=== PATIENT | female | born 1965 | race Caucasian/White ===

== ENCOUNTER 2021-10-06 10:02 | Outpatient (CLI) | payer OTHER, SELFPAY ==
--- OUTSIDE RECORDS SUMMARY | 2021-09-12 09:22 | XMS_ITS | Continuity of Care Document ---
:1965 Author Allergies, Adverse Reactions, Alerts Allergen Type Severity Reaction Last Updated Verified Status No Known Drug Allergy Unknown February Yes Active Allergy 2020 Social History Smoking Status Status Start Date End Date Date of Observat ion Never smoked tobacco March 182020 (finding) 4:28pm Observation Status Observation Response Date of Response History provided by Patient January 09, 2021 1 0:25pm Where do you live? Own home/apt January 09, 2021 1 0:25pm With whom do you live? Spouse January 09 10:25pm Additional Data Assigned Sex Female Problems Active Problems Medical Problem Onset Date Status Essential hypertension October 04, 2012 Active Hyperlipidemia October 04, 2012 Active Hypothyroidism October 04, 2012 Active Gastroesophageal Reflux October 04, 2012 Active Chronic osteoarthritis October 04, 2012 Active Total Shoulder Arthroplasty October 13, 2012 Active Lymphedema of both lower extremities Act chiquita Fatty liver Active Generalized anxiety disorder Active Diabetes mellitus, type II Active Morbid obesity with BMI of 50.0-59.9, Ac tive adult Medications Medication Status Dose Units Route Directions Qty Days Start End Ins tructions Date Date Amlodipine Active 5 MG PO Daily 30 Besylate Celecoxib Active 200 MG PO Daily (Celebrex) 200 Mg CAP Levothyroxine Active 125 MCG PO Daily 30 Sodium Lisinopril Active 40 MG PO Daily 30 Lorazepam Active 1 MG PO Bedtime as needed r 2020 9:17am Metformin Hcl Active 500 MG PO Twice Daily 60 With Meals Metoprolol Active 100 MG PO Twice A Day Tartrate Nystatin Active 1 NABIL TOP Twice A Day (Nystatin as needed Powder) 100,000 Unit/Gm POW Ondansetron Active 4 MG PO Every 6 20 Decembe Hcl Hours as r , (Ondansetron needed 2020 Odt) 4 Mg TAB 4:28pm Pantoprazole Active 40 MG PO Daily 30 Sodium Semaglutide Active 3 MG PO Daily (Rybelsus) 3 Mg TAB Simvastatin Active 10 MG PO Bedtime 30 Zolpidem Active 6.25 MG PO Bedtime as Tartrate Er needed Acetaminophen Disconti 650 MG PO Four Times 100 02 January De cemb nued Daily , er 2020, 11:10am 2020 4:26pm Acetaminophen Disconti 650 MG PO Once May (Tylenol) 325 nued , , Mg TAB 2018 2018 4:36pm 4:37pm Acetaminophen Disconti 1 TABLET PO Every 4-6 uar Au madina W/ Codeine nued Hours y , (Tylenol With 2011 2011 Codeine 11:44am 2:27pm Tablet (#3)) 1 Tablet TAB Acetaminophen Disconti 1-2 TAB PO Every 4 Dece b /Hydrocodone nued Hours as er er Bitart needed , , (Hydrocodone- 2013 2013 Acetaminophen 4:50pm 8:53am ) 5 Mg/325 Mg TAB Acetaminophen Disconti 1-2 TAB PO Q4-6H Prn 50 September /Hydrocodone nued , , Bitart 2012 2013 (Hydrocodone- 12:38pm 8:38am Acetaminophen ) 5 Mg/325 Mg TAB Acetaminophen Disconti 1-2 TAB PO Q4-6H Prn 50 October /Hydrocodone nued Bitart 2012 2013 (Hydrocodone- 3:38pm 8:38am Acetaminophen ) 5 Mg/325 Mg TAB Acetaminophen Disconti 1-2 TAB PO Q4-6H Prn 40 October /Hydrocodone nued , , Bitart 2012 2013 (Hydrocodone- 3:29pm 8:38am Acetaminophen ) 5 Mg/325 Mg TAB Acetaminophen Disconti 1 TABLET PO Every 4-6 Oct be PRN /Hydrocodone nued Hours r 4th, (FOR V ICODIN 5/500) 2010 (Vicodin) 5 9:47am Mg/500 Mg TAB Acetaminophen Disconti 1 - 2 TABLET PO Every 18 October Septem P RN /Hydrocodone nued Evening , Bitart 2006, (Vicodin) 5 2:27pm 2006 Mg/500 Mg TAB 10:01a m Alprazolam Disconti 0.5 MG PO Three Times 18 September Octobe (Xanax) 0.5 nued A Day as 18, r Mg TAB needed 2017, 8:53am 2020 8:19am Alprazolam Disconti 0.5 MG PO Three Times 30 Novemaugust (Xanax) 0.5 nued A Day as r , , Mg TAB needed 2016 2017 3:42pm 8:53am Aspirin Disconti 81 MG PO Daily 100 Novemb nued er 2020 9:09am Atenolol Disconti 50 MG PO Twice A Day August nued 2017 5:47pm Atenolol Disconti 2 TAB PO Daily Septembered 2012 7:27pm Atorvastatin Disconti 1 TABLET PO Daily 90 Februa Calcium nued ry (Lipitor) 10 , Mg TAB 2014 2:42pm Atorvastatin Disconti August Calcium nued , (Lipitor) 20 2007 Mg TAB 4:28pm Azelaic Acid Disconti 15 % EX Twice A Day September 10:24am 10:00a m Azelaic Acid Disconti 15 % EX Twice A Day August nued , 2018 7:54am 10:24a m Azelaic Acid Disconti 15 % EX Twice A Day 30 Februar Ju ne y 2018 2:33pm 7:54am Azelaic Acid Disconti 1 NABIL TOP Twice A Day 50 Novembe De cemb (Finacea) 15 nued r , er % AER 2018 01, 11:27am 2017 3:55pm Azelaic Acid Disconti 1 NABIL TOP Twice A Day 50 Novembe No vemb (Finacea) 15 nued r 29, er % AER 2017, 11:23am 2017 11:28a m Azithromycin Disconti 0 MG PO Daily September TA KE 500 MG (2 TABLETS) BY MOUTH TODAY, THEN 250 MG (1 TABLET) BY (Zithromax) nued r , MOUTH O NCE DAILY FOR 4 MORE DAYS. 250 Mg TAB 2007 2009 10:07am 1:30pm Azithromycin Disconti 0 MG PO Daily NAVI 2 TABLETS TOGETHER TODAY, THEN 1 TABLET ONCE DAILY FOR 4 MORE (Zithromax) nued er er DAYS 250 Mg TAB , 2007 9:23am 9:16am Azithromycin Disconti 0 MG PO Daily August TA KE 2 TABLETS TOGETHER TODAY, THEN 1 TABLET ONCE DAILY FOR 4 MORE (Zithromax) nued er , DAYS 250 Mg TAB 2007 4:28pm 10:43am Benzonatate Disconti 100 MG PO Three Times 15 May (Tessalon nued A Day as , , Saurabh) 100 needed 2018 2018 Mg CAP 5:02pm 11:09a m Benzonatate Disconti 100 MG PO Three Times Novem Mar ch nued A Day as r , , needed 2017 2018 6:19pm 4:08pm Cefadroxil Disconti 1 GM PO Twice A Day 20 Septemberb nued , er 2018 , 11:52am 2017 6:08pm Cefadroxil Disconti 1 GM PO Twice A Day 20 September nued , 2017 10:13am 11:29a m Celebrex Disconti 1 TAB PO Daily September 7:27pm Celecoxib Disconti 200 MG PO 1-2 Times Octoberem (Celebrex) nued Daily , apollo 200 Mg CAP 2006, 10:46am 2006 10:01a m Cephalexin Disconti 500 MG PO Four Times Decemb nued Daily er 2020 4:09pm Cephalexin Disconti 500 MG PO Three Times Octoberob e (Keflex) 500 nued A Day , r Mg CAP 2016, 8:07am 2016 10:31a m Cephalexin Disconti 750 MG PO Three Times Dece mb Monohydrate nued A Day r , er (Keflex) 750 2020, Mg CAP 9:15am 2020 1:36pm Clobetasol Disconti 1 NABIL TOP Twice A Day October e APPLY Propionate nued , r SPARINGLY TO (Clobetasol 2020, AFFECTED AREA Propionate 12:40pm 2020 Cream) 0.05 % 7:50am CRE Clobetasol Disconti 1 NABIL TOP Twice A Day July APPLY Propionate nued , , SPARINGLY TO (Clobetasol 2019 2020 AFFECTED AREA Propionate 10:20am 12:40p Cream) 0.05 % m CRE Clobetasol Disconti 1 NABIL TOP Three Times 15 Novembe Dece mb APPLY Propionate nued A Day as r 4th, er SPARI NGLY TO (Clobetasol needed 2015 04, AFFECTE D AREA Propionate 4:56pm 2019 Cream) 0.05 % 10:32a CRE m Clobetasol Disconti 0.05 % EX Bedtime December Propionate nued , , (Clobetasol 2012 2013 Propionate 4:06pm 8:38am Cream) 0.05 % CRE Cyclobenzapri Disconti 10 MG PO Three Times 30 Novembe M ay ne Hcl nued A Day as r , , needed 2018 2019 5:31pm 10:00a m Cyclobenzapri Disconti 10 MG PO Three Times 20 April J charles ne Hcl nued A Day as , , needed 2018 2018 10:10pm 11:09a m Cyclobenzapri Disconti 10 MG PO Three Times 09 January O ctobe ne Hcl nued A Day as 1st, r 2nd, needed 2015 2015 4:43pm 12:05a m Cyclobenzapri Disconti 10 MG PO Three Times May y ne Hcl nued A Day , , (Flexeril) 10 2012 2012 Mg TAB 9:54am 2:50pm Diazepam Disconti 5 MG PO Once 21 AugustSeptember 19 tab 30 (Valium) 5 Mg nued , 16, minute s prior TAB 2012 2012 to July 4:30pm 2:50pm repeat x1. Fluconazole Disconti 150 MG PO Once 2 Novembe Decemb ta ke 1 tab, nued r 1st, er repeat dose 2020, in 3 days if 2:16pm 2020 no relief in 4:26pm symptoms. Fluconazole Disconti 150 MG PO Once September Repe at dose (Diflucan) nued 17, er in 3 days if 150 Mg TAB 2017, needed. 11:52am 2017 6:08pm Fluconazole Disconti 150 MG PO Once September Repea t dose (Diflucan) nued , 17, in 3 days if 150 Mg TAB 2017 2017 needed. 12:13pm 11:29a m Fluconazole Disconti 150 MG PO Daily Marchem (Diflucan) nued , apollo 150 Mg TAB 2015, 10:15am 2015 1:47pm Fluconazole Disconti 150 MG PO Daily Marchem (Diflucan) nued , apollo 150 Mg TAB 2015, 11:46am 2015 1:47pm Furosemide Disconti 20 MG PO Daily as 15 Decemb (Lasix) 20 Mg nued needed r 3rd, er TAB 2020, 9:15am 2020 4:26pm Furosemide Disconti 20 MG PO Daily Marchem (Lasix) 20 Mg nued 18, apollo TAB 2015, 1:29pm 2015 1:47pm Ibuprofen Disconti 400 MG PO Four Times September nued Daily as , , needed 2017 2018 10:13am 11:09a m Ibuprofen Disconti 200 MG PO Q6h Prn Februa (Motrin Ib) nued ry 200 Mg TAB 2014 2:42pm Ivermectin Disconti 1 % EX Twice A Day 60 Decembe Jesus h Apply M&M (Rosacea) nued r , , sized am ount (Soolantra) 2017 to aff ected % CRE 3:52pm 4:08pm area twice daily Lactobacillus Disconti 1 TAB PO Three Times 90 18 January D ecemb May substitute with another probiotic instead, follow the (Lactobacillu nued A Day , er direct ions on the label, and complete 1 month course. s Probiotic) 2020, 1 Tab TAB 11:40am 2020 4:26pm Levofloxacin Disconti 500 MG PO Daily Octobe (Levaquin) nued er r 500 Mg TAB , , 2015 2016 2:02pm 10:31a m Levofloxacin Disconti 500 MG PO Daily Marchem (Levaquin) nued , apollo 500 Mg TAB 2015, 1:25pm 2015 1:47pm Levofloxacin Disconti 500 MG PO Daily Marchr (Levaquin) nued , y 500 Mg TAB 2015, 8:16am 2015 1:25pm Levothyroxine Disconti 125 MCG PO Daily 30 Januar Sodium nued y 7th, (Synthroid) 2016 150 Mcg TAB 1:31pm Levothyroxine Disconti Decemb Sodium nued er (Synthroid) 5th, 50 Mcg TAB 2007 9:16am Lisinopril Disconti 10 MG PO Daily 60 Decemb nued er 2014 8:27am Lorazepam Disconti 1 MG PO Bedtime as Decemb nued needed er 2020 1:36pm Lorazepam Disconti 0.5-1 MG PO Every 24 September nued Hours as , needed 2017 10:09a m Lorazepam Disconti 0.5 MG PO Once 1 May (Ativan) 0.5 nued er , , Mg TAB 2011 2012 8:37am 9:43am Melatonin Disconti 6 MG PO Bedtime as 60 18 January Decemb nued needed , er 2020, 11:10am 2020 4:26pm Methylprednis Disconti 1 TAB PO As Directed 09 November Ju ne DIRECTED olone (Medrol nued , ON PAC KAGE Dosepak) 4 Mg 2012 2013 [place] 9:04am 8:38am Methylprednis Disconti 1 PACK PO Once 1 Octobe TA KE olone (Medrol nued r 4th, DIREC LINDA ON Dose-[place]) 4 2010 PACKAGE Mg TAB 9:47am Nitrofurantoi Disconti 100 MG PO Twice A Day Dec emb n nued as needed er Monoh/Nitrofu , r Macro 2020 (Nitrofuranto 4:26pm in Monohydrate/M acrocrystalli ne) 100 Mg CAP Nitrofurantoi Disconti 100 MG PO Twice A Day 14 Decembe O ctobe n nued r , r Monoh/Nitrofu 2015, r Macro 5:00pm 2016 (Macrobid) 10:31a 100 Mg CAP m Oxycodone Hcl Disconti 5 MG PO Every 6 December Decem b nued Hours as , er needed 2020, 11:13am 2020 4:09pm Oxycodone Hcl Disconti 5 MG PO Every 4 September nued Hours as , , needed 2017 2017 10:13am 11:29a m Oxycodone/Palomo Disconti 1-2 TABLET PO Every 6 03 January Octo be taminophen nued Hours as 1st, r needed 2015, 4:43pm 2016 10:31a m Oxycodone/Palomo Disconti 1-2 TABLET PO Every 6 September taminophen nued Hours , , (Percocet) 2012 Mg/325 Mg TAB 7:32am 8:38am Oxymetazoline Disconti 1 % EX Every 60 Novembe Octobe Hcl (Topical) nued Morning r , r (Rhofade) 1 % 2018, CRE 10:24am 2020 7:50am Oxymetazoline Disconti 1 % EX Every 60 September Novemb Hcl (Topical) nued Morning 24, er (Rhofade) 1 % 2018, CRE 11:24am 2018 10:24a m Pantoprazole Disconti 40 MG PO Daily 30 Sodium nued ry (Protonix) 40 25th, Mg TABEC 2014 2:42pm Pantoprazole Disconti Septem Sodium nued apollo (Protonix) 40 25th, Mg TABEC 2006 10:01a m Phenazopyridi Disconti 200 MG PO Three Times 10 Decembe O ctobe ne Hcl nued A Day as r 2nd, r (Pyridium) needed 2015, 200 Mg TAB 5:00pm 2016 10:31a m Prednisone Disconti 20 MG PO Twice A Day July nued r , , 2018 2019 5:31pm 10:00a m Prednisone Disconti 40 MG PO Daily October nued 2011 3:02pm 9:43am Prednisone Disconti 40 MG PO Daily May nued er 2011 2:08pm 9:43am Promethazine Disconti 5 ML PO Qhs as 60 May cause dizziness/drowsiness. no driving while taking Hcl/Codeine nued needed , , medicat ion. (Promethazine 2018 2018 /Codeine 5:02pm 12:08a 6.25-10 Mg/5 m Ml) 1 Syp SYP Promethazine Disconti 1 - 2 TSP PO Every 4-6 120 Decembe Trish W/Codeine nued Hours as r , , (Phenergan W/ needed 2007 2009 Codeine) 6.25 10:07am 1:30pm Mg/10 Mg SYRP Promethazine Disconti 5 - ML PO Every 4-6 120 Sept Dece mb W/Codeine nued 10 Hours as er er (Phenergan W/ needed , , Codeine) 6.25 2007 2007 Mg/10 Mg SYRP 9:23am 9:16am Promethazine Disconti 1 EA PO Every 3-4 7 Sept em W/Codeine nued Hours er apollo (Phenergan W/ , , Codeine) 6.25 2006 2007 Mg/10 Mg SYRP 10:43am 9:01am Sulfacetamide Disconti 1 NABIL TOP Daily September Us e every Sodium nued , evening. (Klaron) 10 2018, LOT 11:22am 2020 7:50am Sulfamethoxaz Disconti 1 TABLET PO Twice A Day 14 [facility] ole-Trimethop nued er er rim (Bactrim , , Ds (800/160)) 2013 2013 800 Mg/160 Mg 4:50pm 8:53am TAB Tramadol Hcl Disconti 50 MG PO Every 6 March nued Hours as , , needed 2018 2018 10:10pm 4:08pm Tramadol Hcl Disconti 50-10 MG PO Every 4-6 [facility] (Ultram) 50 nued 0 Hours as r 11th, y 7th, MG /DAY Mg TAB needed 2014 2015 9:16am 1:30pm Tramadol Hcl Disconti 50-10 MG PO Every 6 May M AX 400 (Ultram) 50 nued 0 Hours as , , MG/DA Y Mg TAB needed 2014 2014 2:17pm 11:18a m Tramadol Hcl Disconti 50-10 MG PO Every 6 June M AX 400 (Ultram) 50 nued 0 Hours as , , MG/DA Y Mg TAB needed 2014 2014 11:17am 11:18a m Water Pill Disconti Septem nued apollo 2007 9:01am Zolpidem Disconti 5 MG PO Bedtime September Tartrate nued , , (Ambien) 5 Mg 2012 2013 TAB 7:32am 8:38am Immunizations Immunization Event Date Not Given Dose Hedge [employer] Manager Lot Vac cine Reason Number Number Informatio n Statement (VIS) Deta il COVID-19 Pfizer February 192019 COVID-19 Pfizer April 02, 2020 COVID-19 Pfizer November 222020 Influenza January 03, 1 2014 Influenza December 22, 5 2017 Influenza December 26, 2 2015 Influenza December 26, 3 2016 Influenza January 06, 4 2016 Influenza December 30, 6 2017 Influenza December 26, 8 2019 Influenza November 262019 Influenza December 21, 1 Flublock 2018 Pneumovax Adult March 30, 2019 Shingrix March 30, 2019 Tetanus/Diptheri December 22, 1 a 2011 Tdap December 22, 1 (adolescent/adul 2011 t) Tdap January 01, 2 (adolescent/adul 2011 t) Advance Directives Advance Directive Response Recorded Date/Time Does Pt have Health Care No April 21, 2 016 1:37am Directive? Has patient completed a No March 18, 2 021 4:28pm Health Care Directive? Insurance Providers Guarantor Fide White Address [address] [place] [address] Contact Info. Home Phone: Payer Policy Id Coverage Subscriber's Subscriber Effective Expira tion Id Name Id Date Date Preferred [id number] Rsoie White Plan of Treatment Future Tests Future scheduled test information is unavailable Pending Tests Pending diagnostic test information is unavailable Future Visits Future appointment information is unavailable Referrals to Other Providers Reason for Referral Start Provider Provider Contact Provider Address Referral Date Information Prior auth rec'd, patient going on vacation next week. [facility] will call for [facility], Orthopedic appointment. Services @ Prior auth rec'd, patient going on vacation next week. [facility] will call for NH+C, Orthopedic appointment. Services @ Future Procedures Future procedure information is unavailable Future Medications Future medication information is unavailable Patient Instructions Acetaminophen (By mouth) Oxycodone, Rapid Release (By mouth) Melatonin (By mouth) Probiotic (By mouth) Cellulitis (GEN)
--- NOTE | 2021-10-06 10:15 | CRLHL7_ITS ---
For Patients: As a result of the Century Cures Act, medical imaging exams and procedure reports are released immediately into your electronic medical record. You may view this report before your referring provider. If you have questions, please contact your health care provider. BILATERAL MAMMOGRAM WITH COMPUTER-AIDED DETECTION AND TOMOSYNTHESIS TECHNIQUE: CC and MLO views were obtained. These mammographic images have been obtained using full-field digital technique. These mammographic images were interpreted with the benefit of computer-aided detection. Breast Tomosynthesis was used in this interpretation. COMPARISON FILM: 10/03/2020, 10/03/2019, 06/03/2018. FINDINGS: There are scattered areas of fibroglandular density IMPRESSION: There is no radiographic evidence for malignancy. ASSESSMENT: BI-RADS Category 1: Negative RECOMMENDATION: Routine screening mammogram in 1 year. A lay language report of this examination will be provided to the patient. Jose Martinez M.D. Diagnostic Radiologist [email or web address] CHARLINE/nicko maharaj/Dictated by: Jose Martinez MD @ 10/06/2021 12:23:00 PM (Electronically Signed)
== END 2021-10-06 10:03 | disposition home or self-care (01) ==
PROVIDERS: PCP Family Medicine; Visit Provider Family Medicine
DX: Z12.31 Encounter for screening mammogram for malignant neoplasm of breast (principal)
CPT/HCPCS: 77063; 77067

== ENCOUNTER 2022-10-09 09:59 | Outpatient (CLI) | payer OTHER, SELFPAY ==
--- NOTE | 2022-10-09 10:15 | CRLHL7_ITS ---
For Patients: As a result of the Century Cures Act, medical imaging exams and procedure reports are released immediately into your electronic medical record. You may view this report before your referring provider. If you have questions, please contact your health care provider. BILATERAL SCREENING MAMMOGRAM WITH COMPUTER-AIDED DETECTION AND TOMOSYNTHESIS TECHNIQUE: CC and MLO views were obtained. These mammographic images have been obtained using full-field digital technique. These mammographic images were interpreted with the benefit of computer-aided detection. Breast Tomosynthesis was used in this interpretation. COMPARISON FILM: 10/06/21, 10/03/20, 01/25/20. FINDINGS: There are scattered areas of fibroglandular density IMPRESSION: There is no radiographic evidence for malignancy. ASSESSMENT: BI-RADS Category 2: Benign RECOMMENDATION: Routine screening mammogram in 1 year. A lay language report of this examination will be provided to the patient. Ozzy Franks M.D. Diagnostic/Nuclear Medicine Radiologist [email or web address] NEVA/Dictated by: Ozzy Franks MD @ 10/09/2022 11:31:00 AM (Electronically Signed)
== END 2022-10-09 10:00 | disposition home or self-care (01) ==
LOC: MAMMO 10:02
PROVIDERS: Visit Provider Family Medicine
DX: Z12.31 Encounter for screening mammogram for malignant neoplasm of breast (principal)
CPT/HCPCS: 77063; 77067

== ENCOUNTER 2022-12-04 12:50 | Outpatient (CLI) | payer OTHER, SELFPAY ==
--- NOTE | 2022-12-04 13:00 | CRLHL7_ITS ---
For Patients: As a result of the Century Cures Act, medical imaging exams and procedure reports are released immediately into your electronic medical record. You may view this report before your referring provider. If you have questions, please contact your health care provider. CLINICAL HISTORY: Right eye lump and swelling. TECHNIQUE: CT of the paranasal sinuses without contrast. Multiplanar reformats are included. COMPARISON: Sinus CT from 01/08/2021. FINDINGS: Frontal sinuses/frontal sinus drainage pathways and anterior ethmoid air cells: The frontal sinuses and anterior ethmoid air cells are well aerated. The frontoethmoidal drainage pathways are not obstructed. Posterior sinus group (posterior ethmoid air cells and sphenoid sinuses)/sphenoethmoidal recesses: The sphenoid sinuses and posterior ethmoid air cells are well aerated. The sphenoethmoidal drainage pathways and obstructed. Maxillary sinuses and ostiomeatal complexes: The maxillary sinuses are well aerated, and the maxillary sinus drainage pathways are nonobstructed. Turbinates: Left middle turbinate ce bullosa. Nasal septum: Moderate rightward nasal septal deviation and septal spur. Nasal cavity: No obstructive lesion within the nasal cavity. Skullbase, maxilla, TMJ: Keros type 2 on the left. Keros type 2 on the right. No lytic or blastic osseous lesions. No periapical tooth lucencies. Mastoid air cells are clear. Orbital contents: Within normal limits. Imaged intracranial contents: Within normal limits. Imaged soft tissues structures: Within normal limits. IMPRESSION: 1. No mass or other focal lesion within the right orbital/periorbital region. 2. Paranasal sinuses are well aerated, and their outflow tracts are not obstructed. 3. Moderate rightward nasal septal deviation and septal spur. Please note that all CT scans at this facility use dose modulation, iterative reconstruction, and/or weight-based dosing when appropriate to reduce radiation dose to as low as reasonably achievable. Dictated by Michele Galicia MD @ 12/04/2022 2:33:26 PM (Electronically Signed)
== END 2022-12-04 12:51 | disposition home or self-care (01) ==
LOC: CT 12:52
PROVIDERS: PCP Family Medicine; Visit Provider Nurse Practitioner Family
DX: R22.0 Localized swelling, mass and lump, head (principal); J34.2 Deviated nasal septum
CPT/HCPCS: 70486

== ENCOUNTER 2023-01-13 15:11 | Outpatient (CLI) | payer OTHER, SELFPAY ==
--- NOTE | 2023-01-13 15:30 | CRLHL7_ITS ---
For Patients: As a result of the Century Cures Act, medical imaging exams and procedure reports are released immediately into your electronic medical record. You may view this report before your referring provider. If you have questions, please contact your health care provider. INDICATION: Neck swelling. TECHNIQUE: Face MRI with contrast. The following sequences were obtained. Multiplanar T1 weighted, T2 weighted, stir and post contrast sequences. 20 cc of Dotarem intravenous contrast agent was used. COMPARISON: Sinus CT from 12/04/2022. FINDINGS: There is mild ill-defined enhancement underlying the marker at the right anterior maxillary/nasal junction, series 8, image 10. No mass or inflammatory process elsewhere within the imaged facial soft tissues. Deep spaces of the suprahyoid neck are normal. Visualized intracranial structures are within normal limits. Orbital contents within normal limits. No signal abnormality within the paranasal sinuses or mastoid air cells. No marrow replacing lesions. IMPRESSION: 1. Mild ill-defined enhancement at the right maxillary/nasal junction underlying the skin marker. Nonspecific and could be inflammatory in etiology. No discrete mass is visible at this location or elsewhere within the soft tissues of the neck. 2. No other significant soft tissue findings. Dictated by Michele Galicia MD @ 01/14/2023 3:56:47 PM (Electronically Signed)
== END 2023-01-13 15:12 | disposition home or self-care (01) ==
LOC: MRI 15:11
PROVIDERS: PCP Family Medicine; Visit Provider Otolaryngology
DX: R22.0 Localized swelling, mass and lump, head (principal)
CPT/HCPCS: 70543; A9575

== ENCOUNTER 2023-07-25 19:57 | Emergency (ER) | payer OTHER, SELFPAY ==
[2023-07-25 20:03] VITALS: BP 148/85; PULSE 109; RESP 18; TEMP 36.3; O2SAT 97; BMI 50.9
--- NOTE | 2023-07-25 20:25 | ED_ITS ---
HPI - General Adult General Chief complaint: Extremity Pain/Injury, Lower Stated complaint: R knee pain Time Seen by Provider: 07/25/23 20:15 History of Present Illness HPI narrative: Having on going right knee pain after an injury from December 2022. He right knee is bone on bone . Cortisone shot 3 months ago, and rooster cone injection was at [facility]. No pain relief. 58-year-old woman presenting to the emergency depart with complaint of right knee pain. Describes bone on bone related pain. Has seen orthopedics. She had a fall and injury in December of 2022. Was seen in urgent care I believe through [facility] at that time and directed to [facility] Orthopedics. Has had another flare of pain describing intense shocks of pain from the medial right knee. Notes though being evaluated to have ?ihrz-by-ajkq? in the right knee and recommended for weight loss which she finds rather discouraging at this point preceding knee replacement. Recent cortisone shot now about 3 months ago and also had ?restricted comb? injection as well. Pain has escalated but with this new co mponent. She also is starting to have some pain more in the left knee presumably from compensation. She has a lot of discomfort in attempts to straighten the knee in particular. Walking as course is painful as well. Clarified later that does have Celebrex but this just has not been enough. Does have an older meniscal injury/repair in the right knee some years ago at [facility]. Related Data Home Medications Medication Instructions Recorded Confirmed amlodipine 5 mg tablet 5 mg PO 12/15/21 07/27/23 blood sugar diagnostic (Contour #10 ea 12/15/21 01/21/23 Next Test Strips) blood-glucose meter (Contour Next #1 ea 12/15/21 01/21/23 Meter) celecoxib 200 mg capsule 200 mg PO QDAY 12/15/21 07/27/23 lancets (Microlet Lancet) #100 ea 12/15/21 01/21/23 levothyroxine 125 mcg tablet 125 mcg PO QDAY 12/15/21 07/27/23 lisinopril 40 mg tablet 40 mg PO QDAY 12/15/21 07/27/23 metoprolol tartrate 100 mg tablet 100 mg PO BID 12/15/21 07/27/23 pantoprazole 40 mg tablet,delayed ea PO 12/15/21 07/27/23 release semaglutide 14 mg tablet (Rybelsus) ea PO 12/15/21 07/27/23 simvastatin 10 mg tablet 10 mg PO QDAY 12/15/21 07/27/23 metformin 750 mg tablet,extended 750 mg PO DAILY 11/03/22 07/27/23 release 24 hr Previous Rx's Medication Instructions Recorded clobetasol 0.05 % topical cream 1 applic topical BID PRN itching 11/22/21 #15 grams Allergies Allergy/AdvReac Type Severity Reaction Status Date / Time No Known Drug Allergies Allergy Verified 07/27/23 15:27 Review of Systems Status of ROS: Reports: 6 or more systems reviewed and unremarkable except as noted in History and below PFSH PFSH Surgical History Hx of cholecystectomy ?Z90.49 - Acquired absence of other specified parts of digestive tract (ICD- 10) H/O section ?Z98.891 - History of uterine scar from previous surgery (ICD-10) History of arthroscopy of right knee (11/07/08) ?Z98.890 - Other specified postprocedural states (ICD-10) History of hysteroscopy (01/26/11) ?Z98.890 - Other specified postprocedural states (ICD-10) History of arthroscopy of left shoulder (10/12/12) ?Z98.890 - Other specified postprocedural states (ICD-10) History of arthroscopy of left knee (05/17/14) ?Z98.890 - Other specified postprocedural states (ICD-10) History of arthroscopy of right shoulder (02/21/15) ?Z98.890 - Other specified postprocedural states (ICD-10) Social History Smoking Status: Never smoker Exam Narrative: Exam Narrative: Pleasant. Seated uncomfortably on the edge of the bed. Overweight. Examination of the right knee in question shows reproducible tenderness in the area of the pes anserine bursa. There does appear to be mild joint effusion. Describes pain across the infrapatellar area of the anterior knee. No distal edema. Const: Vital Signs, click to edit/add: Vital Signs - 24 hr 07/25/23 20:03 Temperature 97.4 F L Pulse Rate [Right Pulse Oximeter] 109 H Respiratory Rate 18 Blood Pressure [Ri ght Upper Arm] 148/85 H Pulse Oximetry 97 Oxygen Delivery Me thod Room Air Documenting provider has reviewed patient's vital signs: yes Course Vital Signs Vital signs: Initial Vital Signs Temperature 97.4 F L 07/25/23 20:03 Temperature Source Temporal Artery Scan 07/25/23 20:03 Pulse Rate 109 H 07/25/23 20:03 Pulse Rhythm Regular 07/25/23 20:03 Respiratory Rate 18 07/25/23 20:03 Blood Pressure 148/85 H 07/25/23 20:03 Blood Pressure Mean 106 H 07/25/23 20:03 Blood Pressure Position Sitting 07/25/23 20:03 Pulse Oximetry 97 07/25/23 20:03 Oxygen Delivery Method Room Air 07/25/23 20:03 Vital Signs Temperature 97.4 F L 07/25/23 20:03 Pulse Rate 109 H 07/25/23 20:03 Respiratory Rate 18 07/25/23 20:03 Blood Pressure 148/85 H 07/25/23 20:03 Pulse Oximetry 97 07/25/23 20:03 Oxygen Delivery Method Room Air 07/25/23 20:03 Temperature 97.4 F L 07/25/23 20:03 Pulse Rate 109 H 07/25/23 20:03 Respiratory Rate 18 07/25/23 20:03 Blood Pressure 148/85 H 07/25/23 20:03 Pulse Oximetry 97 07/25/23 20:03 Oxygen Delivery Method Room Air 07/25/23 20:03 Medical Decision Making [facility] Narrative Medical decision making narrative: I am sure she does have osteoarthritic related pain at this point. I think there is a small joint effusion. Primarily need pain management in part to help with sleep lately as well. I do not know that further imaging will be beneficial here today. Cannot provide MRI either. Tenderness over this pes anserine bursa; I think this is the aspect related to major escalation in pain. Would not be injecting this area today. Will give some handout on pes anserine bursa. Would ice this area. Will provide pain management. I have discussed also with orthopedics on-call for close follow-up. Provided with crutches. It sounds like knee immobilizer would be too uncomfortable. See patient discharge plan for further discussion Medical Records Medical records reviewed: Yes I reviewed the patient's medical records Discharge Plan Discharge Clinical Impression: Knee joint pain Patient Disposition: Home w/ Parent or Adult Condition: Stable Additional Instructions: At least over the next few days it seems that resting your knee either with use of crutches or simply less ambulation would be a good idea. With a little food can continue with ibuprofen or at least your Celebrex. Can add up to 1000 mg of acetaminophen per dose. Prescribing [place] which contains 325 mg of acetaminophen per tablet and Flexeril from [facility]. Pending my conversation with Orthopedics I would anticipate then reaching out to you on Wednesday. It seems that you might have some component of this pes anserine bursitis. Take this paperwork in to your follow-up appointment. Like you, I do not think this explains all of your knee pain. Prescriptions: No Action metformin 750 mg tablet extended release 24 hr 750 mg PO DAILY Rybelsus 14 mg tablet PO Patient Comments: TAKE 1 TABLET BY MOUTH EVERY DAY BEFORE A MEAL amlodipine 5 mg tablet 5 mg PO metoprolol tartrate 100 mg tablet 100 mg PO BID lisinopril 40 mg tablet 40 mg PO QDAY levothyroxine 125 mcg tablet 125 mcg PO QDAY pantoprazole 40 mg tablet,delayed release (DR/EC) PO simvastatin 10 mg tablet 10 mg PO QDAY celecoxib 200 mg capsule 200 mg PO QDAY (DME) lancets [Microlet Lancet] Misc See Rx Instructions .ROUTE .MEDSUPPLY Qty: 100 Patient Comments: TEST DAILY Rx Instructions: As directed (DME) Contour Next Test Strips Strip See Rx Instructions .ROUTE .MEDSUPPLY Qty: 10 Patient Comments: TEST DAILY Rx Instructions: As directed (DME) blood-glucose meter [Contour Next Meter] Misc See Rx Instructions .ROUTE .MEDSUPPLY Qty: 1 Patient Comments: USE DIRECTED Rx Instructions: As directed clobetasol 0.05 % cream 1 applic topical BID PRN (Reason: itching) Qty: 15 2RF Follow Up/Referrals: Joann Brown DO [Primary Care Provider] - Stand Alone Forms: [facility] Info Instructions
--- OUTSIDE RECORDS SUMMARY | 2023-07-25 20:47 | XMS_ITS | Encounter Summary ---
Author Name Unknown [facility] Address [address] [address] Care Team Providers Care Ecotherapist Name Role Phone Found, No Pcp Primary Care Provider Unavailab le Encounter Details Date Type Department Care Team (Latest Contact Info) Description 10/04/1996 Orders Only Emilio Dewey MD Social History Tobacco Use Types Packs/Day Years Used Date Smoking Tobacco: Never Assessed Sex and Gender Information Value Date Recorded Sex Assigned at Not on file Gender Identity Not on file Sexual Orientation Not on file documented as of this encounter Plan of Treatment Not on file documented as of this encounter Visit Diagnoses Not on filedocumented in this encounter Care Teams Ecotherapist Relationship Specialty Start Date End Date Found, No Pcp, [address] [place] [address] PCP - General 07/05/23 documented as of this encounter
--- OUTSIDE RECORDS SUMMARY | 2023-07-25 20:47 | XMS_ITS | Encounter Summary ---
Author Name Unknown Organization [facility] Address [address] [address] Care Team Providers Care Bridal Service Sales And Management Name Role Phone Found, No Pcp Primary Care Provider Unavailab le Encounter Details Date Type Department Care Team (Latest Contact Info) Description 05/12/1998 Orders Only Garcia Grijalva Social History Tobacco Use Types Packs/Day Years Used Date Smoking Tobacco: Never Assessed Sex and Gender Information Value Date Recorded Sex Assigned at Not on file Gender Identity Not on file Sexual Orientation Not on file documented as of this encounter Plan of Treatment Not on file documented as of this encounter Visit Diagnoses Not on filedocumented in this encounter Care Teams Bridal Service Sales And Management Relationship Specialty Start Date End Date Found, No Pcp, [address] [place] [address] PCP - General 07/05/23 documented as of this encounter
--- OUTSIDE RECORDS SUMMARY | 2023-07-25 20:47 | XMS_ITS | Encounter Summary ---
Author Name Unknown Organization [facility] Address [address] [place] [address] Care Team Providers Care Wool Washer Name Role Phone Inés Lozada MD Primary Care Provider [phone] Reason for Visit * Reason Comments Refill Encounter Details Date Type Department Care Team (Late st Contact Info) Description 03/30/2023 Refill [facility] [address] [place] [address] Topher Smith MD [address] [place] [id number] Refill Social History Tobacco Use Types Packs/Day Years Used Date Smoking Tobacco: Never Assessed Sex and Gender Information Value Date Recorded Sex Assigned at Not on file Gender Identity Not on file Sexual Orientation Not on file documented as of this encounter Nursing Notes * Carmina Fajardo RN - 03/30/2023 4:36 PM CST Med refill was cancelled. ICATION MANAGER * Rian Mora - 03/30/2023 4:28 PM CST Patient called stating they do not need the medication refill. ICATION MANAGER * Carmina Fajardo RN - 03/30/2023 8:22 AM CST Refill request came in for Diclofenac from the pt's pharmacy. Digital Retoucher l/m on an unidentified vm asking the pt to [facility]. Given the mainline phone number and our hours of operation. Need to know if this is a refill that the pt. Is requesting, or if this is an automated refill request coming from the pharmacy. ICATION MANAGER documented in this encounter Plan of Treatment Not on file documented as of this encounter Visit Diagnoses Diagnosis Primary osteoarthritis of right knee- Primary Primary localized osteoarthrosis, lower leg Rotator cuff syndrome of right shoulder Disorders of bursae and tendons in shoulder region, unspecified documented in this encounter Care Teams Wool Washer Relationship Specialty Start Date End Date Inés Lozada MD [address] [place] [address] PCP - General 02/27/00 06/30/23 documented as of this encounter
--- OUTSIDE RECORDS SUMMARY | 2023-07-25 20:47 | XMS_ITS | Encounter Summary ---
Author Name Unknown Organization [facility] Address [address] [address] Care Team Providers Care Regulatory Administrator Name Role Phone Found, No Pcp Primary Care Provider Unavailab le Encounter Details Date Type Department Care Team (Latest Contact Info) Description 12/19/1996 Orders Only Inés Stauffer Social History Tobacco Use Types Packs/Day Years Used Date Smoking Tobacco: Never Assessed Sex and Gender Information Value Date Recorded Sex Assigned at Not on file Gender Identity Not on file Sexual Orientation Not on file documented as of this encounter Plan of Treatment Not on file documented as of this encounter Visit Diagnoses Not on filedocumented in this encounter Care Teams Regulatory Administrator Relationship Specialty Start Date End Date Found, No Pcp, [address] [place] [address] PCP - General 07/05/23 documented as of this encounter
--- OUTSIDE RECORDS SUMMARY | 2023-07-25 20:47 | XMS_ITS | Encounter Summary ---
Author Name Unknown Organization [facility] Address [address] [place] [address] Care Team Providers Care X Ray Technician Name Role Phone Found, No Pcp Primary Care Provider Unavailab le Encounter Details Date Type Department Care Team (Latest Contact Info) Description 06/12/1999 Orders Only Inés Lozada MD [address] [facility] [place] [address] Social History Tobacco Use Types Packs/Day Years Used Date Smoking Tobacco: Never Assessed Sex and Gender Information Value Date Recorded Sex Assigned at Not on file Gender Identity Not on file Sexual Orientation Not on file documented as of this encounter Plan of Treatment Not on file documented as of this encounter Visit Diagnoses Not on filedocumented in this encounter Care Teams X Ray Technician Relationship Specialty Start Date End Date Found, No PcpMD [address] [place] [address] PCP - General 07/05/23 documented as of this encounter
--- OUTSIDE RECORDS SUMMARY | 2023-07-25 20:47 | XMS_ITS | Clinical Summary ---
Author Name Unknown Organization [facility] Address [address] [place] [address] Care Team Providers Care Campaign Manager Name Role Phone Found, No Pcp MD Primary Care Provider Unavailab le Source Comments You are receiving this document as you are listed as the primary care provider,follow-up provider, or the patient has been referred to you for consultation.This is in compliance with the Medicare and[facility] Hospital[facility] EHR Incentive Program,which states Providers who transition their patient to another setting of careor provider of care or refers their patient to another provider of care shouldprovide summary care record for each transition of care or referral. Pending sale to [facility] Allergies No known active allergies Medications Medication Sig Dispensed Refills Start Date End Date Status amLODIPine (NORVASC) 5 MG tablet Take 1 Tablet (5 mg) by mouth daily. 12/13/2022 Active celecoxib (CELEBREX) 200 MG capsule Take 1 Capsule (200 mg) by mouth daily. 12/31/2022 Active ibuprofen (MOTRIN) 600 MG tablet Take 1 Tablet (600 mg) by mouth every 8 hours. 01/01/2023 Active levothyroxine (SYNTHROID) 125 MCG tablet Take 1 Tablet (125 mcg) by mouth daily. 12/09/2022 Active lisinopril (ZESTRIL) 40 MG tablet Take 1 Tablet (40 mg) by mouth daily. 01/27/2023 Active metFORMIN XR (GLUCOPHAGE XR) 750 MG 24 hour release tablet Take 1 Tablet (750 mg) by mouth daily. 12/31/2022 Active metoprolol tartrate (LOPRESSOR) 100 MG tablet Take 1 Tablet (100 mg) by mouth two times a day. 12/28/[address] (PROTONIX) 40 MG tablet Take 1 Tablet (40 mg) by mouth daily. 12/09/2022 Active RYBELSUS 14 MG tablet Take 1 Tablet by mouth daily. 01/10/2023 Active simvastatin (ZOCOR) 10 MG tablet Take 1 Tablet (10 mg) by mouth daily. 11/10/2022 Active cyclobenzaprine (FLEXERIL) 10 MG tablet Take 1 Tablet (10 mg) by mouth three times a day as needed for Muscle Spasms. 30 Tablet 01/31/2023 Active diclofenac (VOLTAREN) 75 MG enteric coated tablet Take 1 Tablet (75 mg) by mouth two times daily as needed. 30 Tablet 1 01/31/2023 Active Encounters Date Type Department Care Team Description 06/04/2023 9:20 AM CDT Office Visit [facility] [address] [place] [phone] Corona Hansen MD Primary osteoarthritis of right knee (Primary Dx) 05/14/2023 10:20 AM AEMT Office Visit [facility] [address] [place] [phone] Corona Hansen MD Primary osteoarthritis of right knee (Primary Dx) 05/14/2023 Telephone [facility] [id number] [place] [phone] Corona Hansen MD Prior Authorization Request (Gel injection) from Last 3 Months Immunizations Name Administration Dates Next Due PPSV23 (Pneumovax) 06/11/2000 Td 01/16/1998,03/20/1988 Varicella 11/07/1997(Deferred: Immune by Tj loredo) Social History Tobacco Use Types Packs/Day Years Used Date Smoking Tobacco: Never Smokeless Tobacco: Never Tobacco Cessation:Counseling Given: Not Answered Sex and Gender Information Value Date Recorded Sex Assigned at Not on file Gender Identity Not on file Sexual Orientation Not on file Last Filed Vital Signs Vital Sign Reading Time Taken Comments Blood Pressure - - Pulse - - Temperature 37.1 ??C (98.7 ??F) 01/31/2023 4:36 PM CS T Respiratory Rate - - Oxygen Saturation - - Inhaled Oxygen Concentration - - Weight 156.5 kg (345 lb) 05/14/2023 10:00 AM AEMT Height 175.3 cm (5' 9) 05/14/2023 10:00 AM AEMT Body Mass Index 50.95 05/14/2023 10:00 AM AEMT Plan of Treatment Health Maintenance Due Date Last Done Comments Cervical Cancer Screening Due 1965 Colon Cancer Screening Plan Due 1964 Hep C Screening (Preventive Services) 1965 Mammogram 1964 HIV Screening (Preventive Services) 1980 HepB (1) 1983 Adult Preventive Visit 01/16/1999 01/16/1998 Cholesterol 2009 01/16/1998 Diabetes Screening- (based on age and BMI) 02/10/2026 02/10/2023, 11/09/2022, 07/13/2022, Additional history exists DTaP/Tdap/Td (5 - Tdap) 07/13/2032 07/14/19, 01/02/2012, 12/23/2011, Additional history exists Zoster/Shingles Completed 05/19/2021, 03/30/2019 Pneumococcal Aged Out 07/13/2022, 11/2019, 06/11/2000 No longer eligible based on patient's age to complete this topic COVID-19 Vaccine Completed 01/22/2023, , 07/10/2021, Additional history exists Influenza Completed 01/22/2023, 11/21, 12/18/2020, Additional history exists HepA Aged Out No longer eligi ble based on patient's age to complete this topic Hib Aged Out No longer eligi ble based on patient's age to complete this topic IPV (Polio) Aged Out No longer eligi ble based on patient's age to complete this topic MCV4 Aged Out No longer eligi ble based on patient's age to complete this topic Procedures Procedure Name Priority Date/Time Associated Diagnosis Comments HGB A1C (EXTERNAL RESULT) Routine 02/10/2023 2:51 PM AEMT CHOLESTEROL (TOTAL) Routine 01/16/1998 1 1:49 AM AEMT from Last 3 Months or Most Recently Relevant to Health Maintenance Results * (ABNORMAL) CHOLESTEROL (TOTAL) (01/16/1998 11:49 AM AEMT) Cholesterol 238(H) <200 mg/dl [facility] Cholesterol Result should not be interpreted without the patient's history of cardiovascular risk factors. [facility] 01/16/1998 11:4 9 AM AEMT 01/16/1998 11:50 AM AEMT Emilio Dewey MD [facility] [address] [phone] from Last 3 Months or Most Recently Relevant to Health Maintenance Care Teams Campaign Manager Relationship Specialty Start Date End Date Found, No Pcp, [address] [place] [address] PCP - General 07/05/23
--- OUTSIDE RECORDS SUMMARY | 2023-07-25 20:47 | XMS_ITS | Encounter Summary ---
Author Name Unknown Organization [facility] Address [address] [place] [address] Care Team Providers Care Follow Up Clerk Name Role Phone Inés Lozada MD Primary Care Provider [phone] Reason for Visit * Reason Comments CONSULT Pt states she fell p december and has had pain since. Pt treating pain with Tylenol, ib profen, ice, elevation Pt states she will get zingers of pain that shoot down the middle of the knee. Encounter Details Date Type Department Care Team (Latest Contact Info) Description 05/14/2023 10:20 AM FAMILY HELPER Office Visit [facility] [address] [place] [address] Corona Hansen MD [address] [facility] [address] [place] [address] Primary osteoarthritis of right knee (Primary Dx) Social History Tobacco Use Types Packs/Day Years Used Date Smoking Tobacco: Never Smokeless Tobacco: Never Tobacco Cessation:Counseling Given: Not Answered Sex and Gender Information Value Date Recorded Sex Assigned at Not on file Gender Identity Not on file Sexual Orientation Not on file documented as of this encounter Last Filed Vital Signs Vital Sign Reading Time Taken Comments Blood Pressure - - Pulse - - Temperature - - Respiratory Rate - - Oxygen Saturation - - Inhaled Oxygen Concentration - - Weight 156.5 kg (345 lb) 05/14/2023 10:00 AM FAMILY HELPER Height 175.3 cm (5' 9) 05/14/2023 10:00 AM FAMILY HELPER Body Mass Index 50.95 05/14/2023 10:00 AM FAMILY HELPER documented in this encounter Progress Notes * Corona Hansen MD - 05/14/2023 10:20 AM CST Chief Complaint: Right knee pain. History: Patient presents for evaluation of right knee pain. She had an injury to her right knee back on 01/01/2023. She had a fall onto her right side. She was seen in the emergency department and x-rays had been obtained for some complaints of knee and shoulder pain. She was subsequently seen in [facility] on 01/31/2023. At that time they had reviewed her x-rays and noted right knee osteoarthritis. A corticosteroid injection was performed to try in give the patient pain relief. She did note some temporary improvement after the corticosteroid injection but it did not last for more than a couple of weeks. Patient has a prior history of what sounds like arthroscopic surgery on her right knee approximately 8-10 years ago. Records for that procedure are not available. At this point she is having pain on a daily basis with any type of weight- bearing activities. Pain symptoms are significant and are interfering with her ability to do normal daily activities. Improvement with the corticosteroid injection was short-lived. She has tried rest and activity modification. She is tried low-impact exercise activity for the knee. She is tried snpc-pzl-xqbzkkf arthritis medications for the knee pain. All of these have been ineffective at providing meaningful pain relief. Meds, PMHx, PSHx, and allergies - see EMR. ROS: Musculoskeletal ROS is significant for right knee issues outlined above. Exam: Awake and alert. Fully oriented. Range motion of the right knee is satisfactory but with crepitation. There is no erythema or excessive warmth associated with the right knee. BMI is 51. Right knee is stable to varus and valgus stress. Patellar mobility and tracking appears appropriate. CMS intact. Skin intact. Imaging: X-rays from 01/01/2023 were reviewed and show evidence of osteoarthritic change in the right knee with joint space narrowing and joint line osteophytes. Assessment: Right knee osteoarthritis Plan: Treatment options were discussed with the patient. She has failed appropriate conservative management for her knee pain. I recommended to her that the next step would be to try viscosupplementation injection. We will initiate prior authorization for viscosupplementation injection for the right knee. A total of 20 minutes was spent between pre-visit chart review, review of imaging, and direct face to face consultation with the patient. LY HELPER documented in this encounter Plan of Treatment Not on file documented as of this encounter Visit Diagnoses Diagnosis Primary osteoarthritis of right knee- Primary Primary localized osteoarthrosis, lower leg documented in this encounter Care Teams Follow Up Clerk Relationship Specialty Start Date End Date Inés Lozada MD [address] [place] [address] PCP - General 02/27/00 06/30/23 documented as of this encounter
--- OUTSIDE RECORDS SUMMARY | 2023-07-25 20:47 | XMS_ITS | Encounter Summary ---
Author Name Unknown Organization [facility] Address [address] [place] [address] Care Team Providers Care Cyber Security Architect Name Role Phone Inés Lozada MD Primary Care Provider [phone] Reason for Visit * Reason Comments Prior Authorization Request Gel injectio n Encounter Details Date Type Department Care Team (Late st Contact Info) Description 05/14/2023 Telephone [facility] [address] [place] [address] Corona Hansen MD [address] [facility] [address] [place] [address] Prior Authorization Request (Gel injection) Social History Tobacco Use Types Packs/Day Years Used Date Smoking Tobacco: Never Smokeless Tobacco: Never Sex and Gender Information Value Date Recorded Sex Assigned at Not on file Gender Identity Not on file Sexual Orientation Not on file documented as of this encounter Nursing Notes * Lay Ho OA - 05/26/2023 1:46 PM CST LVM for pt that NATANAEL was approved and provided scheduling information. EY ASSOCIATE * Naeem Barahona - 05/26/2023 8:54 AM CST Prior Authorization Approval PA has been approved Date Entered: 05/26/23 8:48 AM JCODE: [id number] Medication: Durolane Dosing/Frequency:60mg once into right knee DX: M17.11 Provider: Tyrone Location: Mien Atkins: /TID: [id number] Insurance: Clarissa Contact/Submission: Clarissa Auth #: [id number] Auth Dates: 05/19/23 - 11/26/23 EY ASSOCIATE * Paola Fajardo CMA - 05/19/2023 3:50 PM CST Routing to PA dept.since the notes are in per provider. EY ASSOCIATE * Paola Fajardo CMA - 05/18/2023 5:42 PM CST Routing to provider and OA EY ASSOCIATE * Naeem Barahona - 05/18/2023 12:23 PM CST Hello, We have been unable to start this PA, as Dr. Hansen's office note is not available. Please let us know when he has dictated it and it is in the chart. Thank you EY ASSOCIATE * Paola Fajardo CMA - 05/14/2023 10:52 AM CST To Whom it May Concern: We are requesting Prior Authorization for this patient's next plan of care. Once approval has been granted we will assist in contacting the patient or scheduling the patient for their appropriate services. Patient Name Fide Millan 1965 Patient Insurance [employer] Body Part Right Knee Procedure Name Gel injection Durolane, Gelyns-3 Euflexxa Ordering Provider Corona Hansen Requesting Location [facility] EY ASSOCIATE documented in this encounter Plan of Treatment Not on file documented as of this encounter Visit Diagnoses Not on filedocumented in this encounter Care Teams Cyber Security Architect Relationship Specialty Start Date End Date Inés Lozada MD [address] [place] [address] PCP - General 02/27/00 06/30/23 documented as of this encounter
--- OUTSIDE RECORDS SUMMARY | 2023-07-25 20:47 | XMS_ITS | Encounter Summary ---
Author Name Unknown Organization [facility] Address [address], [place] [address] Care Team Providers Care Refractory Products Supervisor Name Role Phone Found, No Pcp Primary Care Provider Unavailab le Encounter Details Date Type Department Care Team (Latest Contact Info) Description 11/20/1998 Orders Only Emilio Dewey MD Social History [...] on filedocumented in this encounter Care Teams Refractory Products Supervisor Relationship Specialty Start Date End Date Found, No Pcp, [address] [place] [address] PCP - General 07/05/23 documented as of this encounter
--- OUTSIDE RECORDS SUMMARY | 2023-07-25 20:47 | XMS_ITS | Encounter Summary ---
Author Name Unknown Organization [facility]ending [facility] Address [address], [place] [address] Care Team Providers Care Electrical Equipment Tester Name Role Phone Found, No Pcp Primary Care Provider Unavailab le Encounter Details Date Type Department Care Team (Latest Contact Info) Description 06/11/1999 Orders Only Emilio Dewey MD Social History [...] on filedocumented in this encounter Care Teams Electrical Equipment Tester Relationship Specialty Start Date End Date Found, No Pcp, [address] [place] [address] PCP - General 07/05/23 documented as of this encounter
--- OUTSIDE RECORDS SUMMARY | 2023-07-25 20:47 | XMS_ITS | Encounter Summary ---
Author Name Unknown Organization [facility] Address [address] [place] [address] Care Team Providers Care Plane Tableman Name Role Phone Inés Lozada MD Primary Care Provider [phone] Reason for Referral * (Routine) - New Request Specialty Diagnoses / Procedures Referred By Contac t Referred To Contact Diagnoses Primary osteoarthritis of right knee Procedures DUROLANE (per 1 MG)- quantity =60 Corona Hansen MD [address] [facility] [address] [place] [address] Referral ID Status Reason Start Date Expiration Date V isits Requested Visits Authorized [id number] New Request 07/13/2023 10/11/2024 1 1 Reason for Visit * Reason Comments Follow-up Right knee durolane gel injection Encounter Details Date Type Department Care Team (Latest Contact Info) Description 06/04/2023 9:20 AM CDT Office Visit [facility] [address] [place] [address] Corona Hansen MD [address] [facility] [address] [place] [address] Primary osteoarthritis of right knee (Primary Dx) Social History Tobacco Use Types Packs/Day Years Used Date Smoking Tobacco: Never Smokeless Tobacco: Never Sex and Gender Information Value Date Recorded Sex Assigned at Not on file Gender Identity Not on file Sexual Orientation Not on file documented as of this encounter Patient Instructions * Patient Instructions* Paola Fajardo CMA - 06/04/2023 9:20 AM CDT The right knee was injected with Durolane. Avoid Strenuous Activity for the remainder of the day and avoid activities that cause pain for one to two weeks following the injection. Signs and Symptoms to watch for: If you have any redness, warmth or increasing pain at the site of the injection or develop a fever,please call [phone] Thank you for choosing [facility] for your health care visit today. Corona Hansen MD Orthopedic Surgeon Lower Extremity [facility] Advanced Imaging Scheduling: To schedule advanced imaging including MRI's, CT Scans, Ultrasounds and Fluoroscopic guided injections at a [facility] location please call [phone]. Medication Requests: Prescriptions are not filled on weekends or on weekdays after 3:00 PM. For all medication refills: Request a refill using [employer] or contact your pharmacy. [facility] Workers[employer] [address] [place] [address] (Phone) Email: [email or web address] What is Know Your Cost? Know Your Cost is a service for patients and patient/members to call and receive personalized cost information and estimates across our care group. The phone number is (COST) Wednesday - Wednesday 8 AM to 5 PM Release of Information: Radiology/Imaging Health Information Management [address] [facility] [address] [place] [address] [place] [address] (Phone) [phone] (Phone) [employer] documented in this encounter Progress Notes * Corona Hansen MD - 06/04/2023 9:20 AM CDT Chief Complaint: Right knee pain. History: Patient returns for viscosupplementation injection for her right knee. She has right knee osteoarthritis. Meds, PMHx, PSHx, and allergies - see EMR. ROS: Musculoskeletal ROS is significant for right knee issues outlined above. Exam: Awake and alert. Fully oriented. Range motion of the right knee is satisfactory but with crepitation. There is no obvious swelling or joint effusion. There is no erythema or excessive warmth associated with the right knee. CMS intact. Skin intact. Imaging: No new imaging Assessment: Right knee osteoarthritis Plan: Risks and complications associated with a viscosupplementation injection were discussed with the patient. Verbal informed consent was obtained. After sterile prep of the right knee, the right knee was injected with 60 units of Durolane solution without noted complication. Follow up on an as-needed basis. documented in this encounter Plan of Treatment Not on file documented as of this encounter Visit Diagnoses Diagnosis Primary osteoarthritis of right knee- Primary Primary localized osteoarthrosis, lower leg documented in this encounter Care Teams Plane Tableman Relationship Specialty Start Date End Date Inés Lozada MD [address] [place] [address] PCP - General 02/27/00 06/30/23 documented as of this encounter
--- OUTSIDE RECORDS SUMMARY | 2023-07-25 20:47 | XMS_ITS | Encounter Summary ---
Author Name Unknown Organization [facility] Address [address] [place] [address] Care Team Providers Care Permastone Applicator Name Role Phone Found, No Pcp Primary Care Provider Unavailab le Encounter Details Date Type Department Care Team (Latest Contact Info) Description 08/17/1996 Orders Only Paulina Villegas MD [address] [facility] [address] [place], [place] [address] Social History Tobacco Use Types Packs/Day Years Used Date Smoking Tobacco: Never Assessed Sex and Gender Information Value Date Recorded Sex Assigned at Not on file Gender Identity Not on file Sexual Orientation Not on file documented as of this encounter Plan of Treatment Not on file documented as of this encounter Visit Diagnoses Not on filedocumented in this encounter Care Teams Permastone Applicator Relationship Specialty Start Date End Date Found, No PcpMD [address] [place] [address] PCP - General 07/05/23 documented as of this encounter
--- OUTSIDE RECORDS SUMMARY | 2023-07-25 20:47 | XMS_ITS | Encounter Summary ---
Author Name Unknown Organization [facility] Address [address], [place] [address] Care Team Providers Care Director Medical Safety Name Role Phone Found, No Pcp Primary Care Provider Unavailab le Encounter Details Date Type Department Care Team (Latest Contact Info) Description 04/05/1997 Orders Only Emilio Dewey MD Social History [...] on filedocumented in this encounter Care Teams Director Medical Safety Relationship Specialty Start Date End Date Found, No Pcp, [address] [place] [address] PCP - General 07/05/23 documented as of this encounter
--- OUTSIDE RECORDS SUMMARY | 2023-07-25 20:47 | XMS_ITS | Encounter Summary ---
Author Name Unknown Organization [facility] Address [address], [place] [address] Care Team Providers Care Volcanology Teacher Name Role Phone Found, No Pcp Primary Care Provider Unavailab le Encounter Details Date Type Department Care Team (Latest Contact Info) Description 05/01/1997 Orders Only Dasia Wayne DDS Social History Tobacco Use Types Packs/Day Years Used Date Smoking Tobacco: Never Assessed Sex and Gender Information Value Date Recorded Sex Assigned at Not on file Gender Identity Not on file Sexual Orientation Not on file documented as of this encounter Plan of Treatment Not on file documented as of this encounter Visit Diagnoses Not on filedocumented in this encounter Care Teams Volcanology Teacher Relationship Specialty Start Date End Date Found, No Pcp, [address] [place] [address] PCP - General 07/05/23 documented as of this encounter
--- OUTSIDE RECORDS SUMMARY | 2023-07-25 20:47 | XMS_ITS | Encounter Summary ---
Author Name Unknown Organization [facility] Address [address] [place] [address] Care Team Providers Care Security Attendant Name Role Phone Found, No Pcp Primary Care Provider Unavailab le Encounter Details Date Type Department Care Team (Latest Contact Info) Description 06/30/1997 Orders Only Kyree Coronado MD [address] [place], [place] [id number] Social History Tobacco Use Types Packs/Day Years Used Date Smoking Tobacco: Never Assessed Sex and Gender Information Value Date Recorded Sex Assigned at Not on file Gender Identity Not on file Sexual Orientation Not on file documented as of this encounter Plan of Treatment Not on file documented as of this encounter Visit Diagnoses Not on filedocumented in this encounter Care Teams Security Attendant Relationship Specialty Start Date End Date Found, No Pcp, [address] [place] [address] PCP - General 07/05/23 documented as of this encounter
--- OUTSIDE RECORDS SUMMARY | 2023-07-25 20:47 | XMS_ITS | Encounter Summary ---
Author Name Unknown Organization [facility] Address [address], [place] [address] Care Team Providers Care Ict Help Desk Technician Name Role Phone Found, No Pcp Primary Care Provider Unavailab le Encounter Details Date Type Department Care Team (Latest Contact Info) Description 01/21/1998 Orders Only Emilio Dewey MD Social History [...] on filedocumented in this encounter Care Teams Ict Help Desk Technician Relationship Specialty Start Date End Date Found, No Pcp, [address] [place] [address] PCP - General 07/05/23 documented as of this encounter
--- OUTSIDE RECORDS SUMMARY | 2023-07-25 20:47 | XMS_ITS | Encounter Summary ---
Author Name Unknown Organization [facility] Address [address] [place] [address] Care Team Providers Care Sourcing Internship Name Role Phone Found, No Pcp Primary Care Provider Unavailab le Encounter Details Date Type Department Care Team (Latest Contact Info) Description 12/22/1997 Orders Only Nikhil Ceja MD [address] [place], [place] [address] Social History Tobacco Use Types Packs/Day Years Used Date Smoking Tobacco: Never Assessed Sex and Gender Information Value Date Recorded Sex Assigned at Not on file Gender Identity Not on file Sexual Orientation Not on file documented as of this encounter Plan of Treatment Not on file documented as of this encounter Visit Diagnoses Not on filedocumented in this encounter Care Teams Sourcing Internship Relationship Specialty Start Date End Date Found, No Pcp, [address] [place] [address] PCP - General 07/05/23 documented as of this encounter
--- OUTSIDE RECORDS SUMMARY | 2023-07-25 20:47 | XMS_ITS | Encounter Summary ---
Author Name Unknown Organization [facility] Address [address], [place] [address] Care Team Providers Care Foundry Laborer Coreroom Name Role Phone Found, No Pcp Primary Care Provider Unavailab le Encounter Details Date Type Department Care Team (Latest Contact Info) Description 05/13/1998 Orders Only Per Elias MD Social History Tobacco Use Types Packs/Day Years Used Date Smoking Tobacco: Never Assessed Sex and Gender Information Value Date Recorded Sex Assigned at Not on file Gender Identity Not on file Sexual Orientation Not on file documented as of this encounter Plan of Treatment Not on file documented as of this encounter Visit Diagnoses Not on filedocumented in this encounter Care Teams Foundry Laborer Coreroom Relationship Specialty Start Date End Date Found, No Pcp, [address] [place] [address] PCP - General 07/05/23 documented as of this encounter
--- OUTSIDE RECORDS SUMMARY | 2023-07-25 20:48 | XMS_ITS | Encounter Summary ---
Author Name Unknown Organization [facility] Address [address], [place] [address] Care Team Providers Care University Controller Name Role Phone Found, No Pcp Primary Care Provider Unavailab le Encounter Details Date Type Department Care Team (Latest Contact Info) Description 06/19/1994 Orders Only Inés Stauffer Social History Tobacco [...] on filedocumented in this encounter Care Teams University Controller Relationship Specialty Start Date End Date Found, No Pcp, [address] [place] [address] PCP - General 07/05/23 documented as of this encounter
--- OUTSIDE RECORDS SUMMARY | 2023-07-25 20:48 | XMS_ITS | Encounter Summary ---
Author Name Unknown Organization [facility] Address [address], [place] [address] Care Team Providers Care Fan Installer Name Role Phone Found, No Pcp Primary Care Provider Unavailab le Encounter Details Date Type Department Care Team (Latest Contact Info) Description 12/07/1995 Orders Only Inés Stauffer Social History Tobacco [...] on filedocumented in this encounter Care Teams Fan Installer Relationship Specialty Start Date End Date Found, No Pcp, [address] [place] [address] PCP - General 07/05/23 documented as of this encounter
--- OUTSIDE RECORDS SUMMARY | 2023-07-25 20:48 | XMS_ITS | Encounter Summary ---
Author Name Unknown Organization [facility] Address [address] [address] Care Team Providers Care Field Sales Executive Name Role Phone Found, No Pcp Primary Care Provider Unavailab le Encounter Details Date Type Department Care Team (Latest Contact Info) Description 07/25/1996 Orders Only Inés Stauffer Social History Tobacco [...] on filedocumented in this encounter Care Teams Field Sales Executive Relationship Specialty Start Date End Date Found, No Pcp, [address] [place] [address] PCP - General 07/05/23 documented as of this encounter
--- OUTSIDE RECORDS SUMMARY | 2023-07-25 20:48 | XMS_ITS | Encounter Summary ---
Author Name Unknown Organization [facility] Address [address] [address] Care Team Providers Care Cryogenics Engineer Name Role Phone Found, No Pcp Primary Care Provider Unavailab le Encounter Details Date Type Department Care Team (Latest Contact Info) Description 08/12/1996 Orders Only Joshua Váz[place] [address] [place] [address] Social History Tobacco Use Types Packs/Day Years Used Date Smoking Tobacco: Never Assessed Sex and Gender Information Value Date Recorded Sex Assigned at Not on file Gender Identity Not on file Sexual Orientation Not on file documented as of this encounter Plan of Treatment Not on file documented as of this encounter Visit Diagnoses Not on filedocumented in this encounter Care Teams Cryogenics Engineer Relationship Specialty Start Date End Date Found, No Pcp, [address] [place] [address] PCP - General 07/05/23 documented as of this encounter
--- OUTSIDE RECORDS SUMMARY | 2023-07-25 20:48 | XMS_ITS | Referral Summary ---
Author Name Unknown Organization [facility] Address [address] [place] [address]. [place] [address] Care Team Providers Care Attenuator Name Role Phone Mp Brown Primary Care Provider [phone] Allergies No known active allergies Medications Medication Sig Dispensed Refills Start Date End Date Status cyclobenzaprine (FLEXERIL) 10 MG tablet Take 1 tablet (10 mg) by mouth 3 times daily as needed for muscle spasms 15 tablet 01/01/2023 Active ibuprofen (ADVIL/MOTRIN) 600 MG tablet Take 1 tablet (600 mg) by mouth every 8 hours as needed for moderate pain 30 tablet 01/01/2023 Active Social History Tobacco Use Types Packs/Day Years Used Date Smoking Tobacco: Never Assessed Adolescent Education Answer Date Record ed Getting School Help Needed Not on file 01/01 Sex and Gender Information Value Date Recorded Sex Assigned at Not on file Gender Identity Not on file Sexual Orientation Not on file Last Filed Vital Signs Vital Sign Reading Time Taken Comments Blood Pressure 177/98 01/01/2023 12:27 PM CDT Pulse 97 01/01/2023 12:27 PM CDT Temperature 37.2 ??C (99 ??F) 01/01/2023 12: 27 PM CDT Respiratory Rate 18 01/01/2023 12:2 7 PM CDT Oxygen Saturation 99% 01/01/2023 12: 27 PM CDT Inhaled Oxygen Concentration - - Weight 158.3 kg (348 lb 15.8 oz) 2022 12:27 PM CDT Height 175.3 cm (5' 9) 01/01/2023 12:2 7 PM CDT Body Mass Index 51.54 01/01/2023 12:27 PM CDT Plan of Treatment Not on file Care Teams Attenuator Relationship Specialty Start Date End Date Mp Brown DO [address] [place] [address] PCP - General 01/01/23
--- OUTSIDE RECORDS SUMMARY | 2023-07-25 20:48 | XMS_ITS | Encounter Summary ---
Author Name Unknown Organization [facility] Address [address] [address] Care Team Providers Care Applications Programmer Name Role Phone Found, No Pcp Primary Care Provider Unavailab le Encounter Details Date Type Department Care Team (Latest Contact Info) Description 07/02/1994 [place] [address] [place] [address] Social History Tobacco Use Types [...] on filedocumented in this encounter Care Teams Applications Programmer Relationship Specialty Start Date End Date Found, No Pcp, [address] [facility] [place] [address] PCP - General 07/05/23 documented as of this encounter
--- OUTSIDE RECORDS SUMMARY | 2023-07-25 20:48 | XMS_ITS | Encounter Summary ---
Author Name Unknown Organization [facility] Address [address] [address] Care Team Providers Care Relationship Associate Name Role Phone Found, No Pcp Primary Care Provider Unavailab le Encounter Details Date Type Department Care Team (Latest Contact Info) Description 07/31/1994 Orders Only Emilio Dewey MD Social History [...] on filedocumented in this encounter Care Teams Relationship Associate Relationship Specialty Start Date End Date Found, No Pcp, [address] [place] [address] PCP - General 07/05/23 documented as of this encounter
--- OUTSIDE RECORDS SUMMARY | 2023-07-25 20:48 | XMS_ITS | Encounter Summary ---
Author Name Unknown Organization [facility] Address [address] [address] Care Team Providers Care Investigator Fraud Name Role Phone Found, No Pcp Primary Care Provider Unavailab le Encounter Details Date Type Department Care Team (Latest Contact Info) Description 01/15/1995 Orders Only Emilio Dewey MD Social History [...] on filedocumented in this encounter Care Teams Investigator Fraud Relationship Specialty Start Date End Date Found, No Pcp, [address] [place] [address] PCP - General 07/05/23 documented as of this encounter
--- OUTSIDE RECORDS SUMMARY | 2023-07-25 20:48 | XMS_ITS | Encounter Summary ---
Author Name Unknown Organization [facility] Address [address] [address] Care Team Providers Care Wet Mixer Name Role Phone Found, No Pcp Primary Care Provider Unavailab le Encounter Details Date Type Department Care Team (Late st Contact Info) Description 06/05/1995 Orders Only [facility] Scott Pedroza MD [address] [address] Social History Tobacco Use Types Packs/Day Years Used Date Smoking Tobacco: Never Assessed Sex and Gender Information Value Date Recorded Sex Assigned at Not on file Gender Identity Not on file Sexual Orientation Not on file documented as of this encounter Plan of Treatment Not on file documented as of this encounter Visit Diagnoses Not on filedocumented in this encounter Care Teams Wet Mixer Relationship Specialty Start Date End Date Found, No Pcp, [address] [place] [address] PCP - General 07/05/23 documented as of this encounter
--- OUTSIDE RECORDS SUMMARY | 2023-07-25 20:48 | XMS_ITS | Encounter Summary ---
Author Name Unknown Organization [facility] Address [address] [address] Care Team Providers Care Certified Surgical Technologist Name Role Phone Found, No Pcp Primary Care Provider Unavailab le Encounter Details Date Type Department Care Team (Latest Contact Info) Description 07/06/1994 [place] [address] [address] [facility] [place] [address] Social History Tobacco Use Types Packs/Day Years Used Date Smoking Tobacco: Never Assessed Sex and Gender Information Value Date Recorded Sex Assigned at Not on file Gender Identity Not on file Sexual Orientation Not on file documented as of this encounter Plan of Treatment Not on file documented as of this encounter Visit Diagnoses Not on filedocumented in this encounter Care Teams Certified Surgical Technologist Relationship Specialty Start Date End Date Found, No PcpMD [address] [place] [address] PCP - General 07/05/23 documented as of this encounter
--- OUTSIDE RECORDS SUMMARY | 2023-07-25 20:48 | XMS_ITS | Encounter Summary ---
Author Name Unknown Organization [facility] Address [address], [place] [address] Care Team Providers Care Metal Bonder Name Role Phone Found, No Pcp Primary Care Provider Unavailab le Encounter Details Date Type Department Care Team (Latest Contact Info) Description 05/09/1996 Orders Only Inés Stauffer Social History Tobacco [...] on filedocumented in this encounter Care Teams Metal Bonder Relationship Specialty Start Date End Date Found, No Pcp, [address] [place] [address] PCP - General 07/05/23 documented as of this encounter
--- OUTSIDE RECORDS SUMMARY | 2023-07-25 20:48 | XMS_ITS | Encounter Summary ---
Author Name Unknown Organization [facility] Address [address] [address] Care Team Providers Care Bevel Mill Operator Name Role Phone Found, No Pcp Primary Care Provider Unavailab le Encounter Details Date Type Department Care Team (Latest Contact Info) Description 07/13/1994 Orders Only Adele Garsia Social History Tobacco Use Types Packs/Day Years Used Date Smoking Tobacco: Never Assessed Sex and Gender Information Value Date Recorded Sex Assigned at Not on file Gender Identity Not on file Sexual Orientation Not on file documented as of this encounter Plan of Treatment Not on file documented as of this encounter Visit Diagnoses Not on filedocumented in this encounter Care Teams Bevel Mill Operator Relationship Specialty Start Date End Date Found, No Pcp, [address] [place] [address] PCP - General 07/05/23 documented as of this encounter
--- OUTSIDE RECORDS SUMMARY | 2023-07-25 20:48 | XMS_ITS | Encounter Summary ---
Author Name Unknown Organization [facility] Address [address] [address] Care Team Providers Care Instructional Specialist Name Role Phone Found, No Pcp Primary Care Provider Unavailab le Encounter Details Date Type Department Care Team (Latest Contact Info) Description 07/16/1994 Orders Only Adele Garsia Social History Tobacco [...] on filedocumented in this encounter Care Teams Instructional Specialist Relationship Specialty Start Date End Date Found, No Pcp, [address] [place] [address] PCP - General 07/05/23 documented as of this encounter
--- OUTSIDE RECORDS SUMMARY | 2023-07-25 20:48 | XMS_ITS | Encounter Summary ---
Author Name Unknown Organization [facility] Address [address], [place] [address] Care Team Providers Care Refinery Operator Helper Name Role Phone Found, No Pcp Primary Care Provider Unavailab le Encounter Details Date Type Department Care Team (Latest Contact Info) Description 02/18/1996 Orders Only Emilio Dewey MD Social History [...] on filedocumented in this encounter Care Teams Refinery Operator Helper Relationship Specialty Start Date End Date Found, No Pcp, [address] [place] [address] PCP - General 07/05/23 documented as of this encounter
--- OUTSIDE RECORDS SUMMARY | 2023-07-25 20:48 | XMS_ITS | Encounter Summary ---
Author Name Unknown Organization [facility] Address [address], [place] [address] Care Team Providers Care Practice Support Specialist Name Role Phone Found, No Pcp Primary Care Provider Unavailab le Encounter Details Date Type Department Care Team (Latest Contact Info) Description 07/08/1994 Orders Only Emilio Dewey MD Social History [...] on filedocumented in this encounter Care Teams Practice Support Specialist Relationship Specialty Start Date End Date Found, No Pcp, [address] [place] [address] PCP - General 07/05/23 documented as of this encounter
--- OUTSIDE RECORDS SUMMARY | 2023-07-25 20:48 | XMS_ITS | Clinical Summary ---
Author Name Unknown Organization [facility] Address [place], [place] [address] Care Team Providers Care Tree Trimming Supervisor Name Role Phone Joann Brown DO Primary Care Provider Allergies No known active allergies Medications Medication Sig Dispensed Refills Start Date End Date Status miscellaneous medical supply miscIndications:Foot pain, bilateral,Heel pain, bilateral,Diabetes mellitus type 2, uncontrolled, without complications As directed. Orthotic foot inserts - 1 pair 1 Each 9 Active CPAPIndications:Obstruct chiquita sleep apnea CPAP machine for home use at pressure: 5-15 cmw , Heated humidifier x 1 q 5 yr, Humidifier chamber x 1 q 6 mo, nasal mask x1 q 3mos, with cushion x 2 q mo, standard tubing x 1 q 3 mo, Headgear x 1 q 6 mo, Filters: Disposable x 2 q mo non-disposable filters x1 q 6mo, Length of Need: 99 months, Frequency of use: Daily 1 Device 11 0 Active lancets (Accu-Chek Softclix Lancets)Indications:Type 2 diabetes mellitus without complication, without long-term current use of insulin (HC) TEST DAILY 100 Each 3 1 Active blood-glucose meterIndications:Uncontr olled type 2 diabetes mellitus with hyperglycemia (HC) Dispense meter, test strips, lancets covered by pt ins. E11.9 NIDDM type II - Test 1 time/day 1 Each 1 Active blood sugar diagnostic (FreeStyle Test) stripIndications:Uncontr olled type 2 diabetes mellitus with hyperglycemia (HC) Dispense item covered by pt ins. E11.9 NIDDM type II - Test 1 time/day 100 Each 3 1 Active nystatin powder (Nystop) powderIndications:Yeast infection of the skin Apply topically to affected area(s) one time if needed (Topical yeast infection). 15 g 3 3 Active clobetasol cream 0.05% (TEMOVATE) 0.05 % creamIndications:Dermati tis Use daily as needed 30 g 1 3 Active nitrofurantoin macrocrystals/monohydrat e (Macrobid) 100 mg capsuleIndications:Recur rent UTI Take 1 Capsule (100 mg) by mouth every 12 hours. Use dose before intercourse and dose after intercourse 12 hours after first dose 60 Capsule 3 Active metoprolol tartrate (LOPRESSOR) 100 mg tabletIndications:Essent ial hypertension Take 1 Tablet (100 mg) by mouth two times daily. 180 Tablet 3 3 Active levothyroxine (SYNTHROID) 125 mcg tabletIndications:Hypoth yroidism, unspecified type Take 1 Tablet (125 mcg) by mouth before breakfast. 90 Tablet 3 3 Active pantoprazole (PROTONIX) 40 mg delayed-release tabletIndications:Gastro esophageal reflux disease, unspecified whether esophagitis present Take 1 Tablet (40 mg) by mouth once daily. 90 Tablet 3 3 Active amLODIPine (NORVASC) 5 mg tabletIndications:Essent ial hypertension Take 1 Tablet (5 mg) by mouth once daily. 90 Tablet 3 3 Active metFORMIN (GLUCOPHAGE XR) 750 mg Extended-Release tabletIndications:Type 2 diabetes mellitus without complication, without long-term current use of insulin (HC) Take 1 Tablet (750 mg) by mouth once daily. 90 Tablet 3 3 Active simvastatin (ZOCOR) 10 mg tabletIndications:Pure hypercholesterolemia Take 1 Tablet (10 mg) by mouth at bedtime. 90 Tablet 3 3 Active semaglutide (Rybelsus) 14 mg tabletIndications:Type 2 diabetes mellitus without complication, without long-term current use of insulin (HC) Take 14 mg by mouth once daily before a meal. 30 Tablet 6 4 Active LORazepam (ATIVAN) 1 mg tabletIndications:Insomn ia, idiopathic Take 1 Tablet (1 mg) by mouth at bedtime if needed for Anxiety or Sleep. 15 Tablet 4 Active celecoxib (CELEBREX) 200 mg capsuleIndications:Osteo arthritis, unspecified osteoarthritis type, unspecified site Take 1 Capsule (200 mg) by mouth once daily with a meal. 90 Capsule 4 Active lisinopriL (PRINIVIL; ZESTRIL) 40 mg tabletIndications:Essent ial hypertension Take 1 Tablet (40 mg) by mouth once daily. 30 Tablet 4 Active celecoxib (CELEBREX) 200 mg capsuleIndications:Osteo arthritis, unspecified osteoarthritis type, unspecified site Take 1 Capsule (200 mg) by mouth once daily with a meal. 90 Capsule 3 3 024 Discontin ued(Reord er (E-cancel not sent)) LORazepam (ATIVAN) 1 mg tabletIndications:Insomn ia, idiopathic Take 1 Tablet (1 mg) by mouth at bedtime if needed for Anxiety or Sleep. 15 Tablet 3 024 Discontin ued(Reord er (E-cancel not sent)) lisinopriL (PRINIVIL; ZESTRIL) 40 mg tabletIndications:Essent ial hypertension Take 1 Tablet (40 mg) by mouth once daily. 90 Tablet 3 3 024 Discontin ued(Reord er (E-cancel not sent)) lisinopriL (PRINIVIL; ZESTRIL) 40 mg tabletIndications:Essent ial hypertension Take 1 Tablet (40 mg) by mouth once daily. 30 Tablet 4 024 Discontin ued(Reord er (E-cancel not sent)) Active Problems Problem Noted Date Diagnosed Date Diabetes mellitus type 2, un controlled, without complications 10/12/2018 Obesity 02/21/2013 YOKO 11/23/2012 AHI-38 11/29/2012 Restless legs syndrome (RLS) 11/14/2007 Sleep Apnea 11/2007 RDI-6.2, AHI-4.2 11/14/2007 Unspecified essential hypertension 02/14/2007 Unspecified hypothyroidism 02/14/2007 Pure hypercholesterolemia 02/14/2007 Urinary tract infection, site not specified 01/21 Overview: abx proph after intercourse Resolved Problems Problem Noted Date Diagnosed Date Resolved Date Routine adult health maintenance 01/01/2016 04/15/2020 Overview: Colonoscopy 12/2015 normal repeat in 10 years Encounters Date Type Department Care Team Description 07/12/2023 Refill [facility] [address] [place] [address] Shaqra, Joann Arianna, DO Refill Request (Lisinopril, Celebrex) 07/02/2023 Refill [facility] [address] [place] [address] Shaqra, Joann Arianna, DO Refill Request (LISINOPRIL) 06/30/2023 Refill [facility] [address] [place] [address] Shaqra, Joann Arianna, DO Refill Request (LORazepam (ATIVAN) 1 mg tablet) from Last 3 Months Immunizations Name Administration Dates Next Due COVID-19 Vaccine Spikevax (M oderna 50mcg/0.5mL) 12YO+ 3329-3902 Formula PF 01/22/2023 COVID-19 vaccine (Pfizer-Bio NTech 30mcg/0.3mL) 12YO+ BIVALENT PF, MDV 05/07/2022 COVID-19 vaccine (Pfizer-Bio NTech 30mcg/0.3mL) 12YO+ BRUCE-SUCROSE PF, MDV 07/10/2021 COVID-19 vaccine (Pfizer-Bio NTech 30mcg/0.3mL) PF, MDV 12/16/2020,04/02/2020,03/13/2020 Hepatitis B (Adult) 07/13/2022 Influenza A (H1N1), Live Intranasal 01/17/2014 Influenza RIV4 (Age 18+ Year s) PRESERV FREE 12/21/2018 Influenza, IIV3 (Age 6-35 mos) 12/27/2019 Influenza, IIV3 (Age >=3 years) 12/31/19 18,12/03/2015,01/03/2013,2007 Influenza, IIV4 01/22/2023,12/17/2021 Influenza, IIV4 (=>6mos) MDV 12/18/2020,12/27/19 20 Influenza, Intradermal Inactivated 01/03/2015 Pneumococcal Conj 20-valent (Prevnar 20) 07/13/2022 Pneumococcal Poly,23-Valent (Pneumovax) 03/30/2019 Td (Age >=7 Years) 12/20/1997 Tdap 07/13/2022,12/23/2011,02/14/2007 Zoster (Shingrix-RZV, recombinant) 05/19/2021, Family History Medical History Relation Name Comments No Known Problems Brother Hypertension Father Lung cancer Father Atrial fibrillation Sister Relation Name Status Comments Brother Father Mother Alive Sister Social History Tobacco Use Types Packs/Day Years Used Date Smoking Tobacco: Never Smokeless Tobacco: Never Tobacco Cessation:Counseling Given: Yes Alcohol Use Standard Drinks/Week Comments Not Currently 0 (1 standard drink = 0.6 oz pur e alcohol) a couple times a year PHQ-2 Answer Date Recorded PHQ-2 TOTAL SCORE 0 05/19/2021 Social Connections Answer Date Recorded Frequency of Communication with Friends and Fami ly 0 11/09/2022 Financial Resource Strain Answer Date R ecorded Difficulty of Paying Living Expenses 3 11/09/2022 Difficulty of Paying Living Expenses Not on file 11/09/2022 Food Insecurity Answer Date Recorded Worried About Running Out of Food in the Last Ye ar 1 11/09/2022 Transportation Needs Answer Date Record ed Lack of Transportation (Medical) 1 11/09/2022 Housing Stability Answer Date Recorded Unable to Pay for Housing in the Last Year 1 11/09/2022 Sex and Gender Information Value Date Recorded Sex Assigned at Not on file Gender Identity Not on file Sexual Orientation Not on file Obstetrics History Para Term AB IAB SAB Ectopic Multiple Livin g Live Births 2 2 2 0 0 0 0 0 2 Date Outcome GA Total Labor Labor/2nd/3rd Weight Sex Delivery Anes PTL Arianna A1 A5 Name Cl in Term Term Last Filed Vital Signs Vital Sign Reading Time Taken Comments Blood Pressure 136/82 02/10/2023 3:42 PM [facility] Pulse 99 02/10/2023 3:03 PM [facility] Temperature 36.7 ??C (98.1 ??F) 09/27/2021 12:06 PM C DT Respiratory Rate 20 10/29/2021 2:30 PM CDT Oxygen Saturation 98% 02/10/2023 3:03 PM [facility] Inhaled Oxygen Concentration - - Weight 153 kg (337 lb 6.4 oz) 02/10/2023 3:03 PM [facility] Height 172.7 cm (5' 8) 02/10/2023 3:03 PM [facility] Body Mass Index 51.3 02/10/2023 3:03 PM [facility] Plan of Treatment Upcoming Encounters Date Type Department Care Team (Late st Contact Info) Description 09/01/2023 3:25 PM CDT Office Visit [facility] [address] [place] [address] Joann Brown Arianna, DO [address] [place], [place] [id number] Health Maintenance Due Date Last Done Comments HIV for age 15-65 1979 Mammogram for age 45-75 10/03/2021 10/04/19 21, 10/03/2019, 06/03/2018, Additional history exists Depression screening for age 12+ 05/19/2022 05/19/2021, 04/15/2020, 07/24/2019, Additional history exists Hepatitis B series for Diabe sherif (2 of 3 - 19+ 3-dose series) 08/10/2022 07/13/2022 Influenza for age 50-64 11/21/2023 01/23/20 23, 12/17/2021, 12/18/2020, Additional history exists BMI (ht and wt on same day) for age 18+ 02/11/2024 02/10/2023, 07/13/2022, 05/19/2021, Additional history exists Pap test for age 21-65 04/15/2025 , 04/15/2020, 03/18/2017, Additional history exists Colonoscopy through age 75 12/29/2025 12/30/2015, Lipids for age 45-75 07/14/2027 07/13/2022, 02/17/2021, 04/15/2020, Additional history exists Tetanus booster 07/13/2032 07/13/2022, 05/2011, 02/14/2007, Additional history exists Hepatitis C screening for ag e 18-79 Completed 03/30/2019 Zoster (shingles) series for age 50+ Completed 05/19/2021, 03/30/2019 Pneumococcal series for age 6-64 Completed 07/14/19, 03/30/2019 Tdap Completed 07/13/2022, 05/2011, 02/14/2007 COVID-19 vaccine series Completed 01/23/20, 05/07/2022, 07/10/2021, Additional history exists Procedures Procedure Name Priority Date/Time Associated Diagnosis Comments LC LIPID PANEL AND CHOL/HDL RATIO Routine 07/13/2022 3:05 PM CDT Pure hypercholesterolemia SCAN-MAMMOGRAPHY REPORT 10/03/2020 12:00 AM CDT GOOD HUMOR VENDOR THIN PREP PAP SCREEN IMAGED Routine 04/15/2020 8:45 AM [facility] Pap smear for cervical cancer screening ANTI HCV Routine 03/30/2019 12:27 PM [facility] Need for hepatitis C screening test SCAN-COLONOSCOPY 12/30/2015 12:0 0 AM CDT from Last 3 Months or Most Recently Relevant to Health Maintenance Results * (ABNORMAL) LC LIPID PANEL AND CHOL/HDL RATIO (07/13/2022 3:05 PM CDT) Cholesterol, Total 207(H) 100 - 199 mg/dL 07/15/2022 11:09 AM CDT [facility] Triglycerides 160(H) 0 - 149 mg/dL 07/15/2022 11:09 AM CDT [facility] HDL Cholesterol 73 >39 mg/dL 11:09 AM CDT [facility] VLDL Cholesterol Alex 27 5 - 40 mg/dL 07/15/2022 11:09 AM T [facility] ([facility]) LDL Chol Calc ([facility]) 107(H) 0 - 99 mg/dL 07/15/2022 11:09 AM CDT [facility] ([facility]) T. Chol/HDL Ratio 2.8 0.0 - 4.4 ratio 07/15/2022 11:09 AM T [facility] ([facility]) Comment: ?T. Chol/HDL Ratio ?Men ??Women ?1/2 Avg.Risk ??3.4 ?3.3 ?Avg.Risk ??5.0 ?4.4 ? 2X Avg.Risk ??9.6 ?7.1 ? 3X Avg.Risk 23.4 ?? 11.0 Blood BLOOD SPECIMEN / Unknown Venipuncture / Unknown 07/13/2022 3:05 PM CDT 07/13/2022 3:07 PM CDT Narrative [facility] ([facility]) - 07/15/2022 11:09 AM CDT Performed at: ??01 - [facility] [address] [place], [place] ??[id number] Enrollment Processor: Ugo Marshall MD, Phone: ??[phone] Joann Brown DO SEND OUTS [facility] ([facility]) [facility] [place] [address], * SCAN-MAMMOGRAPHY REPORT (10/03/2020 12:00 AM CDT) Anatomical Region Laterality Modality Other Scanner OTHER * GOOD HUMOR VENDOR THIN PREP PAP SCREEN IMAGED [[id number]] (04/15/2020 8:45 AM [facility]) Case Report Gynecologic Cytology Report ? Case: [id number] ? Authorizing Provider: ??Sherrie Doyle MD ? Collected: ? 04/15/2020 0845 ? Ordering Location: ? [facility] ?? Received: ?04/15/2020 1020 ? Clinic ? First Screen: ?Alexandra, Giselle ? Specimen: ?GOOD HUMOR VENDOR ThinPrep Vial Screening, Cervical ? 04/23/2020 2:58 PM [facility] INTERPRETATION/ RESULT NEGATIVE FOR INTRAEPITHELIAL LESION OR MALIGNANCY (NIL) (none) 04/23/2020 2:58 PM [facility] IMEN ADEQUACY Satisfactory for evaluation Endocervical component present 04/23/2020 2:58 PM [facility] HPV REQUEST HPV and PAP 04/23/2020 2:58 PM [facility] Date of LMP uncertain 04/23/2020 2:58 PM [facility] Last Pap Date 03/18/17 04/23/2020 2:58 PM [facility] Last Pap Result NIL 2:58 PM [facility] Abnormal Pap or Delaplaine Bx in last 5 years No 04/23/2020 2:58 PM [facility] Menstrual Status Postmenopausal 04/23/2020 2:58 PM [facility] Delaplaine Bx Done Today No 04/23/2020 2:58 PM [facility] Additional Information None given 04/23/2020 2:58 PM [facility] Comment: Cytology is screened at [facility] - [address], [place] [address] and [facility] - [address], [place] [address] and [facility] - [address], [place] [address] Interpreted at [facility] - [address], [place] [address] Automated Review Successful 04/23/2020 2:58 PM [facility] Comment:Specimen processed s uccessfully by automated custom car builder device, ThinPrep Imaging System, [employer] ANCILLARY TESTING GOOD HUMOR VENDOR HPV Ordered, Please see separate report 04/23/2020 2:58 PM [facility] Note The pap test is a screening technique, not a diagnostic procedure. It is used primarily to screen for squamous cancers and precursor lesions. Published studies have shown that it is subject to both false negative and false positive results. The pap test should not be used as the sole means to diagnose or exclude pre-malignant and malignant lesions. 04/23/2020 2:58 PM [facility] Other (Cervical) Non-Blood / Unknown 04/15/2020 8:45 AM [facility] 04/15/2020 10:20 AM [facility] Sherrie Doyle MD PATHOLOGY/CYTOLOGY Performing Organization Address [facility]/ZIP Co de Phone Number [facility] [address] [place] [address], [place] * ANTI HCV (03/30/2019 12:27 PM [facility]) HEPATITIS C ANTIBODY Non-React chiquita Non-React chiquita 03/30/2019 7:09 PM [facility] [employer] [facility] Comment:Antibodies to HCV no t detected; does not exclude the possibility of exposure to HCV. Blood BLOOD SPECIMEN / Unknown Butterfly / Unknown 03/30/2019 12:27 PM [facility] 03/30/2019 12:27 PM [facility] Sherrie Doyle MD SEND OUTS [facility] [address] [place] [address], [place] * SCAN-COLONOSCOPY (12/30/2015 12:00 AM CDT) Scanner OTHER from Last 3 Months or Most Recently Relevant to Health Maintenance Care Teams Tree Trimming Supervisor Relationship Specialty Start Date End Date Joann Brown DO [address] [place] [address] PCP - General Family Practice 07/13/22
--- OUTSIDE RECORDS SUMMARY | 2023-07-25 20:48 | XMS_ITS | Encounter Summary ---
Author Name Unknown Organization [facility] Address [address], [place] [address] Care Team Providers Care Geospatial Applications Developer Name Role Phone Found, No Pcp Primary Care Provider Unavailab le Encounter Details Date Type Department Care Team (Latest Contact Info) Description 06/06/1996 Orders Only Inés Stauffer Social History Tobacco [...] on filedocumented in this encounter Care Teams Geospatial Applications Developer Relationship Specialty Start Date End Date Found, No Pcp, [address] [place] [address] PCP - General 07/05/23 documented as of this encounter
--- OUTSIDE RECORDS SUMMARY | 2023-07-25 20:48 | XMS_ITS | Encounter Summary ---
Author Name Unknown Organization [facility] Address [address], [place] [address] Care Team Providers Care Dye Operator Name Role Phone Found, No Pcp Primary Care Provider Unavailab le Encounter Details Date Type Department Care Team (Latest Contact Info) Description 06/08/1996 Orders Only Inés Stauffer Social History Tobacco [...] on filedocumented in this encounter Care Teams Dye Operator Relationship Specialty Start Date End Date Found, No Pcp, [address] [place] [address] PCP - General 07/05/23 documented as of this encounter
--- OUTSIDE RECORDS SUMMARY | 2023-07-25 20:48 | XMS_ITS | Encounter Summary ---
Author Name Unknown Organization [facility] Address [address], [place] [address] Care Team Providers Care Admissions Officer Name Role Phone Found, No Pcp Primary Care Provider Unavailab le Encounter Details Date Type Department Care Team (Latest Contact Info) Description 01/15/1996 Orders Only Jarod Cooper MD [address] [place] [address] [id number] Social History Tobacco Use Types Packs/Day Years Used Date Smoking Tobacco: Never Assessed Sex and Gender Information Value Date Recorded Sex Assigned at Not on file Gender Identity Not on file Sexual Orientation Not on file documented as of this encounter Plan of Treatment Not on file documented as of this encounter Visit Diagnoses Not on filedocumented in this encounter Care Teams Admissions Officer Relationship Specialty Start Date End Date Found, No PcpMD [address] [place] [address] PCP - General 07/05/23 documented as of this encounter
--- OUTSIDE RECORDS SUMMARY | 2023-07-25 20:48 | XMS_ITS | Encounter Summary ---
Author Name Unknown Organization [facility] Address [address] [address] Care Team Providers Care Asphalt Mixing Machine Operator Name Role Phone Found, No Pcp Primary Care Provider Unavailab le Encounter Details Date Type Department Care Team (Latest Contact Info) Description 04/27/1994 Orders Only Emilio Dewey MD Social History [...] on filedocumented in this encounter Care Teams Asphalt Mixing Machine Operator Relationship Specialty Start Date End Date Found, No Pcp, [address] [place] [address] PCP - General 07/05/23 documented as of this encounter
--- OUTSIDE RECORDS SUMMARY | 2023-07-25 20:48 | XMS_ITS | Encounter Summary ---
Author Name Unknown Organization [facility] Address [address] [address] Care Team Providers Care Community Health Nurse Staff Name Role Phone Found, No Pcp Primary Care Provider Unavailab le Encounter Details Date Type Department Care Team (Latest Contact Info) Description 06/02/1994 Orders Only Jarod Cooper MD [address] [place] [address] [id number] Social History Tobacco Use Types Packs/Day Years Used Date Smoking Tobacco: Never Assessed Sex and Gender Information Value Date Recorded Sex Assigned at Not on file Gender Identity Not on file Sexual Orientation Not on file documented as of this encounter Plan of Treatment Not on file documented as of this encounter Visit Diagnoses Not on filedocumented in this encounter Care Teams Community Health Nurse Staff Relationship Specialty Start Date End Date Found, No PcpMD [address] [place] [address] PCP - General 07/05/23 documented as of this encounter
--- OUTSIDE RECORDS SUMMARY | 2023-07-25 20:48 | XMS_ITS | Encounter Summary ---
Author Name Unknown Organization [facility] Address [address], [place] [address] Care Team Providers Care Special Education Resource Teacher Name Role Phone Found, No Pcp Primary Care Provider Unavailab le Encounter Details Date Type Department Care Team (Latest Contact Info) Description 05/27/1994 Orders Only Emilio Dewey MD Social History [...] on filedocumented in this encounter Care Teams Special Education Resource Teacher Relationship Specialty Start Date End Date Found, No Pcp, [address] [place] [address] PCP - General 07/05/23 documented as of this encounter
--- OUTSIDE RECORDS SUMMARY | 2023-07-25 20:48 | XMS_ITS | Encounter Summary ---
Author Name Unknown Organization [facility] Address [address] [place] [address] Care Team Providers Care Hospital Administrator Name Role Phone Found, No Pcp Primary Care Provider Unavailab le Encounter Details Date Type Department Care Team (Latest Contact Info) Description 09/20/1995 Orders Only Kyree Coronado MD [address] [place], [place] [id number] Social History Tobacco Use Types Packs/Day Years Used Date Smoking Tobacco: Never Assessed Sex and Gender Information Value Date Recorded Sex Assigned at Not on file Gender Identity Not on file Sexual Orientation Not on file documented as of this encounter Plan of Treatment Not on file documented as of this encounter Visit Diagnoses Not on filedocumented in this encounter Care Teams Hospital Administrator Relationship Specialty Start Date End Date Found, No Pcp, [address] [place] [address] PCP - General 07/05/23 documented as of this encounter
--- OUTSIDE RECORDS SUMMARY | 2023-07-25 20:48 | XMS_ITS | Encounter Summary ---
Author Name Unknown Organization [facility] Address [address], [place] [address] Care Team Providers Care Bottle Filler Name Role Phone Found, No Pcp Primary Care Provider Unavailab le Encounter Details Date Type Department Care Team (Latest Contact Info) Description 01/04/1996 Orders Only Inés Stauffer Social History Tobacco [...] on filedocumented in this encounter Care Teams Bottle Filler Relationship Specialty Start Date End Date Found, No Pcp, [address] [place] [address] PCP - General 07/05/23 documented as of this encounter
--- OUTSIDE RECORDS SUMMARY | 2023-07-25 20:48 | XMS_ITS | Clinical Summary ---
Author Name Unknown Organization [facility] Address [address] [place] [address]. [place] [address] Care Team Providers Care Cellophane Worker Name Role Phone Mp Brown DO Primary Care Provider [phone] Allergies No known active allergies Medications Medication [...] 01/01/2023 12:27 PM CDT Plan of Treatment Health Maintenance Due Date Last Done Comments ADVANCE CARE PLANNING 1964 ANNUAL REVIEW OF HM ORDERS 1964 CT COLONOGRAPHY 1964 FIT 1964 FLEX SIG 1964 GLUCOSE 1964 MAMMO SCREENING 1964 sDNA (Cologuard) 1964 COLONOSCOPY 1974 COLORECTAL CANCER SCREENING 1974 HIV SCREENING 1979 HEPATITIS C SCREENING 1982 PAP 1985 LIPID 2004 HEPATITIS B IMMUNIZATION (2 of 3 - 19+ 3-dose series) 08/10/2022 07/13/2022 COVID-19 Vaccine ( season) 2022 05/07/2022, 07/10/2021, 12/16/2020, Additional history exists PHQ-2 (once per calendar year) 2023 YEARLY PREVENTIVE VISIT 07/14/2023 07/14/19 23, 05/19/2021, 04/15/2020 INFLUENZA VACCINE (Season Ended) 2023 12/17/2021, 12/18/2020, 12/27/2019, Additional history exists DTAP/TDAP/TD IMMUNIZATION (5 - Td or Tdap) 07/13/2032 07/13/2022, 01/02/2012, 12/23/2011, Additional history exists ZOSTER IMMUNIZATION Completed 05/19/2021, 0 Pneumococcal Vaccine: Pediatrics (0 to 5 Years) and At-Risk Patients (6 to 64 Years) Aged Out 07/13/2022, 03/30/2019 No longer eligibl e based on patient's age to complete this topic HPV IMMUNIZATION Aged Out No longer e ligible based on patient's age to complete this topic IPV IMMUNIZATION Aged Out No longer e ligible based on patient's age to complete this topic MENINGITIS IMMUNIZATION Aged Out No l onger eligible based on patient's age to complete this topic RSV MONOCLONAL ANTIBODY Aged Out No l onger eligible based on patient's age to complete this topic Care Teams Cellophane Worker Relationship Specialty Start Date End Date Mp Brown DO [address] [place] [address] PCP - General 01/01/23
--- OUTSIDE RECORDS SUMMARY | 2023-07-25 20:48 | XMS_ITS | Encounter Summary ---
Author Name Unknown Organization [facility] Address [address] [address] Care Team Providers Care Production Consultant Name Role Phone Found, No Pcp Primary Care Provider Unavailab le Encounter Details Date Type Department Care Team (Latest Contact Info) Description 07/02/1995 Orders Only Be Bl[facility] [address] [facility], [address] Social History Tobacco Use Types Packs/Day Years Used Date Smoking Tobacco: Never Assessed Sex and Gender Information Value Date Recorded Sex Assigned at Not on file Gender Identity Not on file Sexual Orientation Not on file documented as of this encounter Plan of Treatment Not on file documented as of this encounter Visit Diagnoses Not on filedocumented in this encounter Care Teams Production Consultant Relationship Specialty Start Date End Date Found, No Pcp, [address] [place] [address] PCP - General 07/05/23 documented as of this encounter
--- OUTSIDE RECORDS SUMMARY | 2023-07-25 20:48 | XMS_ITS | Encounter Summary ---
Author Name Unknown Organization [facility] Address [address], [place] [address] Care Team Providers Care Button Puncher Name Role Phone Found, No Pcp Primary Care Provider Unavailab le Encounter Details Date Type Department Care Team (Latest Contact Info) Description 06/11/1994 Orders Only Inés Stauffer Social History Tobacco [...] on filedocumented in this encounter Care Teams Button Puncher Relationship Specialty Start Date End Date Found, No Pcp, [address] [place] [address] PCP - General 07/05/23 documented as of this encounter
--- OUTSIDE RECORDS SUMMARY | 2023-07-25 20:48 | XMS_ITS | Encounter Summary ---
Author Name Unknown Organization [facility] Address [address], [place] [address] Care Team Providers Care Molder Pipe Covering Name Role Phone Found, No Pcp Primary Care Provider Unavailab le Encounter Details Date Type Department Care Team (Latest Contact Info) Description 08/23/1995 Orders Only Emilio Dewey MD Social History [...] on filedocumented in this encounter Care Teams Molder Pipe Covering Relationship Specialty Start Date End Date Found, No Pcp, [address] [place] [address] PCP - General 07/05/23 documented as of this encounter
== END 2023-07-25 21:33 | disposition home or self-care (01) ==
PROVIDERS: Emergency Provider Family Medicine; PCP Family Medicine
DX: M25.561 Pain in right knee (principal)
CPT/HCPCS: 99283; 99284

== ENCOUNTER 2023-08-08 20:36 | Emergency (ER) | payer OTHER, SELFPAY ==
[2023-08-08] VITALS (39 sets, daily range): BP systolic 79–186; BP diastolic 55–152; PULSE 85–176; RESP 12–24; TEMP 36.7; O2SAT 93–100; BMI 48.4
--- NOTE | 2023-08-08 21:02 | ED.GENADULT ---
HPI - General Adult General Chief complaint: Arrhythmia/Palpitations Stated complaint: fast heartbeat Time Seen by Provider: 08/08/23 20:52 History of Present Illness HPI narrative: josiah ambulatory on arrival, c/o very fast HR that started about 8 minutes before arrival , reports she was just sitting watching TV when in started , states occasianal flutter feeling in the past but no previous instances of rapid HR like this, denies chest pain, reports some SOB 58-year-old woman presenting to the emergency department with concern very rapid heart rate. She had been at rest when this began. She feels some fluttering sometimes. Never had an episode like this. Denies history of SVT or atrial fibrillation. She is feeling short of breath. Minimally anxious. Not having chest pain. Little lightheaded. She is quite clear that this began shortly before arrival. Underlying history of diabetes and hypertension. Last seen by me in this department with severe knee pain and anticipating knee replacement. She has been attempting to lose some weight in anticipation of this and has been following a ketogenic diet. Related Data Home Medications ?Medication ?Instructions ?Recorded ?Confirmed amlodipine 5 mg tablet 5 mg PO 12/15/21 08/02/23 blood sugar diagnostic (Contour #10 ea 12/15/21 08/02/23 Next Test Strips) blood-glucose meter (Contour Next #1 ea 12/15/21 08/02/23 Meter) celecoxib 200 mg capsule 200 mg PO QDAY 12/15/21 08/02/23 lancets (Microlet Lancet) #100 ea 12/15/21 08/02/23 levothyroxine 125 mcg tablet 125 mcg PO QDAY 12/15/21 08/02/23 lisinopril 40 mg tablet 40 mg PO QDAY 12/15/21 08/02/23 metoprolol tartrate 100 mg tablet 100 mg PO BID 12/15/21 08/02/23 pantoprazole 40 mg tablet,delayed ea PO 12/15/21 08/02/23 release semaglutide 14 mg tablet (Rybelsus) ea PO 12/15/21 08/02/23 simvastatin 10 mg tablet 10 mg PO QDAY 12/15/21 08/02/23 metformin 750 mg tablet,extended 750 mg PO DAILY 11/03/22 08/02/23 release 24 hr Previous Rx's ?Medication ?Instructions ?Recorded clobetasol 0.05 % topical cream 1 applic topical BID PRN itching 11/22/21 #15 grams apixaban 5 mg tablet 5 mg PO BID #60 tabs 08/09/23 Allergies Allergy/AdvReac Type Severity Reaction Status Date / Time No Known Drug Allergies Allergy Verified 08/02/23 15:28 Review of Systems Status of ROS: Reports: 6 or more systems reviewed and unremarkable except as noted in History and below PFSH PFSH Surgical History Hx of cholecystectomy ?Z90.49 - Acquired absence of other specified parts of digestive tract (ICD-10) H/O section ?Z98.891 - History of uterine scar from previous surgery (ICD-10) History of arthroscopy of right knee (11/07/08) ?Z98.890 - Other specified postprocedural states (ICD-10) History of hysteroscopy (01/26/11) ?Z98.890 - Other specified postprocedural states (ICD-10) History of arthroscopy of left shoulder (10/12/12) ?Z98.890 - Other specified postprocedural states (ICD-10) History of arthroscopy of left knee (05/17/14) ?Z98.890 - Other specified postprocedural states (ICD-10) History of arthroscopy of right shoulder (02/21/15) ?Z98.890 - Other specified postprocedural states (ICD-10) Social History Smoking Status: Never smoker Non-prescribed substance use: denies use Exam Narrative: Exam Narrative: Flushed. Appears anxious and uncomfortable. Cranial nerves 2-12 intact. Mildly labored in her breathing. Oxygenating 98%. Lungs appear to be clear. Skin is warm and dry. She is well-perfused. Heart is quite tachycardic. Here with appropriately attentive spouse. Const: Vital Signs, click to edit/add: Vital Signs - 24 hr 08/08/23 21:00 08/08/23 21:03 08/08/23 21:08 Temperature 98.1 F Pulse Rate 160 H 138 H Pulse Rate [Pulse Oximeter] 176 H Respiratory Rate 24 20 Blood Pressure 110/61 Blood Pressure [Ri ght Upper Arm] 186/152 H Pulse Oximetry 98 99 100 Oxygen Delivery Me thod Room Air Oxygen Flow Rate 08/08/23 21:15 08/08/23 21:16 08/08/23 21:17 Temperature Pulse Rate 124 H 98 125 H Pulse Rate [Pulse Oximeter] Respiratory Rate 18 Blood Pressure 127/64 Blood Pressure [Ri ght Upper Arm] Pulse Oximetry 95 97 97 Oxygen Delivery Me thod Oxygen Flow Rate 08/08/23 21:30 08/08/23 21:32 08/08/23 21:47 Temperature Pulse Rate 113 H 117 H 120 H Pulse Rate [Pulse Oximeter] Respiratory Rate 18 Blood Pressure 147/86 H Blood Pressure [Ri ght Upper Arm] Pulse Oximetry 96 97 96 Oxygen Delivery Me thod Oxygen Flow Rate 08/08/23 21:58 08/08/23 22:00 08/08/23 22:02 Temperature Pulse Rate 108 H 133 H 124 H Pulse Rate [Pulse Oximeter] Respiratory Rate 16 16 Blood Pressure 121/77 120/103 H Blood Pressure [Ri ght Upper Arm] Pulse Oximetry 94 94 94 Oxygen Delivery Me thod Oxygen Flow Rate 08/08/23 22:03 08/08/23 22:15 08/08/23 22:17 Temperature Pulse Rate 143 H 116 H 156 H Pulse Rate [Pulse Oximeter] Respiratory Rate 16 Blood Pressure 86/68 L Blood Pressure [Ri ght Upper Arm] Pulse Oximetry 94 95 93 Oxygen Delivery Me thod Oxygen Flow Rate 08/08/23 22:19 08/08/23 22:20 08/08/23 22:21 Temperature Pulse Rate 156 H 145 H Pulse Rate [Pulse Oximeter] Respiratory Rate Blood Pressure 79/62 L 115/77 Blood Pressure [Ri ght Upper Arm] Pulse Oximetry 96 96 Oxygen Delivery Me thod Oxygen Flow Rate 08/08/23 22:22 08/08/23 22:30 08/08/23 22:32 Temperature Pulse Rate 127 H 156 H Pulse Rate [Pulse Oximeter] Respiratory Rate 16 Blood Pressure 115/77 116/97 H Blood Pressure [Ri ght Upper Arm] Pulse Oximetry 94 95 Oxygen Delivery Me thod Oxygen Flow Rate 08/08/23 22:45 08/08/23 22:46 08/08/23 22:47 Temperature Pulse Rate 128 H 119 H 147 H Pulse Rate [Pulse Oximeter] Respiratory Rate Blood Pressure 101/83 Blood Pressure [Ri ght Upper Arm] Pulse Oximetry 96 97 95 Oxygen Delivery Me thod Oxygen Flow Rate 08/08/23 23:00 08/08/23 23:01 08/08/23 23:15 Temperature Pulse Rate 132 H 114 H 136 H Pulse Rate [Pulse Oximeter] Respiratory Rate 16 16 13 Blood Pressure 101/83 Blood Pressure [Ri ght Upper Arm] Pulse Oximetry 95 97 96 Oxygen Delivery Me thod Nasal Cannula Nasal Cannula Oxygen Flow Rate 4 08/08/23 23:17 08/08/23 23:27 08/08/23 23:28 Temperature Pulse Rate 149 H 90 88 Pulse Rate [Pulse Oximeter] Respiratory Rate 20 18 15 Blood Pressure 107/78 113/55 L Blood Pressure [Ri ght Upper Arm] Pulse Oximetry 97 98 97 Oxygen Delivery Me thod Nasal Cannula Nasal Cannula Oxygen Flow Rate 4 1 08/08/23 23:30 08/08/23 23:32 08/08/23 23:33 Temperature Pulse Rate 89 88 86 Pulse Rate [Pulse Oximeter] Respiratory Rate 13 13 13 Blood Pressure 114/59 L Blood Pressure [Ri ght Upper Arm] Pulse Oximetry 96 97 96 Oxygen Delivery Me thod Nasal Cannula Nasal Cannula Oxygen Flow Rate 1 1 08/08/23 23:37 08/08/23 23:41 08/08/23 23:45 Temperature Pulse Rate 85 86 85 Pulse Rate [Pulse Oximeter] Respiratory Rate 12 16 17 Blood Pressure 112/65 120/67 Blood Pressure [Ri ght Upper Arm] Pulse Oximetry 97 97 97 Oxygen Delivery Me thod Oxygen Flow Rate 08/08/23 23:46 08/08/23 23:51 08/08/23 23:57 Temperature Pulse Rate 87 95 Pulse Rate [Pulse Oximeter] Respiratory Rate 13 16 20 Blood Pressure 117/59 L 122/73 116/69 Blood Pressure [Ri ght Upper Arm] Pulse Oximetry 97 97 Oxygen Delivery Me thod Oxygen Flow Rate 08/09/23 00:00 08/09/23 00:02 08/09/23 00:02 Temperature Pulse Rate 88 88 88 Pulse Rate [Pulse Oximeter] Respiratory Rate 21 Blood Pressure 107/58 L 107/58 L Blood Pressure [Ri ght Upper Arm] Pulse Oximetry 96 94 94 Oxygen Delivery Me thod Oxygen Flow Rate 08/09/23 00:02 08/09/23 00:07 08/09/23 00:08 Temperature Pulse Rate 88 87 83 Pulse Rate [Pulse Oximeter] Respiratory Rate Blood Pressure 107/58 L 93/53 L Blood Pressure [Ri ght Upper Arm] Pulse Oximetry 94 94 94 Oxygen Delivery Me thod Oxygen Flow Rate 08/09/23 00:11 08/09/23 00:15 08/09/23 00:16 Temperature Pulse Rate 86 83 85 Pulse Rate [Pulse Oximeter] Respiratory Rate Blood Pressure 107/64 90/65 Blood Pressure [Ri ght Upper Arm] Pulse Oximetry 94 96 94 Oxygen Delivery Me thod Oxygen Flow Rate 08/09/23 00:21 08/09/23 00:31 08/09/23 00:37 Temperature Pulse Rate 87 93 83 Pulse Rate [Pulse Oximeter] Respiratory Rate Blood Pressure 97/79 133/52 L Blood Pressure [Ri ght Upper Arm] Pulse Oximetry 95 97 96 Oxygen Delivery Me thod Oxygen Flow Rate 08/09/23 00:42 08/09/23 00:45 08/09/23 00:47 Temperature Pulse Rate 81 86 83 Pulse Rate [Pulse Oximeter] Respiratory Rate Blood Pressure 139/80 127/114 H Blood Pressure [Ri ght Upper Arm] Pulse Oximetry 96 98 86 L Oxygen Delivery Me thod Oxygen Flow Rate 08/09/23 00:52 08/09/23 00:57 08/09/23 01:00 Temperature Pulse Rate 83 83 87 Pulse Rate [Pulse Oximeter] Respiratory Rate Blood Pressure 124/83 130/69 Blood Pressure [Ri ght Upper Arm] Pulse Oximetry 97 96 96 Oxygen Delivery Me thod Oxygen Flow Rate 08/09/23 01:02 Temperature Pulse Rate Pulse Rate [Pulse Oximeter] Respiratory Rate Blood Pressure 127/58 L Blood Pressure [Ri ght Upper Arm] Pulse Oximetry Oxygen Delivery Me thod Oxygen Flow Rate Documenting provider has reviewed patient's vital signs: yes Course Vital Signs Vital signs: Initial Vital Signs Temperature 98.1 F 08/08/23 21:00 Temperature Source Temporal Artery Scan 08/08/23 21:00 Pulse Rate 176 H 08/08/23 21:00 Respiratory Rate 24 08/08/23 21:00 Blood Pressure 186/152 H 08/08/23 21:00 Blood Pressure Mean 163 H 08/08/23 21:00 Blood Pressure Position Supine 08/08/23 21:00 Pulse Oximetry 98 08/08/23 21:00 Oxygen Delivery Method Room Air 08/08/23 21:00 Vital Signs Temperature 98.1 F 08/08/23 21:00 Pulse Rate 176 H 08/08/23 21:00 Respiratory Rate 24 08/08/23 21:00 Blood Pressure 186/152 H 08/08/23 21:00 Pulse Oximetry 98 08/08/23 21:00 Oxygen Delivery Method Room Air 08/08/23 21:00 Temperature 98.1 F 08/08/23 21:00 Pulse Rate 87 08/09/23 01:00 Respiratory Rate 21 08/09/23 00:00 Blood Pressure 127/58 L 08/09/23 01:02 Pulse Oximetry 96 08/09/23 01:00 Oxygen Delivery Method Nasal Cannula 08/08/23 23:32 Oxygen Flow Rate 1 08/08/23 23:32 Medications Administered Medications: Discontinued Medications Generic Name Dose Route Start Last Admin Trade Name Freq PRN Reason Stop Dose Admin Diltiazem HCl 20 mg 08/08/23 21:02 08/08/23 21:05 Diltiazem 5 Mg/Ml Inj IVP 08/08/23 21:03 20 mg ONCE ONE Administration Potassium Chloride 10 meq in 100 mls @ 100 mls/hr 08/08/23 22:16 08/08/23 23:57 Potassium Chloride IVPB 08/08/23 23:15 Infused ONCE ONE Infusion Potassium Bicarbonate 50 meq 08/08/23 23:52 08/08/23 23:59 Potassium Bicarb 25 Meq Effervescent Tab PO 08/08/23 23:53 50 meq ONCE ONE Administration Propofol 100 mg 08/08/23 23:30 08/08/23 23:19 Propofol 10 Mg/Ml Inj IVP 08/08/23 23:31 100 mg ONCE ONE Administration Medical Decision Making MDM Narrative Medical decision making narrative: AFib with RVR. Initial EKG reviewed by me do show a rate of 168 and atrial fibrillation. Considering the rate I might have initially thought this to be supraventricular tachycardia. Consistent with what I am seeing on monitor as well and physical exam. Unknown trigger at this time. First event. Is not anticoagulated. Is symptomatic and should be safe for cardioversion if necessary but will give some IV fluids 1st, check electrolytes, hemoglobin and give a dosing of diltiazem. Potassium a little low at 3.1. Given replacement over time in the ER. On reassessment still rather tachycardic. Symptoms and tachycardia unresolved with IV fluids and diltiazem. Informed consent obtained and discussed with Dr. Cabrera who assists with sedation and airway as necessary. Given 100 mg of propofol IV. Cardioverted at 200 joules. Converted to normal sinus. Symptoms markedly improved. Appears more relaxed, relieved. Considering anticoagulation; chads Vasc 2 would score 3 points. Discussed with cardiology for follow-up. Will initiate Eliquis. First dose here in the emergency department See patient discharge plan for further discussion Lab Data Lab results reviewed: Yes I reviewed the patient's lab results Labs: Lab Results 08/08/23 Range/Units 21:25 WBC 7.33 (4.50-11.00) K/uL RBC 5.13 (4.00-5.20) m/uL Hgb 13.3 (12.0-16.0) gm/dL Hct 42.3 (33.0-51.0) % MCV 83 (80-100) fL MCH 26 (26-34) pg MCHC 31 L (32-36) gm/dL RDW Coeff of Aziza 14.0 (11.5-15.5) % Plt Count 274 (140-440) K/uL Neut % (Auto) 57.0 (42.0-72.0) % Lymph % (Auto) 32.3 (20-44) % Sierra % (Auto) 8.0 (0.0-11.0) % Eos % (Auto) 2.5 (0.0-7.0) % Baso % (Auto) 0.1 (0.0-3.0) % Neut # (Auto) 4.17 (1.7-7.0) K/uL Lymph # (Auto) 2.37 (0.90-2.90) K/uL Sierra # (Auto) 0.60 (0.00-0.90) K/UL Eos # (Auto) 0.18 (0.00-0.50) K/uL Baso # (Auto) 0.01 (0.00-0.30) K/uL Abs Immat Gran (auto) 0.01 (0.00-0.30) K/uL Imm/Tot Granulo (auto) 0.1 % Sodium 139 (135-149) mmol/L Potassium 3.1 L (3.6-5.1) mmol/L Chloride 108 (96-114) mmol/L Carbon Dioxide 19 L (20-32) mmol/L Anion Gap 12 (7-15) mEq/L BUN 16 (7-30) mg/dL Creatinine 0.8 (0.5-1.5) mg/dL Estimated Creat Clear 79.13 Estimated GFR 85 ml/min Glucose 124 H (60-115) mg/dL Calcium 9.3 (8.4-10.6) mg/dL Magnesium 1.8 (1.5-2.6) mg/dL C-Reactive Protein < 0.5 L (0.5-1.0) mg/dL TSH 2.300 (0.270-4.20) uIU/mL ECG Data Attestation: I personally reviewed and interpreted this ECG as follows: (Atrial fibrillation in RVR at a rate of 168. EKG # 2 following cardioversion shows normal sinus) Critical Care Time Critical Care Time Critical Care Time: Yes Attestation: The patient required my highest level preparedness to intervene emergently and I personally spent this critical care time directly and personally managing the patient. This critical care time included: Obtaining a history; Examining the patient; Pulse oximetry; Ordering and reviewing of studies; Arranging urgent treatment with development of a management plan; Evaluation of patients response to treatment; Frequent reassessment discussions with other providers. This critical care time was performed to assess and manage the high probability of imminent life-threatening deterioration that could result in multiorgan failure. It was exclusive of separate billable procedures and treating other patients and teaching time. Total Critical Care Time in Minutes: 60 Discharge Plan Discharge Clinical Impression: Atrial fibrillation with RVR, Hypokalemia Patient Disposition: Home w/ Parent or Adult Condition: Improved Additional Instructions: Stay well-hydrated particularly well doing this type of diet. Please follow-up with your doctor as planned. If your heart rate runs away from you again and it will not settle down in an hour or 2 or if you are feeling lightheaded or with shortness of breath or experiencing chest pain, please return to the emergency department. We have probably replaced your potassium to low normal level with dosing you got here. I would recheck level on follow-up visit. Initiating apixaban --prescription sent to pharmacy Prescriptions: New apixaban 5 mg tablet 5 mg PO BID Qty: 60 0RF No Action metformin 750 mg tablet extended release 24 hr 750 mg PO DAILY Rybelsus 14 mg tablet PO Patient Comments: TAKE 1 TABLET BY MOUTH EVERY DAY BEFORE A MEAL amlodipine 5 mg tablet 5 mg PO metoprolol tartrate 100 mg tablet 100 mg PO BID lisinopril 40 mg tablet 40 mg PO QDAY levothyroxine 125 mcg tablet 125 mcg PO QDAY pantoprazole 40 mg tablet,delayed release (DR/EC) PO simvastatin 10 mg tablet 10 mg PO QDAY celecoxib 200 mg capsule 200 mg PO QDAY (DME) lancets [Microlet Lancet] Misc See Rx Instructions .ROUTE .MEDSUPPLY Qty: 100 Patient Comments: TEST DAILY Rx Instructions: As directed (DME) Contour Next Test Strips Strip See Rx Instructions .ROUTE .MEDSUPPLY Qty: 10 Patient Comments: TEST DAILY Rx Instructions: As directed (DME) blood-glucose meter [Contour Next Meter] Misc See Rx Instructions .ROUTE .MEDSUPPLY Qty: 1 Patient Comments: USE DIRECTED Rx Instructions: As directed clobetasol 0.05 % cream 1 applic topical BID PRN (Reason: itching) Qty: 15 2RF Follow Up/Referrals: Joann Brown DO [Primary Care Provider] - Stand Alone Forms: [facility] Info Instructions Procedures Additional Procedures Procedure name: Electrical cardioversion Pre procedure diagnosis: Symptomatic atrial fibrillation with rapid ventricular response Post procedure diagnosis: Symptomatic atrial fibrillation with rapid ventricular response Written consent by: patient Site marking: not applicable Verification/time out: correct patient and correct procedure Estimated blood loss (if any): none Specimen sent: No Conclusion: patient tolerated procedure Additional comments: Sedated with 100 mg of propofol. Converted with 200 joules. No airway or rhythm complications. Tolerated procedure well.
[2023-08-08] MEDS: dilTIAZem 5 MG/ML inj 20 MG IVP (21:05)
[2023-08-08 21:33] LABS: Basophils Absolute Auto 0.01 K/uL (0.00-0.30); Basophils Percent Auto 0.1 % (0.0-3.0); Eosinophils Absolute Auto 0.18 K/uL (0.00-0.50); Eosinophils Percent Auto 2.5 % (0.0-7.0); Hematocrit 42.3 % (33.0-51.0); Hemoglobin* 13.3 gm/dL (12.0-16.0); Immature Granulocytes Abs Auto 0.01 K/uL (0.00-0.30); Immature Granulocytes Pct Auto 0.1 %; Lymphocytes Absolute Auto 2.37 K/uL (0.90-2.90); Lymphocytes Percent Auto 32.3 % (20-44); Mean Corpuscular HGB Conc 31 gm/dL (32-36); Mean Corpuscular Hemoglobin 26 pg (26-34); Mean Corpuscular Volume 83 fL (80-100); Neutrophils Absolute Auto 4.17 K/uL (1.7-7.0); Platelet Count* 274 K/uL (140-440); Red Blood Count 5.13 m/uL (4.00-5.20); White Blood Count* 7.33 K/uL (4.50-11.00)
[2023-08-08 21:34] LABS: Slide Review Reflex No
--- OUTSIDE RECORDS SUMMARY | 2023-08-08 21:36 | XMS_ITS | Encounter Summary ---
Author Name Unknown Organization [facility] Address [address] [address] Care Team Providers Care Supervisor [employer] Name Role Phone Found, No Pcp Primary [...] on filedocumented in this encounter Care Teams Supervisor [employer] Treatment Plant Relationship Specialty Start Date End Date Found, No Pcp, [address] [place] [address] PCP - General 07/05/23 documented as of this encounter
--- OUTSIDE RECORDS SUMMARY | 2023-08-08 21:36 | XMS_ITS | Encounter Summary ---
Author Name Unknown Organization [facility] Address [address] [place] [address] Care Team Providers Care Diploma Dental Assistant Name Role Phone Inés Lozada MD Primary Care Provider [phone] Reason for Visit * Reason Comments Prior Authorization Request Gel injectio n Encounter Details Date Type Department Care Team (Late st Contact Info) Description 05/14/2023 Telephone [facility] [address] [place] [address] Corona Hansen MD [address] [facility] [address] [place] [address] Prior Authorization Request (Gel injection) [...] NATANAEL was approved and provided scheduling information. E WINDER * Naeem Barahona - 05/26/2023 8:54 AM CST Prior Authorization Approval PA has been approved Date Entered: 05/26/23 8:48 AM JCODE: [id number] Medication: Durolane Dosing/Frequency:60mg once into right knee DX: M17.11 Provider: Tyrone Location: [facility]: /TID: [id number] Insurance: Clarissa Contact/Submission: Clarissa Auth #: [id number] Auth Dates: 05/19/23 - 11/26/23 E WINDER * Paola Fajardo CMA - 05/19/2023 3:50 PM CST Routing to PA dept.since the notes are in per provider. E WINDER * Paola Fajardo CMA - 05/18/2023 5:42 PM CST Routing to provider and OA E WINDER * Naeem Barahona - 05/18/2023 12:23 PM CST Hello, We have been unable to start this PA, as Dr. Hansen's office note is not available. Please let us know when he has dictated it and it is in the chart. Thank you E WINDER * Paola Fajardo CMA - 05/14/2023 10:52 [...] Euflexxa Ordering Provider Corona Hansen Requesting Location [facility] E WINDER documented in this encounter Plan of Treatment Not on file documented as of this encounter Visit Diagnoses Not on filedocumented in this encounter Care Teams Diploma Dental Assistant Relationship Specialty Start Date End Date Inés Lozada MD [address] [place] [address] PCP - General 02/27/00 06/30/23 documented as of this encounter
--- OUTSIDE RECORDS SUMMARY | 2023-08-08 21:36 | XMS_ITS | Encounter Summary ---
Author Name Unknown Organization [facility] Address [address], [place] [address] Care Team Providers Care Deputy Sheriff Bailiff Name Role Phone Inés Lozada MD Primary Care Provider [phone] Reason for Visit * Reason Comments CONSULT Pt states she fell p december and has had pain since. Pt treating pain with Tylenol, ib profen, ice, elevation Pt states she will get zingers of pain that shoot down the middle of the knee. Encounter Details Date Type Department Care Team (Latest Contact Info) Description 05/14/2023 10:20 AM AIR VALVE REPAIRER Office Visit [facility] [address] [place] [address] Corona Hansen MD [address] [facility] [address] [place] [address] Primary osteoarthritis of right knee [...] 156.5 kg (345 lb) 05/14/2023 10:00 AM AIR VALVE REPAIRER Height 175.3 cm (5' 9) 05/14/2023 10:00 AM AIR VALVE REPAIRER Body Mass Index 50.95 05/14/2023 10:00 AM AIR VALVE REPAIRER documented in this encounter Progress Notes * [...] shoulder pain. She was subsequently seen in [facility] on 01/31/2023. At that time they had [...] activity for the knee. She is tried [id number] arthritis medications for the knee pain. All [...] face to face consultation with the patient. VALVE REPAIRER documented in this encounter Plan of Treatment Not on file documented as of this encounter Visit Diagnoses Diagnosis Primary osteoarthritis of right knee- Primary Primary localized osteoarthrosis, lower leg documented in this encounter Care Teams Deputy Sheriff Bailiff Relationship Specialty Start Date End Date Inés Lozada MD [address] [place] [address] PCP - General 02/27/00 06/30/23 documented as of this encounter
--- OUTSIDE RECORDS SUMMARY | 2023-08-08 21:36 | XMS_ITS | Encounter Summary ---
Author Name Unknown Organization [facility] Address [address] [place] [address] Care Team Providers Care Account Installer Name Role Phone Found, No Pcp Primary Care Provider Unavailab le Encounter Details Date Type Department Care Team (Latest Contact Info) Description 06/12/1999 Orders Only Inés Lozada MD [address] [place] [address] Social History Tobacco Use Types Packs/Day Years Used Date Smoking Tobacco: Never Assessed Sex and Gender Information Value Date Recorded Sex Assigned at Not on file Gender Identity Not on file Sexual Orientation Not on file documented as of this encounter Plan of Treatment Not on file documented as of this encounter Visit Diagnoses Not on filedocumented in this encounter Care Teams Account Installer Relationship Specialty Start Date End Date Found, No PcpMD [address] [place] [address] PCP - General 07/05/23 documented as of this encounter
--- OUTSIDE RECORDS SUMMARY | 2023-08-08 21:36 | XMS_ITS | Encounter Summary ---
Author Name Unknown Organization [facility] Address [address] [place] [address] Care Team Providers Care Senior Portfolio Manager Name Role Phone Inés Lozada MD Primary Care Provider [phone] Reason for Referral * (Routine) - New Request Specialty Diagnoses / Procedures Referred By Contac t Referred To Contact Diagnoses Primary osteoarthritis of right knee Procedures DUROLANE (per 1 MG)- quantity =60 Corona Hansen MD [address] [facility] [address] [place] [address] Referral ID Status Reason Start Date Expiration Date V isits Requested Visits Authorized [id number] New Request 07/13/2023 10/11/2024 1 1 Reason for Visit * Reason Comments Follow-up Right knee durolane gel injection Encounter Details Date Type Department Care Team (Latest Contact Info) Description 06/04/2023 9:20 AM CDT Office Visit [facility] [address] [place] [address] Corona Hansen MD [address] [facility] [address] [place] [address] Primary osteoarthritis of right knee [...] the injection or develop a fever,please call [phone] Thank you for choosing [facility] for your health care visit today. Corona Hansen MD Orthopedic Surgeon Lower Extremity [facility] Advanced Imaging Scheduling: To schedule advanced imaging including MRI's, CT Scans, Ultrasounds and Fluoroscopic guided injections at a [facility] location please call [phone]. Medication Requests: Prescriptions are not filled on weekends or on weekdays after 3:00 PM. For all medication refills: Request a refill using [employer] or contact your pharmacy. [facility] Workers' Compensation [address] [place] [address] (Phone) Email: [email or web address] What is Know Your Cost? Know Your Cost is a service for patients and patient/members to call and receive personalized cost information and estimates across our care group. The phone number is (COST) Wednesday - Wednesday 8 AM to 5 PM Release of Information: Radiology/Imaging Health Information Management [address] [facility] [address] [place] [address] [place] [address] (Phone) [phone] (Phone) [employer] documented in this encounter Progress Notes * [...] leg documented in this encounter Care Teams Senior Portfolio Manager Relationship Specialty Start Date End Date Inés Lozada MD [address] [place] [address] PCP - General 02/27/00 06/30/23 documented as of this encounter
--- OUTSIDE RECORDS SUMMARY | 2023-08-08 21:36 | XMS_ITS | Encounter Summary ---
Author Name Unknown Organization [facility] Address [address] [place] [address] Care Team Providers Care Stage Set Designer Name Role Phone Inés Lozada MD Primary Care Provider Reason for Visit * Reason Comments Refill Encounter Details Date Type Department Care Team (Late st Contact Info) Description 03/30/2023 Refill [facility] [address] [place] [address] Topher Smith MD [address] [facility] [address] [place] [id number] Refill Social History Tobacco Use Types Packs/Day Years Used Date Smoking Tobacco: Never Assessed Sex and Gender Information Value Date Recorded Sex Assigned at Not on file Gender Identity Not on file Sexual Orientation Not on file documented as of this encounter Nursing Notes * Carmina Fajardo RN - 03/30/2023 4:36 PM CST Med refill was cancelled. LER TECHNICIAN * Rian Mora - 03/30/2023 4:28 PM CST Patient called stating they do not need the medication refill. LER TECHNICIAN * Carmina Fajardo RN - 03/30/2023 8:22 AM CST Refill request came in for Diclofenac from the pt's pharmacy. Cutter Hand l/m on an unidentified vm [place] [facility] [place] Given the mainline phone number and our hours of operation. Need to know if this is a refill that the pt. Is requesting, or if this is an automated refill request coming from the pharmacy. LER TECHNICIAN documented in this encounter Plan of Treatment Not on file documented as of this encounter Visit Diagnoses Diagnosis Primary osteoarthritis of right knee- Primary Primary localized osteoarthrosis, lower leg Rotator cuff syndrome of right shoulder Disorders of bursae and tendons in shoulder region, unspecified documented in this encounter Care Teams Stage Set Designer Relationship Specialty Start Date End Date Inés Lozada MD [address] [place] [address] PCP - General 02/27/00 06/30/23 documented as of this encounter
--- OUTSIDE RECORDS SUMMARY | 2023-08-08 21:36 | XMS_ITS | Clinical Summary ---
Author Name Unknown Organization [facility] Address [address] [place] [address] Care Team Providers Care Area Operations Director Name Role Phone Found, No Pcp MD Primary Care Provider Unavailab le Source Comments You are receiving this document as you are listed as the primary care provider,follow-up provider, or the patient has been referred to you for consultation.This is in compliance with the Medicare and[facility] Medical Cent[facility] EHR Incentive Program,which states Providers who transition their patient to another setting of careor provider of care or refers their patient to another provider of care shouldprovide summary care record for each transition of care or referral. [facility] Allergies No known active allergies Medications Medication [...] Description 06/04/2023 9:20 AM CDT Office Visit [facility] [address] [place] [phone] Corona Hansen MD Primary osteoarthritis of right knee (Primary Dx) 05/14/2023 10:20 AM RAILWAY SIGNAL TECHNICIAN Office Visit [facility] [address] [place] [phone] Corona Hansen MD Primary osteoarthritis of right knee (Primary Dx) 05/14/2023 Telephone [facility] [address] [place] [phone] Corona Hansen MD Prior Authorization Request (Gel [...] 156.5 kg (345 lb) 05/14/2023 10:00 AM RAILWAY SIGNAL TECHNICIAN Height 175.3 cm (5' 9) 05/14/2023 10:00 AM RAILWAY SIGNAL TECHNICIAN Body Mass Index 50.95 05/14/2023 10:00 AM RAILWAY SIGNAL TECHNICIAN Plan of Treatment Health Maintenance Due Date [...] A1C (EXTERNAL RESULT) Routine 02/10/2023 2:51 PM RAILWAY SIGNAL TECHNICIAN CHOLESTEROL (TOTAL) Routine 01/16/1998 1 1:49 AM RAILWAY SIGNAL TECHNICIAN from Last 3 Months or Most Recently Relevant to Health Maintenance Results * (ABNORMAL) CHOLESTEROL (TOTAL) (01/16/1998 11:49 AM RAILWAY SIGNAL TECHNICIAN) Cholesterol 238(H) <200 mg/dl [facility] Cholesterol Result should not be interpreted without the patient's history of cardiovascular risk factors. [facility] 01/16/1998 11:4 9 AM RAILWAY SIGNAL TECHNICIAN 01/16/1998 11:50 AM RAILWAY SIGNAL TECHNICIAN Emilio Dewey MD LAB[facility] [address] [address] from Last 3 Months or Most Recently Relevant to Health Maintenance Care Teams Area Operations Director Relationship Specialty Start Date End Date Found, No Pcp, [address] [place] [address] PCP - General 07/05/23
--- OUTSIDE RECORDS SUMMARY | 2023-08-08 21:37 | XMS_ITS | Encounter Summary ---
Author Name Unknown Organization [facility] Address [address] [address] Care Team Providers Care Transit Survey Worker Name Role Phone Found, No Pcp Primary [...] on filedocumented in this encounter Care Teams Transit Survey Worker Relationship Specialty Start Date End Date Found, No Pcp, [address] [place] [address] PCP - General 07/05/23 documented as of this encounter
--- OUTSIDE RECORDS SUMMARY | 2023-08-08 21:37 | XMS_ITS | Encounter Summary ---
Author Name Unknown Organization [facility] Address [address], [place] [address] Care Team Providers Care Supplier Manager Name Role Phone Found, No Pcp Primary [...] on filedocumented in this encounter Care Teams Supplier Manager Relationship Specialty Start Date End Date Found, No Pcp, [address] [place] [address] PCP - General 07/05/23 documented as of this encounter
--- OUTSIDE RECORDS SUMMARY | 2023-08-08 21:37 | XMS_ITS | Encounter Summary ---
Author Name Unknown Organization [facility] Address [address], [place] [address] Care Team Providers Care Waste Baler Name Role Phone Found, No Pcp Primary [...] on filedocumented in this encounter Care Teams Waste Baler Relationship Specialty Start Date End Date Found, No Pcp, [address] [place] [address] PCP - General 07/05/23 documented as of this encounter
--- OUTSIDE RECORDS SUMMARY | 2023-08-08 21:37 | XMS_ITS | Encounter Summary ---
Author Name Unknown Organization [facility] Address [address], [place] [address] Care Team Providers Care Youth Leader Name Role Phone Found, No Pcp Primary [...] on filedocumented in this encounter Care Teams Youth Leader Relationship Specialty Start Date End Date Found, No Pcp, [address] [place] [address] PCP - General 07/05/23 documented as of this encounter
--- OUTSIDE RECORDS SUMMARY | 2023-08-08 21:37 | XMS_ITS | Encounter Summary ---
Author Name Unknown Organization [facility] Address [address], [place] [address] Care Team Providers Care Body Wirer Name Role Phone Found, No Pcp Primary [...] on filedocumented in this encounter Care Teams Body Wirer Relationship Specialty Start Date End Date Found, No Pcp, [address] [place] [address] PCP - General 07/05/23 documented as of this encounter
--- OUTSIDE RECORDS SUMMARY | 2023-08-08 21:37 | XMS_ITS | Encounter Summary ---
Author Name Unknown Organization [facility] Address [address], [place] [address] Care Team Providers Care Solid Waste Management Engineer Name Role Phone Found, No Pcp [...] on filedocumented in this encounter Care Teams Solid Waste Management Engineer Relationship Specialty Start Date End Date Found, No Pcp, [address] [place] [address] PCP - General 07/05/23 documented as of this encounter
--- OUTSIDE RECORDS SUMMARY | 2023-08-08 21:37 | XMS_ITS | Referral Summary ---
Author Name Unknown Organization [facility] Address [address] [place] [address]. [place] [address] Care Team Providers Care Betting Agency Counter Clerk Name Role Phone Mp Brown Primary Care Provider [phone] Allergies No known active allergies Medications Medication [...] of Treatment Not on file Care Teams Betting Agency Counter Clerk Relationship Specialty Start Date End Date Mp Brown DO [address] [place] [address] PCP - General 01/01/23
--- OUTSIDE RECORDS SUMMARY | 2023-08-08 21:37 | XMS_ITS | Encounter Summary ---
Author Name Unknown Organization [facility] Address [address] [address] Care Team Providers Care Nailhead Setter Name Role Phone Found, No Pcp Primary [...] on filedocumented in this encounter Care Teams Nailhead Setter Relationship Specialty Start Date End Date Found, No PcpMD [address] [place] [address] PCP - General 07/05/23 documented as of this encounter
--- OUTSIDE RECORDS SUMMARY | 2023-08-08 21:37 | XMS_ITS | Encounter Summary ---
Author Name Unknown Organization [facility] Address [address] [address] Care Team Providers Care Relay Adjuster Name Role Phone Found, No Pcp Primary [...] on filedocumented in this encounter Care Teams Relay Adjuster Relationship Specialty Start Date End Date Found, No Pcp, [address] [place] [address] PCP - General 07/05/23 documented as of this encounter
--- OUTSIDE RECORDS SUMMARY | 2023-08-08 21:37 | XMS_ITS | Encounter Summary ---
Author Name Unknown Organization [facility] Address [address] [address] Care Team Providers Care Spooling Operator Name Role Phone Found, No Pcp [...] on filedocumented in this encounter Care Teams Spooling Operator Relationship Specialty Start Date End Date Found, No Pcp, [address] [place] [address] PCP - General 07/05/23 documented as of this encounter
--- OUTSIDE RECORDS SUMMARY | 2023-08-08 21:37 | XMS_ITS | Encounter Summary ---
Author Name Unknown Organization [facility] Address [address], [place] [address] Care Team Providers Care Carburetor Repairer Name Role Phone Found, No Pcp Primary [...] on filedocumented in this encounter Care Teams Carburetor Repairer Relationship Specialty Start Date End Date Found, No Pcp, [address] [place] [address] PCP - General 07/05/23 documented as of this encounter
--- OUTSIDE RECORDS SUMMARY | 2023-08-08 21:37 | XMS_ITS | Encounter Summary ---
Author Name Unknown Organization [facility] Address [address], [place] [address] Care Team Providers Care Staff Home Therapy Rn Name Role Phone Found, No Pcp Primary [...] on filedocumented in this encounter Care Teams Staff Home Therapy Rn Relationship Specialty Start Date End Date Found, No Pcp, [address] [place] [address] PCP - General 07/05/23 documented as of this encounter
--- OUTSIDE RECORDS SUMMARY | 2023-08-08 21:37 | XMS_ITS | Encounter Summary ---
Author Name Unknown Organization [facility] Address [address] [address] Care Team Providers Care After School Driver Name Role Phone Found, No Pcp Primary [...] on filedocumented in this encounter Care Teams After School Driver Relationship Specialty Start Date End Date Found, No Pcp, [address] [place] [address] PCP - General 07/05/23 documented as of this encounter
--- OUTSIDE RECORDS SUMMARY | 2023-08-08 21:37 | XMS_ITS | Encounter Summary ---
Author Name Unknown Organization [facility] Address [address] [address] Care Team Providers Care Concrete Craftsman Name Role Phone Found, No Pcp Primary Care Provider Unavailab le Encounter Details Date Type Department Care Team (Late st Contact Info) Description 06/05/1995 Orders Only [facility] Scott Pedroza MD [address] [place] [address] [address] Social History Tobacco Use Types Packs/Day Years Used Date Smoking Tobacco: Never Assessed Sex and Gender Information Value Date Recorded Sex Assigned at Not on file Gender Identity Not on file Sexual Orientation Not on file documented as of this encounter Plan of Treatment Not on file documented as of this encounter Visit Diagnoses Not on filedocumented in this encounter Care Teams Concrete Craftsman Relationship Specialty Start Date End Date Found, No Pcp, [address] [place] [address] PCP - General 07/05/23 documented as of this encounter
--- OUTSIDE RECORDS SUMMARY | 2023-08-08 21:37 | XMS_ITS | Clinical Summary ---
Author Name Unknown Organization [facility] Address [address] [place] [address]. [place] [address] Care Team Providers Care Gerentological Physiotherapist Name Role Phone Mp Brown DO Primary Care Provider [phone] Allergies No known active allergies Medications Medication [...] age to complete this topic Care Teams Gerentological Physiotherapist Relationship Specialty Start Date End Date Mp Brown DO [address] [place] [address] PCP - General 01/01/23
--- OUTSIDE RECORDS SUMMARY | 2023-08-08 21:37 | XMS_ITS | Encounter Summary ---
Author Name Unknown Organization [facility] Address [address], [place] [address] Care Team Providers Care Hand Shoe Cutter Name Role Phone Found, No Pcp Primary [...] on filedocumented in this encounter Care Teams Hand Shoe Cutter Relationship Specialty Start Date End Date Found, No Pcp, [address] [place] [address] PCP - General 07/05/23 documented as of this encounter
--- OUTSIDE RECORDS SUMMARY | 2023-08-08 21:37 | XMS_ITS | Encounter Summary ---
Author Name Unknown Organization [facility] Address [address], [place] [address] Care Team Providers Care Citrix Engineer Name Role Phone Found, No Pcp [...] on filedocumented in this encounter Care Teams Citrix Engineer Relationship Specialty Start Date End Date Found, No Pcp, [address] [place] [address] PCP - General 07/05/23 documented as of this encounter
--- OUTSIDE RECORDS SUMMARY | 2023-08-08 21:37 | XMS_ITS | Encounter Summary ---
Author Name Unknown Organization [facility] Address [address] [address] Care Team Providers Care Stores Laborer Name Role Phone Found, No Pcp Primary Care Provider Unavailab le Encounter Details Date Type Department Care Team (Latest Contact Info) Description 08/12/1996 Orders Only Joshua Váz[place] [address] [place] [address] Social History Tobacco Use Types [...] on filedocumented in this encounter Care Teams Stores Laborer Relationship Specialty Start Date End Date Found, No Pcp, [address] [place] [address] PCP - General 07/05/23 documented as of this encounter
--- OUTSIDE RECORDS SUMMARY | 2023-08-08 21:37 | XMS_ITS | Encounter Summary ---
Author Name Unknown Organization [facility] Address [address] [address] Care Team Providers Care Phone Banker Name Role Phone Found, No Pcp Primary [...] on filedocumented in this encounter Care Teams Phone Banker Relationship Specialty Start Date End Date Found, No Pcp, [address] [place] [address] PCP - General 07/05/23 documented as of this encounter
--- OUTSIDE RECORDS SUMMARY | 2023-08-08 21:37 | XMS_ITS | Encounter Summary ---
Author Name Unknown Organization [facility] Address [address], [place] [address] Care Team Providers Care Quiller Tender Name Role Phone Found, No Pcp Primary Care Provider Unavailab le Encounter Details Date Type Department Care Team (Latest Contact Info) Description 02/18/1996 Orders Only Emliio Dewey MD Social History Tobacco Use Types [...] on filedocumented in this encounter Care Teams Quiller Tender Relationship Specialty Start Date End Date Found, No Pcp, [address] [place] [address] PCP - General 07/05/23 documented as of this encounter
--- OUTSIDE RECORDS SUMMARY | 2023-08-08 21:37 | XMS_ITS | Encounter Summary ---
Author Name Unknown Organization [facility] Address [address] [address] Care Team Providers Care Commercial Assistant Name Role Phone Found, No Pcp Primary Care Provider Unavailab le Encounter Details Date Type Department Care Team (Latest Contact Info) Description 07/02/1994 [place] [address] [place] [address] Social History Tobacco Use Types [...] on filedocumented in this encounter Care Teams Commercial Assistant Relationship Specialty Start Date End Date Found, No Pcp, [address] [facility] [place] [address] PCP - General 07/05/23 documented as of this encounter
--- OUTSIDE RECORDS SUMMARY | 2023-08-08 21:37 | XMS_ITS | Encounter Summary ---
Author Name Unknown Organization [facility] Address [address] [place] [address] Care Team Providers Care Entry Level Chemist Name Role Phone Found, No Pcp Primary Care Provider Unavailab le Encounter Details Date Type Department Care Team (Latest Contact Info) Description 08/17/1996 Orders Only Paulina Villegas MD [address] [facility] [address] [place], [place] [address] Social History Tobacco Use Types Packs/Day Years Used Date Smoking Tobacco: Never Assessed Sex and Gender Information Value Date Recorded Sex Assigned at Not on file Gender Identity Not on file Sexual Orientation Not on file documented as of this encounter Plan of Treatment Not on file documented as of this encounter Visit Diagnoses Not on filedocumented in this encounter Care Teams Entry Level Chemist Relationship Specialty Start Date End Date Found, No PcpMD [address] [place] [address] PCP - General 07/05/23 documented as of this encounter
--- OUTSIDE RECORDS SUMMARY | 2023-08-08 21:37 | XMS_ITS | Encounter Summary ---
Author Name Unknown Organization [facility] Address [address] [place] [address] Care Team Providers Care Racquet Maker Name Role Phone Found, No Pcp Primary Care Provider Unavailab le Encounter Details Date Type Department Care Team (Latest Contact Info) Description 09/20/1995 Orders Only Kyree Coronado MD [address] [place], [place] [id number] Social History Tobacco Use Types Packs/Day Years Used Date Smoking Tobacco: Never Assessed Sex and Gender Information Value Date Recorded Sex Assigned at Not on file Gender Identity Not on file Sexual Orientation Not on file documented as of this encounter Plan of Treatment Not on file documented as of this encounter Visit Diagnoses Not on filedocumented in this encounter Care Teams Racquet Maker Relationship Specialty Start Date End Date Found, No Pcp, [address] [place] [address] PCP - General 07/05/23 documented as of this encounter
--- OUTSIDE RECORDS SUMMARY | 2023-08-08 21:37 | XMS_ITS | Encounter Summary ---
Author Name Unknown Organization [facility] Address [address], [place] [address] Care Team Providers Care Bending Roll Hand Name Role Phone Found, No Pcp Primary [...] on filedocumented in this encounter Care Teams Bending Roll Hand Relationship Specialty Start Date End Date Found, No Pcp, [address] [place] [address] PCP - General 07/05/23 documented as of this encounter
--- OUTSIDE RECORDS SUMMARY | 2023-08-08 21:37 | XMS_ITS | Encounter Summary ---
Author Name Unknown Organization [facility] Address [address] [place] [address] Care Team Providers Care Precision Honer Name Role Phone Found, No Pcp Primary Care Provider Unavailab le Encounter Details Date Type Department Care Team (Latest Contact Info) Description 06/30/1997 Orders Only Kyree Coronado MD [address] [place], [place] [id number] Social History Tobacco Use Types Packs/Day Years Used Date Smoking Tobacco: Never Assessed Sex and Gender Information Value Date Recorded Sex Assigned at Not on file Gender Identity Not on file Sexual Orientation Not on file documented as of this encounter Plan of Treatment Not on file documented as of this encounter Visit Diagnoses Not on filedocumented in this encounter Care Teams Precision Honer Relationship Specialty Start Date End Date Found, No Pcp, [address] [place] [address] PCP - General 07/05/23 documented as of this encounter
--- OUTSIDE RECORDS SUMMARY | 2023-08-08 21:37 | XMS_ITS | Encounter Summary ---
Author Name Unknown Organization [facility] Address [address] [address] Care Team Providers Care Computer Repair Instructor Name Role Phone Found, No Pcp Primary Care Provider Unavailab le Encounter Details Date Type Department Care Team (Latest Contact Info) Description 07/02/1995 Orders Only Be Blum [facility] [address] [facility], [address] Social History Tobacco Use Types Packs/Day Years Used Date Smoking Tobacco: Never Assessed Sex and Gender Information Value Date Recorded Sex Assigned at Not on file Gender Identity Not on file Sexual Orientation Not on file documented as of this encounter Plan of Treatment Not on file documented as of this encounter Visit Diagnoses Not on filedocumented in this encounter Care Teams Computer Repair Instructor Relationship Specialty Start Date End Date Found, No Pcp, [address] [place] [address] PCP - General 07/05/23 documented as of this encounter
--- OUTSIDE RECORDS SUMMARY | 2023-08-08 21:37 | XMS_ITS | Encounter Summary ---
Author Name Unknown Organization [facility] Address [address], [place] [address] Care Team Providers Care Leather Patcher Name Role Phone Found, No Pcp Primary [...] on filedocumented in this encounter Care Teams Leather Patcher Relationship Specialty Start Date End Date Found, No Pcp, [address] [place] [address] PCP - General 07/05/23 documented as of this encounter
--- OUTSIDE RECORDS SUMMARY | 2023-08-08 21:37 | XMS_ITS | Encounter Summary ---
Author Name Unknown Organization [facility] Address [address], [place] [address] Care Team Providers Care Livestock Showman Name Role Phone Found, No Pcp Primary Care Provider Unavailab le Encounter Details Date Type Department Care Team (Latest Contact Info) Description 07/06/1994 [place] [address] [facility] [place] [address] Social History Tobacco Use Types Packs/Day Years Used Date Smoking Tobacco: Never Assessed Sex and Gender Information Value Date Recorded Sex Assigned at Not on file Gender Identity Not on file Sexual Orientation Not on file documented as of this encounter Plan of Treatment Not on file documented as of this encounter Visit Diagnoses Not on filedocumented in this encounter Care Teams Livestock Showman Relationship Specialty Start Date End Date Found, No PcpMD [address] [place] [address] PCP - General 07/05/23 documented as of this encounter
--- OUTSIDE RECORDS SUMMARY | 2023-08-08 21:37 | XMS_ITS | Encounter Summary ---
Author Name Unknown Organization [facility] Address [address], [place] [address] Care Team Providers Care E Business Specialist Name Role Phone Found, No Pcp [...] on filedocumented in this encounter Care Teams E Business Specialist Relationship Specialty Start Date End Date Found, No Pcp, [address] [place] [address] PCP - General 07/05/23 documented as of this encounter
--- OUTSIDE RECORDS SUMMARY | 2023-08-08 21:37 | XMS_ITS | Encounter Summary ---
Author Name Unknown Organization [facility] Address [address] [address] Care Team Providers Care Dispatcher Service Chief Name Role Phone Found, No Pcp Primary [...] on filedocumented in this encounter Care Teams Dispatcher Service Chief Relationship Specialty Start Date End Date Found, No Pcp, [address] [place] [address] PCP - General 07/05/23 documented as of this encounter
--- OUTSIDE RECORDS SUMMARY | 2023-08-08 21:37 | XMS_ITS | Encounter Summary ---
Author Name Unknown Organization [facility] Address [address] [address] Care Team Providers Care Car Hop Name Role Phone Found, No Pcp Primary Care Provider Unavailab le Encounter Details Date Type Department Care Team (Latest Contact Info) Description 06/02/1994 Orders Only Jarod Cooper MD [address] [id number] Social History Tobacco Use Types Packs/Day Years Used Date Smoking Tobacco: Never Assessed Sex and Gender Information Value Date Recorded Sex Assigned at Not on file Gender Identity Not on file Sexual Orientation Not on file documented as of this encounter Plan of Treatment Not on file documented as of this encounter Visit Diagnoses Not on filedocumented in this encounter Care Teams Car Hop Relationship Specialty Start Date End Date Found, No PcpMD [address] [place] [address] PCP - General 07/05/23 documented as of this encounter
--- OUTSIDE RECORDS SUMMARY | 2023-08-08 21:37 | XMS_ITS | Encounter Summary ---
Author Name Unknown Organization [facility] Address [address] [place] [address] Care Team Providers Care Mine Engineering Manager Name Role Phone Found, No Pcp Primary Care Provider Unavailab le Encounter Details Date Type Department Care Team (Latest Contact Info) Description 12/22/1997 Orders Only Nikhil Ceja MD [address] [place], [place] [address] Social History Tobacco Use Types Packs/Day Years Used Date Smoking Tobacco: Never Assessed Sex and Gender Information Value Date Recorded Sex Assigned at Not on file Gender Identity Not on file Sexual Orientation Not on file documented as of this encounter Plan of Treatment Not on file documented as of this encounter Visit Diagnoses Not on filedocumented in this encounter Care Teams Mine Engineering Manager Relationship Specialty Start Date End Date Found, No Pcp, [address] [place] [address] PCP - General 07/05/23 documented as of this encounter
--- OUTSIDE RECORDS SUMMARY | 2023-08-08 21:37 | XMS_ITS | Encounter Summary ---
Author Name Unknown Organization [facility] Address [address], [place] [address] Care Team Providers Care Coil Inspector Name Role Phone Found, No Pcp Primary Care Provider Unavailab le Encounter Details Date Type Department Care Team (Latest Contact Info) Description 05/09/1996 Orders Only Inés Satuffer Social History Tobacco Use Types Packs/Day Years Used Date Smoking Tobacco: Never Assessed Sex and Gender Information Value Date Recorded Sex Assigned at Not on file Gender Identity Not on file Sexual Orientation Not on file documented as of this encounter Plan of Treatment Not on file documented as of this encounter Visit Diagnoses Not on filedocumented in this encounter Care Teams Coil Inspector Relationship Specialty Start Date End Date Found, No Pcp, [address] [place] [address] PCP - General 07/05/23 documented as of this encounter
--- OUTSIDE RECORDS SUMMARY | 2023-08-08 21:37 | XMS_ITS | Encounter Summary ---
Author Name Unknown Organization [facility] Address [address] [address] Care Team Providers Care Wellfield Technician Name Role Phone Found, No Pcp [...] on filedocumented in this encounter Care Teams Wellfield Technician Relationship Specialty Start Date End Date Found, No Pcp, [address] [place] [address] PCP - General 07/05/23 documented as of this encounter
--- OUTSIDE RECORDS SUMMARY | 2023-08-08 21:37 | XMS_ITS | Encounter Summary ---
Author Name Unknown [facility] Address [address] [address] Care Team Providers Care Whey Department Operator Name Role Phone Found, No Pcp [...] on filedocumented in this encounter Care Teams Whey Department Operator Relationship Specialty Start Date End Date Found, No Pcp, [address] [place] [address] PCP - General 07/05/23 documented as of this encounter
--- OUTSIDE RECORDS SUMMARY | 2023-08-08 21:37 | XMS_ITS | Encounter Summary ---
Author Name Unknown Organization [facility] Address [address], [place] [address] Care Team Providers Care Pairer Inspector Name Role Phone Found, No Pcp [...] on filedocumented in this encounter Care Teams Pairer Inspector Relationship Specialty Start Date End Date Found, No Pcp, [address] [place] [address] PCP - General 07/05/23 documented as of this encounter
--- OUTSIDE RECORDS SUMMARY | 2023-08-08 21:37 | XMS_ITS | Encounter Summary ---
Author Name Unknown Organization [facility] Address [address] [address] Care Team Providers Care Food Scientist Name Role Phone Found, No Pcp Primary [...] on filedocumented in this encounter Care Teams Food Scientist Relationship Specialty Start Date End Date Found, No Pcp, [address] [place] [address] PCP - General 07/05/23 documented as of this encounter
--- OUTSIDE RECORDS SUMMARY | 2023-08-08 21:37 | XMS_ITS | Encounter Summary ---
Author Name Unknown Organization [facility] Address [address], [place] [address] Care Team Providers Care Ball Rolling Machine Operator Name Role Phone Found, No Pcp Primary Care Provider Unavailab le Encounter Details Date Type Department Care Team (Latest Contact Info) Description 01/15/1996 Orders Only Jarod Cooper MD [address] [place] [address] [id number] Social History Tobacco Use Types Packs/Day Years Used Date Smoking Tobacco: Never Assessed Sex and Gender Information Value Date Recorded Sex Assigned at Not on file Gender Identity Not on file Sexual Orientation Not on file documented as of this encounter Plan of Treatment Not on file documented as of this encounter Visit Diagnoses Not on filedocumented in this encounter Care Teams Ball Rolling Machine Operator Relationship Specialty Start Date End Date Found, No PcpMD [address] [place] [address] PCP - General 07/05/23 documented as of this encounter
--- OUTSIDE RECORDS SUMMARY | 2023-08-08 21:38 | XMS_ITS | Clinical Summary ---
Author Name Unknown Organization [employer] [facility] Address [place], [place] [address] Care Team Providers Care Hand Counter Name Role Phone Joann Brown DO Primary Care Provider [phone] Allergies No known active allergies Medications Medication [...] mouth once daily. 30 Tablet 4 Active metFORMIN (GLUCOPHAGE XR) 750 mg Extended-Release tabletIndications:Type 2 diabetes mellitus without complication, without long-term current use of insulin (HC) Take 1 Tablet (750 mg) by mouth once daily. 90 Tablet 4 Active celecoxib (CELEBREX) 200 mg capsuleIndications:Osteo arthritis, unspecified osteoarthritis type, unspecified site Take 1 Capsule (200 mg) by mouth once daily with a meal. 90 Capsule 3 3 024 Discontin ued(Reord er (E-cancel not sent)) metFORMIN (GLUCOPHAGE XR) 750 mg Extended-Release tabletIndications:Type [...] Encounters Date Type Department Care Team Description 08/08/2023 Refill [facility] [address] [place] [address] Shaqra, Joann Arianna, DO Refill Request (Lisinopril) 07/29/2023 Telephone [facility] [address] [place] [address] Shaqra, Joann Arianna, DO Medication Management 07/26/2023 Telephone [facility] [address] [place] [address] Shaqra, Joann Arianna, DO Refill Request 07/12/2023 Refill [facility] [address] [place] [address] Shaqra, Joann Arianna, DO Refill Request (Lisinopril, Celebrex) 07/02/2023 Refill [facility] [address] [place] [address] Shaqra, Joann Arianna, DO Refill Request (LISINOPRIL) 06/30/2023 Refill [facility] [address] [place] [address] Shaqra, Joann Arianna, DO Refill Request (LORazepam (ATIVAN) 1 mg tablet) from Last 3 Months Immunizations Name Administration Dates Next Due COVID-19 Vaccine Spikevax (M oderna 50mcg/0.5mL) 12YO+ 4920-3622 Formula PF 01/22/2023 COVID-19 vaccine (Pfizer-Bio NTech [...] Comments Blood Pressure 136/82 02/10/2023 3:42 PM RUBBER DOWN Pulse 99 02/10/2023 3:03 PM RUBBER DOWN Temperature 36.7 ??C (98.1 ??F) 09/27/2021 12:06 PM C DT Respiratory Rate 20 10/29/2021 2:30 PM CDT Oxygen Saturation 98% 02/10/2023 3:03 PM RUBBER DOWN Inhaled Oxygen Concentration - - Weight 153 kg (337 lb 6.4 oz) 02/10/2023 3:03 PM RUBBER DOWN Height 172.7 cm (5' 8) 02/10/2023 3:03 PM RUBBER DOWN Body Mass Index 51.3 02/10/2023 3:03 PM RUBBER DOWN Plan of Treatment Upcoming Encounters Date Type Department Care Team (Late st Contact Info) Description 09/01/2023 3:25 PM CDT Office Visit [facility] [address] [place] [address] Joann Brown, DO [address] [place] [address] Health Maintenance Due Date Last Done Comments [...] hypercholesterolemia SCAN-MAMMOGRAPHY REPORT 10/03/2020 12:00 AM CDT FOAMITE MIXER THIN PREP PAP SCREEN IMAGED Routine 04/15/2020 8:45 AM RUBBER DOWN Pap smear for cervical cancer screening ANTI HCV Routine 03/30/2019 12:27 PM RUBBER DOWN Need for hepatitis C screening test SCAN-COLONOSCOPY 12/30/2015 12:0 0 AM CDT from Last 3 Months or Most Recently Relevant to Health Maintenance Results * (ABNORMAL) LC LIPID PANEL AND CHOL/HDL RATIO (07/13/2022 3:05 PM CDT) Cholesterol, Total 207(H) 100 - 199 mg/dL 07/15/2022 11:09 AM CDT [facility] ([facility]) Triglycerides 160(H) 0 - 149 mg/dL 07/15/2022 11:09 AM [facility] ([facility] HDL Cholesterol 73 >39 mg/dL 11:09 AM [facility] VLDL Cholesterol Alex 27 5 - 40 mg/dL 07/15/2022 11:09 AM [facility] LDL Chol Calc (NIH) 107(H) 0 - 99 mg/dL 07/15/2022 11:09 AM [facility] T. Chol/HDL Ratio 2.8 0.0 - 4.4 ratio 07/15/2022 11:09 AM [facility] ([facility]) Comment: ?T. Chol/HDL Ratio ?Men ??Women ?1/2 Avg.Risk ??3.4 ?3.3 ?Avg.Risk ??5.0 ?4.4 ? 2X Avg.Risk ??9.6 ?7.1 ? 3X Avg.Risk 23.4 ?? 11.0 Blood BLOOD SPECIMEN / Unknown Venipuncture / Unknown 07/13/2022 3:05 PM CDT 07/13/2022 3:07 PM CDT Narrative [facility] ([facility]) - 07/15/2022 11:09 AM CDT Performed at: ??01 - [facility] [address] [place], [place] ??[id number] Cloth Cutting Inspector: Ugo Marshall MD, Phone: ??[phone] Joann Brown DO SEND OUTS [facility] ([facility]) [facility] [place] [address], * SCAN-MAMMOGRAPHY REPORT (10/03/2020 12:00 AM CDT) Anatomical Region Laterality Modality Other Scanner OTHER * FOAMITE MIXER THIN PREP PAP SCREEN IMAGED [[id number]] (04/15/2020 8:45 AM RUBBER DOWN) Case Report Gynecologic Cytology Report ? Case: [id number] ? Authorizing Provider: ??Sherrie Doyle MD ? Collected: ? 04/15/2020 0845 ? Ordering Location: ? [facility] ?? Received: ?04/15/2020 1020 ? Clinic ? First Screen: ?Giselle Alexandra ? Specimen: ?FOAMITE MIXER ThinPrep Vial Screening, Cervical ? 04/23/2020 2:58 PM RUBBER DOWN [facility] LABORAT[facility]- ENTRAL LABORATORY INTERPRETATION/ RESULT NEGATIVE FOR INTRAEPITHELIAL LESION OR MALIGNANCY (NIL) (none) 04/23/2020 2:58 PM RUBBER DOWN [facility] IMEN ADEQUACY Satisfactory for evaluation Endocervical component present 04/23/2020 2:58 PM RUBBER DOWN [facility] HPV REQUEST HPV and PAP 04/23/2020 2:58 PM RUBBER DOWN [facility] Date of LMP uncertain 04/23/2020 2:58 PM RUBBER DOWN [facility] Last Pap Date 03/18/17 04/23/2020 2:58 PM RUBBER DOWN [facility] Last Pap Result NIL 2:58 PM RUBBER DOWN [facility] Abnormal Pap or [place] Bx in last 5 years No 04/23/2020 2:58 PM RUBBER DOWN [facility] Menstrual Status Postmenopausal 04/23/2020 2:58 PM RUBBER DOWN [facility] [place] Bx Done Today No 04/23/2020 2:58 PM RUBBER DOWN [facility] Additional Information None given 04/23/2020 2:58 PM RUBBER DOWN [facility] Comment: Cytology is screened at [facility] Laboratory - [address], [place] [address] and [facility] - [address] [place] [address] and [facility] - [address] [place] [address] Interpreted at [facility] - [address], [place] [address] Automated Review Successful 04/23/2020 2:58 PM RUBBER DOWN [facility] Comment:Specimen processed s uccessfully by automated upfitter device, ThinPrep Imaging System, [employer] ANCILLARY TESTING FOAMITE MIXER HPV Ordered, Please see separate report 04/23/2020 2:58 PM RUBBER DOWN [facility] Note The pap test is a screening technique, not a diagnostic procedure. It is used primarily to screen for squamous cancers and precursor lesions. Published studies have shown that it is subject to both false negative and false positive results. The pap test should not be used as the sole means to diagnose or exclude pre-malignant and malignant lesions. 04/23/2020 2:58 PM RUBBER DOWN [facility] Other (Cervical) Non-Blood / Unknown 04/15/2020 8:45 AM RUBBER DOWN 04/15/2020 10:20 AM RUBBER DOWN Sherrie Doyle MD PATHOLOGY/CYTOLOGY [facility] [address] [place] [address], [place] * ANTI HCV (03/30/2019 12:27 PM RUBBER DOWN) HEPATITIS C ANTIBODY Non-React chiquita Non-React chiquita 03/30/2019 7:09 PM RUBBER DOWN [facility] TRAL LABORATORY Comment:Antibodies to HCV no t detected; does not exclude the possibility of exposure to HCV. Blood BLOOD SPECIMEN / Unknown Butterfly / Unknown 03/30/2019 12:27 PM RUBBER DOWN 03/30/2019 12:27 PM RUBBER DOWN Sherrie Doyle MD SEND OUTS [facility] [address] [place] [address], [place] * SCAN-COLONOSCOPY (12/30/2015 12:00 AM CDT) Scanner OTHER from Last 3 Months or Most Recently Relevant to Health Maintenance Care Teams Hand Counter Relationship Specialty Start Date End Date Joann Brown DO [address] [place] [address] PCP - General Family Practice 07/13/22
[2023-08-08 21:48] LABS: Chloride* 108 mmol/L (96-114); Potassium* 3.1 mmol/L (3.6-5.1); Sodium* 139 mmol/L (135-149)
[2023-08-08 21:51] LABS: Anion Gap 12 mEq/L (7-15); Carbon Dioxide* 19 mmol/L (20-32); Creatinine* 0.8 mg/dL (0.5-1.5); Est. Creatinine Clearance* 79.13; Estimated Glomerular Filt Rate 85 ml/min
[2023-08-08 21:52] LABS: Blood Urea Nitrogen* 16 mg/dL (7-30); Calcium* 9.3 mg/dL (8.4-10.6); Glucose* 124 mg/dL (60-115); Magnesium* 1.8 mg/dL (1.5-2.6)
[2023-08-08 21:55] LABS: C Reactive Protein* < 0.5 mg/dL (0.5-1.0)
[2023-08-08] MEDS: POTASSIUM CHLORIDE 10 MEQ/100 ML PIGGYBACK 100 MEQ IVPB (22:27)
[2023-08-08] MEDS: PROPOFOL 10 MG/ML INJ 100 MG IVP (23:19)
[2023-08-08] MEDS: POTASSIUM BICARB 25 MEQ EFFERVESCENT TAB 50 MEQ PO (23:59)
[2023-08-09] VITALS (17 sets, daily range): BP systolic 90–139; BP diastolic 52–114; PULSE 81–93; RESP 21; O2SAT 86–98
== END 2023-08-09 01:08 | disposition home or self-care (01) ==
PROVIDERS: Emergency Provider Family Medicine; PCP Family Medicine
DX: I48.20 Chronic atrial fibrillation, unspecified (principal); E87.6 Hypokalemia
CPT/HCPCS: 92960; 36415; 80048; 83735; 84443; 85025; 86140; 93005; 96365; 96375; 99284; 99285; 99291; A9270; J2704; J3480

== ENCOUNTER 2023-09-30 08:57 | Day surgery (SDC) | payer OTHER, SELFPAY ==
[2023-09-30] VITALS (23 sets, daily range): BP systolic 94–145; BP diastolic 55–81; PULSE 72–99; RESP 16–20; TEMP 35.6–36.4; O2SAT 90–99; BMI 49.1
[2023-09-30] MEDS: MIDAZOLAM HCL 1 MG/ML inj IVP (08:24)
[2023-09-30] MEDS: fentaNYL 100 MCG/2 ML inj IVP (08:24)
[2023-09-30] MEDS: OXYCODONE (CR) 10 MG TAB.ER.12H PO (08:24)
[2023-09-30] MEDS: ACETAMINOPHEN 500 MG TABLET 1000 MG PO ×3 (08:24→22:18)
[2023-09-30] MEDS: CELECOXIB 200 MG CAPSULE PO (08:24)
[2023-09-30] MEDS: LACTATED RINGERS 1000 ML 1,000 ML 100 ML IV ×2 (08:25→13:06)
--- OUTSIDE RECORDS SUMMARY | 2023-09-30 09:00 | XMS_ITS | Encounter Summary ---
Author Organization [facility] Address [address], [place] [address] Care Team Providers Care Technology Trainer Name Role Phone Found, No Pcp Primary [...] on filedocumented in this encounter Care Teams Technology Trainer Relationship Specialty Start Date End Date Found, No Pcp, [address] [place] [address] PCP - General 07/05/23 documented as of this encounter
--- OUTSIDE RECORDS SUMMARY | 2023-09-30 09:00 | XMS_ITS | Encounter Summary ---
Author Organization [facility] Address [address] [place] [address] Care Team Providers Care Database Programmer Analyst Name Role Phone Found, No Pcp Primary Care Provider Unavailab le Encounter Details Date Type Department Care Team (Latest Contact Info) Description 12/22/1997 Orders Only Nikhil Ceja MD [address] [place], [place] [address] Social History Tobacco Use Types Packs/Day Years Used Date Smoking Tobacco: Never Assessed Sex and Gender Information Value Date Recorded Sex Assigned at Not on file Gender Identity Not on file Sexual Orientation Not on file documented as of this encounter Plan of Treatment Not on file documented as of this encounter Visit Diagnoses Not on filedocumented in this encounter Care Teams Database Programmer Analyst Relationship Specialty Start Date End Date Found, No Pcp, [address] [place] [address] PCP - General 07/05/23 documented as of this encounter
--- OUTSIDE RECORDS SUMMARY | 2023-09-30 09:00 | XMS_ITS | Encounter Summary ---
Author Organization [facility] Address [address], [place] [address] Care Team Providers Care Skeins Yarn Examiner Name Role Phone Found, No Pcp Primary [...] on filedocumented in this encounter Care Teams Skeins Yarn Examiner Relationship Specialty Start Date End Date Found, No Pcp, [address] [place] [address] PCP - General 07/05/23 documented as of this encounter
--- OUTSIDE RECORDS SUMMARY | 2023-09-30 09:00 | XMS_ITS | Encounter Summary ---
Author Organization [facility] Address [address] [place] [address] Care Team Providers Care Senior Procurement Manager Name Role Phone Found, No Pcp Primary Care Provider Unavailab le Encounter Details Date Type Department Care Team (Latest Contact Info) Description 06/30/1997 Orders Only Kyree Coronado MD [address] [place], [place] [id number] Social History Tobacco Use Types Packs/Day Years Used Date Smoking Tobacco: Never Assessed Sex and Gender Information Value Date Recorded Sex Assigned at Not on file Gender Identity Not on file Sexual Orientation Not on file documented as of this encounter Plan of Treatment Not on file documented as of this encounter Visit Diagnoses Not on filedocumented in this encounter Care Teams Senior Procurement Manager Relationship Specialty Start Date End Date Found, No Pcp, [address] [place] [address] PCP - General 07/05/23 documented as of this encounter
--- OUTSIDE RECORDS SUMMARY | 2023-09-30 09:00 | XMS_ITS | Encounter Summary ---
Author Organization [facility] Address [address], [place] [address] Care Team Providers Care Crew Team Member Name Role Phone Found, No Pcp Primary [...] on filedocumented in this encounter Care Teams Crew Team Member Relationship Specialty Start Date End Date Found, No Pcp, [address] [place] [address] PCP - General 07/05/23 documented as of this encounter
--- OUTSIDE RECORDS SUMMARY | 2023-09-30 09:00 | XMS_ITS | Encounter Summary ---
Author Organization [facility] Address [address], [place] [address] Care Team Providers Care Senior Software Engineering Manager Name Role Phone Found, No [...] filedocumented in this encounter Care Teams Senior Software Engineering Manager Relationship Specialty Start Date End Date Found, No Pcp, [address] [place] [address] PCP - General 07/05/23 documented as of this encounter
--- OUTSIDE RECORDS SUMMARY | 2023-09-30 09:00 | XMS_ITS | Encounter Summary ---
Author Organization [facility] Address [address] [place] [address] Care Team Providers Care Sexer Name Role Phone Found, No Pcp Primary Care Provider Unavailab le Encounter Details Date Type Department Care Team (Latest Contact Info) Description 08/12/1996 Orders Only Joshua Váz[place] [address] [place] [address] Social History Tobacco Use Types Packs/Day Years Used Date Smoking Tobacco: Never Assessed Sex and Gender Information Value Date Recorded Sex Assigned at Not on file Gender Identity Not on file Sexual Orientation Not on file documented as of this encounter Plan of Treatment Not on file documented as of this encounter Visit Diagnoses Not on filedocumented in this encounter Care Teams Sexer Relationship Specialty Start Date End Date Found, No Pcp, [address] [facility] [place] [address] PCP - General 07/05/23 documented as of this encounter
--- OUTSIDE RECORDS SUMMARY | 2023-09-30 09:00 | XMS_ITS | Encounter Summary ---
Author Organization [facility] Address [address], [place] [address] Care Team Providers Care Java Manager Name Role Phone Found, No Pcp [...] on filedocumented in this encounter Care Teams Java Manager Relationship Specialty Start Date End Date Found, No Pcp, [address] [place] [address] PCP - General 07/05/23 documented as of this encounter
--- OUTSIDE RECORDS SUMMARY | 2023-09-30 09:00 | XMS_ITS | Encounter Summary ---
Author Organization [facility] Address [address] [place] [address] Care Team Providers Care Hazard Mitigation Officer Name Role Phone Found, No Pcp Primary Care Provider Unavailab le Encounter Details Date Type Department Care Team (Latest Contact Info) Description 08/17/1996 Orders Only Paulina Villegas MD [address] [facility] [address] [place] [address] Social History Tobacco Use Types Packs/Day Years Used Date Smoking Tobacco: Never Assessed Sex and Gender Information Value Date Recorded Sex Assigned at Not on file Gender Identity Not on file Sexual Orientation Not on file documented as of this encounter Plan of Treatment Not on file documented as of this encounter Visit Diagnoses Not on filedocumented in this encounter Care Teams Hazard Mitigation Officer Relationship Specialty Start Date End Date Found, No Pcp, [address] [place] [address] PCP - General 07/05/23 documented as of this encounter
--- OUTSIDE RECORDS SUMMARY | 2023-09-30 09:00 | XMS_ITS | Encounter Summary ---
Author Organization [facility] Address [address], [place] [address] Care Team Providers Care Water Resource Agent Name Role Phone Found, No Pcp Primary [...] on filedocumented in this encounter Care Teams Water Resource Agent Relationship Specialty Start Date End Date Found, No Pcp, [address] [place] [address] PCP - General 07/05/23 documented as of this encounter
--- OUTSIDE RECORDS SUMMARY | 2023-09-30 09:00 | XMS_ITS | Encounter Summary ---
Author Organization [facility] Address [address] [address] Care Team Providers Care Wire Frame Maker Name Role Phone Found, No Pcp [...] on filedocumented in this encounter Care Teams Wire Frame Maker Relationship Specialty Start Date End Date Found, No Pcp, [address] [place] [address] PCP - General 07/05/23 documented as of this encounter
--- OUTSIDE RECORDS SUMMARY | 2023-09-30 09:00 | XMS_ITS | Clinical Summary ---
[facility] Address [address] [place] [address] Care Team Providers Care Gerontological Nurse Practitioner Name Role Phone Found, No Pcp MD Primary Care Provider Unavailab le Source Comments You are receiving this document as you are listed as the primary care provider,follow-up provider, or the patient has been referred to you for consultation.This is in compliance with the Medicare andSelect [facility] Hospital[facility] EHR Incentive Program,which states Providers who transition their patient to another setting of careor provider of care or refers their patient to another provider of care shouldprovide summary care record for each transition of care or referral. [facility] Allergies No known active allergies Medications Medication [...] as needed. 30 Tablet 1 01/31/2023 Active Immunizations Name Administration Dates Next Due PPSV23 [...] 156.5 kg (345 lb) 05/14/2023 10:00 AM COMPUTER ART INSTRUCTOR Height 175.3 cm (5' 9) 05/14/2023 10:00 AM COMPUTER ART INSTRUCTOR Body Mass Index 50.95 05/14/2023 10:00 AM COMPUTER ART INSTRUCTOR Plan of Treatment Health Maintenance Due Date Last Done Comments Cervical Cancer Screening Due 1965 Colon Cancer Screening Plan Due 1964 Hep C Screening (Preventive Services) 1964 Mammogram 1964 HIV Screening (Preventive Services) 1980 HepB (1) 1983 Adult Preventive Visit 01/16/1999 01/16/1998 Cholesterol 2009 01/16/1998 Influenza (#1) 2023 01/22/2023, 11/21, 12/18/2020, Additional history exists Diabetes Screening- (based on age and BMI) 02/10/2026 02/10/2023, 11/09/2022, 07/13/2022, Additional history exists DTaP/Tdap/Td (5 - Tdap) 07/13/2032 07/14/19, 01/02/2012, 12/23/2011, Additional history exists Zoster/Shingles Completed 05/19/2021, 03/30/2019 Pneumococcal Aged Out 07/13/2022, 11/2019, 06/11/2000 No longer eligible based on patient's age to complete this topic COVID-19 Vaccine Completed 01/22/2023, , 07/10/2021, Additional history exists HepA Aged Out No [...] A1C (EXTERNAL RESULT) Routine 02/10/2023 2:51 PM COMPUTER ART INSTRUCTOR CHOLESTEROL (TOTAL) Routine 01/16/1998 1 1:49 AM COMPUTER ART INSTRUCTOR from Last 3 Months or Most Recently Relevant to Health Maintenance Results * (ABNORMAL) CHOLESTEROL (TOTAL) (01/16/1998 11:49 AM COMPUTER ART INSTRUCTOR) Cholesterol 238(H) <200 mg/dl [facility] Cholesterol Result should not be interpreted without the patient's history of cardiovascular risk factors. [facility] 01/16/1998 11:4 9 AM COMPUTER ART INSTRUCTOR 01/16/1998 11:50 AM COMPUTER ART INSTRUCTOR Emilio Dewey MD LAB_1 [facility] [address] [address] from Last 3 Months or Most Recently Relevant to Health Maintenance Care Teams Gerontological Nurse Practitioner Relationship Specialty Start Date End Date Found, No Pcp, [address] [place] [address] PCP - General 07/05/23
--- OUTSIDE RECORDS SUMMARY | 2023-09-30 09:00 | XMS_ITS | Encounter Summary ---
Author Organization [facility] Address [address] [address] Care Team Providers Care Grey Goods Marker Name Role Phone Found, No Pcp Primary [...] on filedocumented in this encounter Care Teams Grey Goods Marker Relationship Specialty Start Date End Date Found, No Pcp, [address] [place] [address] PCP - General 07/05/23 documented as of this encounter
--- OUTSIDE RECORDS SUMMARY | 2023-09-30 09:00 | XMS_ITS | Encounter Summary ---
Author Organization [facility] Address [address] [address] Care Team Providers Care Tester Operator Name Role Phone Found, No Pcp [...] on filedocumented in this encounter Care Teams Tester Operator Relationship Specialty Start Date End Date Found, No Pcp, [address] [place] [address] PCP - General 07/05/23 documented as of this encounter
--- OUTSIDE RECORDS SUMMARY | 2023-09-30 09:00 | XMS_ITS | Encounter Summary ---
Author Organization [facility] Address [address] [address] Care Team Providers Care Netbackup Administrator Name Role Phone Found, No Pcp [...] on filedocumented in this encounter Care Teams Netbackup Administrator Relationship Specialty Start Date End Date Found, No Pcp, [address] [place] [address] PCP - General 07/05/23 documented as of this encounter
--- OUTSIDE RECORDS SUMMARY | 2023-09-30 09:00 | XMS_ITS | Encounter Summary ---
Author Organization [facility] Address [address] [place] [address] Care Team Providers Care Inspector Filters Name Role Phone Found, No Pcp Primary Care Provider Unavailab le Encounter Details Date Type Department Care Team (Latest Contact Info) Description 06/12/1999 Orders Only Inés Lozada MD [address] [place] [address] Social History Tobacco Use Types Packs/Day Years Used Date Smoking Tobacco: Never Assessed Sex and Gender Information Value Date Recorded Sex Assigned at Not on file Gender Identity Not on file Sexual Orientation Not on file documented as of this encounter Plan of Treatment Not on file documented as of this encounter Visit Diagnoses Not on filedocumented in this encounter Care Teams Inspector Filters Relationship Specialty Start Date End Date Found, No PcpMD [address] [place] [address] PCP - General 07/05/23 documented as of this encounter
--- OUTSIDE RECORDS SUMMARY | 2023-09-30 09:01 | XMS_ITS | Encounter Summary ---
Author Organization [facility] Address [address] [address] Care Team Providers Care Computer Architect Name Role Phone Found, No Pcp Primary [...] filedocumented in this encounter Care Teams Computer Architect Relationship Specialty Start Date End Date Found, No Pcp, [address] [place] [address] PCP - General 07/05/23 documented as of this encounter
--- OUTSIDE RECORDS SUMMARY | 2023-09-30 09:01 | XMS_ITS | Encounter Summary ---
Author Organization [facility] Address [address] [address] Care Team Providers Care Emt Dispatcher Name Role Phone Found, No Pcp Primary [...] on filedocumented in this encounter Care Teams Emt Dispatcher Relationship Specialty Start Date End Date Found, No Pcp, [address] [place] [address] PCP - General 07/05/23 documented as of this encounter
--- OUTSIDE RECORDS SUMMARY | 2023-09-30 09:01 | XMS_ITS | Encounter Summary ---
Author Organization [facility] Address [address] [address] Care Team Providers Care Commercial Coordinator Name Role Phone Found, No Pcp Primary Care Provider Unavailab le Encounter Details Date Type Department Care Team (Latest Contact Info) Description 07/06/1994 [place] [address] [place], [place] [address] Social History Tobacco Use Types Packs/Day Years Used Date Smoking Tobacco: Never Assessed Sex and Gender Information Value Date Recorded Sex Assigned at Not on file Gender Identity Not on file Sexual Orientation Not on file documented as of this encounter Plan of Treatment Not on file documented as of this encounter Visit Diagnoses Not on filedocumented in this encounter Care Teams Commercial Coordinator Relationship Specialty Start Date End Date Found, No PcpMD [address] [facility] [facility] [place] [address] PCP - General 07/05/23 documented as of this encounter
--- OUTSIDE RECORDS SUMMARY | 2023-09-30 09:01 | XMS_ITS | Encounter Summary ---
Author Organization [facility] Address [address], [place] [address] Care Team Providers Care Gas Mask Assembler Name Role Phone Found, No Pcp Primary Care Provider Unavailab le Encounter Details Date Type Department Care Team (Latest Contact Info) Description 07/02/1995 Orders Only Be Blum [facility] [address] [facility] [address] Social History Tobacco Use Types Packs/Day Years Used Date Smoking Tobacco: Never Assessed Sex and Gender Information Value Date Recorded Sex Assigned at Not on file Gender Identity Not on file Sexual Orientation Not on file documented as of this encounter Plan of Treatment Not on file documented as of this encounter Visit Diagnoses Not on filedocumented in this encounter Care Teams Gas Mask Assembler Relationship Specialty Start Date End Date Found, No Pcp, [address] [place] [address] PCP - General 07/05/23 documented as of this encounter
--- OUTSIDE RECORDS SUMMARY | 2023-09-30 09:01 | XMS_ITS | Encounter Summary ---
Author Organization [facility] Address [address], [place] [address] Care Team Providers Care Elevator Constructor Hydraulic Name Role Phone Found, No Pcp Primary [...] on filedocumented in this encounter Care Teams Elevator Constructor Hydraulic Relationship Specialty Start Date End Date Found, No Pcp, [address] [place] [address] PCP - General 07/05/23 documented as of this encounter
--- OUTSIDE RECORDS SUMMARY | 2023-09-30 09:01 | XMS_ITS | Referral Summary ---
Author Organization [facility] Address [address] [place] [address]. [place] [address] Care Team Providers Care Provider Contracting Consultant Name Role Phone Mp Brown DO Primary Care Provider [phone] Allergies No known active allergies Medications Medication [...] of Treatment Not on file Care Teams Provider Contracting Consultant Relationship Specialty Start Date End Date Mp Brown DO [address] [place] [address] PCP - General 01/01/23
--- OUTSIDE RECORDS SUMMARY | 2023-09-30 09:01 | XMS_ITS | Encounter Summary ---
Author Organization [facility] Address [address], [place] [address] Care Team Providers Care Buffing And Polishing Wheel Repairer Name Role Phone Found, No Pcp [...] on filedocumented in this encounter Care Teams Buffing And Polishing Wheel Repairer Relationship Specialty Start Date End Date Found, No Pcp, [address] [place] [address] PCP - General 07/05/23 documented as of this encounter
--- OUTSIDE RECORDS SUMMARY | 2023-09-30 09:01 | XMS_ITS | Encounter Summary ---
Author Organization [facility] Address [address] [address] Care Team Providers Care Tufting Machine Fixer Name Role Phone Found, No Pcp Primary Care Provider Unavailab le Encounter Details Date Type Department Care Team (Latest Contact Info) Description 06/02/1994 Orders Only Jarod Cooper MD [address] [place] [id number] Social History Tobacco Use Types Packs/Day Years Used Date Smoking Tobacco: Never Assessed Sex and Gender Information Value Date Recorded Sex Assigned at Not on file Gender Identity Not on file Sexual Orientation Not on file documented as of this encounter Plan of Treatment Not on file documented as of this encounter Visit Diagnoses Not on filedocumented in this encounter Care Teams Tufting Machine Fixer Relationship Specialty Start Date End Date Found, No PcpMD [address] [facility] [place] [place] [address] PCP - General 07/05/23 documented as of this encounter
--- OUTSIDE RECORDS SUMMARY | 2023-09-30 09:01 | XMS_ITS | Encounter Summary ---
Author Organization [facility] Address [address] [address] Care Team Providers Care Looping Machine Operator Name Role Phone Found, No [...] on filedocumented in this encounter Care Teams Looping Machine Operator Relationship Specialty Start Date End Date Found, No Pcp, [address] [place] [address] PCP - General 07/05/23 documented as of this encounter
--- OUTSIDE RECORDS SUMMARY | 2023-09-30 09:01 | XMS_ITS | Encounter Summary ---
Author Organization [facility] Address [address] [place] [address] Care Team Providers Care Day Haul Youth Supervisor Name Role Phone Found, No Pcp Primary Care Provider Unavailab le Encounter Details Date Type Department Care Team (Latest Contact Info) Description 09/20/1995 Orders Only Kyree Coronado MD [address] [place], [place] [id number] Social History Tobacco Use Types Packs/Day Years Used Date Smoking Tobacco: Never Assessed Sex and Gender Information Value Date Recorded Sex Assigned at Not on file Gender Identity Not on file Sexual Orientation Not on file documented as of this encounter Plan of Treatment Not on file documented as of this encounter Visit Diagnoses Not on filedocumented in this encounter Care Teams Day Haul Youth Supervisor Relationship Specialty Start Date End Date Found, No Pcp, [address] [place] [address] PCP - General 07/05/23 documented as of this encounter
--- OUTSIDE RECORDS SUMMARY | 2023-09-30 09:01 | XMS_ITS | Encounter Summary ---
Author Organization [facility] Address [address], [place] [address] Care Team Providers Care Comic Writer Name Role Phone Found, No Pcp Primary [...] on filedocumented in this encounter Care Teams Comic Writer Relationship Specialty Start Date End Date Found, No Pcp, [address] [place] [address] PCP - General 07/05/23 documented as of this encounter
--- OUTSIDE RECORDS SUMMARY | 2023-09-30 09:01 | XMS_ITS | Encounter Summary ---
Author Organization [facility] Address [address], [place] [address] Care Team Providers Care Taker Off Hemp Fiber Name Role Phone Found, No Pcp Primary [...] on filedocumented in this encounter Care Teams Taker Off Hemp Fiber Relationship Specialty Start Date End Date Found, No Pcp, [address] [place] [address] PCP - General 07/05/23 documented as of this encounter
--- OUTSIDE RECORDS SUMMARY | 2023-09-30 09:01 | XMS_ITS | Encounter Summary ---
Author Organization [facility] Address [address], [place] [address] Care Team Providers Care Kerrick Kleaner Operator Name Role Phone Found, No Pcp [...] on filedocumented in this encounter Care Teams Kerrick Kleaner Operator Relationship Specialty Start Date End Date Found, No Pcp, [address] [place] [address] PCP - General 07/05/23 documented as of this encounter
--- OUTSIDE RECORDS SUMMARY | 2023-09-30 09:01 | XMS_ITS | Encounter Summary ---
Author Organization [facility] Address [address], [place] [address] Care Team Providers Care Director External Communications Name Role Phone Found, No Pcp Primary [...] filedocumented in this encounter Care Teams Director External Communications Relationship Specialty Start Date End Date Found, No Pcp, [address] [place] [address] PCP - General 07/05/23 documented as of this encounter
--- OUTSIDE RECORDS SUMMARY | 2023-09-30 09:01 | XMS_ITS | Encounter Summary ---
Author Organization [facility] Address [address], [place] [address] Care Team Providers Care Door Clamp Operator Name Role Phone Found, No Pcp [...] on filedocumented in this encounter Care Teams Door Clamp Operator Relationship Specialty Start Date End Date Found, No Pcp, [address] [place] [address] PCP - General 07/05/23 documented as of this encounter
--- OUTSIDE RECORDS SUMMARY | 2023-09-30 09:01 | XMS_ITS | Encounter Summary ---
Author Organization [facility] Address [address], [place] [address] Care Team Providers Care Supportability Engineer Name Role Phone Found, No Pcp [...] on filedocumented in this encounter Care Teams Supportability Engineer Relationship Specialty Start Date End Date Found, No Pcp, [address] [place] [address] PCP - General 07/05/23 documented as of this encounter
--- OUTSIDE RECORDS SUMMARY | 2023-09-30 09:01 | XMS_ITS | Encounter Summary ---
Author Organization [facility] Address [address], [place] [address] Care Team Providers Care Jukebox Coin Collector Name Role Phone Found, No Pcp Primary [...] on filedocumented in this encounter Care Teams Jukebox Coin Collector Relationship Specialty Start Date End Date Found, No Pcp, [address] [place] [address] PCP - General 07/05/23 documented as of this encounter
--- OUTSIDE RECORDS SUMMARY | 2023-09-30 09:01 | XMS_ITS | Encounter Summary ---
Author Organization [facility] Address [address] [place] [address] Care Team Providers Care Control And Recovery Special Tactics Name Role Phone Found, No Pcp Primary Care Provider Unavailab le Encounter Details Date Type Department Care Team (Latest Contact Info) Description 07/02/1994 [place] [address] [place] [address] Social History Tobacco Use Types [...] on filedocumented in this encounter Care Teams Control And Recovery Special Tactics Relationship Specialty Start Date End Date Found, No Pcp, [address] [place] [address] PCP - General 07/05/23 documented as of this encounter
--- OUTSIDE RECORDS SUMMARY | 2023-09-30 09:01 | XMS_ITS | Encounter Summary ---
Author Organization [facility] Address [address] [address] Care Team Providers Care Administrative Staff Supervisor Name Role Phone Found, No Pcp Primary Care Provider Unavailab le Encounter Details Date Type Department Care Team (Latest Contact Info) Description 01/15/1996 Orders Only Jarod Cooper MD [address] [place] [id number] Social History Tobacco Use Types Packs/Day Years Used Date Smoking Tobacco: Never Assessed Sex and Gender Information Value Date Recorded Sex Assigned at Not on file Gender Identity Not on file Sexual Orientation Not on file documented as of this encounter Plan of Treatment Not on file documented as of this encounter Visit Diagnoses Not on filedocumented in this encounter Care Teams Administrative Staff Supervisor Relationship Specialty Start Date End Date Found, No PcpMD [address] [facility] [address] PCP - General 07/05/23 documented as of this encounter
--- OUTSIDE RECORDS SUMMARY | 2023-09-30 09:01 | XMS_ITS | Clinical Summary ---
Author Organization [facility] Address [address] [place] [address]. [place] [address] Care Team Providers Care Surgical Instrument Repair Specialist Name Role Phone Mp Brown DO Primary Care Provider [phone] Allergies No known active allergies Medications Medication [...] 07/14/2023 07/14/19 23, 05/19/2021, 04/15/2020 INFLUENZA VACCINE (#1) 2023 2, 12/18/2020, 12/27/2019, Additional history exists DTAP/TDAP/TD IMMUNIZATION [...] age to complete this topic Care Teams Surgical Instrument Repair Specialist Relationship Specialty Start Date End Date Mp Brown DO [address] [place] [address] PCP - General 01/01/23
--- OUTSIDE RECORDS SUMMARY | 2023-09-30 09:01 | XMS_ITS | Encounter Summary ---
Author Organization [facility] Address [address] [place] [address] Care Team Providers Care Workers Compensation Attorney Name Role Phone Found, No Pcp Primary Care Provider Unavailab le Encounter Details Date Type Department Care Team (Late st Contact Info) Description 06/05/1995 Orders Only [facility] Scott Pedroza MD [address] [address] Social History Tobacco Use Types Packs/Day Years Used Date Smoking Tobacco: Never Assessed Sex and Gender Information Value Date Recorded Sex Assigned at Not on file Gender Identity Not on file Sexual Orientation Not on file documented as of this encounter Plan of Treatment Not on file documented as of this encounter Visit Diagnoses Not on filedocumented in this encounter Care Teams Workers Compensation Attorney Relationship Specialty Start Date End Date Found, No Pcp, [address] [place] [address] PCP - General 07/05/23 documented as of this encounter
--- OUTSIDE RECORDS SUMMARY | 2023-09-30 09:01 | XMS_ITS | Encounter Summary ---
Author Organization [facility] Address [address], [place] [address] Care Team Providers Care City Letter Carrier Name Role Phone Found, No Pcp Primary [...] on filedocumented in this encounter Care Teams City Letter Carrier Relationship Specialty Start Date End Date Found, No Pcp, [address] [place] [address] PCP - General 07/05/23 documented as of this encounter
--- OUTSIDE RECORDS SUMMARY | 2023-09-30 09:01 | XMS_ITS | Encounter Summary ---
Author Organization [facility] Address [address] [address] Care Team Providers Care Product Support Analyst Name Role Phone Found, No Pcp [...] on filedocumented in this encounter Care Teams Product Support Analyst Relationship Specialty Start Date End Date Found, No Pcp, [address] [place] [address] PCP - General 07/05/23 documented as of this encounter
--- OUTSIDE RECORDS SUMMARY | 2023-09-30 09:01 | XMS_ITS | Encounter Summary ---
Author Organization [facility] Address [address], [place] [address] Care Team Providers Care Clinical Rn Manager Name Role Phone Found, No Pcp [...] on filedocumented in this encounter Care Teams Clinical Rn Manager Relationship Specialty Start Date End Date Found, No Pcp, [address] [place] [address] PCP - General 07/05/23 documented as of this encounter
--- OUTSIDE RECORDS SUMMARY | 2023-09-30 09:01 | XMS_ITS | Encounter Summary ---
Author Organization [facility] Address [address] [address] Care Team Providers Care Product Support Specialist Name Role Phone Found, No [...] in this encounter Care Teams Product Support Specialist Relationship Specialty Start Date End Date Found, No Pcp, [address] [place] [address] PCP - General 07/05/23 documented as of this encounter
--- OUTSIDE RECORDS SUMMARY | 2023-09-30 09:02 | XMS_ITS | Clinical Summary ---
Author Organization [facility] Address [place], [place] [address] Care Team Providers Care Credit Front Office Developer Name Role Phone Joann Brown DO Primary Care Provider [phone] Allergies No known active allergies Medications Medication [...] 1 time/day 100 Each 3 1 Active clobetasol cream 0.05% (TEMOVATE) 0.05 % creamIndications:Dermati tis Use daily as needed 30 g 1 3 Active LORazepam (ATIVAN) 1 mg tabletIndications:Insomn ia, idiopathic Take 1 Tablet (1 mg) by mouth at bedtime if needed for Anxiety or Sleep. 15 Tablet 4 Active semaglutide (Rybelsus) 14 mg tabletIndications:Type 2 diabetes mellitus without complication, without long-term current use of insulin (HC) Take 14 mg by mouth once daily before a meal. 30 Tablet 11 4 Active metFORMIN (GLUCOPHAGE XR) 750 mg Extended-Release tabletIndications:Type 2 diabetes mellitus without complication, without long-term current use of insulin (HC) Take 1 Tablet (750 mg) by mouth once daily. 90 Tablet 3 4 Active pantoprazole (PROTONIX) 40 mg delayed-release tabletIndications:Gastro esophageal reflux disease, unspecified whether esophagitis present Take 1 Tablet (40 mg) by mouth once daily. 90 Tablet 3 4 Active lisinopriL (PRINIVIL; ZESTRIL) 40 mg tabletIndications:Essent ial hypertension Take 1 Tablet (40 mg) by mouth once daily. 90 Tablet 3 4 Active levothyroxine (SYNTHROID) 125 mcg tabletIndications:Hypoth yroidism, unspecified type Take 1 Tablet (125 mcg) by mouth before breakfast. 90 Tablet 3 4 Active metoprolol tartrate (LOPRESSOR) 100 mg tabletIndications:Essent ial hypertension Take 1 Tablet (100 mg) by mouth two times daily. 180 Tablet 3 4 Active celecoxib (CELEBREX) 200 mg capsuleIndications:Osteo arthritis, unspecified osteoarthritis type, unspecified site Use once daily as needed for pain 90 Capsule 3 4 Active nitrofurantoin macrocrystals/monohydrat e (Macrobid) 100 mg capsuleIndications:Recur rent UTI Take 1 Capsule (100 mg) by mouth every 12 hours. Use dose before intercourse and dose after intercourse 12 hours after first dose 60 Capsule 4 Active Eliquis 5 mg tablet Take 5 mg by mouth two times daily. 4 Active nystatin powder (Nystop) powderIndications:Yeast infection of the skin Apply topically to affected area(s) one time if needed (Topical yeast infection). 15 g 3 4 Active rosuvastatin (CRESTOR) 10 mg tabletIndications:Pure hypercholesterolemia Take 1 Tablet (10 mg) by mouth at bedtime. 90 Tablet 3 4 Active dilTIAZem CD (CARDIZEM CD) 120 mg extended release 24 hr capsuleIndications:New onset atrial fibrillation (HC),Essential hypertension Take 1 Capsule (120 mg) by mouth once daily. 90 Capsule 3 4 Active nystatin powder (Nystop) powderIndications:Yeast infection of the skin Apply topically to affected area(s) one time if needed (Topical yeast infection). 15 g 3 3 024 Discontin ued(Reord er (E-cancel not sent)) nitrofurantoin macrocrystals/monohydrat e (Macrobid) 100 mg capsuleIndications:Recur rent UTI Take 1 Capsule (100 mg) by mouth every 12 hours. Use dose before intercourse and dose after intercourse 12 hours after first dose 60 Capsule 3 024 Discontin ued(Reord er (E-cancel not sent)) metoprolol tartrate (LOPRESSOR) 100 mg tabletIndications:Essent ial hypertension Take 1 Tablet (100 mg) by mouth two times daily. 180 Tablet 3 3 024 Discontin ued(Reord er (E-cancel not sent)) levothyroxine (SYNTHROID) 125 mcg tabletIndications:Hypoth yroidism, unspecified type Take 1 Tablet (125 mcg) by mouth before breakfast. 90 Tablet 3 3 024 Discontin ued(Reord er (E-cancel not sent)) pantoprazole (PROTONIX) 40 mg delayed-release tabletIndications:Gastro esophageal reflux disease, unspecified whether esophagitis present Take 1 Tablet (40 mg) by mouth once daily. 90 Tablet 3 3 024 Discontin ued(Reord er (E-cancel not sent)) amLODIPine (NORVASC) 5 mg tabletIndications:Essent ial hypertension Take 1 Tablet (5 mg) by mouth once daily. 90 Tablet 3 3 024 Discontin ued(Reord er (E-cancel not sent)) simvastatin (ZOCOR) 10 mg tabletIndications:Pure hypercholesterolemia Take 1 Tablet (10 mg) by mouth at bedtime. 90 Tablet 3 3 024 Discontin ued(Reord er (E-cancel not sent)) semaglutide (Rybelsus) 14 mg tabletIndications:Type 2 diabetes mellitus without complication, without long-term current use of insulin (HC) Take 14 mg by mouth once daily before a meal. 30 Tablet 6 4 024 Discontin ued(Reord er (E-cancel not sent)) celecoxib (CELEBREX) 200 mg capsuleIndications:Osteo arthritis, unspecified osteoarthritis type, unspecified site Take 1 Capsule (200 mg) by mouth once daily with a meal. 90 Capsule 4 024 Discontin ued(Reord er (E-cancel not sent)) metFORMIN (GLUCOPHAGE XR) 750 mg Extended-Release tabletIndications:Type 2 diabetes mellitus without complication, without long-term current use of insulin (HC) Take 1 Tablet (750 mg) by mouth once daily. 90 Tablet 4 024 Discontin ued(Reord er (E-cancel not sent)) lisinopriL (PRINIVIL; ZESTRIL) 40 mg tabletIndications:Essent ial hypertension Take 1 Tablet (40 mg) by mouth once daily. 30 Tablet 4 024 Discontin ued(Reord er (E-cancel not sent)) amLODIPine (NORVASC) 5 mg tabletIndications:Essent ial hypertension Take 1 Tablet (5 mg) by mouth once daily. 90 Tablet 3 4 024 Discontin ued(*Med complete/ Regimen complete/ Level of care change) simvastatin (ZOCOR) 10 mg tabletIndications:Pure hypercholesterolemia Take 1 Tablet (10 mg) by mouth at bedtime. 90 Tablet 3 4 024 Discontin ued(*Medi cation adjustmen t) Active Problems Problem Noted Date Diagnosed Date New onset atrial fibrillation 09/02/2023 Diabetes mellitus type 2, un controlled, without [...] Encounters Date Type Department Care Team Description 09/10/2023 10:10 AM CDT Preop Visit [facility] [address] [place] [address] Joann Brown, Preoperative Exam (09/30/23 - R total knee - [facility] - Dr. Javier) 09/10/2023 8:30 AM CDT Office Visit [facility] - [address] [place] [id number] Ayleen Berrios MD Consult (Initial Office Consult/Recent ECHO and Holter /New onset atrial fibrillation/PT states feeling pretty good./Discuss labs.) 09/10/2023 Travel 09/08/2023 9:00 AM CDT Ancillary Procedure [facility] [address] [facility] [address] [place] [address] 09/08/2023 Travel 09/06/2023 Travel 09/03/2023 Telephone [facility] [address] [place] [address] Kennqra Joann Arianna, DO Imaging 09/03/2023 Telephone [facility] [address] [place] [address] Kennqra Joann Arianna, DO 09/01/2023 3:25 PM CDT Office Visit [facility] [address] [place] [address] Kennqra Joann Arianna, DO Preoperative Exam (09/16/23 - R total knee - [facility] - Dr. Javier); Diabetes (6 month check); Hospital F/U 09/01/2023 9:45 AM CDT Office Visit [facility] [address] [place] [address] Dr Hart [address] [place] [id number] 09/01/2023 Travel 08/09/2023 Telephone [facility] [address] [place], [place] [id number] Danay Latham MD 08/08/2023 Orders Only [facility] Scanner 1 scan: (1-Ord) ABNORMAL ECG, 08/08/2023 08/08/2023 [facility]ill [facility] [address] [place] [address] Kennqra Joann Arianna, DO Refill Request (Lisinopril) 07/29/2023 Telephone [facility] [address] [place] [address] Kevinra Joann Arianna, DO Medication Management 07/26/2023 Telephone [facility] [address] [place] [address] Kennqra Joann Arianna, DO Refill Request 07/12/2023 Refill [facility] [address] [place] [address] Kennqra Joann Arianna, DO Refill Request (Lisinopril, Celebrex) 07/02/2023 Refill [facility] [address] [place] [address] Kennqra Joann Arianna, DO Refill Request (LISINOPRIL) from Last 3 Months Immunizations Name Administration Dates Next Due COVID-19 Vaccine Spikevax (M oderna 50mcg/0.5mL) 12YO+ [id number] Formula PF 01/22/2023 COVID-19 vaccine (Miscota-Bio NTech 30mcg/0.3mL) 12YO+ BIVALENT PF, MDV 05/07/2022 COVID-19 vaccine (Pfizer-Bio NTech 30mcg/0.3mL) 12YO+ BRUCE-SUCROSE PF, MDV 07/10/2021 COVID-19 vaccine (Pfizer-Bio NTech 30mcg/0.3mL) PF, MDV 07/10/2021,12/16/2020,04/02/2020,2019 Hepatitis B (Adult) 07/13/2022 Influenza A (H1N1), Live Intranasal 01/17/2014 Influenza RIV4 (Age 18+ Year s) PRESERV FREE 12/21/2018 Influenza, IIV3 (Age 6-35 mos) 12/27/2019 Influenza, IIV3 (Age >=3 years) 12/31/19 18,12/03/2015,01/03/2013,2007 Influenza, IIV4 01/22/2023,,01/06/2017,2015 Influenza, IIV4 (=>6mos) MDV 12/18/2020,12/27/19 20,12/26/2016 Influenza, Intradermal Inactivated 01/03/2015 Pneumococcal Conj 20-valent (Prevnar 20) 07/13/2022 Pneumococcal Poly,23-Valent (Pneumovax) 03/30/2019,06/11/2000 Td (Age >=7 Years) 01/16/1998,12/20/1997, 988 Tdap 07/13/2022,12/23/2011,02/14/2007 Zoster (Shingrix-RZV, recombinant) 05/19/2021, Family [...] Outcome GA Total Labor Labor/2nd/3rd Weight Sex Type Anes PTL Arianna A1 A5 Name Clin Term Term Last Filed Vital Signs Vital Sign Reading Time Taken Comments Blood Pressure 134/80 09/10/2023 10:26 AM CDT Pulse 93 09/10/2023 10:26 AM CDT Temperature 36.7 ??C (98.1 ??F) 09/27/2021 1 2:06 PM CDT Respiratory Rate 20 10/29/2021 2:30 PM CDT Oxygen Saturation 97% 09/10/2023 10: 26 AM CDT Inhaled Oxygen Concentration - - Weight 151.1 kg (333 lb 3.2 oz) 024 10:26 AM CDT Height 172.7 cm (5' 8) 09/10/2023 8:29 AM CDT Body Mass Index 50.66 09/10/2023 8:29 AM CDT Plan of Treatment Upcoming Encounters Date Type Department Care Team (Late st Contact Info) Description 01/05/2024 3:00 PM CDT Office Visit [facility] [address] [place] [address] Sebastien Rodriguez MD [address] [place] [address] Health Maintenance Due Date Last Done Comments Mammogram for age 45-75 10/03/2021 10/04/19, 10/03/2019, 06/03/2018, Additional history exists Depression screening for age 12+ 05/19/2022 05/19/2021, 04/15/2020, 07/24/2019, Additional history exists Hepatitis B series for Diabe sherif (2 of 3 - 19+ 3-dose series) 08/10/2022 07/13/2022 Influenza for age 50-64 11/21/2023 01/23/20 23, 12/17/2021, 12/18/2020, Additional history exists BMI (ht and wt on same day) for age 18+ 09/09/2024 09/10/2023, 09/01/2023, 02/10/2023, Additional history exists Pap test for age 21-65 04/15/2025 , 04/15/2020, 03/18/2017, Additional history exists Colonoscopy through age 75 12/29/2025 12/30/2015, Lipids for age 45-75 08/31/2028 09/01/2023, 07/13/2022, 02/17/2021, Additional history exists Tetanus booster 07/13/2032 07/13/2022, 05/2011, 02/14/2007, Additional history exists Hepatitis C screening for ag e 18-79 Completed 03/30/2019 Zoster (shingles) series for age 50+ Completed 05/19/2021, 03/30/2019 Pneumococcal series for age 6-64 Completed 07/13/2022, 03/30/2019, 06/11/2000 Tdap Completed 07/13/2022, 0 05/2011, 02/14/2007 COVID-19 vaccine series Completed 01/23/20, 05/07/2022, 07/10/2021, Additional history exists HIV for age 15-65 Completed 09/01/2023 Procedures Procedure Name Priority Date/Time Associated Diagnosis Comments EXTENDED HOLTER STAT 09/28/2023 New onset atrial fibrillation (HC) RED CELL MORPHOLOGY Routine 09/10/2023 11:17 AM CDT Pre-op evaluation PLATELET ESTIMATE Routine 09/10/2023 11: 17 AM CDT Pre-op evaluation HEMOGLOBIN Routine 09/10/2023 11:17 AM CDT Pre-op evaluation EKG 12 LEAD Today 09/10/2023 8:22 AM CDT New onset atrial fibrillation (HC) ECHO TTE COMPLETE WO CONTRAST ERIC 09/08/2023 9:24 AM CDT New onset atrial fibrillation (HC) BASIC METABOLIC PANEL Routine 09/01/2023 3:17 PM CDT Type 2 diabetes mellitus without complication, without long-term current use of insulin (HC) Unspecified essential hypertension LIPID PANEL W REFLEX MEASURED LDL Routine 09/01/2023 3:17 PM CDT Pure hypercholesterolemia TSH Routine 09/01/2023 3:17 PM CDT Hypothyroidism, unspecified type HEMOGLOBIN A1C Routine 09/01/2023 3:17 PM CDT Type 2 diabetes mellitus without complication, without long-term current use of insulin (HC) ANTI HIV 1/2 Routine 09/01/2023 3:17 PM CDT Screening for HIV (human immunodeficiency virus) SCAN-ELECTROCARDI OGRAM EKG 08/08/2023 12:00 AM CDT SCAN-MAMMOGRAPHY REPORT 10/03/2020 12:00 AM CDT ASSOCIATE PROFESSOR OF LIBRARY SCIENCE THIN PREP PAP SCREEN IMAGED Routine 04/15/2020 8:45 AM GLUE SPRAYER Pap smear for cervical cancer screening ANTI HCV Routine 03/30/2019 12:27 PM GLUE SPRAYER Need for hepatitis C screening test SCAN-COLONOSCOPY 12/30/2015 12:0 0 AM CDT from Last 3 Months or Most Recently Relevant to Health Maintenance Results * EXTENDED HOLTER (09/28/2023) Joann Brown DO CARDIAC SERVICES ORD * RED CELL MORPHOLOGY (09/10/2023 11:17 AM CDT) RBC COMMENT RBC morphology appears normal RBC morphology appears normal, RBC morphology within normal limits for newborns. 09/10/2023 12:19 PM CDT [facility] Blood BLOOD SPECIMEN / Unknown Venipuncture / Unknown 09/10/2023 11:17 AM CDT 09/10/2023 11:18 AM CDT Joann Brown DO HEMATOLOGY [facility] [address] [place] [address], [place] [phone] * PLATELET ESTIMATE (09/10/2023 11:17 AM CDT) PLATELET ESTIMATE Adequate Adequate, No estimate 09/10/2023 12:19 PM CDT [facility] Blood BLOOD SPECIMEN / Unknown Venipuncture / Unknown 09/10/2023 11:17 AM CDT 09/10/2023 11:18 AM CDT Joann Brown DO HEMATOLOGY [facility] [address] [place] [address], [place] [phone] * HEMOGLOBIN (09/10/2023 11:17 AM CDT) HEMOGLOBIN 13.1 12.0 - 16.0 g/dL 09/10/2023 12:19 PM CDT [facility] MCV 82 80 - 100 fL 09/10/2023 12:19 PM CDT [facility] Blood BLOOD SPECIMEN / Unknown Venipuncture / Unknown 09/10/2023 11:17 AM CDT 09/10/2023 11:18 AM CDT Joann Hawkq DO HEMATOLOGY [facility] [place] [address], * EKG 12 LEAD (09/10/2023 8:22 AM CDT) Interpretation Normal sinus rhythm Normal ECG No previous ECGs available Ventricular Rate 99 BPM Atrial Rate 99 BPM P-R Interval 172 ms QRS Duration 90 ms QT 350 ms QTc 449 ms P Alpine 68 degrees R Alpine 49 degrees T Alpine 48 degrees 09/10/2023 8:22 AM CDT 09/22/2023 1:11 PM CDT Ayleen Berrios MD EKG ORD * ECHO TTE COMPLETE WO CONTRAST (09/08/2023 9:24 AM CDT) AORTIC VALVE MEAN PG 5 mmHg EJECTION FRACTION 52 % LVEDD 4.8 cm EJECTION FRACTION 50 - 55% Anatomical Region Laterality Modality Ultrasound 09/08/2023 8:56 AM CDT Narrative 09/08/2023 9:45 AM CDT ECHOCARDIOGRAM FIDE WHITE ?Accession#: ?? [id number] : ?1965 58 years Study Date: ?? 09/08/2023 8:56:49 AM Gender: F ? BP: ? 147/88 mmHg Height: 173.00 cm ? BSA: ?2.53 m? ? ? Weight: 150.00 kg ? Tech: ? [facility] ?Referring MD: JOANN BROWN Site: ? [facility] Reading Location: MOBILE OP Patient Location: Outpatient. Procedure: 2D, Color Doppler and Spectral Doppler. Indication for study: AFIB Cardiac Rhythm: Normal sinus.Study quality: Fair. Final Impressions: 1. Normal left ventricular size, normal wall thickness, low normal global systolic function, calculated EF of 52 %. 2. Right ventricular cavity size is normal, global systolic RV function is normal. 3. Normal left atrium size. 4. The aortic valve is normal and trileaflet, no stenosis and no regurgitation. 5. The mitral valve is normal, no mitral regurgitation. 6. Tricuspid valve is normal. 7. No pericardial effusion. Chamber Sizes and Function Normal left ventricular size, normal wall thickness, low normal global systolic function, calculated EF of 52 %. Left atrial size is normal. Left atrial pressure is normal. Right ventricular cavity size is normal, global systolic RV function is normal. RV wall thickness is normal. The right atrium is normal. The pulmonary artery is of normal size and origin. The sinus of Valsalva is normal sized. The ascending aorta is normal sized. Valves, RV Pressures and Diastolic Function The aortic valve is normal in structure and trileaflet, no stenosis and no regurgitation. The mitral valve is normal in structure, no mitral regurgitation. Indeterminate pattern of LV diastolic filling. The tricuspid valve is normal in structure. Tricuspid regurgitation is regurgitation is not evident. The pulmonic valve is normal. No pulmonary regurgitation. Masses, Effusion, Shunts There is no pericardial effusion. The inferior vena cava is normal sized, respiratory size variation greater than 50%. No left to right shunting was detected by limited color flow Doppler interrogation of the interatrial septum. MEASUREMENTS AND CALCULATIONS 2-D Measurements and LV Function: LVID (d) 4.8 cm Planimetered EF 52 % LVID (s) 3.7 cm LV FS% (2D) ? 22 % IVS (d) ??0.9 cm LVOT diameter ?? 2.2 cm LVPW (d) 1.0 cm HR ?85 bpm Ao Sinus 3.2 cm LA Vol index ?24 ml/m2 ?RV Max 4C (d) ?? 4.1 cm Diastology: Mitral ?Tissue Doppler E Peak 0.7 m/s ??e', Septum ? 0.08 m/s A Peak 0.7 m/s ??e', Lateral ?0.08 m/s E/A ?1.0 ?E/e' Average ?? 8.69 DT ? 148 msec Aortic Valve: Vmax ? 1.3 m/s ??ROSARIO (V) ?? 3.47 cm? ? ? VTI ?0.32 m ?? ROSARIO (I) ?? 3.15 cm? ? ? LVOT V max 1.2 m/s ??Max PG ?7 mmHg LVOT VTI ?? 0.27 m ?? Mean PG ?? 5 mmHg SV ? 102 ml ?? Dim Index 0.84 SV index ?? 40 ml/m? ? ? CO ?8.7 l/min ?CI ?3.4 l/min/m? ? ? Mitral Valve: MVA ?5.1 cm? ? ? MV P 1/2 43 msec . This study was interpreted by an [facility] accredited facility. ??Final ?? Procedure Note Meeta Dodd, [facility] - 09/08/2023 ECHOCARDIOGRAM FIDE HWITE : 1965 58 years Study Date: 09/08/2023 8:56:49 AM Gender: F BP: 147/88 mmHg Height: 173.00 cm BSA: 2.53 m? ? ? Weight: 150.00 kg Tech: [facility] Referring MD: JOANN BROWN Site: [facility] Reading Location: MOBILE OP Patient Location: Outpatient. Procedure: 2D, Color Doppler and Spectral Doppler. Indication for study: AFIB Cardiac Rhythm: Normal sinus.Study quality: Fair. Final Impressions: 1. Normal left ventricular size, normal wall thickness, low normal globalsystolic function, calculated EF of 52 %. 2. Right ventricular cavity size is normal, global systolic RV functionis normal. 3. Normal left atrium size. 4. The aortic valve is normal and trileaflet, no stenosis and noregurgitation. 5. The mitral valve is normal, no mitral regurgitation. 6. Tricuspid valve is normal. 7. No pericardial effusion. Chamber Sizes and Function Normal left ventricular size, normal wall thickness, low normal globalsystolic function, calculated EF of 52 %. Left atrial size is normal. Leftatrial pressure is normal. Right ventricular cavity size is normal, globalsystolic RV function is normal. RV wall thickness is normal. The rightatrium is normal. The pulmonary artery is of normal size and origin. Thesinus of Valsalva is normal sized. The ascending aorta is normal sized. Valves, RV Pressures and Diastolic Function The aortic valve is normal in structure and trileaflet, no stenosis and noregurgitation. The mitral valve is normal in structure, no mitralregurgitation. Indeterminate pattern of LV diastolic filling. Thetricuspid valve is normal in structure. Tricuspid regurgitation isregurgitation is not evident. The pulmonic valve is normal. No pulmonaryregurgitation. Masses, Effusion, Shunts There is no pericardial effusion. The inferior vena cava is normal sized,respiratory size variation greater than 50%. No left to right shunting wasdetected by limited color flow Doppler interrogation of the interatrialseptum. MEASUREMENTS AND CALCULATIONS 2-D Measurements and LV Function: LVID (d) 4.8 cm Planimetered EF 52 % LVID (s) 3.7 cm LV FS% (2D) 22 % IVS (d) 0.9 cm LVOT diameter 2.2 cm LVPW (d) 1.0 cm HR 85 bpm Ao Sinus 3.2 cm LA Vol index 24 ml/m2 RV Max 4C (d) 4.1 cm Diastology: Mitral Tissue Doppler E Peak 0.7 m/s e', Septum 0.08 m/s A Peak 0.7 m/s e', Lateral 0.08 m/s E/A 1.0 E/e' Average 8.69 DT 148 msec Aortic Valve: Vmax 1.3 m/s ROSARIO (V) 3.47 cm? ? ? VTI 0.32 m ROSARIO (I) 3.15 cm? ? ? LVOT V max 1.2 m/s Max PG 7 mmHg LVOT VTI 0.27 m Mean PG 5 mmHg SV 102 ml Dim Index 0.84 SV index 40 ml/m? ? ? CO 8.7 l/min CI 3.4 l/min/m? ? ? Mitral Valve: MVA 5.1 cm? ? ? MV P 1/2 43 msec . This study was interpreted by an [facility] accredited facility. Final Joann Brown DO ECHO ORD * (ABNORMAL) LIPID PANEL W REFLEX MEASURED LDL (09/01/2023 3:17 PM CDT) CHOLESTEROL,TOTAL 264(H) 100 - 199 mg/dL 09/01/2023 11:47 PM T [facility] Comment: Cholesterol, Total Reference Ranges Desirable <200 mg/dL Borderline 200-239 mg/dL High >=240 mg/dL TRIGLYCERIDES 156(H) <150 mg/dL 09/01/2023 11:47 PM CDT [facility] HDL CHOLESTEROL 73 >40 mg/dL 11:47 PM T [facility] NON-HDL CHOLESTEROL 191(H) <145 mg/dl 09/01/2023 11:47 PM CDT [facility] CHOL/HDL RATIO 3.62 <4.50 09/01/2023 11:47 PM CDT [facility] LDL CHOLESTEROL 160(H) <=130 mg/dL 09/01/2023 11:47 PM T [facility] VLDL CHOLESTEROL 31(H) <=30 mg/dL 09/01/2023 11:47 PM T [facility] PROVIDER ORDERED STATUS RANDOM 09/01/2023 11:47 PM T [facility] Blood BLOOD SPECIMEN / Unknown Venipuncture / Unknown 09/01/2023 3:17 PM CDT 09/01/2023 3:19 PM CDT Joann Brown DO CHEMISTRY Performing Organization Address [facility] Co de Phone Number [facility] [address] [place] [phone], [place] * TSH (09/01/2023 3:17 PM CDT) TSH 2.28 0.27 - 4.20 uIU/mL 09/01/2023 11:47 PM CDT [facility] Blood BLOOD SPECIMEN / Unknown Venipuncture / Unknown 09/01/2023 3:17 PM CDT 09/01/2023 3:19 PM CDT Narrative [facility] - 09/01/2023 11:47 PM CDT In Adults, TSH values between 5.00 and 10.00 uIU/ml do not necessarily indicate the presence of Hypothyroidism. Correlation with clinical findings such as presence of goiter and/or Thyroperoxidase (TPO) Antibody may be helpful. For more information please refer to FRANCHESKA 2004; 291: 228-238. Joann Brown DO CHEMISTRY Performing Organization Address [facility] Co de Phone Number [facility] [address] [place] [address], [place] * ANTI HIV 1/2 [96071.0] (09/01/2023 3:17 PM CDT) HIV-1/HIV-2 SCREEN Non-Reacti ve Non-Reacti ve 09/01/2023 11:34 PM CDT [facility] Comment:HIV-1 p24 and HIV-1/ HIV-2 Ab Not Detected. Blood BLOOD SPECIMEN / Unknown Venipuncture / Unknown 09/01/2023 3:17 PM CDT 09/01/2023 3:19 PM CDT Joann Brown DO SEND OUTS Performing Organization Address City/[facility]/ZIP Co de Phone Number [facility] [address] [place] [address], * (ABNORMAL) HEMOGLOBIN A1C MONITORING (POCT) (09/01/2023 3:17 PM CDT) [facility] HEMOGLOBIN A1C MONITORING (POCT) 6.8(H) <=6.4 % 09/01/2023 3:33 PM CDT [facility] Blood BLOOD SPECIMEN / Unknown Venipuncture / Unknown 09/01/2023 3:17 PM CDT 09/01/2023 3:19 PM CDT Narrative [facility] - 09/01/2023 3:33 PM CDT ? (<=6.9%) ? Indicates good control ? (7.0% to 7.9%) ? Indicates fair control ? (>=8.0%) ? Indicates poor control ?? NOTE: ??These thresholds are guidelines and ?individual targets may vary. Falsely low levels may be seen with: Recent Transfusion, Recent Significant Blood Loss, Hemolytic Diseases, or Falsely elevated levels may be seen with: Untreated Anemias, Splenectomy ? Joann Brown DO CHEMISTRY [facility] [address] [place] [address], [place] [phone] * (ABNORMAL) BASIC METABOLIC PANEL (09/01/2023 3:17 PM CDT) [facility] SODIUM 140 136 - 145 mmol/L 09/01/2023 11:47 PM CDT [facility] POTASSIUM 4.2 3.5 - 5.1 mmol/L 09/01/2023 11:47 PM CDT [facility] CHLORIDE 100 98 - 107 mmol/L 09/01/2023 11:47 PM CDT [facility] CO2,TOTAL 24 22 - 29 mmol/L 09/01/2023 11:47 PM CDT [facility] ANION GAP 16 5 - 18 09/01/2023 11:47 PM CDT [facility] GLUCOSE 100(H) 70 - 99 mg/dL 09/01/2023 11:47 PM CDT [facility] CALCIUM 9.9 8.6 - 10.0 mg/dL 09/01/2023 11:47 PM CDT [facility] BUN 10 6 - 20 mg/dL 09/01/2023 11:47 PM CDT [facility] CREATININE 0.77 0.50 - 0.90 mg/dL 09/01/2023 11:47 PM CDT [facility] BUN/CREAT RATIO 13 10 - 20 11:47 PM CDT [facility] eGFR 89(L) >90 mL/min/1.7 3m2 09/01/2023 11:47 PM CDT [facility] Comment:As of 2021, eG FR is calculated by the CKD-EPI creatinine equation without race adjustment. ??eGFR can be influenced by muscle mass, exercise, and diet. ??The reported eGFR is an estimation only and is only applicable if the renal function is stable. Blood BLOOD SPECIMEN / Unknown Venipuncture / Unknown 09/01/2023 3:17 PM CDT 09/01/2023 3:19 PM CDT Joann Brown DO CHEMISTRY [facility] [address] [place] [id number], * SCAN-ELECTROCARDIOGRAM EKG (08/08/2023 12:00 AM CDT) Scanner OTHER * SCAN-MAMMOGRAPHY REPORT (10/03/2020 12:00 AM CDT) Anatomical Region Laterality Modality Other Scanner OTHER * ASSOCIATE PROFESSOR OF LIBRARY SCIENCE THIN PREP PAP SCREEN IMAGED [[id number]] (04/15/2020 8:45 AM GLUE SPRAYER) Case Report Gynecologic Cytology Report ? Case: [id number] ? Authorizing Provider: ??Sherrie Doyle MD ? Collected: ? 04/15/2020 0845 ? Ordering Location: ? [facility] ?? Received: ?04/15/2020 1020 ? Clinic ? First Screen: ?Giselle Alexandra ? Specimen: ?ASSOCIATE PROFESSOR OF LIBRARY SCIENCE ThinPrep Vial Screening, Cervical ? 04/23/2020 2:58 PM GLUE SPRAYER [employer] LABORATORY-C ENTRAL LABORATORY INTERPRETATION/ RESULT NEGATIVE FOR INTRAEPITHELIAL LESION OR MALIGNANCY (NIL) (none) 04/23/2020 2:58 PM GLUE SPRAYER [employer] [facility]AL LABORATORY IMEN ADEQUACY Satisfactory for evaluation Endocervical component present 04/23/2020 2:58 PM GLUE SPRAYER [facility] HPV REQUEST HPV and PAP 04/23/2020 2:58 PM GLUE SPRAYER [facility] Date of LMP uncertain 04/23/2020 2:58 PM GLUE SPRAYER [facility] Last Pap Date 03/18/17 04/23/2020 2:58 PM GLUE SPRAYER [facility] Last Pap Result NIL 2:58 PM GLUE SPRAYER [facility] Abnormal Pap or [place] Bx in last 5 years No 04/23/2020 2:58 PM GLUE SPRAYER [facility] Menstrual Status Postmenopausal 04/23/2020 2:58 PM [facility] [place] Bx Done Today No 04/23/2020 2:58 PM GLUE SPRAYER [facility] Additional Information None given 04/23/2020 2:58 PM GLUE SPRAYER [facility] Comment: Cytology is screened at [facility] - [address], [place] [address] and [facility] - [address] [place] [address] and [facility] - [address] [place] [address] Interpreted at [facility] - [address], [place] [address] Automated Review Successful 04/23/2020 2:58 PM GLUE SPRAYER [facility]ATORY Comment:Specimen processed s uccessfully by automated jointer operator device, ThinPrep Imaging System, [employer] ANCILLARY TESTING ASSOCIATE PROFESSOR OF LIBRARY SCIENCE HPV Ordered, Please see separate report 04/23/2020 2:[address] [facility] Note The pap test is a screening technique, not a diagnostic procedure. It is used primarily to screen for squamous cancers and precursor lesions. Published studies have shown that it is subject to both false negative and false positive results. The pap test should not be used as the sole means to diagnose or exclude pre-malignant and malignant lesions. 04/23/2020 2:58 PM GLUE SPRAYER [facility] Other (Cervical) Non-Blood / Unknown 04/15/2020 8:45 AM GLUE SPRAYER 04/15/2020 10:20 AM GLUE SPRAYER Sherrie Doyle MD PATHOLOGY/CYTOLOGY [facility] [address] [place] [address], [place] * ANTI HCV (03/30/2019 12:27 PM GLUE SPRAYER) HEPATITIS C ANTIBODY Non-React chiquita Non-React chiquita 03/30/2019 7:09 PM GLUE SPRAYER [facility] Comment:Antibodies to HCV no t detected; does not exclude the possibility of exposure to HCV. Blood BLOOD SPECIMEN / Unknown Butterfly / Unknown 03/30/2019 12:27 PM GLUE SPRAYER 03/30/2019 12:27 PM GLUE SPRAYER Sherrie Doyle MD SEND OUTS Performing Organization Address [facility]/ZIP Co de Phone Number [facility] [address] [place] [address], [place] * SCAN-COLONOSCOPY (12/30/2015 12:00 AM CDT) Scanner OTHER from Last 3 Months or Most Recently Relevant to Health Maintenance Care Teams Credit Front Office Developer Relationship Specialty Start Date End [place] [id number] PCP - General Family Practice 07/13/22
[2023-09-30] MEDS: SODIUM CHLORIDE 0.9 % (FLUSH) 10 ML SYRINGE IVF (10:01)
--- NOTE | 2023-09-30 10:49 | SUR.PREOP ---
TIME?OUT:?1040 right total knee PT/RN/MDA?VERIFICATION?OF?SURGICAL?SITE,?PROCEDURE,?AND?CONSENT OBTAINED?PRIOR?TO?INVASIVE?PROCEDURE. miriam Garrett mda
[2023-09-30] MEDS: CEFAZOLIN 1 GM inj 3 GM IVP (11:12)
--- NOTE | 2023-09-30 11:13 | P.NB_ITS ---
Nerve Block Nerve Block Time Seen by Provider: 10:45 Date Seen: 09/30/23 Type of block requested by surgeon for post-operative analgesia: adductor canal Side: right Time out performed: Yes Verification of patient name: Yes Verification of date of : Yes Site marking: site marked Name of person performing procedure: Gerry Continuous monitoring Was continuous monitoring of O2 sat, B/P, superintendent track, recorded every 15 minutes?: Yes Procedure Checklist: sterile prep, needles and gloves Ultrasound guided. Images saved: Yes Medications given in 5ml increments after negative aspiration: Ropivicaine %: 0.5 mL: 20 Needle gauge: 20 Decadron (mg): 10 Precedex (mcg): 25 Patient tolerated procedure well: Yes Additional comments: Needle noted adjacent to nerve Block Charges Block Charge (with Pro Fee): Femoral Nerve Use of Ultrasound Machine for Block: Yes- US Guidance/pain block
--- NOTE | 2023-09-30 11:14 | P.NB_ITS ---
Nerve Block Nerve Block Time Seen by Provider: 10:12 Date Seen: 09/30/23 Type of block requested by surgeon for post-operative analgesia: geniculars Side: right Time out performed: Yes Verification of patient name: Yes Verification of date of : Yes Site marking: site marked Name of person performing procedure: Gerry Continuous monitoring Was continuous monitoring of O2 sat, B/P, quantitative associate, recorded every 15 minutes?: Yes Procedure Checklist: sterile prep, needles and gloves Medications given in 5ml increments after negative aspiration: Ropivicaine %: 0.5 mL: 9 Needle gauge: 25 Patient tolerated procedure well: Yes Block Charges Block Charge (with Pro Fee): Genicular Nerve Block Use of Ultrasound Machine for Block: No
--- NOTE | 2023-09-30 11:14 | W.ANESCHARGE ---
Anesthesia Charges Start Date/Time Anesthesia Start Date: 09/30/23 Anesthesia Start Time: 10:57 Stop Date/Time Anesthesia Stop Date: 09/30/23 Anesthesia Stop Time: 13:35
[2023-09-30] MEDS: TRANEXAMIC ACID 100 MG/ML INJ 1000 MG IV (11:15)
--- NOTE | 2023-09-30 12:51 | CRLHL7_ITS ---
For Patients: As a result of the Century Cures Act, medical imaging exams and procedure reports are released immediately into your electronic medical record. You may view this report before your referring provider. If you have questions, please contact your health care provider. INDICATION: Postop TKA. TECHNIQUE: Two views of the right knee. FINDINGS: New right TKA. Components appear well seated. Adjacent postop soft tissue air. There is an oblique lucency overlying the proximal fibula on the lateral image, likely artifact. Dictated by Andi Awad MD @ 10/05/2023 8:17:23 AM (Electronically Signed)
--- NOTE | 2023-09-30 12:52 | PM.ORPRC ---
Procedure Note Date of procedure: 09/30/23 Procedure: PREOPERATIVE DIAGNOSIS: Right knee osteoarthritis POSTOPERATIVE DIAGNOSIS: Right knee osteoarthritis NAME OF OPERATION: Right total knee arthroplasty SURGEON: Houston Javier MD HOSPITALITY COORDINATOR: ELIZABETH Lara ANESTHESIA: Spinal ESTIMATED BLOOD LOSS: 0 mL COMPLICATIONS: None SPECIMENS: None DRAINS: None PREOPERATIVE ANTIBIOTICS: Ancef 3 grams, antibiotic impregnated cement IMPLANTS: 1. J&J Attune revision CRS # 5 posterior stabilized femur, with a 14 mm x 50 mm cemented stem 2. # 5 revision CRS fixed-bearing tibia, with a 14 mm x 50 mm cemented stem 3. # 5 posterior stabilized, 5 mm fixed-bearing polyethylene 4. 41 patella INDICATIONS: The patient is a 58-year-old with a longstanding history of severe, unrelenting right knee pain secondary to end-stage (grade IV) right knee osteoarthritis. Despite appropriate nonoperative management, including activity modification, anti-inflammatories, [id number]-ofowkja pain medication, bracing, physical therapy, and injections they continue to have pain and disability. Operative intervention was offered. The risks, benefits and expected outcomes were discussed in detail. These included but were not limited to: Infection, bleeding, injury to blood vessel or nerve, venous thromboembolism. All questions were answered to their satisfaction. Use of an assistant professor of german was necessary throughout the case for patient positioning and safety, soft tissue retraction, and closure. A modifier 22 should be added to this case. The patient's weight of 150 kg with a BMI of 50 and a 40 mm layer of subcutaneous fat over the extensor mechanism made the exposure difficult. For these reasons we elected to use stemmed components, to reduce the risk of aseptic loosening.. These factors added time and cost to complete the case. PROCEDURE: Spinal anesthesia was administered. The patient was placed supine on the operating table. The assistant professor of german made sure the patient was positioned appropriately. The lower extremity was prepped and draped in the usual sterile fashion. The limb was exsanguinated with the Neville bandage. The pneumatic tourniquet was inflated to 300 mmHg. A standard anterior incision was made with the knee in flexion. Subcutaneous dissection was sharply taken through fascial layer #1. Full-thickness medial and lateral flaps were elevated. The assistant professor of german retracted the soft tissues and protected them throughout the case. A standard subvastus approach was made. The patella was everted. The infrapatellar fat pad was debrided. The menisci and cruciate ligaments were sharply d?brided. Marginal osteophytes were d?brided with the rongeur. The drill was used to penetrate the femoral canal. The canal was aspirated and irrigated with pulse lavage. The intramedullary femoral guide was placed for a 5-degree valgus cut, removing 10 mm off the distal femur. The saw was used to make the cut. Whitesides line and the trans epicondylar axis were marked. The femoral sizing guide was pinned onto the distal femur. Three degrees of external rotation nicely parallels the transepicondylar axis. Pins were placed for posterior referencing. The four-in-one cutting guide was pinned onto the distal femur. The anterior, posterior, and chamfer cuts were made. The assistant professor of german protected the collateral ligaments. The revision trial was placed. The box cuts were made. The drill was used x2. The stemmed, boxed trial was placed and was an excellent fit. Attention was then turned to the proximal tibia. The extramedullary tibial guide was placed for a neutral varus/valgus cut with 5 degrees of posterior slope, removing 2 mm based off the medial tibial surface. The assistant professor of german protected the collateral ligaments and the neurovascular bundle. The saw was used to make the cut. Trial components were placed. The knee was nicely balanced in both flexion and extension. The trial components were removed. The tray was placed in appropriate rotation, parallel to our tibial cutting pins. It was pinned by the assistant professor of german and the drill x2 was used. The stemmed tibial trial was placed. The punch was used. The tray was removed. The punch was used again. Attention was then turned to the patella. [place] patellar thickness was 24 mm. The lobster claw resection guide was used with the 9.5 mm lázaro. The saw was used to make the cut. Drill holes were made by the assistant professor of german. The trial was placed and was an excellent fit. Cancellous surfaces were irrigated with pulse lavage and thoroughly dried by the assistant professor of german. We cemented the tibial component, then the femoral component. We impacted the 5 mm polyethylene onto the tibial tray. The knee was brought into full extension. We then cemented the patellar component. Excessive cement was removed. The cement was allowed to harden. The knee was taken through a range of motion and was found to be nicely balanced in both flexion and extension. The patella tracks centrally. The assistant professor of german did a three minute dilute Betadine solution soak. The assistant professor of german irrigated the wound with 3 liters of normal saline via pulse lavage. The assistant professor of german reapproximated the extensor mechanism with #1 Vicryl in an interrupted [id number] fashion. The assistant professor of german then ran the extensor mechanism with a #1 PDO Stratafix. The assistant professor of german closed the subcutaneous tissues with a 3-0 Stratafix and the skin with a running 3-0 Stratafix in a subcuticular fashion. Glue was used to seal the skin. The assistant professor of german placed a dry dressing. Sponge and needle counts were correct x2. The patient tolerated the procedure well. There were no apparent complications. They were carefully transferred to the hospital bed and taken to the postanesthesia care unit in satisfactory condition. PLAN: The patient will be mobilized with physical therapy. Her usual dose Eliquis can be restarted. They will be discharged to home once medically appropriate.
--- NOTE | 2023-09-30 13:39 | W.ANESCHARGE ---
Anesthesia Charges Start Date/Time Anesthesia Start Date: 09/30/23 Anesthesia Start Time: 10:57 Stop Date/Time Anesthesia Stop Date: 09/30/23 Anesthesia Stop Time: 13:35
[2023-09-30] MEDS: LACTATED RINGERS 1000 ML 1,000 ML 75 ML IV (14:13)
--- NOTE | 2023-09-30 15:54 | P.IMCN_ITS ---
Date of Consult Patient: Quin Patient Consult date: 09/30/23 Requesting Physician: Orthopedics Primary Care Provider: Joann Brown DO Consult Narrative Narrative: Fide Millan is a 58 year old female with hypertension, obesity, sleep apnea, new AFib seen after right knee arthroplasty performed today. She has seen in consultation for management of medical problems. There were no operative complications. Procedures performed by Dr. Javier who requests consultation. She reports feeling well after surgery. She is not having significant pain. No dyspnea or nausea. Other than knee pain she reports feeling well when she came to the hospital today. She had preop evaluation in the clinic. On September 09 she saw primary care physician as well as Cardiology regarding her new onset AFib. She was diagnosed with atrial fibrillation with rapid ventricular response on Aug 08 2023 in our emergency department. She underwent successful cardioversion at that time. Since then she has been on apixaban 5 mg b.i.d. for stroke prophylaxis. She is not aware of any recurrence of her AFib. Echocardiogram obtained on September 07 showed normal LV size with an ejection fraction of 52%. Right ventricular size and function was normal. No significant valvular disease. Vp Of Customer Experience Strategy as started her on diltiazem 120 mg daily as well as rosuvastatin 10 mg daily. She has chronically been on metoprolol 100 mg twice daily as well. Review of Systems Narrative: She reports no new health problems or concerns. [facility] Medical History (Updated 09/30/23 @ 19:36 by Joshua Hickey MD) Obstructive sleep apnea ?G47.33 - Obstructive sleep apnea (adult) (pediatric) (ICD-10) Chronic osteoarthritis (10/04/12) ?M19.90 - Unspecified osteoarthritis, unspecified site (ICD-10) Gastroesophageal reflux (10/04/12) ?K21.9 - Gastro-esophageal reflux disease without esophagitis (ICD-10) Generalized anxiety disorder ?F41.1 - Generalized anxiety disorder (ICD-10) Hyperlipidemia (10/04/12) ?E78.5 - Hyperlipidemia, unspecified (ICD-10) Hypothyroidism (10/04/12) ?E03.9 - Hypothyroidism, unspecified (ICD-10) Primary hypertension (10/04/12) ?I10 - Essential (primary) hypertension (ICD-10) Type 2 diabetes mellitus ?E11.9 - Type 2 diabetes mellitus without complications (ICD-10) Dupuytren's contracture of left hand ?M72.0 - Palmar fascial fibromatosis [Dupuytren] (ICD-10) Left carpal tunnel syndrome ?G56.02 - Carpal tunnel syndrome, left upper limb (ICD-10) New onset atrial fibrillation (09/02/23) ?I48.91 - Unspecified atrial fibrillation (ICD-10) Surgical History (Updated 09/30/23 @ 19:36 by Joshua Hickey MD) S/P total knee arthroplasty ?Z96.659 - Presence of unspecified artificial knee joint (ICD-10) Hx of cholecystectomy ?Z90.49 - Acquired absence of other specified parts of digestive tract (ICD- 10) H/O section ?Z98.891 - History of uterine scar from previous surgery (ICD-10) History of arthroscopy of right knee (11/07/08) ?Z98.890 - Other specified postprocedural states (ICD-10) History of hysteroscopy (01/26/11) ?Z98.890 - Other specified postprocedural states (ICD-10) History of arthroscopy of left shoulder (10/12/12) ?Z98.890 - Other specified postprocedural states (ICD-10) History of arthroscopy of left knee (05/17/14) ?Z98.890 - Other specified postprocedural states (ICD-10) History of arthroscopy of right shoulder (02/21/15) ?Z98.890 - Other specified postprocedural states (ICD-10) Family History Sister Atrial fibrillation Father Lung cancer High blood pressure Social History What is your current living situation?: I presently have a place to live Problems where you live: declined to answer In past 12 months, lack of transportation kept you from medical appts, meetings, work, or getting things needed for daily living: no In the past 12 mos, have been you worried that your food would run out before you had money to buy more?: never true In the past 12 mos, the food you bought just didn't last and you didn't have money to buy more?: never true Highest level of school completed/degree received: decline to answer Smoking Status: Never smoker Do you use any of these nicotine containing products: None How often do you have a drink containing alcohol: monthly or less Alcohol type: beer How many standard drinks containing alcohol do you have on a typical day: 1 or 2 How often do you have six or more drinks on one occasion: Never AUDIT-C Alcohol total score: 1 Non-prescribed substance use: denies use Caffeine: Yes How often does anyone, including family, friends and others, physically hurt you : never How often does anyone, including family, friends and others, insult or talk down to you: never How often does anyone, including family, friends and others, threaten you with harm: never How often does anyone, including family, friends and others, scream or curse at you: never service: No Meds Home Medications and Allergies Home Medications ?Medication ?Instructions ?Recorded ?Confirmed ?Type blood sugar diagnostic (Contour #10 ea 12/15/21 08/02/23 History Next Test Strips) blood-glucose meter (Contour Next #1 ea 12/15/21 08/02/23 History Meter) lancets (Microlet Lancet) #100 ea 12/15/21 08/02/23 History levothyroxine 125 mcg tablet 125 mcg PO DAILY 12/15/21 09/30/23 History lisinopril 40 mg tablet 40 mg PO DAILY 12/15/21 09/30/23 History metoprolol tartrate 100 mg tablet 100 mg PO BID 12/15/21 09/30/23 History metformin 750 mg tablet,extended 750 mg PO DAILY 11/03/22 09/30/23 History release 24 hr celecoxib 200 mg capsule 200 mg PO DAILY PRN 09/21/23 09/30/23 History diltiazem HCl 120 mg 120 mg PO DAILY 09/21/23 09/30/23 History capsule,extended release 24 hr lorazepam 1 mg tablet 1 mg PO HS PRN 09/21/23 09/30/23 History nitrofurantoin 100 mg PO Q12H PRN 09/21/23 09/30/23 History monohydrate/macrocrystals 100 mg capsule (Macrobid) nystatin 100,000 unit/gram topical 1 applic topical DAILY PRN 09/21/23 09/30/23 History powder (Nystop) pantoprazole 40 mg tablet,delayed 40 mg PO DAILY 09/21/23 09/30/23 History release rosuvastatin 10 mg tablet 10 mg PO HS 09/21/23 09/30/23 History semaglutide 14 mg tablet (Rybelsus) 14 mg PO DAILY 09/21/23 09/30/23 History Allergies Allergy/AdvReac Type Severity Reaction Status Date / Time No Known Drug Allergies Allergy Verified 09/30/23 09:12 Exam Narrative: Exam Narrative: She is alert and appears in no distress. Oropharynx with small airway. Neck is supple without mass or adenopathy. Respirations are clear to auscultation. Cardiovascular: S1, S2, regular rate and rhythm. No murmur gallop or rub. Abdomen: Bowel sounds active. Abdomen is soft without tenderness. Extremities with mild bilateral edema. Intact pulses and sensation and motion distally. Foot and ankle strength bilaterally normal. Const: Vital Signs, click to edit/add: Vital Signs - 24 hr 09/30/23 09:58 09/30/23 10:51 09/30/23 13:30 Temperature 97.2 F L 97.3 F L Pulse Rate 89 80 82 Respiratory Rate 18 18 20 Blood Pressure 145/71 H 124/60 95/55 L Pulse Oximetry 96 98 92 Oxygen Delivery Me thod Room Air Nasal Cannula Room Air Oxygen Flow Rate 3 09/30/23 13:35 09/30/23 13:40 09/30/23 13:45 Temperature 97.4 F L Pulse Rate 80 79 76 Respiratory Rate 18 20 20 Blood Pressure 94/58 L 96/68 96/62 Pulse Oximetry 99 99 99 Oxygen Delivery Me thod Nasal Cannula Nasal Cannula Nasal Cannula Oxygen Flow Rate 3 3 3 09/30/23 13:50 09/30/23 13:55 09/30/23 14:00 Temperature Pulse Rate 75 72 72 Respiratory Rate 18 16 18 Blood Pressure 118/57 L 116/81 109/81 Pulse Oximetry 99 98 98 Oxygen Delivery Me thod Nasal Cannula Nasal Cannula Nasal Cannula Oxygen Flow Rate 2 2 2 09/30/23 14:07 09/30/23 14:15 09/30/23 14:30 Temperature 97.4 F L 96.0 F L Pulse Rate 72 76 Respiratory Rate 16 16 16 Blood Pressure 112/69 125/55 L Pulse Oximetry 97 94 94 Oxygen Delivery Me thod Nasal Cannula Room Air Room Air Oxygen Flow Rate 2 2 09/30/23 14:39 09/30/23 14:46 09/30/23 15:00 Temperature Pulse Rate 76 77 77 Respiratory Rate 16 16 16 Blood Pressure 126/64 134/60 129/80 Pulse Oximetry 94 93 91 Oxygen Delivery Me thod Room Air Room Air Room Air Oxygen Flow Rate 2 09/30/23 15:00 09/30/23 15:31 09/30/23 15:31 Temperature Pulse Rate 76 Respiratory Rate 16 16 16 Blood Pressure 129/66 Pulse Oximetry 91 93 Oxygen Delivery Me thod Room Air Room Air Oxygen Flow Rate 2 Documenting provider has reviewed patient's vital signs: yes Assessment and Plan Assessment and plan (1) S/P total knee arthroplasty: Problem comment: Right knee arthroplasty, Dr. Javier, no complications Status: Acute (2) Obstructive sleep apnea: Problem comment: On home CPAP Status: Acute (3) Type 2 diabetes mellitus: Status: Acute (4) Primary hypertension: Problem comment: Continue home blood pressure medications as blood pressure allows Status: Acute Plan Admit for managing postoperative care for knee arthroplasty as well as chronic medical problems including sleep apnea, hypertension, AFib with RVR, anticoagulation, diabetes. Total Time Spent Total Time Spent: Total time spent today is 40 minutes in evaluation and management and discussion with patient and and other providers ongoing management postoperatively
[2023-09-30] MEDS: METFORMIN ER 500 MG 750 MG PO (17:15)
[2023-09-30] MEDS: CEFAZOLIN 3 GM in 0.9 % SODIUM CHLORIDE Mini-bag 100 ML IVPB (17:15)
[2023-09-30] MEDS: INSULIN ASPART 100 UNIT/ML SUBCUT ×2 (17:16→20:37)
[2023-09-30] MEDS: SENNOSIDES 1 TAB TABLET 2 TAB PO (20:36)
[2023-09-30] MEDS: OXYCODONE 5 MG TABLET PO (20:36)
[2023-09-30] MEDS: METOPROLOL TARTRATE 100 MG TABLET PO (20:36)
[2023-09-30] MEDS: ROSUVASTATIN CALCIUM 10 MG TABLET PO (20:37)
[2023-09-30] MEDS: hydrOXYzine pamoate 25 MG CAPSULE PO (22:18)
[2023-09-30] MEDS: LORazepam 1 MG TABLET PO (22:18)
[2023-10-01] MEDS: CEFAZOLIN 3 GM in 0.9 % SODIUM CHLORIDE Mini-bag 100 ML IVPB (01:36)
[2023-10-01] MEDS: OXYCODONE 5 MG TABLET PO ×3 (01:43→10:17)
[2023-10-01 03:00] VITALS: BP 105/44; PULSE 94; RESP 18; TEMP 36.4; O2SAT 94
[2023-10-01] MEDS: ACETAMINOPHEN 500 MG TABLET 1000 MG PO ×2 (03:13→10:14)
--- NOTE | 2023-10-01 05:59 | PC.NURSE ---
-: pleasant and cooperative. SBA w/ gb and walker, walked halls x 1, tolerating ambulation well. pt requested sleep aid, prn Ativan and Vistaril given - pt able to rest. prn oxy given for pain, offered relief. VSS. Dressing to surical site CDI, active ice on.
[2023-10-01] MEDS: LEVOTHYROXINE 125 MCG TABLET PO (06:27)
[2023-10-01] MEDS: OMEPRAZOLE 20 MG CAPSULE DR 40 MG PO (06:27)
[2023-10-01 06:41] LABS: Hematocrit 35.3 % (33.0-51.0); Immature Granulocytes Abs Auto 0.01 K/uL (0.00-0.30); Immature Granulocytes Pct Auto 0.1 %; Lymphocytes Percent Auto 11.2 % (20-44); Mean Corpuscular HGB Conc 31 gm/dL (32-36); Mean Corpuscular Hemoglobin 26 pg (26-34); Mean Corpuscular Volume 82 fL (80-100); Monocytes Percent Auto 7.4 % (0.0-11.0); Neutrophils Percent Auto 81.3 % (42.0-72.0); Platelet Count* 269 K/uL (140-440); RDW Coefficient of Variation % 14.4 % (11.5-15.5); Red Blood Count 4.32 m/uL (4.00-5.20); White Blood Count* 10.06 K/uL (4.50-11.00)
[2023-10-01 06:48] LABS: Slide Review Reflex No
[2023-10-01 06:58] LABS: Sodium* 135 mmol/L (135-149)
[2023-10-01 06:59] LABS: Potassium* 4.3 mmol/L (3.6-5.1)
[2023-10-01 07:01] LABS: INR 1.03 (0.91-1.10); Prothrombin Time 14.1 Seconds
[2023-10-01 07:02] LABS: Blood Urea Nitrogen* 12 mg/dL (7-30); Creatinine* 0.7 mg/dL (0.5-1.5); Est. Creatinine Clearance* 90.43; Estimated Glomerular Filt Rate 100 ml/min
[2023-10-01 07:15] VITALS: BP 140/74; PULSE 97; RESP 16; TEMP 37.3; O2SAT 96
[2023-10-01] MEDS: INSULIN ASPART 100 UNIT/ML SUBCUT (07:41)
[2023-10-01] MEDS: SENNOSIDES 1 TAB TABLET 2 TAB PO (08:47)
[2023-10-01] MEDS: dilTIAZem 120 MG CAP.ER.24H PO (08:47)
[2023-10-01] MEDS: APIXABAN 5 MG TABLET PO (08:47)
[2023-10-01] MEDS: lisinopriL 20 MG TABLET 40 MG PO (08:47)
[2023-10-01] MEDS: METOPROLOL TARTRATE 100 MG TABLET PO (08:47)
--- NOTE | 2023-10-01 08:49 | PM.ORPN ---
Subjective Subjective Time Seen by Provider: 07:15 Date Seen: 10/01/23 Principal diagnosis: Status post right knee replacement Interval history: Abril is comfortable in the recliner this morning. She will discharge to home today. Ortho Exam Narrative Exam Narrative: Alert and oriented x3. Patient is in no acute distress. Converses without labored breathing. Hearing is grossly intact. Ambulates with a walker. Examination of the right knee shows dressing is intact. Minimal swelling. No erythema or warmth or sign of infection. Bilateral calves are soft and nontender. CMS intact right lower extremity. She is able to slightly straight leg raise. Quad strength 5/5. Const Vital Signs, click to edit/add: Vital Signs - 24 hr 09/30/23 09:58 09/30/23 10:51 09/30/23 13:30 Temperature 97.2 F L 97.3 F L Pulse Rate 89 80 82 Pulse Rate [Right Pulse Oximeter] Respiratory Rate 18 18 20 Blood Pressure 145/71 H 124/60 95/55 L Blood Pressure [Right Arm] Pulse Oximetry 96 98 92 Oxygen Delivery Method Room Air Nasal Cannula Room Air Oxygen Flow Rate 3 09/30/23 13:35 09/30/23 13:40 09/30/23 13:45 Temperature 97.4 F L Pulse Rate 80 79 76 Pulse Rate [Right Pulse Oximeter] Respiratory Rate 18 20 20 Blood Pressure 94/58 L 96/68 96/62 Blood Pressure [Right Arm] Pulse Oximetry 99 99 99 Oxygen Delivery Method Nasal Cannula Nasal Cannula Nasal Cannula Oxygen Flow Rate 3 3 3 09/30/23 13:50 09/30/23 13:55 09/30/23 14:00 Temperature Pulse Rate 75 72 72 Pulse Rate [Right Pulse Oximeter] Respiratory Rate 18 16 18 Blood Pressure 118/57 L 116/81 109/81 Blood Pressure [Right Arm] Pulse Oximetry 99 98 98 Oxygen Delivery Method Nasal Cannula Nasal Cannula Nasal Cannula Oxygen Flow Rate 2 2 2 09/30/23 14:07 09/30/23 14:15 09/30/23 14:30 Temperature 97.4 F L 96.0 F L Pulse Rate 72 76 Pulse Rate [Right Pulse Oximeter] Respiratory Rate 16 16 16 Blood Pressure 112/69 125/55 L Blood Pressure [Right Arm] Pulse Oximetry 97 94 94 Oxygen Delivery Method Nasal Cannula Room Air Room Air Oxygen Flow Rate 2 2 09/30/23 14:39 09/30/23 14:46 09/30/23 15:00 Temperature Pulse Rate 76 77 77 Pulse Rate [Right Pulse Oximeter] Respiratory Rate 16 16 16 Blood Pressure 126/64 134/60 129/80 Blood Pressure [Right Arm] Pulse Oximetry 94 93 91 Oxygen Delivery Method Room Air Room Air Room Air Oxygen Flow Rate 2 09/30/23 15:00 09/30/23 15:15 09/30/23 15:31 Temperature Pulse Rate 74 Pulse Rate [Right Pulse Oximeter] Respiratory Rate 16 16 16 Blood Pressure 129/66 Blood Pressure [Right Arm] Pulse Oximetry 93 91 Oxygen Delivery Method Room Air Room Air Oxygen Flow Rate 09/30/23 15:31 09/30/23 16:00 09/30/23 16:36 Temperature 96.6 F L Pulse Rate 76 82 86 Pulse Rate [Right Pulse Oximeter] Respiratory Rate 16 16 16 Blood Pressure 125/78 128/70 131/64 Blood Pressure [Right Arm] Pulse Oximetry 93 92 93 Oxygen Delivery Method Room Air Room Air Room Air Oxygen Flow Rate 09/30/23 17:00 09/30/23 18:00 09/30/23 20:00 Temperature 97.6 F Pulse Rate 83 80 99 Pulse Rate [Right Pulse Oximeter] Respiratory Rate 16 16 18 Blood Pressure 128/64 124/65 133/68 Blood Pressure [Right Arm] Pulse Oximetry 93 94 94 Oxygen Delivery Method Room Air Room Air Room Air Oxygen Flow Rate 2 09/30/23 22:35 09/30/23 22:35 09/30/23 22:35 Temperature 97.6 F Pulse Rate Pulse Rate [Right Pulse Oximeter] 97 97 Respiratory Rate 18 18 18 Blood Pressure Blood Pressure [Right Arm] 128/56 L Pulse Oximetry 90 90 Oxygen Delivery Method Room Air Room Air Oxygen Flow Rate 10/01/23 03:00 10/01/23 07:15 Temperature 97.6 F 99.2 F Pulse Rate Pulse Rate [Right Pulse Oximeter] 94 97 Respiratory Rate 18 16 Blood Pressure Blood Pressure [Right Arm] 105/44 L 140/74 H Pulse Oximetry 94 96 Oxygen Delivery Method CPAP Room Air Oxygen Flow Rate Assessment and Plan Assessment and plan (1) Status post right knee replacement: Problem details: 09/30/2023 Status: Acute Assessment and Plan: Plan for discharge is today to home if they meet discharge criteria. DVT prophylaxis includes apixaban-she normally takes this for AFib, Compression stockings as needed for swelling. Frequent ambulation, every hour throughout the day. Remove dressing in 1 week. Observe wound and phone Orthopedics with any questions or concerns Return to clinic in 1 week for a wound check Return to clinic in 6 weeks with surgeon Minimize narcotic use. Wean off and discontinue soon as possible. Activities as tolerated. No strenuous activity. Outpatient physical therapy as scheduled. Ice and elevate the operative extremity. No restriction on ice.
--- NOTE | 2023-10-01 11:29 | PC.NURSE ---
End of Shift: Patient pleasant and cooperative. Patient vitally stable, lungs clear, BS WNL, IV removed, catheter intact. Patient rates right knee pain 1-3/10, scheduled tylenol given and 10 mg of oxy x2. Patient SBA/walker. Patient urinating and tolerating regular diet. Blood sugar 194. Right knee dressing C/D/I, acitve ice used. Patient signed belongings sheet and discharge form. Patient had no further questions regarding discharge. Patient left the floor by wheelchair to home at 1126.
== END 2023-10-01 11:26 | disposition home or self-care (01) ==
LOC: OR 08:58 → MEDSURG 09:01
PROVIDERS: PCP Family Medicine; Visit Provider Orthopaedic Surgery
PROC: (CPT 27447; principal; 2023-09-30 10:45)
DX: M17.11 Unilateral primary osteoarthritis, right knee (principal); E11.9 Type 2 diabetes mellitus without complications; I10 Essential (primary) hypertension; E66.9 Obesity, unspecified; Z68.43 Body mass index [BMI] 50.0-59.9, adult; I48.91 Unspecified atrial fibrillation; G47.33 Obstructive sleep apnea (adult) (pediatric); G89.18 Other acute postprocedural pain
CPT/HCPCS: 27447; 01402; 36415; 64447; 64454; 73560; 76942; 82565; 82962; 84132; 84295; 84520; 85025; 85610; 97110; 97116; 97161; 97165; 97530; 97535; A9270; C1776; J0690; J1100; J2250; J2371; J2405; J2704; J2765; J2795; J3010; J7120

== ENCOUNTER 2023-11-17 14:30 | Outpatient (RCR) | payer OTHER, SELFPAY | END 2023-11-23 09:34 | disposition home or self-care (01) | PROVIDERS: PCP Family Medicine; Visit Provider Orthopaedic Surgery | DX: M17.11 Unilateral primary osteoarthritis, right knee (principal); Z96.651 Presence of right artificial knee joint; Z51.89 Encounter for other specified aftercare | CPT/HCPCS: 97110; 97140; 97162; 97164; 97535 ==

== ENCOUNTER 2023-12-02 14:15 | Emergency (ER) | payer OTHER, SELFPAY ==
[2023-12-02 14:19] VITALS: BP 182/91; PULSE 94; RESP 18; TEMP 37; O2SAT 96; BMI 48.7
--- NOTE | 2023-12-02 16:13 | CRLHL7_ITS ---
For Patients: As a result of the Cures Act, medical imaging exams and procedure reports are released immediately into your electronic medical record. You may view this report before your referring provider. If you have questions, please contact your health care provider. Indication: Pain. Technique: Right knee, 3 views. Comparison: November 10, 2023. Findings/impression: Bones: Right knee arthroplasty changes are identified. Orthopedic hardware is in appropriate alignment without evidence of hardware fracture or loosening. No osseous fractures identified.. Small areas of sclerosis within the patella of unknown etiology. Joint spaces: Moderate suprapatellar effusion.. Soft tissues: Soft tissue swelling surrounding the knee.. Dictated by Silvana Salinas MD @ 12/02/2023 5:58:59 PM (Electronically Signed)
--- NOTE | 2023-12-02 16:54 | ED_ITS ---
HPI - General Adult General Time Seen by Provider: 16:54 Date Seen: 12/02/23 Chief complaint: Extremity Pain/Injury, Lower Stated complaint: R knee pain, swollen, surgery 1 month ago Time Seen by Provider: 12/02/23 16:51 Source: patient Mode of arrival: ambulatory Limitations: no limitations History of Present Illness HPI narrative: The 58-year-old female who underwent total knee replacement September 29 presents with knee pain. She notes that she stood up yesterday after sitting and had sharp pain in her anterior knee. This went away quickly, however she experie nced 2 more times overnight and today has more pain and swelling in the knee. Difficulty with ambulation unable to straighten the knee. Patient is on Eliquis for atrial fibrillation. Related Data Home Medications ?Medication ?Instructions ?Recorded ?Confirmed blood sugar diagnostic (Contour #10 ea 12/15/21 11/10/23 Next Test Strips) blood-glucose meter (Contour Next #1 ea 12/15/21 11/10/23 Meter) lancets (Microlet Lancet) #100 ea 12/15/21 11/10/23 levothyroxine 125 mcg tablet 125 mcg PO DAILY 12/15/21 12/02/23 lisinopril 40 mg tablet 40 mg PO DAILY 12/15/21 12/02/23 metoprolol tartrate 100 mg tablet 100 mg PO BID 12/15/21 12/02/23 metformin 750 mg tablet,extended 750 mg PO DAILY 11/03/22 12/02/23 release 24 hr celecoxib 200 mg capsule 200 mg PO DAILY PRN 09/21/23 12/02/23 diltiazem HCl 120 mg 120 mg PO DAILY 09/21/23 12/02/23 capsule,extended release 24 hr lorazepam 1 mg tablet 1 mg PO HS PRN 09/21/23 12/02/23 nitrofurantoin 100 mg PO Q12H PRN 09/21/23 11/10/23 monohydrate/macrocrystals 100 mg capsule (Macrobid) nystatin 100,000 unit/gram topical 1 applic topical DAILY PRN 09/21/23 11/10/23 powder (Nystop) pantoprazole 40 mg tablet,delayed 40 mg PO DAILY 09/21/23 11/10/23 release rosuvastatin 10 mg tablet 10 mg PO HS 09/21/23 11/10/23 semaglutide 14 mg tablet (Rybelsus) 14 mg PO DAILY 09/21/23 11/10/23 Previous Rx's ?Medication ?Instructions ?Recorded clobetasol 0.05 % topical cream 1 applic topical BID PRN itching 11/22/21 #15 grams apixaban 5 mg tablet 5 mg PO BID #60 tabs 08/09/23 Walker- 2 Wheels #1 ea 09/08/23 acetaminophen 500 mg capsule 500 - 1,000 mg (1 - 2 x 500 mg) PO 09/30/23 Q6H PRN pain #100 caps sennosides 8.6 mg tablet (Senna 17.2 mg (2 x 8.6 mg) PO BID PRN 09/30/23 Lax) constipation #100 tabs oxycodone 5 mg tablet 2.5 - 5 mg (0.5 - 1 x 5 mg) PO 10/27/23 Q4-6H PRN Pain #24 tabs Allergies Allergy/AdvReac Type Severity Reaction Status Date / Time No Known Drug Allergies Allergy Verified 11/10/23 14:56 PFSH PFSH Medical History Urinary tract infection, site not specified (02/14/07) ?N39.0 - Urinary tract infection, site not specified (ICD-10) Restless legs syndrome (RLS) (11/14/07) ?G25.81 - Restless legs syndrome (ICD-10) Pure hypercholesterolemia (02/14/07) ?E78.00 - Pure hypercholesterolemia, unspecified (ICD-10) Obesity (02/21/13) ?E66.9 - Obesity, unspecified (ICD-10) Obstructive sleep apnea ?G47.33 - Obstructive sleep apnea (adult) (pediatric) (ICD-10) Chronic osteoarthritis (10/04/12) ?M19.90 - Unspecified osteoarthritis, unspecified site (ICD-10) Gastroesophageal reflux (10/04/12) ?K21.9 - Gastro-esophageal reflux disease without esophagitis (ICD-10) Generalized anxiety disorder ?F41.1 - Generalized anxiety disorder (ICD-10) Hyperlipidemia (10/04/12) ?E78.5 - Hyperlipidemia, unspecified (ICD-10) Hypothyroidism (10/04/12) ?E03.9 - Hypothyroidism, unspecified (ICD-10) Primary hypertension (10/04/12) ?I10 - Essential (primary) hypertension (ICD-10) Type 2 diabetes mellitus ?E11.9 - Type 2 diabetes mellitus without complications (ICD-10) Dupuytren's contracture of left hand ?M72.0 - Palmar fascial fibromatosis [Dupuytren] (ICD-10) Left carpal tunnel syndrome ?G56.02 - Carpal tunnel syndrome, left upper limb (ICD-10) New onset atrial fibrillation (09/02/23) ?I48.91 - Unspecified atrial fibrillation (ICD-10) Surgical History Status post right knee replacement (09/30/23) ?Z96.651 - Presence of right artificial knee joint (ICD-10) Hx of cholecystectomy ?Z90.49 - Acquired absence of other specified parts of digestive tract (ICD- 10) H/O section ?Z98.891 - History of uterine scar from previous surgery (ICD-10) History of arthroscopy of right knee (11/07/08) ?Z98.890 - Other specified postprocedural states (ICD-10) History of hysteroscopy (01/26/11) ?Z98.890 - Other specified postprocedural states (ICD-10) History of arthroscopy of left shoulder (10/12/12) ?Z98.890 - Other specified postprocedural states (ICD-10) History of arthroscopy of left knee (05/17/14) ?Z98.890 - Other specified postprocedural states (ICD-10) History of arthroscopy of right shoulder (02/21/15) ?Z98.890 - Other specified postprocedural states (ICD-10) Family History Sister Atrial fibrillation Father Lung cancer High blood pressure Social History What is your current living situation?: I presently have a place to live Problems where you live: declined to answer In past 12 months, lack of transportation kept you from medical appts, meetings, work, or getting things needed for daily living: no In the past 12 mos, have been you worried that your food would run out before you had money to buy more?: never true In the past 12 mos, the food you bought just didn't last and you didn't have money to buy more?: never true Highest level of school completed/degree received: decline to answer Smoking Status: Never smoker Do you use any of these nicotine containing products: None How often do you have a drink containing alcohol: monthly or less Alcohol type: beer How many standard drinks containing alcohol do you have on a typical day: 1 or 2 How often do you have six or more drinks on one occasion: Never AUDIT-C Alcohol total score: 1 Non-prescribed substance use: denies use Caffeine: Yes How often does anyone, including family, friends and others, physically hurt you : never How often does anyone, including family, friends and others, insult or talk down to you: never How often does anyone, including family, friends and others, threaten you with harm: never How often does anyone, including family, friends and others, scream or curse at you: never service: No Exam Narrative: Exam Narrative: General: well nourished , NAD Head: Atraumatic and normocephalic ENT: External ears and external nose are normal Eyes: Conjunctiva clear, pupils are equal reactive, external ocular motions are intact Neck: Full spontaneous range of motion of the neck Lungs: No respiratory distress Musculoskeletal: Moderate to large joint effusion on the right Neurologic: No gross focal neurologic deficits Skin: No rashes Psych: Mood and affect are appropriate Const: Vital Signs, click to edit/add: Vital Signs - 24 hr 12/02/23 14:19 Temperature 98.6 F Pulse Rate [Right Pulse Oximeter] 94 Respiratory Rate 18 Blood Pressure [Ri ght Forearm] 182/91 H Pulse Oximetry 96 Oxygen Delivery Me thod Room Air Course Course ED Course: Reviewed most recent is urgent care evaluation from November 15 which was for upper respiratory symptoms, diagnosed with viral URI and prescribed Tessalon Perles. X-ray ordered from the lobby. Reevaluation(s) Time of Reevaluation #1: 17:35 Reevaluation #1: X-ray of the right knee independently interpreted by me demonstrates appropriate placement and alignment of the total knee arthroplasty, moderate suprapatellar effusion. On exam, knee is swollen, patient is able to extend but with pain, no warmth or redness, do not suspect septic arthritis or crystal arthropathy. Symptoms are most consistent with hemarthrosis or bursitis, either inflammatory or hemorrhagic. Care discussed with Orthopedics in the emergency department, recommends immobilizer and compression wrap, follow-up with ortho next week. Patient has an orthopedic surgery clinic appointment tomorrow. Vital Signs Vital signs: Initial Vital Signs Temperature 98.6 F 12/02/23 14:19 Temperature Source Temporal Artery Scan 12/02/23 14:19 Pulse Rate 94 12/02/23 14:19 Pulse Rhythm Regular 12/02/23 14:19 Pulse Strength 3+ Normal 12/02/23 14:19 Respiratory Rate 18 12/02/23 14:19 Blood Pressure 182/91 H 12/02/23 14:19 Blood Pressure Mean 121 H 12/02/23 14:19 Blood Pressure Position Sitting 12/02/23 14:19 Pulse Oximetry 96 12/02/23 14:19 Oxygen Delivery Method Room Air 12/02/23 14:19 Vital Signs Temperature 98.6 F 12/02/23 14:19 Pulse Rate 94 12/02/23 14:19 Respiratory Rate 18 12/02/23 14:19 Blood Pressure 182/91 H 12/02/23 14:19 Pulse Oximetry 96 12/02/23 14:19 Oxygen Delivery Method Room Air 12/02/23 14:19 Temperature 98.6 F 12/02/23 14:19 Pulse Rate 94 12/02/23 14:19 Respiratory Rate 18 12/02/23 14:19 Blood Pressure 182/91 H 12/02/23 14:19 Pulse Oximetry 96 12/02/23 14:19 Oxygen Delivery Method Room Air 12/02/23 14:19 Discharge Plan Discharge Clinical Impression: Acute pain of right knee, Suprapatellar bursitis of right knee, Chronic anticoagulation, History of total right knee replacement Patient Disposition: Home, Self-Care Condition: Stable Instructions: Knee Bursitis (ED), Knee Pain (ED) Additional Instructions: Palomo wrap for compression Wear immobilizer when you are up and walking, also at night Follow-up with orthopedics as scheduled Activity Level: Wear Brace Prescriptions: No Action metformin 750 mg tablet extended release 24 hr 750 mg PO DAILY metoprolol tartrate 100 mg tablet 100 mg PO BID lisinopril 40 mg tablet 40 mg PO DAILY levothyroxine 125 mcg tablet 125 mcg PO DAILY (DME) lancets [Microlet Lancet] Mis See Rx Instructions .ROUTE .MEDSUPPLY Qty: 100 Patient Comments: TEST DAILY Rx Instructions: As directed (DME) Contour Next Test Strips Strip See Rx Instructions .ROUTE .MEDSUPPLY Qty: 10 Patient Comments: TEST DAILY Rx Instructions: As directed (DME) blood-glucose meter [Contour Next Meter] [facility] See Rx Instructions .ROUTE .MEDSUPPLY Qty: 1 Patient Comments: USE DIRECTED Rx Instructions: As directed oxycodone 5 mg tablet 2.5 - 5 mg PO Q4-6H MDD 6 tabs per day PRN (Reason: Pain) Qty: 24 0RF Rx Instructions: Minimize. Discontinue as soon as possible sennosides [Senna Lax] 8.6 mg Tablet 17.2 mg PO BID PRN (Reason: constipation) Qty: 100 0RF acetaminophen 500 mg capsule 500 - 1,000 mg PO Q6H MDD 4000mg per day PRN (Reason: pain) Qty: 100 0RF apixaban 5 mg tablet 5 mg PO BID Qty: 60 0RF clobetasol 0.05 % cream 1 applic topical BID PRN (Reason: itching) Qty: 15 2RF (DME) Walker- 2 Wheels [facility] See Rx Instructions .Route Qty: 1 0RF Rx Instructions: As directed pantoprazole 40 mg tablet,delayed release (DR/EC) 40 mg PO DAILY Rybelsus 14 mg tablet 14 mg PO DAILY Patient Comments: TAKE 1 TABLET BY MOUTH EVERY DAY BEFORE A MEAL celecoxib 200 mg capsule 200 mg PO DAILY PRN lorazepam 1 mg tablet 1 mg PO HS PRN nitrofurantoin monohyd/m-cryst [Macrobid] 100 mg capsule 100 mg PO Q12H PRN Rx Instructions: must administer with a meal/food Take 1 cap by mouth every 12 hours. Use dose before intercourse and dose after intercourse 12 hour after first dose. rosuvastatin 10 mg tablet 10 mg PO HS nystatin [Nystop] 100,000 unit/gram powder 1 applic topical DAILY PRN diltiazem HCl 120 mg capsule,extended release 24hr 120 mg PO DAILY Follow Up/Referrals: Joann Brown DO [Primary Care Provider] - Stand Alone Forms: [facility] Info Instructions
--- OUTSIDE RECORDS SUMMARY | 2023-12-02 18:21 | XMS_ITS | Encounter Summary ---
Author Organization [facility] Address [address] [address] Care Team Providers Care Recruitment Manager Name Role Phone Found, No Pcp Primary Care Provider Unavailab le Encounter Details Date Type Department Care Team (Latest Contact Info) Description 01/15/1996 Orders Only Jarod Cooper MD [address] [place] [id number] Social History Tobacco Use Types Packs/Day Years Used Date Smoking Tobacco: Never Assessed Sex and Gender Information Value Date Recorded Sex Assigned at Not on file Gender Identity Not on file Sexual Orientation Not on file documented as of this encounter Plan of Treatment Not on file documented as of this encounter Visit Diagnoses Not on filedocumented in this encounter Care Teams Recruitment Manager Relationship Specialty Start Date End Date Found, No PcpMD [address] [facility] [place] [address] PCP - General 07/05/23 documented as of this encounter
--- OUTSIDE RECORDS SUMMARY | 2023-12-02 18:21 | XMS_ITS | Encounter Summary ---
Author Organization [facility] Address [address] [place] [address] Care Team Providers Care Ward Aide Name Role Phone Found, No Pcp Primary Care Provider Unavailab le Encounter Details Date Type Department Care Team (Latest Contact Info) Description 06/30/1997 Orders Only Kyree Coronado MD [address] [place], [place] [id number] Social History Tobacco Use Types Packs/Day Years Used Date Smoking Tobacco: Never Assessed Sex and Gender Information Value Date Recorded Sex Assigned at Not on file Gender Identity Not on file Sexual Orientation Not on file documented as of this encounter Plan of Treatment Not on file documented as of this encounter Visit Diagnoses Not on filedocumented in this encounter Care Teams Ward Aide Relationship Specialty Start Date End Date Found, No Pcp, [address] [place] [address] PCP - General 07/05/23 documented as of this encounter
--- OUTSIDE RECORDS SUMMARY | 2023-12-02 18:21 | XMS_ITS | Encounter Summary ---
Author Organization [facility] Address [address], [place] [address] Care Team Providers Care Progressive Die Maker Name Role Phone Found, No Pcp [...] on filedocumented in this encounter Care Teams Progressive Die Maker Relationship Specialty Start Date End Date Found, No Pcp, [address] [place] [address] PCP - General 07/05/23 documented as of this encounter
--- OUTSIDE RECORDS SUMMARY | 2023-12-02 18:21 | XMS_ITS | Encounter Summary ---
Author Organization [facility] Address [address] [place] [address] Care Team Providers Care Process Eng Name Role Phone Found, No Pcp Primary Care Provider Unavailab le Encounter Details Date Type Department Care Team (Latest Contact Info) Description 06/12/1999 Orders Only Inés Lozada MD [address] [place] [address] Social History Tobacco Use Types Packs/Day Years Used Date Smoking Tobacco: Never Assessed Sex and Gender Information Value Date Recorded Sex Assigned at Not on file Gender Identity Not on file Sexual Orientation Not on file documented as of this encounter Plan of Treatment Not on file documented as of this encounter Visit Diagnoses Not on filedocumented in this encounter Care Teams Process Eng Relationship Specialty Start Date End Date Found, No PcpMD [address] [place] [address] PCP - General 07/05/23 documented as of this encounter
--- OUTSIDE RECORDS SUMMARY | 2023-12-02 18:21 | XMS_ITS | Encounter Summary ---
Author Organization [facility] Address [address], [place] [address] Care Team Providers Care Machinist Name Role Phone Found, No Pcp Primary [...] on filedocumented in this encounter Care Teams Machinist Relationship Specialty Start Date End Date Found, No Pcp, [address] [place] [address] PCP - General 07/05/23 documented as of this encounter
--- OUTSIDE RECORDS SUMMARY | 2023-12-02 18:21 | XMS_ITS | Encounter Summary ---
Author Organization [facility] Address [address] [address] Care Team Providers Care Stripping Shovel Operator Name Role Phone Found, No Pcp [...] on filedocumented in this encounter Care Teams Stripping Shovel Operator Relationship Specialty Start Date End Date Found, No Pcp, [address] [place] [address] PCP - General 07/05/23 documented as of this encounter
--- OUTSIDE RECORDS SUMMARY | 2023-12-02 18:21 | XMS_ITS | Encounter Summary ---
Author Organization [facility] Address [address] [address] Care Team Providers Care Manual Arts Teacher Name Role Phone Found, No Pcp [...] on filedocumented in this encounter Care Teams Manual Arts Teacher Relationship Specialty Start Date End Date Found, No Pcp, [address] [place] [address] PCP - General 07/05/23 documented as of this encounter
--- OUTSIDE RECORDS SUMMARY | 2023-12-02 18:21 | XMS_ITS | Encounter Summary ---
Author Organization [facility] Address [address], [place] [address] Care Team Providers Care Material Handler Loader Name Role Phone Found, No Pcp Primary [...] on filedocumented in this encounter Care Teams Material Handler Loader Relationship Specialty Start Date End Date Found, No Pcp, [address] [place] [address] PCP - General 07/05/23 documented as of this encounter
--- OUTSIDE RECORDS SUMMARY | 2023-12-02 18:21 | XMS_ITS | Encounter Summary ---
Author Organization [facility] Address [address] [address] Care Team Providers Care Emergency Medicine Specialist Name Role Phone Found, No Pcp [...] on filedocumented in this encounter Care Teams Emergency Medicine Specialist Relationship Specialty Start Date End Date Found, No Pcp, [address] [place] [address] PCP - General 07/05/23 documented as of this encounter
--- OUTSIDE RECORDS SUMMARY | 2023-12-02 18:21 | XMS_ITS | Encounter Summary ---
Author Organization [facility] Address [address], [place] [address] Care Team Providers Care Surgical Scrub Technician Name Role Phone Found, No Pcp [...] on filedocumented in this encounter Care Teams Surgical Scrub Technician Relationship Specialty Start Date End Date Found, No Pcp, [address] [place] [address] PCP - General 07/05/23 documented as of this encounter
--- OUTSIDE RECORDS SUMMARY | 2023-12-02 18:21 | XMS_ITS | Encounter Summary ---
Author Organization [facility] Address [address] [place] [address] Care Team Providers Care Spray Gun Sizer Name Role Phone Found, No Pcp Primary [...] on filedocumented in this encounter Care Teams Spray Gun Sizer Relationship Specialty Start Date End Date Found, No Pcp, [address] [place] [address] PCP - General 07/05/23 documented as of this encounter
--- OUTSIDE RECORDS SUMMARY | 2023-12-02 18:21 | XMS_ITS | Encounter Summary ---
Author Organization [facility] Address [address] [address] Care Team Providers Care Band Sewer Name Role Phone Found, No Pcp Primary [...] on filedocumented in this encounter Care Teams Band Sewer Relationship Specialty Start Date End Date Found, No Pcp, [address] [place] [address] PCP - General 07/05/23 documented as of this encounter
--- OUTSIDE RECORDS SUMMARY | 2023-12-02 18:21 | XMS_ITS | Encounter Summary ---
Author Organization [facility] Address [address] [place] [address] Care Team Providers Care Actuarial Intern Name Role Phone Found, No Pcp Primary Care Provider Unavailab le Encounter Details Date Type Department Care Team (Latest Contact Info) Description 08/17/1996 Orders Only Paulina Villegas MD [address] [facility] [facility] [address] [place] [address] Social History Tobacco Use Types [...] on filedocumented in this encounter Care Teams Actuarial Intern Relationship Specialty Start Date End Date Found, No Pcp, [address] [place] [address] PCP - General 07/05/23 documented as of this encounter
--- OUTSIDE RECORDS SUMMARY | 2023-12-02 18:21 | XMS_ITS | Encounter Summary ---
Author Organization [facility] Address [address] [address] Care Team Providers Care Detention Sergeant Name Role Phone Found, No Pcp Primary [...] on filedocumented in this encounter Care Teams Detention Sergeant Relationship Specialty Start Date End Date Found, No Pcp, [address] [place] [address] PCP - General 07/05/23 documented as of this encounter
--- OUTSIDE RECORDS SUMMARY | 2023-12-02 18:21 | XMS_ITS | Encounter Summary ---
Author Organization [facility] Address [address] [address] Care Team Providers Care Hedis Review Nurse Name Role Phone Found, No Pcp Primary [...] on filedocumented in this encounter Care Teams Hedis Review Nurse Relationship Specialty Start Date End Date Found, No Pcp, [address] [place] [address] PCP - General 07/05/23 documented as of this encounter
--- OUTSIDE RECORDS SUMMARY | 2023-12-02 18:21 | XMS_ITS | Encounter Summary ---
Author Organization [facility] Address [address], [place] [address] Care Team Providers Care Eeg Technician Name Role Phone Found, No Pcp [...] on filedocumented in this encounter Care Teams Eeg Technician Relationship Specialty Start Date End Date Found, No Pcp, [address] [place] [address] PCP - General 07/05/23 documented as of this encounter
--- OUTSIDE RECORDS SUMMARY | 2023-12-02 18:21 | XMS_ITS | Encounter Summary ---
Author Organization [facility] Address [address] [address] Care Team Providers Care Family Medicine Physician Assistant Name Role Phone Found, No Pcp [...] on filedocumented in this encounter Care Teams Family Medicine Physician Assistant Relationship Specialty Start Date End Date Found, No Pcp, [address] [place] [address] PCP - General 07/05/23 documented as of this encounter
--- OUTSIDE RECORDS SUMMARY | 2023-12-02 18:21 | XMS_ITS | Clinical Summary ---
[facility] Organization [facility] Address [address] [place] [address] Care Team Providers Care Soundscriber Mechanic Name Role Phone Found, No Pcp MD Primary Care Provider Unavailab le Source Comments You are receiving this document as you are listed as the primary care provider,follow-up provider, or the patient has been referred to you for consultation.This is in compliance with the Medicare and[facility] EHR Incentive Program,which states Providers who transition their patient to another setting of careor provider of care or refers their patient to another provider of care shouldprovide summary care record for each transition of care or referral. [facility] Allergies No known active allergies Medications [...] 156.5 kg (345 lb) 05/14/2023 10:00 AM SWIMMING POOL SERVICE TECHNICIAN Height 175.3 cm (5' 9) 05/14/2023 10:00 AM SWIMMING POOL SERVICE TECHNICIAN Body Mass Index 50.95 05/14/2023 10:00 AM SWIMMING POOL SERVICE TECHNICIAN Plan of Treatment Health Maintenance Due Date Last Done Comments Cervical Cancer Screening Due 1964 Colon Cancer Screening Plan Due 1964 Hep C Screening (Preventive Services) 1964 MTM Covered 1964 Mammogram 1964 HIV Screening (Preventive Services) [...] Procedure Name Priority Date/Time Associated Diagnosis Comments CHOLESTEROL (TOTAL) Routine 01/16/1998 1 1:49 AM SWIMMING POOL SERVICE TECHNICIAN from Last 3 Months or Most Recently Relevant to Health Maintenance Results * (ABNORMAL) CHOLESTEROL (TOTAL) (01/16/1998 11:49 AM SWIMMING POOL SERVICE TECHNICIAN) Cholesterol 238(H) <200 mg/dl [facility] Result should not be interpreted without the patient's history of cardiovascular risk factors. [facility] 01/16/1998 11:4 9 AM SWIMMING POOL SERVICE TECHNICIAN 01/16/1998 11:50 AM SWIMMING POOL SERVICE TECHNICIAN mEilio Dewey MD LAB[facility] [facility] [address] [id number] from Last 3 Months or Most Recently Relevant to Health Maintenance Care Teams Soundscriber Mechanic Relationship Specialty Start Date End Date Found, No Pcp, [address] [place] [address] PCP - General 07/05/23
--- OUTSIDE RECORDS SUMMARY | 2023-12-02 18:21 | XMS_ITS | Encounter Summary ---
Author Organization [facility] Address [address] [place] [address] Care Team Providers Care Business Associate Name Role Phone Found, No Pcp Primary Care Provider Unavailab le Encounter Details Date Type Department Care Team (Latest Contact Info) Description 12/22/1997 Orders Only Nikhil Ceja MD [address] [place], [place] [id number] Social History Tobacco Use Types Packs/Day Years Used Date Smoking Tobacco: Never Assessed Sex and Gender Information Value Date Recorded Sex Assigned at Not on file Gender Identity Not on file Sexual Orientation Not on file documented as of this encounter Plan of Treatment Not on file documented as of this encounter Visit Diagnoses Not on filedocumented in this encounter Care Teams Business Associate Relationship Specialty Start Date End Date Found, No Pcp, [address] [place] [address] PCP - General 07/05/23 documented as of this encounter
--- OUTSIDE RECORDS SUMMARY | 2023-12-02 18:21 | XMS_ITS | Encounter Summary ---
Author Organization [facility] Address [address] [place] [address] Care Team Providers Care Fructose Loader Name Role Phone Found, No Pcp Primary Care Provider Unavailab le Encounter Details Date Type Department Care Team (Latest Contact Info) Description 08/12/1996 Orders Only Joshua Váz[place] [address] [place] [address] Social History Tobacco Use Types Packs/Day Years Used Date Smoking Tobacco: Never Assessed Sex and Gender Information Value Date Recorded Sex Assigned at Not on file Gender Identity Not on file Sexual Orientation Not on file documented as of this encounter Plan of Treatment Not on file documented as of this encounter Visit Diagnoses Not on filedocumented in this encounter Care Teams Fructose Loader Relationship Specialty Start Date End Date Found, No Pcp, [address] [facility] [facility] [place] [address] PCP - General 07/05/23 documented as of this encounter
--- OUTSIDE RECORDS SUMMARY | 2023-12-02 18:21 | XMS_ITS | Encounter Summary ---
Author Organization [facility]ending [facility] to [facility] Address [address] [address] Care Team Providers Care Vp Organizational Development Name Role Phone Found, No Pcp Primary [...] on filedocumented in this encounter Care Teams Vp Organizational Development Relationship Specialty Start Date End Date Found, No Pcp, [address] [place] [address] PCP - General 07/05/23 documented as of this encounter
--- OUTSIDE RECORDS SUMMARY | 2023-12-02 18:22 | XMS_ITS | Encounter Summary ---
Author Organization [facility] Address [address] [address] Care Team Providers Care Home Service Consultant Name Role Phone Found, No Pcp [...] on filedocumented in this encounter Care Teams Home Service Consultant Relationship Specialty Start Date End Date Found, No Pcp, [address] [place] [address] PCP - General 07/05/23 documented as of this encounter
--- OUTSIDE RECORDS SUMMARY | 2023-12-02 18:22 | XMS_ITS | Encounter Summary ---
Author Organization [facility] Address [address], [place] [address] Care Team Providers Care Manager Camp Name Role Phone Found, No Pcp Primary Care Provider Unavailab le Encounter Details Date Type Department Care Team (Latest Contact Info) Description 06/02/1994 Orders Only Jarod Cooper MD [address] [place] [id number] Social History Tobacco Use Types Packs/Day Years Used Date Smoking Tobacco: Never Assessed Sex and Gender Information Value Date Recorded Sex Assigned at Not on file Gender Identity Not on file Sexual Orientation Not on file documented as of this encounter Plan of Treatment Not on file documented as of this encounter Visit Diagnoses Not on filedocumented in this encounter Care Teams Manager Camp Relationship Specialty Start Date End Date Found, No PcpMD [address] [facility] [place] [place] [address] PCP - General 07/05/23 documented as of this encounter
--- OUTSIDE RECORDS SUMMARY | 2023-12-02 18:22 | XMS_ITS | Clinical Summary ---
Author Organization [employer] [facility] Address [place], [place] [address] Care Team Providers Care Computed Tomography Scanner Operator Name Role Phone Joann Brown DO Primary Care Provider [phone] Allergies No known active allergies Medications Medication Sig Dispensed Refills Start Date End Date Status miscellaneous medical supply miscIndications:Foot pain, bilateral,Heel pain, bilateral,Diabetes mellitus type 2, uncontrolled, without complications As directed. Orthotic foot inserts - 1 pair 1 Each 11/15/19 19 Active CPAPIndications:Obstruc tive sleep apnea CPAP machine for home use [...] Frequency of use: Daily 1 Device 11 11/16/19 20 Active lancets (Accu-Chek Softclix Lancets)Indications:Typ e 2 diabetes mellitus without complication, without long-term current use of insulin (HC) TEST DAILY 100 Each 3 12/18/19 21 Active blood-glucose meterIndications:Uncont rolled type 2 diabetes mellitus with hyperglycemia (HC) Dispense meter, test strips, lancets covered by pt ins. E11.9 NIDDM type II - Test 1 time/day 1 Each 03/17/20 21 Active blood sugar diagnostic (FreeStyle Test) stripIndications:Uncont rolled type 2 diabetes mellitus with hyperglycemia (HC) Dispense item covered by pt ins. E11.9 NIDDM type II - Test 1 time/day 100 Each 03/17/20 21 Active clobetasol cream 0.05% (TEMOVATE) 0.05 % creamIndications:Dermat itis Use daily as needed 30 g 1 07/14/19 23 Active semaglutide (Rybelsus) 14 mg tabletIndications:Type 2 diabetes mellitus without complication, without long-term current use of insulin (HC) Take 14 mg by mouth once daily before a meal. 30 Tablet 11 09/01/19 24 Active metFORMIN (GLUCOPHAGE XR) 750 mg Extended-Release tabletIndications:Type 2 diabetes mellitus without complication, without long-term current use of insulin (HC) Take 1 Tablet (750 mg) by mouth once daily. 90 Tablet 09/01/19 24 Active pantoprazole (PROTONIX) 40 mg delayed-release tabletIndications:Gastr oesophageal reflux disease, unspecified whether esophagitis present Take 1 Tablet (40 mg) by mouth once daily. 90 Tablet 3 09/01/19 24 Active lisinopriL (PRINIVIL; ZESTRIL) 40 mg tabletIndications:Essen tial hypertension Take 1 Tablet (40 mg) by mouth once daily. 90 Tablet 3 09/01/19 24 Active levothyroxine (SYNTHROID) 125 mcg tabletIndications:Hypot hyroidism, unspecified type Take 1 Tablet (125 mcg) by mouth before breakfast. 90 Tablet 09/01/19 24 Active metoprolol tartrate (LOPRESSOR) 100 mg tabletIndications:Essen tial hypertension Take 1 Tablet (100 mg) by mouth two times daily. 180 Tablet 3 09/01/19 24 Active celecoxib (CELEBREX) 200 mg capsuleIndications:Oste oarthritis, unspecified osteoarthritis type, unspecified site Use once daily as needed for pain 90 Capsule 3 09/01/19 24 Active nitrofurantoin macrocrystals/monohydra te (Macrobid) 100 mg capsuleIndications:Recu rrent UTI Take 1 Capsule (100 mg) by mouth every 12 hours. Use dose before intercourse and dose after intercourse 12 hours after first dose 60 Capsule 09/01/19 24 Active nystatin powder (Nystop) powderIndications:Yeast infection of the skin Apply topically to affected area(s) one time if needed (Topical yeast infection). 15 g 3 09/01/19 24 Active rosuvastatin (CRESTOR) 10 mg tabletIndications:Pure hypercholesterolemia Take 1 Tablet (10 mg) by mouth at bedtime. 90 Tablet 3 09/02/19 24 Active dilTIAZem CD (CARDIZEM CD) 120 mg extended release 24 hr capsuleIndications:New onset atrial fibrillation (HC),Essential hypertension Take 1 Capsule (120 mg) by mouth once daily. 90 Capsule 3 09/10/19 24 Active Eliquis 5 mg tabletIndications:New onset atrial fibrillation (HC) Take 1 Tablet (5 mg) by mouth two times daily. 180 Tablet 3 10/20/19 24 Active LORazepam (ATIVAN) 1 mg tabletIndications:Insom dutch, idiopathic TAKE 1 TABLET(1 MG) BY MOUTH AT BEDTIME NEEDED FOR ANXIETY OR SLEEP 15 Tablet 11/16/19 24 Active benzonatate (TESSALON) 200 mg capsuleIndications:Acut e cough Take 1 Capsule (200 mg) by mouth 3 times daily if needed for Cough. 21 Capsule 11/18/19 24 Active LORazepam (ATIVAN) 1 mg tabletIndications:Insom dutch, idiopathic Take 1 Tablet (1 mg) by mouth at bedtime if needed for Anxiety or Sleep. 15 Tablet 06/30/19 24 024 Discontinued Active Problems Problem Noted Date Diagnosed Date New onset atrial fibrillation 09/02/2023 Diabetes mellitus type 2, un controlled, without complications 10/12/2018 Obesity 02/21/2013 YOKO 11/23/2012 AHI-38 11/29/2012 Restless legs syndrome (RLS) 11/14/2007 Sleep Apnea 11/2007 RDI-6.2, AHI-4.2 11/14/2007 Unspecified essential hypertension 02/14/2007 Unspecified hypothyroidism 02/14/2007 Pure hypercholesterolemia 02/14/2007 Urinary tract infection, site not specified 01/21 Overview (02/14/2007): abx proph after intercourse Resolved Problems Problem Noted Date Diagnosed Date Resolved Date Routine adult health maintenance 01/01/2016 04/15/2020 Overview (01/01/2016): Colonoscopy 12/2015 normal repeat in 10 years Encounters Date Type Department Care Team Description 11/18/2023 4:25 PM CDT Telemedicine [facility] [address] [place] [phone] Rita Arnold, EXTRACTOR OPERATOR URI; Telehealth 11/18/2023 Travel 11/16/2023 Refill [facility] [address] [place] [address] Shaqra Joann Arianna, DO Refill Request (Lorazepam) 10/20/2023 Refill [facility] [address] [place] [address] Shaqra Joann Arianna, DO Refill Request 09/10/2023 10:10 AM CDT Preop Visit [facility] [address] [place] [address] Kennqra Joann Arianna, DO Preoperative Exam (09/30/23 - R total knee - [facility] - Dr. Javier) 09/10/2023 8:30 AM CDT Office Visit [facility] [place] [address] [facility] [address] [place] [phone] Ayleen Berrios MD Consult (Initial Office Consult/Recent ECHO and Holter /New onset atrial fibrillation/PT states feeling pretty good./Discuss labs.) 09/10/2023 Travel 09/08/2023 9:00 AM CDT Ancillary Procedure [facility] - [address] [place] [address] 09/08/2023 Travel 09/06/2023 Travel 09/03/2023 Telephone [facility] [address] [place] [address] Kennqra Joann Arianna, DO Imaging 09/03/2023 Telephone [facility] [address] [place] [address] Kennqra Joann Arianna, DO 09/01/2023 3:25 PM CDT Office Visit [facility] [address] [place] [address] Joann Brown, DO Preoperative Exam (09/16/23 - R total knee - [facility] - Dr. Javier); Diabetes (6 month check); Hospital F/U 09/01/2023 9:45 AM CDT Office Visit [place] [address] [place] [address] 09/01/2023 Travel from Last 3 Months Immunizations Name Administration Dates Next Due COVID-19 VACCINE SPIKEVAX (M ODERNA 50MCG/0.5ML) 12YO+ PFS 01/22/2023 COVID-19 vaccine (Pfizer-Bio NTech 30mcg/0.3mL) 12YO+ BIVALENT PF, MDV 05/07/2022 COVID-19 vaccine (Pfizer-Bio NTech 30mcg/0.3mL) 12YO+ BRUCE-SUCROSE PF, MDV 07/10/2021 COVID-19 vaccine (Pfizer-Bio NTech 30mcg/0.3mL) PF, MDV 07/10/2021,12/16/2020,04/02/2020,2019 Hepatitis B (Adult) 07/13/2022 Influenza A (H1N1), Live Intranasal 01/17/2014 Influenza RIV4 (Age 18+ Year s) PRESERV FREE 12/21/2018 Influenza, IIV3 (Age 6-35 mos) 12/27/2019 Influenza, IIV3 (Age >=3 years) 12/31/19 18,12/03/2015,01/03/2013,2007 Influenza, IIV4 01/22/2023, 2,01/06/2017,2015 Influenza, IIV4 (=>6mos) MDV 12/18/2020,12/27/19 20,12/26/2016 Influenza, [...] of Communication with Friends and Fami ly Not on file 11/16/2023 Financial Resource Strain Answer Date R ecorded [...] Description 01/05/2024 3:00 PM CDT Office Visit [facility] [address] [place] [address] Sebastien Rodriguez MD [address] [facility] [address] Health Maintenance Due Date Last Done Comments [...] Completed 07/13/2022, 03/30/2019, 06/11/2000 Tdap Completed 07/13/2022, 05/2011, 02/14/2007 COVID-19 vaccine [...] CDT Screening for HIV (human immunodeficiency virus) SCAN-MAMMOGRAPHY REPORT 10/03/2020 12:00 AM CDT CULINARY INSTRUCTOR THIN PREP PAP SCREEN IMAGED Routine 04/15/2020 8:45 AM PERSONAL LOAN SPECIALIST Pap smear for cervical cancer screening ANTI HCV Routine 03/30/2019 12:27 PM PERSONAL LOAN SPECIALIST Need for hepatitis C screening test SCAN-COLONOSCOPY 12/30/2015 12:0 0 AM CDT from Last 3 Months or Most Recently Relevant to Health Maintenance Results * EXTENDED HOLTER (09/28/2023) Joann Brown DO CARDIAC SERVICES ORD * RED CELL MORPHOLOGY (09/10/2023 11:17 AM CDT) RBC COMMENT RBC morphology appears normal RBC morphology appears normal, RBC morphology within normal limits for newborns. 09/10/2023 12:19 PM CDT [facility] Blood BLOOD SPECIMEN / Unknown Venipuncture / Unknown 09/10/2023 11:17 AM CDT 09/10/2023 11:18 AM CDT Joann Keller Kennlucio DO HEMATOLOGY [facility] [address] [place] [address], * PLATELET ESTIMATE (09/10/2023 11:17 AM CDT) PLATELET ESTIMATE Adequate Adequate, No estimate 09/10/2023 12:19 PM CDT [facility] Blood BLOOD SPECIMEN / Unknown Venipuncture / Unknown 09/10/2023 11:17 AM CDT 09/10/2023 11:18 AM CDT Joannjules Hawklucio PEREA HEMATOLOGY [facility] [address] [place] [address], * HEMOGLOBIN (09/10/2023 11:17 AM CDT) HEMOGLOBIN 13.1 12.0 - 16.0 g/dL 09/10/2023 12:19 PM CDT [facility] MCV 82 80 - 100 fL 09/10/2023 12:19 PM CDT [facility] Blood BLOOD SPECIMEN / Unknown Venipuncture / Unknown 09/10/2023 11:17 AM CDT 09/10/2023 11:18 AM CDT Joann Brown DO HEMATOLOGY [facility] [address] [place] [address], * EKG 12 LEAD (09/10/2023 8:22 AM CDT) Interpretation Normal sinus rhythm Normal ECG No previous ECGs available Ventricular Rate 99 BPM Atrial Rate 99 BPM P-R Interval 172 ms QRS Duration 90 ms QT 350 ms QTc 449 ms P Cresson 68 degrees R Cresson 49 degrees T Cresson 48 degrees 09/10/2023 8:22 AM CDT 09/22/2023 1:11 PM CDT Ayleen Berrios MD EKG ORD * ECHO TTE COMPLETE WO CONTRAST (09/08/2023 9:24 AM CDT) AORTIC VALVE MEAN PG 5 mmHg EJECTION FRACTION 52 % LVEDD 4.8 cm EJECTION FRACTION 50 - 55% Anatomical Region Laterality Modality Ultrasound 09/08/2023 8:56 AM CDT Narrative 09/08/2023 9:45 AM CDT ECHOCARDIOGRAM FIDE WHITE ?Accession#: ?? [id number] : ?1965 58 years Study Date: ?? 09/08/2023 8:56:49 AM Gender: F ? BP: ? 147/88 mmHg Height: 173.00 cm ? BSA: ?2.53 m? ? ? Weight: 150.00 kg ? Tech: ? HMG ?Referring MD: JOANN BROWN Site: ? [facility] Reading Location: MOBILE OP Patient Location: Outpatient. [...] . This study was interpreted by an [facility] accredited facility. ??Final ?? Procedure Note Meeta Dodd, [facility] - 09/08/2023 ECHOCARDIOGRAM FIDE WHITE : 1965 58 years Study Date: 09/08/2023 8:56:49 AM Gender: F BP: 147/88 mmHg Height: 173.00 cm BSA: 2.53 m? ? ? Weight: 150.00 kg Tech: ARMANDO Referring MD: JOANN BROWN Site: [facility] Reading Location: [facility] OP Patient Location: Outpatient. Procedure: 2D, Color [...] . This study was interpreted by an [facility] accredited facility. Final Joann Brown DO ECHO ORD * (ABNORMAL) LIPID PANEL W REFLEX MEASURED LDL (09/01/2023 3:17 PM CDT) CHOLESTEROL,TOTAL 264(H) 100 - 199 mg/dL 09/01/2023 11:47 PM CDT [facility] Comment: Cholesterol, Total Reference Ranges Desirable <200 mg/dL Borderline 200-239 mg/dL High >=240 mg/dL TRIGLYCERIDES 156(H) <150 mg/dL 09/01/2023 11:47 PM CDT [facility] HDL CHOLESTEROL 73 >40 mg/dL 11:47 PM CDT [facility] NON-HDL CHOLESTEROL 191(H) <145 mg/dl 09/01/2023 11:47 PM CDT [facility] CHOL/HDL RATIO 3.62 <4.50 09/01/2023 11:47 PM CDT [facility] LDL CHOLESTEROL 160(H) <=130 mg/dL 09/01/2023 11:47 PM CDT [facility] VLDL CHOLESTEROL 31(H) <=30 mg/dL 09/01/2023 11:47 PM CDT [facility] PROVIDER ORDERED STATUS RANDOM 09/01/2023 11:47 PM CDT [facility] Blood BLOOD SPECIMEN / Unknown Venipuncture / Unknown 09/01/2023 3:17 PM CDT 09/01/2023 3:19 PM CDT [employer] CHEMISTRY Performing Organization Address [facility] Co de Phone Number [facility] [address] [place] [address], [place] * TSH (09/01/2023 3:17 PM CDT) TSH 2.28 0.27 - 4.20 uIU/mL 09/01/2023 11:47 PM CDT [facility] Blood BLOOD SPECIMEN / Unknown Venipuncture / Unknown 09/01/2023 3:17 PM CDT 09/01/2023 3:19 PM CDT Narrative [facility] - 09/01/2023 11:47 PM CDT In Adults, TSH values between 5.00 and 10.00 uIU/ml do not necessarily indicate the presence of Hypothyroidism. Correlation with clinical findings such as presence of goiter and/or Thyroperoxidase (TPO) Antibody may be helpful. For more information please refer to FRANCHESKA 2004; 291: 228-238. [employer] CHEMISTRY Performing Organization Address [facility]/ZIP Co de Phone Number [facility] [address] [place] [address], [place] * ANTI HIV 1/2 [59602.0] (09/01/2023 3:17 PM CDT) HIV-1/HIV-2 SCREEN Non-Reacti ve Non-Reacti ve 09/01/2023 11:34 PM CDT [facility] Comment:HIV-1 p24 and HIV-1/ HIV-2 Ab Not Detected. Blood BLOOD SPECIMEN / Unknown Venipuncture / Unknown 09/01/2023 3:17 PM CDT 09/01/2023 3:19 PM CDT Joann Arianna Kevin DO SEND OUTS Performing Organization Address [facility]/ZIP Co de Phone Number [facility] [address] [place] [address], [place] * (ABNORMAL) HEMOGLOBIN A1C MONITORING (POCT) (09/01/2023 3:17 PM CDT) HEMOGLOBIN A1C MONITORING (POCT) 6.8(H) <=6.4 % 09/01/2023 3:33 PM CDT [facility] Blood BLOOD SPECIMEN / Unknown Venipuncture / Unknown 09/01/2023 3:17 PM CDT 09/01/2023 3:19 PM CDT Narrative [facility] - 09/01/2023 3:33 PM CDT ? (<=6.9%) [...] seen with: Untreated Anemias, Splenectomy ? Joann Arianna Hawklucio DO CHEMISTRY Performing Organization Address [facility]/ZIP Co de Phone Number [facility] [address] [place] [address], [place] [phone] * (ABNORMAL) BASIC METABOLIC PANEL (09/01/2023 3:17 PM CDT) SODIUM 140 136 - 145 mmol/L 09/01/2023 11:47 PM CDT [facility] POTASSIUM 4.2 3.5 - 5.1 mmol/L 09/01/2023 11:47 PM CDT [facility] CHLORIDE 100 98 - 107 mmol/L 09/01/2023 11:47 PM CDT [facility] CO2,TOTAL 24 22 - 29 mmol/L 09/01/2023 11:47 PM CDT [facility] ANION GAP 16 5 - 18 09/01/2023 11:47 PM CDT [facility] GLUCOSE 100(H) 70 - 99 mg/dL 09/01/2023 11:47 PM CDT [facility] CALCIUM 9.9 8.6 - 10.0 mg/dL 09/01/2023 11:47 PM CDT [facility] BUN 10 6 - 20 mg/dL 09/01/2023 11:47 PM CDT [facility] CREATININE 0.77 0.50 - 0.90 mg/dL 09/01/2023 11:47 PM CDT [facility] BUN/CREAT RATIO 13 10 - 20 11:47 PM CDT [facility] eGFR 89(L) >90 mL/min/1.7 3m2 09/01/2023 11:47 PM CDT [facility] Comment:As of 2021, eG FR [...] 3:19 PM CDT Joann Brown DO CHEMISTRY [facility] [address] [place] [address], * SCAN-MAMMOGRAPHY REPORT (10/03/2020 12:00 AM CDT) Anatomical Region Laterality Modality Other Scanner OTHER * CULINARY INSTRUCTOR THIN PREP PAP SCREEN IMAGED [[id number]] (04/15/2020 8:45 AM PERSONAL LOAN SPECIALIST) Case Report Gynecologic Cytology Report ? Case: [id number] ? Authorizing Provider: ??Sherrie Doyle MD ? Collected: ? 04/15/2020 0845 ? Ordering Location: ? [facility] ?? Received: ?04/15/2020 1020 ? Clinic ? First Screen: ?Alexandra, Giselle ? Specimen: ?CULINARY INSTRUCTOR ThinPrep Vial Screening, Cervical ? 04/23/2020 2:58 PM PERSONAL LOAN SPECIALIST [employer] LAB[facility]AT[facility] ENTRAL LABORATORY INTERPRETATION/ RESULT NEGATIVE FOR INTRAEPITHELIAL LESION OR MALIGNANCY (NIL) (none) 04/23/2020 2:58 PM PERSONAL LOAN SPECIALIST [facility] IMEN ADEQUACY Satisfactory for evaluation Endocervical component present 04/23/2020 2:58 PM PERSONAL LOAN SPECIALIST [facility] HPV REQUEST HPV and PAP 04/23/2020 2:58 PM PERSONAL LOAN SPECIALIST [facility] Date of LMP uncertain 04/23/2020 2:58 PM PERSONAL LOAN SPECIALIST [facility] Last Pap Date 03/18/17 04/23/2020 2:58 PM PERSONAL LOAN SPECIALIST [facility] Last Pap Result NIL 2:58 PM PERSONAL LOAN SPECIALIST [facility] Abnormal Pap or [place] Bx in last 5 years No 04/23/2020 2:58 PM PERSONAL LOAN SPECIALIST [facility] Menstrual Status Postmenopausal 04/23/2020 2:58 PM PERSONAL LOAN SPECIALIST [facility] [place] Bx Done Today No 04/23/2020 2:58 PM PERSONAL LOAN SPECIALIST [facility] Additional Information None given 04/23/2020 2:58 PM PERSONAL LOAN SPECIALIST [facility] Comment: Cytology is screened at [facility] - [address], [place] [address] and [facility] - [address] [place] [address] and [facility] - [address] [place] [address] Interpreted at [facility] - [address], [place] [address] Automated Review Successful 04/23/2020 2:58 PM PERSONAL LOAN SPECIALIST [facility] Comment:Specimen processed s uccessfully by automated social media marketing analyst device, ThinPrep Imaging System, [employer] ANCILLARY TESTING CULINARY INSTRUCTOR HPV Ordered, Please see separate report 04/23/2020 2:58 PM PERSONAL LOAN SPECIALIST [facility] Note The pap test is a screening technique, not a diagnostic procedure. It is used primarily to screen for squamous cancers and precursor lesions. Published studies have shown that it is subject to both false negative and false positive results. The pap test should not be used as the sole means to diagnose or exclude pre-malignant and malignant lesions. 04/23/2020 2:58 PM PERSONAL LOAN SPECIALIST [facility] ENTRAL LABORATORY Other (Cervical) Non-Blood / Unknown 04/15/2020 8:45 AM PERSONAL LOAN SPECIALIST 04/15/2020 10:20 AM PERSONAL LOAN SPECIALIST Sherrie Doyle MD PATHOLOGY/CYTOLOGY [facility] [address] [place] [address], * ANTI HCV (03/30/2019 12:27 PM PERSONAL LOAN SPECIALIST) HEPATITIS C ANTIBODY Non-React chiquita Non-React chiquita 03/30/2019 7:09 PM PERSONAL LOAN SPECIALIST [facility] Comment:Antibodies to HCV no t detected; does not exclude the possibility of exposure to HCV. Blood BLOOD SPECIMEN / Unknown Butterfly / Unknown 03/30/2019 12:27 PM PERSONAL LOAN SPECIALIST 03/30/2019 12:27 PM PERSONAL LOAN SPECIALIST Sherrie Doyle MD SEND OUTS Performing Organization Address [facility]/ZIP Co de Phone Number [facility] [address] [place] [address], * SCAN-COLONOSCOPY (12/30/2015 12:00 AM CDT) Scanner OTHER from Last 3 Months or Most Recently Relevant to Health Maintenance Care Teams Computed Tomography Scanner Operator Relationship Specialty Start Date End Date Joann Brown DO [address] [place] [address] PCP - General Family Practice 07/13/22
--- OUTSIDE RECORDS SUMMARY | 2023-12-02 18:22 | XMS_ITS | Encounter Summary ---
Author Organization [facility] Address [address] [address] Care Team Providers Care Pet Care Worker Name Role Phone Found, No Pcp [...] on filedocumented in this encounter Care Teams Pet Care Worker Relationship Specialty Start Date End Date Found, No Pcp, [address] [place] [address] PCP - General 07/05/23 documented as of this encounter
--- OUTSIDE RECORDS SUMMARY | 2023-12-02 18:22 | XMS_ITS | Encounter Summary ---
Author Organization [facility] Address [address] [place] [address] Care Team Providers Care Upholstery Repairer Name Role Phone Found, No Pcp Primary Care Provider Unavailab le Encounter Details Date Type Department Care Team (Latest Contact Info) Description 09/20/1995 Orders Only Kyree Coronado MD [address] [place], [place] [phone] Social History Tobacco Use Types Packs/Day Years Used Date Smoking Tobacco: Never Assessed Sex and Gender Information Value Date Recorded Sex Assigned at Not on file Gender Identity Not on file Sexual Orientation Not on file documented as of this encounter Plan of Treatment Not on file documented as of this encounter Visit Diagnoses Not on filedocumented in this encounter Care Teams Upholstery Repairer Relationship Specialty Start Date End Date Found, No Pcp, [address] [place] [address] PCP - General 07/05/23 documented as of this encounter
--- OUTSIDE RECORDS SUMMARY | 2023-12-02 18:22 | XMS_ITS | Encounter Summary ---
Author Organization [facility] Address [address] [address] Care Team Providers Care Director Of Digital Technology Name Role Phone Found, No Pcp Primary [...] filedocumented in this encounter Care Teams Director Of Digital Technology Relationship Specialty Start Date End Date Found, No Pcp, [address] [place] [address] PCP - General 07/05/23 documented as of this encounter
--- OUTSIDE RECORDS SUMMARY | 2023-12-02 18:22 | XMS_ITS | Encounter Summary ---
Author Organization [facility] Address [address], [place] [address] Care Team Providers Care Radiology Services Manager Name Role Phone Found, No Pcp [...] on filedocumented in this encounter Care Teams Radiology Services Manager Relationship Specialty Start Date End Date Found, No Pcp, [address] [place] [address] PCP - General 07/05/23 documented as of this encounter
--- OUTSIDE RECORDS SUMMARY | 2023-12-02 18:22 | XMS_ITS | Encounter Summary ---
Author Organization [facility] Address [address], [place] [address] Care Team Providers Care Kickboxing Instructor Name Role Phone Found, No Pcp [...] on filedocumented in this encounter Care Teams Kickboxing Instructor Relationship Specialty Start Date End Date Found, No Pcp, [address] [place] [address] PCP - General 07/05/23 documented as of this encounter
--- OUTSIDE RECORDS SUMMARY | 2023-12-02 18:22 | XMS_ITS | Referral Summary ---
Author Organization [facility] Address [address] [place] [address]. [place] [address] Care Team Providers Care Chemist Instrumentation Name Role Phone Mp Brown DO Primary Care Provider [phone] Allergies No known active allergies Medications Medication [...] of Treatment Not on file Care Teams Chemist Instrumentation Relationship Specialty Start Date End Date Mp Brown DO [address] [place] [address] PCP - General 01/01/23
--- OUTSIDE RECORDS SUMMARY | 2023-12-02 18:22 | XMS_ITS | Encounter Summary ---
Author Organization Formerly [facility] Address [address] [place] [address] Care Team Providers Care Manager Auto Name Role Phone Found, No Pcp Primary Care Provider Unavailab le Encounter Details Date Type Department Care Team (Late st Contact Info) Description 06/05/1995 Orders Only [facility] Scott Pedroza MD [address] [address] Social History Tobacco Use Types Packs/Day Years Used Date Smoking Tobacco: Never Assessed Sex and Gender Information Value Date Recorded Sex Assigned at Not on file Gender Identity Not on file Sexual Orientation Not on file documented as of this encounter Plan of Treatment Not on file documented as of this encounter Visit Diagnoses Not on filedocumented in this encounter Care Teams Manager Auto Relationship Specialty Start Date End Date Found, No Pcp, [address] [place] [address] PCP - General 07/05/23 documented as of this encounter
--- OUTSIDE RECORDS SUMMARY | 2023-12-02 18:22 | XMS_ITS | Encounter Summary ---
Author Organization [facility] Address [address], [place] [address] Care Team Providers Care Travel Counselor Automobile Club Name Role Phone Found, No Pcp Primary [...] on filedocumented in this encounter Care Teams Travel Counselor Automobile Club Relationship Specialty Start Date End Date Found, No Pcp, [address] [place] [address] PCP - General 07/05/23 documented as of this encounter
--- OUTSIDE RECORDS SUMMARY | 2023-12-02 18:22 | XMS_ITS | Encounter Summary ---
Author Organization [facility] Address [address], [place] [address] Care Team Providers Care Non Destructive Testing Inspector Name Role Phone Found, No Pcp Primary Care Provider Unavailab le Encounter Details Date Type Department Care Team (Latest Contact Info) Description 07/06/1994 [place] [address] [place], [place] [address] Social History Tobacco Use Types Packs/Day Years Used Date Smoking Tobacco: Never Assessed Sex and Gender Information Value Date Recorded Sex Assigned at Not on file Gender Identity Not on file Sexual Orientation Not on file documented as of this encounter Plan of Treatment Not on file documented as of this encounter Visit Diagnoses Not on filedocumented in this encounter Care Teams Non Destructive Testing Inspector Relationship Specialty Start Date End Date Found, No PcpMD [address] [facility] [place] [address] PCP - General 07/05/23 documented as of this encounter
--- OUTSIDE RECORDS SUMMARY | 2023-12-02 18:22 | XMS_ITS | Encounter Summary ---
Author Organization [facility] Address [address] [address] Care Team Providers Care Cake Washer Name Role Phone Found, No Pcp Primary [...] on filedocumented in this encounter Care Teams Cake Washer Relationship Specialty Start Date End Date Found, No Pcp, [address] [place] [address] PCP - General 07/05/23 documented as of this encounter
--- OUTSIDE RECORDS SUMMARY | 2023-12-02 18:22 | XMS_ITS | Clinical Summary ---
Author Organization [facility] Address [address] [place] [address]. [place] [address] Care Team Providers Care Imaging Technologist Name Role Phone Mp Brown DO Primary Care Provider [phone] Allergies No known active allergies Medications Medication [...] 3 - 19+ 3-dose series) 08/10/2022 07/13/2022 PHQ-2 (once per calendar year) 2023 YEARLY PREVENTIVE VISIT 07/14/2023 07/14/19 23, 05/19/2021, 04/15/2020 COVID-19 Vaccine ( season) 2023 05/07/2022, 07/10/2021, 12/16/2020, Additional history exists INFLUENZA VACCINE (#1) 2023 2, 12/18/2020, 12/27/2019, [...] age to complete this topic Care Teams Imaging Technologist Relationship Specialty Start Date End Date [place] [address] PCP - General 01/01/23
--- OUTSIDE RECORDS SUMMARY | 2023-12-02 18:22 | XMS_ITS | Encounter Summary ---
Author Organization [facility] Address [address] [address] Care Team Providers Care Printing Pressman Name Role Phone Found, No Pcp Primary [...] on filedocumented in this encounter Care Teams Printing Pressman Relationship Specialty Start Date End Date Found, No Pcp, [address] [place] [address] PCP - General 07/05/23 documented as of this encounter
--- OUTSIDE RECORDS SUMMARY | 2023-12-02 18:22 | XMS_ITS | Encounter Summary ---
Author Organization [facility] Address [address], [place] [address] Care Team Providers Care Oil Sales And Service Rep Name Role Phone Found, No Pcp Primary [...] on filedocumented in this encounter Care Teams Oil Sales And Service Rep Relationship Specialty Start Date End Date Found, No Pcp, [address] [facility] [place] [address] PCP - General 07/05/23 documented as of this encounter
--- OUTSIDE RECORDS SUMMARY | 2023-12-02 18:22 | XMS_ITS | Encounter Summary ---
Author Organization [facility] Address [address] [address] Care Team Providers Care Coke Worker Name Role Phone Found, No Pcp [...] on filedocumented in this encounter Care Teams Coke Worker Relationship Specialty Start Date End Date Found, No Pcp, [address] [place] [address] PCP - General 07/05/23 documented as of this encounter
--- OUTSIDE RECORDS SUMMARY | 2023-12-02 18:22 | XMS_ITS | Encounter Summary ---
Author Organization [facility] Address [address] [address] Care Team Providers Care Bellows Tester Name Role Phone Found, No Pcp [...] on filedocumented in this encounter Care Teams Bellows Tester Relationship Specialty Start Date End Date Found, No Pcp, [address] [place] [address] PCP - General 07/05/23 documented as of this encounter
--- OUTSIDE RECORDS SUMMARY | 2023-12-02 18:22 | XMS_ITS | Encounter Summary ---
Author Organization [facility] Address [address] [address] Care Team Providers Care Paid Intern Name Role Phone Found, No Pcp [...] on filedocumented in this encounter Care Teams Paid Intern Relationship Specialty Start Date End Date Found, No Pcp, [address] [place] [address] PCP - General 07/05/23 documented as of this encounter
--- OUTSIDE RECORDS SUMMARY | 2023-12-02 18:22 | XMS_ITS | Encounter Summary ---
Author Organization [facility] Address [address] [place] [address] Care Team Providers Care Strike Off Machine Operator Name Role Phone Found, No Pcp Primary Care Provider Unavailab le Encounter Details Date Type Department Care Team (Latest Contact Info) Description 07/02/1994 [place] [address] [place] [address] Social History Tobacco Use Types [...] on filedocumented in this encounter Care Teams Strike Off Machine Operator Relationship Specialty Start Date End Date Found, No Pcp, [address] [place] [address] PCP - General 07/05/23 documented as of this encounter
--- OUTSIDE RECORDS SUMMARY | 2023-12-02 18:22 | XMS_ITS | Encounter Summary ---
Author Organization [facility] Address [address] [address] Care Team Providers Care Rug Sample Beveler Name Role Phone Found, No Pcp Primary Care Provider Unavailab le Encounter Details Date Type Department Care Team (Latest Contact Info) Description 07/02/1995 Orders Only [facility] [address] [facility] [address] Social History Tobacco Use Types Packs/Day Years Used Date Smoking Tobacco: Never Assessed Sex and Gender Information Value Date Recorded Sex Assigned at Not on file Gender Identity Not on file Sexual Orientation Not on file documented as of this encounter Plan of Treatment Not on file documented as of this encounter Visit Diagnoses Not on filedocumented in this encounter Care Teams Rug Sample Beveler Relationship Specialty Start Date End Date Found, No Pcp, [address] [place] [address] PCP - General 07/05/23 documented as of this encounter
[2023-12-02] MEDS: OxyCODONE/APAP 5-325 TABLET 1 TAB PO (18:35)
[2023-12-02] MEDS: KETOROLAC 30 MG/ML inj IM (18:49)
== END 2023-12-02 18:56 | disposition home or self-care (01) ==
PROVIDERS: Emergency Provider Family Medicine; PCP Family Medicine
DX: M70.41 Prepatellar bursitis, right knee (principal); Z79.01 Long term (current) use of anticoagulants; Z96.651 Presence of right artificial knee joint
CPT/HCPCS: 73562; 96372; 99284; A9270; J1885

== ENCOUNTER 2023-12-08 20:15 | Outpatient (CLI) | payer OTHER, SELFPAY ==
--- OUTSIDE RECORDS SUMMARY | 2023-12-08 20:17 | XMS_ITS | Clinical Summary ---
Author Organization [facility] Address [address] [place] [address] Care Team Providers Care Real Estate Officer Name Role Phone Found, No Pcp MD Primary Care Provider Unavailab le Source Comments You are receiving this document as you are listed as the primary care provider,follow-up provider, or the patient has been referred to you for consultation.This is in compliance with the Medicare and[facility] Hospital[facility] EHR Incentive Program,which states Providers who transition their patient to another setting of careor provider of care or refers their patient to another provider of care shouldprovide summary care record for each transition of care or referral. [facility] Allergies No known active allergies Medications Medication [...] 156.5 kg (345 lb) 05/14/2023 10:00 AM GRIPS Height 175.3 cm (5' 9) 05/14/2023 10:00 AM GRIPS Body Mass Index 50.95 05/14/2023 10:00 AM GRIPS Plan of Treatment Health Maintenance Due Date Last Done Comments Cervical Cancer Screening Due 1965 Colon Cancer Screening Plan Due 1964 Hep C Screening (Preventive Services) 1964 MTM Covered 1964 Mammogram 1964 HIV Screening (Preventive Services) 1980 HepB (1) 1983 Adult Preventive Visit 01/16/1999 01/16/1998 Cholesterol 2009 01/16/1998 COVID-19 Vaccine ( season) 2023 01/22/2023, 05/07/2022, 07/10/2021, Additional history exists Influenza (#1) 2023 01/22/2023, 11/21, 12/18/2020, Additional history exists Diabetes Screening- (based on age and BMI) 02/10/2026 02/10/2023, 11/09/2022, 07/13/2022, Additional history exists DTaP/Tdap/Td (5 - Tdap) 07/13/2032 07/14/19, 01/02/2012, 12/23/2011, Additional history exists Zoster/Shingles Completed 05/19/2021, 03/30/2019 Pneumococcal Aged Out 07/13/2022, 11/2019, 06/11/2000 No longer eligible based on patient's age to complete this topic HepA Aged Out No longer eligi ble [...] CHOLESTEROL (TOTAL) Routine 01/16/1998 1 1:49 AM GRIPS from Last 3 Months or Most Recently Relevant to Health Maintenance Results * (ABNORMAL) CHOLESTEROL (TOTAL) (01/16/1998 11:49 AM GRIPS) Cholesterol 238(H) <200 mg/dl [facility] Cholesterol Result should not be interpreted without the patient's history of cardiovascular risk factors. [facility] 01/16/1998 11:4 9 AM [facility] 01/16/1998 11:50 AM [facility]IPS Emilio Dewey MD LAB_[address] [facility] [address] [address] from Last 3 Months or Most Recently Relevant to Health Maintenance Care Teams Real Estate Officer Relationship Specialty Start Date End Date Found, No Pcp, [address] [place] [address] PCP - General 07/05/23
--- OUTSIDE RECORDS SUMMARY | 2023-12-08 20:18 | XMS_ITS | Encounter Summary ---
Author Organization [facility] Address [address], [place] [address] Care Team Providers Care Conflict Resolution Professional Name Role Phone Found, No Pcp Primary [...] on filedocumented in this encounter Care Teams Conflict Resolution Professional Relationship Specialty Start Date End Date Found, No Pcp, [address] [place] [address] PCP - General 07/05/23 documented as of this encounter
--- OUTSIDE RECORDS SUMMARY | 2023-12-08 20:18 | XMS_ITS | Encounter Summary ---
Author Organization [facility] Address [address] [address] Care Team Providers Care Crab Fisherman Name Role Phone Found, No Pcp Primary [...] on filedocumented in this encounter Care Teams Crab Fisherman Relationship Specialty Start Date End Date Found, No Pcp, [address] [place] [address] PCP - General 07/05/23 documented as of this encounter
--- OUTSIDE RECORDS SUMMARY | 2023-12-08 20:18 | XMS_ITS | Encounter Summary ---
Author Organization [facility] Address [address] [address] Care Team Providers Care Special Programs Director Name Role Phone Found, No Pcp Primary [...] filedocumented in this encounter Care Teams Special Programs Director Relationship Specialty Start Date End Date Found, No Pcp, [address] [place] [address] PCP - General 07/05/23 documented as of this encounter
--- OUTSIDE RECORDS SUMMARY | 2023-12-08 20:18 | XMS_ITS | Encounter Summary ---
Author Organization [facility] Address [address] [address] Care Team Providers Care Concrete Batching Plant Operator Name Role Phone Found, No Pcp [...] filedocumented in this encounter Care Teams Concrete Batching Plant Operator Relationship Specialty Start Date End Date Found, No Pcp, [address] [place] [address] PCP - General 07/05/23 documented as of this encounter
--- OUTSIDE RECORDS SUMMARY | 2023-12-08 20:18 | XMS_ITS | Encounter Summary ---
Author Organization [facility] Address [address] [address] Care Team Providers Care Underground Truck Operator Name Role Phone Found, No Pcp Primary Care Provider Unavailab le Encounter Details Date Type Department Care Team (Latest Contact Info) Description 06/02/1994 Orders Only Jarod Cooper MD [address] [place] [id number] Social History Tobacco Use Types Packs/Day Years Used Date Smoking Tobacco: Never Assessed Sex and Gender Information Value Date Recorded Sex Assigned at Not on file Gender Identity Not on file Sexual Orientation Not on file documented as of this encounter Plan of Treatment Not on file documented as of this encounter Visit Diagnoses Not on filedocumented in this encounter Care Teams Underground Truck Operator Relationship Specialty Start Date End Date Found, No PcpMD [address] [place] [address] PCP - General 07/05/23 documented as of this encounter
--- OUTSIDE RECORDS SUMMARY | 2023-12-08 20:18 | XMS_ITS | Encounter Summary ---
Author Organization [facility] Address [address] [place] [address] Care Team Providers Care Car Hostler Name Role Phone Found, No Pcp Primary Care Provider Unavailab le Encounter Details Date Type Department Care Team (Latest Contact Info) Description 08/17/1996 Orders Only Paulina Villegas MD [address] [facility] [address] [place] [address] Social History Tobacco Use Types [...] filedocumented in this encounter Care Teams Car Hostler Relationship Specialty Start Date End Date Found, No Pcp, [address] [place] [address] PCP - General 07/05/23 documented as of this encounter
--- OUTSIDE RECORDS SUMMARY | 2023-12-08 20:18 | XMS_ITS | Encounter Summary ---
Author Organization [facility] Address [address], [place] [address] Care Team Providers Care Wide Area Network Administrator Name Role Phone Found, No Pcp [...] on filedocumented in this encounter Care Teams Wide Area Network Administrator Relationship Specialty Start Date End Date Found, No Pcp, [address] [place] [address] PCP - General 07/05/23 documented as of this encounter
--- OUTSIDE RECORDS SUMMARY | 2023-12-08 20:18 | XMS_ITS | Encounter Summary ---
Author Organization [facility] Address [address], [place] [address] Care Team Providers Care Manager Regional Sales Name Role Phone Found, No Pcp Primary Care Provider Unavailab le Encounter Details Date Type Department Care Team (Latest Contact Info) Description 05/12/1998 Orders Only Gacria Grijalva Social History Tobacco Use Types Packs/Day [...] filedocumented in this encounter Care Teams Manager Regional Sales Relationship Specialty Start Date End Date Found, No Pcp, [address] [place] [address] PCP - General 07/05/23 documented as of this encounter
--- OUTSIDE RECORDS SUMMARY | 2023-12-08 20:18 | XMS_ITS | Encounter Summary ---
Author Organization [facility] Address [address], [place] [address] Care Team Providers Care Software Support Representative Name Role Phone Found, No Pcp Primary [...] on filedocumented in this encounter Care Teams Software Support Representative Relationship Specialty Start Date End Date Found, No Pcp, [address] [place] [address] PCP - General 07/05/23 documented as of this encounter
--- OUTSIDE RECORDS SUMMARY | 2023-12-08 20:18 | XMS_ITS | Encounter Summary ---
Author Organization [facility] Address [address] [address] Care Team Providers Care Core Drilling Supervisor Name Role Phone Found, No Pcp [...] on filedocumented in this encounter Care Teams Core Drilling Supervisor Relationship Specialty Start Date End Date Found, No Pcp, [address] [place] [address] PCP - General 07/05/23 documented as of this encounter
--- OUTSIDE RECORDS SUMMARY | 2023-12-08 20:18 | XMS_ITS | Encounter Summary ---
Author Organization [facility] Address [address], [place] [address] Care Team Providers Care Roustabout Crew Leader Name Role Phone Found, No Pcp [...] on filedocumented in this encounter Care Teams Roustabout Crew Leader Relationship Specialty Start Date End Date Found, No Pcp, [address] [place] [address] PCP - General 07/05/23 documented as of this encounter
--- OUTSIDE RECORDS SUMMARY | 2023-12-08 20:18 | XMS_ITS | Encounter Summary ---
Author Organization [facility] Address [address] [address] Care Team Providers Care Direct Marketing Coordinator Name Role Phone Found, No Pcp [...] on filedocumented in this encounter Care Teams Direct Marketing Coordinator Relationship Specialty Start Date End Date Found, No Pcp, [address] [place] [address] PCP - General 07/05/23 documented as of this encounter
--- OUTSIDE RECORDS SUMMARY | 2023-12-08 20:18 | XMS_ITS | Encounter Summary ---
Author Organization [facility] Address [address] [address] Care Team Providers Care It Infrastructure Architect Name Role Phone Found, No Pcp [...] on filedocumented in this encounter Care Teams It Infrastructure Architect Relationship Specialty Start Date End Date Found, No Pcp, [address] [place] [address] PCP - General 07/05/23 documented as of this encounter
--- OUTSIDE RECORDS SUMMARY | 2023-12-08 20:18 | XMS_ITS | Encounter Summary ---
Author Organization [facility] Address [address] [place] [address] Care Team Providers Care Marine Pipefitter Helper Name Role Phone Found, No Pcp Primary Care Provider Unavailab le Encounter Details Date Type Department Care Team (Latest Contact Info) Description 12/22/1997 Orders Only Nikhil Ceja MD [address] [place], [place] [address] Social History Tobacco Use Types Packs/Day Years Used Date Smoking Tobacco: Never Assessed Sex and Gender Information Value Date Recorded Sex Assigned at Not on file Gender Identity Not on file Sexual Orientation Not on file documented as of this encounter Plan of Treatment Not on file documented as of this encounter Visit Diagnoses Not on filedocumented in this encounter Care Teams Marine Pipefitter Helper Relationship Specialty Start Date End Date Found, No Pcp, [address] [place] [address] PCP - General 07/05/23 documented as of this encounter
--- OUTSIDE RECORDS SUMMARY | 2023-12-08 20:18 | XMS_ITS | Encounter Summary ---
Author Organization [facility] Address [address] [place] [address] Care Team Providers Care Charge Manager Name Role Phone Found, No Pcp Primary Care Provider Unavailab le Encounter Details Date Type Department Care Team (Latest Contact Info) Description 07/02/1994 [place] [address] [place] [address] Social History Tobacco Use Types [...] on filedocumented in this encounter Care Teams Charge Manager Relationship Specialty Start Date End Date Found, No Pcp, [address] [place] [address] PCP - General 07/05/23 documented as of this encounter
--- OUTSIDE RECORDS SUMMARY | 2023-12-08 20:18 | XMS_ITS | Encounter Summary ---
Author Organization [facility] Address [address] [address] Care Team Providers Care Hairspring Inspector Name Role Phone Found, No Pcp [...] on filedocumented in this encounter Care Teams Hairspring Inspector Relationship Specialty Start Date End Date Found, No Pcp, [address] [place] [address] PCP - General 07/05/23 documented as of this encounter
--- OUTSIDE RECORDS SUMMARY | 2023-12-08 20:18 | XMS_ITS | Encounter Summary ---
Author Organization [facility] Address [address] [place] [address] Care Team Providers Care Social Media Specialist Name Role Phone Found, No Pcp Primary Care Provider Unavailab le Encounter Details Date Type Department Care Team (Latest Contact Info) Description 06/30/1997 Orders Only Kyree Coronado MD [address] [place], [place] [id number] Social History Tobacco Use Types Packs/Day Years Used Date Smoking Tobacco: Never Assessed Sex and Gender Information Value Date Recorded Sex Assigned at Not on file Gender Identity Not on file Sexual Orientation Not on file documented as of this encounter Plan of Treatment Not on file documented as of this encounter Visit Diagnoses Not on filedocumented in this encounter Care Teams Social Media Specialist Relationship Specialty Start Date End Date Found, No Pcp, [address] [place] [address] PCP - General 07/05/23 documented as of this encounter
--- OUTSIDE RECORDS SUMMARY | 2023-12-08 20:18 | XMS_ITS | Encounter Summary ---
Author Organization [facility] Address [address] [address] Care Team Providers Care Kettle Skimmer Name Role Phone Found, No Pcp Primary Care Provider Unavailab le Encounter Details Date Type Department Care Team (Latest Contact Info) Description 07/06/1994 [place] [address] [place], [place] [address] Social History Tobacco Use Types Packs/Day Years Used Date Smoking Tobacco: Never Assessed Sex and Gender Information Value Date Recorded Sex Assigned at Not on file Gender Identity Not on file Sexual Orientation Not on file documented as of this encounter Plan of Treatment Not on file documented as of this encounter Visit Diagnoses Not on filedocumented in this encounter Care Teams Kettle Skimmer Relationship Specialty Start Date End Date Found, No PcpMD [address] [place] [address] PCP - General 07/05/23 documented as of this encounter
--- OUTSIDE RECORDS SUMMARY | 2023-12-08 20:18 | XMS_ITS | Encounter Summary ---
Author Organization [facility] Address [address], [place] [address] Care Team Providers Care Skein Spooler Name Role Phone Found, No Pcp Primary [...] on filedocumented in this encounter Care Teams Skein Spooler Relationship Specialty Start Date End Date Found, No Pcp, [address] [place] [address] PCP - General 07/05/23 documented as of this encounter
--- OUTSIDE RECORDS SUMMARY | 2023-12-08 20:18 | XMS_ITS | Encounter Summary ---
Author Organization [facility] Address [address] [address] Care Team Providers Care Marketing Operations Coordinator Name Role Phone Found, No Pcp [...] on filedocumented in this encounter Care Teams Marketing Operations Coordinator Relationship Specialty Start Date End Date Found, No Pcp, [address] [place] [address] PCP - General 07/05/23 documented as of this encounter
--- OUTSIDE RECORDS SUMMARY | 2023-12-08 20:18 | XMS_ITS | Encounter Summary ---
Author Organization [facility] Address [address] [address] Care Team Providers Care Lines Tender Name Role Phone Found, No Pcp [...] on filedocumented in this encounter Care Teams Lines Tender Relationship Specialty Start Date End Date Found, No Pcp, [address] [place] [address] PCP - General 07/05/23 documented as of this encounter
--- OUTSIDE RECORDS SUMMARY | 2023-12-08 20:18 | XMS_ITS | Encounter Summary ---
Author Organization [facility] Address [address] [address] Care Team Providers Care Biology Internship Name Role Phone Found, No Pcp [...] on filedocumented in this encounter Care Teams Biology Internship Relationship Specialty Start Date End Date Found, No Pcp, [address] [place] [address] PCP - General 07/05/23 documented as of this encounter
--- OUTSIDE RECORDS SUMMARY | 2023-12-08 20:18 | XMS_ITS | Encounter Summary ---
Author Organization Formerly [facility] Address [address] [place] [address] Care Team Providers Care Collections Professional Name Role Phone Found, No Pcp Primary Care Provider Unavailab le Encounter Details Date Type Department Care Team (Latest Contact Info) Description 08/12/1996 Orders Only Joshua Váz[place] [address] [place] [address] Social History Tobacco Use Types Packs/Day Years Used Date Smoking Tobacco: Never Assessed Sex and Gender Information Value Date Recorded Sex Assigned at Not on file Gender Identity Not on file Sexual Orientation Not on file documented as of this encounter Plan of Treatment Not on file documented as of this encounter Visit Diagnoses Not on filedocumented in this encounter Care Teams Collections Professional Relationship Specialty Start Date End Date Found, No Pcp, [address] [facility] [place] [place] [address] PCP - General 07/05/23 documented as of this encounter
--- OUTSIDE RECORDS SUMMARY | 2023-12-08 20:18 | XMS_ITS | Encounter Summary ---
Author Organization [facility] Address [address], [place] [address] Care Team Providers Care Echo Vascular Technologist Name Role Phone Found, No Pcp [...] on filedocumented in this encounter Care Teams Echo Vascular Technologist Relationship Specialty Start Date End Date Found, No Pcp, [address] [place] [address] PCP - General 07/05/23 documented as of this encounter
--- OUTSIDE RECORDS SUMMARY | 2023-12-08 20:18 | XMS_ITS | Encounter Summary ---
Author Organization [facility] Address [address] [address] Care Team Providers Care Time Cycle Operator Name Role Phone Found, No Pcp [...] on filedocumented in this encounter Care Teams Time Cycle Operator Relationship Specialty Start Date End Date Found, No Pcp, [address] [place] [address] PCP - General 07/05/23 documented as of this encounter
--- OUTSIDE RECORDS SUMMARY | 2023-12-08 20:18 | XMS_ITS | Encounter Summary ---
Author Organization [facility] Address [address], [place] [address] Care Team Providers Care Buffing Wheel Presser Name Role Phone Found, No Pcp Primary [...] filedocumented in this encounter Care Teams Buffing Wheel Presser Relationship Specialty Start Date End Date Found, No Pcp, [address] [place] [address] PCP - General 07/05/23 documented as of this encounter
--- OUTSIDE RECORDS SUMMARY | 2023-12-08 20:18 | XMS_ITS | Encounter Summary ---
Author Organization [facility] Address [address] [place] [address] Care Team Providers Care Farm Planner Name Role Phone Found, No Pcp Primary Care Provider Unavailab le Encounter Details Date Type Department Care Team (Latest Contact Info) Description 09/20/1995 Orders Only Kyree Coronado MD [address] [place], [place] [id number] Social History Tobacco Use Types Packs/Day Years Used Date Smoking Tobacco: Never Assessed Sex and Gender Information Value Date Recorded Sex Assigned at Not on file Gender Identity Not on file Sexual Orientation Not on file documented as of this encounter Plan of Treatment Not on file documented as of this encounter Visit Diagnoses Not on filedocumented in this encounter Care Teams Farm Planner Relationship Specialty Start Date End Date Found, No Pcp, [address] [place] [address] PCP - General 07/05/23 documented as of this encounter
--- OUTSIDE RECORDS SUMMARY | 2023-12-08 20:18 | XMS_ITS | Encounter Summary ---
Author Organization [facility] Address [address], [place] [address] Care Team Providers Care Heeler Machine Name Role Phone Found, No Pcp Primary [...] on filedocumented in this encounter Care Teams Heeler Machine Relationship Specialty Start Date End Date Found, No Pcp, [address] [place] [address] PCP - General 07/05/23 documented as of this encounter
--- OUTSIDE RECORDS SUMMARY | 2023-12-08 20:18 | XMS_ITS | Encounter Summary ---
Author Organization [facility] Address [address], [place] [address] Care Team Providers Care Electrical Hardware Engineer Name Role Phone Found, No Pcp [...] filedocumented in this encounter Care Teams Electrical Hardware Engineer Relationship Specialty Start Date End Date Found, No Pcp, [address] [place] [address] PCP - General 07/05/23 documented as of this encounter
--- OUTSIDE RECORDS SUMMARY | 2023-12-08 20:18 | XMS_ITS | Encounter Summary ---
Author Organization [facility] Address [address] [place] [address] Care Team Providers Care Electrical Maintenance Mechanic Name Role Phone Found, No Pcp Primary Care Provider Unavailab le Encounter Details Date Type Department Care Team (Latest Contact Info) Description 06/12/1999 Orders Only Inés Lozada MD [address] [place] [address] Social History Tobacco Use Types Packs/Day Years Used Date Smoking Tobacco: Never Assessed Sex and Gender Information Value Date Recorded Sex Assigned at Not on file Gender Identity Not on file Sexual Orientation Not on file documented as of this encounter Plan of Treatment Not on file documented as of this encounter Visit Diagnoses Not on filedocumented in this encounter Care Teams Electrical Maintenance Mechanic Relationship Specialty Start Date End Date Found, No PcpMD [address] [place] [address] PCP - General 07/05/23 documented as of this encounter
--- OUTSIDE RECORDS SUMMARY | 2023-12-08 20:18 | XMS_ITS | Encounter Summary ---
Author Organization [facility] Address [address], [place] [address] Care Team Providers Care Tire Repair Mechanic Name Role Phone Found, No Pcp Primary Care Provider Unavailab le Encounter Details Date Type Department Care Team (Latest Contact Info) Description 07/02/1995 Orders Only Be Blum [facility] [address] [facility], [address] Social History Tobacco Use Types [...] on filedocumented in this encounter Care Teams Tire Repair Mechanic Relationship Specialty Start Date End Date Found, No Pcp, [address] [place] [address] PCP - General 07/05/23 documented as of this encounter
--- OUTSIDE RECORDS SUMMARY | 2023-12-08 20:18 | XMS_ITS | Encounter Summary ---
Author Organization [facility] Address [address] [address] Care Team Providers Care Paper Slitter Name Role Phone Found, No Pcp Primary [...] on filedocumented in this encounter Care Teams Paper Slitter Relationship Specialty Start Date End Date Found, No Pcp, [address] [place] [address] PCP - General 07/05/23 documented as of this encounter
--- OUTSIDE RECORDS SUMMARY | 2023-12-08 20:18 | XMS_ITS | Encounter Summary ---
Author Organization [facility] Address [address] [address] Care Team Providers Care Information Security Systems Instructor Name Role Phone Found, No Pcp [...] on filedocumented in this encounter Care Teams Information Security Systems Instructor Relationship Specialty Start Date End Date Found, No Pcp, [address] [place] [address] PCP - General 07/05/23 documented as of this encounter
--- OUTSIDE RECORDS SUMMARY | 2023-12-08 20:18 | XMS_ITS | Encounter Summary ---
Author Organization [facility] Address [address] [address] Care Team Providers Care Finish Photographer Name Role Phone Found, No Pcp Primary [...] on filedocumented in this encounter Care Teams Finish Photographer Relationship Specialty Start Date End Date Found, No Pcp, [address] [place] [address] PCP - General 07/05/23 documented as of this encounter
--- OUTSIDE RECORDS SUMMARY | 2023-12-08 20:18 | XMS_ITS | Encounter Summary ---
Author Organization [facility] Address [address], [place] [address] Care Team Providers Care Dynamics Ax Solution Architect Name Role Phone Found, No Pcp Primary Care Provider Unavailab le Encounter Details Date Type Department Care Team (Latest Contact Info) Description 01/15/1996 Orders Only Jarod Cooper MD [address] [place] [id number] Social History Tobacco Use Types Packs/Day Years Used Date Smoking Tobacco: Never Assessed Sex and Gender Information Value Date Recorded Sex Assigned at Not on file Gender Identity Not on file Sexual Orientation Not on file documented as of this encounter Plan of Treatment Not on file documented as of this encounter Visit Diagnoses Not on filedocumented in this encounter Care Teams Dynamics Ax Solution Architect Relationship Specialty Start Date End Date Found, No PcpMD [address] [place] [address] PCP - General 07/05/23 documented as of this encounter
--- OUTSIDE RECORDS SUMMARY | 2023-12-08 20:18 | XMS_ITS | Encounter Summary ---
Author Organization [facility] Address [address], [place] [address] Care Team Providers Care Quilting Machine Operator Name Role Phone Found, No [...] on filedocumented in this encounter Care Teams Quilting Machine Operator Relationship Specialty Start Date End Date Found, No Pcp, [address] [place] [address] PCP - General 07/05/23 documented as of this encounter
--- OUTSIDE RECORDS SUMMARY | 2023-12-08 20:18 | XMS_ITS | Encounter Summary ---
Author Organization [facility] Address [address] [place] [address] Care Team Providers Care Utility Tender Carding Name Role Phone Found, No Pcp Primary Care Provider Unavailab le Encounter Details Date Type Department Care Team (Late st Contact Info) Description 06/05/1995 Orders Only [facility] Scott Pedroza MD [address] [address] Social History Tobacco Use Types Packs/Day Years Used Date Smoking Tobacco: Never Assessed Sex and Gender Information Value Date Recorded Sex Assigned at Not on file Gender Identity Not on file Sexual Orientation Not on file documented as of this encounter Plan of Treatment Not on file documented as of this encounter Visit Diagnoses Not on filedocumented in this encounter Care Teams Utility Tender Carding Relationship Specialty Start Date End Date Found, No Pcp, [address] [place] [address] PCP - General 07/05/23 documented as of this encounter
--- OUTSIDE RECORDS SUMMARY | 2023-12-08 20:18 | XMS_ITS | Encounter Summary ---
Author Organization [facility] Address [address] [address] Care Team Providers Care Fabric Sourcer Name Role Phone Found, No Pcp Primary [...] on filedocumented in this encounter Care Teams Fabric Sourcer Relationship Specialty Start Date End Date Found, No Pcp, [address] [place] [address] PCP - General 07/05/23 documented as of this encounter
--- OUTSIDE RECORDS SUMMARY | 2023-12-08 20:19 | XMS_ITS | Clinical Summary ---
Author Organization [facility] Address [place], [place] [address] Care Team Providers Care Electrical Mechanic Name Role Phone Joann Brown DO Primary Care Provider [phone] Allergies No known active allergies Medications Medication [...] Team Description 11/18/2023 4:25 PM CDT Telemedicine [facility] [address] [place] [phone] Rita Arnold, TENTERING MACHINE OFF BEARER URI; Telehealth 11/18/2023 Travel 11/16/2023 Refill [facility] [address] [place] [address] Shaqra, Joann Arianna, DO Refill Request (Lorazepam) 10/20/2023 Refill [facility] [address] [place] [address] Shaqra, Joann Arianna, DO Refill Request 09/10/2023 10:10 AM CDT Preop Visit [facility] [address] [place] [address] Shaqra, Joann Arianna, DO Preoperative Exam (09/30/23 - R total knee - [facility] - Dr. Javier) 09/10/2023 8:30 AM CDT Office Visit [facility] [address] [facility] [address] [place] [phone] Ayleen Berrios MD Consult (Initial Office Consult/Recent ECHO and Holter /New onset atrial fibrillation/PT states feeling pretty good./Discuss labs.) 09/10/2023 Travel 09/08/2023 9:00 AM CDT Ancillary Procedure [address] [place] [address] 09/08/2023 Travel from Last 3 Months Immunizations Name [...] Description 01/05/2024 3:00 PM CDT Office Visit [facility] [address] [place] [address] Sebastien Rodriguez MD [address] [place] [address] Health Maintenance Due Date Last Done Comments [...] AM CDT New onset atrial fibrillation (HC) ANTI HIV 1/2 Routine 09/01/2023 3:17 PM CDT Screening for HIV (human immunodeficiency virus) LIPID PANEL W REFLEX MEASURED LDL Routine 09/01/2023 3:17 PM CDT Pure hypercholesterolemia SCAN-MAMMOGRAPHY REPORT 10/03/2020 12:00 AM CDT MEDICAL VAN DRIVER THIN PREP PAP SCREEN IMAGED Routine 04/15/2020 8:45 AM AGILE JAVA DEVELOPER Pap smear for cervical cancer screening ANTI HCV Routine 03/30/2019 12:27 PM AGILE JAVA DEVELOPER Need for hepatitis C screening test SCAN-COLONOSCOPY 12/30/2015 12:0 0 AM CDT from Last 3 Months or Most Recently Relevant to Health Maintenance Results * EXTENDED HOLTER (09/28/2023) Joann Brown DO CARDIAC SERVICES ORD * RED CELL MORPHOLOGY (09/10/2023 11:17 AM CDT) RBC COMMENT RBC morphology appears normal RBC morphology appears normal, RBC morphology within normal limits for newborns. 09/10/2023 12:[address] [facility] Blood BLOOD SPECIMEN / Unknown Venipuncture / Unknown 09/10/2023 11:17 AM CDT 09/10/2023 11:18 AM CDT Joann Brown DO HEMATOLOGY [facility] [address] [place] [address], * PLATELET ESTIMATE (09/10/2023 11:17 AM CDT) PLATELET ESTIMATE Adequate Adequate, No estimate 09/10/2023 12:[address] [facility] Blood BLOOD SPECIMEN / Unknown Venipuncture / Unknown 09/10/2023 11:17 AM CDT 09/10/2023 11:18 AM CDT Joann Brown DO HEMATOLOGY Performing Organization Address City/[facility]/ZIP Co de Phone Number [facility] [address] [place] [address], * HEMOGLOBIN (09/10/2023 11:17 AM CDT) Pathologist [facility] HEMOGLOBIN 13.1 12.0 - 16.0 g/dL 09/10/2023 12:[address] [facility] MCV 82 80 - 100 fL 09/10/2023 12:[address] [facility] Blood BLOOD SPECIMEN / Unknown Venipuncture / Unknown 09/10/2023 11:17 AM CDT 09/10/2023 11:18 AM CDT Joann Brown DO HEMATOLOGY Performing Organization Address City/[facility] Co de Phone Number [facility] [address] [place] [address], * EKG 12 LEAD (09/10/2023 8:22 AM CDT) Pathologist [facility] Interpretation Normal sinus rhythm Normal ECG No previous ECGs available Ventricular Rate 99 BPM Atrial Rate 99 BPM P-R Interval 172 ms QRS Duration 90 ms QT 350 ms QTc 449 ms P Monument 68 degrees R Monument 49 degrees T Monument 48 degrees 09/10/2023 8:22 AM CDT 09/22/2023 1:11 PM CDT Ayleen Berrios MD EKG ORD * ECHO TTE COMPLETE WO CONTRAST (09/08/2023 9:24 AM CDT) AORTIC VALVE MEAN PG 5 mmHg EJECTION FRACTION 52 % LVEDD 4.8 cm EJECTION FRACTION 50 - 55% Anatomical Region Laterality Modality Ultrasound 09/08/2023 8:56 AM CDT Narrative 09/08/2023 9:45 AM CDT ECHOCARDIOGRAM FIDE WHITE ?Accession#: ?? [id number] : ?1965 58 years Study Date: ?? 09/08/2023 8:56:49 AM Gender: F ? BP: ? 147/88 mmHg Height: 173.00 cm ? BSA: ?2.53 m? ? ? Weight: 150.00 kg ? Tech: ? HMG ?Referring MD: JOANN BROWN Site: ? [facility] Reading Location: MOBILE OP Patient Location: Outpatient. [...] . This study was interpreted by an [facility] accredited facility. ??Final ?? Procedure Note Meeta Dodd, [facility] - 09/08/2023 ECHOCARDIOGRAM FIDE WHITE : 1965 58 years Study Date: 09/08/2023 8:56:49 AM Gender: F BP: 147/88 mmHg Height: 173.00 cm BSA: 2.53 m? ? ? Weight: 150.00 kg Tech: [facility] Referring MD: JOANN BROWN Site: [facility] Reading Location: [place] [facility] Patient Location: Outpatient. Procedure: 2D, Color [...] . This study was interpreted by an [facility] accredited facility. Final Joann Brown DO ECHO ORD * (ABNORMAL) LIPID PANEL W REFLEX MEASURED LDL (09/01/2023 3:17 PM CDT) CHOLESTEROL,TOTAL 264(H) 100 - 199 mg/dL 09/01/2023 11:47 PM CDT [facility] Comment: Cholesterol, Total Reference Ranges Desirable <200 mg/dL Borderline 200-239 mg/dL High >=240 mg/dL TRIGLYCERIDES 156(H) <150 mg/dL 09/01/2023 11:47 PM CDT [facility] HDL CHOLESTEROL 73 >40 mg/dL 11:47 PM CDT [facility] NON-HDL CHOLESTEROL 191(H) <145 mg/dl 09/01/2023 11:47 PM CDT [facility] CHOL/HDL RATIO 3.62 <4.50 09/01/2023 11:47 PM CDT [facility] LDL CHOLESTEROL 160(H) <=130 mg/dL 09/01/2023 11:47 PM CDT [facility] VLDL CHOLESTEROL 31(H) <=30 mg/dL 09/01/2023 11:47 PM CDT [facility] PROVIDER ORDERED STATUS RANDOM 09/01/2023 11:47 PM CDT [facility] Blood BLOOD SPECIMEN / Unknown Venipuncture / Unknown 09/01/2023 3:17 PM CDT 09/01/2023 3:19 PM CDT Joann Brown DO CHEMISTRY [facility] [address] [place] [address], * ANTI HIV 1/2 [86247.0] (09/01/2023 3:17 PM CDT) HIV-1/HIV-2 SCREEN Non-Reacti ve Non-Reacti ve 09/01/2023 11:34 PM CDT [facility] Comment:HIV-1 p24 and HIV-1/ HIV-2 Ab Not Detected. Blood BLOOD SPECIMEN / Unknown Venipuncture / Unknown 09/01/2023 3:17 PM CDT 09/01/2023 3:19 PM CDT Joann Brown DO SEND OUTS [facility] [address] [place] [address], [place] * SCAN-MAMMOGRAPHY REPORT (10/03/2020 12:00 AM CDT) Anatomical Region Laterality Modality Other Scanner OTHER * MEDICAL VAN DRIVER THIN PREP PAP SCREEN IMAGED [[id number]] (04/15/2020 8:45 AM AGILE JAVA DEVELOPER) Case Report Gynecologic Cytology Report ? Case: [id number] ? Authorizing Provider: ??Sherrie Doyle MD ? Collected: ? 04/15/2020 0845 ? Ordering Location: ? [facility] ?? Received: ?04/15/2020 1020 ? Clinic ? First Screen: ?Ibrahima, Giselle ? Specimen: ?MEDICAL VAN DRIVER ThinPrep Vial Screening, Cervical ? 04/23/2020 2:58 PM AGILE JAVA DEVELOPER [facility] INTERPRETATION/ RESULT NEGATIVE FOR INTRAEPITHELIAL LESION OR MALIGNANCY (NIL) (none) 04/23/2020 2:58 PM AGILE JAVA DEVELOPER [facility] IMEN ADEQUACY Satisfactory for evaluation Endocervical component present 04/23/2020 2:58 PM AGILE JAVA DEVELOPER [facility] HPV REQUEST HPV and PAP 04/23/2020 2:58 PM AGILE JAVA DEVELOPER [facility] Date of LMP uncertain 04/23/2020 2:58 PM AGILE JAVA DEVELOPER [facility] Last Pap Date 03/18/17 04/23/2020 2:58 PM AGILE JAVA DEVELOPER [facility] Last Pap Result NIL 2:58 PM AGILE JAVA DEVELOPER [facility] Abnormal Pap or [place] Bx in last 5 years No 04/23/2020 2:58 PM AGILE JAVA DEVELOPER [facility] Menstrual Status Postmenopausal 04/23/2020 2:58 PM AGILE JAVA DEVELOPER [facility] [place] Bx Done Today No 04/23/2020 2:58 PM AGILE JAVA DEVELOPER [facility] Additional Information None given 04/23/2020 2:58 PM AGILE JAVA DEVELOPER [facility] Comment: Cytology is screened at [facility] - [address], [place] [address] and [facility] - [address] [facility] [place] [address] and [facility] - [address] [facility] [place] [address] Interpreted at [facility] - [address], [place] [address] Automated Review Successful 04/23/2020 2:58 PM AGILE JAVA DEVELOPER [facility] Comment:Specimen processed s uccessfully by automated critical care cns device, ThinPrep Imaging System, [employer] ANCILLARY TESTING MEDICAL VAN DRIVER HPV Ordered, Please see separate report 04/23/2020 2:58 PM AGILE JAVA DEVELOPER [facility] Note The pap test is a screening technique, not a diagnostic procedure. It is used primarily to screen for squamous cancers and precursor lesions. Published studies have shown that it is subject to both false negative and false positive results. The pap test should not be used as the sole means to diagnose or exclude pre-malignant and malignant lesions. 04/23/2020 2:58 PM AGILE JAVA DEVELOPER [facility]AL [facility] Other (Cervical) Non-Blood / Unknown 04/15/2020 8:45 AM AGILE JAVA DEVELOPER 04/15/2020 10:20 AM AGILE JAVA DEVELOPER Sherrie Doyle MD PATHOLOGY/CYTOLOGY [facility] [address] [place] [address], * ANTI HCV (03/30/2019 12:27 PM AGILE JAVA DEVELOPER) HEPATITIS C ANTIBODY Non-React chiquita Non-React chiquita 03/30/2019 7:09 PM AGILE JAVA DEVELOPER [facility] Comment:Antibodies to HCV no t detected; does not exclude the possibility of exposure to HCV. Blood BLOOD SPECIMEN / Unknown Butterfly / Unknown 03/30/2019 12:27 PM AGILE JAVA DEVELOPER 03/30/2019 12:27 PM AGILE JAVA DEVELOPER Sherrie Doyle MD SEND OUTS Performing Organization Address [facility] Co de Phone Number [facility] [address] [place] [address], [place] * SCAN-COLONOSCOPY (12/30/2015 12:00 AM CDT) Scanner OTHER from Last 3 Months or Most Recently Relevant to Health Maintenance Care Teams Electrical Mechanic Relationship Specialty Start Date End Date Joann Brown DO [address] [place] [address] PCP - General Family Practice 07/13/22
--- OUTSIDE RECORDS SUMMARY | 2023-12-08 20:19 | XMS_ITS | Referral Summary ---
Author Organization [facility] Address [address] [place] [address]. [place] [address] Care Team Providers Care Conservator Artifacts Name Role Phone Mp Brown DO Primary Care Provider Allergies No [...] of Treatment Not on file Care Teams Conservator Artifacts Relationship Specialty Start Date End Date Mp Brown DO [address] [place] [address] PCP - General 01/01/23
--- OUTSIDE RECORDS SUMMARY | 2023-12-08 20:19 | XMS_ITS | Clinical Summary ---
Author Organization [facility] Address [address] [place] [address]. [place] [address] Care Team Providers Care Qa Test Analyst Name Role Phone Mp Brown DO Primary Care Provider [phone] Allergies No known active allergies Medications Medication [...] age to complete this topic Care Teams Qa Test Analyst Relationship Specialty Start Date End Date [place] [address] [address] PCP - General 01/01/23
--- NOTE | 2023-12-08 20:30 | MR_ITS ---
[address] [address] Phone:?[phone] Fax:?[phone] Referring Physician Information: Cheyenne Millard [address] [employer] [address] Phone:?[phone] Fax:?[phone] Patient:?Fide Millan D.O.B:?1965 Sex:?Female Phone:?[phone] [facility] MRN:?[id number] Exam Date:?12/08/2023 EXAM: MRI of the RIGHT KNEE, without contrast CLINICAL HISTORY: Ongoing right knee pain. Evaluate for extensor mechanism injury. COMPARISONS: Plain radiographs 12/02/2023. Plain radiographs 11/10/2023. Plain radiographs 09/30/2023. Plain radiographs 07/27/2023. TECHNICAL: MR sequences of the right knee: sagittals: PD warp, STIR warp coronals: PD, STIR warp axials: PD warp, STIR warp CONTRAST: None SEDATION: None FINDINGS: There are surgical changes status post total right knee arthroplasty occurring approximately 2 months ago. Extensive ill-defined intermediate proton density signal throughout the infrapatellar fat pad and suprapatellar recess is noted. Extensive intermediate proton density signal throughout the patellar tendon is noted. No discrete fluid intense retracted tendon tear. The quadriceps tendon is intact. No patella asuncion or patella baja. No periprosthetic fracture, dislocation, osteolysis, or loosening is seen although it must be noted that evaluation is markedly compromised by marked metallic hardware artifact. The ligamentous structures are not well evaluated because of marked metallic hardware artifact. There is mild diffuse muscular atrophy. IMPRESSION: 1. Surgical changes status post total right knee arthroplasty occurring approximately 2 months ago. Correlate with surgical history. 2. Extensive ill-defined intermediate signal throughout the infrapatellar fat pad and suprapatellar recess may reflect postoperative edema, synovitis, and or early ill-defined scarring but is nonspecific. 3. Extensive intermediate signal throughout the patellar tendon likely reflects postoperative change (although tendinopathy and ill-defined partial tearing are not completely excluded). No discrete fluid intense retracted tendon tear. Intact quadriceps tendon. No patella asuncion or patella baja. 4. No periprosthetic fracture, dislocation, osteolysis, or loosening is seen although it must be noted that evaluation is markedly compromised by marked metallic hardware artifact. The ligamentous structures are not well evaluated because of marked metallic hardware artifact. 5. Mild diffuse muscular atrophy. RCB Electronically signed on 12/09/2023 8:52:00 AM by Shane Leon M.D.
== END 2023-12-08 20:16 | disposition home or self-care (01) ==
LOC: MRI 20:16
PROVIDERS: PCP Family Medicine; Visit Provider Physician Assistant
DX: M25.561 Pain in right knee (principal); M70.51 Other bursitis of knee, right knee; Z96.651 Presence of right artificial knee joint
CPT/HCPCS: 73721

== ENCOUNTER 2023-12-17 11:20 | Outpatient (CLI) | payer OTHER, SELFPAY ==
--- OUTSIDE RECORDS SUMMARY | 2023-12-17 11:22 | XMS_ITS | Encounter Summary ---
Author Organization [facility] Address [address], [place] [address] Care Team Providers Care Temperature Regulator Pyrometer Name Role Phone Found, No Pcp Primary [...] on filedocumented in this encounter Care Teams Temperature Regulator Pyrometer Relationship Specialty Start Date End Date Found, No Pcp, [address] [place] [address] PCP - General 07/05/23 documented as of this encounter
--- OUTSIDE RECORDS SUMMARY | 2023-12-17 11:22 | XMS_ITS | Encounter Summary ---
Author Organization [facility] Address [address] [address] Care Team Providers Care Middleware Engineer Name Role Phone Found, No Pcp [...] on filedocumented in this encounter Care Teams Middleware Engineer Relationship Specialty Start Date End Date Found, No Pcp, [address] [place] [address] PCP - General 07/05/23 documented as of this encounter
--- OUTSIDE RECORDS SUMMARY | 2023-12-17 11:22 | XMS_ITS | Encounter Summary ---
Author Organization Replaced by [facility] Address [address] [address] Care Team Providers Care Rn Maternity Name Role Phone Found, No Pcp Primary [...] on filedocumented in this encounter Care Teams Rn Maternity Relationship Specialty Start Date End Date Found, No Pcp, [address] [place] [address] PCP - General 07/05/23 documented as of this encounter
--- OUTSIDE RECORDS SUMMARY | 2023-12-17 11:22 | XMS_ITS | Encounter Summary ---
Author Organization [facility] Address [address] [place] [address] Care Team Providers Care Thresher Broomcorn Name Role Phone Found, No Pcp Primary Care Provider Unavailab le Encounter Details Date Type Department Care Team (Latest Contact Info) Description 08/12/1996 Orders Only Joshua Váz[place] [address] [place] [address] Social History Tobacco Use Types Packs/Day Years Used Date Smoking Tobacco: Never Assessed Sex and Gender Information Value Date Recorded Sex Assigned at Not on file Gender Identity Not on file Sexual Orientation Not on file documented as of this encounter Plan of Treatment Not on file documented as of this encounter Visit Diagnoses Not on filedocumented in this encounter Care Teams Thresher Broomcorn Relationship Specialty Start Date End Date Found, No Pcp, [address] [facility] [address] PCP - General 07/05/23 documented as of this encounter
--- OUTSIDE RECORDS SUMMARY | 2023-12-17 11:22 | XMS_ITS | Encounter Summary ---
Author Organization [facility] Address [address] [address] Care Team Providers Care Table Games Dealer Name Role Phone Found, No Pcp Primary [...] on filedocumented in this encounter Care Teams Table Games Dealer Relationship Specialty Start Date End Date Found, No Pcp, [address] [place] [address] PCP - General 07/05/23 documented as of this encounter
--- OUTSIDE RECORDS SUMMARY | 2023-12-17 11:22 | XMS_ITS | Encounter Summary ---
Author Organization [facility] Address [address] [place] [address] Care Team Providers Care Jointer Operator Name Role Phone Found, No Pcp Primary Care Provider Unavailab le Encounter Details Date Type Department Care Team (Latest Contact Info) Description 08/17/1996 Orders Only Paulina Villegas MD [address] [facility] [address] [place] [address] Social History Tobacco Use Types [...] on filedocumented in this encounter Care Teams Jointer Operator Relationship Specialty Start Date End Date Found, No Pcp, [address] [place] [address] PCP - General 07/05/23 documented as of this encounter
--- OUTSIDE RECORDS SUMMARY | 2023-12-17 11:22 | XMS_ITS | Encounter Summary ---
Author Organization [facility] Address [address], [place] [address] Care Team Providers Care Supervisor Ticket Sales Name Role Phone Found, No Pcp [...] filedocumented in this encounter Care Teams Supervisor Ticket Sales Relationship Specialty Start Date End Date Found, No Pcp, [address] [place] [address] PCP - General 07/05/23 documented as of this encounter
--- OUTSIDE RECORDS SUMMARY | 2023-12-17 11:22 | XMS_ITS | Encounter Summary ---
Author Organization [facility] Address [address] [place] [address] Care Team Providers Care Traveling Secretary Name Role Phone Found, No Pcp Primary Care Provider Unavailab le Encounter Details Date Type Department Care Team (Latest Contact Info) Description 06/30/1997 Orders Only Kyree Coronado MD [address] [place], [place] [id number] Social History Tobacco Use Types Packs/Day Years Used Date Smoking Tobacco: Never Assessed Sex and Gender Information Value Date Recorded Sex Assigned at Not on file Gender Identity Not on file Sexual Orientation Not on file documented as of this encounter Plan of Treatment Not on file documented as of this encounter Visit Diagnoses Not on filedocumented in this encounter Care Teams Traveling Secretary Relationship Specialty Start Date End Date Found, No Pcp, [address] [place] [address] PCP - General 07/05/23 documented as of this encounter
--- OUTSIDE RECORDS SUMMARY | 2023-12-17 11:22 | XMS_ITS | Encounter Summary ---
Author Organization [facility] Address [address] [address] Care Team Providers Care Room Maid Name Role Phone Found, No Pcp Primary [...] on filedocumented in this encounter Care Teams Room Maid Relationship Specialty Start Date End Date Found, No Pcp, [address] [place] [address] PCP - General 07/05/23 documented as of this encounter
--- OUTSIDE RECORDS SUMMARY | 2023-12-17 11:22 | XMS_ITS | Encounter Summary ---
Author Organization [facility] Address [address], [place] [address] Care Team Providers Care Segmental Paver Installer Name Role Phone Found, No Pcp [...] on filedocumented in this encounter Care Teams Segmental Paver Installer Relationship Specialty Start Date End Date Found, No Pcp, [address] [facility] [place] [place] [address] PCP - General 07/05/23 documented as of this encounter
--- OUTSIDE RECORDS SUMMARY | 2023-12-17 11:22 | XMS_ITS | Encounter Summary ---
Author Organization [facility] Address [address] [address] Care Team Providers Care Reconciling Clerk Name Role Phone Found, No Pcp Primary Care Provider Unavailab le Encounter Details Date Type Department Care Team (Latest Contact Info) Description 01/15/1996 Orders Only Jarod Cooper MD [address] [place] [id number] Social History Tobacco Use Types Packs/Day Years Used Date Smoking Tobacco: Never Assessed Sex and Gender Information Value Date Recorded Sex Assigned at Not on file Gender Identity Not on file Sexual Orientation Not on file documented as of this encounter Plan of Treatment Not on file documented as of this encounter Visit Diagnoses Not on filedocumented in this encounter Care Teams Reconciling Clerk Relationship Specialty Start Date End Date Found, No PcpMD [address] [facility] [address] PCP - General 07/05/23 documented as of this encounter
--- OUTSIDE RECORDS SUMMARY | 2023-12-17 11:22 | XMS_ITS | Clinical Summary ---
Author Organization [facility] Address [address] [place] [address] Care Team Providers Care Workers Compensation Adjuster Name Role Phone Found, No Pcp MD Primary Care Provider Unavailab le Source Comments You are receiving this document as you are listed as the primary care provider,follow-up provider, or the patient has been referred to you for consultation.This is in compliance with the Medicare and[facility] Hospitalca[facility] EHR Incentive Program,which states Providers who transition their patient to another setting of careor provider of care or refers their patient to another provider of care shouldprovide summary care record for each transition of care or referral. [facility] Allergies No known active allergies Medications Medication [...] 156.5 kg (345 lb) 05/14/2023 10:00 AM PRODUCTION TECH Height 175.3 cm (5' 9) 05/14/2023 10:00 AM PRODUCTION TECH Body Mass Index 50.95 05/14/2023 10:00 AM PRODUCTION TECH Plan of Treatment Health Maintenance Due Date [...] CHOLESTEROL (TOTAL) Routine 01/16/1998 1 1:49 AM PRODUCTION TECH from Last 3 Months or Most Recently Relevant to Health Maintenance Results * (ABNORMAL) CHOLESTEROL (TOTAL) (01/16/1998 11:49 AM PRODUCTION TECH) Cholesterol 238(H) <200 mg/dl [facility] Cholesterol Result should not be interpreted without the patient's history of cardiovascular risk factors. [facility] 01/16/1998 11:4 9 AM PRODUCTION TECH 01/16/1998 11:50 AM PRODUCTION TECH Emilio Dewey MD LAB_1 [facility] [address] [address] from Last 3 Months or Most Recently Relevant to Health Maintenance Care Teams Workers Compensation Adjuster Relationship Specialty Start Date End Date Found, No Pcp, [address] [place] [address] PCP - General 07/05/23
--- OUTSIDE RECORDS SUMMARY | 2023-12-17 11:22 | XMS_ITS | Encounter Summary ---
Author Organization [facility] Address [address], [place] [address] Care Team Providers Care Freelance Designer Name Role Phone Found, No Pcp Primary [...] on filedocumented in this encounter Care Teams Freelance Designer Relationship Specialty Start Date End Date Found, No Pcp, [address] [place] [address] PCP - General 07/05/23 documented as of this encounter
--- OUTSIDE RECORDS SUMMARY | 2023-12-17 11:22 | XMS_ITS | Encounter Summary ---
Author Organization [facility] Address [address] [address] Care Team Providers Care Arts Education Teacher Name Role Phone Found, No Pcp [...] on filedocumented in this encounter Care Teams Arts Education Teacher Relationship Specialty Start Date End Date Found, No Pcp, [address] [place] [address] PCP - General 07/05/23 documented as of this encounter
--- OUTSIDE RECORDS SUMMARY | 2023-12-17 11:22 | XMS_ITS | Encounter Summary ---
Author Organization [facility] Address [address] [address] Care Team Providers Care Automobile Repossessor Name Role Phone Found, No Pcp Primary [...] on filedocumented in this encounter Care Teams Automobile Repossessor Relationship Specialty Start Date End Date Found, No Pcp, [address] [place] [address] PCP - General 07/05/23 documented as of this encounter
--- OUTSIDE RECORDS SUMMARY | 2023-12-17 11:22 | XMS_ITS | Encounter Summary ---
Author Organization [facility] Address [address], [place] [address] Care Team Providers Care Personal Care Attendant Name Role Phone Found, No Pcp [...] on filedocumented in this encounter Care Teams Personal Care Attendant Relationship Specialty Start Date End Date Found, No Pcp, [address] [place] [address] PCP - General 07/05/23 documented as of this encounter
--- OUTSIDE RECORDS SUMMARY | 2023-12-17 11:22 | XMS_ITS | Encounter Summary ---
Author Organization [facility] Address [address], [place] [address] Care Team Providers Care Bird Tender Name Role Phone Found, No Pcp [...] on filedocumented in this encounter Care Teams Bird Tender Relationship Specialty Start Date End Date Found, No Pcp, [address] [place] [address] PCP - General 07/05/23 documented as of this encounter
--- OUTSIDE RECORDS SUMMARY | 2023-12-17 11:22 | XMS_ITS | Encounter Summary ---
Author Organization [facility] Address [address], [place] [address] Care Team Providers Care Greenbelt Name Role Phone Found, No Pcp Primary [...] on filedocumented in this encounter Care Teams Greenbelt Relationship Specialty Start Date End Date Found, No Pcp, [address] [place] [address] PCP - General 07/05/23 documented as of this encounter
--- OUTSIDE RECORDS SUMMARY | 2023-12-17 11:22 | XMS_ITS | Encounter Summary ---
Author Organization [facility] Address [address] [place] [address] Care Team Providers Care Ceiling Insulation Blower Name Role Phone Found, No Pcp Primary Care Provider Unavailab le Encounter Details Date Type Department Care Team (Latest Contact Info) Description 09/20/1995 Orders Only Kyree Coronado MD [address] [place], [place] [id number] Social History Tobacco Use Types Packs/Day Years Used Date Smoking Tobacco: Never Assessed Sex and Gender Information Value Date Recorded Sex Assigned at Not on file Gender Identity Not on file Sexual Orientation Not on file documented as of this encounter Plan of Treatment Not on file documented as of this encounter Visit Diagnoses Not on filedocumented in this encounter Care Teams Ceiling Insulation Blower Relationship Specialty Start Date End Date Found, No Pcp, [address] [place] [address] PCP - General 07/05/23 documented as of this encounter
--- OUTSIDE RECORDS SUMMARY | 2023-12-17 11:22 | XMS_ITS | Encounter Summary ---
Author Organization [facility] Address [address], [place] [address] Care Team Providers Care Fat Purification Worker Name Role Phone Found, No Pcp [...] on filedocumented in this encounter Care Teams Fat Purification Worker Relationship Specialty Start Date End Date Found, No Pcp, [address] [place] [address] PCP - General 07/05/23 documented as of this encounter
--- OUTSIDE RECORDS SUMMARY | 2023-12-17 11:22 | XMS_ITS | Encounter Summary ---
Author Organization [facility] Address [address] [place] [address] Care Team Providers Care Theatrical Agent Name Role Phone Found, No Pcp Primary Care Provider Unavailab le Encounter Details Date Type Department Care Team (Latest Contact Info) Description 06/12/1999 Orders Only Inés Lozada MD [address] [place] [address] Social History Tobacco Use Types Packs/Day Years Used Date Smoking Tobacco: Never Assessed Sex and Gender Information Value Date Recorded Sex Assigned at Not on file Gender Identity Not on file Sexual Orientation Not on file documented as of this encounter Plan of Treatment Not on file documented as of this encounter Visit Diagnoses Not on filedocumented in this encounter Care Teams Theatrical Agent Relationship Specialty Start Date End Date Found, No PcpMD [address] [place] [address] PCP - General 07/05/23 documented as of this encounter
--- OUTSIDE RECORDS SUMMARY | 2023-12-17 11:22 | XMS_ITS | Encounter Summary ---
Author Organization [facility] Address [address] [place] [address] Care Team Providers Care Analysis Engineer Name Role Phone Found, No Pcp Primary Care Provider Unavailab le Encounter Details Date Type Department Care Team (Latest Contact Info) Description 12/22/1997 Orders Only Nikhil Ceja MD [address] [place], [place] [address] Social History Tobacco Use Types Packs/Day Years Used Date Smoking Tobacco: Never Assessed Sex and Gender Information Value Date Recorded Sex Assigned at Not on file Gender Identity Not on file Sexual Orientation Not on file documented as of this encounter Plan of Treatment Not on file documented as of this encounter Visit Diagnoses Not on filedocumented in this encounter Care Teams Analysis Engineer Relationship Specialty Start Date End Date Found, No Pcp, [address] [place] [address] PCP - General 07/05/23 documented as of this encounter
--- OUTSIDE RECORDS SUMMARY | 2023-12-17 11:22 | XMS_ITS | Encounter Summary ---
Author Organization [facility] Address [address] [address] Care Team Providers Care Telephone Technician Name Role Phone Found, No Pcp [...] on filedocumented in this encounter Care Teams Telephone Technician Relationship Specialty Start Date End Date Found, No Pcp, [address] [place] [address] PCP - General 07/05/23 documented as of this encounter
--- OUTSIDE RECORDS SUMMARY | 2023-12-17 11:22 | XMS_ITS | Encounter Summary ---
Author Organization [facility] Address [address] [address] Care Team Providers Care Special Tax Auditor Name Role Phone Found, No Pcp Primary [...] filedocumented in this encounter Care Teams Special Tax Auditor Relationship Specialty Start Date End Date Found, No Pcp, [address] [place] [address] PCP - General 07/05/23 documented as of this encounter
--- OUTSIDE RECORDS SUMMARY | 2023-12-17 11:22 | XMS_ITS | Encounter Summary ---
Author Organization [facility] Address [address] [address] Care Team Providers Care Rotary Bar Operator Name Role Phone Found, No Pcp [...] on filedocumented in this encounter Care Teams Rotary Bar Operator Relationship Specialty Start Date End Date Found, No Pcp, [address] [place] [address] PCP - General 07/05/23 documented as of this encounter
--- OUTSIDE RECORDS SUMMARY | 2023-12-17 11:23 | XMS_ITS | Clinical Summary ---
Author Organization [facility] Address [address] [place] [address]. [place] [address] Care Team Providers Care Continuous Loft Operator Name Role Phone Mp Brown DO Primary Care Provider [phone] Allergies No known active allergies Medications Medication [...] age to complete this topic Care Teams Continuous Loft Operator Relationship Specialty Start Date End Date [place] [address] [address] PCP - General 01/01/23
--- OUTSIDE RECORDS SUMMARY | 2023-12-17 11:23 | XMS_ITS | Encounter Summary ---
Author Organization [facility] Address [address] [place] [address] Care Team Providers Care Patron Attendant Name Role Phone Found, No Pcp Primary Care Provider Unavailab le Encounter Details Date Type Department Care Team (Latest Contact Info) Description 07/02/1994 [place] [address] [place] [address] Social History Tobacco Use Types [...] on filedocumented in this encounter Care Teams Patron Attendant Relationship Specialty Start Date End Date Found, No Pcp, [address] [place] [address] PCP - General 07/05/23 documented as of this encounter
--- OUTSIDE RECORDS SUMMARY | 2023-12-17 11:23 | XMS_ITS | Encounter Summary ---
Author Organization [facility] Address [address] [address] Care Team Providers Care Respiratory Director Name Role Phone Found, No Pcp Primary Care Provider Unavailab le Encounter Details Date Type Department Care Team (Latest Contact Info) Description 06/02/1994 Orders Only Jarod Cooper MD [address] [place] [id number] Social History Tobacco Use Types Packs/Day Years Used Date Smoking Tobacco: Never Assessed Sex and Gender Information Value Date Recorded Sex Assigned at Not on file Gender Identity Not on file Sexual Orientation Not on file documented as of this encounter Plan of Treatment Not on file documented as of this encounter Visit Diagnoses Not on filedocumented in this encounter Care Teams Respiratory Director Relationship Specialty Start Date End Date Found, No PcpMD [address] [facility] [address] PCP - General 07/05/23 documented as of this encounter
--- OUTSIDE RECORDS SUMMARY | 2023-12-17 11:23 | XMS_ITS | Encounter Summary ---
Author Organization [facility] Address [address] [address] Care Team Providers Care Communication Clerk Name Role Phone Found, No Pcp [...] on filedocumented in this encounter Care Teams Communication Clerk Relationship Specialty Start Date End Date Found, No Pcp, [address] [place] [address] PCP - General 07/05/23 documented as of this encounter
--- OUTSIDE RECORDS SUMMARY | 2023-12-17 11:23 | XMS_ITS | Encounter Summary ---
Author Organization [facility] Address [address] [address] Care Team Providers Care Hearing Health Technician Name Role Phone Found, No Pcp [...] on filedocumented in this encounter Care Teams Hearing Health Technician Relationship Specialty Start Date End Date Found, No Pcp, [address] [place] [address] PCP - General 07/05/23 documented as of this encounter
--- OUTSIDE RECORDS SUMMARY | 2023-12-17 11:23 | XMS_ITS | Encounter Summary ---
Author Organization [facility] Address [address], [place] [address] Care Team Providers Care Pharmaceutical Specialty Representative Name Role Phone Found, No Pcp [...] on filedocumented in this encounter Care Teams Pharmaceutical Specialty Representative Relationship Specialty Start Date End Date Found, No Pcp, [address] [place] [address] PCP - General 07/05/23 documented as of this encounter
--- OUTSIDE RECORDS SUMMARY | 2023-12-17 11:23 | XMS_ITS | Encounter Summary ---
Author Organization [facility] Address [address], [place] [address] Care Team Providers Care Nuclear Control Room Operator Name Role Phone Found, No Pcp [...] on filedocumented in this encounter Care Teams Nuclear Control Room Operator Relationship Specialty Start Date End Date Found, No Pcp, [address] [place] [address] PCP - General 07/05/23 documented as of this encounter
--- OUTSIDE RECORDS SUMMARY | 2023-12-17 11:23 | XMS_ITS | Encounter Summary ---
Author Organization [facility] Address [address] [address] Care Team Providers Care Tie Loader Name Role Phone Found, No Pcp [...] on filedocumented in this encounter Care Teams Tie Loader Relationship Specialty Start Date End Date Found, No Pcp, [address] [place] [address] PCP - General 07/05/23 documented as of this encounter
--- OUTSIDE RECORDS SUMMARY | 2023-12-17 11:23 | XMS_ITS | Encounter Summary ---
Author Organization [facility] Address [address], [place] [address] Care Team Providers Care Interface Control Officer Name Role Phone Found, No Pcp [...] on filedocumented in this encounter Care Teams Interface Control Officer Relationship Specialty Start Date End Date Found, No Pcp, [address] [place] [address] PCP - General 07/05/23 documented as of this encounter
--- OUTSIDE RECORDS SUMMARY | 2023-12-17 11:23 | XMS_ITS | Encounter Summary ---
Author Organization [facility] Address [address], [place] [address] Care Team Providers Care Collet Driller Name Role Phone Found, No Pcp Primary [...] on filedocumented in this encounter Care Teams Collet Driller Relationship Specialty Start Date End Date Found, No Pcp, [address] [place] [address] PCP - General 07/05/23 documented as of this encounter
--- OUTSIDE RECORDS SUMMARY | 2023-12-17 11:23 | XMS_ITS | Encounter Summary ---
Author Organization [facility] Address [address] [place] [address] Care Team Providers Care Weaver Apprentice Name Role Phone Found, No Pcp Primary Care Provider Unavailab le Encounter Details Date Type Department Care Team (Late st Contact Info) Description 06/05/[address] [facility] Scott Pedroza MD [address] [address] Social History Tobacco Use Types Packs/Day Years Used Date Smoking Tobacco: Never Assessed Sex and Gender Information Value Date Recorded Sex Assigned at Not on file Gender Identity Not on file Sexual Orientation Not on file documented as of this encounter Plan of Treatment Not on file documented as of this encounter Visit Diagnoses Not on filedocumented in this encounter Care Teams Weaver Apprentice Relationship Specialty Start Date End Date Found, No Pcp, [address] [place] [address] PCP - General 07/05/23 documented as of this encounter
--- OUTSIDE RECORDS SUMMARY | 2023-12-17 11:23 | XMS_ITS | Referral Summary ---
Author Organization [facility] Address [address] [place] [address]. [place] [address] Care Team Providers Care Coordinator Mining Products Name Role Phone Mp Brown DO Primary Care Provider [phone] Allergies No known active allergies Medications Medication [...] of Treatment Not on file Care Teams Coordinator Mining Products Relationship Specialty Start Date End Date Mp Brown DO [address] [place] [address] PCP - General 01/01/23
--- OUTSIDE RECORDS SUMMARY | 2023-12-17 11:23 | XMS_ITS | Encounter Summary ---
Author Organization [facility] Address [address], [place] [address] Care Team Providers Care Egg Smeller Name Role Phone Found, No Pcp Primary Care Provider Unavailab le Encounter Details Date Type Department Care Team (Latest Contact Info) Description 07/06/1994 [place] [address], [place] [address] Social History Tobacco Use Types Packs/Day Years Used Date Smoking Tobacco: Never Assessed Sex and Gender Information Value Date Recorded Sex Assigned at Not on file Gender Identity Not on file Sexual Orientation Not on file documented as of this encounter Plan of Treatment Not on file documented as of this encounter Visit Diagnoses Not on filedocumented in this encounter Care Teams Egg Smeller Relationship Specialty Start Date End Date Found, No PcpMD [address] [facility] [place] [place] [address] PCP - General 07/05/23 documented as of this encounter
--- OUTSIDE RECORDS SUMMARY | 2023-12-17 11:23 | XMS_ITS | Encounter Summary ---
Author Organization [facility] Address [address], [place] [address] Care Team Providers Care Orthodontic Assistant Name Role Phone Found, No Pcp Primary Care Provider Unavailab le Encounter Details Date Type Department Care Team (Latest Contact Info) Description 07/02/1995 Orders Only [facility] [address] [facility], [address] Social History Tobacco Use [...] on filedocumented in this encounter Care Teams Orthodontic Assistant Relationship Specialty Start Date End Date Found, No Pcp, [address] [place] [address] PCP - General 07/05/23 documented as of this encounter
--- OUTSIDE RECORDS SUMMARY | 2023-12-17 11:23 | XMS_ITS | Encounter Summary ---
Author Organization [facility] Address [address] [address] Care Team Providers Care Meat Processor Name Role Phone Found, No Pcp Primary [...] on filedocumented in this encounter Care Teams Meat Processor Relationship Specialty Start Date End Date Found, No Pcp, [address] [place] [address] PCP - General 07/05/23 documented as of this encounter
--- OUTSIDE RECORDS SUMMARY | 2023-12-17 11:23 | XMS_ITS | Encounter Summary ---
Author Organization [facility] Address [address] [address] Care Team Providers Care Medical Lab Assistant Name Role Phone Found, No Pcp [...] on filedocumented in this encounter Care Teams Medical Lab Assistant Relationship Specialty Start Date End Date Found, No Pcp, [address] [place] [address] PCP - General 07/05/23 documented as of this encounter
--- OUTSIDE RECORDS SUMMARY | 2023-12-17 11:23 | XMS_ITS | Clinical Summary ---
Author Organization [facility] Address [place], [place] [address] Care Team Providers Care Boilermaker Fitter Name Role Phone Joann Brown DO Primary Care Provider [phone] Allergies No known active allergies Medications Medication Sig Dispensed Refills Start Date End Date Status miscellaneous medical supply miscIndications:Foot pain, bilateral,Heel pain, bilateral,Diabetes mellitus type 2, uncontrolled, without complications As directed. Orthotic foot inserts - 1 pair 1 Each 9 Active CPAPIndications:Obstructi ve sleep apnea CPAP machine for home use [...] DAILY 100 Each 3 1 Active blood-glucose meterIndications:Uncontro lled type 2 diabetes mellitus with hyperglycemia (HC) Dispense meter, test strips, lancets covered by pt ins. E11.9 NIDDM type II - Test 1 time/day 1 Each 1 Active blood sugar diagnostic (FreeStyle Test) stripIndications:Uncontro lled type 2 diabetes mellitus with hyperglycemia (HC) Dispense item covered by pt ins. E11.9 NIDDM type II - Test 1 time/day 100 Each 3 1 Active clobetasol cream 0.05% (TEMOVATE) 0.05 % creamIndications:Dermatit is Use daily as needed 30 g 1 3 Active semaglutide (Rybelsus) 14 mg tabletIndications:Type [...] 4 Active pantoprazole (PROTONIX) 40 mg delayed-release tabletIndications:Gastroe sophageal reflux disease, unspecified whether esophagitis present Take 1 Tablet (40 mg) by mouth once daily. 90 Tablet 3 4 Active lisinopriL (PRINIVIL; ZESTRIL) 40 mg tabletIndications:Essenti al hypertension Take 1 Tablet (40 mg) by mouth once daily. 90 Tablet 3 4 Active levothyroxine (SYNTHROID) 125 mcg tabletIndications:Hypothy roidism, unspecified type Take 1 Tablet (125 mcg) by mouth before breakfast. 90 Tablet 3 4 Active metoprolol tartrate (LOPRESSOR) 100 mg tabletIndications:Essenti al hypertension Take 1 Tablet (100 mg) by mouth two times daily. 180 Tablet 3 4 Active celecoxib (CELEBREX) 200 mg capsuleIndications:Osteoa rthritis, unspecified osteoarthritis type, unspecified site Use once daily as needed for pain 90 Capsule 3 4 Active nitrofurantoin macrocrystals/monohydrate (Macrobid) 100 mg capsuleIndications:Recurr ent UTI Take 1 Capsule (100 mg) by mouth every 12 hours. Use dose before intercourse and dose after intercourse 12 hours after first dose 60 Capsule 4 Active nystatin powder (Nystop) powderIndications:Yeast infection [...] once daily. 90 Capsule 3 4 Active Eliquis 5 mg tabletIndications:New onset atrial fibrillation (HC) Take 1 Tablet (5 mg) by mouth two times daily. 180 Tablet 3 4 Active LORazepam (ATIVAN) 1 mg tabletIndications:Insomni a, idiopathic TAKE 1 TABLET(1 MG) BY MOUTH AT BEDTIME NEEDED FOR ANXIETY OR SLEEP 15 Tablet 4 Active benzonatate (TESSALON) 200 mg capsuleIndications:Acute cough Take 1 Capsule (200 mg) by mouth 3 times daily if needed for Cough. 21 Capsule 4 Active Active Problems Problem Noted Date Diagnosed Date [...] Encounters Date Type Department Care Team Description 12/08/2023 Orders Only [facility] Scanner 1 scan: (1-Ord) [facility], RT KNEE WO, 12/08/2023 11/18/2023 4:25 PM CDT Telemedicine [facility] [address] [place] [address] Rita Arnold, DRAMA DIRECTOR URI; Telehealth 11/18/2023 Travel 11/16/2023 Refill [facility] [address] [place] [address] Shaqra, Joann Arianna, DO Refill Request (Lorazepam) 10/20/2023 Refill [facility] [address] [place] [address] Shaqra, Joann Arianna, DO Refill Request from Last 3 Months Immunizations Name Administration [...] Description 01/05/2024 3:00 PM CDT Office Visit [facility] [address] [place] [address] Sebastien Rodriguez MD [address] [place] [address] Health Maintenance Due Date Last Done Comments Mammogram for age 45-75 10/03/2021 10/04/19, 10/03/2019, 06/03/2018, Additional history exists Depression screening for age 12+ 05/19/2022 05/19/2021, 04/15/2020, 07/24/2019, Additional history exists Hepatitis B series for Diabe sherif (2 of 3 - 19+ 3-dose series) 08/10/2022 07/13/2022 COVID-19 vaccine series ( season) 2023 01/22/2023, 05/07/2022, 07/10/2021, Additional history exists Influenza for age 50-64 11/21/2023 01/23/20 23, 12/17/2021, 12/18/2020, Additional history exists BMI (ht and wt on same day) for age 18+ 09/09/2024 09/10/2023, 09/01/2023, 02/10/2023, Additional history exists Pap test for age 21-65 04/15/2025 , 04/15/2020, 03/18/2017, Additional history exists Colonoscopy through age 75 12/29/2025 12/30/2015, Lipids for age 45-75 08/31/2028 09/01/2023, 07/13/2022, 02/17/2021, Additional history exists Tetanus booster 07/13/2032 07/13/2022, 1005/2011, 02/14/2007, Additional history exists Hepatitis C screening for ag e 18-79 Completed 03/30/2019 Zoster (shingles) series for age 50+ Completed 05/19/2021, 03/30/2019 Pneumococcal series for age 6-64 Completed 07/13/2022, 03/30/2019, 06/11/2000 Tdap Completed 07/13/2022, 100 05/2011, 02/14/2007 HIV for age 15-65 Completed 09/01/2023 Procedures Procedure Name Priority Date/Time Associated Diagnosis Comments SCAN-MRI INTERPRETATION 12/08/2023 12:00 AM CDT EXTENDED HOLTER STAT 09/28/2023 New onset atrial fibrillation (HC) ANTI HIV 1/2 Routine 09/01/2023 3:17 PM CDT Screening for HIV (human immunodeficiency virus) LIPID PANEL W REFLEX MEASURED LDL Routine 09/01/2023 3:17 PM CDT Pure hypercholesterolemia SCAN-MAMMOGRAPHY REPORT 10/03/2020 12:00 AM CDT TRAUMA DOCTOR THIN PREP PAP SCREEN IMAGED Routine 04/15/2020 8:45 AM SPINNER CONCRETE PIPE Pap smear for cervical cancer screening ANTI HCV Routine 03/30/2019 12:27 PM SPINNER CONCRETE PIPE Need for hepatitis C screening test SCAN-COLONOSCOPY 12/30/2015 12:00 AM CDT from Last 3 Months or Most Recently Relevant to Health Maintenance Results * SCAN-MRI INTERPRETATION (12/08/2023 12:00 AM CDT) Anatomical Region Laterality Modality Other Scanner OTHER * EXTENDED HOLTER (09/28/2023) Joann Brown DO CARDIAC SERVICES ORD * (ABNORMAL) LIPID PANEL W REFLEX MEASURED LDL (09/01/2023 3:17 PM CDT) CHOLESTEROL,TOTAL 264(H) 100 - 199 mg/dL 09/01/2023 11:47 PM CDT [facility] Comment: Cholesterol, Total Reference Ranges Desirable <200 mg/dL Borderline 200-239 mg/dL High >=240 mg/dL TRIGLYCERIDES 156(H) <150 mg/dL 09/01/2023 11:47 PM CDT [facility] HDL CHOLESTEROL 73 >40 mg/dL 11:47 PM CDT [facility] NON-HDL CHOLESTEROL 191(H) <145 mg/dl 09/01/2023 11:47 PM CDT [facility] CHOL/HDL RATIO 3.62 <4.50 09/01/2023 11:47 PM CDT [facility] LDL CHOLESTEROL 160(H) <=130 mg/dL 09/01/2023 11:47 PM CDT [facility] VLDL CHOLESTEROL 31(H) <=30 mg/dL 09/01/2023 11:47 PM CDT [facility] PROVIDER ORDERED STATUS RANDOM 09/01/2023 11:47 PM CDT [facility] Blood BLOOD SPECIMEN / Unknown Venipuncture / Unknown 09/01/2023 3:17 PM CDT 09/01/2023 3:19 PM CDT Joann Brown DO CHEMISTRY [facility] [address] [place] [address], * ANTI HIV 1/2 [14935.0] (09/01/2023 3:17 PM CDT) HIV-1/HIV-2 SCREEN Non-Reacti ve Non-Reacti ve 09/01/2023 11:34 PM CDT [facility] Comment:HIV-1 p24 and HIV-1/ HIV-2 Ab Not Detected. Blood BLOOD SPECIMEN / Unknown Venipuncture / Unknown 09/01/2023 3:17 PM CDT 09/01/2023 3:19 PM CDT Joann Brown DO SEND OUTS [facility] [address] [place] [address], * SCAN-MAMMOGRAPHY REPORT (10/03/2020 12:00 AM CDT) Anatomical Region Laterality Modality Other Scanner OTHER * TRAUMA DOCTOR THIN PREP PAP SCREEN IMAGED [[id number]] (04/15/2020 8:45 AM SPINNER CONCRETE PIPE) Case Report Gynecologic Cytology Report ? Case: [id number] ? Authorizing Provider: ??Sherrie Doyle MD ? Collected: ? 04/15/2020 0845 ? Ordering Location: ? [facility] ?? Received: ?04/15/2020 1020 ? Clinic ? First Screen: ?Alexandra, Giselle ? Specimen: ?TRAUMA DOCTOR ThinPrep Vial Screening, Cervical ? 04/23/2020 2:58 PM SPINNER CONCRETE PIPE [facility] [employer] [facility] INTERPRETATION/ RESULT NEGATIVE FOR INTRAEPITHELIAL LESION OR MALIGNANCY (NIL) (none) 04/23/2020 2:58 PM SPINNER CONCRETE PIPE [facility] IMEN ADEQUACY Satisfactory for evaluation Endocervical component present 04/23/2020 2:58 PM SPINNER CONCRETE PIPE [facility] [employer] [facility] HPV REQUEST HPV and PAP 04/23/2020 2:58 PM SPINNER CONCRETE PIPE [facility] [employer] [facility] Date of LMP uncertain 04/23/2020 2:58 PM SPINNER CONCRETE PIPE [facility] Last Pap Date 03/18/17 04/23/2020 2:58 PM SPINNER CONCRETE PIPE [facility] Last Pap Result NIL 2:58 PM SPINNER CONCRETE PIPE [facility] Abnormal Pap or [place] Bx in last 5 years No 04/23/2020 2:58 PM SPINNER CONCRETE PIPE [facility] Menstrual Status Postmenopausal 04/23/2020 2:58 PM SPINNER CONCRETE PIPE [facility] [place] Bx Done Today No 04/23/2020 2:58 PM SPINNER CONCRETE PIPE [facility] Additional Information None given 04/23/2020 2:58 PM SPINNER CONCRETE PIPE [facility] Comment: Cytology is screened at [facility] - [address], [place] [address] and [facility] - [address] [place] [address] and [facility] - [address] [place] [address] Interpreted at [facility] - [address], [place] [address] Automated Review Successful 04/23/2020 2:58 PM SPINNER CONCRETE PIPE [facility] Comment:Specimen processed s uccessfully by automated team cdl driver device, ThinPrep Imaging System, [employer] ANCILLARY TESTING TRAUMA DOCTOR HPV Ordered, Please see separate report 04/23/2020 2:58 PM SPINNER CONCRETE PIPE [facility] Note The pap test is [...] pre-malignant and malignant lesions. 04/23/2020 2:58 PM SPINNER CONCRETE PIPE [facility] Other (Cervical) Non-Blood / Unknown 04/15/2020 8:45 AM SPINNER CONCRETE PIPE 04/15/2020 10:20 AM SPINNER CONCRETE PIPE Sherrie Doyle MD PATHOLOGY/CYTOLOGY [facility] [address] [place] [address], [place] * ANTI HCV (03/30/2019 12:27 PM SPINNER CONCRETE PIPE) HEPATITIS C ANTIBODY Non-React chiquita Non-React chiquita 03/30/2019 7:09 PM SPINNER CONCRETE PIPE [facility] Comment:Antibodies to HCV no t detected; does not exclude the possibility of exposure to HCV. Blood BLOOD SPECIMEN / Unknown Butterfly / Unknown 03/30/2019 12:27 PM SPINNER CONCRETE PIPE 03/30/2019 12:27 PM SPINNER CONCRETE PIPE Sherrie Doyle MD SEND OUTS Performing Organization Address City/[facility]/ZIP Co de Phone Number [facility] [address] [place] [address], [place] * SCAN-COLONOSCOPY (12/30/2015 12:00 AM CDT) Scanner OTHER from Last 3 Months or Most Recently Relevant to Health Maintenance Care Teams Boilermaker Fitter Relationship Specialty Start Date End [place] [address] PCP - General Family Practice 07/13/22
--- NOTE | 2023-12-17 11:30 | CRLHL7_ITS ---
For Patients: As a result of the Century Cures Act, medical imaging exams and procedure reports are released immediately into your electronic medical record. You may view this report before your referring provider. If you have questions, please contact your health care provider. BILATERAL SCREENING MAMMOGRAM WITH COMPUTER-AIDED DETECTION AND TOMOSYNTHESIS TECHNIQUE: CC and MLO views were obtained. These mammographic images have been obtained using full-field digital technique. These mammographic images were interpreted with the benefit of computer-aided detection. Breast Tomosynthesis was used in this interpretation. COMPARISON FILM: 10/09/22, 10/06/21, 10/03/20. FINDINGS: There are scattered areas of fibroglandular density. IMPRESSION: There is no radiographic evidence for malignancy. ASSESSMENT: BI-RADS Category 2: Benign RECOMMENDATION: Routine screening mammogram in 1 year. A lay language report of this examination will be provided to the patient. Jose Martinez M.D. Diagnostic Radiologist [email or web address] SP/Dictated by: Jose Martinez MD @ 12/20/2023 10:52:00 AM (Electronically Signed)
== END 2023-12-17 11:21 | disposition home or self-care (01) ==
LOC: MAMMO 11:20
PROVIDERS: PCP Family Medicine; Visit Provider Family Medicine
DX: Z12.31 Encounter for screening mammogram for malignant neoplasm of breast (principal)
CPT/HCPCS: 77063; 77067

== ENCOUNTER 2024-04-25 15:33 | Emergency (ER) | payer OTHER, SELFPAY ==
--- OUTSIDE RECORDS SUMMARY | 2024-04-25 15:36 | XMS_ITS | Encounter Summary ---
Author Organization [facility] Address [address], [place] [address] Care Team Providers Care Rigging Worker Name Role Phone Found, No Pcp [...] on filedocumented in this encounter Care Teams Rigging Worker Relationship Specialty Start Date End Date Found, No Pcp, [address] [place] [address] PCP - General 07/05/23 documented as of this encounter
--- OUTSIDE RECORDS SUMMARY | 2024-04-25 15:36 | XMS_ITS | Encounter Summary ---
Author Organization [facility] Address [address] [place] [address] Care Team Providers Care Lawyer Criminal Name Role Phone Found, No Pcp Primary Care Provider Unavailab le Encounter Details Date Type Department Care Team (Latest Contact Info) Description 06/12/1999 Orders Only Inés Lozada MD [address] [place] [address] Social History Tobacco Use Types Packs/Day Years Used Date Smoking Tobacco: Never Assessed Sex and Gender Information Value Date Recorded Sex Assigned at Not on file Gender Identity Not on file Sexual Orientation Not on file documented as of this encounter Plan of Treatment Not on file documented as of this encounter Visit Diagnoses Not on filedocumented in this encounter Care Teams Lawyer Criminal Relationship Specialty Start Date End Date Found, No PcpMD [address] [place] [address] PCP - General 07/05/23 documented as of this encounter
--- OUTSIDE RECORDS SUMMARY | 2024-04-25 15:36 | XMS_ITS | Encounter Summary ---
Author Organization [facility] Address [address] [place] [address] Care Team Providers Care Office Runner Name Role Phone Found, No Pcp Primary Care Provider Unavailab le Encounter Details Date Type Department Care Team (Latest Contact Info) Description 07/02/1994 [place] [address] [place] [address] Social History Tobacco Use Types [...] on filedocumented in this encounter Care Teams Office Runner Relationship Specialty Start Date End Date Found, No Pcp, [address] [place] [address] PCP - General 07/05/23 documented as of this encounter
--- OUTSIDE RECORDS SUMMARY | 2024-04-25 15:36 | XMS_ITS | Encounter Summary ---
Author Organization [facility] Address [address] [place] [address] Care Team Providers Care Director Career Name Role Phone Found, No Pcp Primary Care Provider Unavailab le Encounter Details Date Type Department Care Team (Latest Contact Info) Description 07/06/1994 [place] [address] [place], [place] [address] Social History Tobacco Use Types Packs/Day Years Used Date Smoking Tobacco: Never Assessed Sex and Gender Information Value Date Recorded Sex Assigned at Not on file Gender Identity Not on file Sexual Orientation Not on file documented as of this encounter Plan of Treatment Not on file documented as of this encounter Visit Diagnoses Not on filedocumented in this encounter Care Teams Director Career Relationship Specialty Start Date End Date Found, No PcpMD [address] [place] [address] PCP - General 07/05/23 documented as of this encounter
--- OUTSIDE RECORDS SUMMARY | 2024-04-25 15:36 | XMS_ITS | Encounter Summary ---
Author Organization [facility] Address [address] [address] Care Team Providers Care Fire Management Officer Name Role Phone Found, No Pcp [...] on filedocumented in this encounter Care Teams Fire Management Officer Relationship Specialty Start Date End Date Found, No Pcp, [address] [place] [address] PCP - General 07/05/23 documented as of this encounter
--- OUTSIDE RECORDS SUMMARY | 2024-04-25 15:36 | XMS_ITS | Encounter Summary ---
Author Organization [facility] Address [address] [address] Care Team Providers Care Director Of Rotc Name Role Phone Found, No Pcp Primary [...] in this encounter Care Teams Director Of Rotc Relationship Specialty Start Date End Date Found, No Pcp, [address] [place] [address] PCP - General 07/05/23 documented as of this encounter
--- OUTSIDE RECORDS SUMMARY | 2024-04-25 15:36 | XMS_ITS | Encounter Summary ---
Author Organization [facility] Address [address] [address] Care Team Providers Care Floor Installation Mechanic Name Role Phone Found, No Pcp [...] on filedocumented in this encounter Care Teams Floor Installation Mechanic Relationship Specialty Start Date End Date Found, No Pcp, [address] [place] [address] PCP - General 07/05/23 documented as of this encounter
--- OUTSIDE RECORDS SUMMARY | 2024-04-25 15:36 | XMS_ITS | Encounter Summary ---
Author Organization [facility] Address [address] [address] Care Team Providers Care Controls Operator Molded Goods Name Role Phone Found, No Pcp Primary [...] on filedocumented in this encounter Care Teams Controls Operator Molded Goods Relationship Specialty Start Date End Date Found, No Pcp, [address] [place] [address] PCP - General 07/05/23 documented as of this encounter
--- OUTSIDE RECORDS SUMMARY | 2024-04-25 15:37 | XMS_ITS | Encounter Summary ---
Author Organization Formerly [facility] Address [address] [place] [address] Care Team Providers Care Electrolysis Needle Operator Name Role Phone Found, No Pcp Primary Care Provider Unavailab le Encounter Details Date Type Department Care Team (Latest Contact Info) Description 06/02/1994 Orders Only Jarod Cooper MD [address] [place] [id number] Social History Tobacco Use Types Packs/Day Years Used Date Smoking Tobacco: Never Assessed Sex and Gender Information Value Date Recorded Sex Assigned at Not on file Gender Identity Not on file Sexual Orientation Not on file documented as of this encounter Plan of Treatment Not on file documented as of this encounter Visit Diagnoses Not on filedocumented in this encounter Care Teams Electrolysis Needle Operator Relationship Specialty Start Date End Date Found, No PcpMD [address] [facility] [place] [address] PCP - General 07/05/23 documented as of this encounter
--- OUTSIDE RECORDS SUMMARY | 2024-04-25 15:37 | XMS_ITS | Encounter Summary ---
Author Organization [facility] Address [address] [place] [address] Care Team Providers Care Tie Layer Name Role Phone Mp Brown DO Primary Care Provider [phone] Encounter Details Date Type Department Care Team (Latest Contact Info) Description 03/13/2024 Travel Social History Tobacco Use Types Packs/Day Years Used Date Smoking Tobacco: Never Assessed Adolescent Education Answer Date Record ed Getting School Help Needed Not on file 01/01 Comments No Sex and Gender Information Value Date Recorded Sex Assigned at Not on file Legal Sex Female 3:23 AM LAGGING MACHINE OPERATOR Gender Identity Not on file Sexual Orientation Not on file documented as of this encounter Plan of Treatment Not on file documented as of this encounter Visit Diagnoses Not on filedocumented in this encounter Care Teams Tie Layer Relationship Specialty Start Date End Date Mp Brown DO [address] [place] [address] PCP - General 01/01/23 documented as of this encounter
--- OUTSIDE RECORDS SUMMARY | 2024-04-25 15:37 | XMS_ITS | Encounter Summary ---
Author Organization [facility] Address [address], [place] [address] Care Team Providers Care Office Sweeper Name Role Phone Found, No Pcp Primary [...] filedocumented in this encounter Care Teams Office Sweeper Relationship Specialty Start Date End Date Found, No Pcp, [address] [place] [address] PCP - General 07/05/23 documented as of this encounter
--- OUTSIDE RECORDS SUMMARY | 2024-04-25 15:37 | XMS_ITS | Referral Summary ---
Author Organization [facility] Address [address] [place] [address] Care Team Providers Care Mid Level Clinician Name Role Phone Mp Brown Primary Care Provider [phone] Encounters Date Type Department Care Team Description 03/13/2024 Travel 03/13/2024 8:58 PM TRACTOR EXPERT - 03/13/2024 11:28 PM [facility] Emergency [facility] Emergency Dept [address] [place] [address] Itz Lino MD Nonspecific chest pain; Anxiety state Discharge Disposition: Home or Self Care from Last 3 Months Allergies No known active allergies Medications cyclobenzaprine (FLEXERIL) 10 MG tablet Take 1 tablet (10 mg) by mouth 3 times daily as needed for muscle spasms 15 tablet 01/01/2023 Active ibuprofen (ADVIL/MOTRIN) 600 MG tablet Take 1 tablet (600 mg) by mouth every 8 hours as needed for moderate pain 30 tablet 01/01/2023 Active LORazepam (ATIVAN) 1 MG tablet Take 1 tablet (1 mg) by mouth every 6 hours as needed for anxiety. 3 tablet 03/13/2024 Active Social History Tobacco Use Types Packs/Day Years Used Date Smoking Tobacco: Never Assessed Adolescent Education Answer Date Record ed Getting School Help Needed Not on file 01/01 Comments No Sex and Gender Information Value Date Recorded Sex Assigned at Not on file Legal Sex Female 3:23 AM TRACTOR EXPERT Gender Identity Not on file Sexual Orientation Not on file Last Filed Vital Signs Vital Sign Reading Time Taken Comments Blood Pressure 157/88 03/13/2024 7:26 PM TRACTOR EXPERT Pulse 101 03/13/2024 7:26 PM TRACTOR EXPERT Temperature 36.7 C (98 F) 03/13/2024 7:26 PM TRACTOR EXPERT Respiratory Rate 18 03/13/2024 7:26 PM TRACTOR EXPERT Oxygen Saturation 97% 03/13/2024 7:26 PM TRACTOR EXPERT Inhaled Oxygen Concentration - - Weight 158.3 kg (348 lb 15.8 oz) 2022 12:27 PM CDT Height 175.3 cm (5' 9) 01/01/2023 12:2 7 PM CDT Body Mass Index 51.54 01/01/2023 12:27 PM CDT Plan of Treatment Not on file Procedures Procedure Name Priority Date/Time Associated Diagnosis Comments XR CHEST 2 VIEWS STAT 03/13/2024 10:0 0 PM TRACTOR EXPERT CBC WITH PLATELETS & DIFFERENTIAL STAT 03/13/2024 7:51 PM TRACTOR EXPERT EXTRA RED TOP TUBE STAT 03/13/2024 7: 51 PM TRACTOR EXPERT EXTRA BLUE TOP TUBE STAT 03/13/2024 7 :51 PM TRACTOR EXPERT CBC WITH PLATELETS AND DIFFERENTIAL STAT 03/13/2024 7:51 PM TRACTOR EXPERT EXTRA TUBE STAT 03/13/2024 7:51 PM TRACTOR EXPERT TROPONIN T, HIGH SENSITIVITY STAT 03/13/2024 7:51 PM TRACTOR EXPERT BASIC METABOLIC PANEL STAT 03/13/2024 7:51 PM TRACTOR EXPERT EKG 12-LEAD, TRACING ONLY STAT 03/13/2024 7:21 PM TRACTOR EXPERT EKG CARDIAC - HIM SCAN 03/13/2024 12:00 AM TRACTOR EXPERT from Last 3 Months Results * XR Chest 2 Views (03/13/2024 10:00 PM TRACTOR EXPERT) Anatomical Region Laterality Modality Chest Computed Radiogr aphy 03/13/2024 10:0 0 PM TRACTOR EXPERT Impressions 03/13/2024 10:12 PM TRACTOR EXPERT IMPRESSION: No acute cardiopulmonary or musculoskeletal abnormalities identified to explain patient's chest pain clinically. Moderate hypertrophic changes in the spine. Narrative 03/13/2024 10:12 PM TRACTOR EXPERT EXAM: XR CHEST 2 VIEWS LOCATION: [facility] DATE: 03/13/2024 INDICATION: cp COMPARISON: 01/01/2023 Procedure Note Lino Montes MD - 03/13/2024 EXAM: XR CHEST 2 VIEWS LOCATION: [facility] DATE: 03/13/2024 INDICATION: cp COMPARISON: 01/01/2023 IMPRESSION: No acute cardiopulmonary or musculoskeletal abnormalitiesidentified to explain patient's chest pain clinically. Moderatehypertrophic changes in the spine. us Itz Lino MD IMG DIAGNOSTIC IMAGING ORDERA BLES Final Result * Extra Red Top Tube (03/13/2024 7:51 PM TRACTOR EXPERT) Hold Specimen [facility] 03/13/2024 9:03 PM TRACTOR EXPERT [facility] Blood STRUCTURE OF LEFT HAND / Unknown Venipuncture / Unknown 03/13/2024 7:51 PM TRACTOR EXPERT 03/13/2024 7:57 PM TRACTOR EXPERT us Itz Lino MD LAB - BLOOD ORDERABLES Final Result [facility] Acute Care Lab [address] Lab (1st floor, no room number) [place] [address] * Extra Blue Top Tube (03/13/2024 7:51 PM TRACTOR EXPERT) Hold Specimen [facility] 03/13/2024 9:03 PM TRACTOR EXPERT [facility] Blood STRUCTURE OF LEFT HAND / Unknown Venipuncture / Unknown 03/13/2024 7:51 PM TRACTOR EXPERT 03/13/2024 7:56 PM TRACTOR EXPERT us Itz Lino MD LAB - BLOOD ORDERABLES Final Result [facility] Acute Care Lab [address] Lab (1st floor, no room number) [place] [address], [facility] * (ABNORMAL) CBC with platelets and differential (03/13/2024 7:51 PM TRACTOR EXPERT) [facility] WBC Count 7.7 4.0 - 11.0 10e3/uL 03/13/2024 8:07 PM TRACTOR EXPERT [facility] RBC Count 5.19 3.80 - 5.20 10e6/uL 03/13/2024 8:07 PM TRACTOR EXPERT [facility] Hemoglobin 12.3 11.7 - 15.7 g/dL 03/13/2024 8:07 PM TRACTOR EXPERT [facility] Hematocrit 40.0 35.0 - 47.0 % 03/13/2024 8:07 PM TRACTOR EXPERT [facility] MCV 77(L) 78 - 100 fL 03/13/2024 8:07 PM TRACTOR EXPERT [facility] MCH 23.7(L) 26.5 - 33.0 pg 03/13/2024 8:07 PM TRACTOR EXPERT [facility] MCHC 30.8(L) 31.5 - 36.5 g/dL 03/13/2024 8:07 PM TRACTOR EXPERT [facility] RDW 15.6(H) 10.0 - 15.0 % 03/13/2024 8:07 PM TRACTOR EXPERT [facility] Platelet Count 288 150 - 450 10e3/uL 03/13/2024 8:07 PM TRACTOR EXPERT [facility] % Neutrophils 56 % 03/13/2024 8:07 PM TRACTOR EXPERT [facility] % Lymphocytes 33 % 03/13/2024 8:07 PM TRACTOR EXPERT [facility] % Monocytes 7 % 03/13/2024 8:07 PM TRACTOR EXPERT [facility] % Eosinophils 3 % 03/13/2024 8:07 PM TRACTOR EXPERT [facility] % Basophils 0 % 03/13/2024 8:07 PM TRACTOR EXPERT [facility] % Immature Granulocytes 0 % 03/13/2024 8:07 PM TRACTOR EXPERT [facility] NRBCs per 100 WBC 0 <1 /100 024 8:07 PM TRACTOR EXPERT [facility] Absolute Neutrophils 4.3 1.6 - 8.3 10e3/uL 03/13/2024 8:07 PM TRACTOR EXPERT [facility] Absolute Lymphocytes 2.5 0.8 - 5.3 10e3/uL 03/13/2024 8:07 PM TRACTOR EXPERT [facility] Absolute Monocytes 0.6 0.0 - 1.3 10e3/uL 03/13/2024 8:07 PM TRACTOR EXPERT [facility] Absolute Eosinophils 0.2 0.0 - 0.7 10e3/uL 03/13/2024 8:07 PM TRACTOR EXPERT [facility] Absolute Basophils 0.0 0.0 - 0.2 10e3/uL 03/13/2024 8:07 PM TRACTOR EXPERT [facility] Absolute Immature Granulocytes 0.0 <=0.4 10e3/uL 03/13/2024 8:07 PM TRACTOR EXPERT [facility] Absolute NRBCs 0.0 10e3/uL 03/13/2024 8:07 PM TRACTOR EXPERT [facility] Blood STRUCTURE OF LEFT HAND / Unknown Venipuncture / Unknown 03/13/2024 7:51 PM TRACTOR EXPERT 03/13/2024 7:56 PM TRACTOR EXPERT us Itz Lino MD LAB - BLOOD ORDERABLES Final Result LABORATORY [facility] Acute Care Lab [address] [facility] Lab (1st floor, no room number) [place] [address] * Troponin T, High Sensitivity (03/13/2024 7:51 PM TRACTOR EXPERT) [facility] Troponin T, High Sensitivity <6 <=14 ng/L 03/13/2024 8:36 PM TRACTOR EXPERT [facility] Comment: Either a High Sensitivity Troponin T baseline (0 hours) value = 100 ng/L, or an increase in High Sensitivity Troponin T = 7 ng/L at 2 hours compared to 0 hours (2-0 hours), suggests myocardial injury, and urgent clinical attention is required. If the 2-0 hours increase is <7 ng/L, a High Sensitivity Troponin T result above gender-specific reference ranges warrants further evaluation. Recommendations for further evaluation include correlation with clinical decision-making tool (e.g., HEART), a 3rd High Sensitivity Troponin T test 2 hours after the 2nd (a 20% change from baseline would represent concern), admission for observation, close PCC/cardiology follow-up, or urgent outpatient provocative testing. Blood STRUCTURE OF LEFT HAND / Unknown Venipuncture / Unknown 03/13/2024 7:51 PM TRACTOR EXPERT 03/13/2024 7:56 PM TRACTOR EXPERT Itz Lino MD LAB - BLOOD ORDERABLES Final Result LABORATORY [facility] Acute Care Lab [address] Lab (1st floor, no room number) [place] [address], [facility] * (ABNORMAL) Basic metabolic panel (BMP) (03/13/2024 7:51 PM TRACTOR EXPERT) [facility] Sodium 137 135 - 145 mmol/L 03/13/2024 8:36 PM TRACTOR EXPERT LABORATORY Potassium 3.8 3.4 - 5.3 mmol/L 03/13/2024 8:36 PM TRACTOR EXPERT LABORATORY Chloride 102 98 - 107 mmol/L 03/13/2024 8:36 PM [facility] Carbon Dioxide (CO2) 20(L) 22 - 29 mmol/L 03/13/2024 8:36 PM [facility] Anion Gap 15 7 - 15 mmol/L 03/13/2024 8:36 PM [facility] Urea Nitrogen 14.6 8.0 - 23.0 mg/dL 03/13/2024 8:36 PM TRACTOR EXPERT LABORATORY Creatinine 0.70 0.51 - 0.95 mg/dL 03/13/2024 8:36 PM TRACTOR EXPERT LABORATORY GFR Estimate >90 >60 mL/min/1.7 3m2 03/13/2024 8:36 PM TRACTOR EXPERT LABORATORY Comment:eGFR calculated usin 2020 CKD-EPI equation. Calcium 9.5 8.8 - 10.4 mg/dL 03/13/2024 8:36 PM [facility] Comment:Reference intervals for this test were updated on 10/05/2023 to reflect our healthy population more accurately. There may be differences in the flagging of prior results with similar values performed with this method. Those prior results can be interpreted in the context of the updated reference intervals. Glucose 180(H) 70 - 99 mg/dL 03/13/2024 8:36 PM TRACTOR EXPERT LABORATORY Blood STRUCTURE OF LEFT HAND / Unknown Venipuncture / Unknown 03/13/2024 7:51 PM TRACTOR EXPERT 03/13/2024 7:56 PM TRACTOR EXPERT Itz Lino MD LAB - BLOOD ORDERABLES Final Result [facility] Acute Care Lab [address] Lab (1st floor, no room number) [place] [address] * EKG 12-lead, tracing only (03/13/2024 7:21 PM TRACTOR EXPERT) Systolic Blood Pressure mmHg RADIOLOGY RESULTS Diastolic Blood Pressure mmHg RADIOLOGY RESULTS Ventricular Rate 97 BPM RAD IOLOGY RESULTS Atrial Rate 97 BPM RADIOLOG Y RESULTS [place] Interval 162 ms RADIOLOG Y RESULTS QRS Duration 88 ms RADIOLO GY RESULTS QT 360 ms RADIOLOGY RESULTS QTc 457 ms RADIOLOGY RESULTS P Sullivan 58 degrees RADIOLOGY RESULTS R AXIS 50 degrees RADIOLOGY RESULTS T Sullivan 50 degrees RADIOLOGY RESULTS Interpretation ECG Sinus rhythm Normal ECG No previous ECGs available Unconfirmed report - interpretation of this ECG is computer generated - see medical record for final interpretation Confirmed by - EMERGENCY ROOM, PHYSICIAN ([id number]), newspaper copy editor MICHELINE SUTHERLAND ([id number]) on 03/14/2024 6:46:57 AM RADIOLOGY RESULTS 03/13/2024 7:21 PM TRACTOR EXPERT 03/14/2024 6:46 AM TRACTOR EXPERT Itz Lino MD ECG ORDERABLES Edited Result - Final Performing Organization Address [facility] Co de Phone Number RADIOLOGY RESULTS * EKG Cardiac - HIM Scan (03/13/2024 12:00 AM TRACTOR EXPERT) 03/13/2024 Provider Outside ECG ORDERABLES Final Result from Last 3 Months Insurance [facility] Care Teams Mid Level Clinician Relationship Specialty Start Date End Date [place] [address] [place] [address] PCP - General 01/01/23
--- OUTSIDE RECORDS SUMMARY | 2024-04-25 15:37 | XMS_ITS | Encounter Summary ---
Author Organization [facility] Address [address] [place] [address] Care Team Providers Care Wound Care Rn Name Role Phone Mp Brown DO Primary Care Provider [phone] Reason for Visit * Reason Comments Chest Pain Encounter Details Date Type Department Care Team (Late st Contact Info) Description 03/13/2024 8:58 PM RIM FIRE CHARGER OPERATOR - 03/13/2024 11:28 PM RIM FIRE CHARGER OPERATOR Emergency [facility] Emergency Dept [address] [place] [address] [phone] Itz Lino MD EMERGENCY PHYSICIAN PA [address] [place] [address] [place] [id number] Nonspecific chest pain; Anxiety state Discharge Disposition: Home or Self Care Social History Tobacco Use Types Packs/Day Years Used Date Smoking Tobacco: Never Assessed Adolescent Education Answer Date Record ed Getting School Help Needed Not on file 01/01 Comments No Sex and Gender Information Value Date Recorded Sex Assigned at Not on file Legal Sex Female 3:23 AM RIM FIRE CHARGER OPERATOR Gender Identity Not on file Sexual Orientation Not on file documented as of this encounter Last Filed Vital Signs Vital Sign Reading Time Taken Comments Blood Pressure 157/88 03/13/2024 7:26 PM RIM FIRE CHARGER OPERATOR Pulse 101 03/13/2024 7:26 PM RIM FIRE CHARGER OPERATOR Temperature 36.7 C (98 F) 03/13/2024 7:26 PM RIM FIRE CHARGER OPERATOR Respiratory Rate 18 03/13/2024 7:26 PM RIM FIRE CHARGER OPERATOR Oxygen Saturation 97% 03/13/2024 7:26 PM RIM FIRE CHARGER OPERATOR Inhaled Oxygen Concentration - - Weight - - Height - - Body Mass Index - - documented in this encounter Discharge Instructions * Attachments The following attachments cannot be sent through Care Everywhere. * Generalized Anxiety Disorder (Brazilian) * Chest Pain (Brazilian) documented in this encounter Medications at Time of Discharge LORazepam (ATIVAN) 1 MG tablet Take 1 tablet (1 mg) by mouth every 6 hours as needed for anxiety. 3 tablet 03/13/2024 cyclobenzaprine (FLEXERIL) 10 MG tablet Take 1 tablet (10 mg) by mouth 3 times daily as needed for muscle spasms 15 tablet 01/01/2023 ibuprofen (ADVIL/MOTRIN) 600 MG tablet Take 1 tablet (600 mg) by mouth every 8 hours as needed for moderate pain 30 tablet 01/01/2023 documented as of this encounter ED Notes * Itz Lino MD - 03/13/2024 9:41 PM CST Emergency Department Note History of Present Illness Chief Complaint Chest Pain HPI Fide Millan is a 59 year old female on Eliquis with a history of hypertension, panic attacks,atrial fibrillation and diabetes mellitus presenting with burning chest pain that started yesterday(03/12/24). She notes pain with deep breathing. Her symptoms wax and wane. This afternoon, her painworsened. Nothing triggers or changes the pain. She denies shortness of breath, nausea, diaphoretic, fever, cough, abdominal pain, changes in bowls, changes in bladder or leg edema. No recent missed doses of her blood thinner. Of note, the patient is out of her Ativan. Her is present at bedside. Independent Historian None Review of External Notes Reviewed urgent care visit from earlier today referring the patient to the ER. Past Medical History Medical History and Problem List Atrial fibrillation Diabetes mellitus RLS Hypothyroidism Hyperlipidemia Hypertension GERD YOKO UTI Medications Amlodipine Celecoxib Cyclobenzaprine Diltiazem Eliquis Lisinopril Levothyroxine Lorazepam Metformin Metoprolol tartrate Rosuvastatin Pantoprazole Semaglutide Simvastatin Surgical History Cholecystectomy C section Knee arthroscopy Tubal ligation Ablation Shoulder arthroscopy Colonoscopy Physical Exam Patient Vitals for the past 24 hrs: BP Temp Temp src Pulse Resp SpO2 03/13/24 1926 (!) 157/88 98 ??F (36.7 ??C) Temporal 101 18 97 % Physical Exam Vitals and nursing note reviewed. Constitutional: General: She is not in acute distress. Appearance: She is not ill-appearing. HENT: Head: Normocephalic and atraumatic. Right Ear: External ear normal. Left Ear: External ear normal. Nose: Nose normal. Mouth/Throat: Mouth: Mucous membranes are moist. Eyes: Extraocular Movements: Extraocular movements intact. Conjunctiva/sclera: Conjunctivae normal. Cardiovascular: Rate and Rhythm: Normal rate and regular rhythm. Heart sounds: No murmur heard. Pulmonary: Effort: Pulmonary effort is normal. No respiratory distress. Breath sounds: Normal breath sounds. No wheezing, rhonchi or rales. Abdominal: General: Abdomen is flat. Bowel sounds are normal. There is no distension. Palpations: Abdomen is soft. Tenderness: There is no abdominal tenderness. There is no guarding or rebound. Musculoskeletal: General: No deformity or signs of injury. Cervical back: Normal range of motion and neck supple. Skin: General: Skin is warm and dry. Findings: No rash. Neurological: Mental Status: She is alert and oriented to person, place, and time. Psychiatric: Mood and Affect: Mood is anxious. Behavior: Behavior normal. Diagnostics Lab Results Labs Ordered and Resulted from Time of ED Arrival to Time of ED Departure BASIC METABOLIC PANEL - Abnormal Result Value Sodium 137 Potassium 3.8 Chloride 102 Carbon Dioxide (CO2) 20 (*) Anion Gap 15 Urea Nitrogen 14.6 Creatinine 0.70 GFR Estimate >90 Calcium 9.5 Glucose 180 (*) CBC WITH PLATELETS AND DIFFERENTIAL - Abnormal WBC Count 7.7 RBC Count 5.19 Hemoglobin 12.3 Hematocrit 40.0 MCV 77 (*) MCH 23.7 (*) MCHC 30.8 (*) RDW 15.6 (*) Platelet Count 288 % Neutrophils 56 % Lymphocytes 33 % Monocytes 7 % Eosinophils 3 % Basophils 0 % Immature Granulocytes 0 NRBCs per 100 WBC 0 Absolute Neutrophils 4.3 Absolute Lymphocytes 2.5 Absolute Monocytes 0.6 Absolute Eosinophils 0.2 Absolute Basophils 0.0 Absolute Immature Granulocytes 0.0 Absolute NRBCs 0.0 TROPONIN T, HIGH SENSITIVITY - Normal Troponin T, High Sensitivity <6 Imaging XR Chest 2 Views Final Result IMPRESSION: No acute cardiopulmonary or musculoskeletal abnormalities identified to explain patient's chest pain clinically. Moderate hypertrophic changes in the spine. EKG ECG taken at 1921, ECG read at 1923 Normal sinus rhythm Normal ECG Rate 97 bpm. VA interval 162 ms. QRS duration 88 ms. QT/QTc 360/457 ms. P-R-T axes 58 50 50. Independent Interpretation CXR: No pneumothorax or infiltrate. ED Course Medications Administered Medications LORazepam (ATIVAN) tablet 1 mg (1 mg Oral $Given 03/13/242151) ibuprofen (ADVIL/MOTRIN) tablet 400 mg (400 mg Oral $Given 03/13/242151) Procedures Procedures Discussion of Management None ED Course ED Course as of 03/14/24 0314 WedMar 13, [id number] I obtained the history and examined the patient as noted above. 2212 EKG 12-lead, tracing only Additional Documentation None Medical Decision Making / Diagnosis [facility] Diagnoses: None MIPS None [facility] Fide Millan is a 59 year old female who presents with nonspecific chest pain today. She does admit to history of anxiety and feels this could be anxiety. Symptoms are not significantly reproducible with palpation so lower suspicion for musculoskeletal etiology. ACS is certainly possibility, however her EKG is nonischemic and her troponin is undetectable. Low suspicion for PE given that she is anticoagulated and has been compliant with her Eliquis. Symptoms do not sound consistent with aortic dissection and she has no pulse deficits or wide mediastinum on chest x-ray. Given her reassuring workup and improvement of symptoms after being given a dose of Ativan, we will plan to give a few doses of Ativan for home and recommend prompt follow-up with primary care. We discussed return precautions. Disposition The patient was discharged. Diagnosis ICD-10-CM 1. Nonspecific chest pain R07.9 2. Anxiety state F41.1 Discharge Medications Discharge Medication List as of 03/13/2024 11:25 PM START taking these medications Details LORazepam (ATIVAN) 1 MG tablet Take 1 tablet (1 mg) by mouth every 6 hours as needed for anxiety., Disp-3 tablet, R-0, Local Print Scribe Disclosure: Mick Mathews, am serving as a scribe at 10:14 PM on 03/13/2024 to document services personally performed by Itz Lino MD based on my observations and the provider's statements to me. Scribe Disclosure: Fide Mathews, am serving as the scribe animal trainer for Mick Vasques, the scribe trainee, at 11:23 PM on 03/13/2024 to document services personally performed by Itz Lino MD based on our observations and the provider's statements to us. Itz Lino MD 03/14/246 FIRE CHARGER OPERATOR * Marilu Mojica RN - 03/13/2024 7:28 PM CST Presents to triage with c/o intermittent mid sternal chest pain that started yesterday. Pain feels like a burning sensation. Patient states she thinks she might just be anxious and that she has had chest pain with anxiety previously. Hx of a fib. Was seen at and sent to ED for further eval. FIRE CHARGER OPERATOR documented in this encounter Plan of Treatment Not on file documented as of this encounter Procedures Procedure Name Priority Date/Time Associated Diagnosis Comments XR CHEST 2 VIEWS STAT 03/13/2024 10:0 0 PM RIM FIRE CHARGER OPERATOR EXTRA TUBE STAT 03/13/2024 7:51 PM RIM FIRE CHARGER OPERATOR EXTRA RED TOP TUBE STAT 03/13/2024 7: 51 PM RIM FIRE CHARGER OPERATOR EXTRA BLUE TOP TUBE STAT 03/13/2024 7 :51 PM RIM FIRE CHARGER OPERATOR CBC WITH PLATELETS AND DIFFERENTIAL STAT 03/13/2024 7:51 PM RIM FIRE CHARGER OPERATOR TROPONIN T, HIGH SENSITIVITY STAT 03/13/2024 7:51 PM RIM FIRE CHARGER OPERATOR CBC WITH PLATELETS & DIFFERENTIAL STAT 03/13/2024 7:51 PM RIM FIRE CHARGER OPERATOR BASIC METABOLIC PANEL STAT 03/13/2024 7:51 PM RIM FIRE CHARGER OPERATOR EKG 12-LEAD, TRACING ONLY STAT 03/13/2024 7:21 PM RIM FIRE CHARGER OPERATOR documented in this encounter Results * XR Chest 2 Views (03/13/2024 10:00 PM RIM FIRE CHARGER OPERATOR) Anatomical Region Laterality Modality Chest Computed Radiogr aphy 03/13/2024 10:0 0 PM RIM FIRE CHARGER OPERATOR Impressions 03/13/2024 10:12 PM RIM FIRE CHARGER OPERATOR IMPRESSION: No acute cardiopulmonary or musculoskeletal abnormalities identified to explain patient's chest pain clinically. Moderate hypertrophic changes in the spine. Narrative 03/13/2024 10:12 PM RIM FIRE CHARGER OPERATOR EXAM: XR CHEST 2 VIEWS LOCATION: [facility] DATE: 03/13/2024 INDICATION: cp COMPARISON: 01/01/2023 Procedure Note Lino Montes MD - 03/13/2024 EXAM: XR CHEST 2 VIEWS LOCATION: [facility] DATE: 03/13/2024 INDICATION: cp COMPARISON: 01/01/2023 IMPRESSION: No acute cardiopulmonary or musculoskeletal abnormalitiesidentified to explain patient's chest pain clinically. Moderatehypertrophic changes in the spine. Itz Lino MD IMG DIAGNOSTIC IMAGING ORDERA BLES Final Result * Extra Red Top Tube (03/13/2024 7:51 PM RIM FIRE CHARGER OPERATOR) Hold Specimen [facility] 03/13/2024 9:03 PM RIM FIRE CHARGER OPERATOR [facility] Blood STRUCTURE OF LEFT HAND / Unknown Venipuncture / Unknown 03/13/2024 7:51 PM RIM FIRE CHARGER OPERATOR 03/13/2024 7:57 PM RIM FIRE CHARGER OPERATOR Itz Lino MD LAB - BLOOD ORDERABLES Final Result LABORATORY [facility] Acute Care Lab [address] Lab (1st floor, no room number) [place] [address], [facility] * Extra Blue Top Tube (03/13/2024 7:51 PM RIM FIRE CHARGER OPERATOR) Hold Specimen [facility] 03/13/2024 9:03 PM RIM FIRE CHARGER OPERATOR LABORATORY Blood STRUCTURE OF LEFT HAND / Unknown Venipuncture / Unknown 03/13/2024 7:51 PM RIM FIRE CHARGER OPERATOR 03/13/2024 7:56 PM RIM FIRE CHARGER OPERATOR us Itz Lino MD LAB - BLOOD ORDERABLES Final Result [facility] Acute Care Lab [address] Lab (1st floor, no room number) [place] [address], [facility] * (ABNORMAL) CBC with platelets and differential (03/13/2024 7:51 PM RIM FIRE CHARGER OPERATOR) Pathologist [facility] WBC Count 7.7 4.0 - 11.0 10e3/uL 03/13/2024 8:07 PM RIM FIRE CHARGER OPERATOR [facility] RBC Count 5.19 3.80 - 5.20 10e6/uL 03/13/2024 8:07 PM RIM FIRE CHARGER OPERATOR [facility] Hemoglobin 12.3 11.7 - 15.7 g/dL 03/13/2024 8:07 PM RIM FIRE CHARGER OPERATOR [facility] Hematocrit 40.0 35.0 - 47.0 % 03/13/2024 8:07 PM RIM FIRE CHARGER OPERATOR [facility] MCV 77(L) 78 - 100 fL 03/13/2024 8:07 PM RIM FIRE CHARGER OPERATOR [facility] MCH 23.7(L) 26.5 - 33.0 pg 03/13/2024 8:07 PM RIM FIRE CHARGER OPERATOR [facility] MCHC 30.8(L) 31.5 - 36.5 g/dL 03/13/2024 8:07 PM RIM FIRE CHARGER OPERATOR [facility] RDW 15.6(H) 10.0 - 15.0 % 03/13/2024 8:07 PM RIM FIRE CHARGER OPERATOR [facility] Platelet Count 288 150 - 450 10e3/uL 03/13/2024 8:07 PM RIM FIRE CHARGER OPERATOR [facility] % Neutrophils 56 % 03/13/2024 8:07 PM RIM FIRE CHARGER OPERATOR [facility] % Lymphocytes 33 % 03/13/2024 8:07 PM RIM FIRE CHARGER OPERATOR [facility] % Monocytes 7 % 03/13/2024 8:07 PM RIM FIRE CHARGER OPERATOR [facility] % Eosinophils 3 % 03/13/2024 8:07 PM RIM FIRE CHARGER OPERATOR [facility] % Basophils 0 % 03/13/2024 8:07 PM RIM FIRE CHARGER OPERATOR [facility] % Immature Granulocytes 0 % 03/13/2024 8:07 PM RIM FIRE CHARGER OPERATOR [facility] NRBCs per 100 WBC 0 <1 /100 12/23/2 024 8:07 PM RIM FIRE CHARGER OPERATOR [facility] Absolute Neutrophils 4.3 1.6 - 8.3 10e3/uL 03/13/2024 8:07 PM RIM FIRE CHARGER OPERATOR [facility] Absolute Lymphocytes 2.5 0.8 - 5.3 10e3/uL 03/13/2024 8:07 PM RIM FIRE CHARGER OPERATOR LABORATORY Absolute Monocytes 0.6 0.0 - 1.3 10e3/uL 03/13/2024 8:07 PM RIM FIRE CHARGER OPERATOR [facility] Absolute Eosinophils 0.2 0.0 - 0.7 10e3/uL 03/13/2024 8:07 PM RIM FIRE CHARGER OPERATOR LABORATORY Absolute Basophils 0.0 0.0 - 0.2 10e3/uL 03/13/2024 8:07 PM RIM FIRE CHARGER OPERATOR LABORATORY Absolute Immature Granulocytes 0.0 <=0.4 10e3/uL 03/13/2024 8:07 PM RIM FIRE CHARGER OPERATOR LABORATORY Absolute NRBCs 0.0 10e3/uL 03/13/2024 8:07 PM RIM FIRE CHARGER OPERATOR LABORATORY Blood STRUCTURE OF LEFT HAND / Unknown Venipuncture / Unknown 03/13/2024 7:51 PM RIM FIRE CHARGER OPERATOR 03/13/2024 7:56 PM RIM FIRE CHARGER OPERATOR us Itz Lino MD LAB - BLOOD ORDERABLES Final Result LABORATORY [facility] Acute Care Lab [address] [facility] Lab (1st floor, no room number) [place] [address], [facility] * Troponin T, High Sensitivity (03/13/2024 7:51 PM RIM FIRE CHARGER OPERATOR) Troponin T, High Sensitivity <6 <=14 ng/L 03/13/2024 8:36 PM RIM FIRE CHARGER OPERATOR LABORATORY Comment: Either a High Sensitivity Troponin [...] Unknown Venipuncture / Unknown 03/13/2024 7:51 PM RIM FIRE CHARGER OPERATOR 03/13/2024 7:56 PM RIM FIRE CHARGER OPERATOR us Itz Lino MD LAB - BLOOD ORDERABLES Final Result LABORATORY [facility] Acute Care Lab [address] Lab (1st floor, no room number) [place] [address], [facility] * (ABNORMAL) Basic metabolic panel (BMP) (03/13/2024 7:51 PM RIM FIRE CHARGER OPERATOR) Sodium 137 135 - 145 mmol/L 03/13/2024 8:36 PM [facility] Potassium 3.8 3.4 - 5.3 mmol/L 03/13/2024 8:36 PM [facility] Chloride 102 98 - 107 mmol/L 03/13/2024 8:36 PM [facility] Carbon Dioxide (CO2) 20(L) 22 - 29 mmol/L 03/13/2024 8:36 PM [facility] Anion Gap 15 7 - 15 mmol/L 03/13/2024 8:36 PM [facility] Urea Nitrogen 14.6 8.0 - 23.0 mg/dL 03/13/2024 8:36 PM [facility] Creatinine 0.70 0.51 - 0.95 mg/dL 03/13/2024 8:36 PM [facility] GFR Estimate >90 >60 mL/min/1.7 3m2 03/13/2024 8:36 PM [facility] Comment:eGFR calculated us2020 CKD-EPI equation. Calcium 9.5 8.8 - 10.4 mg/dL 03/13/2024 8:36 PM [facility] Comment:Reference intervals for this test were updated on 10/05/2023 to reflect our healthy population more accurately. There may be differences in the flagging of prior results with similar values performed with this method. Those prior results can be interpreted in the context of the updated reference intervals. Glucose 180(H) 70 - 99 mg/dL 03/13/2024 8:36 PM RIM FIRE CHARGER OPERATOR LABORATORY Blood STRUCTURE OF LEFT HAND / Unknown Venipuncture / Unknown 03/13/2024 7:51 PM RIM FIRE CHARGER OPERATOR 03/13/2024 7:56 PM RIM FIRE CHARGER OPERATOR Itz Lino MD LAB - BLOOD ORDERABLES Final Result [facility]ORAT[facility] Acute Care Lab [address] Lab (1st floor, no room number) [place] [address] * EKG 12-lead, tracing only (03/13/2024 7:21 PM RIM FIRE CHARGER OPERATOR) Systolic Blood Pressure mmHg RADIOLOGY RESULTS Diastolic Blood Pressure mmHg RADIOLOGY RESULTS Ventricular Rate 97 BPM RAD IOLOGY RESULTS Atrial Rate 97 BPM RADIOLOG Y RESULTS [facility] Interval 162 ms RADIOLOG Y RESULTS QRS Duration 88 ms RADIOLO GY RESULTS QT 360 ms RADIOLOGY RESULTS QTc 457 ms RADIOLOGY RESULTS P [place] 58 degrees RADIOLOGY RESULTS R AXIS 50 degrees RADIOLOGY RESULTS T [place] 50 degrees RADIOLOGY RESULTS Interpretation ECG Sinus rhythm Normal ECG No previous ECGs available Unconfirmed report - interpretation of this ECG is computer generated - see medical record for final interpretation Confirmed by - EMERGENCY ROOM, PHYSICIAN ([id number]), graphic editor MICHELINE SUTHERLAND ([id number]) on 03/14/2024 6:46:57 AM RADIOLOGY RESULTS 03/13/2024 7:21 PM RIM FIRE CHARGER OPERATOR 03/14/2024 6:46 AM RIM FIRE CHARGER OPERATOR Itz Lino MD ECG ORDERABLES Edited Result - Final RADIOLOGY RESULTS documented in this encounter Visit Diagnoses Diagnosis Nonspecific chest pain Anxiety state Anxiety state, unspecified documented in this encounter Administered Medications Inactive Administered Medications - up to 3 most recent administrations Medication Order MAR Action Action Date Dose Rate Site ibuprofen (ADVIL/MOTRIN) tablet 400 mg 400 mg, Oral, ONCE, On Wed03/13/24 at 2150, For 1 dose $Given 03/13/2024 9:52 PM RIM FIRE CHARGER OPERATOR 400 mg LORazepam (ATIVAN) tablet 1 mg 1 mg, Oral, ONCE, On Wed03/13/24 at 2150, For 1 dose $Given 03/13/2024 9:52 PM RIM FIRE CHARGER OPERATOR 1 mg documented in this encounter Active and Recently Administered Medications Times are shown in RIM FIRE CHARGER OPERATOR. Scheduled Medication Order 03/11/2024 03/12/2024 03/13/2024 ibuprofen (ADVIL/MOTRIN) tablet 400 mg (COMPLETED) 400 mg, Oral, ONCE, On Wed03/13/24 at 2150, For 1 dose 2151 ($Given - Provi [place]: Jennifer Duggan RN) LORazepam (ATIVAN) tablet 1 mg (COMPLETED) 1 mg, Oral, ONCE, On Wed03/13/24 at 2150, For 1 dose 2151 ($Given - Provi [place]: Jennifer Duggan RN) documented in this encounter Care Teams Wound Care Rn Relationship Specialty Start Date End Date Mp Brown DO [address] [place] [address] PCP - General 01/01/23 documented as of this encounter
--- OUTSIDE RECORDS SUMMARY | 2024-04-25 15:37 | XMS_ITS | Encounter Summary ---
Author Organization [facility] Address [address], [place] [address] Care Team Providers Care Shredder Operator Name Role Phone Found, No Pcp [...] on filedocumented in this encounter Care Teams Shredder Operator Relationship Specialty Start Date End Date Found, No Pcp, [address] [place] [address] PCP - General 07/05/23 documented as of this encounter
--- OUTSIDE RECORDS SUMMARY | 2024-04-25 15:37 | XMS_ITS | Encounter Summary ---
Author Organization [facility] Address [address] [address] Care Team Providers Care Neuroscientist Name Role Phone Found, No Pcp Primary [...] on filedocumented in this encounter Care Teams Neuroscientist Relationship Specialty Start Date End Date Found, No Pcp, [address] [facility] [place] [address] PCP - General 07/05/23 documented as of this encounter
--- OUTSIDE RECORDS SUMMARY | 2024-04-25 15:37 | XMS_ITS | Encounter Summary ---
Author Organization [facility] Address [address] [place] [address] Care Team Providers Care Book Jogger Name Role Phone Found, No Pcp Primary Care Provider Unavailab le Encounter Details Date Type Department Care Team (Latest Contact Info) Description 12/22/1997 Orders Only Nikhil Ceja MD [address] [place], [place] [id number] Social History Tobacco Use Types Packs/Day Years Used Date Smoking Tobacco: Never Assessed Sex and Gender Information Value Date Recorded Sex Assigned at Not on file Gender Identity Not on file Sexual Orientation Not on file documented as of this encounter Plan of Treatment Not on file documented as of this encounter Visit Diagnoses Not on filedocumented in this encounter Care Teams Book Jogger Relationship Specialty Start Date End Date Found, No Pcp, [address] [place] [address] PCP - General 07/05/23 documented as of this encounter
--- OUTSIDE RECORDS SUMMARY | 2024-04-25 15:37 | XMS_ITS | Encounter Summary ---
Author Organization [facility] Address [address], [place] [address] Care Team Providers Care Pig Iron Loader Name Role Phone Found, No Pcp [...] on filedocumented in this encounter Care Teams Pig Iron Loader Relationship Specialty Start Date End Date Found, No Pcp, [address] [place] [address] PCP - General 07/05/23 documented as of this encounter
--- OUTSIDE RECORDS SUMMARY | 2024-04-25 15:37 | XMS_ITS | Encounter Summary ---
Author Organization [facility] Address [address], [place] [address] Care Team Providers Care Metal Refiner Name Role Phone Found, No Pcp Primary [...] filedocumented in this encounter Care Teams Metal Refiner Relationship Specialty Start Date End Date Found, No Pcp, [address] [place] [address] PCP - General 07/05/23 documented as of this encounter
--- OUTSIDE RECORDS SUMMARY | 2024-04-25 15:37 | XMS_ITS | Encounter Summary ---
Author Organization [facility] Address [address] [place] [address] Care Team Providers Care Jig Mill Operator Name Role Phone Found, No Pcp Primary Care Provider Unavailab le Encounter Details Date Type Department Care Team (Latest Contact Info) Description 06/30/1997 Orders Only Kyree Coronado MD [address] [place], [place] [id number] Social History Tobacco Use Types Packs/Day Years Used Date Smoking Tobacco: Never Assessed Sex and Gender Information Value Date Recorded Sex Assigned at Not on file Gender Identity Not on file Sexual Orientation Not on file documented as of this encounter Plan of Treatment Not on file documented as of this encounter Visit Diagnoses Not on filedocumented in this encounter Care Teams Jig Mill Operator Relationship Specialty Start Date End Date Found, No Pcp, [address] [place] [address] PCP - General 07/05/23 documented as of this encounter
--- OUTSIDE RECORDS SUMMARY | 2024-04-25 15:37 | XMS_ITS | Encounter Summary ---
Author Organization [facility] Address [address] [place] [address] Care Team Providers Care Insulation Helper Name Role Phone Found, No Pcp Primary Care Provider Unavailab le Encounter Details Date Type Department Care Team (Latest Contact Info) Description 08/17/1996 Orders Only Paulina Villegas MD [address] [facility] [address] [place] [address] Social History Tobacco Use Types [...] on filedocumented in this encounter Care Teams Insulation Helper Relationship Specialty Start Date End Date Found, No Pcp, [address] [place] [address] PCP - General 07/05/23 documented as of this encounter
--- OUTSIDE RECORDS SUMMARY | 2024-04-25 15:37 | XMS_ITS | Encounter Summary ---
Author Organization [facility] Address [address] [address] Care Team Providers Care Manager Resort Name Role Phone Found, No Pcp Primary [...] filedocumented in this encounter Care Teams Manager Resort Relationship Specialty Start Date End Date Found, No Pcp, [address] [place] [address] PCP - General 07/05/23 documented as of this encounter
--- OUTSIDE RECORDS SUMMARY | 2024-04-25 15:37 | XMS_ITS | Encounter Summary ---
Author Organization [facility] Address [address], [place] [address] Care Team Providers Care Utility Operator Yarn Name Role Phone Found, No Pcp Primary [...] filedocumented in this encounter Care Teams Utility Operator Yarn Relationship Specialty Start Date End Date Found, No Pcp, [address] [place] [address] PCP - General 07/05/23 documented as of this encounter
--- OUTSIDE RECORDS SUMMARY | 2024-04-25 15:37 | XMS_ITS | Clinical Summary ---
Author Organization [facility] Address [address] [place] [address] Care Team Providers Care Business Continuity Strategy Director Name Role Phone Mp Borwn DO Primary Care Provider [phone] Allergies No known active allergies Medications cyclobenzaprine [...] needed for anxiety. 3 tablet 03/13/2024 Active Encounters Date Type Department Care Team Description 03/13/2024 8:58 PM BAKER HELPER - 03/13/2024 11:28 [address] [facility] Emergency Dept [address] [place] [address] Itz Lino MD Nonspecific chest pain; Anxiety state Discharge Disposition: Home or Self Care 03/13/2024 Travel from Last 3 Months Social History Tobacco Use Types Packs/Day Years Used Date Smoking Tobacco: Never Assessed Adolescent Education Answer Date Record ed Getting School Help Needed Not on file 01/01 Comments No Sex and Gender Information Value Date Recorded Sex Assigned at Not on file Legal Sex Female 3:23 AM BAKER HELPER Gender Identity Not on file Sexual Orientation Not on file Last Filed Vital Signs Vital Sign Reading Time Taken Comments Blood Pressure 157/88 03/13/2024 7:26 PM BAKER HELPER Pulse 101 03/13/2024 7:26 PM BAKER HELPER Temperature 36.7 C (98 F) 03/13/2024 7:26 PM BAKER HELPER Respiratory Rate 18 03/13/2024 7:26 PM BAKER HELPER Oxygen Saturation 97% 03/13/2024 7:26 PM BAKER HELPER Inhaled Oxygen Concentration - - Weight 158.3 kg (348 lb 15.8 oz) 2022 12:27 PM CDT Height 175.3 cm (5' 9) 01/01/2023 12:2 7 PM CDT Body Mass Index 51.54 01/01/2023 12:27 PM CDT Plan of Treatment Health Maintenance Due Date Last Done Comments ADVANCE CARE PLANNING 1965 ANNUAL REVIEW OF HM ORDERS 1965 CT COLONOGRAPHY 1965 FIT 1965 FLEX SIG 1965 MAMMO SCREENING 1965 sDNA (Cologuard) 1965 HIV SCREENING 1979 HEPATITIS C SCREENING 1982 LIPID 2004 PAP 04/15/2023 04/15/2020 COVID-19 Vaccine ( season) 2023 01/22/2023, 05/07/2022, 07/10/2021, Additional history exists INFLUENZA VACCINE (#1) 2023 , 12/17/2021, 12/18/2020, Additional history exists PHQ-2 (once per calendar year) 2024 YEARLY PREVENTIVE VISIT 08/31/2024 09/01/19 24, 07/13/2022, 05/19/2021, Additional history exists COLONOSCOPY 12/29/2025 12/30/2015 COLORECTAL CANCER SCREENING 12/29/2025 GLUCOSE 03/13/2027 03/13/2024 DTAP/TDAP/TD IMMUNIZATION (6 - Td or Tdap) 07/13/2032 07/13/2022, 01/02/2012, 12/23/2011, Additional history exists RSV VACCINE (1 - 1-dose 75+ series) 2039 ZOSTER IMMUNIZATION Completed 05/19/2021, 0 Pneumococcal Vaccine: 50+ Years Completed 07/13/2022, 03/30/2019, 06/11/2000 HPV IMMUNIZATION Aged Out No longer e [...] 2 VIEWS STAT 03/13/2024 10:0 0 PM BAKER HELPER CBC WITH PLATELETS & DIFFERENTIAL STAT 03/13/2024 7:51 PM BAKER HELPER EXTRA RED TOP TUBE STAT 03/13/2024 7: 51 PM BAKER HELPER EXTRA BLUE TOP TUBE STAT 03/13/2024 7 :51 PM BAKER HELPER CBC WITH PLATELETS AND DIFFERENTIAL STAT 03/13/2024 7:51 PM BAKER HELPER EXTRA TUBE STAT 03/13/2024 7:51 PM BAKER HELPER TROPONIN T, HIGH SENSITIVITY STAT 03/13/2024 7:51 PM BAKER HELPER BASIC METABOLIC PANEL STAT 03/13/2024 7:51 PM BAKER HELPER EKG 12-LEAD, TRACING ONLY STAT 03/13/2024 7:21 PM BAKER HELPER EKG CARDIAC - HIM SCAN 03/13/2024 12:00 AM BAKER HELPER from Last 3 Months Results * XR Chest 2 Views (03/13/2024 10:00 PM BAKER HELPER) Anatomical Region Laterality Modality Chest Computed Radiogr aphy 03/13/2024 10:0 0 PM BAKER HELPER Impressions 03/13/2024 10:12 PM BAKER HELPER IMPRESSION: No acute cardiopulmonary or musculoskeletal abnormalities identified to explain patient's chest pain clinically. Moderate hypertrophic changes in the spine. Narrative 03/13/2024 10:12 PM BAKER HELPER EXAM: XR CHEST 2 VIEWS LOCATION: [facility] DATE: 03/13/2024 INDICATION: cp COMPARISON: 01/01/2023 Procedure Note Lino Montes MD - 03/13/2024 EXAM: XR CHEST 2 VIEWS LOCATION: [facility] DATE: 03/13/2024 INDICATION: cp COMPARISON: 01/01/2023 IMPRESSION: No acute cardiopulmonary or musculoskeletal abnormalitiesidentified to explain patient's chest pain clinically. Moderatehypertrophic changes in the spine. Itz Lino MD IMG DIAGNOSTIC IMAGING ORDERA BLES Final Result * Extra Red Top Tube (03/13/2024 7:51 PM BAKER HELPER) Hold Specimen [facility] 03/13/2024 9:03 PM BAKER HELPER LABORATORY Blood STRUCTURE OF LEFT HAND / Unknown Venipuncture / Unknown 03/13/2024 7:51 PM BAKER HELPER 03/13/2024 7:57 PM BAKER HELPER Itz Lino MD LAB - BLOOD ORDERABLES Final Result [facility] [address] Lab (1st floor, no room number) [address] * Extra Blue Top Tube (03/13/2024 7:51 PM BAKER HELPER) Hold Specimen [facility] 03/13/2024 9:03 PM BAKER HELPER LABORATORY Blood STRUCTURE OF LEFT HAND / Unknown Venipuncture / Unknown 03/13/2024 7:51 PM BAKER HELPER 03/13/2024 7:56 PM BAKER HELPER us Itz Lino MD LAB - BLOOD ORDERABLES Final Result [facility] [address] Lab (1st floor, no room number) [address] * (ABNORMAL) CBC with platelets and differential (03/13/2024 7:51 PM BAKER HELPER) WBC Count 7.7 4.0 - 11.0 10e3/uL 03/13/2024 8:07 PM BAKER HELPER RH LABORATORY RBC Count 5.19 3.80 - 5.20 10e6/uL 03/13/2024 8:07 PM BAKER HELPER RH LABORATORY Hemoglobin 12.3 11.7 - 15.7 g/dL 03/13/2024 8:07 PM BAKER HELPER RH LABORATORY Hematocrit 40.0 35.0 - 47.0 % 03/13/2024 8:07 PM BAKER HELPER RH LABORATORY MCV 77(L) 78 - 100 fL 03/13/2024 8:07 PM BAKER HELPER RH LABORATORY MCH 23.7(L) 26.5 - 33.0 pg 03/13/2024 8:07 PM BAKER HELPER RH LABORATORY MCHC 30.8(L) 31.5 - 36.5 g/dL 03/13/2024 8:07 PM BAKER HELPER RH LABORATORY RDW 15.6(H) 10.0 - 15.0 % 03/13/2024 8:07 PM BAKER HELPER RH LABORATORY Platelet Count 288 150 - 450 10e3/uL 03/13/2024 8:07 PM BAKER HELPER RH LABORATORY % Neutrophils 56 % 03/13/2024 8:07 PM BAKER HELPER RH LABORATORY % Lymphocytes 33 % 03/13/2024 8:07 PM BAKER HELPER RH LABORATORY % Monocytes 7 % 03/13/2024 8:07 PM BAKER HELPER RH LABORATORY % Eosinophils 3 % 03/13/2024 8:07 PM BAKER HELPER RH LABORATORY % Basophils 0 % 03/13/2024 8:07 PM BAKER HELPER [facility] LABORATORY % Immature Granulocytes 0 % 03/13/2024 8:07 PM BAKER HELPER RH LABORATORY NRBCs per 100 WBC 0 <1 /100 024 8:07 PM BAKER HELPER RH LABORATORY Absolute Neutrophils 4.3 1.6 - 8.3 10e3/uL 03/13/2024 8:07 PM BAKER HELPER RH LABORATORY Absolute Lymphocytes 2.5 0.8 - 5.3 10e3/uL 03/13/2024 8:07 PM BAKER HELPER RH LABORATORY Absolute Monocytes 0.6 0.0 - 1.3 10e3/uL 03/13/2024 8:07 PM BAKER HELPER RH LABORATORY Absolute Eosinophils 0.2 0.0 - 0.7 10e3/uL 03/13/2024 8:07 PM BAKER HELPER RH LABORATORY Absolute Basophils 0.0 0.0 - 0.2 10e3/uL 03/13/2024 8:07 PM BAKER HELPER RH LABORATORY Absolute Immature Granulocytes 0.0 <=0.4 10e3/uL 03/13/2024 8:07 PM BAKER HELPER LABORATORY Absolute NRBCs 0.0 10e3/uL 03/13/2024 8:07 PM BAKER HELPER LABORATORY Blood STRUCTURE OF LEFT HAND / Unknown Venipuncture / Unknown 03/13/2024 7:51 PM BAKER HELPER 03/13/2024 7:56 PM BAKER HELPER Itz Lino MD LAB - BLOOD ORDERABLES Final Result LABORATORY [facility] [address] Lab (1st floor, no room number) [place] [id number] [place] [address] * Troponin T, High Sensitivity (03/13/2024 7:51 PM BAKER HELPER) [facility] Troponin T, High Sensitivity <6 <=14 ng/L 03/13/2024 8:36 PM BAKER HELPER RH LABORATORY Comment: Either a High Sensitivity [...] Unknown Venipuncture / Unknown 03/13/2024 7:51 PM BAKER HELPER 03/13/2024 7:56 PM BAKER HELPER Itz Lino MD LAB - BLOOD ORDERABLES Final Result Performing Organization Address City/[facility]/ZIP Co de Phone Number LABORATORY [facility] [address] Lab (1st floor, no room number) [place] [address], [place] * (ABNORMAL) Basic metabolic panel (BMP) (03/13/2024 7:51 PM BAKER HELPER) Sodium 137 135 - 145 mmol/L 03/13/2024 8:36 PM BAKER HELPER LABORATORY Potassium 3.8 3.4 - 5.3 mmol/L 03/13/2024 8:36 PM BAKER HELPER LABORATORY Chloride 102 98 - 107 mmol/L 03/13/2024 8:36 PM BAKER HELPER LABORATORY Carbon Dioxide (CO2) 20(L) 22 - 29 mmol/L 03/13/2024 8:36 PM BAKER HELPER LABORATORY Anion Gap 15 7 - 15 mmol/L 03/13/2024 8:36 PM BAKER HELPER LABORATORY Urea Nitrogen 14.6 8.0 - 23.0 mg/dL 03/13/2024 8:36 PM BAKER HELPER LABORATORY Creatinine 0.70 0.51 - 0.95 mg/dL 03/13/2024 8:36 PM BAKER HELPER LABORATORY GFR Estimate >90 >60 mL/min/1.7 3m2 03/13/2024 8:36 PM BAKER HELPER LABORATORY Comment:eGFR calculated usin 2020 CKD-EPI equation. Calcium 9.5 8.8 - 10.4 mg/dL 03/13/2024 8:36 PM BAKER HELPER LABORATORY Comment:Reference intervals for this test were updated on 10/05/2023 to reflect our healthy population more accurately. There may be differences in the flagging of prior results with similar values performed with this method. Those prior results can be interpreted in the context of the updated reference intervals. Glucose 180(H) 70 - 99 mg/dL 03/13/2024 8:36 PM BAKER HELPER LABORATORY Blood STRUCTURE OF LEFT HAND / Unknown Venipuncture / Unknown 03/13/2024 7:51 PM BAKER HELPER 03/13/2024 7:56 PM BAKER HELPER us Itz Lino MD LAB - BLOOD ORDERABLES Final Result LABORATORY [facility] [address] Lab (1st floor, no room number) [place] [address], [facility] * EKG 12-lead, tracing only (03/13/2024 7:21 PM BAKER HELPER) Systolic Blood Pressure mmHg RADIOLOGY RESULTS Diastolic Blood Pressure mmHg RADIOLOGY RESULTS Ventricular Rate 97 BPM RAD IOLOGY RESULTS Atrial Rate 97 BPM RADIOLOG Y RESULTS IA Interval 162 ms RADIOLOG Y RESULTS QRS Duration 88 ms RADIOLO GY RESULTS QT 360 ms RADIOLOGY RESULTS QTc 457 ms RADIOLOGY RESULTS P [place] 58 degrees RADIOLOGY RESULTS R AXIS 50 degrees RADIOLOGY RESULTS T [place] 50 degrees RADIOLOGY RESULTS Interpretation ECG Sinus rhythm Normal ECG No previous ECGs available Unconfirmed report - interpretation of this ECG is computer generated - see medical record for final interpretation Confirmed by - EMERGENCY ROOM, PHYSICIAN ([id number]), editor department MICHELINE SUTHERLAND ([id number]) on 03/14/2024 6:46:57 AM RADIOLOGY RESULTS 03/13/2024 7:21 PM BAKER HELPER 03/14/2024 6:46 AM BAKER HELPER us Itz Lino MD ECG ORDERABLES Edited Result - Final RADIOLOGY RESULTS * EKG Cardiac - HIM Scan (03/13/2024 12:00 AM BAKER HELPER) 03/13/2024 us Provider Outside ECG ORDERABLES Final Result from Last 3 Months Insurance [facility] Care Teams Business Continuity Strategy Director Relationship Specialty Start Date End Date Mp Brown DO [address] [place] [address] PCP - General 01/01/23
--- OUTSIDE RECORDS SUMMARY | 2024-04-25 15:37 | XMS_ITS | Encounter Summary ---
Author Organization [facility] Address [address], [place] [address] Care Team Providers Care Feather Separator Name Role Phone Found, No Pcp Primary [...] on filedocumented in this encounter Care Teams Feather Separator Relationship Specialty Start Date End Date Found, No Pcp, [address] [place] [address] PCP - General 07/05/23 documented as of this encounter
--- OUTSIDE RECORDS SUMMARY | 2024-04-25 15:37 | XMS_ITS | Encounter Summary ---
[facility] Address [address], [place] [address] Care Team Providers Care Mate Fourth Name Role Phone Found, No Pcp MD Primary Care Provider Unavailab le Reason for Visit * Reason Comments CHEST PAIN--ED Encounter Details Date Type Department Care Team (Late st Contact Info) Description 03/13/2024 7:00 PM CUPROUS CHLORIDE HELPER Office Visit [facility] [address] [place] [address] Amy Blank PA-C [address] [place], [place] [phone] Chest pressure Social History Tobacco Use Types Packs/Day Years Used Date Smoking Tobacco: Never Smokeless Tobacco: Never Sex and Gender Information Value Date Recorded Sex Assigned at Not on file Gender Identity Not on file Sexual Orientation Not on file documented as of this encounter Last Filed Vital Signs Vital Sign Reading Time Taken Comments Blood Pressure 148/79 03/13/2024 6:57 PM CUPROUS CHLORIDE HELPER Pulse 98 03/13/2024 6:57 PM CUPROUS CHLORIDE HELPER Temperature 36.8 C (98.3 F) 03/13/2024 6:57 PM CUPROUS CHLORIDE HELPER Respiratory Rate 18 03/13/2024 6:57 PM CUPROUS CHLORIDE HELPER Oxygen Saturation - - Inhaled Oxygen Concentration - - Weight - - Height - - Body Mass Index - - documented in this encounter Progress Notes * Amy Blank PA-C - 03/13/2024 7:00 PM CST [facility] Provider Note Patient: Fide Millan Age: 59 y.o. Date Of : 1965 Urgent Care Provider: CHAVEZ Yeung Date of Service: 03/13/2024 CHIEF COMPLAINT Chief Complaint Patient presents with CHEST PAIN--ED MEDICAL DECISION MAKING PATIENT SENT TO ED FOR: chest pain [facility] ED - for troponin, unable to obtain from HISTORY OF PRESENT ILLNESS 59 y.o. year old female presents to the Urgent Care today for evaluation of chest tightness and burning sensation in the chest for the last 2 days. New diagnosis of the AFib. She ran out of her Ativan, usually gets 6 tablets a month and is out of this medication and I able to get into see her doctor until next week. Reviewed Nursing Notes: Marleen Caputo RN 03/13/24 441 Addendum Patient reports burning sensation in center/right chest and chest tightness since yesterday. Denies shortness of breath. Hx anxiety/panic attacks, out of Ativan, called PCP, needs appt before refilling. New dx a-fib, denies palpitations, lightheadedness. Hx reflux - taking pantoprazole. drove her to urgent care. REVIEW OF SYSTEMS As reflected above in HPI. With open ended questioning the patient denies any other complaints or concerns for today's visit. PHYSICAL EXAM Vitals Reviewed: BP (!) 148/79 (BP Location: Left Arm, BP Cuff Size: Large) Pulse 98 Temp 36.8 ??C (98.3 ??F) (Oral) Resp 18 Constitutional: Alert, Cooperative, Conversational HENT: Atraumatic, no obvious abnormality to the head/face Eyes: Eyes track movements normally during exam, no drainage, conjunctiva normal Neck: Moves neck freely and normally throughout exam, no visible abnormality Respiratory: No respiratory distress. SPO2 as above. Normal Effort. Talking in full sentences. Cardiovascular: BP and Heart Rate as above Musculoskeletal: Normal use of extremities throughout exam without evidence of abnormality. Neurological: Alert and oriented. Speech is clear and appropriate. Skin: Dry, No evidence rash/abrasion/laceration on my exam. Psychiatric: Normal affect. Normal behavior. LABS - IMAGING - MEDICATIONS LABS/EKG: Results for orders placed or performed in visit on 03/13/24 ECG 12-LEAD ROUTINE (Non Lab to perform-Today)-STAT Result Value Ref Range Ventricular Rate 94 BPM Atrial Rate 94 BPM P-R Interval 156 ms QRS Duration 90 ms QT 374 ms QTC 467 ms P [place] 51 degrees R [place] 38 degrees T [place] 47 degrees EKG on my interpretation shows normal sinus rhythm, no evidence of acute ST segment elevation or depression no evidence of atrial fibrillation or atrial flutter, rate within normal limits. PRIOR HISTORY Medications: Outpatient Medications Prior to Visit Medication Sig Dispense Refill amLODIPine (NORVASC) 5 MG tablet Take 1 Tablet (5 mg) by mouth daily. celecoxib (CELEBREX) 200 MG capsule Take 1 Capsule (200 mg) by mouth daily. cyclobenzaprine (FLEXERIL) 10 MG tablet Take 1 Tablet (10 mg) by mouth three times a day as needed for Muscle Spasms. 30 Tablet 0 diclofenac (VOLTAREN) 75 MG enteric coated tablet Take 1 Tablet (75 mg) by mouth two times daily asneeded. (Patient not taking: Reported on 03/13/2024) 30 Tablet 1 dilTIAZem CD (CARDIZEM CD) 120 MG 24 hour release capsule Take 1 Capsule (120 mg) by mouth daily. ELIQUIS 5 MG tablet Take 1 Tablet (5 mg) by mouth two times a day. ibuprofen (MOTRIN) 600 MG tablet Take 1 Tablet (600 mg) by mouth every 8 hours. (Patient not taking: Reported on 03/13/2024) levothyroxine (SYNTHROID) 125 MCG tablet Take 1 Tablet (125 mcg) by mouth daily. lisinopril (ZESTRIL) 40 MG tablet Take 1 Tablet (40 mg) by mouth daily. LORazepam (ATIVAN) 1 MG tablet Take 1 Tablet (1 mg) by mouth daily as needed. metFORMIN XR (GLUCOPHAGE XR) 750 MG 24 hour release tablet Take 1 Tablet (750 mg) by mouth daily. metoprolol tartrate (LOPRESSOR) 100 MG tablet Take 1 Tablet (100 mg) by mouth two times a day. (Patient not taking: Reported on 03/13/2024) pantoprazole DR (PROTONIX) 40 MG tablet Take 1 Tablet (40 mg) by mouth daily. RYBELSUS 14 MG tablet Take 1 Tablet by mouth daily. simvastatin (ZOCOR) 10 MG tablet Take 1 Tablet (10 mg) by mouth daily. (Patient not taking: Reported on 03/13/2024) No facility-administered medications prior to visit. Reviewed via EPIC Chart Review/CareEverywhere: Allergies Past Medical/Surgical History Family/Social History ASSESSMENT & PLAN DIAGNOSIS: ICD-10-CM 1. Chest pressure R07.89 ECG 12-LEAD ROUTINE (Non Lab to perform-Today)-STAT No orders of the defined types were placed in this encounter. DISPOSITION: Escalated to higher level of care - sent to ED There are no Patient Instructions on file for this visit. [facility] OUS CHLORIDE HELPER documented in this encounter Nursing Notes * Marleen Caputo, RN - 03/13/2024 7:00 PM CST Patient reports burning sensation in center/right chest and chest tightness since yesterday. Denies shortness of breath. Hx anxiety/panic attacks, out of Ativan, called PCP, needs appt before refilling. New dx a-fib, denies palpitations, lightheadedness. Hx reflux - taking pantoprazole. drove her to urgent care. OUS CHLORIDE HELPER documented in this encounter Plan of Treatment Not on file documented as of this encounter Procedures Procedure Name Priority Date/Time Associated Diagnosis Comments ECG 12 LEAD OUTPATIENT STAT 03/13/2024 7:03 PM CUPROUS CHLORIDE HELPER Chest pressure documented in this encounter Results * ECG 12-LEAD ROUTINE (Non Lab to perform-Today)-STAT (03/13/2024 7:03 PM CUPROUS CHLORIDE HELPER) Ventricular Rate 94 BPM MUSE GHP Atrial Rate 94 BPM MUSE GHP P-R Interval 156 ms MUSE GHP QRS Duration 90 ms MUSE GHP QT 374 ms MUSE GHP QTC 467 ms MUSE GHP P [place] 51 degrees MUSE GHP R [place] 38 degrees MUSE GHP T [place] 47 degrees MUSE GHP 03/13/2024 7:03 PM CUPROUS CHLORIDE HELPER Narrative MUSE GHP - 03/13/2024 8:45 PM CUPROUS CHLORIDE HELPER Sinus rhythm Normal ECG No previous ECGs available Confirmed by Gokul Dozier ([id number]) on 03/13/2024 8:45:20 PM Procedure Note Gokul Dozeir MD - 03/13/2024 Sinus rhythm Normal ECG No previous ECGs available Confirmed by Gokul Dozier ([id number]) on 03/13/2024 8:45:20 PM Amy Blank PA-C PN ECG ORDERABLES Performing Organization Address City/State/[facility] Co de Phone Number [facility] [address] [place] [address] documented in this encounter Visit Diagnoses Diagnosis Chest pressure Other chest pain documented in this encounter Care Teams Mate Fourth Relationship Specialty Start Date End Date Found, No PcpMD [address] [place] [address] PCP - General 07/05/23 documented as of this encounter
--- OUTSIDE RECORDS SUMMARY | 2024-04-25 15:37 | XMS_ITS | Encounter Summary ---
Author Organization [facility] Address [address], [place] [address] Care Team Providers Care Olive Packer Name Role Phone Found, No Pcp Primary [...] on filedocumented in this encounter Care Teams Olive Packer Relationship Specialty Start Date End Date Found, No Pcp, [address] [place] [address] PCP - General 07/05/23 documented as of this encounter
--- OUTSIDE RECORDS SUMMARY | 2024-04-25 15:37 | XMS_ITS | Clinical Summary ---
Author Organization [facility] Address [place], [place] [address] Care Team Providers Care Biofuels Product Manager Name Role Phone Joann Brown DO Primary Care Provider Allergies No known active allergies Medications miscellaneous medical supply miscIndications:Foot pain, bilateral,Heel pain, bilateral,Diabetes mellitus type 2, uncontrolled, without complications As directed. Orthotic foot inserts - 1 pair 1 Each 2018 Active lancets (Accu-Chek Softclix Lancets)Indications:Ty pe 2 diabetes mellitus without complication, without long-term current use of insulin (HC) TEST DAILY 100 Each 3 2020 Active blood-glucose meterIndications:Uncon trolled type 2 diabetes mellitus with hyperglycemia (HC) Dispense meter, test strips, lancets covered by pt ins. E11.9 NIDDM type II - Test 1 time/day 1 Each 2020 Active blood sugar diagnostic (FreeStyle Test) stripIndications:Uncon trolled type 2 diabetes mellitus with hyperglycemia (HC) Dispense item covered by pt ins. E11.9 NIDDM type II - Test 1 time/day 100 Each 3 2020 Active semaglutide (Rybelsus) 14 mg tabletIndications:Type 2 diabetes mellitus without complication, without long-term current use of insulin (HC) Take 14 mg by mouth once daily before a meal. 30 Tablet 11 2023 Active metFORMIN (GLUCOPHAGE XR) 750 mg Extended-Release tabletIndications:Type 2 diabetes mellitus without complication, without long-term current use of insulin (HC) Take 1 Tablet (750 mg) by mouth once daily. 90 Tablet 3 2023 Active pantoprazole (PROTONIX) 40 mg delayed-release tabletIndications:Katrina roesophageal reflux disease, unspecified whether esophagitis present Take 1 Tablet (40 mg) by mouth once daily. 90 Tablet 3 2023 Active lisinopriL (PRINIVIL; ZESTRIL) 40 mg tabletIndications:Esse ntial hypertension Take 1 Tablet (40 mg) by mouth once daily. 90 Tablet 3 2023 Active levothyroxine (SYNTHROID) 125 mcg tabletIndications:Hypo thyroidism, unspecified type Take 1 Tablet (125 mcg) by mouth before breakfast. 90 Tablet 3 2023 Active metoprolol tartrate (LOPRESSOR) 100 mg tabletIndications:Esse ntial hypertension Take 1 Tablet (100 mg) by mouth two times daily. 180 Tablet 3 2023 Active celecoxib (CELEBREX) 200 mg capsuleIndications:Ost eoarthritis, unspecified osteoarthritis type, unspecified site Use once daily as needed for pain 90 Capsule 3 2023 Active nitrofurantoin macrocrystals/monohydr ate (Macrobid) 100 mg capsuleIndications:Rec urrent UTI Take 1 Capsule (100 mg) by mouth every 12 hours. Use dose before intercourse and dose after intercourse 12 hours after first dose 60 Capsule 2023 Active nystatin powder (Nystop) powderIndications:Yeas t infection of the skin Apply topically to affected area(s) one time if needed (Topical yeast infection). 15 g 3 2023 Active rosuvastatin (CRESTOR) 10 mg tabletIndications:Pure hypercholesterolemia Take 1 Tablet (10 mg) by mouth at bedtime. 90 Tablet 3 2023 Active Eliquis 5 mg tabletIndications:New onset atrial fibrillation (HC) Take 1 Tablet (5 mg) by mouth two times daily. 180 Tablet 3 2023 Active CPAPIndications:Obstru ctive sleep apnea RESMED CPAP (E0601) machine for home use at pressure: 5-15cmw, Choice of mask (A7030 or A7034) w/full face cushion (A7031) x1/mo, nasal cushion (A7032) x2/mo, or nasal pillows (A7033) x 2/mo; Length of Need: 99 months; Frequency of use: Daily 1 Each 11 2023 Active LORazepam 1 mg tabletIndications:Inso mnia, idiopathic Take 1 Tablet (1 mg) by mouth at bedtime if needed for Anxiety or Sleep. 15 Tablet 2023 Active hydroCHLOROthiazide 12.5 mg capsuleIndications:Ess ential hypertension Take 1 Capsule (12.5 mg) by mouth once daily. 90 Capsule 4 2024 Active clobetasol (TEMOVATE) 0.05 % creamIndications:[place] titis APPLY TOPICALLY TO THE AFFECTED AREA DAILY NEEDED 30 g 1 2024 Active dilTIAZem CD (CARDIZEM CD) 120 mg extended release 24 hr capsuleIndications:New onset atrial fibrillation (HC),Essential hypertension Take 1 Capsule (120 mg) by mouth once daily. 90 Capsule 3 03/28 Discontinued( *Medication adjustment) clobetasol (TEMOVATE) 0.05 % creamIndications:[place] titis APPLY TPICALLY TO THE AFFECTED AREA DAILY NEEDED 30 g 1 04/12 Discontinued Active Problems Problem Noted Date Diagnosed [...] Encounters Date Type Department Care Team Description 04/21/2024 Travel 04/11/2024 Refill [facility] [address] [place] [address] Joann Brown, DO Refill Request (Clobetasol) 03/28/2024 3:00 PM PUMP SERVICER SUPERVISOR Office Visit [facility] [address] [place] [id number] Gatito Maynard MD Follow Up (6 month follow up Atrial fibrillation /Echo 09/08/23) 03/28/2024 Travel 03/25/2024 Travel 03/13/2024 Refill [facility] [address] [place] [address] Joann Brown, DO Refill Request (Lorazepam) 03/13/2024 Refill [facility] [address] [place] [address] Joann Brown, DO Refill Request (LORazepam (ATIVAN) 1 mg tablet 15 Tablet) 02/11/2024 Refill [facility] [address] [place] [address] Joann Brown, DO Refill Request (Clobetasol) 02/09/2024 [facility]ill [facility] [address] [place] [address] Joann Brown, DO Refill Request (Clobetasol) from Last 3 Months Immunizations Name Administration [...] Given: Yes Alcohol Use Standard Drinks/Week Comments Yes 0 (1 standard drink = 0.6 oz pur e alcohol) a couple times a year PHQ-2 Answer Date Recorded PHQ-2 TOTAL SCORE 0 05/19/2021 Social Connections Answer Date Recorded Do you often feel lonely or isolated from those around you? 0 04/21/2024 Financial Resource Strain Answer Date R ecorded Difficulty of Paying Living Expenses 3 04/21/2024 Difficulty of Paying Living Expenses Not on file 04/21/2024 Food Insecurity Answer Date Recorded Do you worry your food will run out before you are able to buy more? 1 04/21/2024 Transportation Needs Answer Date Record ed Does lack of transportation keep you from medica l appointments? 1 04/21/2024 Does lack of transportation keep you from work, meetings or getting things that you need? 1 04/21/2024 Housing Stability Answer Date Recorded What is your housing situation today? 1 04/21/2024 Utilities Answer Date Recorded Do you have trouble paying f or utilities (for example, heat, electricity, water, phone)? 1 04/21/2024 Comments No Sex and Gender Information Value Date Recorded Sex Assigned at Not on file Legal Sex Female 5:45 AM PUMP SERVICER SUPERVISOR Gender Identity Not on file Sexual Orientation Not on file Occupation Industry Job Start Date Job End Date Not on file Not on file Not on file Not on file Obstetrics History Para Term AB IAB SAB Ectopic Multiple Livin g Live Births 2 2 2 0 0 0 0 0 2 Date Outcome GA Total Labor Labor/2nd/3rd Weight Sex Type Anes PTL Arianna A1 A5 Name Clin Term Term Last Filed Vital Signs Vital Sign Reading Time Taken Comments Blood Pressure 152/88 03/28/2024 3:05 PM PUMP SERVICER SUPERVISOR Pulse 89 03/28/2024 3:05 PM PUMP SERVICER SUPERVISOR Temperature 36.7 C (98.1 F) 09/27/2021 12:06 PM CDT Respiratory Rate 20 10/29/2021 2:30 PM CDT Oxygen Saturation 97% 03/28/2024 3:05 PM PUMP SERVICER SUPERVISOR Inhaled Oxygen Concentration - - Weight 149.2 kg (329 lb) 03/28/2024 3:05 PM PUMP SERVICER SUPERVISOR Height 172.7 cm (5' 8) 09/10/2023 8:29 AM CDT Body Mass Index 50.02 09/10/2023 8:29 AM CDT Plan of Treatment Upcoming Encounters Date Type Department Care Team (Late st Contact Info) Description 04/26/2024 3:25 PM PUMP SERVICER SUPERVISOR Office Visit [facility] [address] [place] [address] Joann Brown DO [address] [place] [address] Health Maintenance Due Date Last Done Comments Mammogram for age 45-75 10/03/2021 10/04/19, 10/03/2019, 06/03/2018, Additional history exists Depression screening for age 12+ 05/19/2022 05/19/2021, 04/15/2020, 07/24/2019, Additional history exists COVID-19 vaccine series (2023- season) 2023 01/22/2023, 05/07/2022, 07/10/2021, Additional history exists Influenza for age 50-64 11/21/2023 01/23/20 23, 12/17/2021, 12/18/2020, Additional history exists RSV vaccine for adults or (1 - Risk 60-74 years 1-dose series) 2024 BMI (ht and wt on same day) [...] Completed 05/19/2021, 03/30/2019 Pneumococcal series for age 50+ Completed 07/13/2022, 03/30/2019, 06/11/2000 Tdap Completed 07/13/2022, 05/2011, 02/14/2007 HIV for age 15-65 Completed 09/01/2023 Procedures Procedure Name Priority Date/Time Associated Diagnosis Comments ANTI HIV 1/2 Routine 09/01/2023 3:17 PM CDT Screening for HIV (human immunodeficiency virus) LIPID PANEL W REFLEX MEASURED LDL Routine 09/01/2023 3:17 PM CDT Pure hypercholesterolemia SCAN-MAMMOGRAPHY REPORT 10/03/2020 12:00 AM CDT WATCHER LOOKOUT TOWER THIN PREP PAP SCREEN IMAGED Routine 04/15/2020 8:45 AM PUMP SERVICER SUPERVISOR Pap smear for cervical cancer screening ANTI HCV Routine 03/30/2019 12:27 PM PUMP SERVICER SUPERVISOR Need for hepatitis C screening test SCAN-COLONOSCOPY 12/30/2015 12:0 0 AM CDT from Last 3 Months or Most Recently Relevant to Health Maintenance Results * (ABNORMAL) LIPID PANEL W REFLEX MEASURED LDL (09/01/2023 3:17 PM CDT) CHOLESTEROL,TOTAL 264(H) 100 - 199 mg/dL 09/01/2023 11:47 PM CDT [facility] Comment: Cholesterol, Total Reference Ranges Desirable <200 mg/dL Borderline 200-239 mg/dL High >=240 mg/dL TRIGLYCERIDES 156(H) <150 mg/dL 09/01/2023 11:47 PM CDT [facility] HDL CHOLESTEROL 73 >40 mg/dL 11:47 PM CDT [facility] NON-HDL CHOLESTEROL 191(H) <145 mg/dl 09/01/2023 11:47 PM CDT [facility] CHOL/HDL RATIO 3.62 <4.50 09/01/2023 11:47 PM CDT [facility] LDL CHOLESTEROL 160(H) <=130 mg/dL 09/01/2023 11:47 PM CDT [facility] VLDL CHOLESTEROL 31(H) <=30 mg/dL 09/01/2023 11:47 PM CDT [facility] PROVIDER ORDERED STATUS RANDOM 09/01/2023 11:47 PM CDT [facility] Blood BLOOD SPECIMEN / Unknown Venipuncture / Unknown 09/01/2023 3:17 PM CDT 09/01/2023 3:19 PM CDT us Joann Brown DO CHEMISTRY Final Result Performing Organization Address City/[facility]/ZIP Co de Phone Number [facility] [address] [place] [address], [place] * ANTI HIV 1/2 [57119.0] (09/01/2023 3:17 PM CDT) HIV-1/HIV-2 SCREEN Non-Reacti ve Non-Reacti ve 09/01/2023 11:34 PM CDT [facility] Comment:HIV-1 p24 and HIV-1/ HIV-2 Ab Not Detected. Blood BLOOD SPECIMEN / Unknown Venipuncture / Unknown 09/01/2023 3:17 PM CDT 09/01/2023 3:19 PM CDT us Joann Arianna Kennlucio PEREA SEND OUTS Final Result Performing Organization Address [facility] Co de Phone Number [facility] [address] [place] [address], [place] * SCAN-MAMMOGRAPHY REPORT (10/03/2020 12:00 AM CDT) Anatomical Region Laterality Modality Other us Scanner OTHER Final Result * WATCHER LOOKOUT TOWER THIN PREP PAP SCREEN IMAGED [[id number]] (04/15/2020 8:45 AM PUMP SERVICER SUPERVISOR) Case Report Gynecologic Cytology Report Case: [id number] Authorizing Provider: Sherrie Doyle MD Collected: 04/15/2020 0845 Ordering Location: [facility] Received: 04/15/2020 1020 Clinic First Screen: Giselle Alexandra Specimen: WATCHER LOOKOUT TOWER ThinPrep Vial Screening, Cervical 04/23/2020 2:58 PM PUMP SERVICER SUPERVISOR [facility] [employer] [facility] INTERPRETATION/ RESULT NEGATIVE FOR INTRAEPITHELIAL LESION OR MALIGNANCY (NIL) (none) 04/23/2020 2:58 PM PUMP SERVICER SUPERVISOR [facility] IMEN ADEQUACY Satisfactory for evaluation Endocervical component present 04/23/2020 2:58 PM PUMP SERVICER SUPERVISOR [facility] [employer] [facility] HPV REQUEST HPV and PAP 04/23/2020 2:58 PM PUMP SERVICER SUPERVISOR [facility] Date of LMP uncertain 04/23/2020 2:58 PM PUMP SERVICER SUPERVISOR [facility] Last Pap Date 03/18/17 04/23/2020 2:58 PM PUMP SERVICER SUPERVISOR [facility] Last Pap Result NIL 2:58 PM PUMP SERVICER SUPERVISOR [facility] Abnormal Pap or [place] Bx in last 5 years No 04/23/2020 2:58 PM PUMP SERVICER SUPERVISOR [facility] Menstrual Status Postmenopausal 04/23/2020 2:58 PM PUMP SERVICER SUPERVISOR [facility] Endicott Bx Done Today No 04/23/2020 2:58 PM PUMP SERVICER SUPERVISOR [facility] Additional Information None given 04/23/2020 2:58 PM PUMP SERVICER SUPERVISOR [facility] Comment: Cytology is screened at [facility] - [address], [place] [address] and [facility] - [address] [place] [address] and [facility] - [address] [place] [address] Interpreted at [facility] - [address], [place] [address] Automated Review Successful 04/23/2020 2:58 PM PUMP SERVICER SUPERVISOR [facility] Comment:Specimen processed s uccessfully by automated field handyman device, ThinPrep Imaging System, [employer] ANCILLARY TESTING WATCHER LOOKOUT TOWER HPV Ordered, Please see separate report 04/23/2020 2:58 PM PUMP SERVICER SUPERVISOR [facility] Note The pap test [...] pre-malignant and malignant lesions. 04/23/2020 2:58 PM PUMP SERVICER SUPERVISOR [facility] Other (Cervical) Non-Blood / Unknown 04/15/2020 8:45 AM PUMP SERVICER SUPERVISOR 04/15/2020 10:20 AM PUMP SERVICER SUPERVISOR us Sherrie Doyle MD PATHOLOGY/CYTOLOGY Final Resu lt [facility] [address] [place] [address], [place] * ANTI HCV (03/30/2019 12:27 PM PUMP SERVICER SUPERVISOR) HEPATITIS C ANTIBODY Non-React chiquita Non-React chiquita 03/30/2019 7:09 PM PUMP SERVICER SUPERVISOR [facility] Comment:Antibodies to HCV no t detected; does not exclude the possibility of exposure to HCV. Blood BLOOD SPECIMEN / Unknown Butterfly / Unknown 03/30/2019 12:27 PM PUMP SERVICER SUPERVISOR 03/30/2019 12:27 PM PUMP SERVICER SUPERVISOR us Sherrie Doyle MD SEND OUTS Final Result Performing Organization Address [facility]/ZIP Co de Phone Number [facility] [address] [place] [address], [place] * SCAN-COLONOSCOPY (12/30/2015 12:00 AM CDT) us Scanner OTHER Final Result from Last 3 Months or Most Recently Relevant to Health Maintenance Insurance [facility] [employer] on file Care Teams Biofuels Product Manager Relationship Specialty Start Date End Date [place] [address] [address] PCP - General Family Practice 07/13/22
--- OUTSIDE RECORDS SUMMARY | 2024-04-25 15:37 | XMS_ITS | Encounter Summary ---
Author Organization [facility] Address [address] [place] [address] Care Team Providers Care Lead Electrician Name Role Phone Found, No Pcp Primary Care Provider Unavailab le Encounter Details Date Type Department Care Team (Latest Contact Info) Description 08/12/1996 Orders Only Joshua Vázquez [place] [address] [place] [address] Social History Tobacco Use Types Packs/Day Years Used Date Smoking Tobacco: Never Assessed Sex and Gender Information Value Date Recorded Sex Assigned at Not on file Gender Identity Not on file Sexual Orientation Not on file documented as of this encounter Plan of Treatment Not on file documented as of this encounter Visit Diagnoses Not on filedocumented in this encounter Care Teams Lead Electrician Relationship Specialty Start Date End Date Found, No Pcp, [address] [place] [address] PCP - General 07/05/23 documented as of this encounter
--- OUTSIDE RECORDS SUMMARY | 2024-04-25 15:38 | XMS_ITS | Encounter Summary ---
Author Organization [facility] Address [address], [place] [address] Care Team Providers Care Obstetrics Nurse Name Role Phone Found, No Pcp [...] on filedocumented in this encounter Care Teams Obstetrics Nurse Relationship Specialty Start Date End Date Found, No Pcp, [address] [place] [address] PCP - General 07/05/23 documented as of this encounter
--- OUTSIDE RECORDS SUMMARY | 2024-04-25 15:38 | XMS_ITS | Encounter Summary ---
Author Organization [facility] Address [address], [place] [address] Care Team Providers Care Fire Extinguisher Mechanic Name Role Phone Found, No Pcp [...] filedocumented in this encounter Care Teams Fire Extinguisher Mechanic Relationship Specialty Start Date End Date Found, No Pcp, [address] [place] [address] PCP - General 07/05/23 documented as of this encounter
--- OUTSIDE RECORDS SUMMARY | 2024-04-25 15:38 | XMS_ITS | Encounter Summary ---
Author Organization [facility] Address [address] [address] Care Team Providers Care Network Engineering Advisor Name Role Phone Found, No Pcp Primary [...] on filedocumented in this encounter Care Teams Network Engineering Advisor Relationship Specialty Start Date End Date Found, No Pcp, [address] [place] [address] PCP - General 07/05/23 documented as of this encounter
--- OUTSIDE RECORDS SUMMARY | 2024-04-25 15:38 | XMS_ITS | Encounter Summary ---
Author Organization [facility] Address [address], [place] [address] Care Team Providers Care Shearer Operator Name Role Phone Found, No Pcp [...] on filedocumented in this encounter Care Teams Shearer Operator Relationship Specialty Start Date End Date Found, No Pcp, [address] [place] [address] PCP - General 07/05/23 documented as of this encounter
--- OUTSIDE RECORDS SUMMARY | 2024-04-25 15:38 | XMS_ITS | Encounter Summary ---
Author Organization [facility] Address [address], [place] [address] Care Team Providers Care Cook Vacuum Kettle Name Role Phone Found, No Pcp Primary [...] on filedocumented in this encounter Care Teams Cook Vacuum Kettle Relationship Specialty Start Date End Date Found, No Pcp, [address] [place] [address] PCP - General 07/05/23 documented as of this encounter
--- OUTSIDE RECORDS SUMMARY | 2024-04-25 15:38 | XMS_ITS | Encounter Summary ---
Author Organization [facility] Address [address], [place] [address] Care Team Providers Care Educational Psychology Teacher Name Role Phone Found, No Pcp [...] on filedocumented in this encounter Care Teams Educational Psychology Teacher Relationship Specialty Start Date End Date Found, No Pcp, [address] [place] [address] PCP - General 07/05/23 documented as of this encounter
--- OUTSIDE RECORDS SUMMARY | 2024-04-25 15:38 | XMS_ITS | Encounter Summary ---
Author Organization [facility] Address [address], [place] [address] Care Team Providers Care Framing Mechanic Name Role Phone Found, No Pcp [...] on filedocumented in this encounter Care Teams Framing Mechanic Relationship Specialty Start Date End Date Found, No Pcp, [address] [place] [address] PCP - General 07/05/23 documented as of this encounter
--- OUTSIDE RECORDS SUMMARY | 2024-04-25 15:38 | XMS_ITS | Encounter Summary ---
Author Organization [facility] Address [address] [place] [address] Care Team Providers Care Graphite Pan Drier Tender Name Role Phone Found, No Pcp Primary Care Provider Unavailab le Encounter Details Date Type Department Care Team (Latest Contact Info) Description 01/15/1996 Orders Only Jarod Cooper MD [address] [place] [id number] Social History Tobacco Use Types Packs/Day Years Used Date Smoking Tobacco: Never Assessed Sex and Gender Information Value Date Recorded Sex Assigned at Not on file Gender Identity Not on file Sexual Orientation Not on file documented as of this encounter Plan of Treatment Not on file documented as of this encounter Visit Diagnoses Not on filedocumented in this encounter Care Teams Graphite Pan Drier Tender Relationship Specialty Start Date End Date Found, No PcpMD [address] [place] [address] PCP - General 07/05/23 documented as of this encounter
--- OUTSIDE RECORDS SUMMARY | 2024-04-25 15:38 | XMS_ITS | Encounter Summary ---
Author Organization [facility] Address [address] [address] Care Team Providers Care Pig Machine Operator Name Role Phone Found, No [...] filedocumented in this encounter Care Teams Pig Machine Operator Relationship Specialty Start Date End Date Found, No Pcp, [address] [place] [address] PCP - General 07/05/23 documented as of this encounter
--- OUTSIDE RECORDS SUMMARY | 2024-04-25 15:38 | XMS_ITS | Encounter Summary ---
Author Organization [facility] Address [address] [place] [address] Care Team Providers Care Boat Designer Name Role Phone Found, No Pcp Primary Care Provider Unavailab le Encounter Details Date Type Department Care Team (Late st Contact Info) Description 06/05/1995 Orders Only [facility] Scott Pedroza MD [address] [address] Social History Tobacco Use Types Packs/Day Years Used Date Smoking Tobacco: Never Assessed Sex and Gender Information Value Date Recorded Sex Assigned at Not on file Gender Identity Not on file Sexual Orientation Not on file documented as of this encounter Plan of Treatment Not on file documented as of this encounter Visit Diagnoses Not on filedocumented in this encounter Care Teams Boat Designer Relationship Specialty Start Date End Date Found, No Pcp, [address] [place] [address] PCP - General 07/05/23 documented as of this encounter
--- OUTSIDE RECORDS SUMMARY | 2024-04-25 15:38 | XMS_ITS | Clinical Summary ---
[facility] Address [address] [place] [address] Care Team Providers Care Charge Machine Operator Name Role Phone Found, No Pcp MD Primary Care Provider Unavailab le Source Comments You are receiving this document as you are listed as the primary care provider,follow-up provider, or the patient has been referred to you for consultation.This is in compliance with the Medicare and[facility] Hospital[facility] EHR Incentive Program,which states Providers who transition their patient to another setting of careor provider of care or refers their patient to another provider of care shouldprovide summary care record for each transition of care or referral. [facility] Allergies No known active allergies Medications [...] as needed. 30 Tablet 1 01/31/2023 Active Additional Information Patient not taking.Reported on 03/13/2024 ELIQUIS 5 MG tablet Take 1 Tablet (5 mg) by mouth two times a day. Active dilTIAZem CD (CARDIZEM CD) 120 MG 24 hour release capsule Take 1 Capsule (120 mg) by mouth daily. 02/29/2024 Active LORazepam (ATIVAN) 1 MG tablet Take 1 Tablet (1 mg) by mouth daily as needed. Active Encounters Date Type Department Care Team Description 03/13/2024 7:00 PM PLANT AND EQUIPMENT WORKER Office Visit [facility] [address] [place] [address] Amy Blank PA-C Chest pressure from Last 3 Months Immunizations Name Administration [...] Comments Blood Pressure 148/79 03/13/2024 6:57 PM PLANT AND EQUIPMENT WORKER Pulse 98 03/13/2024 6:57 PM PLANT AND EQUIPMENT WORKER Temperature 36.8 C (98.3 F) 03/13/2024 6:57 PM PLANT AND EQUIPMENT WORKER Respiratory Rate 18 03/13/2024 6:57 PM PLANT AND EQUIPMENT WORKER Oxygen Saturation - - Inhaled Oxygen Concentration - - Weight 156.5 kg (345 lb) 05/14/2023 10:00 AM PLANT AND EQUIPMENT WORKER Height 175.3 cm (5' 9) 05/14/2023 10:00 AM PLANT AND EQUIPMENT WORKER Body Mass Index 50.95 05/14/2023 10:00 AM PLANT AND EQUIPMENT WORKER Plan of Treatment Health Maintenance Due Date Last Done Comments Cervical Cancer Screening Due 1965 Colon Cancer Screening Plan Due 1965 Hep C Screening (Preventive Services) 1965 Mammogram 1965 Adult Preventive Visit 01/16/1999 01/16/1998 Cholesterol 2009 01/16/1998 COVID-19 Vaccine ( season) 2023 01/22/2023, 05/07/2022, 07/10/2021, Additional history exists Influenza (#1) 2023 01/22/2023, 11/21, 12/18/2020, Additional history exists RSV (1 - Risk 60-74 years 1-dose series) 2024 Diabetes Screening- (based on age and BMI) 08/31/2026 09/01/2023, 02/10/2023, 11/09/2022, Additional history exists DTaP/Tdap/Td (5 - Tdap) 07/13/2032 07/14/19, 01/02/2012, 12/23/2011, Additional history exists Zoster/Shingles Completed 05/19/2021, 03/30/2019 Pneumococcal Aged Out 07/13/2022, 11/2019, 06/11/2000 No longer eligible based on patient's age to complete this topic HIV Screening (Preventive Services) Completed 09/01/2023 HepA Aged Out No longer eligi ble based on patient's age to complete this topic HepB Aged Out No longer eligi ble based [...] 12 LEAD OUTPATIENT STAT 03/13/2024 7:03 PM PLANT AND EQUIPMENT WORKER Chest pressure CHOLESTEROL (TOTAL) Routine 01/16/1998 1 1:49 AM PLANT AND EQUIPMENT WORKER from Last 3 Months or Most Recently Relevant to Health Maintenance Results * ECG 12-LEAD ROUTINE (Non Lab to perform-Today)-STAT (03/13/2024 7:03 PM PLANT AND EQUIPMENT WORKER) Ventricular Rate 94 BPM [facility]USE [facility] Atrial Rate 94 BPM [facility] P-R Interval 156 ms [facility] QRS Duration 90 ms MUSE [facility] QT 374 ms MUSE [facility] QTC 467 ms MUSE [facility] P [place] 51 degrees MUSE [facility] R [place] 38 degrees MUSE GHP T [place] 47 degrees MUSE GHP 03/13/2024 7:03 PM PLANT AND EQUIPMENT WORKER Narrative MUSE [facility] - 03/13/2024 8:45 PM PLANT AND EQUIPMENT WORKER Sinus rhythm Normal ECG No previous ECGs available Confirmed by Gokul Dozier ([id number]) on 03/13/2024 8:45:20 PM Procedure Note Gokul Dozier MD - 03/13/2024 Sinus rhythm Normal ECG No previous ECGs available Confirmed by Gokul Dozier ([id number]) on 03/13/2024 8:45:20 PM Amy Blank PA-C PN ECG ORDERABLES Performing Organization Address [facility] Co de Phone Number [facility] [address] [place] [address] * (ABNORMAL) CHOLESTEROL (TOTAL) (01/16/1998 11:49 AM PLANT AND EQUIPMENT WORKER) Cholesterol 238(H) <200 mg/dl [facility] [employer] Cholesterol Result should not be interpreted without the patient's history of cardiovascular risk factors. [employer] 01/16/1998 11:4 9 AM PLANT AND EQUIPMENT WORKER 01/16/1998 11:50 AM PLANT AND EQUIPMENT WORKER Emilio Dewey MD LAB_1 Performing Organization Address City[facility]/ZIP Co de Phone Number [employer] [address] [phone] from Last 3 Months or Most Recently Relevant to Health Maintenance Care Teams Charge Machine Operator Relationship Specialty Start Date End Date Found, No Pcp, [address] [place] [address] PCP - General 07/05/23
--- OUTSIDE RECORDS SUMMARY | 2024-04-25 15:38 | XMS_ITS | Encounter Summary ---
Author Organization [facility] Address [address] [address] Care Team Providers Care Stone Gang Sawyer Name Role Phone Found, No Pcp Primary [...] on filedocumented in this encounter Care Teams Stone Gang Sawyer Relationship Specialty Start Date End Date Found, No Pcp, [address] [place] [address] PCP - General 07/05/23 documented as of this encounter
--- OUTSIDE RECORDS SUMMARY | 2024-04-25 15:38 | XMS_ITS | Encounter Summary ---
Author Organization [facility] Address [address] [address] Care Team Providers Care Farm Tractor Operator Name Role Phone Found, No Pcp [...] filedocumented in this encounter Care Teams Farm Tractor Operator Relationship Specialty Start Date End Date Found, No Pcp, [address] [place] [address] PCP - General 07/05/23 documented as of this encounter
--- OUTSIDE RECORDS SUMMARY | 2024-04-25 15:38 | XMS_ITS | Encounter Summary ---
Author Organization [facility] Address [address] [place] [address] Care Team Providers Care Combination Technician Name Role Phone Found, No Pcp Primary Care Provider Unavailab le Encounter Details Date Type Department Care Team (Latest Contact Info) Description 09/20/1995 Orders Only Kyree Coronado MD [address] [place], [place] [id number] Social History Tobacco Use Types Packs/Day Years Used Date Smoking Tobacco: Never Assessed Sex and Gender Information Value Date Recorded Sex Assigned at Not on file Gender Identity Not on file Sexual Orientation Not on file documented as of this encounter Plan of Treatment Not on file documented as of this encounter Visit Diagnoses Not on filedocumented in this encounter Care Teams Combination Technician Relationship Specialty Start Date End Date Found, No Pcp, [address] [place] [address] PCP - General 07/05/23 documented as of this encounter
--- OUTSIDE RECORDS SUMMARY | 2024-04-25 15:38 | XMS_ITS | Encounter Summary ---
Author Organization [facility] Address [address], [place] [address] Care Team Providers Care Data Architect Name Role Phone Found, No Pcp Primary Care Provider Unavailab le Encounter Details Date Type Department Care Team (Latest Contact Info) Description 07/02/1995 Orders Only [facility] [address] [facility], [address] Social History Tobacco Use Types Packs/Day Years Used Date Smoking Tobacco: Never Assessed Sex and Gender Information Value Date Recorded Sex Assigned at Not on file Gender Identity Not on file Sexual Orientation Not on file documented as of this encounter Plan of Treatment Not on file documented as of this encounter Visit Diagnoses Not on filedocumented in this encounter Care Teams Data Architect Relationship Specialty Start Date End Date Found, No Pcp, [address] [place] [address] PCP - General 07/05/23 documented as of this encounter
--- OUTSIDE RECORDS SUMMARY | 2024-04-25 15:38 | XMS_ITS | Encounter Summary ---
[facility] Address [address], [place] [address] Care Team Providers Care Cash Analyst Name Role Phone Found, No Pcp [...] on filedocumented in this encounter Care Teams Cash Analyst Relationship Specialty Start Date End Date Found, No Pcp, [address] [facility] [place] [address] PCP - General 07/05/23 documented as of this encounter
--- OUTSIDE RECORDS SUMMARY | 2024-04-25 15:38 | XMS_ITS | Encounter Summary ---
Author Organization [facility] Address [address] [address] Care Team Providers Care Savings Counselor Name Role Phone Found, No Pcp Primary [...] on filedocumented in this encounter Care Teams Savings Counselor Relationship Specialty Start Date End Date Found, No Pcp, [address] [place] [address] PCP - General 07/05/23 documented as of this encounter
[2024-04-25 15:50] VITALS: BP 130/85; PULSE 117; RESP 20; TEMP 36.9; O2SAT 97; BMI 48.0
[2024-04-25 16:42] LABS: PCR FLU A Negative PCR FLU A (Negative); PCR FLU B Negative PCR FLU B (Negative); PCR RSV Negative PCR RSV (Negative); SARS PCR* Negative SARS-CoV-2 (Negative)
--- NOTE | 2024-04-25 17:54 | ED_ITS ---
HPI - General Adult General Chief complaint: Fever Stated complaint: Cellulitis, fever, nausea, aches Time Seen by Provider: 04/25/24 17:31 History of Present Illness HPI narrative: Fever started today, has headache, achiness, feeling cold/ hot, nausea on/ off. Worried about cellulitis, a little redness on L lower leg and back. 59-year-old woman presenting to the emergency department with concern of fever today. Has measured 101 all day. She says she woke feeling like she might be having a panic attack. Some tightness in her chest. Took lorazepam. Still was feeling uncomfortable. Then chilled alternating with hot and cold. Nausea as well. No vomiting. Did notice some redness on her lower leg left leg and thought that maybe she is developing a cellulitis. She does have a decent headache as well. By the time I am seeing Ms. Millan she has been screened neg ative for COVID influenza and RSV. Related Data Home Medications ?Medication ?Instructions ?Recorded ?Confirmed blood sugar diagnostic (Contour #10 ea 12/15/21 04/03/24 Next Test Strips) blood-glucose meter (Contour Next #1 ea 12/15/21 04/03/24 Meter) lancets (Microlet Lancet) #100 12/15/21 04/03/24 levothyroxine 125 mcg tablet 125 mcg PO DAILY 12/15/21 04/03/24 lisinopril 40 mg tablet 40 mg PO DAILY 12/15/21 04/03/24 metoprolol tartrate 100 mg tablet 100 mg PO BID 12/15/21 04/03/24 metformin 750 mg tablet,extended 750 mg PO DAILY 11/03/22 04/03/24 release 24 hr celecoxib 200 mg capsule 200 mg PO DAILY PRN 09/21/23 04/03/24 diltiazem HCl 120 mg 120 mg PO DAILY 09/21/23 04/03/24 capsule,extended release 24 hr lorazepam 1 mg tablet 1 mg PO HS PRN 09/21/23 04/03/24 nitrofurantoin 100 mg PO Q12H PRN 09/21/23 04/03/24 monohydrate/macrocrystals 100 mg capsule (Macrobid) nystatin 100,000 unit/gram topical 1 applic topical DAILY PRN 09/21/23 04/03/24 powder (Nystop) pantoprazole 40 mg tablet,delayed 40 mg PO DAILY 09/21/23 04/03/24 release rosuvastatin 10 mg tablet 10 mg PO HS 09/21/23 04/03/24 semaglutide 14 mg tablet (Rybelsus) 14 mg PO DAILY 09/21/23 04/03/24 Previous Rx's ?Medication ?Instructions ?Recorded clobetasol 0.05 % topical cream 1 applic topical BID PRN itching 11/22/21 #15 grams apixaban 5 mg tablet 5 mg PO BID #60 tabs 08/09/23 Walker- 2 Wheels #1 ea 09/08/23 acetaminophen 500 mg capsule 500 - 1,000 mg (1 - 2 x 500 mg) PO 09/30/23 Q6H PRN pain #100 caps diazepam 5 mg tablet (Valium) 5 mg PO ONCE #2 tabs 12/03/23 Allergies Allergy/AdvReac Type Severity Reaction Status Date / Time No Known Drug Allergies Allergy Verified 04/25/24 15:55 Review of Systems Status of ROS: Reports: 6 or more systems reviewed and unremarkable except as noted in History and below [facility] Medical History Urinary tract infection, site not specified (02/14/07) ?N39.0 - Urinary tract infection, site not specified (ICD-10) Restless legs syndrome (RLS) (11/14/07) ?G25.81 - Restless legs syndrome (ICD-10) Pure hypercholesterolemia (02/14/07) ?E78.00 - Pure hypercholesterolemia, unspecified (ICD-10) Obesity (02/21/13) ?E66.9 - Obesity, unspecified (ICD-10) Obstructive sleep apnea ?G47.33 - Obstructive sleep apnea (adult) (pediatric) (ICD-10) Chronic osteoarthritis (10/04/12) ?M19.90 - Unspecified osteoarthritis, unspecified site (ICD-10) Gastroesophageal reflux (10/04/12) ?K21.9 - Gastro-esophageal reflux disease without esophagitis (ICD-10) Generalized anxiety disorder ?F41.1 - Generalized anxiety disorder (ICD-10) Hyperlipidemia (10/04/12) ?E78.5 - Hyperlipidemia, unspecified (ICD-10) Hypothyroidism (10/04/12) ?E03.9 - Hypothyroidism, unspecified (ICD-10) Primary hypertension (10/04/12) ?I10 - Essential (primary) hypertension (ICD-10) Type 2 diabetes mellitus ?E11.9 - Type 2 diabetes mellitus without complications (ICD-10) Dupuytren's contracture of left hand ?M72.0 - Palmar fascial fibromatosis [Dupuytren] (ICD-10) Left carpal tunnel syndrome ?G56.02 - Carpal tunnel syndrome, left upper limb (ICD-10) New onset atrial fibrillation (09/02/23) ?I48.91 - Unspecified atrial fibrillation (ICD-10) Surgical History Status post right knee replacement (09/30/23) ?Z96.651 - Presence of right artificial knee joint (ICD-10) Hx of cholecystectomy ?Z90.49 - Acquired absence of other specified parts of digestive tract (ICD- 10) H/O section ?Z98.891 - History of uterine scar from previous surgery (ICD-10) History of arthroscopy of right knee (11/07/08) ?Z98.890 - Other specified postprocedural states (ICD-10) History of hysteroscopy (01/26/11) ?Z98.890 - Other specified postprocedural states (ICD-10) History of arthroscopy of left shoulder (10/12/12) ?Z98.890 - Other specified postprocedural states (ICD-10) History of arthroscopy of left knee (05/17/14) ?Z98.890 - Other specified postprocedural states (ICD-10) History of arthroscopy of right shoulder (02/21/15) ?Z98.890 - Other specified postprocedural states (ICD-10) Family History Sister Atrial fibrillation Father Lung cancer High blood pressure Social History What is your current living situation?: I presently have a place to live Problems where you live: declined to answer In past 12 months, lack of transportation kept you from medical appts, meetings, work, or getting things needed for daily living: no In the past 12 mos, have been you worried that your food would run out before you had money to buy more?: never true In the past 12 mos, the food you bought just didn't last and you didn't have money to buy more?: never true Highest level of school completed/degree received: decline to answer Smoking Status: Never smoker Do you use any of these nicotine containing products: None Second hand tobacco smoke exposure: No How often do you have a drink containing alcohol: monthly or less Alcohol type: beer How many standard drinks containing alcohol do you have on a typical day: 1 or 2 How often do you have six or more drinks on one occasion: Never AUDIT-C Alcohol total score: 1 Non-prescribed substance use: denies use Caffeine: Yes How often does anyone, including family, friends and others, physically hurt you : never How often does anyone, including family, friends and others, insult or talk down to you: never How often does anyone, including family, friends and others, threaten you with harm: never How often does anyone, including family, friends and others, scream or curse at you: never service: No Exam Narrative: Exam Narrative: Pleasant. NAD. Does seem uncomfortable generally. Cranial nerves 2-12 to be intact. Lungs are clear. Heart in tachycardic rate and what appears to be regular rhythm. Abdomen is soft and nontender. Skin is warm and dry. Examination of the left dorsum of the foot shows some erythema diffusely contrary to the right. Tender here with mild calor. There is some suggestion of mild erythema in the anterior left lower leg as well. Const: Vital Signs, click to edit/add: Vital Signs - 24 hr 04/25/24 15:50 04/25/24 18:43 04/25/24 19:49 Temperature 98.5 F Pulse Rate [Left P ulse Oximeter] 117 H 121 H 113 H Respiratory Rate 20 20 20 Blood Pressure [Ri ght Upper Arm] 130/85 132/67 Pulse Oximetry 97 95 Oxygen Delivery Me thod Room Air Room Air Room Air Documenting provider has reviewed patient's vital signs: yes Course Vital Signs Vital signs: Initial Vital Signs Temperature 98.5 F 04/25/24 15:50 Temperature Source Oral 04/25/24 15:50 Pulse Rate 117 H 04/25/24 15:50 Respiratory Rate 20 04/25/24 15:50 Blood Pressure 130/85 04/25/24 15:50 Blood Pressure Mean 100 04/25/24 15:50 Blood Pressure Position Sitting 04/25/24 15:50 Pulse Oximetry 97 04/25/24 15:50 Oxygen Delivery Method Room Air 04/25/24 15:50 Vital Signs Temperature 98.5 F 04/25/24 15:50 Pulse Rate 117 H 04/25/24 15:50 Respiratory Rate 20 04/25/24 15:50 Blood Pressure 130/85 04/25/24 15:50 Pulse Oximetry 97 04/25/24 15:50 Oxygen Delivery Method Room Air 04/25/24 15:50 Temperature 98.5 F 04/25/24 15:50 Pulse Rate 113 H 04/25/24 19:49 Respiratory Rate 20 04/25/24 19:49 Blood Pressure 132/67 04/25/24 18:43 Pulse Oximetry 95 04/25/24 18:43 Oxygen Delivery Method Room Air 04/25/24 19:49 Medications Administered Medications: Discontinued Medications Generic Name Dose Route Start Last Admin Trade Name Freq PRN Reason Stop Dose Admin Sodium Chloride 1,000 mls @ 1,000 mls/hr 04/25/24 18:06 04/25/24 20:15 0.9 % Sodium Chloride 1000 Ml IV 04/25/24 19:05 0 mls/hr .Q1H ONE Infusion Ketorolac Tromethamine 30 mg 04/25/24 18:06 04/25/24 19:03 Ketorolac 30 Mg/Ml Inj IVP 04/25/24 18:07 30 mg ONCE ONE Administration Ondansetron HCl 4 mg 04/25/24 18:06 04/25/24 19:04 Ondansetron 2 Mg/Ml Inj IVP 04/25/24 18:07 4 mg ONCE ONE Administration Medical Decision Making MDM Narrative Medical decision making narrative: Considering community prevalence I would screen for COVID, influenza and RSV though this was ready done and negative. Certainly possible that this cellulitis is contributing to her symptoms. Otherwise probable other viral process. Is not noting any symptoms consistent with urinary tract infection. A difficult stick. Ultimately the line blew receiving about 100 mL of normal saline. Did receive Zofran and able to tolerate oral fluid ingestion. Had received her medications of ketorolac and Zofran though prior to line blowing. Labs are generally reassuring. White count is not elevated. CRP those little elevated 2.9. Blood culture was collected and pending. Urinalysis is essentially clear. On reassessment is mildly improved though still with headache and appreciate further treatment for this. Given 2 tabs of [place] after discussion of options. Will be treating for what appears to be in evolving cellulitis. Will be receiving g Rocephin IM. Discussed taking initial dosing of cephalexin later yet tonight. See patient discharge plan for further discussion Stay well-hydrated. Considering you are taking Eliquis, need to be cautious with ibuprofen. Normally would be up to 800 mg per dose. Can take up to 1000 mg of acetaminophen per dose. You received a shot of Rocephin here in the emergency department. Prescribing cephalexin from [facility] as antibiotic. Also Zofran for nausea from [facility]. A blood culture will be pending here. We will contact you if this is positive. Probably would be a good idea to see your primary care provider as planned tomorrow. Medical Records Medical records reviewed: Yes I reviewed the patient's medical records Lab Data Lab results reviewed: Yes I reviewed the patient's lab results Labs: Lab Results 04/25/24 04/25/24 04/25/24 Range/Units 16:00 18:06 18:09 WBC 9.78 (4.50-11.00) K/uL RBC 5.35 H (4.00-5.20) m/uL Hgb 12.8 (12.0-16.0) gm/dL Hct 41.5 (33.0-51.0) % MCV 78 L (80-100) fL MCH 24 L (26-34) pg MCHC 31 L (32-36) gm/dL RDW Coeff of [place] 15.5 (11.5-15.5) % Plt Count 251 (140-440) K/uL Neut % (Auto) 86.1 H (42.0-72.0) % Lymph % (Auto) 7.9 L (20-44) % [place] % (Auto) 5.5 (0.0-11.0) % Eos % (Auto) 0.2 (0.0-7.0) % Baso % (Auto) 0.1 (0.0-3.0) % Neut # (Auto) 8.40 H (1.7-7.0) K/uL Lymph # (Auto) 0.80 L (0.90-2.90) K/uL [place] # (Auto) 0.50 (0.00-0.90) K/UL Eos # (Auto) 0.02 (0.00-0.50) K/uL Baso # (Auto) 0.01 (0.00-0.30) K/uL Abs Immat Gran (auto) 0.02 (0.00-0.30) K/uL Imm/Tot Granulo (auto) 0.2 % Troponin I < 0.01 L (0.01-0.04) ng/mL C-Reactive Protein 2.9 H (0.5-1.0) mg/dL Urine Color (Yellow) Urine Appearance (Clear) Urine pH (5.0-8.5) Ur Specific [place] (1.000-1.030) Urine Protein (Negative) Urine Glucose (UA) (Negative) Urine Ketones (Negative) Urine Blood (Negative) Urine Nitrite (Negative) Urine Bilirubin (Negative) Urine Urobilinogen (0.2-1.0) Ur Leukocyte Esterase (Negative) Urine RBC (0-2) Urine WBC (0-5) Ur Squamous Epith Cells (None-Few) Uric Acid Crystals (None) Urine Bacteria (None) SARS-CoV-2 (PCR) Negative SARS-CoV-2 (Negative) Influenza Type A (PCR) Negative PCR FLU A (Negative) Influenza Type B (PCR) Negative PCR FLU B (Negative) RSV (PCR) Negative PCR RSV (Negative) 04/25/24 Range/Units 18:36 WBC (4.50-11.00) K/uL RBC (4.00-5.20) m/uL Hgb (12.0-16.0) gm/dL Hct (33.0-51.0) % MCV (80-100) fL MCH (26-34) pg MCHC (32-36) gm/dL RDW Coeff of [place] (11.5-15.5) % Plt Count (140-440) K/uL Neut % (Auto) (42.0-72.0) % Lymph % (Auto) (20-44) % [place] % (Auto) (0.0-11.0) % Eos % (Auto) (0.0-7.0) % Baso % (Auto) (0.0-3.0) % Neut # (Auto) (1.7-7.0) K/uL Lymph # (Auto) (0.90-2.90) K/uL [place] # (Auto) (0.00-0.90) K/UL Eos # (Auto) (0.00-0.50) K/uL Baso # (Auto) (0.00-0.30) K/uL Abs Immat Gran (auto) (0.00-0.30) K/uL Imm/Tot Granulo (auto) % Troponin I (0.01-0.04) ng/mL C-Reactive Protein (0.5-1.0) mg/dL Urine Color Dark yellow (Yellow) Urine Appearance Clear (Clear) Urine pH 6.0 (5.0-8.5) Ur Specific [place] 1.020 (1.000-1.030) Urine Protein Negative (Negative) Urine Glucose (UA) Negative (Negative) Urine Ketones Trace A (Negative) Urine Blood Negative (Negative) Urine Nitrite Negative (Negative) Urine Bilirubin Negative (Negative) Urine Urobilinogen 0.2 (0.2-1.0) Ur Leukocyte Esterase Negative (Negative) Urine RBC 0-2 (0-2) Urine WBC 0-2 (0-5) Ur Squamous Epith Cells None (None-Few) Uric Acid Crystals Few A (None) Urine Bacteria None (None) SARS-CoV-2 (PCR) (Negative) Influenza Type A (PCR) (Negative) Influenza Type B (PCR) (Negative) RSV (PCR) (Negative) Discharge Plan Discharge Clinical Impression: Cellulitis, Fever Patient Disposition: Home w/ Parent or Adult Condition: Improved Additional Instructions: Stay well-hydrated. Considering you are taking Eliquis, need to be cautious with ibuprofen. Normally would be up to 800 mg per dose. Can take up to 1000 mg of acetaminophen per dose. You received a shot of Rocephin here in the emergency department. Prescribing cephalexin from [facility] as antibiotic. Also Zofran for nausea from [facility]. A blood culture will be pending here. We will contact you if this is positive. Probably would be a good idea to see your primary care provider as planned tomorrow. Prescriptions: No Action metformin 750 mg tablet extended release 24 hr 750 mg PO DAILY diazepam [Valium] 5 mg tablet 5 mg PO ONCE Qty: 2 0RF Rx Instructions: Take 1 tablet half hour prior to MRI, may repeat 1x. metoprolol tartrate 100 mg tablet 100 mg PO BID lisinopril 40 mg tablet 40 mg PO DAILY levothyroxine 125 mcg tablet 125 mcg PO DAILY (DME) lancets [Microlet Lancet] Misc See Rx Instructions .ROUTE .MEDSUPPLY Qty: 100 Patient Comments: TEST DAILY Rx Instructions: As directed (DME) Contour Next Test Strips Strip See Rx Instructions .ROUTE .MEDSUPPLY Qty: 10 Patient Comments: TEST DAILY Rx Instructions: As directed (DME) blood-glucose meter [Contour Next Meter] Misc See Rx Instructions .ROUTE .MEDSUPPLY Qty: 1 Patient Comments: USE DIRECTED Rx Instructions: As directed acetaminophen 500 mg capsule 500 - 1,000 mg PO Q6H MDD 4000mg per day PRN (Reason: pain) Qty: 100 0RF apixaban 5 mg tablet 5 mg PO BID Qty: 60 0RF clobetasol 0.05 % cream 1 applic topical BID PRN (Reason: itching) Qty: 15 2RF (DME) Walker- 2 Wheels Misc See Rx Instructions .Route Qty: 1 0RF Rx Instructions: As directed pantoprazole 40 mg tablet,delayed release (DR/EC) 40 mg PO DAILY Rybelsus 14 mg tablet 14 mg PO DAILY Patient Comments: TAKE 1 TABLET BY MOUTH EVERY DAY BEFORE A MEAL celecoxib 200 mg capsule 200 mg PO DAILY PRN lorazepam 1 mg tablet 1 mg PO HS PRN nitrofurantoin monohyd/m-cryst [Macrobid] 100 mg capsule 100 mg PO Q12H PRN Rx Instructions: must administer with a meal/food Take 1 cap by mouth every 12 hours. Use dose before intercourse and dose after intercourse 12 hour after first dose. rosuvastatin 10 mg tablet 10 mg PO HS nystatin [Nystop] 100,000 unit/gram powder 1 applic topical DAILY PRN diltiazem HCl 120 mg capsule,extended release 24hr 120 mg PO DAILY Follow Up/Referrals: Joann Brown DO [Primary Care Provider] - Stand Alone Forms: [employer] Info Instructions
--- OUTSIDE RECORDS SUMMARY | 2024-04-25 18:11 | XMS_ITS | Encounter Summary ---
Author Organization [facility] Address [address], [place] [address] Care Team Providers Care Hvac Residential Service Technician Name Role Phone Found, No Pcp [...] on filedocumented in this encounter Care Teams Hvac Residential Service Technician Relationship Specialty Start Date End Date Found, No Pcp, [address] [place] [address] PCP - General 07/05/23 documented as of this encounter
--- OUTSIDE RECORDS SUMMARY | 2024-04-25 18:11 | XMS_ITS | Encounter Summary ---
Author Organization [facility] Address [address] [address] Care Team Providers Care Tooling Inspector Name Role Phone Found, No Pcp Primary Care Provider Unavailab le Encounter Details Date Type Department Care Team (Latest Contact Info) Description 05/27/1994 Orders Only Emilio Dweey MD Social History Tobacco Use Types Packs/Day Years Used Date Smoking Tobacco: Never Assessed Sex and Gender Information Value Date Recorded Sex Assigned at Not on file Gender Identity Not on file Sexual Orientation Not on file documented as of this encounter Plan of Treatment Not on file documented as of this encounter Visit Diagnoses Not on filedocumented in this encounter Care Teams Tooling Inspector Relationship Specialty Start Date End Date Found, No Pcp, [address] [place] [address] PCP - General 07/05/23 documented as of this encounter
--- OUTSIDE RECORDS SUMMARY | 2024-04-25 18:11 | XMS_ITS | Encounter Summary ---
Author Organization [facility] Address [address] [address] Care Team Providers Care Booth Usher Name Role Phone Found, No Pcp Primary [...] on filedocumented in this encounter Care Teams Booth Usher Relationship Specialty Start Date End Date Found, No Pcp, [address] [place] [address] PCP - General 07/05/23 documented as of this encounter
--- OUTSIDE RECORDS SUMMARY | 2024-04-25 18:11 | XMS_ITS | Encounter Summary ---
Author Organization [facility] Address [address] [place] [address] Care Team Providers Care Radiology Physician Name Role Phone Mp Brown DO Primary Care Provider [phone] Encounter Details Date Type Department Care Team (Latest Contact Info) Description 03/13/2024 Travel Social History Tobacco Use Types Packs/Day Years Used Date Smoking Tobacco: Never Assessed Adolescent Education Answer Date Record ed Getting School Help Needed Not on file 01/01 Comments No Sex and Gender Information Value Date Recorded Sex Assigned at Not on file Legal Sex Female 3:23 AM MASTIC MAN Gender Identity Not on file Sexual Orientation Not on file documented as of this encounter Plan of Treatment Not on file documented as of this encounter Visit Diagnoses Not on filedocumented in this encounter Care Teams Radiology Physician Relationship Specialty Start Date End Date Mp Brown DO [address] [place] [address] PCP - General 01/01/23 documented as of this encounter
--- OUTSIDE RECORDS SUMMARY | 2024-04-25 18:11 | XMS_ITS | Encounter Summary ---
Author Organization [facility] Address [address] [address] Care Team Providers Care Mechanical Systems Engineer Name Role Phone Found, No Pcp [...] on filedocumented in this encounter Care Teams Mechanical Systems Engineer Relationship Specialty Start Date End Date Found, No Pcp, [address] [place] [address] PCP - General 07/05/23 documented as of this encounter
--- OUTSIDE RECORDS SUMMARY | 2024-04-25 18:11 | XMS_ITS | Encounter Summary ---
Author Organization [facility] Address [address], [place] [address] Care Team Providers Care Paint Booth Operator Name Role Phone Found, No Pcp [...] on filedocumented in this encounter Care Teams Paint Booth Operator Relationship Specialty Start Date End Date Found, No Pcp, [address] [place] [address] PCP - General 07/05/23 documented as of this encounter
--- OUTSIDE RECORDS SUMMARY | 2024-04-25 18:11 | XMS_ITS | Encounter Summary ---
Author Organization [facility] Address [address] [address] Care Team Providers Care Concrete Panel Installer Name Role Phone Found, No Pcp [...] filedocumented in this encounter Care Teams Concrete Panel Installer Relationship Specialty Start Date End Date Found, No Pcp, [address] [place] [address] PCP - General 07/05/23 documented as of this encounter
--- OUTSIDE RECORDS SUMMARY | 2024-04-25 18:11 | XMS_ITS | Encounter Summary ---
Author Organization [facility] Address [address] [place] [address] Care Team Providers Care Structurer Name Role Phone Found, No Pcp Primary Care Provider Unavailab le Encounter Details Date Type Department Care Team (Latest Contact Info) Description 06/30/1997 Orders Only Kyree Coronado MD [address] [place], [place] [id number] Social History Tobacco Use Types Packs/Day Years Used Date Smoking Tobacco: Never Assessed Sex and Gender Information Value Date Recorded Sex Assigned at Not on file Gender Identity Not on file Sexual Orientation Not on file documented as of this encounter Plan of Treatment Not on file documented as of this encounter Visit Diagnoses Not on filedocumented in this encounter Care Teams Structurer Relationship Specialty Start Date End Date Found, No Pcp, [address] [place] [address] PCP - General 07/05/23 documented as of this encounter
--- OUTSIDE RECORDS SUMMARY | 2024-04-25 18:11 | XMS_ITS | Encounter Summary ---
[facility] Organization [facility] Address [address] [place] [address] Care Team Providers Care Bucket Pusher Name Role Phone Found, No Pcp Primary Care Provider Unavailab le Encounter Details Date Type Department Care Team (Latest Contact Info) Description 08/17/1996 Orders Only Paulina Villegas MD [address] [facility] [address] [place] [address] Social History Tobacco Use Types [...] on filedocumented in this encounter Care Teams Bucket Pusher Relationship Specialty Start Date End Date Found, No Pcp, [address] [place] [address] PCP - General 07/05/23 documented as of this encounter
--- OUTSIDE RECORDS SUMMARY | 2024-04-25 18:11 | XMS_ITS | Encounter Summary ---
Author Organization [facility] Address [address], [place] [address] Care Team Providers Care Metal Sash Setter Name Role Phone Found, No Pcp [...] filedocumented in this encounter Care Teams Metal Sash Setter Relationship Specialty Start Date End Date Found, No Pcp, [address] [place] [address] PCP - General 07/05/23 documented as of this encounter
--- OUTSIDE RECORDS SUMMARY | 2024-04-25 18:11 | XMS_ITS | Encounter Summary ---
Author Organization [facility] Address [address] [place] [address] Care Team Providers Care Mushroom Packer Name Role Phone Found, No Pcp Primary Care Provider Unavailab le Encounter Details Date Type Department Care Team (Latest Contact Info) Description 07/02/1994 [place] [address] [place] [address] Social History Tobacco Use Types [...] on filedocumented in this encounter Care Teams Mushroom Packer Relationship Specialty Start Date End Date Found, No Pcp, [address] [place] [address] PCP - General 07/05/23 documented as of this encounter
--- OUTSIDE RECORDS SUMMARY | 2024-04-25 18:11 | XMS_ITS | Encounter Summary ---
Author Organization [facility] Address [address], [place] [address] Care Team Providers Care Marketing Services Specialist Name Role Phone Found, No Pcp [...] filedocumented in this encounter Care Teams Marketing Services Specialist Relationship Specialty Start Date End Date Found, No Pcp, [address] [place] [address] PCP - General 07/05/23 documented as of this encounter
--- OUTSIDE RECORDS SUMMARY | 2024-04-25 18:11 | XMS_ITS | Encounter Summary ---
Author Organization [facility] Address [address] [place] [address] Care Team Providers Care Sill Worker Name Role Phone Found, No Pcp Primary Care Provider Unavailab le Encounter Details Date Type Department Care Team (Latest Contact Info) Description 06/12/1999 Orders Only Inés Lozada MD [address] [place] [address] Social History Tobacco Use Types Packs/Day Years Used Date Smoking Tobacco: Never Assessed Sex and Gender Information Value Date Recorded Sex Assigned at Not on file Gender Identity Not on file Sexual Orientation Not on file documented as of this encounter Plan of Treatment Not on file documented as of this encounter Visit Diagnoses Not on filedocumented in this encounter Care Teams Sill Worker Relationship Specialty Start Date End Date Found, No PcpMD [address] [place] [address] PCP - General 07/05/23 documented as of this encounter
--- OUTSIDE RECORDS SUMMARY | 2024-04-25 18:11 | XMS_ITS | Encounter Summary ---
Author Organization [facility] Address [address] [place] [address] Care Team Providers Care Drafter Apprentice Name Role Phone Found, No Pcp Primary Care Provider Unavailab le Encounter Details Date Type Department Care Team (Latest Contact Info) Description 06/02/1994 Orders Only Jarod Cooper MD [address] [place] [id number] Social History Tobacco Use Types Packs/Day Years Used Date Smoking Tobacco: Never Assessed Sex and Gender Information Value Date Recorded Sex Assigned at Not on file Gender Identity Not on file Sexual Orientation Not on file documented as of this encounter Plan of Treatment Not on file documented as of this encounter Visit Diagnoses Not on filedocumented in this encounter Care Teams Drafter Apprentice Relationship Specialty Start Date End Date Found, No PcpMD [address] [facility] [place] [address] PCP - General 07/05/23 documented as of this encounter
--- OUTSIDE RECORDS SUMMARY | 2024-04-25 18:11 | XMS_ITS | Encounter Summary ---
[facility] Organization [facility] Address [address], [place] [address] Care Team Providers Care Editor School Photograph Name Role Phone Found, No Pcp Primary [...] on filedocumented in this encounter Care Teams Editor School Photograph Relationship Specialty Start Date End Date Found, No Pcp, [address] [place] [address] PCP - General 07/05/23 documented as of this encounter
--- OUTSIDE RECORDS SUMMARY | 2024-04-25 18:11 | XMS_ITS | Encounter Summary ---
Author Organization [facility] Address [address], [place] [address] Care Team Providers Care Hose Mender Name Role Phone Found, No Pcp Primary [...] on filedocumented in this encounter Care Teams Hose Mender Relationship Specialty Start Date End Date Found, No Pcp, [address] [facility] [place] [address] PCP - General 07/05/23 documented as of this encounter
--- OUTSIDE RECORDS SUMMARY | 2024-04-25 18:11 | XMS_ITS | Encounter Summary ---
Author Organization [facility] Address [address] [place] [address] Care Team Providers Care Clinical Psychologist Licensed Name Role Phone Found, No Pcp Primary Care Provider Unavailab le Encounter Details Date Type Department Care Team (Latest Contact Info) Description 12/22/1997 Orders Only Nikhil Ceja MD [address] [place], [place] [address] Social History Tobacco Use Types Packs/Day Years Used Date Smoking Tobacco: Never Assessed Sex and Gender Information Value Date Recorded Sex Assigned at Not on file Gender Identity Not on file Sexual Orientation Not on file documented as of this encounter Plan of Treatment Not on file documented as of this encounter Visit Diagnoses Not on filedocumented in this encounter Care Teams Clinical Psychologist Licensed Relationship Specialty Start Date End Date Found, No Pcp, [address] [place] [address] PCP - General 07/05/23 documented as of this encounter
--- OUTSIDE RECORDS SUMMARY | 2024-04-25 18:11 | XMS_ITS | Encounter Summary ---
Author Organization [facility] Address [address], [place] [address] Care Team Providers Care Window Draper Name Role Phone Found, No Pcp Primary [...] on filedocumented in this encounter Care Teams Window Draper Relationship Specialty Start Date End Date Found, No Pcp, [address] [place] [address] PCP - General 07/05/23 documented as of this encounter
--- OUTSIDE RECORDS SUMMARY | 2024-04-25 18:11 | XMS_ITS | Encounter Summary ---
Author Organization [facility] Address [address] [place] [address] Care Team Providers Care Pie Cutter Name Role Phone Found, No Pcp Primary Care Provider Unavailab le Encounter Details Date Type Department Care Team (Latest Contact Info) Description 08/12/1996 Orders Only Joshua Váz[place] [address] [place] [address] Social History Tobacco Use Types Packs/Day Years Used Date Smoking Tobacco: Never Assessed Sex and Gender Information Value Date Recorded Sex Assigned at Not on file Gender Identity Not on file Sexual Orientation Not on file documented as of this encounter Plan of Treatment Not on file documented as of this encounter Visit Diagnoses Not on filedocumented in this encounter Care Teams Pie Cutter Relationship Specialty Start Date End Date Found, No Pcp, [address] [facility] [place] [place] [address] PCP - General 07/05/23 documented as of this encounter
--- OUTSIDE RECORDS SUMMARY | 2024-04-25 18:11 | XMS_ITS | Encounter Summary ---
[facility] Address [address], [place] [address] Care Team Providers Care Noteman Name Role Phone Found, No Pcp MD Primary Care Provider Unavailab le Reason for Visit * Reason Comments CHEST PAIN--ED Encounter Details Date Type Department Care Team (Late st Contact Info) Description 03/13/2024 7:00 PM TRUST EVALUATION SUPERVISOR Office Visit [facility] [address] [place] [address] Amy Blank PA-C [address] [place], [place] [phone] Chest pressure Social History Tobacco Use Types Packs/Day Years Used Date Smoking Tobacco: Never Smokeless Tobacco: Never Sex and Gender Information Value Date Recorded Sex Assigned at Not on file Gender Identity Not on file Sexual Orientation Not on file documented as of this encounter Last Filed Vital Signs Vital Sign Reading Time Taken Comments Blood Pressure 148/79 03/13/2024 6:57 PM TRUST EVALUATION SUPERVISOR Pulse 98 03/13/2024 6:57 PM TRUST EVALUATION SUPERVISOR Temperature 36.8 C (98.3 F) 03/13/2024 6:57 PM TRUST EVALUATION SUPERVISOR Respiratory Rate 18 03/13/2024 6:57 PM TRUST EVALUATION SUPERVISOR Oxygen Saturation - - Inhaled Oxygen Concentration - - Weight - - Height - - Body Mass Index - - documented in this encounter Progress Notes * Amy Blank PA-C - 03/13/2024 7:00 PM CST [facility] Provider Note Patient: Fide Millan Age: 59 y.o. Date Of : 1965 Urgent Care Provider: CHAVEZ Yeung Date of Service: 03/13/2024 CHIEF COMPLAINT Chief Complaint Patient presents with CHEST PAIN--ED MEDICAL DECISION MAKING PATIENT SENT TO ED FOR: chest pain [facility] - for troponin, unable to obtain [...] Reviewed Nursing Notes: Marleen Caputo RN 03/13/24 240 Addendum Patient reports burning sensation in center/right [...] QT 374 ms QTC 467 ms P Cleveland 51 degrees R [place] 38 degrees T [place] 47 degrees EKG on my interpretation shows [...] on file for this visit. [facility] T EVALUATION SUPERVISOR documented in this encounter Nursing Notes * Marleen Caputo, RN - 03/13/2024 7:00 PM CST Patient reports burning sensation in center/right chest and chest tightness since yesterday. Denies shortness of breath. Hx anxiety/panic attacks, out of Ativan, called PCP, needs appt before refilling. New dx a-fib, denies palpitations, lightheadedness. Hx reflux - taking pantoprazole. drove her to urgent care. T EVALUATION SUPERVISOR documented in this encounter Plan of Treatment Not on file documented as of this encounter Procedures Procedure Name Priority Date/Time Associated Diagnosis Comments ECG 12 LEAD OUTPATIENT STAT 03/13/2024 7:03 PM TRUST EVALUATION SUPERVISOR Chest pressure documented in this encounter Results * ECG 12-LEAD ROUTINE (Non Lab to perform-Today)-STAT (03/13/2024 7:03 PM TRUST EVALUATION SUPERVISOR) Ventricular Rate 94 BPM MUSE GHP Atrial Rate 94 BPM MUSE GHP P-R Interval 156 ms MUSE GHP QRS Duration 90 ms MUSE GHP QT 374 ms MUSE GHP QTC 467 ms MUSE GHP P Cleveland 51 degrees MUSE GHP R Cleveland 38 degrees MUSE GHP T [place] 47 degrees MUSE GHP 03/13/2024 7:03 PM TRUST EVALUATION SUPERVISOR Narrative MUSE GHP - 03/13/2024 8:45 PM TRUST EVALUATION SUPERVISOR Sinus rhythm Normal ECG No previous ECGs available Confirmed by Gokul Dozier ([id number]) on 03/13/2024 8:45:20 PM Procedure Note Gokul Dozier MD - 03/13/2024 Sinus rhythm Normal ECG No previous ECGs available Confirmed by Gokul Dozier ([id number]) on 03/13/2024 8:45:20 PM Amy Blank PA-C PN ECG ORDERABLES Performing Organization Address City/State/[facility] Co de Phone Number [facility] [address] [place] [address] documented in this encounter Visit Diagnoses Diagnosis Chest pressure Other chest pain documented in this encounter Care Teams Noteman Relationship Specialty Start Date End Date Found, No PcpMD [address] [place] [address] PCP - General 07/05/23 documented as of this encounter
--- OUTSIDE RECORDS SUMMARY | 2024-04-25 18:11 | XMS_ITS | Clinical Summary ---
Author Organization [employer] [facility] Address [place], [place] [address] Care Team Providers Care Lapper Name Role Phone Joann Brown DO Primary Care Provider [phone] Allergies No known active allergies Medications miscellaneous [...] 4 2024 Active clobetasol (TEMOVATE) 0.05 % creamIndications:Buford titis APPLY TOPICALLY TO THE AFFECTED AREA DAILY NEEDED 30 g 1 2024 Active dilTIAZem CD (CARDIZEM CD) 120 mg extended release 24 hr capsuleIndications:New onset atrial fibrillation (HC),Essential hypertension Take 1 Capsule (120 mg) by mouth once daily. 90 Capsule 3 03/28 Discontinued( *Medication adjustment) clobetasol (TEMOVATE) 0.05 % creamIndications:Buford titis APPLY TPICALLY TO THE AFFECTED AREA [...] Care Team Description 04/21/2024 Travel 04/11/2024 Refill [facility] [address] [place] [address] Joann Brown, DO Refill Request (Clobetasol) 03/28/2024 3:00 PM BILINGUAL LOAN PROCESSOR Office Visit [facility] [address] [place] [id number] Gatito Maynard MD Follow Up (6 month follow up Atrial fibrillation /Echo 09/08/23) 03/28/2024 Travel 03/25/2024 Travel 03/13/2024 Refill [facility] [address] [place] [address] Joann Brown, DO Refill Request (Lorazepam) 03/13/2024 Refill [facility] [address] [place] [address] Joann Brown, DO Refill Request (LORazepam (ATIVAN) 1 mg tablet 15 Tablet) 02/11/2024 Refill [facility] [address] [place] [address] Joann Brown, DO Refill Request (Clobetasol) 02/09/2024 Refill [facility] [address] [facility] [place] [address] Joann Brown, DO Refill Request (Clobetasol) from [...] on file Legal Sex Female 5:45 AM BILINGUAL LOAN PROCESSOR Gender Identity Not on file Sexual Orientation [...] Comments Blood Pressure 152/88 03/28/2024 3:05 PM BILINGUAL LOAN PROCESSOR Pulse 89 03/28/2024 3:05 PM BILINGUAL LOAN PROCESSOR Temperature 36.7 C (98.1 F) 09/27/2021 12:06 PM CDT Respiratory Rate 20 10/29/2021 2:30 PM CDT Oxygen Saturation 97% 03/28/2024 3:05 PM BILINGUAL LOAN PROCESSOR Inhaled Oxygen Concentration - - Weight 149.2 kg (329 lb) 03/28/2024 3:05 PM BILINGUAL LOAN PROCESSOR Height 172.7 cm (5' 8) 09/10/2023 8:29 AM CDT Body Mass Index 50.02 09/10/2023 8:29 AM CDT Plan of Treatment Upcoming Encounters Date Type Department Care Team (Late st Contact Info) Description 04/26/2024 3:25 PM BILINGUAL LOAN PROCESSOR Office Visit [facility] [address] [place] [address] Joann Brown DO [address] [place] [address] Health Maintenance Due Date Last Done Comments [...] hypercholesterolemia SCAN-MAMMOGRAPHY REPORT 10/03/2020 12:00 AM CDT SUPERVISOR COSTUMING THIN PREP PAP SCREEN IMAGED Routine 04/15/2020 8:45 AM BILINGUAL LOAN PROCESSOR Pap smear for cervical cancer screening ANTI HCV Routine 03/30/2019 12:27 PM BILINGUAL LOAN PROCESSOR Need for hepatitis C screening test SCAN-COLONOSCOPY 12/30/2015 12:0 0 AM CDT from Last 3 Months or Most Recently Relevant to Health Maintenance Results * (ABNORMAL) LIPID PANEL W REFLEX MEASURED LDL (09/01/2023 3:17 PM CDT) CHOLESTEROL,TOTAL 264(H) 100 - 199 mg/dL 09/01/2023 11:47 PM CDT [facility] Comment: Cholesterol, Total Reference Ranges Desirable <200 mg/dL Borderline 200-239 mg/dL High >=240 mg/dL TRIGLYCERIDES 156(H) <150 mg/dL 09/01/2023 11:47 PM CDT [facility] HDL CHOLESTEROL 73 >40 mg/dL 11:47 PM CDT [facility] NON-HDL CHOLESTEROL 191(H) <145 mg/dl 09/01/2023 11:47 PM CDT [facility] CHOL/HDL RATIO 3.62 <4.50 09/01/2023 11:47 PM CDT [facility] LDL CHOLESTEROL 160(H) <=130 mg/dL 09/01/2023 11:47 PM CDT [facility] VLDL CHOLESTEROL 31(H) <=30 mg/dL 09/01/2023 11:47 PM CDT [facility] PROVIDER ORDERED STATUS RANDOM 09/01/2023 11:47 PM CDT [facility] Blood BLOOD SPECIMEN / Unknown Venipuncture / Unknown 09/01/2023 3:17 PM CDT 09/01/2023 3:19 PM CDT us Joann Brown DO CHEMISTRY Final Result Performing Organization Address City/[facility]/ZIP Co de Phone Number [facility] [address] [place] [address], [place] * ANTI HIV 1/2 [10812.0] (09/01/2023 3:17 PM CDT) HIV-1/HIV-2 SCREEN Non-Reacti ve Non-Reacti ve 09/01/2023 11:34 PM CDT [facility] Comment:HIV-1 p24 and HIV-1/ HIV-2 Ab Not Detected. Blood BLOOD SPECIMEN / Unknown Venipuncture / Unknown 09/01/2023 3:17 PM CDT 09/01/2023 3:19 PM CDT us Joann Arianna Kennlucio PEREA SEND OUTS Final Result Performing Organization Address [facility] Co de Phone Number [facility] [address] [place] [address], [place] * SCAN-MAMMOGRAPHY REPORT (10/03/2020 12:00 AM CDT) Anatomical Region Laterality Modality Other us Scanner OTHER Final Result * SUPERVISOR COSTUMING THIN PREP PAP SCREEN IMAGED [[id number]] (04/15/2020 8:45 AM BILINGUAL LOAN PROCESSOR) Case Report Gynecologic Cytology Report Case: [id number] Authorizing Provider: Sherrie Doyle MD Collected: 04/15/2020 0845 Ordering Location: [facility] Received: 04/15/2020 1020 Clinic First Screen: Giselle Alexandra Specimen: SUPERVISOR COSTUMING ThinPrep Vial Screening, Cervical 04/23/2020 2:58 PM BILINGUAL LOAN PROCESSOR [facility] INTERPRETATION/ RESULT NEGATIVE FOR INTRAEPITHELIAL LESION OR MALIGNANCY (NIL) (none) 04/23/2020 2:58 PM BILINGUAL LOAN PROCESSOR [facility] IMEN ADEQUACY Satisfactory for evaluation Endocervical component present 04/23/2020 2:58 PM BILINGUAL LOAN PROCESSOR [facility] [address] [facility] HPV REQUEST HPV and PAP 04/23/2020 2:58 PM BILINGUAL LOAN PROCESSOR [facility] EN[facility] Date of LMP uncertain 04/23/2020 2:58 PM BILINGUAL LOAN PROCESSOR [facility] Last Pap Date 03/18/17 04/23/2020 2:58 PM BILINGUAL LOAN PROCESSOR [facility] Last Pap Result NIL 2:58 PM BILINGUAL LOAN PROCESSOR [facility] Abnormal Pap or Mcrae [place] Bx in last 5 years No 04/23/2020 2:58 PM BILINGUAL LOAN PROCESSOR [facility] Menstrual Status Postmenopausal 04/23/2020 2:58 PM BILINGUAL LOAN PROCESSOR [facility] Mcrae [place] Bx Done Today No 04/23/2020 2:58 PM BILINGUAL LOAN PROCESSOR [facility] Additional Information None given 04/23/2020 2:58 PM BILINGUAL LOAN PROCESSOR [facility] Comment: Cytology is screened at [facility] - [address], [place] [address] [facility] - [address] [place] [address] and [facility] - [address] [place] [address] Interpreted at [facility] - [address], [place] [address] Automated Review Successful 04/23/2020 2:58 PM BILINGUAL LOAN PROCESSOR [facility] Comment:Specimen processed s uccessfully by automated talent acquisition partner device, ThinPrep Imaging System, [employer] ANCILLARY TESTING SUPERVISOR COSTUMING HPV Ordered, Please see separate report 04/23/2020 2:58 PM BILINGUAL LOAN PROCESSOR [facility] Note The pap test [...] pre-malignant and malignant lesions. 04/23/2020 2:58 PM BILINGUAL LOAN PROCESSOR [facility] Other (Cervical) Non-Blood / Unknown 04/15/2020 8:45 AM BILINGUAL LOAN PROCESSOR 04/15/2020 10:20 AM BILINGUAL LOAN PROCESSOR us Sherrie Doyle MD PATHOLOGY/CYTOLOGY Final Resu lt [facility] [address] [place] [address], [place] * ANTI HCV (03/30/2019 12:27 PM BILINGUAL LOAN PROCESSOR) HEPATITIS C ANTIBODY Non-React chiquita Non-React chiquita 03/30/2019 7:09 PM BILINGUAL LOAN PROCESSOR [facility] Comment:Antibodies to HCV no t detected; does not exclude the possibility of exposure to HCV. Blood BLOOD SPECIMEN / Unknown Butterfly / Unknown 03/30/2019 12:27 PM BILINGUAL LOAN PROCESSOR 03/30/2019 12:27 PM BILINGUAL LOAN PROCESSOR us Sherrie Doyle MD SEND OUTS Final Result Performing Organization Address [facility]/ZIP Co de Phone Number [facility] [address] [place] [address], [place] * SCAN-COLONOSCOPY (12/30/2015 12:00 AM CDT) us Scanner OTHER Final Result from Last 3 Months or Most Recently Relevant to Health Maintenance Insurance [facility] [employer] on file Care Teams Lapper Relationship Specialty Start Date End Date [place] [address] [place] [address] PCP - General Family Practice 07/13/22
--- OUTSIDE RECORDS SUMMARY | 2024-04-25 18:11 | XMS_ITS | Encounter Summary ---
Author Organization [facility] Address [address], [place] [address] Care Team Providers Care Procurement Internship Name Role Phone Found, No Pcp [...] on filedocumented in this encounter Care Teams Procurement Internship Relationship Specialty Start Date End Date Found, No Pcp, [address] [place] [address] PCP - General 07/05/23 documented as of this encounter
--- OUTSIDE RECORDS SUMMARY | 2024-04-25 18:11 | XMS_ITS | Encounter Summary ---
Author Organization [facility] Address [address] [place] [address] Care Team Providers Care Hostess Name Role Phone Found, No Pcp Primary Care Provider Unavailab le Encounter Details Date Type Department Care Team (Latest Contact Info) Description 07/06/1994 [place] [address] [place], [place] [address] Social History Tobacco Use Types Packs/Day Years Used Date Smoking Tobacco: Never Assessed Sex and Gender Information Value Date Recorded Sex Assigned at Not on file Gender Identity Not on file Sexual Orientation Not on file documented as of this encounter Plan of Treatment Not on file documented as of this encounter Visit Diagnoses Not on filedocumented in this encounter Care Teams Hostess Relationship Specialty Start Date End Date Found, No PcpMD [address] [facility] [address] PCP - General 07/05/23 documented as of this encounter
--- OUTSIDE RECORDS SUMMARY | 2024-04-25 18:11 | XMS_ITS | Encounter Summary ---
Author Organization [facility] Address [address], [place] [address] Care Team Providers Care Bin Tripper Operator Name Role Phone Found, No Pcp [...] on filedocumented in this encounter Care Teams Bin Tripper Operator Relationship Specialty Start Date End Date Found, No Pcp, [address] [place] [address] PCP - General 07/05/23 documented as of this encounter
--- OUTSIDE RECORDS SUMMARY | 2024-04-25 18:11 | XMS_ITS | Encounter Summary ---
Author Organization [place] Address [address] [place] [address] Care Team Providers Care Negative Cutter Name Role Phone Mp Brown DO Primary Care Provider Reason for Visit * Reason Comments Chest Pain Encounter Details Date Type Department Care Team (Late st Contact Info) Description 03/13/2024 8:58 PM STORE KEEPER - 03/13/2024 11:28 PM STORE KEEPER Emergency [facility] Emergency Dept [address] [place] [address] [phone] Itz Lino MD EMERGENCY PHYSICIAN [place] [address] [place] [address] [place] [address] [id number] Nonspecific chest pain; Anxiety state Discharge Disposition: Home or Self Care Social History Tobacco Use Types Packs/Day Years Used Date Smoking Tobacco: Never Assessed Adolescent Education Answer Date Record ed Getting School Help Needed Not on file 01/01 Comments No Sex and Gender Information Value Date Recorded Sex Assigned at Not on file Legal Sex Female 3:23 AM STORE KEEPER Gender Identity Not on file Sexual Orientation Not on file documented as of this encounter Last Filed Vital Signs Vital Sign Reading Time Taken Comments Blood Pressure 157/88 03/13/2024 7:26 PM STORE KEEPER Pulse 101 03/13/2024 7:26 PM STORE KEEPER Temperature 36.7 C (98 F) 03/13/2024 7:26 PM STORE KEEPER Respiratory Rate 18 03/13/2024 7:26 PM STORE KEEPER Oxygen Saturation 97% 03/13/2024 7:26 PM STORE KEEPER Inhaled Oxygen Concentration - - Weight - - Height - - Body Mass Index - - documented in this encounter Discharge Instructions * Attachments The following attachments cannot be sent through Care Everywhere. * Generalized Anxiety Disorder (Burkinan) * Chest Pain (Burkinan) documented in this encounter Medications at Time [...] sinus rhythm Normal ECG Rate 97 bpm. RI interval 162 ms. QRS duration 88 ms. [...] Documentation None Medical Decision Making / Diagnosis [facility] Diagnoses: None MIPS None [facility] Fide Millan is a 59 year old [...] Fide Mathews, am serving as the scribe puppy trainer for Mick Vasques, the scribe trainee, at 11:23 PM on 03/13/2024 to document services personally performed by Itz Lino MD based on our observations and the provider's statements to us. Itz Lino MD 03/14/246 E KEEPER * Marilu Mojica RN - 03/13/2024 7:28 PM CST Presents to triage with c/o intermittent mid sternal chest pain that started yesterday. Pain feels like a burning sensation. Patient states she thinks she might just be anxious and that she has had chest pain with anxiety previously. Hx of a fib. Was seen at and sent to ED for further eval. E KEEPER documented in this encounter Plan of Treatment Not on file documented as of this encounter Procedures Procedure Name Priority Date/Time Associated Diagnosis Comments XR CHEST 2 VIEWS STAT 03/13/2024 10:0 0 PM STORE KEEPER EXTRA TUBE STAT 03/13/2024 7:51 PM STORE KEEPER EXTRA RED TOP TUBE STAT 03/13/2024 7: 51 PM STORE KEEPER EXTRA BLUE TOP TUBE STAT 03/13/2024 7 :51 PM STORE KEEPER CBC WITH PLATELETS AND DIFFERENTIAL STAT 03/13/2024 7:51 PM STORE KEEPER TROPONIN T, HIGH SENSITIVITY STAT 03/13/2024 7:51 PM STORE KEEPER CBC WITH PLATELETS & DIFFERENTIAL STAT 03/13/2024 7:51 PM STORE KEEPER BASIC METABOLIC PANEL STAT 03/13/2024 7:51 PM STORE KEEPER EKG 12-LEAD, TRACING ONLY STAT 03/13/2024 7:21 PM STORE KEEPER documented in this encounter Results * XR Chest 2 Views (03/13/2024 10:00 PM STORE KEEPER) Anatomical Region Laterality Modality Chest Computed Radiogr aphy 03/13/2024 10:0 0 PM STORE KEEPER Impressions 03/13/2024 10:12 PM STORE KEEPER IMPRESSION: No acute cardiopulmonary or musculoskeletal abnormalities identified to explain patient's chest pain clinically. Moderate hypertrophic changes in the spine. Narrative 03/13/2024 10:12 PM STORE KEEPER EXAM: XR CHEST 2 VIEWS LOCATION: [facility] DATE: 03/13/2024 INDICATION: cp COMPARISON: 01/01/2023 Procedure Note Lino Montes MD - 03/13/2024 EXAM: XR CHEST 2 VIEWS LOCATION: [facility] DATE: 03/13/2024 INDICATION: cp COMPARISON: 01/01/2023 IMPRESSION: No acute cardiopulmonary or musculoskeletal abnormalitiesidentified to explain patient's chest pain clinically. Moderatehypertrophic changes in the spine. Itz Lino MD IMG DIAGNOSTIC IMAGING ORDERA BLES Final Result * Extra Red Top Tube (03/13/2024 7:51 PM STORE KEEPER) Hold Specimen [facility] 03/13/2024 9:03 PM STORE KEEPER RH LABORATORY Blood STRUCTURE OF LEFT HAND / Unknown Venipuncture / Unknown 03/13/2024 7:51 PM STORE KEEPER 03/13/2024 7:57 PM STORE KEEPER Itz Lino MD LAB - BLOOD ORDERABLES Final Result LABORATORY [facility] Acute Care Lab [address] Lab (1st floor, no room number) [place] [address], [facility] * Extra Blue Top Tube (03/13/2024 7:51 PM STORE KEEPER) Hold Specimen [facility] 03/13/2024 9:03 PM STORE KEEPER LABORATORY Blood STRUCTURE OF LEFT HAND / Unknown Venipuncture / Unknown 03/13/2024 7:51 PM STORE KEEPER 03/13/2024 7:56 PM STORE KEEPER us Itz Lino MD LAB - BLOOD ORDERABLES Final Result RH LABORATORY [facility] Acute Care Lab [address] Lab (1st floor, no room number) [place] [address], [facility] * (ABNORMAL) CBC with platelets and differential (03/13/2024 7:51 PM STORE KEEPER) Pathologist [facility] Emergency Department WBC Count 7.7 4.0 - 11.0 10e3/uL 03/13/2024 8:07 PM STORE KEEPER RH LABORATORY RBC Count 5.19 3.80 - 5.20 10e6/uL 03/13/2024 8:07 PM STORE KEEPER RH LABORATORY Hemoglobin 12.3 11.7 - 15.7 g/dL 03/13/2024 8:07 PM STORE KEEPER RH LABORATORY Hematocrit 40.0 35.0 - 47.0 % 03/13/2024 8:07 PM STORE KEEPER RH LABORATORY MCV 77(L) 78 - 100 fL 03/13/2024 8:07 PM STORE KEEPER RH LABORATORY MCH 23.7(L) 26.5 - 33.0 pg 03/13/2024 8:07 PM STORE KEEPER RH LABORATORY MCHC 30.8(L) 31.5 - 36.5 g/dL 03/13/2024 8:07 PM STORE KEEPER RH LABORATORY RDW 15.6(H) 10.0 - 15.0 % 03/13/2024 8:07 PM STORE KEEPER RH LABORATORY Platelet Count 288 150 - 450 10e3/uL 03/13/2024 8:07 PM STORE KEEPER RH LABORATORY % Neutrophils 56 % 03/13/2024 8:07 PM STORE KEEPER RH LABORATORY % Lymphocytes 33 % 03/13/2024 8:07 PM STORE KEEPER RH LABORATORY % Monocytes 7 % 03/13/2024 8:07 PM STORE KEEPER RH LABORATORY % Eosinophils 3 % 03/13/2024 8:07 PM STORE KEEPER RH LABORATORY % Basophils 0 % 03/13/2024 8:07 PM STORE KEEPER RH LABORATORY % Immature Granulocytes 0 % 03/13/2024 8:07 PM STORE KEEPER RH LABORATORY NRBCs per 100 WBC 0 <1 /100 12/23/2 024 8:07 PM STORE KEEPER RH LABORATORY Absolute Neutrophils 4.3 1.6 - 8.3 10e3/uL 03/13/2024 8:07 PM STORE KEEPER RH LABORATORY Absolute Lymphocytes 2.5 0.8 - 5.3 10e3/uL 03/13/2024 8:07 PM STORE KEEPER LABORATORY Absolute Monocytes 0.6 0.0 - 1.3 10e3/uL 03/13/2024 8:07 PM STORE KEEPER RH LABORATORY Absolute Eosinophils 0.2 0.0 - 0.7 10e3/uL 03/13/2024 8:07 PM STORE KEEPER LABORATORY Absolute Basophils 0.0 0.0 - 0.2 10e3/uL 03/13/2024 8:07 PM STORE KEEPER LABORATORY Absolute Immature Granulocytes 0.0 <=0.4 10e3/uL 03/13/2024 8:07 PM STORE KEEPER LABORATORY Absolute NRBCs 0.0 10e3/uL 03/13/2024 8:07 PM STORE KEEPER LABORATORY Blood STRUCTURE OF LEFT HAND / Unknown Venipuncture / Unknown 03/13/2024 7:51 PM STORE KEEPER 03/13/2024 7:56 PM STORE KEEPER us Itz Lino MD LAB - BLOOD ORDERABLES Final Result LABORATORY [facility] Acute Care Lab [address] [facility] Lab (1st floor, no room number) [place] [address], [facility] * Troponin T, High Sensitivity (03/13/2024 7:51 PM STORE KEEPER) Troponin T, High Sensitivity <6 <=14 ng/L 03/13/2024 8:36 PM STORE KEEPER LABORATORY Comment: Either a High Sensitivity Troponin [...] Unknown Venipuncture / Unknown 03/13/2024 7:51 PM STORE KEEPER 03/13/2024 7:56 PM STORE KEEPER us Itz Lino MD LAB - BLOOD ORDERABLES Final Result LABORATORY [facility] Acute Care Lab [address] Lab (1st floor, no room number) [place] [address], [facility] * (ABNORMAL) Basic metabolic panel (BMP) (03/13/2024 7:51 PM STORE KEEPER) Sodium 137 135 - 145 mmol/L 03/13/2024 8:36 PM [facility]ORATORY Potassium 3.8 3.4 - 5.3 mmol/L 03/13/2024 8:36 PM [facility] Chloride 102 98 - 107 mmol/L 03/13/2024 8:36 PM [facility] Carbon Dioxide (CO2) 20(L) 22 - 29 mmol/L 03/13/2024 8:36 PM [facility] Anion Gap 15 7 - 15 mmol/L 03/13/2024 8:36 PM [facility] Urea Nitrogen 14.6 8.0 - 23.0 mg/dL 03/13/2024 8:36 PM [facility] Creatinine 0.70 0.51 - 0.95 mg/dL 03/13/2024 8:36 PM [facility] GFR Estimate >90 >60 mL/min/1.7 3m2 03/13/2024 8:36 PM [facility] Comment:eGFR calculated us2020 CKD-EPI equation. Calcium 9.5 8.8 - 10.4 mg/dL 03/13/2024 8:36 PM [facility] Comment:Reference intervals for this test were updated on 10/05/2023 to reflect our healthy population more accurately. There may be differences in the flagging of prior results with similar values performed with this method. Those prior results can be interpreted in the context of the updated reference intervals. Glucose 180(H) 70 - 99 mg/dL 03/13/2024 8:36 PM STORE KEEPER LABORATORY Blood STRUCTURE OF LEFT HAND / Unknown Venipuncture / Unknown 03/13/2024 7:51 PM STORE KEEPER 03/13/2024 7:56 PM STORE KEEPER Itz Lino MD LAB - BLOOD ORDERABLES Final Result RH LABORATORY [facility] Acute Care Lab [address] Lab (1st floor, no room number) [place] [address] * EKG 12-lead, tracing only (03/13/2024 7:21 PM STORE KEEPER) Systolic Blood Pressure mmHg RADIOLOGY RESULTS Diastolic Blood Pressure mmHg RADIOLOGY RESULTS Ventricular Rate 97 BPM RAD IOLOGY RESULTS Atrial Rate 97 BPM RADIOLOG Y RESULTS RI Interval 162 ms RADIOLOG Y RESULTS QRS Duration 88 ms RADIOLO GY RESULTS QT 360 ms RADIOLOGY RESULTS QTc 457 ms RADIOLOGY RESULTS P [place] 58 degrees RADIOLOGY RESULTS R AXIS 50 degrees RADIOLOGY RESULTS T [place] 50 degrees RADIOLOGY RESULTS Interpretation ECG Sinus rhythm Normal ECG No previous ECGs available Unconfirmed report - interpretation of this ECG is computer generated - see medical record for final interpretation Confirmed by - EMERGENCY ROOM, PHYSICIAN ([id number]), videotape editor MICHELINE SUTHERLAND ([id number]) on 03/14/2024 6:46:57 AM RADIOLOGY RESULTS 03/13/2024 7:21 PM STORE KEEPER 03/14/2024 6:46 AM STORE KEEPER Itz Lino MD ECG ORDERABLES Edited Result [...] For 1 dose $Given 03/13/2024 9:52 PM STORE KEEPER 400 mg LORazepam (ATIVAN) tablet 1 mg 1 mg, Oral, ONCE, On Wed03/13/24 at 2150, For 1 dose $Given 03/13/2024 9:52 PM STORE KEEPER 1 mg documented in this encounter Active and Recently Administered Medications Times are shown in STORE KEEPER. Scheduled Medication Order 03/11/2024 03/12/2024 03/13/2024 ibuprofen (ADVIL/MOTRIN) tablet 400 mg (COMPLETED) 400 mg, Oral, ONCE, On Wed03/13/24 at 2150, For 1 dose 2151 ($Given - Provi [place]: Jennifer Duggan RN) LORazepam (ATIVAN) tablet 1 mg (COMPLETED) 1 mg, Oral, ONCE, On Wed03/13/24 at 2150, For 1 dose 2151 ($Given - Provi [place]: Jennifer Duggan RN) documented in this encounter Care Teams Negative Cutter Relationship Specialty Start Date End Date Mp Brown DO [address] [place] [address] PCP - General 01/01/23 documented as of this encounter
--- OUTSIDE RECORDS SUMMARY | 2024-04-25 18:12 | XMS_ITS | Encounter Summary ---
Author Organization Replaced by [facility] Address [address], [place] [address] Care Team Providers Care Gallery Or Museum Guide Name Role Phone Found, No Pcp Primary [...] on filedocumented in this encounter Care Teams Gallery Or Museum Guide Relationship Specialty Start Date End Date Found, No Pcp, [address] [place] [address] PCP - General 07/05/23 documented as of this encounter
--- OUTSIDE RECORDS SUMMARY | 2024-04-25 18:12 | XMS_ITS | Encounter Summary ---
Author Organization [facility] Address [address], [place] [address] Care Team Providers Care Metal Coater Name Role Phone Found, No Pcp Primary [...] filedocumented in this encounter Care Teams Metal Coater Relationship Specialty Start Date End Date Found, No Pcp, [address] [place] [address] PCP - General 07/05/23 documented as of this encounter
--- OUTSIDE RECORDS SUMMARY | 2024-04-25 18:12 | XMS_ITS | Clinical Summary ---
Author Organization [place] Address [address] [place] [address] Care Team Providers Care Film Cutter Name Role Phone Mp Brown DO Primary Care Provider [phone] Allergies No known active allergies Medications cyclobenzaprine [...] Department Care Team Description 03/13/2024 8:58 PM GANG HEAD SAW OPERATOR - 03/13/2024 11:28 PM GANG HEAD SAW OPERATOR Emergency [facility] Emergency Dept [address] [place] [address] Itz Lino MD Nonspecific chest pain; Anxiety [...] on file Legal Sex Female 3:23 AM GANG HEAD SAW OPERATOR Gender Identity Not on file Sexual Orientation Not on file Last Filed Vital Signs Vital Sign Reading Time Taken Comments Blood Pressure 157/88 03/13/2024 7:26 PM GANG HEAD SAW OPERATOR Pulse 101 03/13/2024 7:26 PM GANG HEAD SAW OPERATOR Temperature 36.7 C (98 F) 03/13/2024 7:26 PM GANG HEAD SAW OPERATOR Respiratory Rate 18 03/13/2024 7:26 PM GANG HEAD SAW OPERATOR Oxygen Saturation 97% 03/13/2024 7:26 PM GANG HEAD SAW OPERATOR Inhaled Oxygen Concentration - - Weight 158.3 [...] 2 VIEWS STAT 03/13/2024 10:0 0 PM GANG HEAD SAW OPERATOR CBC WITH PLATELETS & DIFFERENTIAL STAT 03/13/2024 7:51 PM GANG HEAD SAW OPERATOR EXTRA RED TOP TUBE STAT 03/13/2024 7: 51 PM GANG HEAD SAW OPERATOR EXTRA BLUE TOP TUBE STAT 03/13/2024 7 :51 PM GANG HEAD SAW OPERATOR CBC WITH PLATELETS AND DIFFERENTIAL STAT 03/13/2024 7:51 PM GANG HEAD SAW OPERATOR EXTRA TUBE STAT 03/13/2024 7:51 PM GANG HEAD SAW OPERATOR TROPONIN T, HIGH SENSITIVITY STAT 03/13/2024 7:51 PM GANG HEAD SAW OPERATOR BASIC METABOLIC PANEL STAT 03/13/2024 7:51 PM GANG HEAD SAW OPERATOR EKG 12-LEAD, TRACING ONLY STAT 03/13/2024 7:21 PM GANG HEAD SAW OPERATOR EKG CARDIAC - HIM SCAN 03/13/2024 12:00 AM GANG HEAD SAW OPERATOR from Last 3 Months Results * XR Chest 2 Views (03/13/2024 10:00 PM GANG HEAD SAW OPERATOR) Anatomical Region Laterality Modality Chest Computed Radiogr aphy 03/13/2024 10:0 0 PM GANG HEAD SAW OPERATOR Impressions 03/13/2024 10:12 PM GANG HEAD SAW OPERATOR IMPRESSION: No acute cardiopulmonary or musculoskeletal abnormalities identified to explain patient's chest pain clinically. Moderate hypertrophic changes in the spine. Narrative 03/13/2024 10:12 PM GANG HEAD SAW OPERATOR EXAM: XR CHEST 2 VIEWS LOCATION: [facility] DATE: 03/13/2024 INDICATION: cp COMPARISON: 01/01/2023 Procedure Note Lino Montes MD - 03/13/2024 EXAM: XR CHEST 2 VIEWS LOCATION: [facility] DATE: 03/13/2024 INDICATION: cp COMPARISON: 01/01/2023 IMPRESSION: No acute cardiopulmonary or musculoskeletal abnormalitiesidentified to explain patient's chest pain clinically. Moderatehypertrophic changes in the spine. Itz Lino MD IMG DIAGNOSTIC IMAGING ORDERA BLES Final Result * Extra Red Top Tube (03/13/2024 7:51 PM GANG HEAD SAW OPERATOR) Hold Specimen [facility] 03/13/2024 9:03 PM GANG HEAD SAW OPERATOR LABORATORY Blood STRUCTURE OF LEFT HAND / Unknown Venipuncture / Unknown 03/13/2024 7:51 PM GANG HEAD SAW OPERATOR 03/13/2024 7:57 PM GANG HEAD SAW OPERATOR Itz Lino MD LAB - BLOOD ORDERABLES Final Result [facility] Lab [address] Lab (1st floor, no room number) [address] * Extra Blue Top Tube (03/13/2024 7:51 PM GANG HEAD SAW OPERATOR) Hold Specimen [facility] 03/13/2024 9:03 PM GANG HEAD SAW OPERATOR LABORATORY Blood STRUCTURE OF LEFT HAND / Unknown Venipuncture / Unknown 03/13/2024 7:51 PM GANG HEAD SAW OPERATOR 03/13/2024 7:56 PM GANG HEAD SAW OPERATOR us Itz Lino MD LAB - BLOOD ORDERABLES Final Result [facility] Lab [address] Lab (1st floor, no room number) [address] * (ABNORMAL) CBC with platelets and differential (03/13/2024 7:51 PM GANG HEAD SAW OPERATOR) WBC Count 7.7 4.0 - 11.0 10e3/uL 03/13/2024 8:07 PM GANG HEAD SAW OPERATOR [facility] LABORATORY RBC Count 5.19 3.80 - 5.20 10e6/uL 03/13/2024 8:07 PM GANG HEAD SAW OPERATOR [facility] LABORATORY Hemoglobin 12.3 11.7 - 15.7 g/dL 03/13/2024 8:07 PM GANG HEAD SAW OPERATOR [facility] LABORATORY Hematocrit 40.0 35.0 - 47.0 % 03/13/2024 8:07 PM GANG HEAD SAW OPERATOR [facility] LABORATORY MCV 77(L) 78 - 100 fL 03/13/2024 8:07 PM GANG HEAD SAW OPERATOR [facility] LABORATORY MCH 23.7(L) 26.5 - 33.0 pg 03/13/2024 8:07 PM GANG HEAD SAW OPERATOR [facility] LABORATORY MCHC 30.8(L) 31.5 - 36.5 g/dL 03/13/2024 8:07 PM GANG HEAD SAW OPERATOR [facility] LABORATORY RDW 15.6(H) 10.0 - 15.0 % 03/13/2024 8:07 PM GANG HEAD SAW OPERATOR [facility] LABORATORY Platelet Count 288 150 - 450 10e3/uL 03/13/2024 8:07 PM GANG HEAD SAW OPERATOR [facility] LAB[facility] % Neutrophils 56 % 03/13/2024 8:07 PM GANG HEAD SAW OPERATOR [facility] LAB[facility] % Lymphocytes 33 % 03/13/2024 8:07 PM GANG HEAD SAW OPERATOR [facility] LAB[facility] % Monocytes 7 % 03/13/2024 8:07 PM GANG HEAD SAW OPERATOR [facility] LABORAT[facility] % Eosinophils 3 % 03/13/2024 8:07 PM GANG HEAD SAW OPERATOR [facility] LABORAT[facility] % Basophils 0 % 03/13/2024 8:07 PM GANG HEAD SAW OPERATOR [facility] LABORAT[facility] % Immature Granulocytes 0 % 03/13/2024 8:07 PM GANG HEAD SAW OPERATOR [facility] LABORATORY NRBCs per 100 WBC 0 <1 /100 024 8:07 PM GANG HEAD SAW OPERATOR [facility] LABORATORY Absolute Neutrophils 4.3 1.6 - 8.3 10e3/uL 03/13/2024 8:07 PM GANG HEAD SAW OPERATOR [facility] LABORATORY Absolute Lymphocytes 2.5 0.8 - 5.3 10e3/uL 03/13/2024 8:07 PM GANG HEAD SAW OPERATOR [facility] LABORATORY Absolute Monocytes 0.6 0.0 - 1.3 10e3/uL 03/13/2024 8:07 PM GANG HEAD SAW OPERATOR [facility] LABORATORY Absolute Eosinophils 0.2 0.0 - 0.7 10e3/uL 03/13/2024 8:07 PM GANG HEAD SAW OPERATOR [facility] LABORATORY Absolute Basophils 0.0 0.0 - 0.2 10e3/uL 03/13/2024 8:07 PM GANG HEAD SAW OPERATOR [facility] LABORATORY Absolute Immature Granulocytes 0.0 <=0.4 10e3/uL 03/13/2024 8:07 PM GANG HEAD SAW OPERATOR LABORATORY Absolute NRBCs 0.0 10e3/uL 03/13/2024 8:07 PM GANG HEAD SAW OPERATOR LABORATORY Blood STRUCTURE OF LEFT HAND / Unknown Venipuncture / Unknown 03/13/2024 7:51 PM GANG HEAD SAW OPERATOR 03/13/2024 7:56 PM GANG HEAD SAW OPERATOR Itz Lino MD LAB - BLOOD ORDERABLES Final Result LABORATORY [facility] Acute Care Lab [address] Lab (1st floor, no room number) [place] [phone] [place] [address] * Troponin T, High Sensitivity (03/13/2024 7:51 PM GANG HEAD SAW OPERATOR) [facility] Troponin T, High Sensitivity <6 <=14 ng/L 03/13/2024 8:36 PM GANG HEAD SAW OPERATOR RH LABORATORY Comment: Either a High Sensitivity [...] Unknown Venipuncture / Unknown 03/13/2024 7:51 PM GANG HEAD SAW OPERATOR 03/13/2024 7:56 PM GANG HEAD SAW OPERATOR Itz Lino MD LAB - BLOOD ORDERABLES Final Result Performing Organization Address City/[facility]/ZIP Co de Phone Number LABORATORY [facility] Lab [address] Lab (1st floor, no room number) [place] [address], [place] * (ABNORMAL) Basic metabolic panel (BMP) (03/13/2024 7:51 PM GANG HEAD SAW OPERATOR) Sodium 137 135 - 145 mmol/L 03/13/2024 8:36 PM GANG HEAD SAW OPERATOR LABORATORY Potassium 3.8 3.4 - 5.3 mmol/L 03/13/2024 8:36 PM GANG HEAD SAW OPERATOR LABORATORY Chloride 102 98 - 107 mmol/L 03/13/2024 8:36 PM GANG HEAD SAW OPERATOR LABORATORY Carbon Dioxide (CO2) 20(L) 22 - 29 mmol/L 03/13/2024 8:36 PM GANG HEAD SAW OPERATOR LABORATORY Anion Gap 15 7 - 15 mmol/L 03/13/2024 8:36 PM GANG HEAD SAW OPERATOR LABORATORY Urea Nitrogen 14.6 8.0 - 23.0 mg/dL 03/13/2024 8:36 PM GANG HEAD SAW OPERATOR LABORATORY Creatinine 0.70 0.51 - 0.95 mg/dL 03/13/2024 8:36 PM GANG HEAD SAW OPERATOR LABORATORY GFR Estimate >90 >60 mL/min/1.7 3m2 03/13/2024 8:36 PM GANG HEAD SAW OPERATOR LABORATORY Comment:eGFR calculated usin 2020 CKD-EPI equation. Calcium 9.5 8.8 - 10.4 mg/dL 03/13/2024 8:36 PM GANG HEAD SAW OPERATOR LABORATORY Comment:Reference intervals for this test were updated on 10/05/2023 to reflect our healthy population more accurately. There may be differences in the flagging of prior results with similar values performed with this method. Those prior results can be interpreted in the context of the updated reference intervals. Glucose 180(H) 70 - 99 mg/dL 03/13/2024 8:36 PM GANG HEAD SAW OPERATOR LABORATORY Blood STRUCTURE OF LEFT HAND / Unknown Venipuncture / Unknown 03/13/2024 7:51 PM GANG HEAD SAW OPERATOR 03/13/2024 7:56 PM GANG HEAD SAW OPERATOR us Itz Lino MD LAB - BLOOD ORDERABLES Final Result LABORATORY [facility] Lab [address] Lab (1st floor, no room number) [place] [address], [facility] * EKG 12-lead, tracing only (03/13/2024 7:21 PM GANG HEAD SAW OPERATOR) Systolic Blood Pressure mmHg RADIOLOGY RESULTS Diastolic Blood Pressure mmHg RADIOLOGY RESULTS Ventricular Rate 97 BPM RAD IOLOGY RESULTS Atrial Rate 97 BPM RADIOLOG Y RESULTS FL Interval 162 ms RADIOLOG Y RESULTS QRS Duration 88 ms RADIOLO GY RESULTS QT 360 ms RADIOLOGY RESULTS QTc 457 ms RADIOLOGY RESULTS P [place] 58 degrees RADIOLOGY RESULTS R AXIS 50 degrees RADIOLOGY RESULTS T [place] 50 degrees RADIOLOGY RESULTS Interpretation ECG Sinus rhythm Normal ECG No previous ECGs available Unconfirmed report - interpretation of this ECG is computer generated - see medical record for final interpretation Confirmed by - EMERGENCY ROOM, PHYSICIAN ([id number]), news editor MICHELINE SUTHERLAND ([id number]) on 03/14/2024 6:46:57 AM RADIOLOGY RESULTS 03/13/2024 7:21 PM GANG HEAD SAW OPERATOR 03/14/2024 6:46 AM GANG HEAD SAW OPERATOR us Itz Lino MD ECG ORDERABLES Edited Result - Final RADIOLOGY RESULTS * EKG Cardiac - HIM Scan (03/13/2024 12:00 AM GANG HEAD SAW OPERATOR) 03/13/2024 us Provider Outside ECG ORDERABLES Final Result from Last 3 Months Insurance [facility] Care Teams Film Cutter Relationship Specialty Start Date End Date Mp Brown DO [address] [place] [address] PCP - General 01/01/23
--- OUTSIDE RECORDS SUMMARY | 2024-04-25 18:12 | XMS_ITS | Encounter Summary ---
Author Organization [facility] Address [address], [place] [address] Care Team Providers Care Hospice Art Therapist Name Role Phone Found, No Pcp Primary [...] on filedocumented in this encounter Care Teams Hospice Art Therapist Relationship Specialty Start Date End Date Found, No Pcp, [address] [place] [address] PCP - General 07/05/23 documented as of this encounter
--- OUTSIDE RECORDS SUMMARY | 2024-04-25 18:12 | XMS_ITS | Encounter Summary ---
Author Organization [facility] Address [address] [place] [address] Care Team Providers Care Occ Ther Name Role Phone Found, No Pcp Primary Care Provider Unavailab le Encounter Details Date Type Department Care Team (Late st Contact Info) Description 06/05/[address] [facility] Scott Pedroza MD [address] [address] Social History Tobacco Use Types Packs/Day Years Used Date Smoking Tobacco: Never Assessed Sex and Gender Information Value Date Recorded Sex Assigned at Not on file Gender Identity Not on file Sexual Orientation Not on file documented as of this encounter Plan of Treatment Not on file documented as of this encounter Visit Diagnoses Not on filedocumented in this encounter Care Teams Occ Ther Relationship Specialty Start Date End Date Found, No Pcp, [address] [place] [address] PCP - General 07/05/23 documented as of this encounter
--- OUTSIDE RECORDS SUMMARY | 2024-04-25 18:12 | XMS_ITS | Encounter Summary ---
Author Organization [facility] Address [address] [place] [address] Care Team Providers Care Dogman/Woman Name Role Phone Found, No Pcp Primary Care Provider Unavailab le Encounter Details Date Type Department Care Team (Latest Contact Info) Description 09/20/1995 Orders Only Kyree Coronado MD [address] [place], [place] [id number] Social History Tobacco Use Types Packs/Day Years Used Date Smoking Tobacco: Never Assessed Sex and Gender Information Value Date Recorded Sex Assigned at Not on file Gender Identity Not on file Sexual Orientation Not on file documented as of this encounter Plan of Treatment Not on file documented as of this encounter Visit Diagnoses Not on filedocumented in this encounter Care Teams Dogman/Woman Relationship Specialty Start Date End Date Found, No Pcp, [address] [place] [address] PCP - General 07/05/23 documented as of this encounter
--- OUTSIDE RECORDS SUMMARY | 2024-04-25 18:12 | XMS_ITS | Encounter Summary ---
Author Organization [facility] Address [address] [address] Care Team Providers Care Grocery Clerk Checking Name Role Phone Found, No Pcp Primary [...] on filedocumented in this encounter Care Teams Grocery Clerk Checking Relationship Specialty Start Date End Date Found, No Pcp, [address] [facility] [place] [address] PCP - General 07/05/23 documented as of this encounter
--- OUTSIDE RECORDS SUMMARY | 2024-04-25 18:12 | XMS_ITS | Encounter Summary ---
Author Organization [facility] Address [address], [place] [address] Care Team Providers Care Can Sealer Name Role Phone Found, No Pcp Primary [...] on filedocumented in this encounter Care Teams Can Sealer Relationship Specialty Start Date End Date Found, No Pcp, [address] [facility] [place] [place] [address] PCP - General 07/05/23 documented as of this encounter
--- OUTSIDE RECORDS SUMMARY | 2024-04-25 18:12 | XMS_ITS | Encounter Summary ---
Author Organization [facility] Address [address], [place] [address] Care Team Providers Care Wheelchair Van Operator First Responder Name Role Phone Found, No Pcp Primary Care Provider Unavailab le Encounter Details Date Type Department Care Team (Latest Contact Info) Description 07/02/1995 Orders Only Be Blum [facility] [address] [facility], [address] Social History Tobacco Use Types [...] on filedocumented in this encounter Care Teams Wheelchair Van Operator First Responder Relationship Specialty Start Date End Date Found, No Pcp, [address] [place] [address] PCP - General 07/05/23 documented as of this encounter
--- OUTSIDE RECORDS SUMMARY | 2024-04-25 18:12 | XMS_ITS | Clinical Summary ---
Author Organization [facility] Address [address] [place] [address] Care Team Providers Care Forest Supervisor Name Role Phone Found, No Pcp MD Primary Care Provider Unavailab le Source Comments You are receiving this document as you are listed as the primary care provider,follow-up provider, or the patient has been referred to you for consultation.This is in compliance with the Medicare and[facility] Cent[facility]aid EHR Incentive Program,which states Providers who transition their patient to another setting of careor provider of care or refers their patient to another provider of care shouldprovide summary care record for each transition of care or referral. [facility] Allergies No known active allergies Medications [...] Department Care Team Description 03/13/2024 7:00 PM DRY HOUSE WHEELER Office Visit [facility] [address] [place] [address] Amy Blank PA-C Chest pressure [...] Comments Blood Pressure 148/79 03/13/2024 6:57 PM DRY HOUSE WHEELER Pulse 98 03/13/2024 6:57 PM DRY HOUSE WHEELER Temperature 36.8 C (98.3 F) 03/13/2024 6:57 PM DRY HOUSE WHEELER Respiratory Rate 18 03/13/2024 6:57 PM DRY HOUSE WHEELER Oxygen Saturation - - Inhaled Oxygen Concentration - - Weight 156.5 kg (345 lb) 05/14/2023 10:00 AM DRY HOUSE WHEELER Height 175.3 cm (5' 9) 05/14/2023 10:00 AM DRY HOUSE WHEELER Body Mass Index 50.95 05/14/2023 10:00 AM DRY HOUSE WHEELER Plan of Treatment Health Maintenance Due Date [...] 12 LEAD OUTPATIENT STAT 03/13/2024 7:03 PM DRY HOUSE WHEELER Chest pressure CHOLESTEROL (TOTAL) Routine 01/16/1998 1 1:49 AM DRY HOUSE WHEELER from Last 3 Months or Most Recently Relevant to Health Maintenance Results * ECG 12-LEAD ROUTINE (Non Lab to perform-Today)-STAT (03/13/2024 7:03 PM DRY HOUSE WHEELER) Ventricular Rate 94 BPM [facility]USE [facility] Atrial Rate 94 BPM [facility]USE [facility] P-R Interval 156 ms MUSE [facility] QRS Duration 90 ms MUSE GHP QT 374 ms MUSE GHP QTC 467 ms MUSE GHP P [place] 51 degrees MUSE GHP R [place] 38 degrees MUSE GHP T [place] 47 degrees MUSE GHP 03/13/2024 7:03 PM DRY HOUSE WHEELER Narrative MUSE GHP - 03/13/2024 8:45 PM DRY HOUSE WHEELER Sinus rhythm Normal ECG No previous ECGs available Confirmed by Gokul Dozier ([id number]) on 03/13/2024 8:45:20 PM Procedure Note Gokul Dozier MD - 03/13/2024 Sinus rhythm Normal ECG No previous ECGs available Confirmed by Gokul Dozier ([id number]) on 03/13/2024 8:45:20 PM Amy Blank PA-C PN ECG ORDERABLES Performing Organization Address [facility] Co de Phone Number [facility] [address] [place] [address] * (ABNORMAL) CHOLESTEROL (TOTAL) (01/16/1998 11:49 AM DRY HOUSE WHEELER) Cholesterol 238(H) <200 mg/dl [facility] Result should not be interpreted without the patient's history of cardiovascular risk factors. [facility] 01/16/1998 11:4 9 AM DRY HOUSE WHEELER 01/16/1998 11:50 AM DRY HOUSE WHEELER Emilio Dewey MD LAB_1 Performing Organization Address City/[facility]/ZIP Co de Phone Number [facility] [address] [address] from Last 3 Months or Most Recently Relevant to Health Maintenance Care Teams Forest Supervisor Relationship Specialty Start Date End Date Found, No Pcp, [address] [place] [address] PCP - General 07/05/23
--- OUTSIDE RECORDS SUMMARY | 2024-04-25 18:12 | XMS_ITS | Encounter Summary ---
Author Organization [facility] Address [address], [place] [address] Care Team Providers Care Administrative Professional Name Role Phone Found, No Pcp [...] filedocumented in this encounter Care Teams Administrative Professional Relationship Specialty Start Date End Date Found, No Pcp, [address] [place] [address] PCP - General 07/05/23 documented as of this encounter
--- OUTSIDE RECORDS SUMMARY | 2024-04-25 18:12 | XMS_ITS | Encounter Summary ---
Author Organization [facility] Address [address], [place] [address] Care Team Providers Care Wreath And Garland Maker Name Role Phone Found, No Pcp [...] on filedocumented in this encounter Care Teams Wreath And Garland Maker Relationship Specialty Start Date End Date Found, No Pcp, [address] [facility] [place] [address] PCP - General 07/05/23 documented as of this encounter
--- OUTSIDE RECORDS SUMMARY | 2024-04-25 18:12 | XMS_ITS | Encounter Summary ---
Author Organization [facility] Address [address] [address] Care Team Providers Care Regulatory Affairs Strategy Specialist Name Role Phone Found, No Pcp [...] filedocumented in this encounter Care Teams Regulatory Affairs Strategy Specialist Relationship Specialty Start Date End Date Found, No Pcp, [address] [place] [address] PCP - General 07/05/23 documented as of this encounter
--- OUTSIDE RECORDS SUMMARY | 2024-04-25 18:12 | XMS_ITS | Encounter Summary ---
Author Organization [facility] Address [address] [address] Care Team Providers Care Frame Expander Name Role Phone Found, No Pcp Primary [...] on filedocumented in this encounter Care Teams Frame Expander Relationship Specialty Start Date End Date Found, No Pcp, [address] [place] [address] PCP - General 07/05/23 documented as of this encounter
--- OUTSIDE RECORDS SUMMARY | 2024-04-25 18:12 | XMS_ITS | Encounter Summary ---
Author Organization [facility] Address [address] [address] Care Team Providers Care Division Controller Name Role Phone Found, No Pcp [...] on filedocumented in this encounter Care Teams Division Controller Relationship Specialty Start Date End Date Found, No Pcp, [address] [place] [address] PCP - General 07/05/23 documented as of this encounter
--- OUTSIDE RECORDS SUMMARY | 2024-04-25 18:12 | XMS_ITS | Encounter Summary ---
Author Organization [facility] Address [address] [address] Care Team Providers Care Pouncing Lathe Operator Name Role Phone Found, No Pcp [...] on filedocumented in this encounter Care Teams Pouncing Lathe Operator Relationship Specialty Start Date End Date Found, No Pcp, [address] [facility] [address] PCP - General 07/05/23 documented as of this encounter
--- OUTSIDE RECORDS SUMMARY | 2024-04-25 18:12 | XMS_ITS | Encounter Summary ---
Author Organization [facility] Address [address] [place] [address] Care Team Providers Care Sas Programmer Name Role Phone Found, No Pcp Primary Care Provider Unavailab le Encounter Details Date Type Department Care Team (Latest Contact Info) Description 01/15/1996 Orders Only Jarod Cooper MD [address] [place] [id number] Social History Tobacco Use Types Packs/Day Years Used Date Smoking Tobacco: Never Assessed Sex and Gender Information Value Date Recorded Sex Assigned at Not on file Gender Identity Not on file Sexual Orientation Not on file documented as of this encounter Plan of Treatment Not on file documented as of this encounter Visit Diagnoses Not on filedocumented in this encounter Care Teams Sas Programmer Relationship Specialty Start Date End Date Found, No PcpMD [address] [facility] [place] [address] PCP - General 07/05/23 documented as of this encounter
--- OUTSIDE RECORDS SUMMARY | 2024-04-25 18:12 | XMS_ITS | Encounter Summary ---
Author Organization [facility] Address [address], [place] [address] Care Team Providers Care Supervisor Lead Burning Name Role Phone Found, No Pcp Primary [...] filedocumented in this encounter Care Teams Supervisor Lead Burning Relationship Specialty Start Date End Date Found, No Pcp, [address] [facility] [address] PCP - General 07/05/23 documented as of this encounter
--- OUTSIDE RECORDS SUMMARY | 2024-04-25 18:12 | XMS_ITS | Referral Summary ---
Author Organization [facility] Address [address] [place] [address] Care Team Providers Care Strap Buckler Machine Name Role Phone Mp Brown Primary Care Provider [phone] Encounters Date Type Department Care Team Description 03/13/2024 Travel 03/13/2024 8:58 PM LICENSED HOME INSPECTOR - 03/13/2024 11:28 PM [facility] Emergency [facility] Emergency Dept [address] [place] [address] Itz Lino MD Nonspecific chest pain; Anxiety [...] on file Legal Sex Female 3:23 AM LICENSED HOME INSPECTOR Gender Identity Not on file Sexual Orientation Not on file Last Filed Vital Signs Vital Sign Reading Time Taken Comments Blood Pressure 157/88 03/13/2024 7:26 PM LICENSED HOME INSPECTOR Pulse 101 03/13/2024 7:26 PM LICENSED HOME INSPECTOR Temperature 36.7 C (98 F) 03/13/2024 7:26 PM LICENSED HOME INSPECTOR Respiratory Rate 18 03/13/2024 7:26 PM LICENSED HOME INSPECTOR Oxygen Saturation 97% 03/13/2024 7:26 PM LICENSED HOME INSPECTOR Inhaled Oxygen Concentration - - Weight 158.3 kg (348 lb 15.8 oz) 2022 12:27 PM CDT Height 175.3 cm (5' 9) 01/01/2023 12:2 7 PM CDT Body Mass Index 51.54 01/01/2023 12:27 PM CDT Plan of Treatment Not on file Procedures Procedure Name Priority Date/Time Associated Diagnosis Comments XR CHEST 2 VIEWS STAT 03/13/2024 10:0 0 PM LICENSED HOME INSPECTOR CBC WITH PLATELETS & DIFFERENTIAL STAT 03/13/2024 7:51 PM LICENSED HOME INSPECTOR EXTRA RED TOP TUBE STAT 03/13/2024 7: 51 PM LICENSED HOME INSPECTOR EXTRA BLUE TOP TUBE STAT 03/13/2024 7 :51 PM LICENSED HOME INSPECTOR CBC WITH PLATELETS AND DIFFERENTIAL STAT 03/13/2024 7:51 PM LICENSED HOME INSPECTOR EXTRA TUBE STAT 03/13/2024 7:51 PM LICENSED HOME INSPECTOR TROPONIN T, HIGH SENSITIVITY STAT 03/13/2024 7:51 PM LICENSED HOME INSPECTOR BASIC METABOLIC PANEL STAT 03/13/2024 7:51 PM LICENSED HOME INSPECTOR EKG 12-LEAD, TRACING ONLY STAT 03/13/2024 7:21 PM LICENSED HOME INSPECTOR EKG CARDIAC - HIM SCAN 03/13/2024 12:00 AM LICENSED HOME INSPECTOR from Last 3 Months Results * XR Chest 2 Views (03/13/2024 10:00 PM LICENSED HOME INSPECTOR) Anatomical Region Laterality Modality Chest Computed Radiogr aphy 03/13/2024 10:0 0 PM LICENSED HOME INSPECTOR Impressions 03/13/2024 10:12 PM LICENSED HOME INSPECTOR IMPRESSION: No acute cardiopulmonary or musculoskeletal abnormalities identified to explain patient's chest pain clinically. Moderate hypertrophic changes in the spine. Narrative 03/13/2024 10:12 PM LICENSED HOME INSPECTOR EXAM: XR CHEST 2 VIEWS LOCATION: [facility] DATE: 03/13/2024 INDICATION: cp COMPARISON: 01/01/2023 Procedure Note Lino Montes MD - 03/13/2024 EXAM: XR CHEST 2 VIEWS LOCATION: [facility] DATE: 03/13/2024 INDICATION: cp COMPARISON: 01/01/2023 IMPRESSION: No acute cardiopulmonary or musculoskeletal abnormalitiesidentified to explain patient's chest pain clinically. Moderatehypertrophic changes in the spine. us Itz Lino MD IMG DIAGNOSTIC IMAGING ORDERA BLES Final Result * Extra Red Top Tube (03/13/2024 7:51 PM LICENSED HOME INSPECTOR) Hold Specimen [facility] 03/13/2024 9:03 PM LICENSED HOME INSPECTOR [facility] Blood STRUCTURE OF LEFT HAND / Unknown Venipuncture / Unknown 03/13/2024 7:51 PM LICENSED HOME INSPECTOR 03/13/2024 7:57 PM LICENSED HOME INSPECTOR us Itz Lino MD LAB - BLOOD ORDERABLES Final Result [facility] [address] Lab (1st floor, no room number) [place] [address] * Extra Blue Top Tube (03/13/2024 7:51 PM LICENSED HOME INSPECTOR) Hold Specimen [facility] 03/13/2024 9:03 PM LICENSED HOME INSPECTOR [facility] Blood STRUCTURE OF LEFT HAND / Unknown Venipuncture / Unknown 03/13/2024 7:51 PM LICENSED HOME INSPECTOR 03/13/2024 7:56 PM LICENSED HOME INSPECTOR us Itz Lino MD LAB - BLOOD ORDERABLES Final Result [facility] [address] Lab (1st floor, no room number) [place] [address], [facility] * (ABNORMAL) CBC with platelets and differential (03/13/2024 7:51 PM LICENSED HOME INSPECTOR) [facility] Signature WBC Count 7.7 4.0 - 11.0 10e3/uL 03/13/2024 8:07 PM LICENSED HOME INSPECTOR [facility] RBC Count 5.19 3.80 - 5.20 10e6/uL 03/13/2024 8:07 PM LICENSED HOME INSPECTOR [facility] Hemoglobin 12.3 11.7 - 15.7 g/dL 03/13/2024 8:07 PM LICENSED HOME INSPECTOR [facility] Hematocrit 40.0 35.0 - 47.0 % 03/13/2024 8:07 PM LICENSED HOME INSPECTOR [facility] MCV 77(L) 78 - 100 fL 03/13/2024 8:07 PM LICENSED HOME INSPECTOR [facility] MCH 23.7(L) 26.5 - 33.0 pg 03/13/2024 8:07 PM LICENSED HOME INSPECTOR [facility] MCHC 30.8(L) 31.5 - 36.5 g/dL 03/13/2024 8:07 PM LICENSED HOME INSPECTOR [facility] RDW 15.6(H) 10.0 - 15.0 % 03/13/2024 8:07 PM LICENSED HOME INSPECTOR [facility] Platelet Count 288 150 - 450 10e3/uL 03/13/2024 8:07 PM LICENSED HOME INSPECTOR [facility] % Neutrophils 56 % 03/13/2024 8:07 PM LICENSED HOME INSPECTOR [facility] % Lymphocytes 33 % 03/13/2024 8:07 PM LICENSED HOME INSPECTOR [facility] % Monocytes 7 % 03/13/2024 8:07 PM LICENSED HOME INSPECTOR [facility] % Eosinophils 3 % 03/13/2024 8:07 PM LICENSED HOME INSPECTOR [facility] % Basophils 0 % 03/13/2024 8:07 PM LICENSED HOME INSPECTOR [facility] % Immature Granulocytes 0 % 03/13/2024 8:07 PM LICENSED HOME INSPECTOR [facility] NRBCs per 100 WBC 0 <1 /100 024 8:07 PM LICENSED HOME INSPECTOR [facility] Absolute Neutrophils 4.3 1.6 - 8.3 10e3/uL 03/13/2024 8:07 PM LICENSED HOME INSPECTOR [facility] Absolute Lymphocytes 2.5 0.8 - 5.3 10e3/uL 03/13/2024 8:07 PM LICENSED HOME INSPECTOR [facility] Absolute Monocytes 0.6 0.0 - 1.3 10e3/uL 03/13/2024 8:07 PM LICENSED HOME INSPECTOR [facility] Absolute Eosinophils 0.2 0.0 - 0.7 10e3/uL 03/13/2024 8:07 PM LICENSED HOME INSPECTOR [facility] Absolute Basophils 0.0 0.0 - 0.2 10e3/uL 03/13/2024 8:07 PM LICENSED HOME INSPECTOR [facility] Absolute Immature Granulocytes 0.0 <=0.4 10e3/uL 03/13/2024 8:07 PM LICENSED HOME INSPECTOR [facility] Absolute NRBCs 0.0 10e3/uL 03/13/2024 8:07 PM LICENSED HOME INSPECTOR [facility] Blood STRUCTURE OF LEFT HAND / Unknown Venipuncture / Unknown 03/13/2024 7:51 PM LICENSED HOME INSPECTOR 03/13/2024 7:56 PM LICENSED HOME INSPECTOR us Itz Lino MD LAB - BLOOD ORDERABLES Final Result LABORATORY [facility] Acute Care Lab [address] [facility] Lab (1st floor, no room number) [place] [address] * Troponin T, High Sensitivity (03/13/2024 7:51 PM LICENSED HOME INSPECTOR) [facility] Troponin T, High Sensitivity <6 <=14 ng/L 03/13/2024 8:36 PM LICENSED HOME INSPECTOR [facility] Comment: Either a High Sensitivity [...] Unknown Venipuncture / Unknown 03/13/2024 7:51 PM LICENSED HOME INSPECTOR 03/13/2024 7:56 PM LICENSED HOME INSPECTOR Itz Lino MD LAB - BLOOD ORDERABLES Final Result LABORATORY [facility] Acute Care Lab [address] Lab (1st floor, no room number) [place] [address], [facility] * (ABNORMAL) Basic metabolic panel (BMP) (03/13/2024 7:51 PM LICENSED HOME INSPECTOR) [facility] Sodium 137 135 - 145 mmol/L 03/13/2024 8:36 PM LICENSED HOME INSPECTOR LABORATORY Potassium 3.8 3.4 - 5.3 mmol/L 03/13/2024 8:36 PM LICENSED HOME INSPECTOR LABORATORY Chloride 102 98 - 107 mmol/L 03/13/2024 8:36 PM [facility] LABORATORY Carbon Dioxide (CO2) 20(L) 22 - 29 mmol/L 03/13/2024 8:36 PM [facility] Anion Gap 15 7 - 15 mmol/L 03/13/2024 8:36 PM [facility] Urea Nitrogen 14.6 8.0 - 23.0 mg/dL 03/13/2024 8:36 PM LICENSED HOME INSPECTOR LABORATORY Creatinine 0.70 0.51 - 0.95 mg/dL 03/13/2024 8:36 PM LICENSED HOME INSPECTOR LABORATORY GFR Estimate >90 >60 mL/min/1.7 3m2 03/13/2024 8:36 PM LICENSED HOME INSPECTOR LABORATORY Comment:eGFR calculated usin 2020 CKD-EPI equation. Calcium 9.5 8.8 - 10.4 mg/dL 03/13/2024 8:36 PM [facility] LABOR[facility]ORY Comment:Reference intervals for this test were updated on 10/05/2023 to reflect our healthy population more accurately. There may be differences in the flagging of prior results with similar values performed with this method. Those prior results can be interpreted in the context of the updated reference intervals. Glucose 180(H) 70 - 99 mg/dL 03/13/2024 8:36 PM LICENSED HOME INSPECTOR LABORATORY Blood STRUCTURE OF LEFT HAND / Unknown Venipuncture / Unknown 03/13/2024 7:51 PM LICENSED HOME INSPECTOR 03/13/2024 7:56 PM LICENSED HOME INSPECTOR Itz Lino MD LAB - BLOOD ORDERABLES Final Result [facility] Lab [address] Lab (1st floor, no room number) [place] [address] * EKG 12-lead, tracing only (03/13/2024 7:21 PM LICENSED HOME INSPECTOR) Systolic Blood Pressure mmHg RADIOLOGY RESULTS Diastolic Blood Pressure mmHg RADIOLOGY RESULTS Ventricular Rate 97 BPM RAD IOLOGY RESULTS Atrial Rate 97 BPM RADIOLOG Y RESULTS OK Interval 162 ms RADIOLOG Y RESULTS QRS Duration 88 ms RADIOLO GY RESULTS QT 360 ms RADIOLOGY RESULTS QTc 457 ms RADIOLOGY RESULTS P [place] 58 degrees RADIOLOGY RESULTS R AXIS 50 degrees RADIOLOGY RESULTS T [place] 50 degrees RADIOLOGY RESULTS Interpretation ECG Sinus rhythm Normal ECG No previous ECGs available Unconfirmed report - interpretation of this ECG is computer generated - see medical record for final interpretation Confirmed by - EMERGENCY ROOM, PHYSICIAN ([id number]), film editor MICHELINE SUTHERLAND ([id number]) on 03/14/2024 6:46:57 AM RADIOLOGY RESULTS 03/13/2024 7:21 PM LICENSED HOME INSPECTOR 03/14/2024 6:46 AM LICENSED HOME INSPECTOR Itz Lino MD ECG ORDERABLES Edited Result - Final Performing Organization Address [facility] Co de Phone Number RADIOLOGY RESULTS * EKG Cardiac - HIM Scan (03/13/2024 12:00 AM LICENSED HOME INSPECTOR) 03/13/2024 Provider Outside ECG ORDERABLES Final Result from Last 3 Months Insurance [facility] First Coverage [facility] Care Teams Strap Buckler Machine Relationship Specialty Start Date End Date [place] [address] [address] PCP - General 01/01/23
--- OUTSIDE RECORDS SUMMARY | 2024-04-25 18:12 | XMS_ITS | Encounter Summary ---
Author Organization [facility] Address [address] [address] Care Team Providers Care Car Rental Agency Manager Name Role Phone Found, No Pcp [...] filedocumented in this encounter Care Teams Car Rental Agency Manager Relationship Specialty Start Date End Date Found, No Pcp, [address] [place] [address] PCP - General 07/05/23 documented as of this encounter
[2024-04-25 18:43] VITALS: BP 132/67; PULSE 121; RESP 20; O2SAT 95
[2024-04-25 18:54] LABS: Appearance Urine Clear (Clear); Bilirubin Urine Negative (Negative); Blood Urine Negative (Negative); Color Urine Dark yellow (Yellow); Glucose Urine Negative (Negative); Ketones Urine Trace (Negative); Leukocyte Esterase Urine Negative (Negative); Nitrite Urine Negative (Negative); Protein Urine Negative (Negative); Urobilinogen Urine 0.2 (0.2-1.0)
[2024-04-25 19:01] LABS: RBC Urine 0-2 (0-2); Uric Acid Crystals Urine Few; WBC Urine 0-2 (0-5)
[2024-04-25] MEDS: 0.9 % SODIUM CHLORIDE 1000 ml 1,000 ML IV (19:03)
[2024-04-25] MEDS: KETOROLAC 30 MG/ML inj IVP (19:03)
[2024-04-25] MEDS: ONDANSETRON 2 MG/ML inj 4 MG IVP (19:04)
[2024-04-25 19:16] LABS: Basophils Absolute Auto 0.01 K/uL (0.00-0.30); Basophils Percent Auto 0.1 % (0.0-3.0); Eosinophils Absolute Auto 0.02 K/uL (0.00-0.50); Eosinophils Percent Auto 0.2 % (0.0-7.0); Hematocrit 41.5 % (33.0-51.0); Hemoglobin* 12.8 gm/dL (12.0-16.0); Immature Granulocytes Abs Auto 0.02 K/uL (0.00-0.30); Immature Granulocytes Pct Auto 0.2 %; Lymphocytes Percent Auto 7.9 % (20-44); Mean Corpuscular HGB Conc 31 gm/dL (32-36); Mean Corpuscular Hemoglobin 24 pg (26-34); Mean Corpuscular Volume 78 fL (80-100); Monocytes Percent Auto 5.5 % (0.0-11.0); Neutrophils Percent Auto 86.1 % (42.0-72.0); Platelet Count* 251 K/uL (140-440); RDW Coefficient of Variation % 15.5 % (11.5-15.5); Red Blood Count 5.35 m/uL (4.00-5.20); White Blood Count* 9.78 K/uL (4.50-11.00)
[2024-04-25 19:34] LABS: Slide Review Reflex No
[2024-04-25 19:49] VITALS: PULSE 113; RESP 20
[2024-04-25 19:49] LABS: Troponin I* < 0.01 ng/mL (0.01-0.04)
[2024-04-25 19:49] LABS: C Reactive Protein* 2.9 mg/dL (0.5-1.0)
[2024-04-25 20:57] VITALS: BP 148/66; PULSE 111; RESP 20; O2SAT 97
[2024-04-25] MEDS: HYDROCODONE-ACETAMIN 5-325 MG 1 TAB 2 TAB PO (20:59)
[2024-04-25] MEDS: cefTRIAXone 1 GM VIAL IM (20:59)
[2024-04-25] MEDS: LIDOCAINE 1% 5 ml (pf) 5 ML VIAL 2.1 ML IM (20:59)
[2024-04-25 21:07] VITALS: TEMP 36.8
[2024-04-25 21:19] VITALS: TEMP 36.3
== END 2024-04-25 21:23 | disposition home or self-care (01) ==
PROVIDERS: Emergency Provider Family Medicine; PCP Family Medicine
DX: R50.9 Fever, unspecified (principal); L03.116 Cellulitis of left lower limb
CPT/HCPCS: 36415; 81001; 84484; 85025; 86140; 87040; 87631; 96372; 96374; 96375; 99284; A9270; J0696; J1885; J2405; J7030

== ENCOUNTER 2024-09-22 15:46 | Observation (INO) | payer OTHER, SELFPAY ==
[2024-09-22] VITALS (13 sets, daily range): BP systolic 141–147; BP diastolic 74–94; PULSE 72–103; RESP 12–27; TEMP 35.7–36.7; O2SAT 92–100; BMI 47.2
--- OUTSIDE RECORDS SUMMARY | 2024-09-22 15:48 | XMS_ITS | Encounter Summary ---
Author Organization [facility] Address [address] [address] Care Team Providers Care Motor Grader Rough Grade Name Role Phone Found, No Pcp Primary Care Provider Unavailab le Encounter Details Date Type Department Care Team (Latest Contact Info) Description 07/16/1994 Orders Only Adele Garsia Social History Tobacco Use Types Packs/Day Years Used Date Smoking Tobacco: Never Assessed Comments Unknown Sex and Gender Information Value Date Recorded Sex Assigned at Not on file Legal Sex Female 4:07 AM CDT Gender Identity Not on file Sexual Orientation Not on file documented as of this encounter Plan of Treatment Not on file documented as of this encounter Visit Diagnoses Not on filedocumented in this encounter Care Teams Motor Grader Rough Grade Relationship Specialty Start Date End Date Found, No Pcp, [address] [place] [address] PCP - General 07/05/23 documented as of this encounter
--- OUTSIDE RECORDS SUMMARY | 2024-09-22 15:48 | XMS_ITS | Encounter Summary ---
Author Organization [facility] Address [address], [place] [address] Care Team Providers Care Dietary Worker Name Role Phone Found, No Pcp Primary Care Provider Unavailab le Encounter Details Date Type Department Care Team (Latest Contact Info) Description 08/12/1996 Orders Only Joshua Váz[place] [address] [place] [address] Social History Tobacco Use Types [...] on filedocumented in this encounter Care Teams Dietary Worker Relationship Specialty Start Date End Date Found, No Pcp, [address] [place] [address] PCP - General 07/05/23 documented as of this encounter
--- OUTSIDE RECORDS SUMMARY | 2024-09-22 15:48 | XMS_ITS | Encounter Summary ---
Author Organization [facility] Address [address] [address] Care Team Providers Care Global Manager Name Role Phone Found, No Pcp Primary Care Provider Unavailab le Encounter Details Date Type Department Care Team (Latest Contact Info) Description 05/01/1997 Orders Only Dasia aWyne DDS Social History Tobacco Use Types Packs/Day [...] on filedocumented in this encounter Care Teams Global Manager Relationship Specialty Start Date End Date Found, No Pcp, [address] [place] [address] PCP - General 07/05/23 documented as of this encounter
--- OUTSIDE RECORDS SUMMARY | 2024-09-22 15:48 | XMS_ITS | Encounter Summary ---
Author Organization [facility] Address [address] [place] [address] Care Team Providers Care Lens Polisher Name Role Phone Found, No Pcp Primary Care Provider Unavailab le Encounter Details Date Type Department Care Team (Latest Contact Info) Description 12/22/1997 Orders Only Nikhil Ceja MD [address] [place], [place] [id number] Social History Tobacco Use Types Packs/Day Years [...] on filedocumented in this encounter Care Teams Lens Polisher Relationship Specialty Start Date End Date Found, No Pcp, [address] [place] [address] PCP - General 07/05/23 documented as of this encounter
--- OUTSIDE RECORDS SUMMARY | 2024-09-22 15:48 | XMS_ITS | Encounter Summary ---
Author Organization [facility] Address [address], [place] [address] Care Team Providers Care Emergency Department Physician Name Role Phone Found, No Pcp Primary [...] filedocumented in this encounter Care Teams Emergency Department Physician Relationship Specialty Start Date End Date Found, No Pcp, [address] [place] [address] PCP - General 07/05/23 documented as of this encounter
--- OUTSIDE RECORDS SUMMARY | 2024-09-22 15:48 | XMS_ITS | Encounter Summary ---
Author Organization [facility] Address [address] [address] Care Team Providers Care Tool Rental Technician Name Role Phone Found, No Pcp [...] on filedocumented in this encounter Care Teams Tool Rental Technician Relationship Specialty Start Date End Date Found, No Pcp, [address] [place] [address] PCP - General 07/05/23 documented as of this encounter
--- OUTSIDE RECORDS SUMMARY | 2024-09-22 15:48 | XMS_ITS | Encounter Summary ---
Author Organization [facility] Address [address] [address] Care Team Providers Care Marketing Analytics Lead Name Role Phone Found, No Pcp Primary [...] filedocumented in this encounter Care Teams Marketing Analytics Lead Relationship Specialty Start Date End Date Found, No Pcp, [address] [place] [address] PCP - General 07/05/23 documented as of this encounter
--- OUTSIDE RECORDS SUMMARY | 2024-09-22 15:48 | XMS_ITS | Encounter Summary ---
Author Organization [facility] Address [address] [place] [address] Care Team Providers Care Blow Up Operator Name Role Phone Found, No Pcp Primary Care Provider Unavailab le Encounter Details Date Type Department Care Team (Latest Contact Info) Description 06/12/1999 Orders Only Inés Lozada MD [address] [place] [address] Social History Tobacco Use Types Packs/Day Years [...] on filedocumented in this encounter Care Teams Blow Up Operator Relationship Specialty Start Date End Date Found, No Pcp, [address] [place] [address] PCP - General 07/05/23 documented as of this encounter
--- OUTSIDE RECORDS SUMMARY | 2024-09-22 15:48 | XMS_ITS | Encounter Summary ---
Author Organization [facility] Address [address], [place] [address] Care Team Providers Care Shield Cleaner Name Role Phone Found, No Pcp Primary Care Provider Unavailab le Encounter Details Date Type Department Care Team (Latest Contact Info) Description 07/02/1994 [place] [address] [place] [address] Social History Tobacco Use Types [...] on filedocumented in this encounter Care Teams Shield Cleaner Relationship Specialty Start Date End Date Found, No Pcp, [address] [place] [address] PCP - General 07/05/23 documented as of this encounter
--- OUTSIDE RECORDS SUMMARY | 2024-09-22 15:48 | XMS_ITS | Encounter Summary ---
Author Organization [facility] Address [address] [address] Care Team Providers Care Insulation Hoseman Name Role Phone Found, No Pcp Primary [...] filedocumented in this encounter Care Teams Insulation Hoseman Relationship Specialty Start Date End Date Found, No Pcp, [address] [place] [address] PCP - General 07/05/23 documented as of this encounter
--- OUTSIDE RECORDS SUMMARY | 2024-09-22 15:48 | XMS_ITS | Encounter Summary ---
Author Organization [facility] Address [address] [address] Care Team Providers Care University Demonstrator Name Role Phone Found, No Pcp Primary [...] filedocumented in this encounter Care Teams University Demonstrator Relationship Specialty Start Date End Date Found, No Pcp, [address] [place] [address] PCP - General 07/05/23 documented as of this encounter
--- OUTSIDE RECORDS SUMMARY | 2024-09-22 15:48 | XMS_ITS | Encounter Summary ---
Author Organization [facility] Address [address], [place] [address] Care Team Providers Care Exhibit Preparator Name Role Phone Found, No Pcp Primary [...] on filedocumented in this encounter Care Teams Exhibit Preparator Relationship Specialty Start Date End Date Found, No Pcp, [address] [place] [address] PCP - General 07/05/23 documented as of this encounter
--- OUTSIDE RECORDS SUMMARY | 2024-09-22 15:48 | XMS_ITS | Encounter Summary ---
Author Organization [facility]ending [facility] to [facility] Address [address] [place] [address] Care Team Providers Care Electrode Cleaner Name Role Phone Found, No Pcp Primary Care Provider Unavailab le Encounter Details Date Type Department Care Team (Latest Contact Info) Description 08/17/1996 Orders Only Paulina Villegas MD [address] [facility] [address] [place] [address] Social History Tobacco Use Types [...] on filedocumented in this encounter Care Teams Electrode Cleaner Relationship Specialty Start Date End Date Found, No Pcp, [address] [place] [address] PCP - General 07/05/23 documented as of this encounter
--- OUTSIDE RECORDS SUMMARY | 2024-09-22 15:48 | XMS_ITS | Encounter Summary ---
Author Organization [facility] Address [address] [address] Care Team Providers Care Mill Hand Plate Mill Name Role Phone Found, No Pcp Primary [...] on filedocumented in this encounter Care Teams Mill Hand Plate Mill Relationship Specialty Start Date End Date Found, No Pcp, [address] [place] [address] PCP - General 07/05/23 documented as of this encounter
--- OUTSIDE RECORDS SUMMARY | 2024-09-22 15:48 | XMS_ITS | Encounter Summary ---
Author Organization [facility] Address [address] [place] [address] Care Team Providers Care Tube Filler Name Role Phone Found, No Pcp Primary Care Provider Unavailab le Encounter Details Date Type Department Care Team (Latest Contact Info) Description 06/30/1997 Orders Only Kyree Coronado MD [address] [place], [place] [id number] Social History Tobacco Use Types Packs/Day Years [...] on filedocumented in this encounter Care Teams Tube Filler Relationship Specialty Start Date End Date Found, No Pcp, [address] [place] [address] PCP - General 07/05/23 documented as of this encounter
--- OUTSIDE RECORDS SUMMARY | 2024-09-22 15:48 | XMS_ITS | Encounter Summary ---
Author Organization [facility] Address [address], [place] [address] Care Team Providers Care Network Admin Name Role Phone Found, No Pcp Primary Care Provider Unavailab le Encounter Details Date Type Department Care Team (Latest Contact Info) Description 07/06/1994 [place] [address] [facility] [place] [id number] Social History Tobacco Use Types Packs/Day Years [...] filedocumented in this encounter Care Teams Network Admin Relationship Specialty Start Date End Date Found, No Pcp, [address] [place] [address] PCP - General 07/05/23 documented as of this encounter
--- OUTSIDE RECORDS SUMMARY | 2024-09-22 15:48 | XMS_ITS | Encounter Summary ---
Author Organization [facility] Address [address], [place] [address] Care Team Providers Care Tubing Machine Tender Name Role Phone Found, No Pcp [...] on filedocumented in this encounter Care Teams Tubing Machine Tender Relationship Specialty Start Date End Date Found, No Pcp, [address] [place] [address] PCP - General 07/05/23 documented as of this encounter
--- OUTSIDE RECORDS SUMMARY | 2024-09-22 15:48 | XMS_ITS | Encounter Summary ---
Author Organization [facility] Address [address], [place] [address] Care Team Providers Care Mule Driver Name Role Phone Found, No Pcp [...] on filedocumented in this encounter Care Teams Mule Driver Relationship Specialty Start Date End Date Found, No Pcp, [address] [place] [address] PCP - General 07/05/23 documented as of this encounter
--- OUTSIDE RECORDS SUMMARY | 2024-09-22 15:48 | XMS_ITS | Encounter Summary ---
Author Organization [facility] Address [address], [place] [address] Care Team Providers Care Nozzleman Name Role Phone Found, No Pcp Primary [...] on filedocumented in this encounter Care Teams Nozzleman Relationship Specialty Start Date End Date Found, No Pcp, [address] [place] [address] PCP - General 07/05/23 documented as of this encounter
--- OUTSIDE RECORDS SUMMARY | 2024-09-22 15:49 | XMS_ITS | Clinical Summary ---
Author Organization [facility] Address [address] [place] [address] Care Team Providers Care Hydroelectric Plant Mechanical Engineer Name Role Phone Mp Brown DO Primary Care Provider [phone] Allergies No known active allergies Medications cyclobenzaprine [...] on file Legal Sex Female 3:23 AM PHYSICS TEACHER Gender Identity Not on file Sexual Orientation Not on file Last Filed Vital Signs Vital Sign Reading Time Taken Comments Blood Pressure 157/88 03/13/2024 7:26 PM PHYSICS TEACHER Pulse 101 03/13/2024 7:26 PM PHYSICS TEACHER Temperature 36.7 C (98 F) 03/13/2024 7:26 PM PHYSICS TEACHER Respiratory Rate 18 03/13/2024 7:26 PM PHYSICS TEACHER Oxygen Saturation 97% 03/13/2024 7:26 PM PHYSICS TEACHER Inhaled Oxygen Concentration - - Weight 158.3 [...] 1964 MAMMO SCREENING 1964 sDNA (Cologuard) 1964 LIPID 2004 PAP 04/15/2023 04/15/2020 COVID-19 VACCINE ( season) 2023 01/22/2023, 05/07/2022, 07/10/2021, Additional history exists PHQ-2 (once per calendar year) 2024 YEARLY PREVENTIVE VISIT 08/31/2024 09/01/19 24, 07/13/2022, 05/19/2021, Additional history exists INFLUENZA VACCINE (Season Ended) 2024 01/22/2023, 12/17/2021, 12/18/2020, Additional history exists COLONOSCOPY 12/29/2025 12/30/2015 COLORECTAL CANCER SCREENING 12/29/2025 DIABETES SCREENING 03/13/2027 03/13/2024 DTAP/TDAP/TD VACCINE (6 - Td or Tdap) 07/13/2032 07/13/2022, 01/02/2012, 12/23/2011, Additional history exists RSV VACCINE (1 - 1-dose 75+ series) 2039 HEPATITIS C SCREENING Completed 03/30/2019 ZOSTER VACCINE Completed 05/19/2021, 03/30/2019 PNEUMOCOCCAL VACCINE 50+ YEARS Completed 07/13/2022, 03/30/2019, 06/11/2000 HIV SCREENING Completed 09/01/2023 HPV VACCINE Aged Out No longer eligi ble based on patient's age to complete this topic MENINGITIS VACCINE Aged Out No longer eligible based on patient's age to complete this topic Procedures Procedure Name Priority Date/Time Associated Diagnosis Comments BASIC METABOLIC PANEL STAT 03/13/2024 7:51 PM PHYSICS TEACHER from Last 3 Months or Most Recently Relevant to Health Maintenance Results * (ABNORMAL) Basic metabolic panel (BMP) (03/13/2024 7:51 PM PHYSICS TEACHER) Sodium 137 135 - 145 mmol/L 03/13/2024 8:36 PM PHYSICS TEACHER LABORATORY Potassium 3.8 3.4 - 5.3 mmol/L 03/13/2024 8:36 PM PHYSICS TEACHER LABORATORY Chloride 102 98 - 107 mmol/L 03/13/2024 8:36 PM PHYSICS TEACHER LABORATORY Carbon Dioxide (CO2) 20(L) 22 - 29 mmol/L 03/13/2024 8:36 PM PHYSICS TEACHER LABORATORY Anion Gap 15 7 - 15 mmol/L 03/13/2024 8:36 PM PHYSICS TEACHER LABORATORY Urea Nitrogen 14.6 8.0 - 23.0 mg/dL 03/13/2024 8:36 PM PHYSICS TEACHER LABORATORY Creatinine 0.70 0.51 - 0.95 mg/dL 03/13/2024 8:36 PM PHYSICS TEACHER LABORATORY GFR Estimate >90 >60 mL/min/1.7 3m2 03/13/2024 8:36 PM PHYSICS TEACHER LABORATORY Comment:eGFR calculated usin 2020 CKD-EPI equation. Calcium 9.5 8.8 - 10.4 mg/dL 03/13/2024 8:36 PM PHYSICS TEACHER LABORATORY Comment:Reference intervals for this test were updated on 10/05/2023 to reflect our healthy population more accurately. There may be differences in the flagging of prior results with similar values performed with this method. Those prior results can be interpreted in the context of the updated reference intervals. Glucose 180(H) 70 - 99 mg/dL 03/13/2024 8:36 PM PHYSICS TEACHER LABORATORY Blood STRUCTURE OF LEFT HAND / Unknown Venipuncture / Unknown 03/13/2024 7:51 PM PHYSICS TEACHER 03/13/2024 7:56 PM PHYSICS TEACHER us Itz Lino MD LAB - BLOOD ORDERABLES Final Result LABORATORY [facility] [address] Lab (1st floor, no room number) [place] [address], [facility] from Last 3 Months or Most Recently Relevant to Health Maintenance [facility] Care Teams Hydroelectric Plant Mechanical Engineer Relationship Specialty Start Date End Date [place] [address] [address] PCP - General 01/01/23
--- OUTSIDE RECORDS SUMMARY | 2024-09-22 15:49 | XMS_ITS | Clinical Summary ---
Author Organization [facility] Address [address] [place] [address] Care Team Providers Care Loans Officer Name Role Phone Joann Brown DO Primary Care Provider [phone] Allergies No known active allergies Medications miscellaneous medical supply miscIndications:Foot pain, bilateral,Heel pain, bilateral,Diabetes mellitus type 2, uncontrolled, without complications As directed. Orthotic foot inserts - 1 pair 1 Each 019 Active lancets (Accu-Chek Softclix Lancets)Indications:Typ e 2 diabetes mellitus without complication, without long-term current use of insulin (HC) TEST DAILY 100 Each 3 021 Active blood-glucose meterIndications:Uncont rolled type 2 diabetes mellitus with hyperglycemia (HC) Dispense meter, test strips, lancets covered by pt ins. E11.9 NIDDM type II - Test 1 time/day 1 Each 021 Active blood sugar diagnostic (FreeStyle Test) stripIndications:Uncont rolled type 2 diabetes mellitus with hyperglycemia (HC) Dispense item covered by pt ins. E11.9 NIDDM type II - Test 1 time/day 100 Each 3 021 Active semaglutide (Rybelsus) 14 mg tabletIndications:Type 2 diabetes mellitus without complication, without long-term current use of insulin (HC) Take 14 mg by mouth once daily before a meal. 30 Tablet 11 024 Active Additional Information Patient not taking.Reason: stopped, Reported on 09/20/2024 nitrofurantoin macrocrystals/monohydra te (Macrobid) 100 mg capsuleIndications:Recu rrent UTI Take 1 Capsule (100 mg) by mouth every 12 hours. Use dose before intercourse and dose after intercourse 12 hours after first dose 60 Capsule 024 Active nystatin powder (Nystop) powderIndications:Yeast infection of the skin Apply topically to affected area(s) one time if needed (Topical yeast infection). 15 g 3 024 Active Eliquis 5 mg tabletIndications:New onset atrial fibrillation (HC) Take 1 Tablet (5 mg) by mouth two times daily. 180 Tablet 3 024 Active CPAPIndications:Obstruc tive sleep apnea RESMED CPAP (E0601) machine for home use at pressure: 5-15cmw, Choice of mask (A7030 or A7034) w/full face cushion (A7031) x1/mo, nasal cushion (A7032) x2/mo, or nasal pillows (A7033) x 2/mo; Length of Need: 99 months; Frequency of use: Daily 1 Each 024 Active hydroCHLOROthiazide 12.5 mg capsuleIndications:Esse ntial hypertension Take 1 Capsule (12.5 mg) by mouth once daily. 90 Capsule 4 025 Active rosuvastatin 10 mg tabletIndications:Pure hypercholesterolemia Take 1 Tablet (10 mg) by mouth at bedtime. 90 Tablet 3 025 Active metoprolol tartrate 100 mg tabletIndications:Essen tial hypertension Take 1 Tablet (100 mg) by mouth two times daily. 180 Tablet 3 025 Active levothyroxine 125 mcg tabletIndications:Hypot hyroidism, unspecified type Take 1 Tablet (125 mcg) by mouth before breakfast. 90 Tablet 3 025 Active lisinopriL 40 mg tabletIndications:Essen tial hypertension Take 1 Tablet (40 mg) by mouth once daily. 90 Tablet 3 025 Active pantoprazole 40 mg delayed-release tabletIndications:Gastr oesophageal reflux disease, unspecified whether esophagitis present Take 1 Tablet (40 mg) by mouth once daily. 90 Tablet 3 Active metFORMIN 750 mg Extended-Release tabletIndications:Type 2 diabetes mellitus with hyperglycemia, without long-term current use of insulin (HC) Take 1 Tablet (750 mg) by mouth once daily. 90 Tablet 3 Active tirzepatide (Mounjaro) 5 mg/0.5 mL penIndications:Type 2 diabetes mellitus with hyperglycemia, without long-term current use of insulin (HC) Inject 5 mg subcutaneous once weekly for 28 days. 2 mL 025 2024 Active tirzepatide (Mounjaro) 7.5 mg/0.5 mL penIndications:Type 2 diabetes mellitus with hyperglycemia, without long-term current use of insulin (HC) Inject 7.5 mg subcutaneous once weekly for 28 days. 2 mL 025 2024 Active pen tirzepatide (Mounjaro) 10 mg/0.5 mL penIndications:Type 2 diabetes mellitus with hyperglycemia, without long-term current use of insulin (HC) Inject 10 mg subcutaneous once weekly for 28 days. 2 mL 025 2024 Active tirzepatide (Mounjaro) 12.5 mg/0.5 mL penIndications:Type 2 diabetes mellitus with hyperglycemia, without long-term current use of insulin (HC) Inject 12.5 mg subcutaneous once weekly for 28 days. 2 mL 025 2024 Active tirzepatide (Mounjaro) 15 mg/0.5 mL penIndications:Type 2 diabetes mellitus with hyperglycemia, without long-term current use of insulin (HC) Inject 15 mg subcutaneous once weekly. 6 mL 3 025 Active LORazepam 1 mg tabletIndications:Insom dutch, idiopathic Take 1 Tablet (1 mg) by mouth at bedtime if needed for Anxiety or Sleep. 15 Tablet Active celecoxib 200 mg capsuleIndications:Oste oarthritis, unspecified osteoarthritis type, unspecified site Use 200 mg once daily as needed for pain 90 Capsule 3 Active Additional Information Patient not taking.Reason: stopped til prednisone is finished, Reported on 09/20/2024 clobetasol 0.05 % creamIndications:Dermat itis APPLY TOPICALLY TO THE AFFECTED AREA DAILY NEEDED 30 g 1 Active predniSONE 20 mg tabletIndications:Acute midline low back pain without sciatica Take 40mg (2 tablets) for 4 days followed by 20mg (1 tablet) for 4 days 12 Tablet 025 Active tiZANidine 4 mg tabletIndications:Acute midline low back pain with right-sided sciatica Take 1 Tablet (4 mg) by mouth every 8 hours if needed for Muscle Spasm. 15 Tablet Active tirzepatide (Mounjaro) 2.5 mg/0.5 mL penIndications:Type 2 diabetes mellitus with hyperglycemia, without long-term current use of insulin (HC) Inject 2.5 mg subcutaneous once weekly for 28 days. 2 mL 025 2024 methylPREDNISolone 4 mg tabletIndications:Acute midline low back pain with right-sided sciatica Take by mouth as instructed per packaging: take all tablets together with breakfast. 21 Tablet 025 2024 Discontin ued(*Myrna ent states no longer taking) tiZANidine 4 mg tabletIndications:Acute midline low back pain with right-sided sciatica Take 1 Tablet (4 mg) by mouth every 6 hours if needed for Muscle Spasm. 10 Tablet 025 2024 Discontin ued(Reord er (E-cancel not sent)) tiZANidine 4 mg tabletIndications:Acute midline low back pain with right-sided sciatica Take 1 Tablet (4 mg) by mouth every 8 hours if needed for Muscle Spasm. 15 Tablet 025 2024 Discontin ued(Reord er (E-cancel not sent)) Hospital, Clinic, or Other Facility Administered Medication Ordered Dose Route Frequency Start Date End Date Status ketorolac 30 mg injection (TORADOL)Indications:Acute midline low back pain without sciatica 30 mg IM ONE TIME 09/20/2024 09/20/2024 Ended Active Problems Problem Noted Date Diagnosed Date [...] Encounters Date Type Department Care Team Description 09/20/2024 3:05 PM CDT Office Visit [facility] [address] [facility] [place] [address] Anthony Camacho PA Hip Pain/problem (radiates into lower back , no numbness in back , no injury - started about 1 week ago ) 09/20/2024 Travel 09/20/2024 Nurse Triage [facility] [place] [address] [place] [address] Shaqra, Joann Arianna, DO Hip Pain/problem (right); Back Pain 09/18/2024 2:55 PM CDT Telemedicine [facility] [place] [address] [place] [address] Taylor Moreno PA Back Pain; Hip Pain/problem 09/18/2024 Travel 08/01/2024 Refill [facility] [place] [address] [place] [address] Shaqra, Joann Arianna, DO Refill Request (Clobetasol) 07/31/2024 Refill [facility] [place] [address] [place] [address] Shaqra, Joann Arianna, DO Refill Request; CELECOXIB 07/28/2024 9:20 AM CDT Office Visit [facility] [place] [address] [place] [address] Shaqra, Joann Arianna, DO Physical (59 year old ); Diabetes (3 month check - fasting BG 150-160); Medication Management (Review, renew - Lorazepam ) 07/28/2024 Travel 07/23/2024 Travel 07/17/2024 Refill [facility] [place] [address] [place] [address] Kevin, Joann Arianna, DO Refill Request (Levothyroxine) 07/16/2024 Refill [facility] [place] [address] [place] [address] Kevin, Joann Arianna, DO Refill Request (Levothyroxine) from Last 3 Months Immunizations Immunization Administration Dates Next Due COVID-19 VACCINE SPIKEVAX (M ODERNA 50MCG/0.5ML) 12YO+ PFS 07/28/2024,01/22/2023 COVID-19 vaccine (Chanyouji-Bio NTech 30mcg/0.3mL) 12YO+ BIVALENT PF, MDV 05/07/2022 COVID-19 vaccine (Chanyouji-Bio NTech 30mcg/0.3mL) 12YO+ BRUCE-SUCROSE PF, MDV 07/10/2021 COVID-19 vaccine (Chanyouji-Bio NTech 30mcg/0.3mL) PF, MDV 07/10/2021,12/16/2020,04/02/2020,2019 Hepatitis B [...] Comments No Known Problems Brother Hypertension Father Edin Le Lung cancer Father Edin Le Atrial fibrillation Sister Relation Name Status Comments Brother Father Edin Le Mother Alive Sister Social History Tobacco Use Types Packs/Day Years Used Date Smoking Tobacco: Never Smokeless Tobacco: Never Tobacco Cessation:Counseling Given: Yes Alcohol Use Standard Drinks/Week Comments Yes 0 (1 standard drink = 0.6 oz pur e alcohol) a couple times a year PHQ-2 Answer Date Recorded PHQ-2 TOTAL SCORE 0 07/28/2024 Social Connections Answer Date Recorded Do you [...] on file Legal Sex Female 5:45 AM SENIOR ACCOUNTS PAYABLE CLERK Gender Identity Not on file Sexual Orientation Not on file Occupation Industry Job Start Date Job End Date Not on file Not on file Not on file Not on file Travel History Travel Start Travel End [place] 09/07/2024 09/11/2024 Obstetrics History Para Term AB IAB SAB Ectopic Multiple Livin g Live Births 2 2 2 0 0 0 0 0 2 Date Outcome GA Total Labor Labor/2nd/3rd Weight Sex Type Anes PTL Arianna A1 A5 Name Clin Term Term Last Filed Vital Signs Vital Sign Reading Time Taken Comments Blood Pressure 144/88 09/20/2024 3:09 PM CDT Pulse 84 09/20/2024 3:09 PM CDT Temperature 37.2 C (98.9 F) 05/18/2024 3:30 PM SENIOR ACCOUNTS PAYABLE CLERK Respiratory Rate 20 05/18/2024 3:30 PM SENIOR ACCOUNTS PAYABLE CLERK Oxygen Saturation 98% 09/20/2024 3:09 PM CDT Inhaled Oxygen Concentration - - Weight 143.6 kg (316 lb 9.6 oz) 09/20/2024 3:09 PM CDT Height 173.7 cm (5' 8.39) 07/28/2024 9:28 AM CD T Body Mass Index 47.6 07/28/2024 9:28 AM CDT Plan of Treatment Upcoming Encounters Date Type Department Care Team (Late st Contact Info) Description 11/03/2024 10:30 AM CDT Office Visit [facility] [address] [address] [place] [address] [place] [address] 02/06/2025 8:30 AM SENIOR ACCOUNTS PAYABLE CLERK Office Visit [facility] [place] [address] [place] [address] Joann Brown DO [address] [place] [address] Health Maintenance Due Date Last Done Comments Mammogram for age 45-75 10/03/2021 10/04/19 21, 10/03/2019, 06/03/2018, Additional history exists Hepatitis B series for 19+ ( 2 of 3 - 19+ 3-dose series) 08/10/2022 07/13/2022 RSV vaccine for adults or (1 - Risk 60-74 years 1-dose series) 2024 Influenza Vaccine (#1) 2024 3, 12/17/2021, 12/18/2020, Additional history exists Pap test for age 21-65 04/15/2025 1, 04/15/2020, 03/18/2017, Additional history exists BMI (ht and wt on same day) for age 18+ 07/28/2025 07/28/2024, 09/10/2023, 09/01/2023, Additional history exists Depression screening for age 12+ 07/31/2025 07/31/2024, 07/28/2024, 05/19/2021, Additional history exists Colonoscopy through age 75 12/29/2025 12/30/2015, Lipids for age 45-75 07/28/2029 07/28/2024, 09/01/2023, 07/13/2022, Additional history exists Tetanus booster 07/13/2032 07/13/2022, 05/2011, 02/14/2007, Additional history exists Hepatitis C screening for ag e 18-79 Completed 03/30/2019 Zoster (shingles) series for age 50+ Completed 05/19/2021, 03/30/2019 Pneumococcal series for age 50+ Completed 07/13/2022, 03/30/2019, 06/11/2000 HIV for age 15-65 Completed 09/01/2023 COVID-19 vaccine series Completed 07/29/19, 01/22/2023, 05/07/2022, Additional history exists Procedures Procedure Name Priority Date/Time Associated Diagnosis Comments TSH Routine 07/28/2024 9:07 AM CDT Hypothyroidism, unspecified type BASIC METABOLIC PANEL Routine 07/28/2024 9:07 AM CDT Unspecified essential hypertension LIPID PANEL W REFLEX MEASURED LDL Routine 07/28/2024 9:07 AM CDT Pure hypercholesterolemia HEMOGLOBIN A1C MONITORING (POCT) Routine 07/28/2024 9:06 AM CDT Type 2 diabetes mellitus with hyperglycemia, without long-term current use of insulin (HC) ANTI HIV 1/2 Routine 09/01/2023 3:17 PM CDT Screening for HIV (human immunodeficiency virus) SCAN-MAMMOGRAPHY REPORT 10/03/2020 12:00 AM CDT JIRA DEVELOPER THIN PREP PAP SCREEN IMAGED Routine 04/15/2020 8:45 AM SENIOR ACCOUNTS PAYABLE CLERK Pap smear for cervical cancer screening ANTI HCV Routine 03/30/2019 12:27 PM SENIOR ACCOUNTS PAYABLE CLERK Need for hepatitis C screening test SCAN-COLONOSCOPY 12/30/2015 12:0 0 AM CDT from Last 3 Months or Most Recently Relevant to Health Maintenance Results * LIPID PANEL W REFLEX MEASURED LDL (07/28/2024 9:07 AM CDT) CHOLESTEROL, TOTAL 170 <200 mg/dL [facility] HDL CHOLESTEROL 75 > OR = 50 mg/dL [facility] TRIGLYCERIDES 146 <150 mg/dL [facility] LDL-CHOLESTEROL 72 mg/dL (calc) [facility] Comment: Reference range: <100 Desirable range <100 mg/dL for primary prevention; <70 mg/dL for patients with CHD or diabetic patients with > or = 2 CHD risk factors. LDL-C is now calculated using the Neville-Villarreal calculation, which is a validated novel method providing better accuracy than the Friedewald equation in the estimation of LDL-C. Neville SS et al. FRANCHESKA. 2013;310(19): 0018-1946 (http://education.MyEdu/faq/CAF539) CHOL/HDLC RATIO 2.3 <5.0 (calc) [facility] NON HDL CHOLESTEROL 95 <130 mg/dL (calc) [facility] Comment: For patients with diabetes plus 1 major ASCVD risk factor, treating to a non-HDL-C goal of <100 mg/dL (LDL-C of <70 mg/dL) is considered a therapeutic option. Blood BLOOD SPECIMEN / Unknown 07/28/2024 9:07 AM CDT 07/28/2024 9:07 AM CDT us Joann Brown DO CHEMISTRY Final Result [employer] [facility] [address] [place] [address], [facility] [address] [place] [address] * TSH (07/28/2024 9:07 AM CDT) [facility] TSH 1.13 0.40 - 4.50 mIU/L [facility] Blood BLOOD SPECIMEN / Unknown 07/28/2024 9:07 AM CDT 07/28/2024 9:07 AM CDT Joann Brown DO CHEMISTRY Final Result [employer] [facility] [address] [place] [phone], [facility] [address] [place] [phone] * (ABNORMAL) BASIC METABOLIC PANEL (07/28/2024 9:07 AM CDT) [facility] GLUCOSE 177(H) 65 - 99 mg/dL [facility] Comment: Fasting reference interval For someone without known diabetes, a glucose value >125 mg/dL indicates that they may have diabetes and this should be confirmed with a follow-up test. UREA NITROGEN (BUN) 22 7 - 25 mg/dL [facility] CREATININE 0.92 0.50 - 1.05 mg/dL [facility] EGFR 71 > OR = 60 mL/min/1. 73m2 [facility] BUN/CREATININE RATIO SEE NOTE: 6 - 22 (calc) [facility] Comment: Not Reported: BUN and Creatinine are within reference range. SODIUM 137 135 - 146 mmol/L [facility] POTASSIUM 4.3 3.5 - 5.3 mmol/L [facility] CHLORIDE 99 98 - 110 mmol/L [facility] CARBON DIOXIDE 27 20 - 32 mmol/L [facility] ELECTROLYTE BALANCE 11 7 - 17 mmol/L (calc) [facility] CALCIUM 9.4 8.6 - 10.4 mg/dL [facility] Blood BLOOD SPECIMEN / Unknown 07/28/2024 9:07 AM CDT 07/28/2024 9:07 AM CDT Joann Brown CHEMISTRY Final Result Performing Organization Address City[facility] Co de Phone Number [facility] [address] [place] [address], [facility] [address] [place] [address] * (ABNORMAL) HEMOGLOBIN A1C MONITORING (POCT) (07/28/2024 9:06 AM CDT) [facility] POC HEMOGLOBIN A1C 8.5(H) <6.0 % OF TOTAL HGB [facility] Comment: Any point of care results exhibiting inconsistency with the patient's clinical status should be repeated using a different testing method. Blood BLOOD SPECIMEN / Unknown 07/28/2024 9:06 AM CDT 07/28/2024 9:06 AM CDT Joann Brown CHEMISTRY Final Result Performing Organization Address [facility] Co de Phone Number [facility] [address] [place] [address], [place] [phone] [facility] [address] [place] [address] * ANTI HIV 1/2 [76801.0] (09/01/2023 3:17 PM CDT) Pathologist [facility] HIV-1/HIV-2 SCREEN Non-Reacti ve Non-Reacti ve 09/01/2023 11:34 PM CDT [facility] Comment:HIV-1 p24 and HIV-1/ HIV-2 Ab Not Detected. Blood BLOOD SPECIMEN / Unknown Venipuncture / Unknown 09/01/2023 3:17 PM CDT 09/01/2023 3:19 PM CDT us Joann Brown DO SEND OUTS Final Result [facility] [address] [place] [address], [place] * SCAN-MAMMOGRAPHY REPORT (10/03/2020 12:00 AM CDT) Anatomical Region Laterality Modality Other us Scanner OTHER Final Result * JIRA DEVELOPER THIN PREP PAP SCREEN IMAGED [[id number]] (04/15/2020 8:45 AM SENIOR ACCOUNTS PAYABLE CLERK) Case Report Gynecologic Cytology Report Case: [id number] Authorizing Provider: Sherrie Doyle MD Collected: 04/15/2020 0845 Ordering Location: [facility] Received: 04/15/2020 1020 Clinic First Screen: Giselle Alexandra Specimen: JIRA DEVELOPER ThinPrep Vial Screening, Cervical 04/23/2020 2:58 PM SENIOR ACCOUNTS PAYABLE CLERK [employer] ENTRAL LABORATORY INTERPRETATION/ RESULT NEGATIVE FOR INTRAEPITHELIAL LESION OR MALIGNANCY (NIL) (none) 04/23/2020 2:58 PM SENIOR ACCOUNTS PAYABLE CLERK [email or web address] at 1458 SENIOR ACCOUNTS PAYABLE CLERK SPECIMEN ADEQUACY Satisfactory for evaluation Endocervical component present 04/23/2020 2:58 PM SENIOR ACCOUNTS PAYABLE CLERK [employer] ENTRAL LABORATORY HPV REQUEST HPV and PAP 04/23/2020 2:58 PM SENIOR ACCOUNTS PAYABLE CLERK [email or web address] Date of LMP uncertain 04/23/2020 2:58 PM SENIOR ACCOUNTS PAYABLE CLERK [facility] Last Pap Date 03/18/17 04/23/2020 2:58 PM SENIOR ACCOUNTS PAYABLE CLERK [facility] Last Pap Result NIL 2:58 PM SENIOR ACCOUNTS PAYABLE CLERK [email or web address] Abnormal Pap or [place] Bx in last 5 years No 04/23/2020 2:58 PM SENIOR ACCOUNTS PAYABLE CLERK [employer] ENTRAL LABORATORY Menstrual Status Postmenopausal 04/23/2020 2:58 PM SENIOR ACCOUNTS PAYABLE CLERK [facility]TR[facility] LABORATORY [place] Bx Done Today No 04/23/2020 2:58 PM SENIOR ACCOUNTS PAYABLE CLERK [facility] Additional Information None given 04/23/2020 2:58 PM SENIOR ACCOUNTS PAYABLE CLERK [facility] Comment: Cytology is screened at [facility] - [address], [place] [address] and [facility] - [address], [place] [address] and [facility] - [address] [place] [address] Interpreted at [facility] - [address], [place] [address] Automated Review Successful 04/23/2020 2:58 PM SENIOR ACCOUNTS PAYABLE CLERK [facility] Comment:Specimen processed s uccessfully by automated hole digger truck driver device, ThinPrep Imaging System, [id number] ANCILLARY TESTING JIRA DEVELOPER HPV Ordered, Please see separate report 04/23/2020 2:58 PM SENIOR ACCOUNTS PAYABLE CLERK [facility] Note The pap test is a screening technique, not a diagnostic procedure. It is used primarily to screen for squamous cancers and precursor lesions. Published studies have shown that it is subject to both false negative and false positive results. The pap test should not be used as the sole means to diagnose or exclude pre-malignant and malignant lesions. 04/23/2020 2:58 PM SENIOR ACCOUNTS PAYABLE CLERK [facility] Other (Cervical) Non-Blood / Unknown 04/15/2020 8:45 AM SENIOR ACCOUNTS PAYABLE CLERK 04/15/2020 10:20 AM SENIOR ACCOUNTS PAYABLE CLERK Sherrie Doyle MD PATHOLOGY/CYTOLOGY Final Resu lt [facility] [address] [place] [address], [place] * ANTI HCV (03/30/2019 12:27 PM SENIOR ACCOUNTS PAYABLE CLERK) HEPATITIS C ANTIBODY Non-React chiquita Non-React chiquita 03/30/2019 7:09 PM SENIOR ACCOUNTS PAYABLE CLERK [facility] TR[facility] LABORAT[facility] Comment:Antibodies to HCV no t detected; does not exclude the possibility of exposure to HCV. Blood BLOOD SPECIMEN / Unknown Butterfly / Unknown 03/30/2019 12:27 PM SENIOR ACCOUNTS PAYABLE CLERK 03/30/2019 12:27 PM SENIOR ACCOUNTS PAYABLE CLERK us Sherrie Doyle MD SEND OUTS Final Result [facility]-CENTRAL LABORATORY [address] [place] [address], [place] * SCAN-COLONOSCOPY (12/30/2015 12:00 AM CDT) us Scanner OTHER Final Result from Last 3 Months or Most Recently Relevant to Health Maintenance [facility] on file Care Teams Loans Officer Relationship Specialty Start Date End Date [place] [address] PCP - General Family Practice 07/13/22
--- OUTSIDE RECORDS SUMMARY | 2024-09-22 15:49 | XMS_ITS | Encounter Summary ---
Author Organization [facility] Address [address] [address] Care Team Providers Care Manufacturing Assistant Name Role Phone Found, No Pcp [...] on filedocumented in this encounter Care Teams Manufacturing Assistant Relationship Specialty Start Date End Date Found, No Pcp, [address] [place] [address] PCP - General 07/05/23 documented as of this encounter
--- OUTSIDE RECORDS SUMMARY | 2024-09-22 15:49 | XMS_ITS | Encounter Summary ---
Author Organization [facility] Address [address], [place] [address] Care Team Providers Care Electric Locomotive Crane Operator Name Role Phone Found, No Pcp Primary Care Provider Unavailab le Encounter Details Date Type Department Care Team (Latest Contact Info) Description 01/15/1996 Orders Only Cure, Jarod Leong MD Social History Tobacco Use Types Packs/Day [...] on filedocumented in this encounter Care Teams Electric Locomotive Crane Operator Relationship Specialty Start Date End Date Found, No Pcp, [address] [place] [address] PCP - General 07/05/23 documented as of this encounter
--- OUTSIDE RECORDS SUMMARY | 2024-09-22 15:49 | XMS_ITS | Encounter Summary ---
Author Organization [facility] Address [address] [address] Care Team Providers Care Cargo Mate Name Role Phone Found, No Pcp Primary [...] on filedocumented in this encounter Care Teams Cargo Mate Relationship Specialty Start Date End Date Found, No Pcp, [address] [place] [address] PCP - General 07/05/23 documented as of this encounter
--- OUTSIDE RECORDS SUMMARY | 2024-09-22 15:49 | XMS_ITS | Encounter Summary ---
Author Organization [facility] Address [address] [place] [address] Care Team Providers Care Puller Through Name Role Phone Found, No Pcp Primary Care Provider Unavailab le Encounter Details Date Type Department Care Team (Late st Contact Info) Description 06/05/1995 Orders Only [facility] Scott Pedroza MD [address] [id number] Social History Tobacco Use Types Packs/Day Years [...] on filedocumented in this encounter Care Teams Puller Through Relationship Specialty Start Date End Date Found, No Pcp, [address] [place] [address] PCP - General 07/05/23 documented as of this encounter
--- OUTSIDE RECORDS SUMMARY | 2024-09-22 15:49 | XMS_ITS | Encounter Summary ---
Author Organization [facility] Address [address], [place] [address] Care Team Providers Care Storage Administrator Name Role Phone Found, No Pcp Primary Care Provider Unavailab le Encounter Details Date Type Department Care Team (Latest Contact Info) Description 07/02/1995 Orders Only Be Blum [facility] [id number] [facility], [address] Social History Tobacco Use Types Packs/Day [...] on filedocumented in this encounter Care Teams Storage Administrator Relationship Specialty Start Date End Date Found, No Pcp, [address] [place] [address] PCP - General 07/05/23 documented as of this encounter
--- OUTSIDE RECORDS SUMMARY | 2024-09-22 15:49 | XMS_ITS | Encounter Summary ---
Author Organization [facility] Address [address] [place] [address] Care Team Providers Care Professor Of Environmental Studies Name Role Phone Found, No Pcp Primary Care Provider Unavailab le Encounter Details Date Type Department Care Team (Latest Contact Info) Description 09/20/1995 Orders Only Kyree Coronado MD [address] [place], [place] [id number] Social History Tobacco Use Types Packs/Day Years [...] on filedocumented in this encounter Care Teams Professor Of Environmental Studies Relationship Specialty Start Date End Date Found, No Pcp, [address] [place] [address] PCP - General 07/05/23 documented as of this encounter
--- OUTSIDE RECORDS SUMMARY | 2024-09-22 15:49 | XMS_ITS | Encounter Summary ---
Author Organization [facility] Address [address], [place] [address] Care Team Providers Care Irrigator Head Name Role Phone Found, No Pcp Primary [...] on filedocumented in this encounter Care Teams Irrigator Head Relationship Specialty Start Date End Date Found, No Pcp, [address] [place] [address] PCP - General 07/05/23 documented as of this encounter
--- OUTSIDE RECORDS SUMMARY | 2024-09-22 15:49 | XMS_ITS | Encounter Summary ---
Author Organization [facility] Address [address], [place] [address] Care Team Providers Care Recreational Therapy Technician Name Role Phone Found, No Pcp [...] on filedocumented in this encounter Care Teams Recreational Therapy Technician Relationship Specialty Start Date End Date Found, No Pcp, [address] [place] [address] PCP - General 07/05/23 documented as of this encounter
--- OUTSIDE RECORDS SUMMARY | 2024-09-22 15:49 | XMS_ITS | Encounter Summary ---
Author Organization [facility] Address [address] [address] Care Team Providers Care Pleater Name Role Phone Found, No Pcp Primary [...] on filedocumented in this encounter Care Teams Pleater Relationship Specialty Start Date End Date Found, No Pcp, [address] [place] [address] PCP - General 07/05/23 documented as of this encounter
--- OUTSIDE RECORDS SUMMARY | 2024-09-22 15:49 | XMS_ITS | Encounter Summary ---
Author Organization [facility] Address [address], [place] [address] Care Team Providers Care Hand Hose Cutter Name Role Phone Found, No Pcp [...] filedocumented in this encounter Care Teams Hand Hose Cutter Relationship Specialty Start Date End Date Found, No Pcp, [address] [place] [address] PCP - General 07/05/23 documented as of this encounter
--- OUTSIDE RECORDS SUMMARY | 2024-09-22 15:49 | XMS_ITS | Encounter Summary ---
Author Organization [facility] Address [address], [place] [address] Care Team Providers Care Dip Lube Operator Name Role Phone Found, No Pcp [...] on filedocumented in this encounter Care Teams Dip Lube Operator Relationship Specialty Start Date End Date Found, No Pcp, [address] [place] [address] PCP - General 07/05/23 documented as of this encounter
--- OUTSIDE RECORDS SUMMARY | 2024-09-22 15:49 | XMS_ITS | Encounter Summary ---
[facility] Address [address] [address] Care Team Providers Care Welding Machine Feeder Name Role Phone Found, No Pcp Primary [...] on filedocumented in this encounter Care Teams Welding Machine Feeder Relationship Specialty Start Date End Date Found, No Pcp, [address] [place] [address] PCP - General 07/05/23 documented as of this encounter
--- OUTSIDE RECORDS SUMMARY | 2024-09-22 15:49 | XMS_ITS | Encounter Summary ---
Author Organization [facility] Address [address], [place] [address] Care Team Providers Care Lead Ramp Service Man Name Role Phone Found, No Pcp Primary [...] filedocumented in this encounter Care Teams Lead Ramp Service Man Relationship Specialty Start Date End Date Found, No Pcp, [address] [place] [address] PCP - General 07/05/23 documented as of this encounter
--- OUTSIDE RECORDS SUMMARY | 2024-09-22 15:49 | XMS_ITS | Encounter Summary ---
Author Organization [facility] Address [address], [place] [address] Care Team Providers Care Tent Worker Name Role Phone Found, No Pcp [...] on filedocumented in this encounter Care Teams Tent Worker Relationship Specialty Start Date End Date Found, No Pcp, [address] [place] [address] PCP - General 07/05/23 documented as of this encounter
--- OUTSIDE RECORDS SUMMARY | 2024-09-22 15:49 | XMS_ITS | Encounter Summary ---
Author Organization [facility] Address [address], [place] [address] Care Team Providers Care Research Physicist Name Role Phone Found, No Pcp Primary [...] on filedocumented in this encounter Care Teams Research Physicist Relationship Specialty Start Date End Date Found, No Pcp, [address] [place] [address] PCP - General 07/05/23 documented as of this encounter
--- OUTSIDE RECORDS SUMMARY | 2024-09-22 15:49 | XMS_ITS | Encounter Summary ---
Author Organization [facility] Address [address] [address] Care Team Providers Care Knockout Man Name Role Phone Found, No Pcp [...] on filedocumented in this encounter Care Teams Knockout Man Relationship Specialty Start Date End Date Found, No Pcp, [address] [place] [address] PCP - General 07/05/23 documented as of this encounter
--- OUTSIDE RECORDS SUMMARY | 2024-09-22 15:49 | XMS_ITS | Encounter Summary ---
Author Organization [facility] Address [address], [place] [address] Care Team Providers Care Conductor/Engineer Name Role Phone Found, No Pcp Primary [...] on filedocumented in this encounter Care Teams Conductor/Engineer Relationship Specialty Start Date End Date Found, No Pcp, [address] [place] [address] PCP - General 07/05/23 documented as of this encounter
--- OUTSIDE RECORDS SUMMARY | 2024-09-22 15:49 | XMS_ITS | Encounter Summary ---
Author Organization [facility] Address [address], [place] [address] Care Team Providers Care Ross Carrier Driver Name Role Phone Found, No Pcp [...] on filedocumented in this encounter Care Teams Ross Carrier Driver Relationship Specialty Start Date End Date Found, No Pcp, [address] [place] [address] PCP - General 07/05/23 documented as of this encounter
--- OUTSIDE RECORDS SUMMARY | 2024-09-22 15:49 | XMS_ITS | Clinical Summary ---
[facility] Address [address] [place] [address] Care Team Providers Care Director Of Women'S Services Name Role Phone Found, No Pcp MD Primary Care Provider Unavailab le Source Comments You are receiving this document as you are listed as the primary care provider,follow-up provider, or the patient has been referred to you for consultation.This is in compliance with the Medicare and[facility] Hospital[facility] EHR Incentive Program,which states Providers who transition their patient to another setting of careor provider of care or refers their patient to another provider of care shouldprovide summary care record for each transition of care or referral. Formerly [facility] Allergies No known active allergies Medications amLODIPine (NORVASC) 5 MG tablet Take 1 Tablet (5 mg) by mouth daily. 3 Active celecoxib (CELEBREX) 200 MG capsule Take 1 Capsule (200 mg) by mouth daily. 3 Active ibuprofen (MOTRIN) 600 MG tablet Take 1 Tablet (600 mg) by mouth every 8 hours. 3 Active levothyroxine (SYNTHROID) 125 MCG tablet Take 1 Tablet (125 mcg) by mouth daily. 3 Active lisinopril (ZESTRIL) 40 MG tablet Take 1 Tablet (40 mg) by mouth daily. 3 Active metFORMIN XR (GLUCOPHAGE XR) 750 MG 24 hour release tablet Take 1 Tablet (750 mg) by mouth daily. 3 Active metoprolol tartrate (LOPRESSOR) 100 MG tablet Take 1 Tablet (100 mg) by mouth two times a day. [address] (PROTONIX) 40 MG tablet Take 1 Tablet (40 mg) by mouth daily. 3 Active RYBELSUS 14 MG tablet Take 1 Tablet by mouth daily. 3 Active simvastatin (ZOCOR) 10 MG tablet Take 1 Tablet (10 mg) by mouth daily. 3 Active cyclobenzaprine (FLEXERIL) 10 MG tablet Take 1 Tablet (10 mg) by mouth three times a day as needed for Muscle Spasms. 30 Tablet 3 Active diclofenac (VOLTAREN) 75 MG enteric coated tablet Take 1 Tablet (75 mg) by mouth two times daily as needed. 30 Tablet 1 3 Active Additional Information Patient not taking.Reported on 03/13/2024 ELIQUIS 5 MG tablet Take 1 Tablet (5 mg) by mouth two times a day. Active dilTIAZem CD (CARDIZEM CD) 120 MG 24 hour release capsule Take 1 Capsule (120 mg) by mouth daily. 4 Active LORazepam (ATIVAN) 1 MG tablet Take 1 Tablet (1 mg) by mouth daily as needed. Active Immunizations Immunization Administration Dates Next Due PPSV23 (Pneumovax) 06/11/2000 Td 01/16/1998,03/20/1988 Varicella 11/07/1997(Deferred: Immune by Tj loredo) Social History Tobacco Use Types Packs/Day Years Used Date Smoking Tobacco: Never Smokeless Tobacco: Never Tobacco Cessation:Counseling Given: Not Answered Comments Unknown Sex and Gender Information Value Date Recorded Sex Assigned at Not on file Legal Sex Female 4:07 AM CDT Gender Identity Not on file Sexual Orientation Not on file Last Filed Vital Signs Vital Sign Reading Time Taken Comments Blood Pressure 148/79 03/13/2024 6:57 PM STOCKKEEPER Pulse 98 03/13/2024 6:57 PM STOCKKEEPER Temperature 36.8 C (98.3 F) 03/13/2024 6:57 PM STOCKKEEPER Respiratory Rate 18 03/13/2024 6:57 PM STOCKKEEPER Oxygen Saturation - - Inhaled Oxygen Concentration - - Weight 156.5 kg (345 lb) 05/14/2023 10:00 AM STOCKKEEPER Height 175.3 cm (5' 9) 05/14/2023 10:00 AM STOCKKEEPER Body Mass Index 50.95 05/14/2023 10:00 AM STOCKKEEPER Plan of Treatment Health Maintenance Due Date Last Done Comments Cervical Cancer Screening Due 1965 Colon Cancer Screening Plan Due 1965 Hep C Screening (Preventive Services) 1965 Mammogram 1965 Adult Preventive Visit 01/16/1999 01/16/1998 Cholesterol 2009 01/16/1998 COVID-19 Vaccine ( season) 2023 01/22/2023, 05/07/2022, 07/10/2021, Additional history exists RSV Vaccine (1 - Risk 60-74 years 1-dose series) 2024 Influenza Vaccine (#1) 2024 , 12/17/2021, 12/18/2020, Additional history exists DTaP/Tdap/Td Vaccine (5 - Tdap) 07/13/2032 07/13/2022, 01/02/2012, 12/23/2011, Additional history exists Zoster/Shingles Vaccine Completed 05/19/2021, 03/30 Pneumococcal Vaccine 50+ Yrs Completed , 03/30/2019, 06/11/2000 HIV Screening (Preventive Services) Completed 09/01/2023 HepA Vaccine Aged Out No longer eligi ble based on patient's age to complete this topic HepB Vaccine Aged Out No longer eligi ble based on patient's age to complete this topic Hib Vaccine Aged Out No longer eligi ble based on patient's age to complete this topic IPV (Polio) Vaccine Aged Out No longe r eligible based on patient's age to complete this topic MCV4 Vaccine Aged Out No longer eligi ble based on patient's age to complete this topic Meningococcal B Vaccine Aged Out No l onger eligible based on patient's age to complete this topic Procedures Procedure Name Priority Date/Time Associated Diagnosis Comments CHOLESTEROL (TOTAL) Routine 01/16/1998 1 1:49 AM STOCKKEEPER from Last 3 Months or Most Recently Relevant to Health Maintenance Results * (ABNORMAL) CHOLESTEROL (TOTAL) (01/16/1998 11:49 AM STOCKKEEPER) Cholesterol 238(H) <200 mg/dl [facility] Cholesterol Result should not be interpreted without the patient's history of cardiovascular risk factors. [place] 01/16/1998 11:4 9 AM STOCKKEEPER 01/16/1998 11:50 AM STOCKKEEPER us Emilio Dewey MD LAB_1 Final Result [facility] [id number] [id number] from Last 3 Months or Most Recently Relevant to Health Maintenance Insurance [address] [place] [id number] [employer] [facility] [place] [id number] Care Teams Director Of Women'S Services Relationship Specialty Start Date End Date Found, No Pcp, [address] [facility] [address] PCP - General 07/05/23
--- OUTSIDE RECORDS SUMMARY | 2024-09-22 15:49 | XMS_ITS | Encounter Summary ---
Author Organization [facility] Address [address] [address] Care Team Providers Care Liability Claims Representative Name Role Phone Found, No Pcp Primary Care Provider Unavailab le Encounter Details Date Type Department Care Team (Latest Contact Info) Description 06/02/1994 Orders Only Cure, Jarod Leong MD Social [...] on filedocumented in this encounter Care Teams Liability Claims Representative Relationship Specialty Start Date End Date Found, No Pcp, [address] [place] [address] PCP - General 07/05/23 documented as of this encounter
--- NOTE | 2024-09-22 15:51 | CRLHL7_ITS ---
For Patients: As a result of the Century Cures Act, medical imaging exams and procedure reports are released immediately into your electronic medical record. You may view this report before your referring provider. If you have questions, please contact your health care provider. INDICATION: Syncope. Hit head. TECHNIQUE: CT of the head without contrast. Coronal and sagittal reformats are included. COMPARISON: None. FINDINGS: No acute intracranial hemorrhage. No mass effect or midline shift. No hydrocephalus or extra-axial collections. White matter is within normal limits for age. No acute osseous abnormalities. Mastoid air cells and paranasal sinuses are clear. Right frontal scalp soft tissue swelling. IMPRESSION: IMPRESSION: 1. No acute intracranial abnormalities. Please note that all CT scans at this facility use dose modulation, iterative reconstruction, and/or weight-based dosing when appropriate to reduce radiation dose to as low as reasonably achievable. Dictated by Michele Galicia MD @ 09/22/2024 4:21:49 PM (Electronically Signed)
--- NOTE | 2024-09-22 16:23 | ED.GENADULT ---
HPI - General Adult General Date Seen: 09/22/24 Chief complaint: Fall/Minor Trauma Stated complaint: syncope Time Seen by Provider: 09/22/24 16:22 History of Present Illness HPI narrative: 59-year-old female with a history of type 2 diabetes, hypertension, hyperlipidemia, hypothyroidism, atrial fibrillation (on Eliquis), elevated BMI, sleep apnea, restless legs, osteoarthritis She reports that she has only had 1 episode of paroxysmal AFib but is on Eliquis for stroke prophylaxis. She has not had any trouble with palpitations or other known episodes of AFib recently. She has been having troubles with some low back pain and pain radiating to her right hip for the past couple of weeks. She is currently trying conservative management through her PCP at the [facility]. She is on a muscle relaxer. She took that muscle relaxer this morning and had not eaten breakfast. She was trying to do some ironing this morning when she started to feel lightheaded and presyncopal so she laid down. She got back up again and was again try to do some ironing. She started to feel lightheaded but before she could even get back to her bed she blacked out. She did not have any chest pain, shortness of breath, headache, palpitations, or other symptoms prior to fainting. She just felt lightheaded. When she came too she had fallen and struck her nose and the side of her head against the wall. She also injured her ribs, on both sides but perhaps more on the right than on the left. She also bumped her left knee which is scrapes and swollen but she does not think it is broken. She has been trying to rest home to get better but her ribs are hurting so much that she can not lay back in bed. It hurts to breathe but she is not really short of breath. She is not having blurry vision. No vomiting. She does have some mild neck pain on both sides more her neck just feels sore. She is also having upper abdominal pain. She decided come to the ER this afternoon. Per her ER nurses- she fainted this morning at about 9:00 a.m.. He had her head against the wall and has a bruise on the right side. She is also having right-sided chest and rib pain, left knee pain with an abrasion. Also a little bit of epistaxis which was easily treated at home. She does have some pre-existing back pain and is currently on muscle relaxers and took some of the muscle relaxers this morning before breakfast. Related Data Home Medications ?Medication ?Instructions ?Recorded ?Confirmed blood sugar diagnostic (Contour #10 ea 12/15/21 04/03/24 Next Test Strips) blood-glucose meter (Contour Next #1 ea 12/15/21 04/03/24 Meter) lancets (Microlet Lancet) #100 ea 12/15/21 04/03/24 levothyroxine 125 mcg tablet 125 mcg PO DAILY 12/15/21 04/03/24 lisinopril 40 mg tablet 40 mg PO DAILY 12/15/21 04/03/24 metoprolol tartrate 100 mg tablet 100 mg PO BID 12/15/21 04/03/24 metformin 750 mg tablet,extended 750 mg PO DAILY 11/03/22 04/03/24 release 24 hr celecoxib 200 mg capsule 200 mg PO DAILY PRN 09/21/23 04/03/24 diltiazem HCl 120 mg 120 mg PO DAILY 09/21/23 04/03/24 capsule,extended release 24 hr lorazepam 1 mg tablet 1 mg PO HS PRN 09/21/23 04/03/24 nitrofurantoin 100 mg PO Q12H PRN 09/21/23 04/03/24 monohydrate/macrocrystals 100 mg capsule (Macrobid) nystatin 100,000 unit/gram topical 1 applic topical DAILY PRN 09/21/23 04/03/24 powder (Nystop) pantoprazole 40 mg tablet,delayed 40 mg PO DAILY 09/21/23 04/03/24 release rosuvastatin 10 mg tablet 10 mg PO HS 09/21/23 04/03/24 semaglutide 14 mg tablet (Rybelsus) 14 mg PO DAILY 09/21/23 04/03/24 Previous Rx's ?Medication ?Instructions ?Recorded clobetasol 0.05 % topical cream 1 applic topical BID PRN itching 11/22/21 #15 grams apixaban 5 mg tablet 5 mg PO BID #60 tabs 08/09/23 Walker- 2 Wheels #1 ea 09/08/23 acetaminophen 500 mg capsule 500 - 1,000 mg (1 - 2 x 500 mg) PO 09/30/23 Q6H PRN pain #100 caps diazepam 5 mg tablet (Valium) 5 mg PO ONCE #2 tabs 12/03/23 Allergies Allergy/AdvReac Type Severity Reaction Status Date / Time No Known Drug Allergies Allergy Verified 09/22/24 15:58 PFSH PFSH Medical History Urinary tract infection, site not specified (02/14/07) ?N39.0 - Urinary tract infection, site not specified (ICD-10) Restless legs syndrome (RLS) (11/14/07) ?G25.81 - Restless legs syndrome (ICD-10) Pure hypercholesterolemia (02/14/07) ?E78.00 - Pure hypercholesterolemia, unspecified (ICD-10) Obesity (02/21/13) ?E66.9 - Obesity, unspecified (ICD-10) Obstructive sleep apnea ?G47.33 - Obstructive sleep apnea (adult) (pediatric) (ICD-10) Chronic osteoarthritis (10/04/12) ?M19.90 - Unspecified osteoarthritis, unspecified site (ICD-10) Gastroesophageal reflux (10/04/12) ?K21.9 - Gastro-esophageal reflux disease without esophagitis (ICD-10) Generalized anxiety disorder ?F41.1 - Generalized anxiety disorder (ICD-10) Hyperlipidemia (10/04/12) ?E78.5 - Hyperlipidemia, unspecified (ICD-10) Hypothyroidism (10/04/12) ?E03.9 - Hypothyroidism, unspecified (ICD-10) Primary hypertension (10/04/12) ?I10 - Essential (primary) hypertension (ICD-10) Type 2 diabetes mellitus ?E11.9 - Type 2 diabetes mellitus without complications (ICD-10) Dupuytren's contracture of left hand ?M72.0 - Palmar fascial fibromatosis [Dupuytren] (ICD-10) Left carpal tunnel syndrome ?G56.02 - Carpal tunnel syndrome, left upper limb (ICD-10) New onset atrial fibrillation (09/02/23) ?I48.91 - Unspecified atrial fibrillation (ICD-10) Surgical History Status post right knee replacement (09/30/23) ?Z96.651 - Presence of right artificial knee joint (ICD-10) Hx of cholecystectomy ?Z90.49 - Acquired absence of other specified parts of digestive tract (ICD-10) H/O section ?Z98.891 - History of uterine scar from previous surgery (ICD-10) History of arthroscopy of right knee (11/07/08) ?Z98.890 - Other specified postprocedural states (ICD-10) History of hysteroscopy (01/26/11) ?Z98.890 - Other specified postprocedural states (ICD-10) History of arthroscopy of left shoulder (10/12/12) ?Z98.890 - Other specified postprocedural states (ICD-10) History of arthroscopy of left knee (05/17/14) ?Z98.890 - Other specified postprocedural states (ICD-10) History of arthroscopy of right shoulder (02/21/15) ?Z98.890 - Other specified postprocedural states (ICD-10) Family History Sister Atrial fibrillation Father Lung cancer High blood pressure Social History What is your current living situation?: I presently have a place to live Problems where you live: no known problems Problems where you live details: n/a In the past 12 months, utilities in danger of being shut off: no In past 12 months, lack of transportation kept you from medical appts, meetings, work, or getting things needed for daily living: no In the past 12 mos, have been you worried that your food would run out before you had money to buy more?: never true In the past 12 mos, the food you bought just didn't last and you didn't have money to buy more?: never true Highest level of school completed/degree received: Bachelor's degree Smoking Status: Never smoker Do you use any of these nicotine containing products: None Second hand tobacco smoke exposure: No How often do you have a drink containing alcohol: monthly or less Alcohol type: beer How many standard drinks containing alcohol do you have on a typical day: 1 or 2 How often do you have six or more drinks on one occasion: Never AUDIT-C Alcohol total score: 1 Non-prescribed substance use: denies use Caffeine: Yes How often does anyone, including family, friends and others, physically hurt you: never How often does anyone, including family, friends and others, insult or talk down to you: never How often does anyone, including family, friends and others, threaten you with harm: never How often does anyone, including family, friends and others, scream or curse at you: never service: No Exam Narrative: Exam Narrative: Primary Survey: A- patent. Speaking clearly. Phonation normal. No stridor. B- breathing easily. Lung sounds clear and equal. Oxygen saturation normal on room air C- no active bleeding. Blood pressure stable. Symmetric pulses and cap refill in 4 extremities. D- alert and oriented x3. GCS 15. No focal deficits. Constitutional: Appears well-developed and well-nourished. Heavyset. Alert. Conversant. Very polite. Non toxic. HENT: Head: No depressed skull fracture, Raccoon Eyes, Vogt's sign, or hemotympanum. Face normal. TMs normal. Nose: Nose normal. Mouth/Throat: Oral mucosa is clear and moist. no trismus. Pharynx normal. Tonsils symmetric. No tonsillar enlargement, erythema, or exudate. Eyes: Conjunctivae normal. EOM normal. Pupils equal, round, and reactive to light. No scleral icterus. Neck: Normal range of motion. Neck supple. No tracheal deviation present. She does have cervical spine tenderness including the posterior neck without any definite point tenderness over the bones. No bony step-off. Cardiovascular: Normal rate, regular rhythm. No gallop. No friction rub. No murmur heard. Symmetric radial artery pulses . Normal cap refill. Pulmonary/Chest: Effort normal. No stridor. No respiratory distress. No wheezes. No rales. No rhonchi . Bilateral lower lateral and posterior ribcage tenderness. No bruising. No crepitus Abdominal: Soft. Bowel sounds normal. No distension. No mass. Bilateral upper quadrant tenderness. No rebound. No guarding. Musculoskeletal: RUE: Normal range of motion. No tenderness. No deformity LUE: Normal range of motion. No tenderness. No deformity RLE: Normal range of motion. No edema. No tenderness. No deformity LLE: Normal range of motion. No edema. No tenderness. No deformity Neurological: Mental status normal. Attention normal. Alert and oriented x3. GCS 15. Memory normal. Speech fluent. Cognition normal. Cranial Nerves intact II-XII except I did not formally test gag or visual acuity. EOMI. Palate elevates symmetrically and tongue protrudes in the midline. Strength: 5/5 trapezius on the right and left 5/5 deltoid on the right and left 5/5 biceps on the right and left 5/5 triceps on the right and left 5/5 microchip specialist on the right and left 5/5 thumb opposition on the right and left 5/5 finger abduction on the right and left 5/5 hip flexors (L3) on the right and left 5/5 quadriceps (L4) on the right and left 5/5 tibialis anterior on the right and left 5/5 EHL (L5) on the right and left 5/5 gastrocnemius (S1) on the right and left 5/5 hamstring on the right and left Sensation intact to light touch in both upper extremities (C4-T1) Sensation intact to light touch in Both lower extremities (L4-S1). Finger to nose and coordination normal. Skin: Skin is warm and dry. No rash noted. No pallor. Normal capillary refill. Psychiatric: Normal mood. Normal affect. Const: Vital Signs, click to edit/add: Vital Signs - 24 hr 09/22/24 15:52 09/22/24 21:29 09/22/24 21:30 Temperature 96.3 F L Pulse Rate 79 75 Pulse Rate [Pulse Oximeter] 103 H Respiratory Rate 14 15 12 Blood Pressure [Ri [facility] Upper Arm] 147/94 H Pulse Oximetry 96 98 98 Oxygen Delivery [facility] Room Air 09/22/24 21:45 09/22/24 22:00 09/22/24 22:15 Temperature Pulse Rate 80 73 73 Pulse Rate [Pulse Oximeter] Respiratory Rate 12 27 H Blood Pressure [[facility] Upper Arm] Pulse Oximetry 100 95 96 Oxygen Delivery [facility] 09/22/24 22:30 09/22/24 22:45 09/22/24 23:00 Temperature Pulse Rate 73 72 79 Pulse Rate [Pulse Oximeter] Respiratory Rate 14 Blood Pressure [Ri [facility] Upper Arm] Pulse Oximetry 98 98 97 Oxygen Delivery [facility] 09/22/24 23:15 Temperature Pulse Rate Pulse Rate [Pulse Oximeter] Respiratory Rate 26 H Blood Pressure [Ri ght Upper Arm] Pulse Oximetry 92 Oxygen Delivery Me thod Course Vital Signs Vital signs: Initial Vital Signs Temperature 96.3 F L 09/22/24 15:52 Temperature Source Temporal Artery Scan 09/22/24 15:52 Pulse Rate 103 H 09/22/24 15:52 Pulse Rhythm Regular 09/22/24 15:52 Respiratory Rate 14 09/22/24 15:52 Blood Pressure 147/94 H 09/22/24 15:52 Blood Pressure Mean 111 H 09/22/24 15:52 Blood Pressure Position Sitting 09/22/24 15:52 Pulse Oximetry 96 09/22/24 15:52 Oxygen Delivery Method Room Air 09/22/24 15:52 Vital Signs Temperature 96.3 F L 09/22/24 15:52 Pulse Rate 103 H 09/22/24 15:52 Respiratory Rate 14 09/22/24 15:52 Blood Pressure 147/94 H 09/22/24 15:52 Pulse Oximetry 96 09/22/24 15:52 Oxygen Delivery Method Room Air 09/22/24 15:52 Temperature 98.1 F 09/22/24 23:25 Pulse Rate 85 09/22/24 23:25 Respiratory Rate 18 09/22/24 23:25 Blood Pressure 141/74 H 09/22/24 23:25 Pulse Oximetry 96 09/22/24 23:43 Oxygen Delivery Method Room Air 09/22/24 23:25 Medications Administered Medications: Generic Name Dose Route Start Last Admin Trade Name Freq PRN Reason Stop Dose Admin Hydromorphone HCl 0.5 mg 09/22/24 16:40 09/22/24 21:45 Hydromorphone 0.5 Mg/0.5 Ml Inj IVP 0.5 mg Q1H PRN Administration Pain Sodium Chloride 1,000 mls @ 125 mls/hr 09/22/24 23:45 09/23/24 00:09 0.9 % Sodium Chloride 1000 Ml IV 125 mls/hr .Q8H RUBIN Administration Lidocaine 1 patch 09/22/24 23:45 09/23/24 00:10 Lidocaine 5% Patch TRANSDERMA 1 patch Q12H RUBIN Administration Protocol Lorazepam 1 - 2 mg 09/22/24 23:40 09/23/24 00:37 Lorazepam 1 Mg Tablet PO 1 mg Q6H PRN Administration Muscle Spasm Senna/Docusate Sodium 2 tab 09/23/24 09:00 09/23/24 00:08 Sennosides/Docusate Tablet PO 2 tab BID RUBIN Administration Discontinued Medications Generic Name Dose Route Start Last Admin Trade Name Freq PRN Reason Stop Dose Admin Dexamethasone 10 mg 09/22/24 23:45 09/23/24 00:09 Dexamethasone 10 Mg/Ml Pf IVP 09/22/24 23:46 10 mg ONCE ONE Administration Hydromorphone HCl 1 mg 09/22/24 22:54 09/22/24 23:12 Hydromorphone 0.5 Mg/0.5 Ml Inj IVP 09/22/24 22:55 1 mg ONCE ONE Administration Sodium Chloride 1,000 mls @ 1,000 mls/hr 09/22/24 16:45 09/22/24 18:30 0.9 % Sodium Chloride 1000 Ml IV 09/22/24 17:44 Infused .Q1H RUBIN Infusion Sodium Chloride 1,000 mls @ 1,000 mls/hr 09/22/24 20:15 09/22/24 21:25 0.9 % Sodium Chloride 1000 Ml IV 09/22/24 21:14 Infused .Q1H RUBIN Infusion Ondansetron HCl 4 mg 09/22/24 16:40 09/22/24 17:08 Ondansetron 2 Mg/Ml Inj IVP 09/22/24 16:41 4 mg ONCE ONE Administration Oxycodone HCl 5 mg 09/22/24 22:54 09/22/24 23:12 Oxycodone 1 Mg/Ml Oral Soln PO 09/22/24 22:55 5 mg ONCE ONE Administration Medical Decision Making MDM Narrative Medical decision making narrative: This patient presents for evaluation of a syncopal event that occurred this morning about 9:00 a.m.. Patient believes she probably fainted because she had not eaten breakfast she had taken her muscle relaxers this morning.. A broad differential was considered. History provided suggests a benign cause of syncope. No murmurs. She has a known history of AFib but did not have any palpitations or chest pain this morning.. Initial ECG shows normal sinus rhythm and no dysrhythmogenic abnormality such as WPW, prolonged QT, Brugada syndrome, and no ischemia. No symptoms/findings concerning for cardiac ischemia or ACS. We did check delta troponins and they are normal.. No headache or other neurologic symptoms to suggest subarachnoid , stroke . No reported seizure-like activity or postictal phase. environmental monitoring specialist while the patient here in the ER showed no dysrhythmia or ectopy. A broad differential diagnosis was considered including SVT, Atrial fibrillation, ventricular arrhythmia, thyroid disease, acute electrolyte abnormality, drugs/medications, medication side effect, anemia, heart disease, PE, among others. Based on clinical history it sounds like this is probably dehydration orthostasis but she does have history of AFib. From a tram a standpoint she is on Eliquis. Head CT is negative. C-spine CT is normal. Chest CT shows no signs of rib fracture or other intrathoracic injury.. Abdomen/pelvis CT shows no signs of acute traumatic injury.. Lab workup shows normal white count and normal hemoglobin. Platelet count is normal. Electrolytes are normal. Kidney function is mildly abnormal with a creatinine of 2.0 and a BUN of 49. Despite this kidney problem I did feel that the added benefit of contrast with CT scan was worth the risk of contrast nephropathy. I do note the creatinine is more than doubled since most recent creatinine from 2023. Unclear if this is an acute kidney injury the patient now has a chronic renal insufficiency. With elevated BUN to creatinine ratio would suspect probably dehydration. IV fluid bolus administered. Lactic acid is also elevated at 3.0. Repeat lactic acid normalized after fluid hers IV fluid. Repeat metabolic profile shows improvement of the creatinine down from 2.0 down to 1.7. Despite multiple rounds of IV Dilaudid she still has significant discomfort in her bilateral ribcage and back. We do not see any severe traumatic injury but she is not able to mobilize and discharged home. Discussed with our hospitalist, Dr. Bullock at approximately 11:00 p.m.. She accepts the patient in admission for obvious. She will be admitted for pain control, IV hydration for acute kidney injury, and further workup for the syncope. Lab Data Labs: Lab Results 09/22/24 09/22/24 09/22/24 Range/Units 17:00 18:01 21:42 WBC 10.27 (4.50-11.00) K/uL RBC 5.15 (4.00-5.20) m/uL Hgb 13.4 (12.0-16.0) gm/dL Hct 41.5 (33.0-51.0) % MCV 81 (80-100) fL MCH 26 (26-34) pg MCHC 32 (32-36) gm/dL RDW Coeff of [place] 16.5 H (11.5-15.5) % Plt Count 347 (140-440) K/uL Neut % (Auto) 82.8 H (42.0-72.0) % Lymph % (Auto) 12.2 L (20-44) % [place] % (Auto) 4.8 (0.0-11.0) % Eos % (Auto) 0.0 (0.0-7.0) % Baso % (Auto) 0.0 (0.0-3.0) % Neut # (Auto) 8.50 H (1.7-7.0) K/uL Lymph # (Auto) 1.30 (0.90-2.90) K/uL [place] # (Auto) 0.50 (0.00-0.90) K/UL Eos # (Auto) 0.00 (0.00-0.50) K/uL Baso # (Auto) 0.00 (0.00-0.30) K/uL Abs Immat Gran (auto) 0.02 (0.00-0.30) K/uL Imm/Tot Granulo (auto) 0.2 % Sodium 136 138 (135-149) mmol/L Potassium 4.5 4.2 (3.6-5.1) mmol/L Chloride 100 103 (96-114) mmol/L Carbon Dioxide 22 23 (20-32) mmol/L Anion Gap 14 12 (7-15) mEq/L BUN 49 H 43 H (7-30) mg/dL Creatinine 2.0 H 1.7 H (0.5-1.5) mg/dL Estimated Creat Clear 30.18 35.50 Estimated GFR 28 34 ml/min Glucose 271 H 125 H (60-115) mg/dL Lactate 3.0 H 1.2 (0.5-1.9) mmol/L Calcium 10.0 9.4 (8.4-10.6) mg/dL Total Bilirubin 0.6 (0.1-1.5) mg/dL AST 49 H (12-35) U/L ALT 34 (4-35) U/L Alkaline Phosphatase 85 (40-150) U/L Troponin I < 0.01 (0.01-0.04) ng/mL Total Protein 9.5 H (6.0-8.3) g/dL Albumin 5.0 (3.3-5.0) g/dL Urine Color Dark yellow (Yellow) Urine Appearance Cloudy A (Clear) Urine pH 5.0 (5.0-8.5) Ur Specific [place] >= 1.030 (1.000-1.030) Urine Protein 2+ A (Negative) Urine Glucose (UA) Negative (Negative) Urine Ketones Trace A (Negative) Urine Blood Trace-intact A (Negative) Urine Nitrite Negative (Negative) Urine Bilirubin Negative (Negative) Urine Urobilinogen 0.2 (0.2-1.0) Ur Leukocyte Esterase 1+ A (Negative) Urine RBC 0-2 (0-2) Urine WBC 2-5 (0-5) Ur Squamous Epith Cells Few (None-Few) Amorphous Sediment Moderate A (None) Urine Bacteria Few A (None) 09/22/24 Range/Units 23:10 WBC (4.50-11.00) K/uL RBC (4.00-5.20) m/uL Hgb (12.0-16.0) gm/dL Hct (33.0-51.0) % MCV (80-100) fL MCH (26-34) pg MCHC (32-36) gm/dL RDW Coeff of [place] (11.5-15.5) % Plt Count (140-440) K/uL Neut % (Auto) (42.0-72.0) % Lymph % (Auto) (20-44) % [place] % (Auto) (0.0-11.0) % Eos % (Auto) (0.0-7.0) % Baso % (Auto) (0.0-3.0) % Neut # (Auto) (1.7-7.0) K/uL Lymph # (Auto) (0.90-2.90) K/uL [place] # (Auto) (0.00-0.90) K/UL Eos # (Auto) (0.00-0.50) K/uL Baso # (Auto) (0.00-0.30) K/uL Abs Immat Gran (auto) (0.00-0.30) K/uL Imm/Tot Granulo (auto) % Sodium (135-149) mmol/L Potassium (3.6-5.1) mmol/L Chloride (96-114) mmol/L Carbon Dioxide (20-32) mmol/L Anion Gap (7-15) mEq/L BUN (7-30) mg/dL Creatinine (0.5-1.5) mg/dL Estimated Creat Clear Estimated GFR ml/min Glucose (60-115) mg/dL Lactate (0.5-1.9) mmol/L Calcium (8.4-10.6) mg/dL Total Bilirubin (0.1-1.5) mg/dL AST (12-35) U/L ALT (4-35) U/L Alkaline Phosphatase (40-150) U/L Troponin I < 0.01 (0.01-0.04) ng/mL Total Protein (6.0-8.3) g/dL Albumin (3.3-5.0) g/dL Urine Color (Yellow) Urine Appearance (Clear) Urine pH (5.0-8.5) Ur Specific [place] (1.000-1.030) Urine Protein (Negative) Urine Glucose (UA) (Negative) Urine Ketones (Negative) Urine Blood (Negative) Urine Nitrite (Negative) Urine Bilirubin (Negative) Urine Urobilinogen (0.2-1.0) Ur Leukocyte Esterase (Negative) Urine RBC (0-2) Urine WBC (0-5) Ur Squamous Epith Cells (None-Few) Amorphous Sediment (None) Urine Bacteria (None) Imaging Data CT scan - head: Attestation: I have reviewed the pertinent imaging results. Radiologist's impression: IMPRESSION: IMPRESSION: 1. No acute intracranial abnormalities. CT c spine: Attestation: I have reviewed the pertinent imaging results. Radiologist's impression: IMPRESSION: 1. No acute fracture or traumatic malalignment of the cervical spine. CT Chest/Ab/Pelvis: Attestation: I have reviewed the pertinent imaging results. Radiologist's impression: IMPRESSION: 1. No acute pathology or traumatic injury in the chest, abdomen or pelvis. 2. Colonic diverticulosis without diverticulitis. ECG Data Attestation: I personally reviewed and interpreted this ECG as follows: Interpretation: Normal sinus rhythm Rate: 89 NC: 158 QRS axis: Normal ST segment/T wave: No ST segment elevation or depression QTc: 459 Discharge Plan Discharge Patient Disposition: Admitted As Observation Condition: Stable
--- NOTE | 2024-09-22 16:39 | CRLHL7_ITS ---
For Patients: As a result of the Cures Act, medical imaging exams and procedure reports are released immediately into your electronic medical record. You may view this report before your referring provider. If you have questions, please contact your health care provider. INDICATION: Fall. Hit head. TECHNIQUE: CT of the cervical spine without contrast. Coronal and sagittal reformats are included. COMPARISON: None. FINDINGS: Fractures and other acute findings: None. Hardware: None. Spinal alignment: Within normal limits. Significant cervical spondylosis: Within normal limits. Paraspinal soft tissues and imaged lungs: Within normal limits. IMPRESSION: 1. No acute fracture or traumatic malalignment of the cervical spine. Please note that all CT scans at this facility use dose modulation, iterative reconstruction, and/or weight-based dosing when appropriate to reduce radiation dose to as low as reasonably achievable. Dictated by Michele Galicia MD @ 09/22/2024 7:27:03 PM (Electronically Signed)
--- NOTE | 2024-09-22 16:39 | CRLHL7_ITS ---
For Patients: As a result of the 21st Century Cures Act, medical imaging exams and procedure reports are released immediately into your electronic medical record. You may view this report before your referring provider. If you have questions, please contact your health care provider. INDICATION: Syncope on blood thinner. TECHNIQUE: CT chest, abdomen and pelvis acquired 120 cc Omnipaque 350 IV contrast. COMPARISON: None. FINDINGS: CHEST: Cardiovascular structures: Heart size is normal. Thoracic aorta and main pulmonary artery are normal in caliber. Left vertebral artery arises directly from the aortic arch, normal variant. No filling defects in the central pulmonary vasculature. No coronary vessel calcifications. Mediastinum and hemanth: No mass or adenopathy. No mediastinal hematoma. No hiatal hernia. Lungs and pleura: Lungs and pleural spaces are clear. No suspicious nodules, infiltrates, or effusions. Chest wall and axilla: No mass or adenopathy. Bones: No acute fractures. No aggressive appearing lytic or blastic osseous lesions. Multilevel degenerative changes of the spine. ABDOMEN AND PELVIS: Liver: Non cirrhotic morphology. No mass. Gallbladder and bile ducts: Cholecystectomy. No intrahepatic biliary ductal dilatation. CBD is dilated up to 1 cm with smooth distal tapering compatible with post cholecystectomy reservoir effect. Pancreas: No mass or inflammation. No pancreatic ductal dilatation. Spleen: Normal size. No lesion. Splenules. Adrenal glands: Unremarkable. Kidneys: Symmetric enhancement with no hydronephrosis or nephrolithiasis bilaterally. Subcentimeter cortical hypodensities are too small to characterize, statistically cysts. GI tract: Stomach is decompressed, limiting evaluation, but appears grossly normal. Small and large bowel is normal in caliber, without obstruction. Appendix is not well seen; however, no acute inflammatory signs of appendicitis. Colonic diverticulosis without diverticulitis. No pneumatosis, pneumoperitoneum or portal venous gas. Vascular structures: Abdominal aorta is normal in caliber, without aneurysm. No significant atherosclerotic disease. Patent portal, splenic and bilateral renal veins. Lymph nodes: Disease. No enlarged lymph nodes by size criteria. Peritoneum/Retroperitoneum/Abdominal Wall: Tiny fat containing umbilical hernia. No free air or significant free fluid. Pelvic Organs: Unremarkable. Bones and superficial soft tissues: No acute fractures. No aggressive appearing lytic or blastic osseous lesions. IMPRESSION: 1. No acute pathology or traumatic injury in the chest, abdomen or pelvis. 2. Colonic diverticulosis without diverticulitis. Please note that all CT scans at this facility use dose modulation, iterative reconstruction, and/or weight-based dosing when appropriate to reduce radiation dose to as low as reasonably achievable. Dictated by Shabana Molina MD @ 09/22/2024 7:37:43 PM (Electronically Signed)
[2024-09-22 17:07] LABS: Lactate* 3.0 mmol/L (0.5-1.9)
[2024-09-22] MEDS: ONDANSETRON 2 MG/ML inj 4 MG IVP (17:08)
[2024-09-22 17:12] LABS: Hematocrit 41.5 % (33.0-51.0); Hemoglobin* 13.4 gm/dL (12.0-16.0); Immature Granulocytes Abs Auto 0.02 K/uL (0.00-0.30); Immature Granulocytes Pct Auto 0.2 %; Mean Corpuscular HGB Conc 32 gm/dL (32-36); Mean Corpuscular Hemoglobin 26 pg (26-34); Mean Corpuscular Volume 81 fL (80-100); RDW Coefficient of Variation % 16.5 % (11.5-15.5); Red Blood Count 5.15 m/uL (4.00-5.20); White Blood Count* 10.27 K/uL (4.50-11.00)
[2024-09-22 17:23] LABS: Lymphocytes Absolute Auto 1.30 K/uL (0.90-2.90)
[2024-09-22 17:24] LABS: Albumin* 5.0 g/dL (3.3-5.0); Chloride* 100 mmol/L (96-114); Slide Review Reflex No
[2024-09-22 17:25] LABS: Potassium* 4.5 mmol/L (3.6-5.1); Sodium* 136 mmol/L (135-149)
[2024-09-22 17:27] LABS: Alanine Aminotransferase* 34 U/L (4-35); Anion Gap 14 mEq/L (7-15); Aspartate Amino Transferase* 49 U/L (12-35); Blood Urea Nitrogen* 49 mg/dL (7-30); Carbon Dioxide* 22 mmol/L (20-32); Creatinine* 2.0 mg/dL (0.5-1.5); Est. Creatinine Clearance* 30.18; Estimated Glomerular Filt Rate 28 ml/min
[2024-09-22 17:28] LABS: Alkaline Phosphatase* 85 U/L (40-150); Bilirubin Total* 0.6 mg/dL (0.1-1.5); Calcium* 10.0 mg/dL (8.4-10.6); Glucose* 271 mg/dL (60-115); Total Protein* 9.5 g/dL (6.0-8.3)
[2024-09-22 18:15] LABS: Appearance Urine Cloudy (Clear)
[2024-09-22 21:45] LABS: Lactate* 1.2 mmol/L (0.5-1.9)
[2024-09-22 22:00] LABS: Chloride* 103 mmol/L (96-114); Potassium* 4.2 mmol/L (3.6-5.1); Sodium* 138 mmol/L (135-149)
[2024-09-22 22:02] LABS: Blood Urea Nitrogen* 43 mg/dL (7-30); Creatinine* 1.7 mg/dL (0.5-1.5); Est. Creatinine Clearance* 35.50; Estimated Glomerular Filt Rate 34 ml/min
[2024-09-22 22:03] LABS: Anion Gap 12 mEq/L (7-15); Calcium* 9.4 mg/dL (8.4-10.6); Carbon Dioxide* 23 mmol/L (20-32); Glucose* 125 mg/dL (60-115)
--- NOTE | 2024-09-22 23:10 | PM.IMHP1 ---
Assessment and Plan Assessment and plan (1) Syncope and collapse: Problem comment: Work up in ER is consistent with dehydration and patient likely had orthostatic hypotension. -Monitor overnight on telemetry -Consider zio patch on discharge given a fib history -Continue with maintenance IVF Status: Acute (2) Acute kidney failure: Problem comment: BUN:Cr ratio suggestive of prerenal insult. Cr on arrival 2.0 (baseline less than 1), improved to 1.7 with IVF. Urine appears concentrated -Continue IVF -Avoid nephrotoxins -Repeat BMP in am Status: Acute (3) Traumatic injury of chest wall: Problem comment: Patient struck chest wall during syncopal episode. She is now having exacerbation of low thoracic/lumbar back pain with paraspinous mm spasms. Imaging does not reveal any fractures or subluxations. No hematoma identified. Requiring significant IV pain medication to maintain comfort, but not able to maintain pain control for long. -Continue pain control, attempt to utilize oral pain medications for longer lasting control -Lidoderm patch -IV morphine available -Trial ativan for muscle spasm -Will give one-time dose IV decadron Status: Acute (4) Type 2 diabetes mellitus: Problem comment: Patient reports only taking metformin and mounjaro for DMII. -Hold metformin -Accucheks and SSI while on steroids- anticipate hyperglycemia Status: Acute (5) Primary hypertension: Problem comment: Hold HCTZ with COLE, monitor BP Status: Acute (6) Hypothyroidism: Problem comment: Continue levothyroxine Status: Acute (7) Gastroesophageal reflux: Problem comment: Continue PPI Status: Acute (8) Chronic osteoarthritis: Status: Acute Hospitalist- H&P: HPI History of Present Illness Time Seen by Provider: 23:44 Date Seen: 09/22/24 Chief complaint: syncope Narrative: Fide Millan is a 59 year old female with PMH significant for restless legs, HLD, HTN, DMII, YOKO, paroxysmal a fib on anticoagulation, hypothyroidism, obesity and osteoarthritis who presented to the ER after a syncopal episode. Patient has been treating some low back pain exacerbation at home over the last few weeks with steroids and muscle relaxers and took medicine on an empty stomach. She has not had any red flag symptoms with her back pain (no loss of bowel or bladder control, no numbness or weakness of LE). She became lightheaded in an orthostatic pattern. When she was up at one point, she blacked out and when she awakened realized that she had hit her face, her chest wall and her knee. She felt lightheaded prior to event, but denied any chest pain or palpitations. She came to the ER with significant chest wall pain. In the ER, her workup is concerning for dehydration with tachycardia, concentrated urine, elevated lactate and COLE. She was given 2L of fluids which normalized her lactate and started to improve her COLE. Imaging was negative for any intracranial process or fracture. Her troponin was fortunately normal and EKG is normal. Despite multiple doses of IV narcotics, patient was still experiencing significant pain and will be admitted for cardiac monitoring with ongoing IVF and pain control. Review of Systems Status of ROS: Reports: 10 or more systems reviewed and unremarkable except as noted in History and below Medical Decision Making Medical Decision Making Has patient completed a Health Care Directive: No PFSH [facility] Medical History Urinary tract infection, site not specified (02/14/07) ?N39.0 - Urinary tract infection, site not specified (ICD-10) Restless legs syndrome (RLS) (11/14/07) ?G25.81 - Restless legs syndrome (ICD-10) Pure hypercholesterolemia (02/14/07) ?E78.00 - Pure hypercholesterolemia, unspecified (ICD-10) Obesity (02/21/13) ?E66.9 - Obesity, unspecified (ICD-10) Obstructive sleep apnea ?G47.33 - Obstructive sleep apnea (adult) (pediatric) (ICD-10) Chronic osteoarthritis (10/04/12) ?M19.90 - Unspecified osteoarthritis, unspecified site (ICD-10) Gastroesophageal reflux (10/04/12) ?K21.9 - Gastro-esophageal reflux disease without esophagitis (ICD-10) Generalized anxiety disorder ?F41.1 - Generalized anxiety disorder (ICD-10) Hyperlipidemia (10/04/12) ?E78.5 - Hyperlipidemia, unspecified (ICD-10) Hypothyroidism (10/04/12) ?E03.9 - Hypothyroidism, unspecified (ICD-10) Primary hypertension (10/04/12) ?I10 - Essential (primary) hypertension (ICD-10) Type 2 diabetes mellitus ?E11.9 - Type 2 diabetes mellitus without complications (ICD-10) Dupuytren's contracture of left hand ?M72.0 - Palmar fascial fibromatosis [Dupuytren] (ICD-10) Left carpal tunnel syndrome ?G56.02 - Carpal tunnel syndrome, left upper limb (ICD-10) New onset atrial fibrillation (09/02/23) ?I48.91 - Unspecified atrial fibrillation (ICD-10) Surgical History Status post right knee replacement (09/30/23) ?Z96.651 - Presence of right artificial knee joint (ICD-10) Hx of cholecystectomy ?Z90.49 - Acquired absence of other specified parts of digestive tract (ICD-10) H/O section ?Z98.891 - History of uterine scar from previous surgery (ICD-10) History of arthroscopy of right knee (11/07/08) ?Z98.890 - Other specified postprocedural states (ICD-10) History of hysteroscopy (01/26/11) ?Z98.890 - Other specified postprocedural states (ICD-10) History of arthroscopy of left shoulder (10/12/12) ?Z98.890 - Other specified postprocedural states (ICD-10) History of arthroscopy of left knee (05/17/14) ?Z98.890 - Other specified postprocedural states (ICD-10) History of arthroscopy of right shoulder (02/21/15) ?Z98.890 - Other specified postprocedural states (ICD-10) Family History Sister Atrial fibrillation Father Lung cancer High blood pressure Social History What is your current living situation?: I presently have a place to live Problems where you live: declined to answer In past 12 months, lack of transportation kept you from medical appts, meetings, work, or getting things needed for daily living: no In the past 12 mos, have been you worried that your food would run out before you had money to buy more?: never true In the past 12 mos, the food you bought just didn't last and you didn't have money to buy more?: never true Highest level of school completed/degree received: decline to answer Smoking Status: Never smoker Do you use any of these nicotine containing products: None Second hand tobacco smoke exposure: No How often do you have a drink containing alcohol: monthly or less Alcohol type: beer How many standard drinks containing alcohol do you have on a typical day: 1 or 2 How often do you have six or more drinks on one occasion: Never AUDIT-C Alcohol total score: 1 Non-prescribed substance use: denies use Caffeine: Yes How often does anyone, including family, friends and others, physically hurt you: never How often does anyone, including family, friends and others, insult or talk down to you: never How often does anyone, including family, friends and others, threaten you with harm: never How often does anyone, including family, friends and others, scream or curse at you: never service: No Meds Home Medications and Allergies Home Medications ?Medication ?Instructions ?Recorded ?Confirmed ?Type clobetasol 0.05 % topical cream 1 applic topical BID PRN itching 11/22/21 04/03/24 Rx #15 grams blood sugar diagnostic (Contour #10 ea 12/15/21 04/03/24 History Next Test Strips) blood-glucose meter (Contour Next #1 ea 12/15/21 04/03/24 History Meter) lancets (Microlet Lancet) #100 ea 12/15/21 04/03/24 History levothyroxine 125 mcg tablet 125 mcg PO DAILY 12/15/21 04/03/24 History lisinopril 40 mg tablet 40 mg PO DAILY 12/15/21 04/03/24 History metoprolol tartrate 100 mg tablet 100 mg PO BID 12/15/21 04/03/24 History metformin 750 mg tablet,extended 750 mg PO DAILY 11/03/22 04/03/24 History release 24 hr apixaban 5 mg tablet 5 mg PO BID #60 tabs 08/09/23 04/03/24 Rx Walker- 2 Wheels #1 ea 09/08/23 04/03/24 Rx celecoxib 200 mg capsule 200 mg PO DAILY PRN 09/21/23 04/03/24 History diltiazem HCl 120 mg 120 mg PO DAILY 09/21/23 04/03/24 History capsule,extended release 24 hr lorazepam 1 mg tablet 1 mg PO HS PRN 09/21/23 04/03/24 History nitrofurantoin 100 mg PO Q12H PRN 09/21/23 04/03/24 History monohydrate/macrocrystals 100 mg capsule (Macrobid) nystatin 100,000 unit/gram topical 1 applic topical DAILY PRN 09/21/23 04/03/24 History powder (Nystop) pantoprazole 40 mg tablet,delayed 40 mg PO DAILY 09/21/23 04/03/24 History release rosuvastatin 10 mg tablet 10 mg PO HS 09/21/23 04/03/24 History semaglutide 14 mg tablet (Rybelsus) 14 mg PO DAILY 09/21/23 04/03/24 History acetaminophen 500 mg capsule 500 - 1,000 mg (1 - 2 x 500 mg) PO 09/30/23 04/03/24 Rx Q6H PRN pain #100 caps diazepam 5 mg tablet (Valium) 5 mg PO ONCE #2 tabs 12/03/23 04/03/24 Rx Allergies Allergy/AdvReac Type Severity Reaction Status Date / Time No Known Drug Allergies Allergy Verified 09/22/24 15:58 Exam Narrative: Exam Narrative: General: Very uncomfortable appearing, sitting in chair HEENT: MMM Resp: Breathing is comfortable. CTAB CV: RRR, no m/g/r MSK: Bilateral lumbar paraspinous mm are taught/spastic Extremities: Edema of left LE (chronic lymphedema) Neuro: No focal deficits, no lateralizing deficits Const: Vital Signs, click to edit/add: Vital Signs - 24 hr 09/22/24 15:52 09/22/24 21:29 09/22/24 21:30 Temperature 96.3 F L Pulse Rate 79 75 Pulse Rate [Pulse Oximeter] 103 H Respiratory Rate 14 15 12 Blood Pressure [Ri ght Upper Arm] 147/94 H Pulse Oximetry 96 98 98 Oxygen Delivery Me thod Room Air 09/22/24 21:45 09/22/24 22:00 Temperature Pulse Rate 80 73 Pulse Rate [Pulse Oximeter] Respiratory Rate 12 Blood Pressure [Ri ght Upper Arm] Pulse Oximetry 100 95 Oxygen Delivery Me thod Hospitalist - H&P: Result Labs Labs: Short CBC 09/22/24 Range/Units 17:00 WBC 10.27 (4.50-11.00) K/uL Hgb 13.4 (12.0-16.0) gm/dL Hct 41.5 (33.0-51.0) % Plt Count 347 (140-440) K/uL BMP 09/22/24 09/22/24 17:00 21:42 Sodium 136 138 Potassium 4.5 4.2 Chloride 100 103 Carbon Dioxide 22 23 BUN 49 H 43 H Creatinine 2.0 H 1.7 H Glucose 271 H 125 H Calcium 10.0 9.4 Cardiac Enzymes 09/22/24 Range/Units 17:00 Troponin I < 0.01 (0.01-0.04) ng/mL Liver Function 09/22/24 Range/Units 17:00 Total Bilirubin 0.6 (0.1-1.5) mg/dL AST 49 H (12-35) U/L ALT 34 (4-35) U/L Alkaline Phosphatase 85 (40-150) U/L Albumin 5.0 (3.3-5.0) g/dL Urine 09/22/24 Range/Units 18:01 Urine Color Dark yellow (Yellow) Urine Appearance Cloudy A (Clear) Urine pH 5.0 (5.0-8.5) Ur Specific [place] >= 1.030 (1.000-1.030) Urine Protein 2+ A (Negative) Urine Glucose (UA) Negative (Negative) ECG ECG interpretation date: 09/22/24 Interpretation: Normal EKG. Normal sinus rhythm, no ectopy, no ST-segment changes Imaging CT Chest/Ab/Pelvis: Attestation: I have reviewed the pertinent imaging results. Radiologist's impression: [place] [address] Diagnostic Imaging Report Patient: Fide Millan MR#: [id number] : 1965 Acct:[id number] Loc: ED Service Date: 09/22/[address]: Ordering Physician: Lino Cochran M.D. Date of Service: 09/22/24 Procedure(s): CT chest abdomen pelv w con Accession Number(s): [id number] cc: Lino Cochran M.D.; Joann Brown D.O.~ For Patients: As a result of the Cures Act, medical imaging exams and procedure reports are released immediately into your electronic medical record. You may view this report before your referring provider. If you have questions, please contact your health care provider. INDICATION: Syncope on blood thinner. TECHNIQUE: CT chest, abdomen and pelvis acquired 120 cc Omnipaque 350 IV contrast. COMPARISON: None. FINDINGS: CHEST: Cardiovascular structures: Heart size is normal. Thoracic aorta and main pulmonary artery are normal in caliber. Left vertebral artery arises directly from the aortic arch, normal variant. No filling defects in the central pulmonary vasculature. No coronary vessel calcifications. Mediastinum and hemanth: No mass or adenopathy. No mediastinal hematoma. No hiatal hernia. Lungs and pleura: Lungs and pleural spaces are clear. No suspicious nodules, infiltrates, or effusions. Chest wall and axilla: No mass or adenopathy. Bones: No acute fractures. No aggressive appearing lytic or blastic osseous lesions. Multilevel degenerative changes of the spine. ABDOMEN AND PELVIS: Liver: Non cirrhotic morphology. No mass. Gallbladder and bile ducts: Cholecystectomy. No intrahepatic biliary ductal dilatation. CBD is dilated up to 1 cm with smooth distal tapering compatible with post cholecystectomy reservoir effect. Pancreas: No mass or inflammation. No pancreatic ductal dilatation. Spleen: Normal size. No lesion. Splenules. Adrenal glands: Unremarkable. Kidneys: Symmetric enhancement with no hydronephrosis or nephrolithiasis bilaterally. Subcentimeter cortical hypodensities are too small to characterize, statistically cysts. GI tract: Stomach is decompressed, limiting evaluation, but appears grossly normal. Small and large bowel is normal in caliber, without obstruction. Appendix is not well seen; however, no acute inflammatory signs of appendicitis. Colonic diverticulosis without diverticulitis. No pneumatosis, pneumoperitoneum or portal venous gas. Vascular structures: Abdominal aorta is normal in caliber, without aneurysm. No significant atherosclerotic disease. Patent portal, splenic and bilateral renal veins. Lymph nodes: Disease. No enlarged lymph nodes by size criteria. Peritoneum/Retroperitoneum/Abdominal Wall: Tiny fat containing umbilical hernia. No free air or significant free fluid. Pelvic Organs: Unremarkable. Bones and superficial soft tissues: No acute fractures. No aggressive appearing lytic or blastic osseous lesions. IMPRESSION: 1. No acute pathology or traumatic injury in the chest, abdomen or pelvis. 2. Colonic diverticulosis without diverticulitis. Please note that all CT scans at this facility use dose modulation, iterative reconstruction, and/or weight-based dosing when appropriate to reduce radiation dose to as low as reasonably achievable.
[2024-09-22] MEDS: OXYCODONE 1 MG/ML ORAL SOLN 5 MG PO (23:12)
[2024-09-23] MEDS: SENNOSIDES/DOCUSATE TABLET 2 TAB PO ×2 (00:08→09:20)
[2024-09-23] MEDS: DEXAMETHASONE 10 MG/ML PF IVP (00:09)
[2024-09-23] MEDS: LIDOCAINE 5% PATCH 1 PATCH TRANSDERMA (00:10)
[2024-09-23 02:08] VITALS: BMI 47.6
[2024-09-23 03:00] VITALS: BP 123/69; PULSE 86; RESP 20; TEMP 36.5; O2SAT 96
[2024-09-23 04:58] VITALS: BP 123/69; PULSE 86; RESP 20; TEMP 36.5; O2SAT 96
--- NOTE | 2024-09-23 05:37 | PC.NURSE ---
End of shift report: Pt arrived to the unit at 2325. Pt is pleasant and cooperative. Alert and oriented x4. VSS. Afebrile. Pt utilized home CPAP overnight. Patient rates pain a 7/10 in her mid back, prn pain meds offered and given. Lidocaine patch is intact on pts mid back. Bruise noted on right side of head, denies headache and dizziness. Bruise and small scrape on pts left knee, open to air. Orthostatics were ordered by MD, patient did not tolerate laying down due increased pain in that position. Pt tolerating sitting in chair throughout the night. Pt ambulates SBA to BR. Tele reads NSR. Call light within reach.?
[2024-09-23 06:13] LABS: Hematocrit 36.2 % (33.0-51.0); Hemoglobin* 11.4 gm/dL (12.0-16.0); Immature Granulocytes Abs Auto 0.01 K/uL (0.00-0.30); Immature Granulocytes Pct Auto 0.1 %; Mean Corpuscular HGB Conc 32 gm/dL (32-36); Mean Corpuscular Hemoglobin 26 pg (26-34); Mean Corpuscular Volume 83 fL (80-100); RDW Coefficient of Variation % 16.8 % (11.5-15.5); Red Blood Count 4.38 m/uL (4.00-5.20); White Blood Count* 8.73 K/uL (4.50-11.00)
[2024-09-23] MEDS: OMEPRAZOLE 20 MG CAPSULE DR 40 MG PO (06:17)
[2024-09-23] MEDS: LEVOTHYROXINE 125 MCG TABLET PO (06:17)
[2024-09-23 06:19] LABS: Lymphocytes Absolute Auto 1.00 K/uL (0.90-2.90); Slide Review Reflex No
[2024-09-23 06:24] LABS: Chloride* 104 mmol/L (96-114); Potassium* 4.5 mmol/L (3.6-5.1); Sodium* 137 mmol/L (135-149)
[2024-09-23 06:27] LABS: Anion Gap 11 mEq/L (7-15); Blood Urea Nitrogen* 43 mg/dL (7-30); Calcium* 9.0 mg/dL (8.4-10.6); Carbon Dioxide* 22 mmol/L (20-32); Creatinine* 1.7 mg/dL (0.5-1.5); Est. Creatinine Clearance* 35.50; Estimated Glomerular Filt Rate 34 ml/min; Glucose* 207 mg/dL (60-115)
[2024-09-23 07:00] VITALS: BP 137/83; PULSE 67; PULSE 82; RESP 16; TEMP 36.7; O2SAT 94
[2024-09-23] MEDS: ACETAMINOPHEN 500 MG TABLET 1000 MG PO (08:03)
[2024-09-23 08:20] VITALS: BP 137/83; PULSE 82
[2024-09-23 08:25] VITALS: BP 130/58; PULSE 94
[2024-09-23] MEDS: APIXABAN 5 MG TABLET PO (09:20)
[2024-09-23] MEDS: SODIUM CHLORIDE 0.9 % (FLUSH) 10 ML SYRINGE 5 ML IVF (09:20)
[2024-09-23] MEDS: METOPROLOL TARTRATE 100 MG TABLET PO (09:20)
--- NOTE | 2024-09-23 09:21 | P.DS_ITS ---
DS: Providers Provider Date Seen: 09/23/24 Date of admission: 09/22/24 23:17 Primary care physician: Joann Brown DO Admitting Clinician: Alejandra Cabrera MD Consults: 09/22/24 23:36 Consult to Occupational Therapy [CONS] Routine Comment: Reason(s) for OT Consult:: Evaluate and Treat Any Restrictions?:: No Restrictions Consult to Physical Therapy [CONS] Routine Comment: Reason(s) for PT Consult:: Evaluate and Treat Any Restrictions?:: No Restrictions Attending Physician on discharge: NASIM Silva, PAJaxC [place] [facility] Date of Discharge: 09/23/24 DS: Diagnosis Discharge Diagnosis (1) Syncope and collapse: Status: Acute Problem details: Work up in ER is consistent with dehydration and patient likely had orthostatic hypotension. -Monitor overnight on telemetry -Consider zio patch on discharge given a fib history -Continue with maintenance IVF Overnight, remains stable. Zio patch placed. Patient follow-up with PCP next week. (2) Acute kidney failure: Status: Acute Problem details: BUN:Cr ratio suggestive of prerenal insult. Cr on arrival 2.0 (baseline less than 1), improved to 1.7 with IVF. Urine appears concentrated -Continue IVF -Avoid nephrotoxins -Repeat BMP in am On day of discharge, creatinine 2.0 in ED -> 1.7 on admission -> 1.7. GFR stable at 34. BUN improved to 43. Continue with appropriate oral hydration. Recheck BMP with PCP in 2-3 days. (3) Traumatic injury of chest wall: Status: Acute Problem details: Patient struck chest wall during syncopal episode. She is now having exacerbation of low thoracic/lumbar back pain with paraspinous mm spasms. Imaging does not reveal any fractures or subluxations. No hematoma identified. R equiring significant IV pain medication to maintain comfort, but not able to maintain pain control for long. -Continue pain control, attempt to utilize oral pain medications for longer lasting control -Lidoderm patch -IV morphine available -Trial ativan for muscle spasm -Will give one-time dose IV decadron Discharged with oxycodone prn. Discussed scheduled Tylenol, ice/heat. Home with incentive spirometry. Will continue prednisone taper and prn flexeril from recent back pain care plan. Follow recommendations of PT and OT. No heavy lifting/pushing/pulling. (4) Type 2 diabetes mellitus: Status: Acute Problem details: Patient reports only taking metformin and mounjaro for DMII. -Hold metformin -Accucheks and SSI while on steroids- anticipate hyperglycemia (5) Primary hypertension: Status: Acute Problem details: Hold HCTZ with COLE, monitor BP Resume following discharge (6) Hypothyroidism: Status: Acute Problem details: Continue levothyroxine (7) Gastroesophageal reflux: Status: Acute Problem details: Continue PPI (8) Chronic osteoarthritis: Status: Acute Problem details: Chronic (9) Lumbar back pain: Status: Acute Problem details: Developed following a lengthy road trip. Was seen by PCP. Has been started on prednisone taper and Flexeril (09/20). Continue these at discharge. (10) Atrial fibrillation: Status: Acute Problem details: On chronic anticoagulation Imaging without evidence of acute bleed Continue metoprolol and apixaban Zio patch at discharge DS: Summary Hospital Course Hospital Course: Course of care and details as noted above. Syncopal episode in suspected setting of dehydration. This past week has been very hot and humid. Poor oral hydration take. Creatinine trending down. Kidney functions improving. Encouraged ongoing appropriate fluid intake. Zio patch placed. Syncopal episode resulting in chest wall trauma. PT and OT consulted. Currently on prednisone and Flexeril for low back pain. Oxycodone as needed has been added. Monitor for sedation, increased risk for falls. Close outpatient follow-up with PCP in 3-5 days. Status at Discharge Functional status at discharge: independent ambulation Overall status at discharge: patient is progressing back to baseline Time Spent with Patient Time attestation: Total time spent providing and/or coordinating discharge services: Time spent: Greater than 30 minutes Exam Narrative: Exam Narrative: PHYSICAL EXAM General: Pleasant, conversant, NAD Cardiovascular: RRR currently. No pitting edema Pulmonary: CTA bilaterally without rhonchi, rales, expiratory wheezes. No dyspnea Neurological: Alert, answering questions appropriately, cranial nerves intact, no focal findings Extremities: No gross joint deformity or swelling. AROMI. Neurovascularly intact Skin: Warm, dry. Const: Vital Signs, click to edit/add: Vital Signs - 24 hr 09/22/24 15:52 09/22/24 21:29 09/22/24 21:30 Temperature 96.3 F L Pulse Rate 79 75 Pulse Rate [Left R adial] Pulse Rate [Pulse Oximeter] 103 H Pulse Rate [Right Pulse Oximeter] Pulse Rate [orthos tatic sitting Puls e Oximeter] Pulse Rate [orthos tatic standing Pul se Oximeter] Respiratory Rate 14 15 12 Blood Pressure [Ri ght Arm] Blood Pressure [Ri ght Upper Arm] 147/94 H Blood Pressure [or thostatic sitting Left Arm] Blood Pressure [or thostatic standing Left Arm] Pulse Oximetry 96 98 98 Oxygen Delivery Co thod Room Air 09/22/24 21:45 09/22/24 22:00 09/22/24 22:15 Temperature Pulse Rate 80 73 73 Pulse Rate [Left R adial] Pulse Rate [Pulse Oximeter] Pulse Rate [Right Pulse Oximeter] Pulse Rate [orthos tatic sitting Puls e Oximeter] Pulse Rate [orthos tatic standing Pul se Oximeter] Respiratory Rate 12 27 H Blood Pressure [Ri ght Arm] Blood Pressure [Ri ght Upper Arm] Blood Pressure [or thostatic sitting Left Arm] Blood Pressure [or thostatic standing Left Arm] Pulse Oximetry 100 95 96 Oxygen Delivery Co thod 09/22/24 22:30 09/22/24 22:45 09/22/24 23:00 Temperature Pulse Rate 73 72 79 Pulse Rate [Left R adial] Pulse Rate [Pulse Oximeter] Pulse Rate [Right Pulse Oximeter] Pulse Rate [orthos tatic sitting Puls e Oximeter] Pulse Rate [orthos tatic standing Pul se Oximeter] Respiratory Rate 14 Blood Pressure [Ri ght Arm] Blood Pressure [Ri ght Upper Arm] Blood Pressure [or thostatic sitting Left Arm] Blood Pressure [or thostatic standing Left Arm] Pulse Oximetry 98 98 97 Oxygen Delivery Co thod 09/22/24 23:15 09/22/24 23:25 09/22/24 23:25 Temperature 98.1 F Pulse Rate Pulse Rate [Left R adial] 85 Pulse Rate [Pulse Oximeter] Pulse Rate [Right Pulse Oximeter] 85 Pulse Rate [orthos tatic sitting Puls e Oximeter] Pulse Rate [orthos tatic standing Pul se Oximeter] Respiratory Rate 26 H 18 18 Blood Pressure [Ri ght Arm] 141/74 H Blood Pressure [Ri ght Upper Arm] Blood Pressure [or thostatic sitting Left Arm] Blood Pressure [or thostatic standing Left Arm] Pulse Oximetry 92 97 97 Oxygen Delivery Co thod Room Air Room Air 09/22/24 23:25 09/22/24 23:25 09/22/24 23:43 Temperature 98.1 F Pulse Rate Pulse Rate [Left R adial] 85 Pulse Rate [Pulse Oximeter] Pulse Rate [Right Pulse Oximeter] Pulse Rate [orthos tatic sitting Puls e Oximeter] Pulse Rate [orthos tatic standing Pul se Oximeter] Respiratory Rate 18 18 Blood Pressure [Ri ght Arm] 141/74 H Blood Pressure [Ri ght Upper Arm] Blood Pressure [or thostatic sitting Left Arm] Blood Pressure [or thostatic standing Left Arm] Pulse Oximetry 97 96 96 Oxygen Delivery Co thod Room Air Room Air 09/22/24 23:51 09/23/24 03:00 09/23/24 04:58 Temperature 97.7 F 97.7 F Pulse Rate 73 Pulse Rate [Left R adial] Pulse Rate [Pulse Oximeter] Pulse Rate [Right Pulse Oximeter] 86 86 Pulse Rate [orthos tatic sitting Puls e Oximeter] Pulse Rate [orthos tatic standing Pul se Oximeter] Respiratory Rate 20 20 Blood Pressure [Ri ght Arm] 123/69 123/69 Blood Pressure [Ri ght Upper Arm] Blood Pressure [or thostatic sitting Left Arm] Blood Pressure [or thostatic standing Left Arm] Pulse Oximetry 96 96 [facility] 09/23/24 07:00 09/23/24 07:00 09/23/24 07:00 Temperature Pulse Rate 67 Pulse Rate [Left R adial] Pulse Rate [Pulse Oximeter] Pulse Rate [Right Pulse Oximeter] Pulse Rate [orthos tatic sitting Puls e Oximeter] Pulse Rate [orthos tatic standing Pul se Oximeter] Respiratory Rate 16 Blood Pressure [Ri ght Arm] Blood Pressure [Ri ght Upper Arm] Blood Pressure [or thostatic sitting Left Arm] Blood Pressure [or thostatic standing Left Arm] Pulse Oximetry 94 94 Oxygen Delivery Co thod Room Air 09/23/24 07:00 09/23/24 08:20 09/23/24 08:25 Temperature 98.0 F Pulse Rate Pulse Rate [Left R adial] Pulse Rate [Pulse Oximeter] Pulse Rate [Right Pulse Oximeter] 82 Pulse Rate [orthos tatic sitting Puls e Oximeter] 82 Pulse Rate [orthos tatic standing Pul se Oximeter] 94 Respiratory Rate 16 Blood Pressure [Ri ght Arm] 137/83 Blood Pressure [Ri ght Upper Arm] Blood Pressure [or thostatic sitting Left Arm] 137/83 Blood Pressure [or thostatic standing Left Arm] 130/58 L Pulse Oximetry 94 Oxygen Delivery Me thod Room Air DS: Data Data Completed and Pending Labs on day of discharge: Labs from last 24 hours 09/23/24 09/22/24 09/22/24 06:01 23:10 21:42 WBC 8.73 RBC 4.38 Hgb 11.4 L Hct 36.2 MCV 83 MCH 26 MCHC 32 RDW Coeff of Az[place] 16.8 H Plt Count 230 Neut % (Auto) 85.4 H Lymph % (Auto) 11.8 L [place] % (Auto) 2.7 Eos % (Auto) 0.0 Baso % (Auto) 0.0 Neut # (Auto) 7.50 H Lymph # (Auto) 1.00 [place] # (Auto) 0.20 Eos # (Auto) 0.00 Baso # (Auto) 0.00 Abs Immat Gran (auto) 0.01 Imm/Tot Granulo (auto) 0.1 Sodium 137 138 Potassium 4.5 4.2 Chloride 104 103 Carbon Dioxide 22 23 Anion Gap 11 12 BUN 43 H 43 H Creatinine 1.7 H 1.7 H Estimated Creat Clear 35.50 35.50 Estimated GFR 34 34 Glucose 207 H 125 H Lactate 1.2 Calcium 9.0 9.4 Total Bilirubin AST ALT Alkaline Phosphatase Troponin I < 0.01 Total Protein Albumin Urine Color Urine Appearance Urine pH Ur Specific Jenkins Urine Protein Urine Glucose (UA) Urine Ketones Urine Blood Urine Nitrite Urine Bilirubin Urine Urobilinogen Ur Leukocyte Esterase Urine RBC Urine WBC Ur Squamous Epith Cells Amorphous Sediment Urine Bacteria 09/22/24 09/22/24 18:01 17:00 WBC 10.27 RBC 5.15 Hgb 13.4 Hct 41.5 MCV 81 MCH 26 MCHC 32 RDW Coeff of [place] 16.5 H Plt Count 347 Neut % (Auto) 82.8 H Lymph % (Auto) 12.2 L [place] % (Auto) 4.8 Eos % (Auto) 0.0 Baso % (Auto) 0.0 Neut # (Auto) 8.50 H Lymph # (Auto) 1.30 [place] # (Auto) 0.50 Eos # (Auto) 0.00 Baso # (Auto) 0.00 Abs Immat Gran (auto) 0.02 Imm/Tot Granulo (auto) 0.2 Sodium 136 Potassium 4.5 Chloride 100 Carbon Dioxide 22 Anion Gap 14 BUN 49 H Creatinine 2.0 H Estimated Creat Clear 30.18 Estimated GFR 28 Glucose 271 H Lactate 3.0 H Calcium 10.0 Total Bilirubin 0.6 AST 49 H ALT 34 Alkaline Phosphatase 85 Troponin I < 0.01 Total Protein 9.5 H Albumin 5.0 Urine Color Dark yellow Urine Appearance Cloudy A Urine pH 5.0 Ur Specific Jenkins >= 1.030 Urine Protein 2+ A Urine Glucose (UA) Negative Urine Ketones Trace A Urine Blood Trace-intact A Urine Nitrite Negative Urine Bilirubin Negative Urine Urobilinogen 0.2 Ur Leukocyte Esterase 1+ A Urine RBC 0-2 Urine WBC 2-5 Ur Squamous Epith Cells Few Amorphous Sediment Moderate A Urine Bacteria Few A Preliminary micro results at discharge 09/22/24 18:01 Urine Culture - Preliminary Urine,Clean Catch Culture in Progress Imaging CT Chest/Ab/Pelvis: Attestation: I have reviewed the pertinent imaging results. Radiologist's impression: CHEST: Cardiovascular structures: Heart size is normal. Thoracic aorta and main pulmonary artery are normal in caliber. Left vertebral artery arises directly from the aortic arch, normal variant. No filling defects in the central pulmonary vasculature. No coronary vessel calcifications. Mediastinum and hemanth: No mass or adenopathy. No mediastinal hematoma. No hiatal hernia. Lungs and pleura: Lungs and pleural spaces are clear. No suspicious nodules, infiltrates, or effusions. Chest wall and axilla: No mass or adenopathy. Bones: No acute fractures. No aggressive appearing lytic or blastic osseous lesions. Multilevel degenerative changes of the spine. ABDOMEN AND PELVIS: Liver: Non cirrhotic morphology. No mass. Gallbladder and bile ducts: Cholecystectomy. No intrahepatic biliary ductal dilatation. CBD is dilated up to 1 cm with smooth distal tapering compatible with post cholecystectomy reservoir effect. Pancreas: No mass or inflammation. No pancreatic ductal dilatation. Spleen: Normal size. No lesion. Splenules. Adrenal glands: Unremarkable. Kidneys: Symmetric enhancement with no hydronephrosis or nephrolithiasis bilaterally. Subcentimeter cortical hypodensities are too small to characterize, statistically cysts. GI tract: Stomach is decompressed, limiting evaluation, but appears grossly normal. Small and large bowel is normal in caliber, without obstruction. Appendix is not well seen; however, no acute inflammatory signs of appendicitis. Colonic diverticulosis without diverticulitis. No pneumatosis, pneumoperitoneum or portal venous gas. Vascular structures: Abdominal aorta is normal in caliber, without aneurysm. No significant atherosclerotic disease. Patent portal, splenic and bilateral renal veins. Lymph nodes: Disease. No enlarged lymph nodes by size criteria. Peritoneum/Retroperitoneum/Abdominal Wall: Tiny fat containing umbilical hernia. No free air or significant free fluid. Pelvic Organs: Unremarkable. Bones and superficial soft tissues: No acute fractures. No aggressive appearing lytic or blastic osseous lesions. IMPRESSION: 1. No acute pathology or traumatic injury in the chest, abdomen or pelvis. 2. Colonic diverticulosis without diverticulitis. CT C-spine: Attestation: I have reviewed the pertinent imaging results. Radiologist's impression: Fractures and other acute findings: None. Hardware: None. Spinal alignment: Within normal limits. Significant cervical spondylosis: Within normal limits. Paraspinal soft tissues and imaged lungs: Within normal limits. IMPRESSION: 1. No acute fracture or traumatic malalignment of the cervical spine. CT scan - head: Attestation: I have reviewed the pertinent imaging results. Radiologist's impression: No acute intracranial hemorrhage. No mass effect or midline shift. No hydrocephalus or extra-axial collections. White matter is within normal limits for age. No acute osseous abnormalities. Mastoid air cells and paranasal sinuses are clear. Right frontal scalp soft tissue swelling. IMPRESSION: IMPRESSION: 1. No acute intracranial abnormalities. Discharge Plan Discharge Disposition: Home, Self-Care Date of Admission: 09/22/24 23:17 Attending Provider on Discharge: Kaila Mei Primary Care Provider: Joann Brown Condition: Improved Anticipated Discharge Date/Time: 09/23/24 10:48 Discharge Medications: New lidocaine 5 % Adhesive Patch,Medicated 1 patch transdermal Q12H Qty: 15 0RF oxycodone 5 mg tablet 5 mg PO Q6H PRN (Reason: pain) Qty: 15 0RF Continued metformin 750 mg tablet extended release 24 hr 750 mg PO DAILY metoprolol tartrate 100 mg tablet 100 mg PO BID lisinopril 40 mg tablet 40 mg PO DAILY levothyroxine 125 mcg tablet 125 mcg PO DAILY (DME) lancets [Microlet Lancet] [facility] [place] Instructions .ROUTE .MEDSUPPLY Qty: 100 Patient Comments: TEST DAILY Rx Instructions: As directed (DME) Contour Next Test Strips Strip See Rx Instructions .ROUTE .MEDSUPPLY Qty: 10 Patient Comments: TEST DAILY Rx Instructions: As directed (DME) blood-glucose meter [Contour Next Meter] [facility] [place] Instructions .ROUTE .MEDSUPPLY Qty: 1 Patient Comments: USE DIRECTED Rx Instructions: As directed apixaban 5 mg tablet 5 mg PO BID Qty: 60 0RF acetaminophen 500 mg tablet 1,000 mg PO Q6-8H PRN prednisone 20 mg tablet 20 mg PO .UD Patient Comments: 40MG DAILY X 4 DAYS, THEN 20MG DAILY X 4 DAYS hydrochlorothiazide 12.5 mg capsule 12.5 mg PO DAILY Mounjaro 5 mg/0.5 mL pen injector 5 mg subcut .1XW tizanidine 4 mg tablet 4 mg PO Q8H PRN Rx Instructions: #15 TABS clobetasol 0.05 % cream 1 applic topical DAILY PRN (Reason: itching) semaglutide 14 mg tablet 14 mg PO DAILY Rx Instructions: TAKE BEFORE A MEAL (DME) Walker- 2 Wheels [facility] [place] Instructions .Route Qty: 1 0RF Rx Instructions: As directed pantoprazole 40 mg tablet,delayed release (DR/EC) 40 mg PO DAILY celecoxib 200 mg capsule 200 mg PO DAILY PRN lorazepam 1 mg tablet 1 mg PO HS PRN rosuvastatin 10 mg tablet 10 mg PO HS nystatin [Nystop] 100,000 unit/gram powder 1 applic topical DAILY PRN Discharge Orders: Discharge Order (Routine); Ordered 09/23/24 Ordered By: Kaila Mei Patient Education: Hypertension (ED), Dizziness (ED) Additional Instructions: Continue to stay hydrated. Follow up with your PCP next week. Zio Patch was placed. Return as instructed. Continue your prednisone taper. Monitor your blood sugars. Schedule Tylenol to take it every 6 hours. Use ice and heat as needed. Continue to take deep breaths and splint when coughing or sneezing. It is important you continue to ambulate throughout the day. If you have any recurring symptoms such as dizziness, arm discomfort, chest pain, headache, blurry vision, facial numbness, arm numbness or weakness, please return to the ER immediately. Activity Level: Activity as Tolerated Discharge Diet: Diabetic Follow Up Appointments: Joann Brown DO [Primary Care Provider, Family Practice] Referral Note: Post hospital follow up 3-5 days Forms: [employer] Info Instructions
[2024-09-23] MEDS: METFORMIN ER 500 MG 750 MG PO (10:11)
--- NOTE | 2024-09-23 12:42 | PC.NURSE ---
Pt doing well. VSS. Pain controlled well with PRN medications, lidocaine patch, therapy and rest. Pt denies dizziness or lightheadedness with activity. Ambulating in room independently. Zio patch applied at 1130. Pt discharge instructions signed. No questions or concerns at this time. Pt discharged home at 1240 via .
== END 2024-09-23 12:40 | disposition home or self-care (01) ==
LOC: ED 20:34 → MEDSURG 23:19
PROVIDERS: Admitting Provider Family Medicine; Emergency Provider Emergency Medicine; PCP Family Medicine; Visit Provider Family Medicine
DX: R55 Syncope and collapse (principal); N17.9 Acute kidney failure, unspecified; E86.0 Dehydration; S29.9XXA Unspecified injury of thorax, initial encounter; S09.90XA Unspecified injury of head, initial encounter; M54.50 Low back pain, unspecified; I89.0 Lymphedema, not elsewhere classified; M54.2 Cervicalgia; W01.198A Fall on same level from slipping, tripping and stumbling with subsequent striking against other object, initial encounter; Y92.003 Bedroom of unspecified non-institutional (private) residence as the place of occurrence of the external cause; M25.562 Pain in left knee; M25.551 Pain in right hip; E11.9 Type 2 diabetes mellitus without complications; I48.0 Paroxysmal atrial fibrillation; Z79.01 Long term (current) use of anticoagulants; Z79.84 Long term (current) use of oral hypoglycemic drugs; I10 Essential (primary) hypertension; K21.9 Gastro-esophageal reflux disease without esophagitis; E66.9 Obesity, unspecified; G47.33 Obstructive sleep apnea (adult) (pediatric); G25.81 Restless legs syndrome; E03.9 Hypothyroidism, unspecified
CPT/HCPCS: 36415; 70450; 71260; 72125; 74177; 80048; 80053; 81001; 83605; 84484; 85025; 87086; 93005; 93246; 94761; 96361; 96374; 96375; 96376; 97116; 97161; 97166; 99285; A9270; G0378; J1100; J1171; J2405; J7030; Q9967

== ENCOUNTER 2025-01-05 10:30 | Outpatient (CLI) | payer OTHER, SELFPAY ==
--- NOTE | 2025-01-05 10:45 | CRLHL7_ITS ---
For Patients: As a result of the Century Cures Act, medical imaging exams and procedure reports are released immediately into your electronic medical record. You may view this report before your referring provider. If you have questions, please contact your health care provider. INDICATION: BILATERAL SCREENING MAMMOGRAM, ASYMPTOMATIC 59 Y/O FEMALE COMPARISON: 12/17/2023, 10/09/2022, 10/06/2021 TECHNIQUE: Digital mammogram in CC and MLO projections including computer-aided detection (CAD) and tomosynthesis. BREAST COMPOSITION: There are scattered areas of fibroglandular density. FINDINGS: No suspicious findings. ASSESSMENT: BI-RADS 1 Negative RECOMMENDATION: Annual screening mammogram. A lay language report of this examination will be provided to the patient. Dictated by: Jose Martinez MD @ 01/08/2025 09:25:00 (Electronically Signed)
== END 2025-01-05 10:31 | disposition home or self-care (01) ==
LOC: MAMMO 10:30
PROVIDERS: PCP Family Medicine; Visit Provider Family Medicine
DX: Z12.31 Encounter for screening mammogram for malignant neoplasm of breast (principal)
CPT/HCPCS: 77063; 77067

== ENCOUNTER 2025-01-17 20:27 | Emergency (ER) | payer OTHER, SELFPAY ==
[2025-01-17] VITALS (14 sets, daily range): BP systolic 141–184; BP diastolic 78–140; PULSE 91–157; RESP 11–28; TEMP 36.3–36.9; O2SAT 92–99; BMI 42.8
--- OUTSIDE RECORDS SUMMARY | 2025-01-17 20:30 | XMS_ITS | Encounter Summary ---
Author Organization [facility] Address [address], [place] [address] Care Team Providers Care Medical Delivery Technician Name Role Phone Found, No Pcp [...] filedocumented in this encounter Care Teams Medical Delivery Technician Relationship Specialty Start Date End Date Found, No Pcp, [address] [place] [address] PCP - General 07/05/23 documented as of this encounter
--- OUTSIDE RECORDS SUMMARY | 2025-01-17 20:30 | XMS_ITS | Encounter Summary ---
Author Organization [facility] Address [address] [address] Care Team Providers Care Critical Care Specialist Name Role Phone Found, No Pcp [...] on filedocumented in this encounter Care Teams Critical Care Specialist Relationship Specialty Start Date End Date Found, No Pcp, [address] [place] [address] PCP - General 07/05/23 documented as of this encounter
--- OUTSIDE RECORDS SUMMARY | 2025-01-17 20:30 | XMS_ITS | Encounter Summary ---
Author Organization [facility] Address [address], [place] [address] Care Team Providers Care Machine Chain Maker Name Role Phone Found, No Pcp [...] on filedocumented in this encounter Care Teams Machine Chain Maker Relationship Specialty Start Date End Date Found, No Pcp, [address] [place] [address] PCP - General 07/05/23 documented as of this encounter
--- OUTSIDE RECORDS SUMMARY | 2025-01-17 20:30 | XMS_ITS | Encounter Summary ---
Author Organization [facility] Address [address], [place] [address] Care Team Providers Care Motor Vehicle Assembler Name Role Phone Found, No Pcp [...] filedocumented in this encounter Care Teams Motor Vehicle Assembler Relationship Specialty Start Date End Date Found, No Pcp, [address] [place] [address] PCP - General 07/05/23 documented as of this encounter
--- OUTSIDE RECORDS SUMMARY | 2025-01-17 20:30 | XMS_ITS | Encounter Summary ---
Author Organization [facility] Address [address] [place] [address] Care Team Providers Care Linen Checker Name Role Phone Found, No Pcp Primary Care Provider Unavailab le Encounter Details Date Type Department Care Team (Latest Contact Info) Description 06/12/1999 Orders Only Inés Lozada MD [address] [place] [address] Social History Tobacco Use Types Packs/Day Years [...] on filedocumented in this encounter Care Teams Linen Checker Relationship Specialty Start Date End Date Found, No Pcp, [address] [place] [address] PCP - General 07/05/23 documented as of this encounter
--- OUTSIDE RECORDS SUMMARY | 2025-01-17 20:30 | XMS_ITS | Encounter Summary ---
Author Organization [facility] Address [address], [place] [address] Care Team Providers Care Dot Compliance Specialist Name Role Phone Found, No Pcp [...] on filedocumented in this encounter Care Teams Dot Compliance Specialist Relationship Specialty Start Date End Date Found, No Pcp, [address] [place] [address] PCP - General 07/05/23 documented as of this encounter
--- OUTSIDE RECORDS SUMMARY | 2025-01-17 20:30 | XMS_ITS | Encounter Summary ---
Author Organization [facility] Address [address], [place] [address] Care Team Providers Care Machine Group Leader Name Role Phone Found, No Pcp Primary Care Provider Unavailab le Encounter Details Date Type Department Care Team (Latest Contact Info) Description 07/06/1994 [place] [address] [facility] [place] [id number] Social History Tobacco Use Types Packs/Day Years [...] filedocumented in this encounter Care Teams Machine Group Leader Relationship Specialty Start Date End Date Found, No Pcp, [address] [place] [address] PCP - General 07/05/23 documented as of this encounter
--- OUTSIDE RECORDS SUMMARY | 2025-01-17 20:30 | XMS_ITS | Encounter Summary ---
Author Organization [facility] Address [address], [place] [address] Care Team Providers Care Carbon Paste Mixer Operator Name Role Phone Found, No Pcp [...] on filedocumented in this encounter Care Teams Carbon Paste Mixer Operator Relationship Specialty Start Date End Date Found, No Pcp, [address] [place] [address] PCP - General 07/05/23 documented as of this encounter
--- OUTSIDE RECORDS SUMMARY | 2025-01-17 20:30 | XMS_ITS | Encounter Summary ---
Author Organization [facility] Address [address] [address] Care Team Providers Care Car Designer Name Role Phone Found, No Pcp [...] filedocumented in this encounter Care Teams Car Designer Relationship Specialty Start Date End Date Found, No Pcp, [address] [place] [address] PCP - General 07/05/23 documented as of this encounter
--- OUTSIDE RECORDS SUMMARY | 2025-01-17 20:30 | XMS_ITS | Encounter Summary ---
Author Organization [facility] Address [address], [place] [address] Care Team Providers Care Welder First Class Name Role Phone Found, No Pcp Primary [...] on filedocumented in this encounter Care Teams Welder First Class Relationship Specialty Start Date End Date Found, No Pcp, [address] [place] [address] PCP - General 07/05/23 documented as of this encounter
--- OUTSIDE RECORDS SUMMARY | 2025-01-17 20:30 | XMS_ITS | Clinical Summary ---
Author Organization [facility] Address [address] [place] [address] Care Team Providers Care Performance Test Engineer Name Role Phone Joann Brown DO Primary Care Provider [phone] Allergies No known active allergies Medications miscellaneous [...] 1 time/day 100 Each 3 021 Active nystatin powder (Nystop) powderIndications:Yeast infection of the skin Apply topically to affected area(s) one time if needed (Topical yeast infection). 15 g 3 024 Active CPAPIndications:Obstruc tive sleep apnea RESMED CPAP (E0601) machine for home use at pressure: 5-15cmw, Choice of mask (A7030 or A7034) w/full face cushion (A7031) x1/mo, nasal cushion (A7032) x2/mo, or nasal pillows (A7033) x 2/mo; Length of Need: 99 months; Frequency of use: Daily 1 Each 11 024 Active rosuvastatin 10 mg tabletIndications:Pure hypercholesterolemia Take [...] mg) by mouth once daily. 90 Tablet 025 Active pantoprazole 40 mg delayed-release tabletIndications:Gastr oesophageal reflux disease, unspecified whether esophagitis present Take 1 Tablet (40 mg) by mouth once daily. 90 Tablet 3 025 Active metFORMIN 750 mg Extended-Release tabletIndications:Type 2 diabetes mellitus with hyperglycemia, without long-term current use of insulin (HC) Take 1 Tablet (750 mg) by mouth once daily. 90 Tablet 3 025 Active celecoxib 200 mg capsuleIndications:Oste oarthritis, unspecified osteoarthritis type, unspecified site Use 200 mg once daily as needed for pain 90 Capsule 3 025 Active predniSONE 20 mg tabletIndications:Acute midline low back pain without sciatica Take 40mg (2 tablets) for 4 days followed by 20mg (1 tablet) for 4 days 12 Tablet 025 Active LORazepam 1 mg tabletIndications:Insom dutch, idiopathic Take 1 Tablet (1 mg) by mouth at bedtime if needed for Anxiety or Sleep. 15 Tablet 025 Active Eliquis 5 mg tabletIndications:New onset atrial fibrillation (HC) TAKE 1 TABLET BY MOUTH TWICE A DAY 180 Tablet 2 025 Active lidocaine 5 % topical patchIndications:Acute midline low back pain with right-sided sciatica,SI (sacroiliac) pain Apply on dry, clean, hairless skin. Apply 1 patch to painful area of skin for up to to 12 hours within 24 hour period. 30 Patch 11 025 Active nitrofurantoin macrocrystals/monohydra te (Macrobid) 100 mg capsuleIndications:Recu rrent UTI Take 1 Capsule (100 mg) by mouth every 12 hours. Use dose before intercourse and dose after intercourse 12 hours after first dose 60 Capsule 025 Active tiZANidine (ZANAFLEX) 4 mg tabletIndications:Acute midline low back pain with right-sided sciatica Take 1 Tablet (4 mg) by mouth every 8 hours if needed for Muscle Spasm. 30 Tablet 025 Active tirzepatide (MOUNJARO) 7.5 mg/0.5 mL penIndications:Type 2 diabetes mellitus with hyperglycemia, without long-term current use of insulin (HC) Inject 7.5 mg subcutaneous once weekly. 6 mL 3 025 Active pen tirzepatide (MOUNJARO) 10 mg/0.5 mL penIndications:Type 2 diabetes mellitus with hyperglycemia, without long-term current use of insulin (HC) Inject 10 mg subcutaneous once weekly. 6 mL 3 025 Active clobetasol (TEMOVATE) 0.05 % creamIndications:Dermat itis APPLY TOPICALLY TO THE AFFECTED AREA DAILY NEEDED 30 g 1 025 Active Active Problems Problem Noted Date Diagnosed [...] Encounters Date Type Department Care Team Description 12/06/2024 Refill [facility] [address] [place] [address] Kennqra Joann Arianna, DO Refill Request (Clobetasol) 12/01/2024 Telephone [facility] [address] [place] [address] Kevin Joann Arianna, DO Medication Management (tirzepatide (MOUNJARO) 7.5 mg/0.5 mL pen /) 11/05/[address] [address] Kevin Joann Arianna, DO Refill Request (Nitrofurantoin Macrocrystals/monohydrat e) 11/04/[address] [address] Kevin Joann Arianna, DO Refill Request (Mounjaro) 11/03/2024 10:30 AM CDT Office Visit [facility] [address] [place] [address] Meena Dallas MD Derm Problem 11/03/2024 Travel 10/31/2024 3:25 PM CDT Office Visit [address] [address] Kevin Joann Arianna, DO Diabetes (3 month check); Results (Zio/) 10/31/2024 2:40 PM CDT Office Visit [address] [address] David Proctor MD Musculoskeletal Problem (Consultation for Low Back Pain with RIGHT SI symptoms /DOO 08/21/2024 - after a 6-[address]) 10/31/[address] [address] Joann Brown, DO Refill Request (Ranjit) 10/30/2024 Travel 10/26/2024 Travel from Last 3 Months Immunizations Immunization Administration Dates Next Due COVID-19 VACCINE SPIKEVAX (M ODERNA 50MCG/0.5ML) 12YO+ PFS 07/28/2024,01/22/2023 COVID-19 vaccine (Pfizer-Bio NTech 30mcg/0.3mL) 12YO+ BIVALENT [...] on file Legal Sex Female 5:45 AM ELEVATOR ERECTOR Gender Identity Not on file Sexual Orientation [...] Sign Reading Time Taken Comments Blood Pressure 95/64 10/31/2024 3:54 PM CDT Pulse 99 10/31/2024 3:54 PM CDT Temperature 37.2 C (98.9 F) 05/18/2024 3:30 PM ELEVATOR ERECTOR Respiratory Rate 20 05/18/2024 3:30 PM ELEVATOR ERECTOR Oxygen Saturation 99% 10/31/2024 3:54 PM CDT Inhaled Oxygen Concentration - - Weight 137.3 kg (302 lb 9.6 oz) 10/31/2024 3:54 PM CDT Height 173.7 cm (5' 8.39) 07/28/2024 9:28 AM CD T Body Mass Index 45.49 07/28/2024 9:28 AM CDT Plan of Treatment Upcoming Encounters Date Type Department Care Team (Late st Contact Info) Description 02/06/2025 8:30 AM ELEVATOR ERECTOR Office Visit [facility] [address] [place] [address] Joann Brown, DO [address] [place] [address] 03/06/2025 3:20 PM ELEVATOR ERECTOR Telemedicine [facility] [address] [facility] [place] [phone] Melvina Garcia PA [address] [place] [address] [address] [place], [place] [phone] Health Maintenance Due Date Last Done Comments Mammogram for age 45-75 10/03/2021 10/04/19, 10/03/2019, 06/03/2018, Additional history exists Hepatitis B [...] Additional history exists Tetanus booster 07/13/2032 07/13/2022, 10/05/2011, 02/14/2007, Additional history exists Hepatitis C screening for ag e 18-79 Completed 03/30/2019 Zoster (shingles) series for age 50+ Completed 05/19/2021, 03/30/2019 Pneumococcal series for age 50+ Completed 07/13/2022, 03/30/2019, 06/11/2000 HIV for age 15-65 Completed 09/01/2023 Procedures Procedure Name Priority Date/Time Associated Diagnosis Comments HEMOGLOBIN A1C MONITORING (POCT) Routine 10/31/2024 3:34 PM CDT Type 2 diabetes mellitus with hyperglycemia, without long-term current use of insulin (HC) URINE ALBUMIN TO CREATININE RATIO, RANDOM Routine 10/31/2024 3:33 PM CDT Type 2 diabetes mellitus with hyperglycemia, without long-term current use of insulin (HC) LIPID PANEL W REFLEX MEASURED LDL Routine 07/28/2024 9:07 AM CDT Pure hypercholesterolemia ANTI HIV 1/2 Routine 09/01/2023 3:17 PM CDT Screening for HIV (human immunodeficiency virus) SCAN-MAMMOGRAPHY REPORT 10/03/2020 12:00 AM CDT SIGNALS OFFICER THIN PREP PAP SCREEN IMAGED Routine 04/15/2020 8:45 AM ELEVATOR ERECTOR Pap smear for cervical cancer screening ANTI HCV Routine 03/30/2019 12:27 PM ELEVATOR ERECTOR Need for hepatitis C screening test SCAN-COLONOSCOPY 12/30/2015 12:0 0 AM CDT from Last 3 Months or Most Recently Relevant to Health Maintenance Results * (ABNORMAL) HEMOGLOBIN A1C MONITORING (POCT) (10/31/2024 3:34 PM CDT) Pathologist [facility] POC HEMOGLOBIN A1C 6.7(H) <6.0 % OF TOTAL HGB [facility] Comment: Any point of care results exhibiting inconsistency with the patient's clinical status should be repeated using a different testing method. Blood BLOOD SPECIMEN / Unknown 10/31/2024 3:34 PM CDT 10/31/2024 3:34 PM CDT Joann Arianna [id number] DO CHEMISTRY Final Result Performing Organization Address [facility]/ZIP Co de Phone Number [facility] [address] [place] [address], [facility] [address] [place] [address] * URINE ALBUMIN TO CREATININE RATIO, RANDOM (10/31/2024 3:33 PM CDT) [facility] ALB RAND URINE 79.2 mg/L 10/31/2024 11:48 PM CDT [facility] CREATININE,URIN E 4.47 g/L 10/31/2024 11:48 PM CDT [facility] ALBUMIN TO CREATININE RATIO,RAND UR 17.7 <30.0 mg/g creat 10/31/2024 11:48 PM CDT [facility] Urine URINE SPECIMEN / Unknown Non-Blood / Unknown 10/31/2024 3:33 PM CDT 10/31/2024 3:33 PM CDT Narrative [facility] - 10/31/2024 11:48 PM CDT If Albumin to Creatinine Ratio is elevated, consider the following: Elevations seen with incipient nephropathy associated with diabetes mellitus or hypertension. Stress, exercise,hematuria, and urinary tract infection may also produce elevated results. If clinically indicated, confirm with 24 Hour Albumin to Creatinine Ratio. [email or web address] DO URINE Final Result Performing Organization Address City/[facility]/ZIP Co de Phone Number [facility] [address] [place] [address], * LIPID PANEL W REFLEX MEASURED LDL (07/28/2024 9:07 AM CDT) Pathologist [facility] CHOLESTEROL, TOTAL 170 <200 mg/dL [facility] HDL CHOLESTEROL 75 > OR = 50 mg/dL [facility] TRIGLYCERIDES 146 <150 mg/dL [facility] LDL-CHOLESTEROL 72 mg/dL (calc) [facility] Comment: Reference range: <100 Desirable range <100 mg/dL for primary prevention; <70 mg/dL for patients with CHD or diabetic patients with > or = 2 CHD risk factors. LDL-C is now calculated using the Conrad calculation, which is a validated novel method providing better accuracy than the Friedewald equation in the estimation of LDL-C. Neville EVANS et al. FRANCHESKA. 2013;310(19): 1361-1935 (http://education.[employer]/faq/UAD650) CHOL/HDLC RATIO 2.3 <5.0 (calc) [facility] [...] us Joann Brown DO CHEMISTRY Final Result [employer] Monitoring [employer] [facility] [address] [place] [address], [place] [phone] [facility] [address] [facility] [place] [address] * ANTI HIV 1/2 [66648.0] (09/01/2023 3:17 PM CDT) Pathologist [facility] HIV-1/HIV-2 SCREEN Non-Reacti ve Non-Reacti ve 09/01/2023 11:34 PM CDT [facility] [employer] [facility] Comment:HIV-1 p24 and HIV-1/ HIV-2 Ab Not Detected. Blood BLOOD SPECIMEN / Unknown Venipuncture / Unknown 09/01/2023 3:17 PM CDT 09/01/2023 3:19 PM CDT us Joann Brown DO SEND OUTS Final Result [facility] [address] [place] [address], [place] * SCAN-MAMMOGRAPHY REPORT (10/03/2020 12:00 AM CDT) Anatomical Region Laterality Modality Other us Scanner OTHER Final Result * SIGNALS OFFICER THIN PREP PAP SCREEN IMAGED [[id number]] (04/15/2020 8:45 AM ELEVATOR ERECTOR) Case Report Gynecologic Cytology Report Case: [id number] Authorizing Provider: Sherrie Doyle MD Collected: 04/15/2020 0845 Ordering Location: [facility] Received: 04/15/2020 1020 Clinic First Screen: Giselle Alexandra Specimen: SIGNALS OFFICER ThinPrep Vial Screening, Cervical 04/23/2020 2:58 PM ELEVATOR ERECTOR [facility] ENTRAL [facility] INTERPRETATION/ RESULT NEGATIVE FOR INTRAEPITHELIAL LESION OR MALIGNANCY (NIL) (none) 04/23/2020 2:58 PM ELEVATOR ERECTOR [facility] [employer] ENTRAL LABORATORY at 1458 ELEVATOR ERECTOR SPECIMEN ADEQUACY Satisfactory for evaluation Endocervical component present 04/23/2020 2:58 PM ELEVATOR ERECTOR [facility] [employer] [facility] ENTRAL LABORATORY HPV REQUEST HPV and PAP 04/23/2020 2:58 PM ELEVATOR ERECTOR [facility] [employer] [facility] Date of LMP uncertain 04/23/2020 2:58 PM ELEVATOR ERECTOR [facility] [employer] [facility] Last Pap Date 03/18/17 04/23/2020 2:58 PM ELEVATOR ERECTOR [facility] Last Pap Result NIL 2:58 PM ELEVATOR ERECTOR [facility] Abnormal Pap or Orchard Bx in last 5 years No 04/23/2020 2:58 PM ELEVATOR ERECTOR [facility] Menstrual Status Postmenopausal 04/23/2020 2:58 PM ELEVATOR ERECTOR [facility] Orchard Bx Done Today No 04/23/2020 2:58 PM ELEVATOR ERECTOR [facility] Additional Information None given 04/23/2020 2:58 PM ELEVATOR ERECTOR [facility] Comment: Cytology is screened at [facility] - [address], [place] [address] and [facility] - [address], [place] [address] and [facility] - [address] [place] [address] Interpreted at [facility] - [address], [place] [address] Automated Review Successful 04/23/2020 2:58 PM ELEVATOR ERECTOR [facility] Comment:Specimen processed s uccessfully by automated migratory game bird biologist device, ThinPrep Imaging System, [employer] ANCILLARY TESTING SIGNALS OFFICER HPV Ordered, Please see separate report 04/23/2020 2:58 PM ELEVATOR ERECTOR [facility] Note The pap test is a screening technique, not a diagnostic procedure. It is used primarily to screen for squamous cancers and precursor lesions. Published studies have shown that it is subject to both false negative and false positive results. The pap test should not be used as the sole means to diagnose or exclude pre-malignant and malignant lesions. 04/23/2020 2:58 PM ELEVATOR ERECTOR [facility] Other (Cervical) Non-Blood / Unknown 04/15/2020 8:45 AM ELEVATOR ERECTOR 04/15/2020 10:20 AM ELEVATOR ERECTOR us Sherrie Doyle MD PATHOLOGY/CYTOLOGY Final Resu lt [facility] [address] [place] [address], [place] * ANTI HCV (03/30/2019 12:27 PM ELEVATOR ERECTOR) HEPATITIS C ANTIBODY Non-React chiquita Non-React chiquita 03/30/2019 7:09 PM ELEVATOR ERECTOR [facility] [employer] [facility] Comment:Antibodies to HCV no t detected; does not exclude the possibility of exposure to HCV. Blood BLOOD SPECIMEN / Unknown Butterfly / Unknown 03/30/2019 12:27 PM ELEVATOR ERECTOR 03/30/2019 12:27 PM ELEVATOR ERECTOR us Sherrie Doyle MD SEND OUTS Final Result [facility] [address] [place] [address], [place] * SCAN-COLONOSCOPY (12/30/2015 12:00 AM CDT) us Scanner OTHER Final Result from Last 3 Months or Most Recently Relevant to Health Maintenance Insurance [facility] on file Care Teams Performance Test Engineer Relationship Specialty Start Date End Date Joann Brown DO [address] [place] [address] PCP - General Family Practice 07/13/22
--- OUTSIDE RECORDS SUMMARY | 2025-01-17 20:30 | XMS_ITS | Encounter Summary ---
Author Organization [facility] Address [address], [place] [address] Care Team Providers Care District Ranger Name Role Phone Found, No Pcp Primary [...] on filedocumented in this encounter Care Teams District Ranger Relationship Specialty Start Date End Date Found, No Pcp, [address] [place] [address] PCP - General 07/05/23 documented as of this encounter
--- OUTSIDE RECORDS SUMMARY | 2025-01-17 20:30 | XMS_ITS | Encounter Summary ---
Author Organization [facility] Address [address], [place] [address] Care Team Providers Care Mold Stamper And Repairer Name Role Phone Found, No Pcp [...] on filedocumented in this encounter Care Teams Mold Stamper And Repairer Relationship Specialty Start Date End Date Found, No Pcp, [address] [place] [address] PCP - General 07/05/23 documented as of this encounter
--- OUTSIDE RECORDS SUMMARY | 2025-01-17 20:30 | XMS_ITS | Clinical Summary ---
Author Organization [facility] Address [address] [place] [address] Care Team Providers Care Lime Plant Operator Name Role Phone Mp Brown DO Primary Care Provider [phone] Allergies No known active allergies Medications cyclobenzaprine [...] on file Legal Sex Female 3:23 AM DRIVER LICENSE EXAMINER Gender Identity Not on file Sexual Orientation Not on file Last Filed Vital Signs Vital Sign Reading Time Taken Comments Blood Pressure 157/88 03/13/2024 7:26 PM DRIVER LICENSE EXAMINER Pulse 101 03/13/2024 7:26 PM DRIVER LICENSE EXAMINER Temperature 36.7 C (98 F) 03/13/2024 7:26 PM DRIVER LICENSE EXAMINER Respiratory Rate 18 03/13/2024 7:26 PM DRIVER LICENSE EXAMINER Oxygen Saturation 97% 03/13/2024 7:26 PM DRIVER LICENSE EXAMINER Inhaled Oxygen Concentration - - Weight 158.3 [...] (Cologuard) 1964 LIPID 2004 PAP 04/15/2023 04/15/2020 PHQ-2 (once per calendar year) 2024 YEARLY PREVENTIVE VISIT 08/31/2024 09/01/19, 07/13/2022, 05/19/2021, Additional history exists COVID-19 VACCINE ( season) 2024 01/22/2023, 05/07/2022, 07/10/2021, Additional history exists INFLUENZA VACCINE (#1) 2024 , 12/17/2021, 12/18/2020, Additional history exists COLONOSCOPY 12/29/2025 12/30/2015 COLORECTAL CANCER SCREENING 12/29/2025 DIABETES SCREENING 03/13/2027 03/13/2024 DTAP/TDAP/TD VACCINE (6 - Td or Tdap) 07/13/2032 07/13/2022, 01/02/2012, 12/23/2011, Additional history exists RSV VACCINE (1 - 1-dose 75+ series) 2039 HEPATITIS C SCREENING Completed 03/30/2019 ZOSTER VACCINE Completed 05/19/2021, 03/30/2019 PNEUMOCOCCAL VACCINE 50+ YEARS Completed 07/13/2022, 03/30/2019, 06/11/2000 HIV SCREENING Completed 09/01/2023 HPV VACCINE (No Doses Required) Completed MENINGITIS VACCINE Aged Out No longer eligible based on patient's age to complete this topic Procedures Procedure Name Priority Date/Time Associated Diagnosis Comments BASIC METABOLIC PANEL STAT 03/13/2024 7:51 PM DRIVER LICENSE EXAMINER from Last 3 Months or Most Recently Relevant to Health Maintenance Results * (ABNORMAL) Basic metabolic panel (BMP) (03/13/2024 7:51 PM DRIVER LICENSE EXAMINER) Sodium 137 135 - 145 mmol/L 03/13/2024 8:36 PM DRIVER LICENSE EXAMINER LABORATORY Potassium 3.8 3.4 - 5.3 mmol/L 03/13/2024 8:36 PM DRIVER LICENSE EXAMINER LABORATORY Chloride 102 98 - 107 mmol/L 03/13/2024 8:36 PM DRIVER LICENSE EXAMINER LABORATORY Carbon Dioxide (CO2) 20(L) 22 - 29 mmol/L 03/13/2024 8:36 PM DRIVER LICENSE EXAMINER LABORATORY Anion Gap 15 7 - 15 mmol/L 03/13/2024 8:36 PM DRIVER LICENSE EXAMINER LABORATORY Urea Nitrogen 14.6 8.0 - 23.0 mg/dL 03/13/2024 8:36 PM DRIVER LICENSE EXAMINER LABORATORY Creatinine 0.70 0.51 - 0.95 mg/dL 03/13/2024 8:36 PM DRIVER LICENSE EXAMINER LABORATORY GFR Estimate >90 >60 mL/min/1.7 3m2 03/13/2024 8:36 PM DRIVER LICENSE EXAMINER LABORATORY Comment:eGFR calculated usin g 2020 CKD-EPI equation. Calcium 9.5 8.8 - 10.4 mg/dL 03/13/2024 8:36 PM DRIVER LICENSE EXAMINER LABORATORY Comment:Reference intervals for this test were updated on 10/05/2023 to reflect our healthy population more accurately. There may be differences in the flagging of prior results with similar values performed with this method. Those prior results can be interpreted in the context of the updated reference intervals. Glucose 180(H) 70 - 99 mg/dL 03/13/2024 8:36 PM DRIVER LICENSE EXAMINER LABORATORY Blood STRUCTURE OF LEFT HAND / Unknown Venipuncture / Unknown 03/13/2024 7:51 PM DRIVER LICENSE EXAMINER 03/13/2024 7:56 PM DRIVER LICENSE EXAMINER us Itz Lino MD LAB - BLOOD ORDERABLES Final Result LABORATORY [facility] [address] [facility] (1st floor, no room number) [place] [address], [facility] from Last 3 Months or Most Recently Relevant to Health Maintenance Insurance [employer] Care Teams Lime Plant Operator Relationship Specialty Start Date End [place] [place] [address] PCP - General 01/01/23
--- OUTSIDE RECORDS SUMMARY | 2025-01-17 20:30 | XMS_ITS | Encounter Summary ---
Author Organization [facility] Address [address] [place] [address] Care Team Providers Care Junior Copywriter Name Role Phone Found, No Pcp Primary Care Provider Unavailab le Encounter Details Date Type Department Care Team (Latest Contact Info) Description 06/30/1997 Orders Only Kyree Coronado MD [address] [place], [place] [id number] Social History Tobacco Use Types Packs/Day Years [...] on filedocumented in this encounter Care Teams Junior Copywriter Relationship Specialty Start Date End Date Found, No Pcp, [address] [place] [address] PCP - General 07/05/23 documented as of this encounter
--- OUTSIDE RECORDS SUMMARY | 2025-01-17 20:30 | XMS_ITS | Encounter Summary ---
Author Organization [facility] Address [address] [address] Care Team Providers Care Administrative Assistant Name Role Phone Found, No Pcp [...] filedocumented in this encounter Care Teams Administrative Assistant Relationship Specialty Start Date End Date Found, No Pcp, [address] [place] [address] PCP - General 07/05/23 documented as of this encounter
--- OUTSIDE RECORDS SUMMARY | 2025-01-17 20:30 | XMS_ITS | Encounter Summary ---
Author Organization [facility] Address [address] [address] Care Team Providers Care Commissions Specialist Name Role Phone Found, No Pcp [...] on filedocumented in this encounter Care Teams Commissions Specialist Relationship Specialty Start Date End Date Found, No Pcp, [address] [place] [address] PCP - General 07/05/23 documented as of this encounter
--- OUTSIDE RECORDS SUMMARY | 2025-01-17 20:30 | XMS_ITS | Encounter Summary ---
Author Organization [facility] Address [address] [address] Care Team Providers Care Embroidery Worker Name Role Phone Found, No Pcp [...] on filedocumented in this encounter Care Teams Embroidery Worker Relationship Specialty Start Date End Date Found, No Pcp, [address] [place] [address] PCP - General 07/05/23 documented as of this encounter
--- OUTSIDE RECORDS SUMMARY | 2025-01-17 20:30 | XMS_ITS | Encounter Summary ---
Author Organization [facility] Address [address], [place] [address] Care Team Providers Care Appointment Manager Name Role Phone Found, No Pcp [...] on filedocumented in this encounter Care Teams Appointment Manager Relationship Specialty Start Date End Date Found, No Pcp, [address] [place] [address] PCP - General 07/05/23 documented as of this encounter
--- OUTSIDE RECORDS SUMMARY | 2025-01-17 20:30 | XMS_ITS | Encounter Summary ---
Author Organization [facility] Address [address] [place] [address] Care Team Providers Care Director Of Outreach Name Role Phone Found, No Pcp Primary Care Provider Unavailab le Encounter Details Date Type Department Care Team (Latest Contact Info) Description 12/22/1997 Orders Only Nikhil Ceja MD [address] [place], [place] [id number] Social History Tobacco Use Types Packs/Day Years [...] in this encounter Care Teams Director Of Outreach Relationship Specialty Start Date End Date Found, No Pcp, [address] [place] [address] PCP - General 07/05/23 documented as of this encounter
--- OUTSIDE RECORDS SUMMARY | 2025-01-17 20:30 | XMS_ITS | Encounter Summary ---
Author Organization [facility] Address [address] [place] [address] Care Team Providers Care Pari Mutuel Ticket Cashier Name Role Phone Found, No Pcp Primary Care Provider Unavailab le Encounter Details Date Type Department Care Team (Latest Contact Info) Description 08/17/1996 Orders Only Paulina Villegas MD [address] [facility] [address] [place] [address] Social History Tobacco Use Types [...] on filedocumented in this encounter Care Teams Pari Mutuel Ticket Cashier Relationship Specialty Start Date End Date Found, No Pcp, [address] [place] [address] PCP - General 07/05/23 documented as of this encounter
--- OUTSIDE RECORDS SUMMARY | 2025-01-17 20:30 | XMS_ITS | Encounter Summary ---
Author Organization [facility] Address [address], [place] [address] Care Team Providers Care Aircraft Structure Mechanic Name Role Phone Found, No Pcp [...] on filedocumented in this encounter Care Teams Aircraft Structure Mechanic Relationship Specialty Start Date End Date Found, No Pcp, [address] [place] [address] PCP - General 07/05/23 documented as of this encounter
--- OUTSIDE RECORDS SUMMARY | 2025-01-17 20:30 | XMS_ITS | Encounter Summary ---
Author Organization [facility] Address [address] [address] Care Team Providers Care Chha Name Role Phone Found, No Pcp Primary [...] on filedocumented in this encounter Care Teams Chha Relationship Specialty Start Date End Date Found, No Pcp, [address] [place] [address] PCP - General 07/05/23 documented as of this encounter
--- OUTSIDE RECORDS SUMMARY | 2025-01-17 20:30 | XMS_ITS | Encounter Summary ---
Author Organization [facility] Address [address] [address] Care Team Providers Care Machine Assistant Name Role Phone Found, No Pcp [...] filedocumented in this encounter Care Teams Machine Assistant Relationship Specialty Start Date End Date Found, No Pcp, [address] [place] [address] PCP - General 07/05/23 documented as of this encounter
--- OUTSIDE RECORDS SUMMARY | 2025-01-17 20:30 | XMS_ITS | Encounter Summary ---
Author Organization [facility] Address [address] [address] Care Team Providers Care Workforce Management Analyst Name Role Phone Found, No Pcp Primary Care Provider Unavailab le Encounter Details Date Type Department Care Team (Latest Contact Info) Description 07/02/1994 [place] [address] [place] [address] Social History Tobacco Use Types [...] on filedocumented in this encounter Care Teams Workforce Management Analyst Relationship Specialty Start Date End Date Found, No Pcp, [address] [place] [address] PCP - General 07/05/23 documented as of this encounter
--- OUTSIDE RECORDS SUMMARY | 2025-01-17 20:30 | XMS_ITS | Encounter Summary ---
Author Organization [facility] Address [address] [address] Care Team Providers Care Patient Access Representative Name Role Phone Found, No Pcp [...] on filedocumented in this encounter Care Teams Patient Access Representative Relationship Specialty Start Date End Date Found, No Pcp, [address] [place] [address] PCP - General 07/05/23 documented as of this encounter
--- OUTSIDE RECORDS SUMMARY | 2025-01-17 20:30 | XMS_ITS | Encounter Summary ---
Author Organization [facility] Address [address] [address] Care Team Providers Care Analyst Name Role Phone Found, No Pcp [...] on filedocumented in this encounter Care Teams Analyst Relationship Specialty Start Date End Date Found, No Pcp, [address] [place] [address] PCP - General 07/05/23 documented as of this encounter
--- OUTSIDE RECORDS SUMMARY | 2025-01-17 20:30 | XMS_ITS | Encounter Summary ---
Author Organization [facility] Address [address] [address] Care Team Providers Care Aerodynamic Consultant Name Role Phone Found, No Pcp Primary Care Provider Unavailab le Encounter Details Date Type Department Care Team (Latest Contact Info) Description 08/12/1996 Orders Only Joshua Váz[place] [address] [place] [address] Social History Tobacco Use Types [...] on filedocumented in this encounter Care Teams Aerodynamic Consultant Relationship Specialty Start Date End Date Found, No Pcp, [address] [place] [address] PCP - General 07/05/23 documented as of this encounter
--- OUTSIDE RECORDS SUMMARY | 2025-01-17 20:30 | XMS_ITS | Encounter Summary ---
Author Organization [facility] Address [address] [address] Care Team Providers Care Interviewing Clerk Name Role Phone Found, No Pcp [...] on filedocumented in this encounter Care Teams Interviewing Clerk Relationship Specialty Start Date End Date Found, No Pcp, [address] [place] [address] PCP - General 07/05/23 documented as of this encounter
--- OUTSIDE RECORDS SUMMARY | 2025-01-17 20:31 | XMS_ITS | Encounter Summary ---
Author Organization [facility] Address [address] [place] [address] Care Team Providers Care Gear Nicker Name Role Phone Found, No Pcp Primary Care Provider Unavailab le Encounter Details Date Type Department Care Team (Latest Contact Info) Description 09/20/1995 Orders Only Kyree Coronado MD [address] [place], [place] [id number] Social History Tobacco Use Types Packs/Day Years [...] on filedocumented in this encounter Care Teams Gear Nicker Relationship Specialty Start Date End Date Found, No Pcp, [address] [place] [address] PCP - General 07/05/23 documented as of this encounter
--- OUTSIDE RECORDS SUMMARY | 2025-01-17 20:31 | XMS_ITS | Encounter Summary ---
Author Organization [facility] Address [address] [address] Care Team Providers Care Ammonia Operator Name Role Phone Found, No Pcp [...] on filedocumented in this encounter Care Teams Ammonia Operator Relationship Specialty Start Date End Date Found, No Pcp, [address] [place] [address] PCP - General 07/05/23 documented as of this encounter
--- OUTSIDE RECORDS SUMMARY | 2025-01-17 20:31 | XMS_ITS | Encounter Summary ---
Author Organization [facility] Address [address] [address] Care Team Providers Care Budder Name Role Phone Found, No Pcp Primary [...] on filedocumented in this encounter Care Teams Budder Relationship Specialty Start Date End Date Found, No Pcp, [address] [place] [address] PCP - General 07/05/23 documented as of this encounter
--- OUTSIDE RECORDS SUMMARY | 2025-01-17 20:31 | XMS_ITS | Encounter Summary ---
Author Organization [facility] Address [address] [address] Care Team Providers Care District Customs Director Name Role Phone Found, No Pcp [...] filedocumented in this encounter Care Teams District Customs Director Relationship Specialty Start Date End Date Found, No Pcp, [address] [place] [address] PCP - General 07/05/23 documented as of this encounter
--- OUTSIDE RECORDS SUMMARY | 2025-01-17 20:31 | XMS_ITS | Encounter Summary ---
Author Organization [facility] Address [address] [address] Care Team Providers Care Population Geneticist Name Role Phone Found, No Pcp Primary [...] on filedocumented in this encounter Care Teams Population Geneticist Relationship Specialty Start Date End Date Found, No Pcp, [address] [place] [address] PCP - General 07/05/23 documented as of this encounter
--- OUTSIDE RECORDS SUMMARY | 2025-01-17 20:31 | XMS_ITS | Encounter Summary ---
Author Organization [facility] Address [address], [place] [address] Care Team Providers Care Uniform Cap Operator Name Role Phone Found, No Pcp [...] on filedocumented in this encounter Care Teams Uniform Cap Operator Relationship Specialty Start Date End Date Found, No Pcp, [address] [place] [address] PCP - General 07/05/23 documented as of this encounter
--- OUTSIDE RECORDS SUMMARY | 2025-01-17 20:31 | XMS_ITS | Encounter Summary ---
Author Organization [facility] Address [address], [place] [address] Care Team Providers Care Medical Assistant Float Name Role Phone Found, No Pcp Primary Care Provider Unavailab le Encounter Details Date Type Department Care Team (Latest Contact Info) Description 07/02/1995 Orders Only [facility] [address] [facility] [place], [address] Social History Tobacco Use Types Packs/Day [...] filedocumented in this encounter Care Teams Medical Assistant Float Relationship Specialty Start Date End Date Found, No Pcp, [address] [facility] [place] [address] PCP - General 07/05/23 documented as of this encounter
--- OUTSIDE RECORDS SUMMARY | 2025-01-17 20:31 | XMS_ITS | Clinical Summary ---
Author Organization [facility] Address [address] [place] [address] Care Team Providers Care Production Artist Name Role Phone Found, No Pcp MD Primary Care Provider Unavailab le Source Comments You are receiving this document as you are listed as the primary care provider,follow-up provider, or the patient has been referred to you for consultation.This is in compliance with the Medicare and[facility] EHR Incentive Program,which states Providers who transition their patient to another setting of careor provider of care or refers their patient to another provider of care shouldprovide summary care record for each transition of care or referral. [facility] Allergies No known active allergies [...] Comments Blood Pressure 148/79 03/13/2024 6:57 PM INTEGRITY DIRECTOR Pulse 98 03/13/2024 6:57 PM INTEGRITY DIRECTOR Temperature 36.8 C (98.3 F) 03/13/2024 6:57 PM INTEGRITY DIRECTOR Respiratory Rate 18 03/13/2024 6:57 PM INTEGRITY DIRECTOR Oxygen Saturation - - Inhaled Oxygen Concentration - - Weight 156.5 kg (345 lb) 05/14/2023 10:00 AM INTEGRITY DIRECTOR Height 175.3 cm (5' 9) 05/14/2023 10:00 AM INTEGRITY DIRECTOR Body Mass Index 50.95 05/14/2023 10:00 AM INTEGRITY DIRECTOR Plan of Treatment Health Maintenance Due Date Last Done Comments Cervical Cancer Screening Due 1965 Colon Cancer Screening Plan Due 1965 Hep C Screening (Preventive Services) 1965 Mammogram 1965 Adult Preventive Visit 01/16/1999 01/16/1998 Cholesterol 2009 01/16/1998 RSV Vaccine (1 - Risk 50-74 years 1-dose series) 2014 COVID-19 Vaccine ( season) 2024 01/22/2023, 05/07/2022, 07/10/2021, Additional history exists Influenza Vaccine (#1) 2024 , 12/17/2021, 12/18/2020, [...] CHOLESTEROL (TOTAL) Routine 01/16/1998 1 1:49 AM INTEGRITY DIRECTOR from Last 3 Months or Most Recently Relevant to Health Maintenance Results * (ABNORMAL) CHOLESTEROL (TOTAL) (01/16/1998 11:49 AM INTEGRITY DIRECTOR) Cholesterol 238(H) <200 mg/dl [place] Cholesterol Result should not be interpreted without the patient's history of cardiovascular risk factors. [place] 01/16/1998 11:4 9 AM INTEGRITY DIRECTOR 01/16/1998 11:50 AM INTEGRITY DIRECTOR us Emilio Dewey MD LAB_1 Final Result [facility] [address] [id number] from Last 3 Months or Most Recently Relevant to Health Maintenance Insurance [employer] [facility] [place] [id number] 1967 [address] [place] [id number] Care Teams Production Artist Relationship Specialty Start Date End Date Found, No Pcp, [address] [facility] [address] PCP - General 07/05/23
--- OUTSIDE RECORDS SUMMARY | 2025-01-17 20:31 | XMS_ITS | Encounter Summary ---
Author Organization [facility] Address [address] [place] [address] Care Team Providers Care It Project Lead Name Role Phone Found, No Pcp Primary Care Provider Unavailab le Encounter Details Date Type Department Care Team (Late st Contact Info) Description 06/05/1995 Orders Only [employer] Scott Pedroza MD [address] [id number] Social History Tobacco Use Types Packs/Day Years [...] filedocumented in this encounter Care Teams It Project Lead Relationship Specialty Start Date End Date Found, No Pcp, [address] [place] [address] PCP - General 07/05/23 documented as of this encounter
--- OUTSIDE RECORDS SUMMARY | 2025-01-17 20:31 | XMS_ITS | Encounter Summary ---
Author Organization [facility] Address [address] [address] Care Team Providers Care Metal Die Finisher Name Role Phone Found, No Pcp Primary [...] filedocumented in this encounter Care Teams Metal Die Finisher Relationship Specialty Start Date End Date Found, No Pcp, [address] [place] [address] PCP - General 07/05/23 documented as of this encounter
--- OUTSIDE RECORDS SUMMARY | 2025-01-17 20:31 | XMS_ITS | Encounter Summary ---
Author Organization [facility] Address [address] [address] Care Team Providers Care Sample Case Porter Name Role Phone Found, No Pcp Primary [...] on filedocumented in this encounter Care Teams Sample Case Porter Relationship Specialty Start Date End Date Found, No Pcp, [address] [place] [address] PCP - General 07/05/23 documented as of this encounter
--- OUTSIDE RECORDS SUMMARY | 2025-01-17 20:31 | XMS_ITS | Encounter Summary ---
Author Organization [facility] Address [address] [address] Care Team Providers Care Applications Intern Name Role Phone Found, No Pcp [...] filedocumented in this encounter Care Teams Applications Intern Relationship Specialty Start Date End Date Found, No Pcp, [address] [place] [address] PCP - General 07/05/23 documented as of this encounter
--- NOTE | 2025-01-17 20:38 | ED.ARRPALP ---
HPI - Arrhythmia/Palpitations General Time Seen by Provider: 20:38 <Judy Cabrera MD - Last Filed: 01/18/25 00:24> Date Seen: 01/17/25 <Judy Cabrera MD - Last Filed: 01/18/25 00:24> Chief Complaint: Arrhythmia/Palpitations <Judy Cabrera MD - Last Filed: 01/18/25 00:24> Stated Complaint: afib <Judy Cabrera MD - Last Filed: 01/18/25 00:24> Time Seen by Provider: 01/17/25 20:38 <Judy Cabrera MD - Last Filed: 01/18/25 00:24> Source: patient <Judy Cabrera MD - Last Filed: 01/18/25 00:24> Mode of arrival: ambulatory <Judy Cabrera MD - Last Filed: 01/18/25 00:24> History of Present Illness HPI narrative: Fide is a 59 yo female with a past medical history of Atrial Fibrillation, HTN, HL, DM on chronic anticoagulation with Eliquis who presents to the ED for evaluation of palpitations. Patient reports that approximately 20 minutes prior to arrival she was sitting on the couch when had sudden onset of irregular heartbeat. Patient reports palpitations, some slight chest discomfort, and some dizziness. Patient reports history of similar episode in the past with atrial fibrillation with RVR. Patient otherwise has been doing well, reports feeling well earlier today, denies any recent illnesses, denies any fever, chills, cough or cold-like symptoms, denies any abdominal pain, nausea, vomiting, diarrhea. No other complaints. Patient has been taking her anticoagulation twice daily as directed. <Judy Cabrera MD - Last Filed: 01/18/25 00:24> Related Data Home Medications: Home Medications ?Medication ?Instructions ?Recorded ?Confirmed blood sugar diagnostic (Contour #10 ea 12/15/21 10/16/24 Next Test Strips) blood-glucose meter (Contour Next #1 ea 12/15/21 10/16/24 Meter) lancets (Microlet Lancet) #100 ea 12/15/21 10/16/24 levothyroxine 125 mcg tablet 125 mcg PO DAILY 12/15/21 10/16/24 lisinopril 40 mg tablet 40 mg PO DAILY 12/15/21 10/16/24 metoprolol tartrate 100 mg tablet 100 mg PO BID 12/15/21 10/16/24 metformin 750 mg tablet,extended 750 mg PO DAILY 11/03/22 10/16/24 release 24 hr celecoxib 200 mg capsule 200 mg PO DAILY PRN 09/21/23 10/16/24 lorazepam 1 mg tablet 1 mg PO HS PRN 09/21/23 10/16/24 nystatin 100,000 unit/gram topical 1 applic topical DAILY PRN 09/21/23 10/16/24 powder (Nystop) pantoprazole 40 mg tablet,delayed 40 mg PO DAILY 09/21/23 10/16/24 release rosuvastatin 10 mg tablet 10 mg PO HS 09/21/23 10/16/24 acetaminophen 500 mg tablet 1,000 mg PO Q6-8H PRN 09/23/24 10/16/24 clobetasol 0.05 % topical cream 1 applic topical DAILY PRN itching 09/23/24 10/16/24 hydrochlorothiazide 12.5 mg capsule 12.5 mg PO DAILY 09/23/24 10/16/24 prednisone 20 mg tablet 20 mg PO .UD 09/23/24 10/16/24 semaglutide 14 mg tablet 14 mg PO DAILY 09/23/24 10/16/24 tirzepatide 5 mg/0.5 mL 5 mg subcut .1XW 09/23/24 10/16/24 subcutaneous pen injector (Ranjit) tizanidine 4 mg tablet 4 mg PO Q8H PRN 09/23/24 10/16/24 Previous Rx's ?Medication ?Instructions ?Recorded apixaban 5 mg tablet 5 mg PO BID #60 tabs 08/09/23 Walker- 2 Wheels #1 ea 09/08/23 lidocaine 5 % topical patch 1 patch transdermal Q12H #15 ea 09/23/24 <Judy Cabrera MD - Last Filed: 01/18/25 00:24> Allergies/Adverse Reactions: Allergies Allergy/AdvReac Type Severity Reaction Status Date / Time No Known Drug Allergies Allergy Verified 10/16/24 14:58 <Judy Cabrera MD - Last Filed: 01/18/25 00:24> Review of Systems Narrative: Past medical history, past surgical history, medications, allergies, family history, and social history were reviewed with the patient. No additional pertinent items. A medically appropriate review of systems was performed with pertinent positives and negatives noted in HPI, all other systems negative. <Judy Cabrera MD - Last Filed: 01/18/25 00:24> [facility] Medical History: Medical History Atrial fibrillation ?I48.91 - Unspecified atrial fibrillation (ICD-10) Lumbar back pain ?M54.50 - Low back pain, unspecified (ICD-10) Urinary tract infection, site not specified (02/14/07) ?N39.0 - Urinary tract infection, site not specified (ICD-10) Restless legs syndrome (RLS) (11/14/07) ?G25.81 - Restless legs syndrome (ICD-10) Pure hypercholesterolemia (02/14/07) ?E78.00 - Pure hypercholesterolemia, unspecified (ICD-10) Obesity (02/21/13) ?E66.9 - Obesity, unspecified (ICD-10) Obstructive sleep apnea ?G47.33 - Obstructive sleep apnea (adult) (pediatric) (ICD-10) Chronic osteoarthritis (10/04/12) ?M19.90 - Unspecified osteoarthritis, unspecified site (ICD-10) Gastroesophageal reflux (10/04/12) ?K21.9 - Gastro-esophageal reflux disease without esophagitis (ICD-10) Generalized anxiety disorder ?F41.1 - Generalized anxiety disorder (ICD-10) Hyperlipidemia (10/04/12) ?E78.5 - Hyperlipidemia, unspecified (ICD-10) Hypothyroidism (10/04/12) ?E03.9 - Hypothyroidism, unspecified (ICD-10) Primary hypertension (10/04/12) ?I10 - Essential (primary) hypertension (ICD-10) Type 2 diabetes mellitus ?E11.9 - Type 2 diabetes mellitus without complications (ICD-10) Dupuytren's contracture of left hand ?M72.0 - Palmar fascial fibromatosis [Dupuytren] (ICD-10) Left carpal tunnel syndrome ?G56.02 - Carpal tunnel syndrome, left upper limb (ICD-10) New onset atrial fibrillation (09/02/23) ?I48.91 - Unspecified atrial fibrillation (ICD-10) <Judy Cabrera MD - Last Filed: 01/18/25 00:24> Surgical History: Surgical History Status post right knee replacement (09/30/23) ?Z96.651 - Presence of right artificial knee joint (ICD-10) Hx of cholecystectomy ?Z90.49 - Acquired absence of other specified parts of digestive tract (ICD-10) H/O section ?Z98.891 - History of uterine scar from previous surgery (ICD-10) History of arthroscopy of right knee (11/07/08) ?Z98.890 - Other specified postprocedural states (ICD-10) History of hysteroscopy (01/26/11) ?Z98.890 - Other specified postprocedural states (ICD-10) History of arthroscopy of left shoulder (10/12/12) ?Z98.890 - Other specified postprocedural states (ICD-10) History of arthroscopy of left knee (05/17/14) ?Z98.890 - Other specified postprocedural states (ICD-10) History of arthroscopy of right shoulder (02/21/15) ?Z98.890 - Other specified postprocedural states (ICD-10) <Judy Cabrera MD - Last Filed: 01/18/25 00:24> Family History: Family History Sister Atrial fibrillation Father Lung cancer High blood pressure <Judy Cabrera MD - Last Filed: 01/18/25 00:24> Social History: Social History What is your current living situation?: I presently have a place to live Problems where you live: no known problems Problems where you live details: n/a In the past 12 months, utilities in danger of being shut off: no In past 12 months, lack of transportation kept you from medical appts, meetings, work, or getting things needed for daily living: no In the past 12 mos, have been you worried that your food would run out before you had money to buy more?: never true In the past 12 mos, the food you bought just didn't last and you didn't have money to buy more?: never true Highest level of school completed/degree received: Bachelor's degree Smoking Status: Never smoker Do you use any of these nicotine containing products: None Second hand tobacco smoke exposure: No How often do you have a drink containing alcohol: monthly or less Alcohol type: beer How many standard drinks containing alcohol do you have on a typical day: 1 or 2 How often do you have six or more drinks on one occasion: Never AUDIT-C Alcohol total score: 1 Non-prescribed substance use: denies use Caffeine: Yes How often does anyone, including family, friends and others, physically hurt you: never How often does anyone, including family, friends and others, insult or talk down to you: never How often does anyone, including family, friends and others, threaten you with harm: never How often does anyone, including family, friends and others, scream or curse at you: never service: No <Judy Cabrera MD - Last Filed: 01/18/25 00:24> Exam Narrative: Exam Narrative: General: Afebrile, in distress HEENT: Normocephalic, atraumatic, conjunctiva normal. MMM Neck: non-tender, supple Cardio: irregular rate. irregular rhythm Resp: Normal work of breathing, no respiratory distress, lungs clear bilaterally, no wheezing, rhonchi, rales Chest/Back: no visual signs of trauma, no midline tenderness, no CVA tenderness Abdomen: soft, non distension, no tenderness, no peritoneal signs Neuro: alert and fully oriented. CN II-XII grossly intact. Grossly normal strength and sensation in all extremities. MSK: no deformities. Normal range of motion Integumentary/Skin: no rash visualized, normal color Psych: normal affect, normal behavior <Judy Cabrera MD - Last Filed: 01/18/25 00:24> Const: Vital Signs, click to edit/add: Vital Signs - 24 hr 01/17/25 20:29 01/17/25 20:48 01/17/25 20:48 Temperature 97.4 F L Pulse Rate 136 H Pulse Rate [Pulse Oximeter] 157 H Respiratory Rate 28 H Blood Pressure Blood Pressure [Ri ght Upper Arm] 148/87 H Pulse Oximetry 97 95 96 Oxygen Delivery Me thod Room Air Oxygen Flow Rate 01/17/25 21:00 01/17/25 21:04 01/17/25 21:08 Temperature Pulse Rate 133 H Pulse Rate [Pulse Oximeter] Respiratory Rate 20 16 Blood Pressure 163/94 H Blood Pressure [Ri ght Upper Arm] Pulse Oximetry 99 99 Oxygen Delivery Me thod Nasal Cannula Oxygen Flow Rate 4 01/17/25 21:09 01/17/25 21:13 01/17/25 21:15 Temperature Pulse Rate 147 H 134 H 109 H Pulse Rate [Pulse Oximeter] Respiratory Rate 17 16 19 Blood Pressure 184/113 H 177/140 H Blood Pressure [Ri ght Upper Arm] Pulse Oximetry 99 95 92 Oxygen Delivery Me thod Oxygen Flow Rate 01/17/25 21:18 01/17/25 21:23 01/17/25 21:28 Temperature Pulse Rate 102 H 100 99 Pulse Rate [Pulse Oximeter] Respiratory Rate 17 14 12 Blood Pressure 156/98 H 159/84 H 155/85 H Blood Pressure [Ri ght Upper Arm] Pulse Oximetry 99 97 97 Oxygen Delivery Me thod Room Air Oxygen Flow Rate 01/17/25 21:33 01/17/25 21:38 01/17/25 22:16 Temperature 98.4 F Pulse Rate 96 103 H Pulse Rate [Pulse Oximeter] 91 Respiratory Rate 11 L 13 16 Blood Pressure 153/83 H 150/78 H Blood Pressure [Ri ght Upper Arm] 141/83 H Pulse Oximetry 97 95 98 Oxygen Delivery Me thod Room Air Room Air Room Air Oxygen Flow Rate <Judy Cabrera MD - Last Filed: 01/18/25 00:24> Vital Signs, click to edit/add: Vital Signs - 24 hr 01/17/25 20:29 01/17/25 20:48 01/17/25 20:48 Temperature 97.4 F L Pulse Rate 136 H Pulse Rate [Pulse Oximeter] 157 H Respiratory Rate 28 H Blood Pressure Blood Pressure [Ri ght Upper Arm] 148/87 H Pulse Oximetry 97 95 96 Oxygen Delivery Me thod Room Air Oxygen Flow Rate 01/17/25 21:00 01/17/25 21:04 01/17/25 21:08 Temperature Pulse Rate 133 H Pulse Rate [Pulse Oximeter] Respiratory Rate 20 16 Blood Pressure 163/94 H Blood Pressure [Ri ght Upper Arm] Pulse Oximetry 99 99 Oxygen Delivery Me thod Nasal Cannula Oxygen Flow Rate 4 01/17/25 21:09 01/17/25 21:13 01/17/25 21:15 Temperature Pulse Rate 147 H 134 H 109 H Pulse Rate [Pulse Oximeter] Respiratory Rate 17 16 19 Blood Pressure 184/113 H 177/140 H Blood Pressure [Ri ght Upper Arm] Pulse Oximetry 99 95 92 Oxygen Delivery Me thod Oxygen Flow Rate 01/17/25 21:18 01/17/25 21:23 01/17/25 21:28 Temperature Pulse Rate 102 H 100 99 Pulse Rate [Pulse Oximeter] Respiratory Rate 17 14 12 Blood Pressure 156/98 H 159/84 H 155/85 H Blood Pressure [Ri ght Upper Arm] Pulse Oximetry 99 97 97 Oxygen Delivery Me thod Room Air Oxygen Flow Rate 01/17/25 21:33 01/17/25 21:38 01/17/25 22:16 Temperature 98.4 F Pulse Rate 96 103 H Pulse Rate [Pulse Oximeter] 91 Respiratory Rate 11 L 13 16 Blood Pressure 153/83 H 150/78 H Blood Pressure [Ri ght Upper Arm] 141/83 H Pulse Oximetry 97 95 98 Oxygen Delivery Me thod Room Air Room Air Room Air Oxygen Flow Rate <Renee Boykin MD - Last Filed: 01/17/25 21:22> Course Consultations Consultation #1: I was consulted to provide sedation for cardioversion. Patient has had this procedure once before and is familiar. We discussed risks of sedation including over-sedation, need for airway management, aspiration. Discussed risks of cardioversion including arrhythmia and failure to convert. She has tolerated propofol well in the past. She does have sleep apnea and uses CPAP machine. She does not smoke. She is overweight. Procedure note: She was maintained on cardiac, pulse oximetry and end-tidal CO2 monitoring. She had oxygen by nasal cannula at 2 L. She was given initially 60 mg of propofol, followed by an additional 20 mg prior to initial shock at 200 joules. She did not convert with that, had an additional 10 mg of propofol for a 2nd shock with pads adjusted and converted to sinus rhythm. She had no time had any hypoxia or hypercapnia. Procedure tolerated well, we can without difficulty. <Renee Boykin MD - Last Filed: 01/17/25 21:22> Vital Signs Vital signs: Initial Vital Signs Temperature 97.4 F L 01/17/25 20:29 Temperature Source Temporal Artery Scan 01/17/25 20:29 Pulse Rate 157 H 01/17/25 20:29 Respiratory Rate 28 H 01/17/25 20:29 Blood Pressure 148/87 H 01/17/25 20:29 Blood Pressure Mean 107 H 01/17/25 20:29 Blood Pressure Position Sitting 01/17/25 20:29 Pulse Oximetry 97 01/17/25 20:29 Oxygen Delivery Method Room Air 01/17/25 20:29 Vital Signs Temperature 97.4 F L 01/17/25 20:29 Pulse Rate 157 H 01/17/25 20:29 Respiratory Rate 28 H 01/17/25 20:29 Blood Pressure 148/87 H 01/17/25 20:29 Pulse Oximetry 97 01/17/25 20:29 Oxygen Delivery Method Room Air 01/17/25 20:29 Temperature 98.4 F 01/17/25 22:16 Pulse Rate 91 01/17/25 22:16 Respiratory Rate 16 01/17/25 22:16 Blood Pressure 141/83 H 01/17/25 22:16 Pulse Oximetry 98 01/17/25 22:16 Oxygen Delivery Method Room Air 01/17/25 22:16 Oxygen Flow Rate 4 01/17/25 21:08 <Judy Cabrera MD - Last Filed: 01/18/25 00:24> Initial Vital Signs Temperature 97.4 F L 01/17/25 20:29 Temperature Source Temporal Artery Scan 01/17/25 20:29 Pulse Rate 157 H 01/17/25 20:29 Respiratory Rate 28 H 01/17/25 20:29 Blood Pressure 148/87 H 01/17/25 20:29 Blood Pressure Mean 107 H 01/17/25 20:29 Blood Pressure Position Sitting 01/17/25 20:29 Pulse Oximetry 97 01/17/25 20:29 Oxygen Delivery Method Room Air 01/17/25 20:29 Vital Signs Temperature 97.4 F L 01/17/25 20:29 Pulse Rate 157 H 01/17/25 20:29 Respiratory Rate 28 H 01/17/25 20:29 Blood Pressure 148/87 H 01/17/25 20:29 Pulse Oximetry 97 01/17/25 20:29 Oxygen Delivery Method Room Air 01/17/25 20:29 Temperature 98.4 F 01/17/25 22:16 Pulse Rate 91 01/17/25 22:16 Respiratory Rate 16 01/17/25 22:16 Blood Pressure 141/83 H 01/17/25 22:16 Pulse Oximetry 98 01/17/25 22:16 Oxygen Delivery Method Room Air 01/17/25 22:16 Oxygen Flow Rate 4 01/17/25 21:08 <Renee Boykin MD - Last Filed: 01/17/25 21:22> Medications Administered Medications: Discontinued Medications Generic Name Dose Route Start Last Admin Trade Name Freq PRN Reason Stop Dose Admin Potassium Chloride 40 meq 01/17/25 21:54 01/17/25 22:07 Potassium Chloride 10 Meq Capsule Er PO 01/17/25 21:55 40 meq ONCE ONE Administration Propofol 130 mg 01/17/25 20:58 01/17/25 21:09 Propofol 10 Mg/Ml Inj 1 mg/kg (130 mg) 01/17/25 20:59 90 mg IVP Administration ONCE ONE <Judy Cabrera MD - Last Filed: 01/18/25 00:24> Discontinued Medications Generic Name Dose Route Start Last Admin Trade Name Freq PRN Reason Stop Dose Admin Potassium Chloride 40 meq 01/17/25 21:54 01/17/25 22:07 Potassium Chloride 10 Meq Capsule Er PO 01/17/25 21:55 40 meq ONCE ONE Administration Propofol 130 mg 01/17/25 20:58 01/17/25 21:09 Propofol 10 Mg/Ml Inj 1 mg/kg (130 mg) 01/17/25 20:59 90 mg IVP Administration ONCE ONE <Renee Boykin MD - Last Filed: 01/17/25 21:22> MDM - Arrhythmia/Palpitations MDM Narrative Medical decision making narrative: Fide is a 59 yo female with a past medical history of Atrial Fibrillation, HTN, HL, DM on chronic anticoagulation with Eliquis who presents to the ED for evaluation of palpitations. Upon arrival patient is nontoxic appearing, afebrile, in distress. Patient here with tachy arrhythmia. Patient was placed a front desk monitor and IV was established upon arrival as well as EKG. I reviewed EKG which demonstrates atrial fibrillation with rapid ventricular response with a ventricular rate of 151 beats per minute, QTC 459, no acute ischemic change. I reviewed patient's prior medical record, patient was treated in the past with IV diltiazem as well as cardioversion. I discussed risk and benefits with patient and patient would like to proceed with cardioversion which I think is reasonable as patient is on chronic anticoagulation, symptoms started approximately 20 minutes prior to arrival. With assistance of my colleague Dr. Boykin as well as verbal and written consent. Patient agrees to procedural sedation and electrical cardioversion. Patient was sedated with a total of 90 propofol and was electrically cardioverted after 2 attempts (200J, 200J). I reviewed repeat EKG which demonstrates sinus tachycardia with a ventricular rate of 104 beats per minute, QTC 460, no acute ischemic change. Patient reports complete improvement of her symptoms. Patient recovered from sedation and procedure well without complication. Comprehensive labs were reviewed and remarkable for no leukocytosis white blood cell count 7.1, hemoglobin 13.1, potassium slightly low at 3.1 which was replaced in the emergency department, in and get 16, glucose 125. Patient received 1 L normal saline IV fluid bolus, was able to ambulate without difficulty, no like to discharge. At this time pain plan for discharge with close outpatient follow-up with her primary care provider as well as our Cardiology due to recurrent episode of AFib with RVR. Recommend continue supportive care, continue prior medications, strict return precautions discussed. Patient understands agrees the plan. <Judy Cabrera MD - Last Filed: 01/18/25 00:24> Medical Records Attestation: I reviewed the patient's medical records. <Judy Cabrera MD - Last Filed: 01/18/25 00:24> Lab Data Attestation: I reviewed the patient's lab results. <Judy Cabrera MD - Last Filed: 01/18/25 00:24> Labs: Lab Results 01/17/25 01/17/25 Range/Units 20:40 20:48 WBC 7.15 (4.50-11.00) K/uL RBC 4.97 (4.00-5.20) m/uL Hgb 13.1 (12.0-16.0) gm/dL Hct 42.3 (33.0-51.0) % MCV 85 (80-100) fL MCH 26 (26-34) pg MCHC 31 L (32-36) gm/dL RDW Coeff of Aziza 12.6 (11.5-15.5) % Plt Count 265 (140-440) K/uL Neut % (Auto) 50.5 (42.0-72.0) % Lymph % (Auto) 38.9 (20-44) % [place] % (Auto) 7.8 (0.0-11.0) % Eos % (Auto) 2.4 (0.0-7.0) % Baso % (Auto) 0.3 (0.0-3.0) % Neut # (Auto) 3.61 (1.7-7.0) K/uL Lymph # (Auto) 2.78 (0.90-2.90) K/uL [place] # (Auto) 0.60 (0.00-0.90) K/UL Eos # (Auto) 0.17 (0.00-0.50) K/uL Baso # (Auto) 0.02 (0.00-0.30) K/uL Abs Immat Gran (auto) 0.01 (0.00-0.30) K/uL Imm/Tot Granulo (auto) 0.1 % Sodium 141 (135-149) mmol/L Potassium 3.1 L (3.6-5.1) mmol/L Chloride 99 (96-114) mmol/L Carbon Dioxide 26 (20-32) mmol/L Anion Gap 16 H (7-15) mEq/L BUN 20 (7-30) mg/dL Creatinine 1.2 (0.5-1.5) mg/dL Estimated Creat Clear 52.10 Estimated GFR 52 ml/min Glucose 125 H (60-115) mg/dL Calcium 9.5 (8.4-10.6) mg/dL Magnesium 1.7 (1.5-2.6) mg/dL POC Troponin I 0.00 L (0.01-0.04) ng/ml <Judy Cabrera MD - Last Filed: 01/18/25 00:24> Lab Results 01/17/25 01/17/25 Range/Units 20:40 20:48 WBC 7.15 (4.50-11.00) K/uL RBC 4.97 (4.00-5.20) m/uL Hgb 13.1 (12.0-16.0) gm/dL Hct 42.3 (33.0-51.0) % MCV 85 (80-100) fL MCH 26 (26-34) pg MCHC 31 L (32-36) gm/dL RDW Coeff of [place] 12.6 (11.5-15.5) % Plt Count 265 (140-440) K/uL Neut % (Auto) 50.5 (42.0-72.0) % Lymph % (Auto) 38.9 (20-44) % [place] % (Auto) 7.8 (0.0-11.0) % Eos % (Auto) 2.4 (0.0-7.0) % Baso % (Auto) 0.3 (0.0-3.0) % Neut # (Auto) 3.61 (1.7-7.0) K/uL Lymph # (Auto) 2.78 (0.90-2.90) K/uL [place] # (Auto) 0.60 (0.00-0.90) K/UL Eos # (Auto) 0.17 (0.00-0.50) K/uL Baso # (Auto) 0.02 (0.00-0.30) K/uL Abs Immat Gran (auto) 0.01 (0.00-0.30) K/uL Imm/Tot Granulo (auto) 0.1 % Sodium 141 (135-149) mmol/L Potassium 3.1 L (3.6-5.1) mmol/L Chloride 99 (96-114) mmol/L Carbon Dioxide 26 (20-32) mmol/L Anion Gap 16 H (7-15) mEq/L BUN 20 (7-30) mg/dL Creatinine 1.2 (0.5-1.5) mg/dL Estimated Creat Clear 52.10 Estimated GFR 52 ml/min Glucose 125 H (60-115) mg/dL Calcium 9.5 (8.4-10.6) mg/dL Magnesium 1.7 (1.5-2.6) mg/dL POC Troponin I 0.00 L (0.01-0.04) ng/ml <Renee Boykin MD - Last Filed: 01/17/25 21:22> Critical Care Time Critical Care Time Critical Care Time: Yes Attestation: The patient required my highest level preparedness to intervene emergently and I personally spent this critical care time directly and personally managing the patient. This critical care time included: Obtaining a history; Examining the patient; Pulse oximetry; Ordering and reviewing of studies; Arranging urgent treatment with development of a management plan; Evaluation of patients response to treatment; Frequent reassessment discussions with other providers. This critical care time was performed to assess and manage the high probability of imminent life-threatening deterioration that could result in multiorgan failure. It was exclusive of separate billable procedures and treating other patients and teaching time. 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 Please call in the morning to schedule an appointment. Please continue old medications, rest, drink plenty of fluids. Please return to the emergency department if you develop high fever, chest pain, shortness of breath, weakness, recurrent palpitations, any worsening symptoms. It was a pleasure taking care of you today. We hope you feel better soon. <Judy Cabrera MD - Last Filed: 01/18/25 00:24> Prescriptions: No Action metformin 750 mg tablet extended release 24 hr 750 mg PO DAILY metoprolol tartrate 100 mg tablet 100 mg PO BID lisinopril 40 mg tablet 40 mg PO DAILY levothyroxine 125 mcg tablet 125 mcg PO DAILY (DME) lancets [Microlet Lancet] Misc See Rx Instructions .ROUTE .MEDSUPPLY Qty: 100 Patient Comments: TEST DAILY Rx Instructions: As directed (DME) Contour Next Test Strips Strip See Rx Instructions .ROUTE .MEDSUPPLY Qty: 10 Patient Comments: TEST DAILY Rx Instructions: As directed (DME) blood-glucose meter [Contour Next Meter] [facility] [place] See Rx Instructions .ROUTE .MEDSUPPLY Qty: 1 Patient Comments: USE DIRECTED Rx Instructions: As directed apixaban 5 mg tablet 5 mg PO BID Qty: 60 0RF acetaminophen 500 mg tablet 1,000 mg PO Q6-8H PRN prednisone 20 mg tablet 20 mg PO .UD Patient Comments: 40MG DAILY X 4 DAYS, THEN 20MG DAILY X 4 DAYS hydrochlorothiazide 12.5 mg capsule 12.5 mg PO DAILY Mounjaro 5 mg/0.5 mL pen injector 5 mg subcut .1XW tizanidine 4 mg tablet 4 mg PO Q8H PRN Rx Instructions: #15 TABS clobetasol 0.05 % cream 1 applic topical DAILY PRN (Reason: itching) semaglutide 14 mg tablet 14 mg PO DAILY Rx Instructions: TAKE BEFORE A MEAL lidocaine 5 % Adhesive Patch,Medicated 1 patch transdermal Q12H Qty: 15 0RF (DME) Walker- 2 Wheels [facility] [place] See Rx Instructions .Route Qty: 1 0RF Rx Instructions: As directed pantoprazole 40 mg tablet,delayed release (DR/EC) 40 mg PO DAILY celecoxib 200 mg capsule 200 mg PO DAILY PRN lorazepam 1 mg tablet 1 mg PO HS PRN rosuvastatin 10 mg tablet 10 mg PO HS nystatin [Nystop] 100,000 unit/gram powder 1 applic topical DAILY PRN <Judy Cabrera MD - Last Filed: 01/18/25 00:24> Follow Up/Referrals: Joann Brown DO [Primary Care Provider, Family Practice] <Judy Cabrera MD - Last Filed: 01/18/25 00:24> Stand Alone Forms: My[employer] Info Instructions <Judy Cabrera MD - Last Filed: 01/18/25 00:24> Procedures Additional Procedures Procedure name: Electrical cardioversion <Judy Cabrera MD - Last Filed: 01/18/25 00:24> Pre procedure diagnosis: Atrial fibrillation with rapid ventricular response <Judy Cabrera MD - Last Filed: 01/18/25 00:24> Post procedure diagnosis: Successfu cardioversion of atrial fibrillation with RVR to sinus tachycard <Judy Cabrera MD - Last Filed: 01/18/25 00:24> Written consent by: patient <Judy Cabrera MD - Last Filed: 01/18/25 00:24> Verification/time out: correct patient <Judy Cabrera MD - Last Filed: 01/18/25 00:24> Conclusion: patient tolerated procedure <Judy Cabrera MD - Last Filed: 01/18/25 00:24> Additional comments: cardioversion successful after 2 attempts (200J, 200J) <Judy Cabrera MD - Last Filed: 01/18/25 00:24>
[2025-01-17 20:58] LABS: Hematocrit* 42.3 % (33.0-51.0); Hemoglobin* 13.1 gm/dL (12.0-16.0); Immature Granulocytes Abs Auto 0.01 K/uL (0.00-0.30); Immature Granulocytes Pct Auto 0.1 %; Lymphocytes Absolute Auto 2.78 K/uL (0.90-2.90); Mean Corpuscular HGB Conc 31 gm/dL (32-36); Mean Corpuscular Hemoglobin 26 pg (26-34); Mean Corpuscular Volume 85 fL (80-100); RDW Coefficient of Variation % 12.6 % (11.5-15.5); Red Blood Count* 4.97 m/uL (4.00-5.20); White Blood Count* 7.15 K/uL (4.50-11.00)
[2025-01-17 20:58] LABS: Troponin, Point-of-Care* 0.00 ng/ml (0.01-0.04)
[2025-01-17] MEDS: PROPOFOL 10 MG/ML INJ 130 MG IVP (21:09)
[2025-01-17 21:19] LABS: Chloride* 99 mmol/L (96-114); Potassium* 3.1 mmol/L (3.6-5.1)
[2025-01-17 21:22] LABS: Blood Urea Nitrogen* 20 mg/dL (7-30); Calcium* 9.5 mg/dL (8.4-10.6); Carbon Dioxide* 26 mmol/L (20-32); Creatinine* 1.2 mg/dL (0.5-1.5); Est. Creatinine Clearance* 52.10; Estimated Glomerular Filt Rate 52 ml/min; Glucose* 125 mg/dL (60-115)
[2025-01-17 21:39] LABS: Slide Review Reflex No
[2025-01-17 21:46] LABS: Anion Gap 16 mEq/L (7-15); Sodium* 141 mmol/L (135-149)
[2025-01-17] MEDS: POTASSIUM CHLORIDE 10 MEQ CAPSULE ER 40 MEQ PO (22:07)
== END 2025-01-17 22:20 | disposition home or self-care (01) ==
PROVIDERS: Emergency Provider Emergency Medicine; PCP Family Medicine
DX: I48.20 Chronic atrial fibrillation, unspecified (principal); R00.2 Palpitations; E87.6 Hypokalemia; I10 Essential (primary) hypertension; E78.5 Hyperlipidemia, unspecified; E11.9 Type 2 diabetes mellitus without complications; Z79.01 Long term (current) use of anticoagulants; Z79.84 Long term (current) use of oral hypoglycemic drugs; Z79.85 Long-term (current) use of injectable non-insulin antidiabetic drugs
CPT/HCPCS: 36415; 80048; 83735; 84484; 85025; 92960; 93005; 94761; 99285; 99291; A9270; J2704